=== PATIENT | female | born 1940 | race Caucasian/White ===

== ENCOUNTER 2017-08-19 19:37 | Emergency (ER) | payer MEDICARE, OTHER ==
[~2017-08-19] VITALS: Ht 157.5 cm; Wt 56.7 kg
[2017-08-19 19:49] VITALS: BP 188/92
== END 2017-08-20 01:18 | disposition home or self-care (01) ==
LOC: ER 19:37
DX: B02.9 Zoster without complications (principal); E11.9 Type 2 diabetes mellitus without complications; I10 Essential (primary) hypertension; E78.5 Hyperlipidemia, unspecified
CPT/HCPCS: 82962

== ENCOUNTER 2021-05-26 22:09 | Inpatient (IN) | payer MEDICARE, OTHER ==
[~2021-05-26] VITALS: Ht 157.5 cm; Wt 62.0 kg
[2021-05-26 23:20] LABS: Basophils # (auto) 0 10 ^3/uL (0-0.2); Basophils % (auto) 0.6 % (0.0-2.0); Eosinophils # (auto) 0 10 ^3/uL (0-0.8); Eosinophils % (auto) 0.4 % (0.0-7.0); Hematocrit 37.7 % (36.0-46.0); Hemoglobin 13.1 g/dL (12.2-16.2); Lymphocytes # (auto) 0.6 10 ^3/uL (0.4-5.4); Lymphocytes % (auto) 7.8 % (10.0-50.0); Mean Corpuscular Hemoglobin 33.3 pg (28.0-32.0); Mean Corpuscular Hgb Conc. 34.7 g/dL (32.0-36.0); Monocytes # (auto) 1.2 10 ^3/uL (0-1.3); Monocytes % (auto) 16.5 % (0.0-12.0); Neutrophils # (auto) 5.4 10 ^3/uL (1.6-8.6); Neutrophils % (auto) 74.7 % (37.0-80.0); Nucleated Red Blood Cells % 0.1 %; Red Blood Cells 3.92 10^6/uL (4.0-5.20); Red Cell Distribution Width 13.5 % (11.8-14.3); White Blood Cell 7.2 10^3/uL (4.4-10.8)
[2021-05-26 23:39] LABS: Albumin 3.7 g/dL (3.4-5.0); Calcium 8.5 mg/dL (8.5-10.1)
[2021-05-26 23:45] LABS: BUN/Creatinine Ratio 16.5; Bilirubin, Total 0.5 mg/dL (0.2-1.0); Total Protein 7.2 g/dL (6.4-8.2)
[2021-05-27] MEDS ORDERED: SODIUM CHLORIDE 0.9% 1,000 ML IV SCH (07:45)
[2021-05-27] MEDS ORDERED: MORPHINE SULFATE INJECTION 2 MG/ML SYRG IV PRN (07:45)
[2021-05-27] MEDS ORDERED: HYDROcodone-ACET 5/325MG TAB PO PRN (07:45)
[2021-05-27] MEDS ORDERED: DEXTROSE (50%) 50ML SYRG IV PRN (07:45)
[2021-05-27] MEDS ORDERED: ONDANSETRON HCL 4 MG/2 ML VIAL IV PRN (07:45)
[2021-05-27] MEDS ORDERED: DOCUSATE SOD 100 MG CAP PO PRN (07:45)
[2021-05-27] MEDS ORDERED: NITROGLYCERIN 0.4 MG SL TAB SL PRN (07:45)
[2021-05-27] MEDS ORDERED: FUROSEMIDE 20 MG/2 ML VIAL IV ONE (07:45)
[2021-05-27] MEDS ORDERED: ACETAMINOPHEN 500 MG TAB PO PRN (07:45)
[2021-05-27] MEDS: ALBUTEROL SULF HFA 90MCG INH 200DOSE IN PRN ×2 (09:00→20:33)
[2021-05-27] MEDS: BUDESONIDE (INHALATION) 180 MCG IH IN SCH ×2 (09:00→20:32)
[2021-05-27 09:38] LABS: Basophils # (auto) 0 10 ^3/uL (0-0.2); Basophils % (auto) 0.6 % (0.0-2.0); Eosinophils # (auto) 0 10 ^3/uL (0-0.8); Eosinophils % (auto) 0.1 % (0.0-7.0); Hematocrit 37.4 % (36.0-46.0); Hemoglobin 12.7 g/dL (12.2-16.2); Lymphocytes # (auto) 0.7 10 ^3/uL (0.4-5.4); Mean Corpuscular Hemoglobin 32.9 pg (28.0-32.0); Mean Corpuscular Volume 96.6 fL (80.0-100.0); Monocytes # (auto) 1.2 10 ^3/uL (0-1.3); Monocytes % (auto) 14.4 % (0.0-12.0); Neutrophils # (auto) 6.3 10 ^3/uL (1.6-8.6); Neutrophils % (auto) 75.9 % (37.0-80.0); Nucleated Red Blood Cells % 0.1 %; Red Blood Cells 3.87 10^6/uL (4.0-5.20); Red Cell Distribution Width 13.6 % (11.8-14.3); White Blood Cell 8.3 10^3/uL (4.4-10.8)
[2021-05-27 10:05] LABS: Potassium 3.7 mmol/L (3.5-5.1)
[2021-05-27 10:11] LABS: Albumin 3.5 g/dL (3.4-5.0); BUN/Creatinine Ratio 18.8; Bilirubin, Total 0.4 mg/dL (0.2-1.0); Calcium 8.7 mg/dL (8.5-10.1); Magnesium 1.9 mg/dL (1.6-2.6); Total Protein 6.8 g/dL (6.4-8.2)
[2021-05-27 10:15] VITALS: BP 152/53
[2021-05-27] MEDS ORDERED: REMDESIVIR PER PHARMACY 0 ML IV SCH (10:45)
[2021-05-27] MEDS ORDERED: ATOR10TA PO (11:09)
[2021-05-27] MEDS ORDERED: NIFE1TAB36 PO (11:09)
[2021-05-27] MEDS ORDERED: IRBE300T43 PO (11:09)
[2021-05-27] MEDS ORDERED: DONE1TAB88 PO (11:09)
[2021-05-27] MEDS ORDERED: PIO30T PO (11:09)
[2021-05-27] MEDS ORDERED: METO-6 PO (11:09)
[2021-05-27] MEDS ORDERED: ASPI1TAB20 PO (11:09)
[2021-05-27] MEDS ORDERED: METF-372 PO (11:09)
[2021-05-27] MEDS ORDERED: METOPROLOL SUCCINATE XL 50 MG TAB PO ONE (11:30)
[2021-05-27] MEDS ORDERED: NIFEdipine ER 30 MG TAB PO ONE (11:30)
[2021-05-27] MEDS: DexAMETHasone SOD PHOS 10MG/1ML VIAL INJ IV SCH (11:33)
[2021-05-27] MEDS: FUROSEMIDE 20 MG/2 ML VIAL IV SCH (11:33)
[2021-05-27] MEDS: FAMOTIDINE (10MG/ML) 2ML VL IV SCH ×2 (11:33→22:14)
[2021-05-27] MEDS: ASCORBIC ACID 1,000 MG TAB PO SCH (11:34)
[2021-05-27] MEDS: ZINC SULFATE 220mg CAP or TAB PO SCH (11:34)
[2021-05-27] MEDS: CHOLECALCIFEROL (VITD3) 2,000 UNIT CAP/TAB PO SCH (11:34)
[2021-05-27] MEDS: MULTIPLE VITAMIN TAB PO SCH (11:34)
[2021-05-27] MEDS: AZITHROMYCIN 500MG/ 250ML 250 ML IV SCH (11:35)
[2021-05-27] MEDS: ENOXAPARIN SOD 40 MG/0.4 ML SYRINGE SC SCH ×2 (11:35→22:15)
[2021-05-27] MEDS: ACCU-CHEK COMFORT CURVE STRIP VI SCH ×3 (11:49→22:15)
[2021-05-27] MEDS ORDERED: REMDESIVIR 200 MG in NS 210ml LOADING DOSE ADULT IV ONE (12:00)
[2021-05-27] MEDS: InsuLIN REG 1unit/0.01ml Soln (100units/ml) SC SCH ×3 (12:14→22:08)
[2021-05-27 13:00] VITALS: BP 152/53
[2021-05-27 17:00] VITALS: BP 154/76
[2021-05-27 22:00] VITALS: BP 114/63
[2021-05-27] MEDS: INSULIN LANTUS (GLARGINE) 1 /0.01ml (100units/ml) SC SCH (22:07)
[2021-05-27] MEDS: ATORVASTATIN 20 MG TAB PO SCH (22:14)
[2021-05-27] MEDS: DONEPEZIL HYDROCHLORIDE 5 MG TAB PO SCH (22:14)
[2021-05-28 05:00] VITALS: BP 113/73
[2021-05-28] MEDS: BUDESONIDE (INHALATION) 180 MCG IH IN SCH ×2 (05:45→20:00)
[2021-05-28] MEDS: ALBUTEROL SULF HFA 90MCG INH 200DOSE IN PRN ×2 (05:45→20:00)
[2021-05-28] MEDS: ACCU-CHEK COMFORT CURVE STRIP VI SCH ×4 (06:18→21:23)
[2021-05-28] MEDS: InsuLIN REG 1unit/0.01ml Soln (100units/ml) SC SCH ×4 (06:24→21:21)
[2021-05-28 07:38] LABS: Basophils # (auto) 0 10 ^3/uL (0-0.2); Basophils % (auto) 0.1 % (0.0-2.0); Eosinophils # (auto) 0 10 ^3/uL (0-0.8); Hematocrit 37.9 % (36.0-46.0); Hemoglobin 13.3 g/dL (12.2-16.2); Lymphocytes # (auto) 0.9 10 ^3/uL (0.4-5.4); Lymphocytes % (auto) 7.8 % (10.0-50.0); Mean Corpuscular Hemoglobin 33.5 pg (28.0-32.0); Mean Corpuscular Volume 95.8 fL (80.0-100.0); Monocytes # (auto) 1.1 10 ^3/uL (0-1.3); Neutrophils # (auto) 10.1 10 ^3/uL (1.6-8.6); Neutrophils % (auto) 83.1 % (37.0-80.0); Red Blood Cells 3.96 10^6/uL (4.0-5.20); Red Cell Distribution Width 13.3 % (11.8-14.3); White Blood Cell 12.1 10^3/uL (4.4-10.8)
[2021-05-28 07:46] LABS: Albumin 3.2 g/dL (3.4-5.0); Calcium 8.6 mg/dL (8.5-10.1); Potassium 3.6 mmol/L (3.5-5.1)
[2021-05-28 07:49] LABS: Bilirubin, Total 0.3 mg/dL (0.2-1.0); Total Protein 6.6 g/dL (6.4-8.2)
[2021-05-28 09:00] VITALS: BP 122/63
[2021-05-28] MEDS: FAMOTIDINE (10MG/ML) 2ML VL IV SCH ×2 (09:27→21:20)
[2021-05-28] MEDS: FUROSEMIDE 20 MG/2 ML VIAL IV SCH (09:27)
[2021-05-28] MEDS: DexAMETHasone SOD PHOS 10MG/1ML VIAL INJ IV SCH (09:27)
[2021-05-28] MEDS: AZITHROMYCIN 500MG/ 250ML 250 ML IV SCH (09:28)
[2021-05-28] MEDS: ZINC SULFATE 220mg CAP or TAB PO SCH (09:28)
[2021-05-28] MEDS: LOSARTAN POTASSIUM 25 MG TAB PO SCH (09:29)
[2021-05-28] MEDS: NIFEdipine ER 30 MG TAB PO SCH (09:29)
[2021-05-28] MEDS: MULTIPLE VITAMIN TAB PO SCH (09:29)
[2021-05-28] MEDS: METOPROLOL SUCCINATE XL 50 MG TAB PO SCH (09:30)
[2021-05-28] MEDS: ASCORBIC ACID 1,000 MG TAB PO SCH (09:30)
[2021-05-28] MEDS: CHOLECALCIFEROL (VITD3) 2,000 UNIT CAP/TAB PO SCH (09:31)
[2021-05-28] MEDS: ENOXAPARIN SOD 40 MG/0.4 ML SYRINGE SC SCH ×2 (09:41→21:23)
[2021-05-28] MEDS ORDERED: FUROSEMIDE 40 MG TAB PO SCH (10:00)
[2021-05-28 13:00] VITALS: BP 133/64
[2021-05-28] MEDS: REMDESIVIR 100mg 100 MG in SODIUM CHL 0.9% 230 ML IV SCH (15:58)
[2021-05-28 17:00] VITALS: BP 132/68
[2021-05-28] MEDS: DONEPEZIL HYDROCHLORIDE 5 MG TAB PO SCH (21:20)
[2021-05-28] MEDS: ATORVASTATIN 20 MG TAB PO SCH (21:20)
[2021-05-28] MEDS: INSULIN LANTUS (GLARGINE) 1 /0.01ml (100units/ml) SC SCH (21:23)
[2021-05-28 22:00] VITALS: BP 124/47
[2021-05-29 05:00] VITALS: BP 126/66
[2021-05-29] MEDS: InsuLIN REG 1unit/0.01ml Soln (100units/ml) SC SCH ×4 (06:00→21:48)
[2021-05-29] MEDS: ACCU-CHEK COMFORT CURVE STRIP VI SCH ×4 (06:03→21:49)
[2021-05-29 07:04] LABS: Calcium 8.9 mg/dL (8.5-10.1); Potassium 3.8 mmol/L (3.5-5.1)
[2021-05-29 07:06] LABS: Albumin 3.3 g/dL (3.4-5.0)
[2021-05-29 07:09] LABS: Bilirubin, Total 0.4 mg/dL (0.2-1.0); Total Protein 6.6 g/dL (6.4-8.2)
[2021-05-29] MEDS: DexAMETHasone SOD PHOS 10MG/1ML VIAL INJ IV SCH (08:51)
[2021-05-29] MEDS: FUROSEMIDE 20 MG/2 ML VIAL IV SCH (08:51)
[2021-05-29] MEDS: AZITHROMYCIN 500MG/ 250ML 250 ML IV SCH (08:51)
[2021-05-29] MEDS: FAMOTIDINE (10MG/ML) 2ML VL IV SCH ×2 (08:51→21:49)
[2021-05-29] MEDS: NIFEdipine ER 30 MG TAB PO SCH (08:52)
[2021-05-29] MEDS: MULTIPLE VITAMIN TAB PO SCH (08:52)
[2021-05-29] MEDS: ZINC SULFATE 220mg CAP or TAB PO SCH (08:52)
[2021-05-29] MEDS: LOSARTAN POTASSIUM 25 MG TAB PO SCH (08:52)
[2021-05-29] MEDS: ASCORBIC ACID 1,000 MG TAB PO SCH (08:53)
[2021-05-29] MEDS: METOPROLOL SUCCINATE XL 50 MG TAB PO SCH (08:53)
[2021-05-29] MEDS: CHOLECALCIFEROL (VITD3) 2,000 UNIT CAP/TAB PO SCH (08:53)
[2021-05-29] MEDS: ENOXAPARIN SOD 40 MG/0.4 ML SYRINGE SC SCH (08:54)
[2021-05-29 09:00] VITALS: BP 133/62
[2021-05-29] MEDS: BUDESONIDE (INHALATION) 180 MCG IH IN SCH ×2 (09:32→19:03)
[2021-05-29] MEDS: ALBUTEROL SULF HFA 90MCG INH 200DOSE IN PRN ×2 (09:33→19:03)
[2021-05-29 13:00] VITALS: BP 130/63
[2021-05-29] MEDS: REMDESIVIR 100mg 100 MG in SODIUM CHL 0.9% 230 ML IV SCH (13:59)
[2021-05-29 17:00] VITALS: BP 129/66
[2021-05-29] MEDS: INSULIN LANTUS (GLARGINE) 1 /0.01ml (100units/ml) SC SCH (21:48)
[2021-05-29] MEDS: DONEPEZIL HYDROCHLORIDE 5 MG TAB PO SCH (21:49)
[2021-05-29] MEDS: ATORVASTATIN 20 MG TAB PO SCH (21:49)
[2021-05-30] MEDS: InsuLIN REG 1unit/0.01ml Soln (100units/ml) SC SCH ×4 (06:00→21:53)
[2021-05-30] MEDS: ACCU-CHEK COMFORT CURVE STRIP VI SCH ×4 (06:00→21:51)
[2021-05-30 06:18] LABS: Albumin 3.2 g/dL (3.4-5.0); Calcium 8.6 mg/dL (8.5-10.1)
[2021-05-30 06:23] LABS: Bilirubin, Total 0.4 mg/dL (0.2-1.0); Total Protein 6.2 g/dL (6.4-8.2)
[2021-05-30] MEDS: BUDESONIDE (INHALATION) 180 MCG IH IN SCH ×2 (07:25→19:34)
[2021-05-30] MEDS: ALBUTEROL SULF HFA 90MCG INH 200DOSE IN PRN ×2 (07:26→19:34)
[2021-05-30 09:00] VITALS: BP 132/61
[2021-05-30] MEDS: FUROSEMIDE 20 MG/2 ML VIAL IV SCH (09:42)
[2021-05-30] MEDS: DexAMETHasone SOD PHOS 10MG/1ML VIAL INJ IV SCH (09:42)
[2021-05-30] MEDS: FAMOTIDINE (10MG/ML) 2ML VL IV SCH (09:43)
[2021-05-30] MEDS: AZITHROMYCIN 500MG/ 250ML 250 ML IV SCH (09:44)
[2021-05-30] MEDS: MULTIPLE VITAMIN TAB PO SCH (09:45)
[2021-05-30] MEDS: ASCORBIC ACID 1,000 MG TAB PO SCH (09:45)
[2021-05-30] MEDS: CHOLECALCIFEROL (VITD3) 2,000 UNIT CAP/TAB PO SCH (09:45)
[2021-05-30] MEDS: ZINC SULFATE 220mg CAP or TAB PO SCH (09:45)
[2021-05-30] MEDS: METOPROLOL SUCCINATE XL 50 MG TAB PO SCH (09:46)
[2021-05-30] MEDS: NIFEdipine ER 30 MG TAB PO SCH (09:48)
[2021-05-30] MEDS: LOSARTAN POTASSIUM 25 MG TAB PO SCH ×3 (09:51→10:41)
[2021-05-30 12:54] VITALS: BP 122/65
[2021-05-30] MEDS: REMDESIVIR 100mg 100 MG in SODIUM CHL 0.9% 230 ML IV SCH (16:06)
[2021-05-30] MEDS: metFORMIN HYDROCHLORIDE 500 MG TAB PO SCH (17:23)
[2021-05-30] MEDS: DONEPEZIL HYDROCHLORIDE 5 MG TAB PO SCH (21:50)
[2021-05-30] MEDS: ATORVASTATIN 20 MG TAB PO SCH (21:51)
[2021-05-31 01:11] VITALS: BP 120/58
[2021-05-31 05:00] VITALS: BP 144/74
[2021-05-31] MEDS: ACCU-CHEK COMFORT CURVE STRIP VI SCH ×3 (06:03→17:25)
[2021-05-31] MEDS: ALBUTEROL SULF HFA 90MCG INH 200DOSE IN PRN (06:05)
[2021-05-31] MEDS: InsuLIN REG 1unit/0.01ml Soln (100units/ml) SC SCH ×3 (06:05→17:32)
[2021-05-31] MEDS: BUDESONIDE (INHALATION) 180 MCG IH IN SCH (06:05)
[2021-05-31 07:50] LABS: Basophils # (auto) 0 10 ^3/uL (0-0.2); Basophils % (auto) 0.2 % (0.0-2.0); Eosinophils # (auto) 0 10 ^3/uL (0-0.8); Eosinophils % (auto) 0.2 % (0.0-7.0); Hematocrit 41.2 % (36.0-46.0); Hemoglobin 14.1 g/dL (12.2-16.2); Lymphocytes # (auto) 2.1 10 ^3/uL (0.4-5.4); Lymphocytes % (auto) 34.3 % (10.0-50.0); Mean Corpuscular Hemoglobin 32.8 pg (28.0-32.0); Mean Corpuscular Hgb Conc. 34.2 g/dL (32.0-36.0); Mean Corpuscular Volume 96.1 fL (80.0-100.0); Monocytes # (auto) 0.5 10 ^3/uL (0-1.3); Monocytes % (auto) 8.6 % (0.0-12.0); Neutrophils # (auto) 3.6 10 ^3/uL (1.6-8.6); Neutrophils % (auto) 56.7 % (37.0-80.0); Red Blood Cells 4.28 10^6/uL (4.0-5.20); White Blood Cell 6.3 10^3/uL (4.4-10.8)
[2021-05-31 08:38] LABS: Albumin 3.1 g/dL (3.4-5.0); BUN/Creatinine Ratio 27.6; Bilirubin, Total 0.5 mg/dL (0.2-1.0); CRP High Sensitivity 1.3 mg/dL (< 0.3); Calcium 8.5 mg/dL (8.5-10.1); Total Protein 6.3 g/dL (6.4-8.2)
[2021-05-31 09:00] VITALS: BP 138/69
[2021-05-31] MEDS: metFORMIN HYDROCHLORIDE 500 MG TAB PO SCH ×2 (09:13→17:26)
[2021-05-31] MEDS: FUROSEMIDE 20 MG/2 ML VIAL IV SCH (09:14)
[2021-05-31] MEDS: AZITHROMYCIN 500MG/ 250ML 250 ML IV SCH (09:14)
[2021-05-31] MEDS ORDERED: DEX4T PO (09:15)
[2021-05-31] MEDS: DexAMETHasone SOD PHOS 10MG/1ML VIAL INJ IV SCH (09:15)
[2021-05-31] MEDS ORDERED: CHOL1CAP47 PO (09:15)
[2021-05-31] MEDS: ZINC SULFATE 220mg CAP or TAB PO SCH (09:15)
[2021-05-31] MEDS ORDERED: ASCO10003 PO (09:15)
[2021-05-31] MEDS ORDERED: ZINC220T6 PO (09:15)
[2021-05-31] MEDS ORDERED: ALBUAER3 IN (09:15)
[2021-05-31] MEDS: MULTIPLE VITAMIN TAB PO SCH (09:16)
[2021-05-31] MEDS: ASCORBIC ACID 1,000 MG TAB PO SCH (09:17)
[2021-05-31] MEDS: NIFEdipine ER 30 MG TAB PO SCH (09:17)
[2021-05-31] MEDS: CHOLECALCIFEROL (VITD3) 2,000 UNIT CAP/TAB PO SCH (09:17)
[2021-05-31] MEDS: LOSARTAN POTASSIUM 25 MG TAB PO SCH (09:18)
[2021-05-31] MEDS ORDERED: FAMOTIDINE 20 MG TAB PO SCH (10:00)
[2021-05-31 13:00] VITALS: BP 134/63
[2021-05-31 14:22] VITALS: BP 138/69
[2021-05-31] MEDS: REMDESIVIR 100mg 100 MG in SODIUM CHL 0.9% 230 ML IV SCH (16:00)
[2021-05-31 17:00] VITALS: BP 129/70
== END 2021-05-31 18:25 | disposition home or self-care (01) | DRG 871 ==
LOC: ER 22:09 → TELE 05-27 07:35 → TELE-EAST 05-27 10:15
PROVIDERS: ADMIT Nurse Practitioner Family; ATTEND Internal Medicine
PROC: 3E0234Z Introduction of Serum, Toxoid and Vaccine into Muscle, Percutaneous Approach (ICD-10-PCS; principal; 2021-05-27)
DX: A41.89 Other specified sepsis (principal); U07.1 COVID-19; J96.01 Acute respiratory failure with hypoxia; J12.82 Pneumonia due to coronavirus disease 2019; E87.1 Hypo-osmolality and hyponatremia; J44.1 Chronic obstructive pulmonary disease with (acute) exacerbation; J98.11 Atelectasis; J44.0 Chronic obstructive pulmonary disease with (acute) lower respiratory infection; D89.839 Cytokine release syndrome, grade unspecified; E11.9 Type 2 diabetes mellitus without complications; E78.5 Hyperlipidemia, unspecified; F17.200 Nicotine dependence, unspecified, uncomplicated; G31.84 Mild cognitive impairment of uncertain or unknown etiology; I10 Essential (primary) hypertension; Z79.51 Long term (current) use of inhaled steroids; Z79.82 Long term (current) use of aspirin; Z79.899 Other long term (current) drug therapy; F17.210 Nicotine dependence, cigarettes, uncomplicated; Z23 Encounter for immunization
CPT/HCPCS: 36415; 71045; 80053; 82728; 82962; 83036; 83615; 83735; 83880; 84484; 85025; 85379; 86141; 87426; 93005; 93306; 94640; 96361; 96374; G0378; J1100; J1815; J2405; J3490

== ENCOUNTER 2021-07-07 16:46 | Emergency (ER) | payer MEDICARE ==
[~2021-07-07] VITALS: Ht 157.5 cm; Wt 59.0 kg
[~2021-07-07 16:46] MED LIST: ALBUAER3 IN; ASCO10003 PO; ASPI1TAB20 PO; ATOR10TA PO; CHOL1CAP47 PO; DEX4T PO; DONE1TAB88 PO; IRBE300T43 PO; METF-372 PO; NIFE1TAB36 PO; PIO30T PO; ZINC220T6 PO
[2021-07-07] MEDS ORDERED: ACETAMINOPHEN 325 MG TAB PO ONE (18:00)
[2021-07-07 18:10] VITALS: BP 188/80
[2021-07-07] MEDS ORDERED: CEPH-509 PO (18:13)
[2021-07-07] MEDS ORDERED: ACET-1080 PO (18:13)
== END 2021-07-07 18:34 | disposition home or self-care (01) ==
LOC: ER 16:55
DX: S00.83XA Contusion of other part of head, initial encounter (principal); E11.9 Type 2 diabetes mellitus without complications; E78.5 Hyperlipidemia, unspecified; I10 Essential (primary) hypertension; W10.8XXA Fall (on) (from) other stairs and steps, initial encounter; Y93.89 Activity, other specified; Y92.89 Other specified places as the place of occurrence of the external cause; Y99.8 Other external cause status
CPT/HCPCS: 70450; 70486; 72125

== ENCOUNTER 2022-01-29 16:33 | Inpatient (IN) | payer MEDICARE, OTHER ==
[~2022-01-29] VITALS: Ht 157.5 cm; Wt 64.5 kg
[~2022-01-29 16:33] MED LIST changes: +ACET-1080 PO; +CEPH-509 PO
[2022-01-29] MEDS ORDERED: LABETALOL HCL 200 MG TAB PO ONE (17:15)
[2022-01-29] MEDS ORDERED: LABETALOL HCL 5 MG/ML 4ML SYRINGE IV ONE (17:15)
[2022-01-29 17:26] LABS: Basophils # (auto) 0 10 ^3/uL (0-0.2); Basophils % (auto) 0.6 % (0.0-2.0); Eosinophils # (auto) 0.2 10 ^3/uL (0-0.8); Eosinophils % (auto) 2.6 % (0.0-7.0); Hematocrit 44.6 % (36.0-46.0); Hemoglobin 14.5 g/dL (12.2-16.2); Lymphocytes # (auto) 1.6 10 ^3/uL (0.4-5.4); Mean Corpuscular Hemoglobin 31.4 pg (28.0-32.0); Mean Corpuscular Hgb Conc. 32.5 g/dL (32.0-36.0); Mean Corpuscular Volume 96.5 fL (80.0-100.0); Monocytes # (auto) 0.7 10 ^3/uL (0-1.3); Monocytes % (auto) 10.5 % (0.0-12.0); Neutrophils # (auto) 4.6 10 ^3/uL (1.6-8.6); Neutrophils % (auto) 64.3 % (37.0-80.0); Nucleated Red Blood Cells % 0.1 %; Red Blood Cells 4.62 10^6/uL (4.0-5.20); Red Cell Distribution Width 14.1 % (11.8-14.3); White Blood Cell 7.1 10^3/uL (4.4-10.8)
[2022-01-29 17:42] LABS: Calcium 9.7 mg/dL (8.5-10.1); Potassium 4.8 mmol/L (3.5-5.1)
[2022-01-29 17:46] LABS: BUN/Creatinine Ratio 16.2; Bilirubin, Total 0.6 mg/dL (0.2-1.0)
[2022-01-29 18:35] LABS: BUN/Creatinine Ratio 18.6; Calcium 9.8 mg/dL (8.5-10.1); Magnesium 1.9 mg/dL (1.6-2.6); Potassium 4.5 mmol/L (3.5-5.1)
[2022-01-29 19:03] LABS: INR 0.97 (0.9-1.15); Partial Thromboplastin Time 29.8 sec (24.6-33.4)
[2022-01-29 19:10] LABS: Urine Bacteria FEW /hpf (None Seen); Urine Blood Negative /uL (Negative); Urine Hyaline Cast FEW /lpf (0 - 2); Urine Specific Gravity 1.007 (1.001-1.035); Urine WBC <1 /hpf (0 - 5)
[2022-01-29] MEDS ORDERED: ONDANSETRON HCL 4 MG/2 ML VIAL IV PRN (19:15)
[2022-01-29] MEDS ORDERED: MORPHINE SULFATE INJ 2 MG/ml SYRG IV PRN ×2 (19:15)
[2022-01-29] MEDS ORDERED: NITROGLYCERIN 0.4 MG SL TAB SL PRN (19:15)
[2022-01-29] MEDS ORDERED: DEXTROSE (50%) 50ML SYRG IV PRN (19:30)
[2022-01-29] MEDS ORDERED: SODIUM CHLORIDE 0.9% 500 ML IV ONE (19:30)
[2022-01-29] MEDS: AMIODARONE HCL 200 MG TAB PO SCH ×2 (20:25→22:25)
[2022-01-29] MEDS: METOPROLOL SUCCINATE XL 50 MG TAB PO SCH ×2 (20:25→22:25)
[2022-01-29] MEDS: InsuLIN REG 1unit/0.01ml Soln (100units/ml) SC SCH (22:00)
[2022-01-29] MEDS: ACCU-CHEK COMFORT CURVE STRIP VI SCH (22:26)
[2022-01-29] MEDS: HEPARIN SODIUM (PORCINE) 5000 UNITS/ML 1ML VIAL SC SCH (22:27)
[2022-01-30] VITALS (7 sets, daily range): BP systolic 129–170; BP diastolic 56–87
[2022-01-30 05:18] LABS: Basophils # (auto) 0 10 ^3/uL (0-0.2); Basophils % (auto) 0.5 % (0.0-2.0); Eosinophils # (auto) 0.2 10 ^3/uL (0-0.8); Hematocrit 38.2 % (36.0-46.0); Hemoglobin 12.6 g/dL (12.2-16.2); Lymphocytes # (auto) 1.4 10 ^3/uL (0.4-5.4); Lymphocytes % (auto) 24.4 % (10.0-50.0); Mean Corpuscular Hgb Conc. 33.1 g/dL (32.0-36.0); Mean Corpuscular Volume 96.8 fL (80.0-100.0); Monocytes # (auto) 0.6 10 ^3/uL (0-1.3); Monocytes % (auto) 10.4 % (0.0-12.0); Neutrophils # (auto) 3.4 10 ^3/uL (1.6-8.6); Neutrophils % (auto) 60.7 % (37.0-80.0); Red Blood Cells 3.94 10^6/uL (4.0-5.20); Red Cell Distribution Width 14.3 % (11.8-14.3); White Blood Cell 5.6 10^3/uL (4.4-10.8)
[2022-01-30 05:38] LABS: Potassium 3.8 mmol/L (3.5-5.1)
[2022-01-30 05:47] LABS: Albumin 3.2 g/dL (3.4-5.0); BUN/Creatinine Ratio 18.7; Calcium 8.5 mg/dL (8.5-10.1)
[2022-01-30] MEDS: AMIODARONE HCL 200 MG TAB PO SCH (05:47)
[2022-01-30 05:59] LABS: Bilirubin, Total 0.5 mg/dL (0.2-1.0); Total Protein 5.9 g/dL (6.4-8.2)
[2022-01-30] MEDS: InsuLIN REG 1unit/0.01ml Soln (100units/ml) SC SCH ×4 (06:19→22:00)
[2022-01-30] MEDS: ACCU-CHEK COMFORT CURVE STRIP VI SCH ×4 (06:19→22:00)
[2022-01-30] MEDS: HEPARIN SODIUM (PORCINE) 5000 UNITS/ML 1ML VIAL SC SCH (09:25)
[2022-01-30] MEDS ORDERED: METOPROLOL SUCCINATE XL 50 MG TAB PO SCH (10:00)
[2022-01-30] MEDS ORDERED: NICOTINE 14 MG/24HR TOPICAL PATCH TD ONE (12:00)
[2022-01-30] MEDS ORDERED: ATORVASTATIN 20 MG TAB PO SCH (22:00)
[2022-01-30] MEDS: APIXABAN 5 MG TAB PO SCH (22:35)
[2022-01-30] MEDS: METOPROLOL SUCCINATE XL 50 MG TAB PO SCH (22:36)
[2022-01-31 05:00] VITALS: BP 146/73
[2022-01-31] MEDS: InsuLIN REG 1unit/0.01ml Soln (100units/ml) SC SCH ×2 (07:00→11:45)
[2022-01-31] MEDS: ACCU-CHEK COMFORT CURVE STRIP VI SCH ×2 (07:09→11:45)
[2022-01-31 09:00] VITALS: BP 162/84
[2022-01-31] MEDS: APIXABAN 5 MG TAB PO SCH (09:34)
[2022-01-31] MEDS: METOPROLOL SUCCINATE XL 50 MG TAB PO SCH (09:37)
[2022-01-31] MEDS ORDERED: NICOTINE 14 MG/24HR TOPICAL PATCH TD SCH (10:00)
[2022-01-31] MEDS ORDERED: AMIODARONE HCL 200 MG TAB PO SCH (10:00)
[2022-01-31] MEDS ORDERED: APIX5TAB PO (11:10)
[2022-01-31] MEDS ORDERED: METO-6 PO (11:10)
[2022-01-31] MEDS ORDERED: POTASSIUM CHL 20 Meq TABLET PO ONE (11:15)
[2022-01-31] MEDS ORDERED: FUROSEMIDE 20 MG/2 ML VIAL IV ONE (11:15)
[2022-01-31 13:00] VITALS: BP 155/88
[2022-01-31 15:34] VITALS: BP 155/88
== END 2022-01-31 16:55 | disposition home or self-care (01) | DRG 308 ==
LOC: ER 16:33 → TELE 19:11 → TELE-EAST 21:43
PROVIDERS: ADMIT Registered Nurse; ATTEND Internal Medicine
DX: I48.91 Unspecified atrial fibrillation (principal); I50.31 Acute diastolic (congestive) heart failure; I13.0 Hypertensive heart and chronic kidney disease with heart failure and stage 1 through stage 4 chronic kidney disease, or unspecified chronic kidney disease; E11.22 Type 2 diabetes mellitus with diabetic chronic kidney disease; N18.31 Chronic kidney disease, stage 3a; E11.65 Type 2 diabetes mellitus with hyperglycemia; Z20.822 Contact with and (suspected) exposure to COVID-19; E78.5 Hyperlipidemia, unspecified; J44.9 Chronic obstructive pulmonary disease, unspecified; Z72.0 Tobacco use; Z79.01 Long term (current) use of anticoagulants
CPT/HCPCS: 36415; 71045; 80048; 80053; 81001; 82962; 83735; 83880; 84443; 84484; 85025; 85610; 85730; 93005; 93306; 96361; 96374; 99291; G0378; J1815; J3490

== ENCOUNTER → 2022-02-14 | Outpatient (CLI) | payer MEDICARE, OTHER ==
[~2022-02-14] VITALS: Ht 157.5 cm; Wt 59.9 kg
[~2022-02-14] MED LIST changes: +ADENOSINE 50 MG in GIVE UN-DILUTED 0 ML IV ONE; +ADENOSINE 90 MG/30 ML INJ IV ONE; +APIX5TAB PO; +METO-6 PO
== END | disposition home or self-care (01) ==
LOC: Rad HDHVI 09:32
PROVIDERS: ATTEND Internal Medicine Cardiovascular Disease
DX: I10 Essential (primary) hypertension (principal); E78.5 Hyperlipidemia, unspecified; E11.9 Type 2 diabetes mellitus without complications; I48.91 Unspecified atrial fibrillation; J44.9 Chronic obstructive pulmonary disease, unspecified; R06.02 Shortness of breath; Z82.49 Family history of ischemic heart disease and other diseases of the circulatory system
CPT/HCPCS: 78452; 93005; 96374; 96375; A9500; J0153

== ENCOUNTER → 2022-02-27 | Outpatient (CLI) | payer MEDICARE, OTHER ==
[~2022-02-27] VITALS: Ht 157.5 cm; Wt 59.0 kg
[~2022-02-27] MED LIST changes: -ADENOSINE 50 MG in GIVE UN-DILUTED 0 ML IV ONE; -ADENOSINE 90 MG/30 ML INJ IV ONE
== END | disposition home or self-care (01) ==
LOC: Rad HDHVI 09:03
PROVIDERS: ATTEND Internal Medicine Cardiovascular Disease
DX: R06.02 Shortness of breath (principal); I48.19 Other persistent atrial fibrillation; I49.5 Sick sinus syndrome; I10 Essential (primary) hypertension; E78.5 Hyperlipidemia, unspecified; D68.59 Other primary thrombophilia; R60.9 Edema, unspecified
CPT/HCPCS: 78472; 96374; 96375; A9505

== ENCOUNTER 2022-05-10 14:07 | Emergency (ER) | payer MEDICARE, OTHER ==
[~2022-05-10] VITALS: Ht 157.5 cm; Wt 60.2 kg
[2022-05-10] MEDS ORDERED: OXYMETAZOLINE HCL 0.05 % NASAL SPRAY 15ML ONE (14:30)
[2022-05-10 17:30] VITALS: BP 154/57
== END 2022-05-10 18:01 | disposition home or self-care (01) ==
LOC: ER 14:07
DX: R04.0 Epistaxis (principal); I48.91 Unspecified atrial fibrillation; J44.9 Chronic obstructive pulmonary disease, unspecified; E11.8 Type 2 diabetes mellitus with unspecified complications; E78.5 Hyperlipidemia, unspecified; I10 Essential (primary) hypertension; Z79.899 Other long term (current) drug therapy; Z98.51 Tubal ligation status; Z79.84 Long term (current) use of oral hypoglycemic drugs
CPT/HCPCS: 30901

== ENCOUNTER 2022-05-12 13:54 | Emergency (ER) | payer MEDICARE, OTHER ==
[~2022-05-12] VITALS: Ht 157.5 cm; Wt 59.0 kg
[2022-05-12 15:20] VITALS: BP 125/74
== END 2022-05-12 15:19 | disposition home or self-care (01) ==
LOC: ER 13:54
DX: R04.0 Epistaxis (principal); J44.9 Chronic obstructive pulmonary disease, unspecified; E11.9 Type 2 diabetes mellitus without complications; E78.5 Hyperlipidemia, unspecified; I10 Essential (primary) hypertension; Z98.51 Tubal ligation status; Z48.00 Encounter for change or removal of nonsurgical wound dressing

== ENCOUNTER 2022-09-14 10:52 | Inpatient (IN) | payer MEDICARE, OTHER ==
[~2022-09-14] VITALS: Ht 157.5 cm; Wt 58.4 kg
[2022-09-14 12:22] LABS: Basophils # (auto) 0.1 10 ^3/uL (0-0.2); Basophils % (auto) 1.1 % (0.0-2.0); Eosinophils # (auto) 0.2 10 ^3/uL (0-0.8); Eosinophils % (auto) 3.1 % (0.0-7.0); Hematocrit 43.5 % (36.0-46.0); Hemoglobin 14.8 g/dL (12.2-16.2); Lymphocytes # (auto) 0.9 10 ^3/uL (0.4-5.4); Lymphocytes % (auto) 15.5 % (10.0-50.0); Mean Corpuscular Volume 94.2 fL (80.0-100.0); Monocytes # (auto) 0.5 10 ^3/uL (0-1.3); Neutrophils # (auto) 4.2 10 ^3/uL (1.6-8.6); Neutrophils % (auto) 72.3 % (37.0-80.0); Nucleated Red Blood Cells % 0.2 %; Red Blood Cells 4.61 10^6/uL (4.0-5.20); Red Cell Distribution Width 14.6 % (11.8-14.3); White Blood Cell 5.7 10^3/uL (4.4-10.8)
[2022-09-14 12:50] LABS: Albumin 4.2 g/dL (3.4-5.0); Potassium 3.9 mmol/L (3.5-5.1)
[2022-09-14 12:51] LABS: Lactic Acid w/Reflex 2.5 mmol/L (0.4-2.0)
[2022-09-14 12:56] LABS: Bilirubin, Total 0.5 mg/dL (0.2-1.0); Calcium 11.3 mg/dL (8.5-10.1); Magnesium 1.9 mg/dL (1.6-2.6)
[2022-09-14] MEDS ORDERED: SODIUM CHLORIDE 0.9% 1,000 ML IV ONE ×2 (13:45→16:00)
[2022-09-14] MEDS ORDERED: DEXTROSE (50%) 50ML SYRG IV PRN (15:15)
[2022-09-14] MEDS ORDERED: MORPHINE SULFATE INJ 2 MG/ml SYRG IV PRN (15:15)
[2022-09-14] MEDS ORDERED: ONDANSETRON HCL 4 MG/2 ML VIAL IV PRN (15:15)
[2022-09-14] MEDS ORDERED: DOCUSATE SOD 100 MG CAP PO PRN (15:15)
[2022-09-14] MEDS: SODIUM CHLORIDE 0.9% 1,000 ML IV SCH (16:07)
[2022-09-14] MEDS: InsuLIN REG 1unit/0.01ml Soln (100units/ml) SC SCH ×2 (16:57→22:00)
[2022-09-14] MEDS: ACCU-CHEK COMFORT CURVE STRIP VI SCH ×2 (16:58→22:00)
[2022-09-14 20:42] LABS: Urine Bacteria NONE SEEN /hpf (None Seen); Urine Blood Negative /uL (Negative); Urine Hyaline Cast FEW /lpf (0 - 2); Urine Specific Gravity 1.007 (1.001-1.035); Urine WBC <1 /hpf (0 - 5)
[2022-09-14 21:32] LABS: Sodium Urine 40 mmol/L (40-220)
[2022-09-14 21:37] LABS: Creatinine, Urine 24 mg/dL (30.0-125.0)
[2022-09-14 22:00] VITALS: BP 140/58
[2022-09-14] MEDS: PIPERACILLIN-TAZOB 3.375GM 100 ML IV SCH (22:00)
[2022-09-14] MEDS ORDERED: TRIA50CA43 PO (23:46)
[2022-09-14] MEDS ORDERED: AMIO200T33 PO (23:46)
[2022-09-15] MEDS: SODIUM CHLORIDE 0.9% 1,000 ML IV SCH ×2 (01:15→11:14)
[2022-09-15 05:00] VITALS: BP 119/50
[2022-09-15 05:18] LABS: Basophils # (auto) 0 10 ^3/uL (0-0.2); Basophils % (auto) 0.6 % (0.0-2.0); Eosinophils # (auto) 0.2 10 ^3/uL (0-0.8); Eosinophils % (auto) 2.9 % (0.0-7.0); Hematocrit 34.8 % (36.0-46.0); Hemoglobin 11.9 g/dL (12.2-16.2); Lymphocytes # (auto) 0.9 10 ^3/uL (0.4-5.4); Lymphocytes % (auto) 15.2 % (10.0-50.0); Mean Corpuscular Hemoglobin 32.2 pg (28.0-32.0); Mean Corpuscular Hgb Conc. 34.2 g/dL (32.0-36.0); Mean Corpuscular Volume 94.3 fL (80.0-100.0); Monocytes # (auto) 0.7 10 ^3/uL (0-1.3); Monocytes % (auto) 12.6 % (0.0-12.0); Neutrophils # (auto) 3.9 10 ^3/uL (1.6-8.6); Neutrophils % (auto) 68.7 % (37.0-80.0); Red Blood Cells 3.69 10^6/uL (4.0-5.20); Red Cell Distribution Width 14.4 % (11.8-14.3); White Blood Cell 5.7 10^3/uL (4.4-10.8)
[2022-09-15 05:47] LABS: Calcium 9.4 mg/dL (8.5-10.1)
[2022-09-15 05:51] LABS: Albumin 3.2 g/dL (3.4-5.0); BUN/Creatinine Ratio 26.4 (10.0-20.0)
[2022-09-15] MEDS: InsuLIN REG 1unit/0.01ml Soln (100units/ml) SC SCH ×4 (06:29→21:11)
[2022-09-15] MEDS: ACCU-CHEK COMFORT CURVE STRIP VI SCH ×4 (06:30→21:29)
[2022-09-15 06:41] LABS: Bilirubin, Total 0.4 mg/dL (0.2-1.0); Total Protein 6.8 g/dL (6.4-8.2)
[2022-09-15] MEDS ORDERED: POTASSIUM CHL 20 Meq TABLET PO ONE ×2 (07:45→12:15)
[2022-09-15] MEDS: PANTOPRAZOLE 40 MG/10 ML VIAL INJ IV SCH (08:05)
[2022-09-15 09:00] VITALS: BP 132/54
[2022-09-15] MEDS ORDERED: ENOXAPARIN SOD 30 MG/0.3 ML SYRINGE SC SCH (10:00)
[2022-09-15] MEDS: PIPERACILLIN-TAZOB 3.375GM 100 ML IV SCH (11:10)
[2022-09-15 13:00] VITALS: BP 132/54
[2022-09-15] MEDS ORDERED: CHOLESTYRAMINE 4 GM POWDER PO ONE (16:15)
[2022-09-15] MEDS ORDERED: POTASSIUM EFFERVESENT TAB 25 MEQ PO ONE (16:30)
[2022-09-15] MEDS ORDERED: SODIUM CHL 3% 500 ML IV ONE (16:30)
[2022-09-15 16:53] VITALS: BP 107/54
[2022-09-15] MEDS: RIVAROXABAN 15 MG TAB PO SCH (18:22)
[2022-09-15] MEDS: CHOLESTYRAMINE 4 GM POWDER PO SCH (21:29)
[2022-09-15 22:00] VITALS: BP 123/56
[2022-09-16 04:54] VITALS: BP 153/82
[2022-09-16 06:27] LABS: Basophils # (auto) 0 10 ^3/uL (0-0.2); Basophils % (auto) 0.7 % (0.0-2.0); Eosinophils # (auto) 0.3 10 ^3/uL (0-0.8); Eosinophils % (auto) 3.6 % (0.0-7.0); Hematocrit 35.2 % (36.0-46.0); Hemoglobin 11.9 g/dL (12.2-16.2); Lymphocytes # (auto) 1.4 10 ^3/uL (0.4-5.4); Lymphocytes % (auto) 19.3 % (10.0-50.0); Mean Corpuscular Hemoglobin 32.2 pg (28.0-32.0); Mean Corpuscular Hgb Conc. 33.9 g/dL (32.0-36.0); Mean Corpuscular Volume 94.9 fL (80.0-100.0); Monocytes # (auto) 0.7 10 ^3/uL (0-1.3); Neutrophils # (auto) 4.6 10 ^3/uL (1.6-8.6); Neutrophils % (auto) 66.4 % (37.0-80.0); Nucleated Red Blood Cells % 0.1 %; Red Blood Cells 3.71 10^6/uL (4.0-5.20); Red Cell Distribution Width 14.8 % (11.8-14.3)
[2022-09-16] MEDS: ACCU-CHEK COMFORT CURVE STRIP VI SCH ×4 (06:44→22:23)
[2022-09-16] MEDS: InsuLIN REG 1unit/0.01ml Soln (100units/ml) SC SCH ×4 (06:44→22:27)
[2022-09-16 06:57] LABS: Potassium 3.5 mmol/L (3.5-5.1)
[2022-09-16 07:04] LABS: BUN/Creatinine Ratio 16.2 (10.0-20.0); Calcium 9.2 mg/dL (8.5-10.1)
[2022-09-16 09:00] VITALS: BP 118/53
[2022-09-16] MEDS: CHOLESTYRAMINE 4 GM POWDER PO SCH ×2 (10:28→22:23)
[2022-09-16] MEDS: PANTOPRAZOLE 40 MG/10 ML VIAL INJ IV SCH (10:33)
[2022-09-16] MEDS: SODIUM CHLORIDE 0.9% 1,000 ML IV SCH (12:21)
[2022-09-16 13:00] VITALS: BP 131/63
[2022-09-16 17:01] VITALS: BP 149/74
[2022-09-16] MEDS: RIVAROXABAN 15 MG TAB PO SCH (17:23)
[2022-09-16 22:00] VITALS: BP 139/62
[2022-09-17] MEDS: SODIUM CHLORIDE 0.9% 1,000 ML IV SCH ×2 (01:36→16:29)
[2022-09-17 05:00] VITALS: BP 167/83
[2022-09-17] MEDS: InsuLIN REG 1unit/0.01ml Soln (100units/ml) SC SCH ×4 (07:00→21:33)
[2022-09-17] MEDS: ACCU-CHEK COMFORT CURVE STRIP VI SCH ×4 (07:03→21:31)
[2022-09-17 09:00] VITALS: BP 167/88
[2022-09-17 09:49] VITALS: BP 144/70
[2022-09-17] MEDS: PANTOPRAZOLE 40 MG/10 ML VIAL INJ IV SCH (09:54)
[2022-09-17] MEDS ORDERED: NITROGLYCERIN 0.4 MG SL TAB SL PRN (10:30)
[2022-09-17] MEDS ORDERED: MORPHINE SULFATE INJ 2 MG/ml SYRG IV PRN (10:30)
[2022-09-17] MEDS ORDERED: METOPROLOL TARTRATE 25 MG TAB PO ONE (10:45)
[2022-09-17] MEDS: CHOLESTYRAMINE 4 GM POWDER PO SCH ×2 (11:55→22:10)
[2022-09-17 13:00] VITALS: BP 153/75
[2022-09-17 17:06] VITALS: BP 153/80
[2022-09-17] MEDS: RIVAROXABAN 15 MG TAB PO SCH (18:00)
[2022-09-17 22:00] VITALS: BP 153/75
[2022-09-17] MEDS: METOPROLOL SUCCINATE XL 50 MG TAB PO SCH (22:00)
[2022-09-18] VITALS (11 sets, daily range): BP systolic 129–185; BP diastolic 76–94
[2022-09-18] MEDS: SODIUM CHLORIDE 0.9% 1,000 ML IV SCH ×2 (04:16→19:12)
[2022-09-18] MEDS: InsuLIN REG 1unit/0.01ml Soln (100units/ml) SC SCH ×4 (06:21→22:06)
[2022-09-18] MEDS: ACCU-CHEK COMFORT CURVE STRIP VI SCH ×4 (06:21→22:05)
[2022-09-18] MEDS: METOPROLOL SUCCINATE XL 50 MG TAB PO SCH ×2 (09:02→22:00)
[2022-09-18 10:49] LABS: INR 1.11 (0.9-1.15)
[2022-09-18] MEDS: CHOLESTYRAMINE 4 GM POWDER PO SCH ×2 (11:00→22:53)
[2022-09-18] MEDS ORDERED: LIDOCAINE 2%HCL (LOCAL ANESTH.) INJ 20ML MDV ONE (12:52)
[2022-09-18] MEDS ORDERED: VANCOMYCIN HCL 1000 MG VL ONE (12:54)
[2022-09-18] MEDS ORDERED: fentaNYL CITRATE 100 MCG/2 ML VL ONE (12:54)
[2022-09-18] MEDS ORDERED: MIDAZOLAM HCL 2MG/2ML 2ml VIAL (1mg/ml) ONE (12:54)
[2022-09-18] MEDS ORDERED: VANCOMYCIN 1GM/250ML 250 ML IV ONE (12:55)
[2022-09-18] MEDS ORDERED: FUROSEMIDE 20 MG/2 ML VIAL ONE (14:09)
[2022-09-18] MEDS: ceFAZolin 1GM/50ML 50 ML IV SCH ×2 (16:30→22:05)
[2022-09-18] MEDS: RIVAROXABAN 15 MG TAB PO SCH (18:00)
[2022-09-19] MEDS ORDERED: VANCOMYCIN 1GM/250ML 250 ML IV ONE ×2 (01:14→02:00)
[2022-09-19] MEDS ORDERED: VANCOMYCIN 1GM/250ML 250 ML IV SCH (02:00)
[2022-09-19 05:00] VITALS: BP 126/83
[2022-09-19] MEDS: ceFAZolin 1GM/50ML 50 ML IV SCH (06:52)
[2022-09-19] MEDS: SODIUM CHLORIDE 0.9% 1,000 ML IV SCH (06:53)
[2022-09-19] MEDS: InsuLIN REG 1unit/0.01ml Soln (100units/ml) SC SCH ×2 (06:53→11:55)
[2022-09-19] MEDS: ACCU-CHEK COMFORT CURVE STRIP VI SCH ×2 (06:53→11:43)
[2022-09-19 09:17] VITALS: BP 138/77
[2022-09-19] MEDS: METOPROLOL SUCCINATE XL 50 MG TAB PO SCH (09:36)
[2022-09-19] MEDS: CHOLESTYRAMINE 4 GM POWDER PO SCH (09:36)
[2022-09-19 13:00] VITALS: BP 122/73
[2022-09-19 14:37] VITALS: BP 138/77
[2022-10-12] MEDS ORDERED: AZIT-43 PO (09:47)
== END 2022-09-19 15:38 | disposition home or self-care (01) | DRG 242 ==
LOC: EDBD → ER 10:52 → TELE 15:18 → TELE-WESTW 21:28
PROVIDERS: ADMIT Nurse Practitioner Family; ATTEND Internal Medicine Cardiovascular Disease
PROC: 5A2204Z Restoration of Cardiac Rhythm, Single (ICD-10-PCS; 2022-09-10)
PROC: B5191ZZ Fluoroscopy of Inferior Vena Cava using Low Osmolar Contrast (ICD-10-PCS; 2022-09-10)
PROC: 02H63JZ Insertion of Pacemaker Lead into Right Atrium, Percutaneous Approach (ICD-10-PCS; 2022-09-18)
PROC: 02HK3JZ Insertion of Pacemaker Lead into Right Ventricle, Percutaneous Approach (ICD-10-PCS; 2022-09-18)
PROC: 0JH606Z Insertion of Pacemaker, Dual Chamber into Chest Subcutaneous Tissue and Fascia, Open Approach (ICD-10-PCS; principal; 2022-09-18 13:00)
DX: I49.5 Sick sinus syndrome (principal); K85.90 Acute pancreatitis without necrosis or infection, unspecified; D68.59 Other primary thrombophilia; N17.9 Acute kidney failure, unspecified; E87.1 Hypo-osmolality and hyponatremia; E87.20 Acidosis, unspecified; E86.0 Dehydration; E78.5 Hyperlipidemia, unspecified; I10 Essential (primary) hypertension; I48.91 Unspecified atrial fibrillation; Z20.822 Contact with and (suspected) exposure to COVID-19; J44.9 Chronic obstructive pulmonary disease, unspecified; N20.0 Calculus of kidney; D63.8 Anemia in other chronic diseases classified elsewhere; E87.6 Hypokalemia; E11.9 Type 2 diabetes mellitus without complications; I95.9 Hypotension, unspecified; R19.7 Diarrhea, unspecified; R74.8 Abnormal levels of other serum enzymes; R79.89 Other specified abnormal findings of blood chemistry; Z98.51 Tubal ligation status
CPT/HCPCS: 33208; 36415; 71045; 74176; 80048; 80053; 81001; 82270; 82570; 82962; 83036; 83605; 83690; 83735; 83880; 83930; 83935; 84300; 84484; 85025; 85048; 85610; 87040; 87045; 87177; 87426; 87427; 87493; 87804; 93005; 96360; 96361; 97116; 97163; 97530; 99152; 99153; C1785; C1894; C9113; G0378; J0690; J1815; J2250; J2543

== ENCOUNTER 2022-09-20 13:16 | Inpatient (IN) | payer MEDICARE, OTHER ==
[~2022-09-20] VITALS: Ht 157.5 cm; Wt 54.0 kg
[~2022-09-20 13:16] MED LIST changes: +AMIO200T33 PO; -ASCO10003 PO; -CEPH-509 PO; -CHOL1CAP47 PO; -DEX4T PO; -IRBE300T43 PO; +TRIA50CA43 PO
[2022-09-20 14:02] LABS: Basophils # (auto) 0.1 10 ^3/uL (0-0.2); Basophils % (auto) 0.5 % (0.0-2.0); Eosinophils # (auto) 0 10 ^3/uL (0-0.8); Hematocrit 34.2 % (36.0-46.0); Hemoglobin 11.2 g/dL (12.2-16.2); Lymphocytes # (auto) 0.6 10 ^3/uL (0.4-5.4); Lymphocytes % (auto) 4.8 % (10.0-50.0); Mean Corpuscular Hemoglobin 31.8 pg (28.0-32.0); Mean Corpuscular Hgb Conc. 32.9 g/dL (32.0-36.0); Mean Corpuscular Volume 96.8 fL (80.0-100.0); Monocytes # (auto) 0.8 10 ^3/uL (0-1.3); Monocytes % (auto) 7.2 % (0.0-12.0); Neutrophils # (auto) 10.3 10 ^3/uL (1.6-8.6); Neutrophils % (auto) 87.5 % (37.0-80.0); Red Blood Cells 3.54 10^6/uL (4.0-5.20); Red Cell Distribution Width 14.8 % (11.8-14.3); White Blood Cell 11.8 10^3/uL (4.4-10.8)
[2022-09-20 14:25] LABS: INR 1.18 (0.9-1.15); Partial Thromboplastin Time 31.9 sec (24.6-33.4)
[2022-09-20 14:28] LABS: Albumin 2.9 g/dL (3.4-5.0); BUN/Creatinine Ratio 15.6 (10.0-20.0); Calcium 8.9 mg/dL (8.5-10.1); Potassium 3.9 mmol/L (3.5-5.1)
[2022-09-20 14:38] LABS: Bilirubin, Total 0.2 mg/dL (0.2-1.0); Total Protein 6.6 g/dL (6.4-8.2)
[2022-09-20] MEDS ORDERED: NITROGLYCERIN 0.4 MG SL TAB SL PRN (14:45)
[2022-09-20] MEDS ORDERED: ALBUTEROL SULF HFA 90MCG INH 200DOSE IN PRN (14:45)
[2022-09-20] MEDS ORDERED: MORPHINE SULFATE INJ 2 MG/ml SYRG IV PRN (14:45)
[2022-09-20] MEDS ORDERED: DEXTROSE (50%) 50ML SYRG IV PRN (15:00)
[2022-09-20] MEDS ORDERED: ALBUTEROL SULF 2.5 MG/0.5ML(0.5%) NEB SOLN NEB PRN (15:00)
[2022-09-20] MEDS: FUROSEMIDE 40 MG/4 ML VIAL IV SCH (15:43)
[2022-09-20] MEDS: POTASSIUM CHL 20 Meq TABLET PO SCH (15:43)
[2022-09-20] MEDS ORDERED: IOHEXOL 350 MG/ML 100ML IJ ONE (15:52)
[2022-09-20 16:14] VITALS: BP 102/54
[2022-09-20] MEDS: metFORMIN HYDROCHLORIDE 500 MG TAB PO SCH (17:38)
[2022-09-20] MEDS: ACCU-CHEK COMFORT CURVE STRIP VI SCH ×2 (18:05→22:23)
[2022-09-20] MEDS: InsuLIN REG 1unit/0.01ml Soln (100units/ml) SC SCH ×2 (18:05→22:27)
[2022-09-20 19:39] LABS: Urine Bacteria NONE SEEN /hpf (None Seen); Urine Blood TRACE /uL (Negative); Urine Hyaline Cast FEW /lpf (0 - 2); Urine Specific Gravity 1.011 (1.001-1.035); Urine WBC <1 /hpf (0 - 5)
[2022-09-20] MEDS: ACETAMINOPHEN 650 MG PO SCH (22:00)
[2022-09-20] MEDS: DONEPEZIL HYDROCHLORIDE 5 MG TAB PO SCH (22:22)
[2022-09-20] MEDS: METOPROLOL SUCCINATE XL 50 MG TAB PO SCH (22:22)
[2022-09-20 22:31] VITALS: BP 111/60
[2022-09-21] MEDS: ACETAMINOPHEN 650 MG PO SCH ×3 (05:15→21:18)
[2022-09-21] MEDS: EMPAGLIFLOZIN 10 MG TAB PO SCH (06:21)
[2022-09-21] MEDS: ACCU-CHEK COMFORT CURVE STRIP VI SCH ×4 (06:26→21:18)
[2022-09-21] MEDS: InsuLIN REG 1unit/0.01ml Soln (100units/ml) SC SCH ×4 (06:26→21:50)
[2022-09-21 08:00] VITALS: BP 106/59
[2022-09-21] MEDS: FUROSEMIDE 40 MG/4 ML VIAL IV SCH (10:19)
[2022-09-21] MEDS: ZINC SULFATE 220mg CAP or TAB PO SCH (10:20)
[2022-09-21] MEDS: AMIODARONE HCL 200 MG TAB PO SCH (10:20)
[2022-09-21] MEDS: POTASSIUM CHL 20 Meq TABLET PO SCH (10:21)
[2022-09-21] MEDS: METOPROLOL SUCCINATE XL 50 MG TAB PO SCH ×2 (10:21→21:49)
[2022-09-21 12:00] VITALS: BP 115/69
[2022-09-21] MEDS: PIPERACILLIN-TAZOB 3.375GM 100 ML IV SCH ×2 (12:02→21:14)
[2022-09-21 16:00] VITALS: BP 102/75
[2022-09-21] MEDS: DONEPEZIL HYDROCHLORIDE 5 MG TAB PO SCH (21:17)
[2022-09-21 22:00] VITALS: BP 114/70
[2022-09-22] MEDS: PIPERACILLIN-TAZOB 3.375GM 100 ML IV SCH ×3 (03:53→19:55)
[2022-09-22 05:00] VITALS: BP 123/69
[2022-09-22] MEDS: ACETAMINOPHEN 650 MG PO SCH ×3 (06:00→22:00)
[2022-09-22] MEDS: ACCU-CHEK COMFORT CURVE STRIP VI SCH ×4 (06:08→22:14)
[2022-09-22] MEDS: EMPAGLIFLOZIN 10 MG TAB PO SCH (06:08)
[2022-09-22] MEDS: InsuLIN REG 1unit/0.01ml Soln (100units/ml) SC SCH ×5 (06:08→22:13)
[2022-09-22 08:00] VITALS: BP 110/51
[2022-09-22] MEDS: FUROSEMIDE 40 MG/4 ML VIAL IV SCH (09:23)
[2022-09-22] MEDS: AMIODARONE HCL 200 MG TAB PO SCH (09:23)
[2022-09-22] MEDS: POTASSIUM CHL 20 Meq TABLET PO SCH (09:23)
[2022-09-22] MEDS: ZINC SULFATE 220mg CAP or TAB PO SCH (09:23)
[2022-09-22] MEDS: METOPROLOL SUCCINATE XL 50 MG TAB PO SCH ×2 (09:24→22:09)
[2022-09-22 12:00] VITALS: BP 101/56
[2022-09-22 16:00] VITALS: BP 112/60
[2022-09-22] MEDS: metFORMIN HYDROCHLORIDE 500 MG TAB PO SCH (18:00)
[2022-09-22 22:00] VITALS: BP 103/57
[2022-09-22] MEDS: DONEPEZIL HYDROCHLORIDE 5 MG TAB PO SCH (22:07)
[2022-09-23] MEDS: PIPERACILLIN-TAZOB 3.375GM 100 ML IV SCH ×3 (03:31→20:12)
[2022-09-23 05:00] VITALS: BP 121/69
[2022-09-23] MEDS: ACETAMINOPHEN 650 MG PO SCH ×3 (05:23→21:50)
[2022-09-23] MEDS: EMPAGLIFLOZIN 10 MG TAB PO SCH (06:24)
[2022-09-23] MEDS: InsuLIN REG 1unit/0.01ml Soln (100units/ml) SC SCH ×4 (06:25→21:53)
[2022-09-23] MEDS: ACCU-CHEK COMFORT CURVE STRIP VI SCH ×4 (06:25→21:50)
[2022-09-23] MEDS: metFORMIN HYDROCHLORIDE 500 MG TAB PO SCH ×2 (08:00→17:42)
[2022-09-23 09:00] VITALS: BP 91/50
[2022-09-23] MEDS: AMIODARONE HCL 200 MG TAB PO SCH (09:17)
[2022-09-23] MEDS: FUROSEMIDE 40 MG/4 ML VIAL IV SCH (09:18)
[2022-09-23] MEDS: ZINC SULFATE 220mg CAP or TAB PO SCH (09:18)
[2022-09-23] MEDS: POTASSIUM CHL 20 Meq TABLET PO SCH (09:18)
[2022-09-23] MEDS: METOPROLOL SUCCINATE XL 50 MG TAB PO SCH ×2 (09:19→21:49)
[2022-09-23 13:00] VITALS: BP 107/67
[2022-09-23 13:17] LABS: Basophils # (auto) 0.1 10 ^3/uL (0-0.2); Basophils % (auto) 0.7 % (0.0-2.0); Eosinophils # (auto) 0.2 10 ^3/uL (0-0.8); Eosinophils % (auto) 2.6 % (0.0-7.0); Hemoglobin 11.6 g/dL (12.2-16.2); Lymphocytes # (auto) 0.9 10 ^3/uL (0.4-5.4); Lymphocytes % (auto) 9.5 % (10.0-50.0); Mean Corpuscular Hemoglobin 31.9 pg (28.0-32.0); Mean Corpuscular Hgb Conc. 33.3 g/dL (32.0-36.0); Mean Corpuscular Volume 95.9 fL (80.0-100.0); Monocytes # (auto) 0.8 10 ^3/uL (0-1.3); Monocytes % (auto) 9.1 % (0.0-12.0); Neutrophils % (auto) 78.1 % (37.0-80.0); Nucleated Red Blood Cells % 0.2 %; Red Blood Cells 3.64 10^6/uL (4.0-5.20); Red Cell Distribution Width 14.6 % (11.8-14.3)
[2022-09-23 13:26] LABS: Albumin 3.1 g/dL (3.4-5.0); Calcium 8.9 mg/dL (8.5-10.1); Potassium 3.3 mmol/L (3.5-5.1)
[2022-09-23 13:29] LABS: BUN/Creatinine Ratio 17.2 (10.0-20.0); Bilirubin, Total 0.4 mg/dL (0.2-1.0)
[2022-09-23 13:41] VITALS: BP 104/53
[2022-09-23] MEDS ORDERED: POTASSIUM EFFERVESENT TAB 25 MEQ PO ONE (14:45)
[2022-09-23 17:00] VITALS: BP 115/34
[2022-09-23] MEDS ORDERED: FUROSEMIDE 40 MG/4 ML VIAL IV ONE (19:15)
[2022-09-23] MEDS: DONEPEZIL HYDROCHLORIDE 5 MG TAB PO SCH (21:49)
[2022-09-23 22:00] VITALS: BP_SYST 121; BP_SYST 123; BP_DIAS 67; BP_DIAS 72
[2022-09-24] MEDS: PIPERACILLIN-TAZOB 3.375GM 100 ML IV SCH ×3 (03:31→21:32)
[2022-09-24 05:00] VITALS: BP 123/64
[2022-09-24] MEDS: ACCU-CHEK COMFORT CURVE STRIP VI SCH ×4 (06:08→21:38)
[2022-09-24] MEDS: EMPAGLIFLOZIN 10 MG TAB PO SCH (06:08)
[2022-09-24] MEDS: InsuLIN REG 1unit/0.01ml Soln (100units/ml) SC SCH ×4 (06:14→21:43)
[2022-09-24 06:16] LABS: Potassium 3.2 mmol/L (3.5-5.1)
[2022-09-24 06:20] LABS: BUN/Creatinine Ratio 16.3 (10.0-20.0)
[2022-09-24 09:00] VITALS: BP 109/73
[2022-09-24] MEDS: metFORMIN HYDROCHLORIDE 500 MG TAB PO SCH ×2 (09:37→17:41)
[2022-09-24] MEDS: ZINC SULFATE 220mg CAP or TAB PO SCH (09:37)
[2022-09-24] MEDS: METOPROLOL SUCCINATE XL 50 MG TAB PO SCH ×2 (09:37→21:34)
[2022-09-24] MEDS: AMIODARONE HCL 200 MG TAB PO SCH (09:37)
[2022-09-24 12:36] VITALS: BP 130/78
[2022-09-24 16:33] VITALS: BP 131/71
[2022-09-24 20:00] VITALS: BP 121/67
[2022-09-24] MEDS: DONEPEZIL HYDROCHLORIDE 5 MG TAB PO SCH (21:35)
[2022-09-25] MEDS: PIPERACILLIN-TAZOB 3.375GM 100 ML IV SCH (04:44)
[2022-09-25 05:00] VITALS: BP 122/71
[2022-09-25 05:56] LABS: Calcium 9.2 mg/dL (8.5-10.1); Potassium 3.4 mmol/L (3.5-5.1)
[2022-09-25 05:58] LABS: BUN/Creatinine Ratio 16.9 (10.0-20.0)
[2022-09-25] MEDS: EMPAGLIFLOZIN 10 MG TAB PO SCH (06:10)
[2022-09-25] MEDS: ACCU-CHEK COMFORT CURVE STRIP VI SCH ×4 (06:10→21:56)
[2022-09-25] MEDS: InsuLIN REG 1unit/0.01ml Soln (100units/ml) SC SCH ×4 (06:11→22:04)
[2022-09-25] MEDS: AMIODARONE HCL 200 MG TAB PO SCH (08:37)
[2022-09-25] MEDS: ZINC SULFATE 220mg CAP or TAB PO SCH (08:37)
[2022-09-25] MEDS: metFORMIN HYDROCHLORIDE 500 MG TAB PO SCH (08:38)
[2022-09-25] MEDS: METOPROLOL SUCCINATE XL 50 MG TAB PO SCH ×2 (08:38→21:53)
[2022-09-25 09:00] VITALS: BP 126/66
[2022-09-25] MEDS ORDERED: POTASSIUM EFFERVESENT TAB 25 MEQ PO ONE (09:15)
[2022-09-25] MEDS: CEPHALEXIN 250 MG CAP PO SCH ×3 (12:25→21:58)
[2022-09-25 13:00] VITALS: BP 120/61
[2022-09-25 17:00] VITALS: BP 135/60
[2022-09-25 20:00] VITALS: BP 141/68
[2022-09-25] MEDS: DONEPEZIL HYDROCHLORIDE 5 MG TAB PO SCH (21:51)
[2022-09-25 23:00] VITALS: BP 141/68
[2022-09-26 04:30] VITALS: BP 125/71
[2022-09-26] MEDS: CEPHALEXIN 250 MG CAP PO SCH ×4 (06:17→22:43)
[2022-09-26] MEDS: EMPAGLIFLOZIN 10 MG TAB PO SCH (06:24)
[2022-09-26] MEDS: InsuLIN REG 1unit/0.01ml Soln (100units/ml) SC SCH ×4 (06:26→22:57)
[2022-09-26] MEDS: ACCU-CHEK COMFORT CURVE STRIP VI SCH ×4 (06:28→22:50)
[2022-09-26] MEDS: ZINC SULFATE 220mg CAP or TAB PO SCH (08:49)
[2022-09-26] MEDS: AMIODARONE HCL 200 MG TAB PO SCH (08:49)
[2022-09-26] MEDS: METOPROLOL SUCCINATE XL 50 MG TAB PO SCH ×2 (08:50→22:44)
[2022-09-26 09:00] VITALS: BP 104/62
[2022-09-26 13:05] VITALS: BP 122/70
[2022-09-26 17:00] VITALS: BP 146/89
[2022-09-26 20:00] VITALS: BP 132/60
[2022-09-26 22:10] VITALS: BP 132/60
[2022-09-26] MEDS: DONEPEZIL HYDROCHLORIDE 5 MG TAB PO SCH (22:42)
[2022-09-27 05:02] VITALS: BP 143/69
[2022-09-27] MEDS: CEPHALEXIN 250 MG CAP PO SCH ×4 (05:55→21:52)
[2022-09-27] MEDS: InsuLIN REG 1unit/0.01ml Soln (100units/ml) SC SCH ×4 (06:00→21:56)
[2022-09-27] MEDS: ACCU-CHEK COMFORT CURVE STRIP VI SCH ×4 (06:00→21:56)
[2022-09-27] MEDS: EMPAGLIFLOZIN 10 MG TAB PO SCH (06:04)
[2022-09-27] MEDS: METOPROLOL SUCCINATE XL 50 MG TAB PO SCH ×2 (10:00→21:53)
[2022-09-27 13:00] VITALS: BP_SYST 132; BP_SYST 139; BP_DIAS 73; BP_DIAS 77
[2022-09-27] MEDS: AMIODARONE HCL 200 MG TAB PO SCH (14:09)
[2022-09-27] MEDS: ZINC SULFATE 220mg CAP or TAB PO SCH (14:09)
[2022-09-27 17:00] VITALS: BP 139/61
[2022-09-27] MEDS: ATORVASTATIN 20 MG TAB PO SCH (21:52)
[2022-09-27] MEDS: DONEPEZIL HYDROCHLORIDE 5 MG TAB PO SCH (21:52)
[2022-09-27 22:00] VITALS: BP 126/65
[2022-09-28] VITALS (7 sets, daily range): BP systolic 101–137; BP diastolic 53–84
[2022-09-28] MEDS: EMPAGLIFLOZIN 10 MG TAB PO SCH (05:55)
[2022-09-28] MEDS: CEPHALEXIN 250 MG CAP PO SCH ×4 (05:55→22:33)
[2022-09-28] MEDS: InsuLIN REG 1unit/0.01ml Soln (100units/ml) SC SCH ×4 (06:04→22:41)
[2022-09-28] MEDS: ACCU-CHEK COMFORT CURVE STRIP VI SCH ×4 (06:05→22:34)
[2022-09-28] MEDS: AMIODARONE HCL 200 MG TAB PO SCH (11:12)
[2022-09-28] MEDS: ZINC SULFATE 220mg CAP or TAB PO SCH (11:12)
[2022-09-28] MEDS: METOPROLOL SUCCINATE XL 50 MG TAB PO SCH ×2 (11:14→22:32)
[2022-09-28] MEDS ORDERED: VANCOMYCIN HCL 1000 MG VL ONE (16:12)
[2022-09-28] MEDS ORDERED: MIDAZOLAM HCL 2MG/2ML 2ml VIAL (1mg/ml) ONE (16:12)
[2022-09-28] MEDS ORDERED: fentaNYL CITRATE 100 MCG/2 ML VL ONE (16:12)
[2022-09-28] MEDS ORDERED: VANCOMYCIN 1GM/250ML 250 ML IV ONE (16:17)
[2022-09-28] MEDS ORDERED: ACETAMINOPHEN 325 MG TAB PO PRN (16:30)
[2022-09-28] MEDS ORDERED: APIX5TAB PO (16:39)
[2022-09-28] MEDS ORDERED: ALBUAER3 IN (16:39)
[2022-09-28] MEDS ORDERED: METO25TA36 PO (16:39)
[2022-09-28] MEDS ORDERED: ZINC220C10 PO (16:39)
[2022-09-28] MEDS ORDERED: VANCOMYCIN 1GM/250ML 250 ML IV SCH (22:00)
[2022-09-28] MEDS: DONEPEZIL HYDROCHLORIDE 5 MG TAB PO SCH (22:30)
[2022-09-28] MEDS: ATORVASTATIN 20 MG TAB PO SCH (22:33)
[2022-09-29 05:00] VITALS: BP 125/67
[2022-09-29] MEDS: EMPAGLIFLOZIN 10 MG TAB PO SCH (06:58)
[2022-09-29] MEDS: InsuLIN REG 1unit/0.01ml Soln (100units/ml) SC SCH ×4 (06:58→23:30)
[2022-09-29] MEDS: ACCU-CHEK COMFORT CURVE STRIP VI SCH ×4 (06:58→23:28)
[2022-09-29] MEDS: CEPHALEXIN 250 MG CAP PO SCH ×4 (06:58→22:29)
[2022-09-29 07:04] LABS: Potassium 3.9 mmol/L (3.5-5.1)
[2022-09-29 07:10] LABS: Albumin 2.7 g/dL (3.4-5.0); Calcium 9.1 mg/dL (8.5-10.1)
[2022-09-29 07:12] LABS: Bilirubin, Total 0.3 mg/dL (0.2-1.0); Total Protein 6.5 g/dL (6.4-8.2)
[2022-09-29 08:39] VITALS: BP 134/62
[2022-09-29] MEDS: ZINC SULFATE 220mg CAP or TAB PO SCH (09:59)
[2022-09-29] MEDS: METOPROLOL SUCCINATE XL 50 MG TAB PO SCH ×2 (10:00→22:24)
[2022-09-29] MEDS: AMIODARONE HCL 200 MG TAB PO SCH (10:00)
[2022-09-29 13:00] VITALS: BP 138/71
[2022-09-29 17:00] VITALS: BP_SYST 82
[2022-09-29 22:00] VITALS: BP 146/72
[2022-09-29] MEDS: DONEPEZIL HYDROCHLORIDE 5 MG TAB PO SCH (22:23)
[2022-09-29] MEDS: ATORVASTATIN 20 MG TAB PO SCH (22:29)
[2022-09-30] VITALS (7 sets, daily range): BP systolic 121–150; BP diastolic 61–86
[2022-09-30] MEDS: ACCU-CHEK COMFORT CURVE STRIP VI SCH ×4 (06:43→22:10)
[2022-09-30] MEDS: InsuLIN REG 1unit/0.01ml Soln (100units/ml) SC SCH ×4 (06:44→22:08)
[2022-09-30] MEDS: EMPAGLIFLOZIN 10 MG TAB PO SCH (06:50)
[2022-09-30] MEDS: CEPHALEXIN 250 MG CAP PO SCH ×4 (06:50→21:55)
[2022-09-30] MEDS: AMIODARONE HCL 200 MG TAB PO SCH (08:35)
[2022-09-30] MEDS: ZINC SULFATE 220mg CAP or TAB PO SCH (08:36)
[2022-09-30] MEDS: METOPROLOL SUCCINATE XL 50 MG TAB PO SCH ×2 (08:36→21:58)
[2022-09-30] MEDS: DONEPEZIL HYDROCHLORIDE 5 MG TAB PO SCH (21:54)
[2022-09-30] MEDS: ATORVASTATIN 20 MG TAB PO SCH (21:56)
[2022-10-01] MEDS: EMPAGLIFLOZIN 10 MG TAB PO SCH (04:53)
[2022-10-01] MEDS: ACCU-CHEK COMFORT CURVE STRIP VI SCH ×4 (04:54→21:45)
[2022-10-01] MEDS: InsuLIN REG 1unit/0.01ml Soln (100units/ml) SC SCH ×4 (04:54→21:48)
[2022-10-01] MEDS: CEPHALEXIN 250 MG CAP PO SCH ×4 (04:57→21:44)
[2022-10-01 05:00] VITALS: BP 136/78
[2022-10-01 09:00] VITALS: BP 136/67
[2022-10-01] MEDS: ZINC SULFATE 220mg CAP or TAB PO SCH (09:09)
[2022-10-01] MEDS: AMIODARONE HCL 200 MG TAB PO SCH (09:09)
[2022-10-01] MEDS: METOPROLOL SUCCINATE XL 50 MG TAB PO SCH ×2 (09:09→21:45)
[2022-10-01 13:00] VITALS: BP 150/81
[2022-10-01 17:00] VITALS: BP 122/83
[2022-10-01] MEDS: DONEPEZIL HYDROCHLORIDE 5 MG TAB PO SCH (21:43)
[2022-10-01] MEDS: ATORVASTATIN 20 MG TAB PO SCH (21:44)
[2022-10-01 22:00] VITALS: BP 142/62
[2022-10-02 05:00] VITALS: BP 140/64
[2022-10-02] MEDS: InsuLIN REG 1unit/0.01ml Soln (100units/ml) SC SCH ×3 (05:56→17:00)
[2022-10-02] MEDS: CEPHALEXIN 250 MG CAP PO SCH ×2 (06:01→11:55)
[2022-10-02] MEDS: ACCU-CHEK COMFORT CURVE STRIP VI SCH ×3 (06:02→17:00)
[2022-10-02] MEDS: EMPAGLIFLOZIN 10 MG TAB PO SCH (06:02)
[2022-10-02 08:00] VITALS: BP 150/70
[2022-10-02 09:00] VITALS: BP 150/70
[2022-10-02] MEDS: ZINC SULFATE 220mg CAP or TAB PO SCH (10:11)
[2022-10-02] MEDS: AMIODARONE HCL 200 MG TAB PO SCH (10:11)
[2022-10-02] MEDS: METOPROLOL SUCCINATE XL 50 MG TAB PO SCH (10:12)
[2022-10-02 13:00] VITALS: BP 131/75
[2022-10-02 15:47] VITALS: BP 150/70
[2022-10-02 16:52] VITALS: BP 142/78
[2022-10-12] MEDS ORDERED: AZIT-43 PO (09:47)
== END 2022-10-02 18:21 | disposition home health service (06) | DRG 260 ==
LOC: EDUNIT# 13:16 → EDBD 13:16 → ER 13:16 → TELE 14:49 → TELE-CENTR 21:46
PROVIDERS: ADMIT Internal Medicine Cardiovascular Disease; ATTEND Internal Medicine Cardiovascular Disease
PROC: 02WA3MZ Revision of Cardiac Lead in Heart, Percutaneous Approach (ICD-10-PCS; principal; 2022-09-28)
DX: I49.5 Sick sinus syndrome (principal); I21.4 Non-ST elevation (NSTEMI) myocardial infarction; J96.91 Respiratory failure, unspecified with hypoxia; D68.59 Other primary thrombophilia; I48.91 Unspecified atrial fibrillation; I11.0 Hypertensive heart disease with heart failure; E11.9 Type 2 diabetes mellitus without complications; E03.9 Hypothyroidism, unspecified; I50.9 Heart failure, unspecified; J44.9 Chronic obstructive pulmonary disease, unspecified; E78.5 Hyperlipidemia, unspecified; D72.829 Elevated white blood cell count, unspecified; Z83.3 Family history of diabetes mellitus; Z82.49 Family history of ischemic heart disease and other diseases of the circulatory system
CPT/HCPCS: 36415; 36600; 71045; 71275; 80048; 80053; 81001; 82805; 82962; 83605; 83880; 84484; 85025; 85379; 85610; 85730; 87040; 93005; 93306; 96374; 97110; 97116; 97163; 97530; G0378; J1815; J2250; J2543

== ENCOUNTER 2022-10-09 10:34 | Inpatient (IN) | payer MEDICARE, OTHER ==
[~2022-10-09] VITALS: Ht 157.5 cm; Wt 59.0 kg
[~2022-10-09 10:34] MED LIST changes: -ACET-1080 PO; -METO-6 PO; +METO25TA36 PO; +ZINC220C10 PO; -ZINC220T6 PO
[2022-10-09] MEDS ORDERED: methylPREDNISolone SOD SUCC 125 MG/2 ML VL IV ONE (11:15)
[2022-10-09] MEDS ORDERED: ALBUTEROL SULF 2.5 MG/0.5ML(0.5%) NEB SOLN HHN ONE (11:30)
[2022-10-09] MEDS ORDERED: IPRATROPIUM BROM 0.5 MG/2.5ML INH SOL HHN ONE (11:30)
[2022-10-09 12:15] LABS: Basophils # (auto) 0.2 10 ^3/uL (0-0.2); Basophils % (auto) 1.1 % (0.0-2.0); Eosinophils # (auto) 0 10 ^3/uL (0-0.8); Eosinophils % (auto) 0.2 % (0.0-7.0); Hematocrit 40.5 % (36.0-46.0); Hemoglobin 13.3 g/dL (12.2-16.2); Lymphocytes # (auto) 0.6 10 ^3/uL (0.4-5.4); Lymphocytes % (auto) 3.8 % (10.0-50.0); Mean Corpuscular Hemoglobin 31.3 pg (28.0-32.0); Mean Corpuscular Hgb Conc. 32.9 g/dL (32.0-36.0); Mean Corpuscular Volume 95.1 fL (80.0-100.0); Monocytes % (auto) 5.8 % (0.0-12.0); Neutrophils # (auto) 15.1 10 ^3/uL (1.6-8.6); Neutrophils % (auto) 89.1 % (37.0-80.0); Red Blood Cells 4.26 10^6/uL (4.0-5.20); Red Cell Distribution Width 14.6 % (11.8-14.3)
[2022-10-09 13:35] LABS: Urine Bacteria FEW /hpf (None Seen); Urine Blood Negative /uL (Negative); Urine Specific Gravity 1.018 (1.001-1.035); Urine WBC 2 /hpf (0 - 5)
[2022-10-09 13:41] LABS: Potassium 4.8 mmol/L (3.5-5.1)
[2022-10-09 13:47] LABS: Albumin 3.9 g/dL (3.4-5.0); BUN/Creatinine Ratio 20.5 (10.0-20.0); Bilirubin, Total 0.4 mg/dL (0.2-1.0); Calcium 10.3 mg/dL (8.5-10.1); Magnesium 1.9 mg/dL (1.6-2.6); Total Protein 8.7 g/dL (6.4-8.2)
[2022-10-09] MEDS ORDERED: NITROGLYCERIN 0.4 MG SL TAB SL PRN (15:15)
[2022-10-09] MEDS ORDERED: ALBUTEROL SULF 2.5 MG/0.5ML(0.5%) NEB SOLN NEB PRN (15:15)
[2022-10-09] MEDS ORDERED: ACETAMINOPHEN 325 MG TAB PO PRN (15:15)
[2022-10-09] MEDS ORDERED: MORPHINE SULFATE INJ 2 MG/ml SYRG IV PRN (15:15)
[2022-10-09] MEDS ORDERED: DEXTROSE (50%) 50ML SYRG IV PRN (15:30)
[2022-10-09] MEDS ORDERED: cefTRIAXone 1GM/50ML D5W 50 ML IV ONE (15:30)
[2022-10-09] MEDS ORDERED: AZITHROMYCIN 500MG/ 250ML 250 ML IV ONE (15:30)
[2022-10-09 15:34] VITALS: BP 119/67
[2022-10-09] MEDS ORDERED: SODIUM CHLORIDE 0.9% 1,000 ML IV ONE (16:15)
[2022-10-09] MEDS: SODIUM CHLORIDE 0.9% 1,000 ML IV SCH (16:30)
[2022-10-09] MEDS: ACCU-CHEK COMFORT CURVE STRIP VI SCH ×2 (16:59→22:14)
[2022-10-09] MEDS: InsuLIN REG 1unit/0.01ml Soln (100units/ml) SC SCH ×2 (17:00→23:22)
[2022-10-09] MEDS: IPRATROPIUM BROM 0.5 MG/2.5ML INH SOL NEB SCH ×2 (19:24→23:11)
[2022-10-09] MEDS: ALBUTEROL SULF 2.5 MG/0.5ML(0.5%) NEB SOLN NEB SCH ×2 (19:24→23:11)
[2022-10-09 22:00] VITALS: BP 100/54
[2022-10-09] MEDS: methylPREDNISolone SOD SUCC 40 MG/ML VL IV SCH (22:00)
[2022-10-09] MEDS: METOPROLOL SUCCINATE XL 50 MG TAB PO SCH (22:01)
[2022-10-09] MEDS: APIXABAN 5 MG TAB PO SCH (22:01)
[2022-10-09] MEDS: DONEPEZIL HYDROCHLORIDE 5 MG TAB PO SCH (22:01)
[2022-10-09] MEDS: ATORVASTATIN 20 MG TAB PO SCH (22:01)
[2022-10-10] MEDS: IPRATROPIUM BROM 0.5 MG/2.5ML INH SOL NEB SCH ×6 (02:18→22:19)
[2022-10-10] MEDS: ALBUTEROL SULF 2.5 MG/0.5ML(0.5%) NEB SOLN NEB SCH ×6 (02:19→22:19)
[2022-10-10] MEDS: SODIUM CHLORIDE 0.9% 1,000 ML IV SCH ×2 (04:35→10:22)
[2022-10-10 05:00] VITALS: BP 102/47
[2022-10-10 05:17] LABS: Basophils # (auto) 0 10 ^3/uL (0-0.2); Basophils % (auto) 0.1 % (0.0-2.0); Eosinophils # (auto) 0 10 ^3/uL (0-0.8); Hemoglobin 10.9 g/dL (12.2-16.2); Lymphocytes # (auto) 0.4 10 ^3/uL (0.4-5.4); Monocytes # (auto) 0.4 10 ^3/uL (0-1.3); White Blood Cell 16.9 10^3/uL (4.4-10.8)
[2022-10-10 05:26] LABS: Lymphocytes % (auto) 2.6 % (10.0-50.0); Mean Corpuscular Hemoglobin 31.1 pg (28.0-32.0); Mean Corpuscular Hgb Conc. 33.2 g/dL (32.0-36.0); Mean Corpuscular Volume 93.7 fL (80.0-100.0); Monocytes % (auto) 2.5 % (0.0-12.0); Neutrophils % (auto) 94.8 % (37.0-80.0); Red Blood Cells 3.52 10^6/uL (4.0-5.20); Red Cell Distribution Width 14.4 % (11.8-14.3)
[2022-10-10 05:31] LABS: Albumin 3.1 g/dL (3.4-5.0); Calcium 9.3 mg/dL (8.5-10.1); Potassium 4.6 mmol/L (3.5-5.1)
[2022-10-10 05:35] LABS: BUN/Creatinine Ratio 22.5 (10.0-20.0); Bilirubin, Total 0.3 mg/dL (0.2-1.0)
[2022-10-10] MEDS: ACCU-CHEK COMFORT CURVE STRIP VI SCH ×4 (06:30→22:08)
[2022-10-10] MEDS: InsuLIN REG 1unit/0.01ml Soln (100units/ml) SC SCH ×4 (06:32→22:13)
[2022-10-10 08:00] VITALS: BP 107/50
[2022-10-10] MEDS: cefTRIAXone 1GM/50ML D5W 50 ML IV SCH (09:34)
[2022-10-10] MEDS: APIXABAN 5 MG TAB PO SCH (09:35)
[2022-10-10] MEDS: METOPROLOL SUCCINATE XL 50 MG TAB PO SCH ×2 (09:35→22:08)
[2022-10-10] MEDS: AMIODARONE HCL 200 MG TAB PO SCH (09:35)
[2022-10-10] MEDS: methylPREDNISolone SOD SUCC 40 MG/ML VL IV SCH (09:42)
[2022-10-10] MEDS: APIXABAN 2.5 MG TAB PO SCH ×2 (10:00→22:07)
[2022-10-10] MEDS ORDERED: ZINC SULFATE 220mg CAP or TAB PO SCH (10:00)
[2022-10-10] MEDS ORDERED: NIFEdipine ER 30 MG TAB PO SCH (10:00)
[2022-10-10] MEDS ORDERED: AZITHROMYCIN 500MG/ 250ML 250 ML IV SCH (10:00)
[2022-10-10] MEDS ORDERED: TRIAMTERENE 37.5 MG PO SCH (10:00)
[2022-10-10] MEDS ORDERED: ENOXAPARIN SOD 30 MG/0.3 ML SYRINGE SC SCH (10:00)
[2022-10-10] MEDS ORDERED: ASPirin-EC 81 mg tab PO SCH (10:00)
[2022-10-10 12:00] VITALS: BP 110/62
[2022-10-10] MEDS: predniSONE 20 MG TAB PO SCH (12:10)
[2022-10-10 16:00] VITALS: BP 108/56
[2022-10-10] MEDS: DONEPEZIL HYDROCHLORIDE 5 MG TAB PO SCH (17:52)
[2022-10-10 22:00] VITALS: BP 112/49
[2022-10-10] MEDS: ATORVASTATIN 20 MG TAB PO SCH (22:07)
[2022-10-11] MEDS: IPRATROPIUM BROM 0.5 MG/2.5ML INH SOL NEB SCH ×6 (02:20→22:27)
[2022-10-11] MEDS: ALBUTEROL SULF 2.5 MG/0.5ML(0.5%) NEB SOLN NEB SCH ×6 (02:20→22:27)
[2022-10-11 04:55] VITALS: BP 123/55
[2022-10-11] MEDS: ACCU-CHEK COMFORT CURVE STRIP VI SCH ×4 (06:16→21:33)
[2022-10-11] MEDS: InsuLIN REG 1unit/0.01ml Soln (100units/ml) SC SCH ×4 (06:17→21:36)
[2022-10-11] MEDS: SODIUM CHLORIDE 0.9% 1,000 ML IV SCH ×2 (06:18→09:47)
[2022-10-11 06:58] LABS: Basophils # (auto) 0 10 ^3/uL (0-0.2); Basophils % (auto) 0.1 % (0.0-2.0); Eosinophils # (auto) 0 10 ^3/uL (0-0.8); Hematocrit 31.4 % (36.0-46.0); Hemoglobin 10.3 g/dL (12.2-16.2); Lymphocytes # (auto) 0.7 10 ^3/uL (0.4-5.4); Lymphocytes % (auto) 4.8 % (10.0-50.0); Mean Corpuscular Hemoglobin 30.4 pg (28.0-32.0); Mean Corpuscular Hgb Conc. 32.9 g/dL (32.0-36.0); Mean Corpuscular Volume 92.4 fL (80.0-100.0); Monocytes # (auto) 0.8 10 ^3/uL (0-1.3); Monocytes % (auto) 5.5 % (0.0-12.0); Neutrophils # (auto) 13.2 10 ^3/uL (1.6-8.6); Neutrophils % (auto) 89.6 % (37.0-80.0); Red Blood Cells 3.39 10^6/uL (4.0-5.20); Red Cell Distribution Width 14.3 % (11.8-14.3); White Blood Cell 14.7 10^3/uL (4.4-10.8)
[2022-10-11 07:06] LABS: Potassium 3.7 mmol/L (3.5-5.1)
[2022-10-11 07:09] LABS: BUN/Creatinine Ratio 26.5 (10.0-20.0); Calcium 8.9 mg/dL (8.5-10.1)
[2022-10-11 08:30] VITALS: BP 99/41
[2022-10-11] MEDS: AMIODARONE HCL 200 MG TAB PO SCH (09:41)
[2022-10-11] MEDS: APIXABAN 2.5 MG TAB PO SCH ×2 (09:41→21:33)
[2022-10-11] MEDS: METOPROLOL SUCCINATE XL 50 MG TAB PO SCH ×2 (09:41→21:32)
[2022-10-11] MEDS: cefTRIAXone 1GM/50ML D5W 50 ML IV SCH (09:41)
[2022-10-11] MEDS: predniSONE 20 MG TAB PO SCH (09:42)
[2022-10-11] MEDS: AZITHROMYCIN 250 MG TAB PO SCH (10:23)
[2022-10-11] MEDS: Glucerna Carbsteady SHAKE Vanilla 8oz PO SCH ×2 (12:14→18:51)
[2022-10-11 13:08] VITALS: BP 127/68
[2022-10-11 16:41] VITALS: BP 108/63
[2022-10-11] MEDS: DONEPEZIL HYDROCHLORIDE 5 MG TAB PO SCH (18:12)
[2022-10-11] MEDS: ATORVASTATIN 20 MG TAB PO SCH (21:32)
[2022-10-11 22:00] VITALS: BP 97/61
[2022-10-12] MEDS: SODIUM CHLORIDE 0.9% 1,000 ML IV SCH
[2022-10-12] MEDS: IPRATROPIUM BROM 0.5 MG/2.5ML INH SOL NEB SCH ×4 (02:38→14:07)
[2022-10-12] MEDS: ALBUTEROL SULF 2.5 MG/0.5ML(0.5%) NEB SOLN NEB SCH ×4 (02:38→14:07)
[2022-10-12 05:00] VITALS: BP 123/73
[2022-10-12 05:10] LABS: BUN/Creatinine Ratio 32.7 (10.0-20.0); Calcium 9.2 mg/dL (8.5-10.1); Potassium 3.5 mmol/L (3.5-5.1)
[2022-10-12] MEDS: ACCU-CHEK COMFORT CURVE STRIP VI SCH ×3 (07:01→17:00)
[2022-10-12] MEDS: InsuLIN REG 1unit/0.01ml Soln (100units/ml) SC SCH ×3 (07:04→17:00)
[2022-10-12 09:29] VITALS: BP 117/61
[2022-10-12] MEDS ORDERED: PRED20TA2 PO (09:47)
[2022-10-12] MEDS ORDERED: AZIT250T9 PO (09:47)
[2022-10-12] MEDS: METOPROLOL SUCCINATE XL 50 MG TAB PO SCH (11:08)
[2022-10-12] MEDS: predniSONE 20 MG TAB PO SCH (11:09)
[2022-10-12] MEDS: AMIODARONE HCL 200 MG TAB PO SCH (11:10)
[2022-10-12] MEDS: APIXABAN 2.5 MG TAB PO SCH (11:11)
[2022-10-12] MEDS: Glucerna Carbsteady SHAKE Vanilla 8oz PO SCH ×2 (11:12→12:11)
[2022-10-12] MEDS: cefTRIAXone 1GM/50ML D5W 50 ML IV SCH (11:12)
[2022-10-12 11:24] VITALS: BP 117/61
[2022-10-12] MEDS: AZITHROMYCIN 250 MG TAB PO SCH (12:10)
[2022-10-12 13:00] VITALS: BP 138/81
[2022-10-12 15:19] VITALS: BP 138/81
[2022-10-12 17:24] VITALS: BP 145/99
[2022-10-12] MEDS: DONEPEZIL HYDROCHLORIDE 5 MG TAB PO SCH (17:30)
== END 2022-10-12 18:28 | disposition home or self-care (01) | DRG 871 ==
LOC: ER 10:34 → TELE 15:12 → TELE-CENTR 18:14
PROVIDERS: ADMIT Nurse Practitioner Family; ATTEND Internal Medicine
DX: A41.9 Sepsis, unspecified organism (principal); J18.9 Pneumonia, unspecified organism; N17.0 Acute kidney failure with tubular necrosis; D68.59 Other primary thrombophilia; J44.0 Chronic obstructive pulmonary disease with (acute) lower respiratory infection; J44.1 Chronic obstructive pulmonary disease with (acute) exacerbation; E87.1 Hypo-osmolality and hyponatremia; I50.22 Chronic systolic (congestive) heart failure; J96.10 Chronic respiratory failure, unspecified whether with hypoxia or hypercapnia; Z20.822 Contact with and (suspected) exposure to COVID-19; E78.00 Pure hypercholesterolemia, unspecified; E11.9 Type 2 diabetes mellitus without complications; I48.91 Unspecified atrial fibrillation; I11.0 Hypertensive heart disease with heart failure; E03.9 Hypothyroidism, unspecified; I49.5 Sick sinus syndrome; Z82.49 Family history of ischemic heart disease and other diseases of the circulatory system; Z83.3 Family history of diabetes mellitus; Z95.0 Presence of cardiac pacemaker; Z98.49 Cataract extraction status, unspecified eye
CPT/HCPCS: 36415; 71045; 80048; 80053; 81001; 82962; 83605; 83735; 83880; 84443; 84484; 85025; 85379; 87040; 87081; 87426; 87804; 93005; 94640; 96365; 96367; 96375; 97163; 99291; G0378; J0696; J1815

== ENCOUNTER → 2022-10-25 | Outpatient (CLI) | payer MEDICARE, OTHER ==
[~2022-10-25] MED LIST changes: +AZIT-43 PO; +PRED20TA2 PO
[2022-10-25 12:05] VITALS: BP 114/65
[2022-10-25 12:28] VITALS: BP 107/64
== END | disposition home or self-care (01) ==
LOC: Rad HDHVI 12:08
PROVIDERS: ATTEND Internal Medicine Cardiovascular Disease
DX: I50.33 Acute on chronic diastolic (congestive) heart failure (principal); R06.02 Shortness of breath; J44.9 Chronic obstructive pulmonary disease, unspecified; R53.83 Other fatigue
CPT/HCPCS: 71046; 94640; G0463

== ENCOUNTER → 2022-11-01 | Outpatient (CLI) | payer MEDICARE, OTHER ==
[2022-11-01 13:23] VITALS: BP 111/72
[2022-11-01 13:45] VITALS: BP 103/53
== END | disposition home or self-care (01) ==
LOC: CHF HDHVI 13:18
PROVIDERS: ATTEND Internal Medicine Cardiovascular Disease
DX: R06.02 Shortness of breath (principal); Z09 Encounter for follow-up examination after completed treatment for conditions other than malignant neoplasm
CPT/HCPCS: G0463

== ENCOUNTER → 2022-11-13 | Outpatient (CLI) | payer MEDICARE, OTHER | END | disposition home or self-care (01) | LOC: Rad HDHVI 13:54 | PROVIDERS: ATTEND Internal Medicine Cardiovascular Disease | DX: I08.3 Combined rheumatic disorders of mitral, aortic and tricuspid valves (principal); R00.2 Palpitations; I10 Essential (primary) hypertension | CPT/HCPCS: 93306 ==

== ENCOUNTER → 2022-11-15 | Outpatient (CLI) | payer MEDICARE, OTHER ==
[2022-11-15 13:14] VITALS: BP 131/61
[2022-11-15 13:31] VITALS: BP 124/63
== END | disposition home or self-care (01) ==
LOC: CHF HDHVI 13:13
PROVIDERS: ATTEND Internal Medicine Cardiovascular Disease
DX: R06.02 Shortness of breath (principal)
CPT/HCPCS: G0463

== ENCOUNTER → 2022-11-20 | Outpatient (CLI) | payer MEDICARE ==
[2022-11-20 14:11] LABS: Basophils # (auto) 0 10 ^3/uL (0-0.2); Basophils % (auto) 0.5 % (0.0-2.0); Eosinophils # (auto) 0.1 10 ^3/uL (0-0.8); Eosinophils % (auto) 2.1 % (0.0-7.0); Hematocrit 34.4 % (36.0-46.0); Hemoglobin 11.1 g/dL (12.2-16.2); Lymphocytes # (auto) 0.8 10 ^3/uL (0.4-5.4); Lymphocytes % (auto) 12.9 % (10.0-50.0); Mean Corpuscular Hemoglobin 30.4 pg (28.0-32.0); Mean Corpuscular Hgb Conc. 32.4 g/dL (32.0-36.0); Mean Corpuscular Volume 93.8 fL (80.0-100.0); Monocytes # (auto) 0.7 10 ^3/uL (0-1.3); Monocytes % (auto) 11.9 % (0.0-12.0); Neutrophils # (auto) 4.4 10 ^3/uL (1.6-8.6); Neutrophils % (auto) 72.6 % (37.0-80.0); Red Blood Cells 3.66 10^6/uL (4.0-5.20); Red Cell Distribution Width 14.9 % (11.8-14.3); White Blood Cell 6.1 10^3/uL (4.4-10.8)
[2022-11-20 14:38] LABS: Potassium 4.4 mmol/L (3.5-5.1)
[2022-11-20 14:39] LABS: Albumin 3.6 g/dL (3.4-5.0); Calcium 9.7 mg/dL (8.5-10.1)
[2022-11-20 14:42] LABS: BUN/Creatinine Ratio 21.7 (10.0-20.0); Bilirubin, Total 0.3 mg/dL (0.2-1.0); Total Protein 7.2 g/dL (6.4-8.2)
== END | disposition home or self-care (01) ==
LOC: LAB 13:35
PROVIDERS: ATTEND Internal Medicine Cardiovascular Disease
DX: I50.23 Acute on chronic systolic (congestive) heart failure (principal)
CPT/HCPCS: 36415; 80053; 83735; 83880; 85025

== ENCOUNTER → 2022-11-22 | Outpatient (CLI) | payer MEDICARE ==
[~2022-11-22] MED LIST changes: +CYANOCOBALAMIN (B-12) 1000 MCG/1 ML VIAL IM ONE; +CYANOCOBALAMIN (B-12) 1000 MCG/1 ML VIAL ONE
[2022-11-22 13:35] VITALS: BP 113/51
[2022-11-22 13:57] VITALS: BP 102/50
== END | disposition home or self-care (01) ==
LOC: CHF HDHVI 13:15
PROVIDERS: ATTEND Internal Medicine Cardiovascular Disease
DX: J44.9 Chronic obstructive pulmonary disease, unspecified (principal); J96.10 Chronic respiratory failure, unspecified whether with hypoxia or hypercapnia; I11.0 Hypertensive heart disease with heart failure; I50.32 Chronic diastolic (congestive) heart failure; I48.91 Unspecified atrial fibrillation; E11.9 Type 2 diabetes mellitus without complications; E78.00 Pure hypercholesterolemia, unspecified; E03.9 Hypothyroidism, unspecified; D64.9 Anemia, unspecified; Z95.0 Presence of cardiac pacemaker
CPT/HCPCS: 96372; G0463; J3420

== ENCOUNTER → 2022-12-06 | Outpatient (CLI) | payer MEDICARE ==
[~2022-12-06] MED LIST changes: -CYANOCOBALAMIN (B-12) 1000 MCG/1 ML VIAL IM ONE; -CYANOCOBALAMIN (B-12) 1000 MCG/1 ML VIAL ONE
[2022-12-06 13:35] VITALS: BP 108/48; PULSE 72; RESP 18; O2SAT 92
[2022-12-06 13:52] VITALS: BP 92/44; PULSE 69; RESP 18; O2SAT 94
== END | disposition home or self-care (01) ==
LOC: CHF HDHVI 13:32
PROVIDERS: ATTEND Internal Medicine Cardiovascular Disease
DX: J44.9 Chronic obstructive pulmonary disease, unspecified (principal)
CPT/HCPCS: G0463

== ENCOUNTER → 2023-01-04 | Outpatient (CLI) | payer MEDICARE ==
[~2023-01-04] MED LIST changes: +CYANOCOBALAMIN (B-12) 1000 MCG/1 ML VIAL IM ONE; +CYANOCOBALAMIN (B-12) 1000 MCG/1 ML VIAL ONE
[2023-01-04 13:30] VITALS: BP 108/47; PULSE 70; RESP 18; O2SAT 95
[2023-01-04 13:57] VITALS: BP 100/51; PULSE 69; RESP 18; O2SAT 95
== END | disposition home or self-care (01) ==
LOC: CHF HDHVI 13:26
PROVIDERS: ATTEND Internal Medicine Cardiovascular Disease
DX: D64.9 Anemia, unspecified (principal); I11.0 Hypertensive heart disease with heart failure; I50.43 Acute on chronic combined systolic (congestive) and diastolic (congestive) heart failure; I49.5 Sick sinus syndrome; J44.9 Chronic obstructive pulmonary disease, unspecified; J96.11 Chronic respiratory failure with hypoxia; E03.9 Hypothyroidism, unspecified; E78.00 Pure hypercholesterolemia, unspecified; E11.9 Type 2 diabetes mellitus without complications; I48.91 Unspecified atrial fibrillation; Z95.0 Presence of cardiac pacemaker
CPT/HCPCS: 96372; G0463; J3420

== ENCOUNTER 2023-01-17 07:57 | Inpatient (IN) | payer MEDICARE ==
[~2023-01-17] VITALS: Ht 167.6 cm; Wt 61.0 kg
[~2023-01-17 07:57] MED LIST changes: -CYANOCOBALAMIN (B-12) 1000 MCG/1 ML VIAL IM ONE; -CYANOCOBALAMIN (B-12) 1000 MCG/1 ML VIAL ONE
[2023-01-17] MEDS ORDERED: SODIUM CHLORIDE 0.9% 2,100 ML IV ONE (08:45)
[2023-01-17 08:47] VITALS: PULSE 82; RESP 19; O2SAT 99
[2023-01-17 09:06] LABS: Base Excess -5.4 mmol/L (-2.0-2.0)
[2023-01-17 09:30] LABS: Basophils # (auto) 0.1 10 ^3/uL (0-0.2); Basophils % (auto) 0.4 % (0.0-2.0); Eosinophils # (auto) 0 10 ^3/uL (0-0.8); Eosinophils % (auto) 0.2 % (0.0-7.0); Hematocrit 33.1 % (36.0-46.0); Hemoglobin 10.8 g/dL (12.2-16.2); Lymphocytes # (auto) 0.6 10 ^3/uL (0.4-5.4); Lymphocytes % (auto) 4.5 % (10.0-50.0); Mean Corpuscular Hemoglobin 30.3 pg (28.0-32.0); Mean Corpuscular Hgb Conc. 32.7 g/dL (32.0-36.0); Mean Corpuscular Volume 92.7 fL (80.0-100.0); Monocytes # (auto) 1.2 10 ^3/uL (0-1.3); Monocytes % (auto) 8.3 % (0.0-12.0); Neutrophils # (auto) 12.1 10 ^3/uL (1.6-8.6); Neutrophils % (auto) 86.6 % (37.0-80.0); Nucleated Red Blood Cells % 0.1 %; Red Blood Cells 3.58 10^6/uL (4.0-5.20); Red Cell Distribution Width 15.2 % (11.8-14.3)
[2023-01-17 09:39] LABS: Urine Bacteria NONE SEEN /hpf (None Seen); Urine Blood TRACE /uL (Negative); Urine Clarity Clear (Clear); Urine Hyaline Cast FEW /lpf (0 - 2); Urine Protein, UAD TRACE (Negative); Urine Specific Gravity 1.011 (1.001-1.035); Urine Urobilinogen Normal (Negative); Urine WBC 2 /hpf (0 - 5)
[2023-01-17 09:40] LABS: Urine Color Straw (Yellow)
[2023-01-17 09:51] LABS: INR 1.11 (0.9-1.15); Prothrombin Time 11.6 sec (9.3-11.8)
[2023-01-17] MEDS ORDERED: METOPROLOL TARTRATE 25 MG TAB PO SCH (10:00)
[2023-01-17 10:08] LABS: Alanine Aminotransferase 158 U/L (7-40); Alkaline Phosphatase 102 U/L (46-116); Anion Gap 8.2 (5-15); BUN/Creatinine Ratio 14.5 (10.0-20.0); Blood Urea Nitrogen 19 mg/dL (9-23); Calcium 9.2 mg/dL (8.5-10.1); Carbon Dioxide 26.8 mmol/L (20-30); Chloride 95 mmol/L (98-107); Glucose 320 mg/dL (74-106); Potassium 4.3 mmol/L (3.5-5.1); Sodium 130 mmol/L (136-145)
[2023-01-17 10:09] LABS: Amphetamine Screen, Urine Neg (NEGATIVE)
[2023-01-17 10:09] LABS: Albumin 4.3 g/dL (3.2-4.8); Aspartate Aminotransferase 186 U/L (13-40); Bilirubin, Total 0.4 mg/dL (0.2-1.0); Total Protein 6.7 g/dL (5.7-8.2)
[2023-01-17 10:10] LABS: Barbiturate Scree,Urine Neg (NEGATIVE); Benzodiazephine Screen, Urine Neg (NEGATIVE); Cocaine Screen, Urine Neg (NEGATIVE); Opiate Scree,Urine Neg (NEGATIVE); Phencyclidine Screen, Urine Neg (NEGATIVE)
[2023-01-17 10:11] LABS: Cannabinoid Screen, Urine Neg (NEGATIVE)
[2023-01-17 10:14] LABS: Base Excess -5.2 mmol/L (-2.0-2.0)
[2023-01-17 10:56] VITALS: BP 188/91; PULSE 71; RESP 18; O2SAT 99
[2023-01-17] MEDS ORDERED: ONDANSETRON HCL 4 MG/2 ML VIAL IV ONE (11:00)
[2023-01-17] MEDS ORDERED: ASPirin 325 MG TAB PO ONE (11:00)
[2023-01-17] MEDS ORDERED: levoFLOXacin 750MG 150 ML IV ONE (11:15)
[2023-01-17 12:00] VITALS: BP 149/66; PULSE 78; O2SAT 99
[2023-01-17 13:46] VITALS: BP 149/66; PULSE 80; O2SAT 99
[2023-01-17] MEDS ORDERED: NITROGLYCERIN 0.4 MG SL TAB SL PRN (16:30)
[2023-01-17] MEDS ORDERED: MORPHINE SULFATE INJ 2 MG/ml SYRG IV PRN ×2 (16:30)
[2023-01-17] MEDS ORDERED: ACETAMINOPHEN 500 MG TAB PO PRN (16:30)
[2023-01-17] MEDS ORDERED: HYDROcodone-ACET 5/325MG TAB PO PRN (16:30)
[2023-01-17] MEDS ORDERED: ONDANSETRON HCL 4 MG/2 ML VIAL IV PRN (16:30)
[2023-01-17] MEDS: ATORVASTATIN 20 MG TAB PO SCH (18:22)
[2023-01-17] MEDS: IPRATROPIUM BROM 0.5 MG/2.5ML INH SOL NEB SCH (18:51)
[2023-01-17] MEDS: ALBUTEROL SULF 2.5 MG/0.5ML(0.5%) NEB SOLN NEB SCH (18:51)
[2023-01-17] MEDS: BUDESONIDE (INHALATION) 0.5 MG/2 ML NEB NEB SCH (18:51)
[2023-01-17] MEDS: DONEPEZIL HYDROCHLORIDE 5 MG TAB PO SCH (18:58)
[2023-01-17 20:53] VITALS: PULSE 70; RESP 15; O2SAT 97
[2023-01-17 21:26] VITALS: BP 95/45; PULSE 70; RESP 19; RESP 70; TEMP 99; O2SAT 95
[2023-01-17] MEDS ORDERED: TRIA37.587 PO (22:25)
[2023-01-17] MEDS: APIXABAN 2.5 MG TAB PO SCH (23:26)
[2023-01-17] MEDS: METOPROLOL SUCCINATE XL 50 MG TAB PO SCH (23:27)
[2023-01-18] VITALS (13 sets, daily range): BP systolic 111–138; BP diastolic 57–77; PULSE 66–83; RESP 18–20; TEMP 98.1–99.1; O2SAT 93–99
[2023-01-18 01:44] LABS: Rapid Influenza A Negative (Negative); Rapid Influenza B Negative (Negative)
[2023-01-18 05:38] LABS: Basophils # (auto) 0 10 ^3/uL (0-0.2); Basophils % (auto) 0.4 % (0.0-2.0); Eosinophils # (auto) 0.1 10 ^3/uL (0-0.8); Eosinophils % (auto) 0.9 % (0.0-7.0); Hematocrit 25.7 % (36.0-46.0); Hemoglobin 8.6 g/dL (12.2-16.2); Lymphocytes # (auto) 1.1 10 ^3/uL (0.4-5.4); Lymphocytes % (auto) 12.3 % (10.0-50.0); Mean Corpuscular Hemoglobin 30.8 pg (28.0-32.0); Mean Corpuscular Hgb Conc. 33.4 g/dL (32.0-36.0); Mean Corpuscular Volume 92.4 fL (80.0-100.0); Monocytes # (auto) 0.8 10 ^3/uL (0-1.3); Monocytes % (auto) 9.6 % (0.0-12.0); Neutrophils # (auto) 6.7 10 ^3/uL (1.6-8.6); Neutrophils % (auto) 76.8 % (37.0-80.0); Red Blood Cells 2.78 10^6/uL (4.0-5.20); Red Cell Distribution Width 14.9 % (11.8-14.3); White Blood Cell 8.7 10^3/uL (4.4-10.8)
[2023-01-18 06:22] LABS: Chloride 101 mmol/L (98-107); Potassium 3.2 mmol/L (3.5-5.1); Sodium 132 mmol/L (136-145)
[2023-01-18 06:23] LABS: Anion Gap 5.6 (5-15); Carbon Dioxide 25.4 mmol/L (20-30)
[2023-01-18] MEDS: BUDESONIDE (INHALATION) 0.5 MG/2 ML NEB NEB SCH ×2 (06:23→17:46)
[2023-01-18] MEDS: ALBUTEROL SULF 2.5 MG/0.5ML(0.5%) NEB SOLN NEB SCH ×3 (06:23→17:45)
[2023-01-18 06:24] LABS: Calcium 8.5 mg/dL (8.7-10.4)
[2023-01-18] MEDS: IPRATROPIUM BROM 0.5 MG/2.5ML INH SOL NEB SCH ×3 (06:24→17:46)
[2023-01-18 06:28] LABS: BUN/Creatinine Ratio 12.5 (10.0-20.0); Blood Urea Nitrogen 16 mg/dL (9-23); Glucose 108 mg/dL (74-106)
[2023-01-18] MEDS: methylPREDNISolone SOD SUCC 40 MG/ML VL IV SCH (08:56)
[2023-01-18] MEDS: cefTRIAXone 1GM/50ML D5W 50 ML IV SCH (08:56)
[2023-01-18] MEDS: APIXABAN 2.5 MG TAB PO SCH ×2 (08:56→21:47)
[2023-01-18] MEDS: METOPROLOL SUCCINATE XL 50 MG TAB PO SCH ×2 (08:57→21:47)
[2023-01-18] MEDS: AMIODARONE HCL 200 MG TAB PO SCH (08:57)
[2023-01-18] MEDS ORDERED: AZITHROMYCIN 500MG/ 250ML 250 ML IV SCH (10:00)
[2023-01-18] MEDS: DONEPEZIL HYDROCHLORIDE 5 MG TAB PO SCH (17:58)
[2023-01-18] MEDS: ATORVASTATIN 20 MG TAB PO SCH (17:59)
[2023-01-18] MEDS: DOXYCYCLINE 100 MG TAB/CAP PO SCH (21:45)
[2023-01-19] VITALS (12 sets, daily range): BP systolic 133–156; BP diastolic 66–74; PULSE 67–95; RESP 16–20; TEMP 97.7–98.5; O2SAT 93–100
[2023-01-19 06:11] LABS: Chloride 104 mmol/L (98-107); Potassium 3.9 mmol/L (3.5-5.1); Sodium 135 mmol/L (136-145)
[2023-01-19 06:12] LABS: Anion Gap 6.7 (5-15); Calcium 9.2 mg/dL (8.5-10.1); Carbon Dioxide 24.3 mmol/L (20-30)
[2023-01-19 06:17] LABS: BUN/Creatinine Ratio 15.1 (10.0-20.0); Blood Urea Nitrogen 18 mg/dL (9-23); Glucose 194 mg/dL (74-106)
[2023-01-19 06:20] LABS: Basophils # (auto) 0 10 ^3/uL (0-0.2); Basophils % (auto) 0.1 % (0.0-2.0); Eosinophils # (auto) 0 10 ^3/uL (0-0.8); Eosinophils % (auto) 0.1 % (0.0-7.0); Hematocrit 27.3 % (36.0-46.0); Hemoglobin 9.3 g/dL (12.2-16.2); Lymphocytes # (auto) 0.6 10 ^3/uL (0.4-5.4); Lymphocytes % (auto) 6.6 % (10.0-50.0); Mean Corpuscular Hgb Conc. 33.9 g/dL (32.0-36.0); Mean Corpuscular Volume 91.5 fL (80.0-100.0); Monocytes # (auto) 0.9 10 ^3/uL (0-1.3); Monocytes % (auto) 9.4 % (0.0-12.0); Neutrophils % (auto) 83.8 % (37.0-80.0); Nucleated Red Blood Cells % 0.2 %; Red Blood Cells 2.99 10^6/uL (4.0-5.20); Red Cell Distribution Width 14.9 % (11.8-14.3); White Blood Cell 9.5 10^3/uL (4.4-10.8)
[2023-01-19] MEDS: IPRATROPIUM BROM 0.5 MG/2.5ML INH SOL NEB SCH ×3 (07:42→18:17)
[2023-01-19] MEDS: ALBUTEROL SULF 2.5 MG/0.5ML(0.5%) NEB SOLN NEB SCH ×3 (07:42→18:17)
[2023-01-19] MEDS: BUDESONIDE (INHALATION) 0.5 MG/2 ML NEB NEB SCH ×2 (07:42→18:17)
[2023-01-19] MEDS: AMIODARONE HCL 200 MG TAB PO SCH (09:53)
[2023-01-19] MEDS: cefTRIAXone 1GM/50ML D5W 50 ML IV SCH (09:53)
[2023-01-19] MEDS: methylPREDNISolone SOD SUCC 40 MG/ML VL IV SCH (09:53)
[2023-01-19] MEDS: METOPROLOL SUCCINATE XL 50 MG TAB PO SCH ×2 (09:54→21:51)
[2023-01-19] MEDS: APIXABAN 2.5 MG TAB PO SCH ×2 (09:54→21:50)
[2023-01-19] MEDS: DOXYCYCLINE 100 MG TAB/CAP PO SCH ×2 (09:54→21:50)
[2023-01-19] MEDS: DONEPEZIL HYDROCHLORIDE 5 MG TAB PO SCH (18:49)
[2023-01-19] MEDS: ATORVASTATIN 20 MG TAB PO SCH (18:49)
[2023-01-20] VITALS (12 sets, daily range): BP systolic 121–175; BP diastolic 56–86; PULSE 69–76; RESP 16–20; TEMP 97.6–98.6; O2SAT 96–99
[2023-01-20] MEDS: ALBUTEROL SULF 2.5 MG/0.5ML(0.5%) NEB SOLN NEB SCH ×3 (07:10→18:22)
[2023-01-20] MEDS: BUDESONIDE (INHALATION) 0.5 MG/2 ML NEB NEB SCH ×2 (07:10→18:22)
[2023-01-20] MEDS: IPRATROPIUM BROM 0.5 MG/2.5ML INH SOL NEB SCH ×3 (07:10→18:22)
[2023-01-20] MEDS: cefTRIAXone 1GM/50ML D5W 50 ML IV SCH (08:52)
[2023-01-20] MEDS: hydrALAZINE HCL 20 MG/ML VL IV PRN (08:52)
[2023-01-20] MEDS: DOXYCYCLINE 100 MG TAB/CAP PO SCH ×2 (10:10→21:31)
[2023-01-20] MEDS: METOPROLOL SUCCINATE XL 50 MG TAB PO SCH (10:10)
[2023-01-20] MEDS: APIXABAN 2.5 MG TAB PO SCH ×2 (10:10→21:31)
[2023-01-20] MEDS: AMIODARONE HCL 200 MG TAB PO SCH (10:10)
[2023-01-20] MEDS: methylPREDNISolone SOD SUCC 40 MG/ML VL IV SCH (10:10)
[2023-01-20] MEDS: DONEPEZIL HYDROCHLORIDE 5 MG TAB PO SCH (18:10)
[2023-01-20] MEDS: ATORVASTATIN 20 MG TAB PO SCH (18:10)
[2023-01-21] VITALS (12 sets, daily range): BP systolic 135–166; BP diastolic 60–84; PULSE 70–87; RESP 14–20; TEMP 97.5–98.2; O2SAT 96–100
[2023-01-21] MEDS: hydrALAZINE HCL 20 MG/ML VL IV PRN (05:02)
[2023-01-21] MEDS: BUDESONIDE (INHALATION) 0.5 MG/2 ML NEB NEB SCH ×2 (05:49→19:23)
[2023-01-21] MEDS: IPRATROPIUM BROM 0.5 MG/2.5ML INH SOL NEB SCH ×3 (05:49→19:23)
[2023-01-21] MEDS: ALBUTEROL SULF 2.5 MG/0.5ML(0.5%) NEB SOLN NEB SCH ×3 (05:49→19:23)
[2023-01-21 06:07] LABS: Basophils # (auto) 0 10 ^3/uL (0-0.2); Eosinophils # (auto) 0 10 ^3/uL (0-0.8); Hematocrit 28.8 % (36.0-46.0); Hemoglobin 9.6 g/dL (12.2-16.2); Lymphocytes # (auto) 0.7 10 ^3/uL (0.4-5.4); Lymphocytes % (auto) 6.6 % (10.0-50.0); Mean Corpuscular Hemoglobin 30.3 pg (28.0-32.0); Mean Corpuscular Hgb Conc. 33.3 g/dL (32.0-36.0); Monocytes # (auto) 0.5 10 ^3/uL (0-1.3); Monocytes % (auto) 5.4 % (0.0-12.0); Neutrophils # (auto) 8.8 10 ^3/uL (1.6-8.6); Red Blood Cells 3.17 10^6/uL (4.0-5.20); Red Cell Distribution Width 14.9 % (11.8-14.3)
[2023-01-21 06:10] LABS: Chloride 102 mmol/L (98-107); Potassium 3.6 mmol/L (3.5-5.1); Sodium 135 mmol/L (136-145)
[2023-01-21 06:11] LABS: Calcium 9.1 mg/dL (8.5-10.1)
[2023-01-21 06:15] LABS: Glucose 211 mg/dL (74-106)
[2023-01-21 06:16] LABS: BUN/Creatinine Ratio 24.1 (10.0-20.0); Blood Urea Nitrogen 27 mg/dL (9-23)
[2023-01-21 06:24] LABS: Anion Gap 6.9 (5-15); Carbon Dioxide 26.1 mmol/L (20-30)
[2023-01-21] MEDS: methylPREDNISolone SOD SUCC 40 MG/ML VL IV SCH (09:42)
[2023-01-21] MEDS: AMIODARONE HCL 200 MG TAB PO SCH (09:42)
[2023-01-21] MEDS: METOPROLOL SUCCINATE XL 50 MG TAB PO SCH (09:42)
[2023-01-21] MEDS: APIXABAN 2.5 MG TAB PO SCH ×2 (09:42→21:03)
[2023-01-21] MEDS: DOXYCYCLINE 100 MG TAB/CAP PO SCH ×2 (09:42→21:03)
[2023-01-21] MEDS: cefTRIAXone 1GM/50ML D5W 50 ML IV SCH (09:42)
[2023-01-21] MEDS: ATORVASTATIN 20 MG TAB PO SCH (17:38)
[2023-01-21] MEDS: DONEPEZIL HYDROCHLORIDE 5 MG TAB PO SCH (17:38)
[2023-01-22] VITALS (13 sets, daily range): BP systolic 96–177; BP diastolic 47–99; PULSE 70–82; RESP 16–18; TEMP 97.7–98.3; O2SAT 94–100
[2023-01-22] MEDS ORDERED: cloNIDine HCL 0.1 MG TAB PO ONE (06:00)
[2023-01-22] MEDS: IPRATROPIUM BROM 0.5 MG/2.5ML INH SOL NEB SCH ×3 (06:16→18:39)
[2023-01-22] MEDS: ALBUTEROL SULF 2.5 MG/0.5ML(0.5%) NEB SOLN NEB SCH ×3 (06:16→18:39)
[2023-01-22] MEDS: BUDESONIDE (INHALATION) 0.5 MG/2 ML NEB NEB SCH ×2 (06:20→18:39)
[2023-01-22] MEDS: AMIODARONE HCL 200 MG TAB PO SCH (09:30)
[2023-01-22] MEDS: APIXABAN 2.5 MG TAB PO SCH ×2 (09:30→21:30)
[2023-01-22] MEDS: DOXYCYCLINE 100 MG TAB/CAP PO SCH ×2 (09:30→21:30)
[2023-01-22] MEDS: NIFEdipine ER 30 MG TAB PO SCH (09:30)
[2023-01-22] MEDS: METOPROLOL SUCCINATE XL 50 MG TAB PO SCH (09:30)
[2023-01-22] MEDS: methylPREDNISolone SOD SUCC 40 MG/ML VL IV SCH (09:31)
[2023-01-22] MEDS: cefTRIAXone 1GM/50ML D5W 50 ML IV SCH (09:31)
[2023-01-22] MEDS: DONEPEZIL HYDROCHLORIDE 5 MG TAB PO SCH (17:06)
[2023-01-22] MEDS: ATORVASTATIN 20 MG TAB PO SCH (17:06)
[2023-01-22] MEDS: CEFUROXIME 250 MG TAB PO SCH (22:00)
[2023-01-23] VITALS (11 sets, daily range): BP systolic 104–129; BP diastolic 53–69; PULSE 70–77; RESP 16–19; TEMP 97.9–98.1; O2SAT 95–100
[2023-01-23] MEDS: ALBUTEROL SULF 2.5 MG/0.5ML(0.5%) NEB SOLN NEB SCH ×2 (07:03→11:54)
[2023-01-23] MEDS: IPRATROPIUM BROM 0.5 MG/2.5ML INH SOL NEB SCH ×2 (07:04→11:54)
[2023-01-23] MEDS: BUDESONIDE (INHALATION) 0.5 MG/2 ML NEB NEB SCH (07:06)
[2023-01-23] MEDS: methylPREDNISolone SOD SUCC 40 MG/ML VL IV SCH (09:38)
[2023-01-23] MEDS: NIFEdipine ER 30 MG TAB PO SCH (09:38)
[2023-01-23] MEDS: AMIODARONE HCL 200 MG TAB PO SCH (09:38)
[2023-01-23] MEDS: DOXYCYCLINE 100 MG TAB/CAP PO SCH (09:38)
[2023-01-23] MEDS: CEFUROXIME 250 MG TAB PO SCH (09:39)
[2023-01-23] MEDS: APIXABAN 2.5 MG TAB PO SCH (09:39)
[2023-01-23] MEDS: METOPROLOL SUCCINATE XL 50 MG TAB PO SCH (09:40)
[2023-01-23] MEDS ORDERED: DOX100T PO (11:36)
== END 2023-01-23 14:00 | disposition home or self-care (01) | DRG 871 ==
LOC: ER 07:57 → EDBD 07:57 → TELE 16:29 → TELE-EAST 21:26 → EAST 01-20 13:58
PROVIDERS: ADMIT Nurse Practitioner Acute Care; ATTEND Nurse Practitioner Acute Care
PROC: 5A09357 Assistance with Respiratory Ventilation, Less than 24 Consecutive Hours, Continuous Positive Airway Pressure (ICD-10-PCS; principal; 2023-01-17)
DX: A41.9 Sepsis, unspecified organism (principal); G93.41 Metabolic encephalopathy; J96.22 Acute and chronic respiratory failure with hypercapnia; J96.21 Acute and chronic respiratory failure with hypoxia; J15.6 Pneumonia due to other Gram-negative bacteria; J15.9 Unspecified bacterial pneumonia; I21.4 Non-ST elevation (NSTEMI) myocardial infarction; E87.1 Hypo-osmolality and hyponatremia; J44.0 Chronic obstructive pulmonary disease with (acute) lower respiratory infection; I13.0 Hypertensive heart and chronic kidney disease with heart failure and stage 1 through stage 4 chronic kidney disease, or unspecified chronic kidney disease; J44.1 Chronic obstructive pulmonary disease with (acute) exacerbation; E87.4 Mixed disorder of acid-base balance; J98.11 Atelectasis; Z20.822 Contact with and (suspected) exposure to COVID-19; E78.5 Hyperlipidemia, unspecified; E11.65 Type 2 diabetes mellitus with hyperglycemia; I49.5 Sick sinus syndrome; I48.91 Unspecified atrial fibrillation; N18.31 Chronic kidney disease, stage 3a; I50.9 Heart failure, unspecified; E11.22 Type 2 diabetes mellitus with diabetic chronic kidney disease; E78.00 Pure hypercholesterolemia, unspecified; F17.210 Nicotine dependence, cigarettes, uncomplicated; Z82.49 Family history of ischemic heart disease and other diseases of the circulatory system; Z79.84 Long term (current) use of oral hypoglycemic drugs; Z79.01 Long term (current) use of anticoagulants; Z79.899 Other long term (current) drug therapy; Z83.3 Family history of diabetes mellitus; Z87.01 Personal history of pneumonia (recurrent); Z95.0 Presence of cardiac pacemaker
CPT/HCPCS: 36415; 36600; 70450; 71045; 80048; 80053; 80307; 81001; 82140; 82805; 83605; 84484; 85025; 85610; 87040; 87077; 87186; 87804; 93005; 94640; 94660; 96361; 96375; 97110; 97116; 97163; 97530; 99291; G0378; J0696; J2405

== ENCOUNTER → 2023-02-02 | Outpatient (CLI) | payer MEDICARE ==
[~2023-02-02] VITALS: Ht 30.5 cm; Wt 0.5 kg
[~2023-02-02] MED LIST changes: -ALBUAER3 IN; -ASPI1TAB20 PO; -AZIT-43 PO; +CYANOCOBALAMIN (B-12) 1000 MCG/1 ML VIAL IM ONE; +CYANOCOBALAMIN (B-12) 1000 MCG/1 ML VIAL ONE; +DOX100T PO; -PRED20TA2 PO; +TRIA37.587 PO; -TRIA50CA43 PO; -ZINC220C10 PO
[2023-02-02 11:30] VITALS: BP 110/60; PULSE 72; RESP 18; O2SAT 96
[2023-02-02 11:50] VITALS: BP 99/62; PULSE 75; RESP 18; O2SAT 96
== END | disposition home or self-care (01) ==
LOC: CHF HDHVI 11:19
PROVIDERS: ATTEND Internal Medicine Cardiovascular Disease
DX: D51.9 Vitamin B12 deficiency anemia, unspecified (principal); I13.0 Hypertensive heart and chronic kidney disease with heart failure and stage 1 through stage 4 chronic kidney disease, or unspecified chronic kidney disease; E11.22 Type 2 diabetes mellitus with diabetic chronic kidney disease; I50.43 Acute on chronic combined systolic (congestive) and diastolic (congestive) heart failure; N18.31 Chronic kidney disease, stage 3a; J44.9 Chronic obstructive pulmonary disease, unspecified; J96.10 Chronic respiratory failure, unspecified whether with hypoxia or hypercapnia; E78.5 Hyperlipidemia, unspecified; Z79.01 Long term (current) use of anticoagulants; Z79.84 Long term (current) use of oral hypoglycemic drugs; Z87.891 Personal history of nicotine dependence
CPT/HCPCS: 96372; G0463; J3420

== ENCOUNTER 2023-02-09 02:20 | Inpatient (IN) | payer MEDICARE ==
[2023-02-09] VITALS (9 sets, daily range): BP systolic 85–99; BP diastolic 42–49; PULSE 69–77; RESP 15–20; TEMP 97.6–97.8; O2SAT 95–98
[~2023-02-09] VITALS: Ht 157.5 cm; Wt 56.8 kg
[~2023-02-09 02:20] MED LIST changes: -CYANOCOBALAMIN (B-12) 1000 MCG/1 ML VIAL IM ONE; -CYANOCOBALAMIN (B-12) 1000 MCG/1 ML VIAL ONE
[2023-02-09] MEDS ORDERED: FUROSEMIDE 40 MG/4 ML VIAL IV ONE (03:00)
[2023-02-09] MEDS ORDERED: ALBUTEROL SULF 2.5 MG/0.5ML(0.5%) NEB SOLN NEB ONE (03:00)
[2023-02-09] MEDS ORDERED: IPRATROPIUM BROM 0.5 MG/2.5ML INH SOL NEB ONE (03:00)
[2023-02-09] MEDS ORDERED: methylPREDNISolone SOD SUCC 40 MG/ML VL IV ONE (03:00)
[2023-02-09 03:09] LABS: Basophils # (auto) 0 10 ^3/uL (0-0.2); Basophils % (auto) 0.5 % (0.0-2.0); Eosinophils # (auto) 0.2 10 ^3/uL (0-0.8); Eosinophils % (auto) 2.7 % (0.0-7.0); Hematocrit 33.4 % (36.0-46.0); Hemoglobin 10.8 g/dL (12.2-16.2); Lymphocytes # (auto) 2.2 10 ^3/uL (0.4-5.4); Lymphocytes % (auto) 24.6 % (10.0-50.0); Mean Corpuscular Hemoglobin 30.2 pg (28.0-32.0); Mean Corpuscular Hgb Conc. 32.2 g/dL (32.0-36.0); Mean Corpuscular Volume 93.8 fL (80.0-100.0); Monocytes # (auto) 0.6 10 ^3/uL (0-1.3); Monocytes % (auto) 7.3 % (0.0-12.0); Neutrophils # (auto) 5.7 10 ^3/uL (1.6-8.6); Neutrophils % (auto) 64.9 % (37.0-80.0); Nucleated Red Blood Cells % 0.1 %; Red Blood Cells 3.56 10^6/uL (4.0-5.20); Red Cell Distribution Width 16.3 % (11.8-14.3); White Blood Cell 8.8 10^3/uL (4.4-10.8)
[2023-02-09 03:24] LABS: INR 1.07 (0.9-1.15); Partial Thromboplastin Time 29.1 SEC (24.5-34.5); Prothrombin Time 11.2 sec (9.3-11.8)
[2023-02-09 03:26] LABS: Alanine Aminotransferase 19 U/L (7-40); Alkaline Phosphatase 83 U/L (46-116); Anion Gap 7 (5-15); Aspartate Aminotransferase 16 U/L (13-40); Blood Urea Nitrogen 13 mg/dL (9-23); Calcium 9.6 mg/dL (8.7-10.4); Carbon Dioxide 25 mmol/L (20-30); Chloride 100 mmol/L (98-107); Glucose 200 mg/dL (74-106); Potassium 4.5 mmol/L (3.5-5.1); Sodium 132 mmol/L (136-145)
[2023-02-09 03:27] LABS: Albumin 4.7 g/dL (3.2-4.8); Bilirubin, Total 0.4 mg/dL (0.2-1.0); Total Protein 6.9 g/dL (5.7-8.2)
[2023-02-09] MEDS ORDERED: HYDROcodone-ACET 5/325MG TAB PO PRN (07:15)
[2023-02-09] MEDS ORDERED: MORPHINE SULFATE INJ 2 MG/ml SYRG IV PRN (07:15)
[2023-02-09] MEDS ORDERED: NITROGLYCERIN 0.4 MG SL TAB SL PRN (07:15)
[2023-02-09] MEDS ORDERED: IPRATROPIUM BROM 0.5 MG/2.5ML INH SOL NEB PRN (07:15)
[2023-02-09] MEDS ORDERED: DOCUSATE SOD 100 MG CAP PO PRN (07:15)
[2023-02-09] MEDS ORDERED: ACETAMINOPHEN 325 MG TAB PO PRN (07:15)
[2023-02-09] MEDS ORDERED: DEXTROSE (50%) 50ML SYRG IV PRN (07:15)
[2023-02-09] MEDS ORDERED: ONDANSETRON HCL 4 MG/2 ML VIAL IV PRN (07:15)
[2023-02-09] MEDS ORDERED: ALBUTEROL SULF 2.5 MG/0.5ML(0.5%) NEB SOLN NEB PRN (07:15)
[2023-02-09 07:59] LABS: Basophils # (auto) 0 10 ^3/uL (0-0.2); Basophils % (auto) 0.2 % (0.0-2.0); Eosinophils # (auto) 0 10 ^3/uL (0-0.8); Eosinophils % (auto) 0.1 % (0.0-7.0); Hematocrit 29.2 % (36.0-46.0); Hemoglobin 9.8 g/dL (12.2-16.2); Lymphocytes # (auto) 0.3 10 ^3/uL (0.4-5.4); Lymphocytes % (auto) 3.4 % (10.0-50.0); Mean Corpuscular Hemoglobin 30.9 pg (28.0-32.0); Mean Corpuscular Hgb Conc. 33.5 g/dL (32.0-36.0); Mean Corpuscular Volume 92.2 fL (80.0-100.0); Monocytes # (auto) 0.2 10 ^3/uL (0-1.3); Monocytes % (auto) 2.1 % (0.0-12.0); Neutrophils # (auto) 8.4 10 ^3/uL (1.6-8.6); Neutrophils % (auto) 94.2 % (37.0-80.0); Red Blood Cells 3.16 10^6/uL (4.0-5.20); Red Cell Distribution Width 15.5 % (11.8-14.3)
[2023-02-09 08:23] LABS: Alanine Aminotransferase 18 U/L (7-40); Albumin 3.8 g/dL (3.2-4.8); Alkaline Phosphatase 60 U/L (46-116); Aspartate Aminotransferase 17 U/L (13-40); Bilirubin, Total 0.4 mg/dL (0.2-1.0); Blood Urea Nitrogen 13 mg/dL (9-23); Calcium 9.4 mg/dL (8.5-10.1); Carbon Dioxide 29 mmol/L (20-30); Glucose 165 mg/dL (74-106)
[2023-02-09 08:58] LABS: Anion Gap 6 (5-15); Chloride 99 mmol/L (98-107); Potassium 4.2 mmol/L (3.5-5.1); Sodium 134 mmol/L (136-145)
[2023-02-09] MEDS ORDERED: FAMOTIDINE (10MG/ML) 2ML VL IV SCH (10:00)
[2023-02-09] MEDS: FUROSEMIDE 40 MG/4 ML VIAL IV SCH (10:38)
[2023-02-09] MEDS: APIXABAN 2.5 MG TAB PO SCH ×2 (10:39→21:45)
[2023-02-09] MEDS: ACCU-CHEK COMFORT CURVE STRIP VI SCH ×3 (12:47→22:27)
[2023-02-09] MEDS: InsuLIN REG 1unit/0.01ml Soln (100units/ml) SC SCH ×2 (12:54→17:00)
[2023-02-09] MEDS: SODIUM CHLOR 0.9% PF (SALINE LOCK) 10ML VIAL/SYR IV SCH ×2 (13:59→21:46)
[2023-02-09] MEDS: methylPREDNISolone SOD SUCC 40 MG/ML VL IV SCH ×2 (13:59→21:45)
[2023-02-09] MEDS ORDERED: UMEC1AER IN (14:07)
[2023-02-09] MEDS ORDERED: ATORVASTATIN 20 MG TAB PO SCH (22:00)
[2023-02-09] MEDS ORDERED: InsuLIN REG 1unit/0.01ml Soln (100units/ml) SC SCH (22:00)
[2023-02-10] VITALS (8 sets, daily range): BP systolic 113–130; BP diastolic 51–79; PULSE 70–78; RESP 14–18; TEMP 36.9; O2SAT 96–100
[2023-02-10 06:33] LABS: Basophils # (auto) 0 10 ^3/uL (0-0.2); Eosinophils # (auto) 0 10 ^3/uL (0-0.8); Hematocrit 26.4 % (36.0-46.0); Hemoglobin 8.9 g/dL (12.2-16.2); Lymphocytes # (auto) 0.4 10 ^3/uL (0.4-5.4); Lymphocytes % (auto) 2.8 % (10.0-50.0); Mean Corpuscular Hemoglobin 30.8 pg (28.0-32.0); Mean Corpuscular Hgb Conc. 33.8 g/dL (32.0-36.0); Mean Corpuscular Volume 91.1 fL (80.0-100.0); Monocytes # (auto) 0.4 10 ^3/uL (0-1.3); Monocytes % (auto) 2.3 % (0.0-12.0); Neutrophils # (auto) 14.6 10 ^3/uL (1.6-8.6); Neutrophils % (auto) 94.9 % (37.0-80.0); Red Cell Distribution Width 15.5 % (11.8-14.3); White Blood Cell 15.4 10^3/uL (4.4-10.8)
[2023-02-10] MEDS: methylPREDNISolone SOD SUCC 40 MG/ML VL IV SCH ×2 (06:36→14:20)
[2023-02-10] MEDS: ACCU-CHEK COMFORT CURVE STRIP VI SCH ×3 (06:37→17:00)
[2023-02-10] MEDS: SODIUM CHLOR 0.9% PF (SALINE LOCK) 10ML VIAL/SYR IV SCH ×2 (06:37→14:20)
[2023-02-10 06:49] LABS: Alanine Aminotransferase 15 U/L (7-40); Albumin 3.6 g/dL (3.2-4.8); Alkaline Phosphatase 60 U/L (46-116); Anion Gap 5 (5-15); Aspartate Aminotransferase 12 U/L (13-40); Calcium 9.2 mg/dL (8.7-10.4); Carbon Dioxide 29 mmol/L (20-30); Chloride 98 mmol/L (98-107); Glucose 190 mg/dL (74-106); Potassium 3.6 mmol/L (3.5-5.1); Sodium 132 mmol/L (136-145)
[2023-02-10 06:50] LABS: Bilirubin, Total 0.3 mg/dL (0.2-1.0); Total Protein 5.8 g/dL (5.7-8.2)
[2023-02-10 06:56] LABS: Blood Urea Nitrogen 26 mg/dL (9-23)
[2023-02-10] MEDS: InsuLIN REG 1unit/0.01ml Soln (100units/ml) SC SCH ×3 (06:58→17:00)
[2023-02-10] MEDS: APIXABAN 2.5 MG TAB PO SCH (09:09)
[2023-02-10] MEDS: FUROSEMIDE 40 MG/4 ML VIAL IV SCH (09:10)
== END 2023-02-10 18:00 | disposition home or self-care (01) | DRG 291 ==
LOC: ER 02:20 → TELE 07:20 → TELE-WESTW 12:31
PROVIDERS: ADMIT Nurse Practitioner Family; ATTEND Nurse Practitioner Acute Care
DX: I11.0 Hypertensive heart disease with heart failure (principal); I50.43 Acute on chronic combined systolic (congestive) and diastolic (congestive) heart failure; J96.21 Acute and chronic respiratory failure with hypoxia; E87.1 Hypo-osmolality and hyponatremia; J44.1 Chronic obstructive pulmonary disease with (acute) exacerbation; N17.9 Acute kidney failure, unspecified; E11.65 Type 2 diabetes mellitus with hyperglycemia; I42.9 Cardiomyopathy, unspecified; F17.210 Nicotine dependence, cigarettes, uncomplicated; I48.91 Unspecified atrial fibrillation; K21.9 Gastro-esophageal reflux disease without esophagitis; Z79.899 Other long term (current) drug therapy; Z82.49 Family history of ischemic heart disease and other diseases of the circulatory system; Z83.3 Family history of diabetes mellitus; Z99.81 Dependence on supplemental oxygen
CPT/HCPCS: 36415; 36600; 71045; 80053; 82805; 82962; 83880; 84484; 85025; 85610; 85730; 93005; 94640; 96374; 96375; G0378; J1815; J3490

== ENCOUNTER → 2023-03-09 | Outpatient (CLI) | payer MEDICARE ==
[~2023-03-09] VITALS: Ht 30.5 cm; Wt 0.5 kg
[~2023-03-09] MED LIST changes: +CYANOCOBALAMIN (B-12) 1000 MCG/1 ML VIAL IM ONE; +CYANOCOBALAMIN (B-12) 1000 MCG/1 ML VIAL ONE; +UMEC1AER IN
[2023-03-09 11:42] VITALS: BP 115/54; PULSE 70; RESP 18; O2SAT 97
[2023-03-09 11:56] VITALS: BP 106/55; PULSE 88; RESP 18; O2SAT 98
== END | disposition home or self-care (01) ==
LOC: CHF HDHVI 11:36
PROVIDERS: ATTEND Internal Medicine Cardiovascular Disease
DX: D51.9 Vitamin B12 deficiency anemia, unspecified (principal); I13.0 Hypertensive heart and chronic kidney disease with heart failure and stage 1 through stage 4 chronic kidney disease, or unspecified chronic kidney disease; E11.22 Type 2 diabetes mellitus with diabetic chronic kidney disease; N18.31 Chronic kidney disease, stage 3a; I50.43 Acute on chronic combined systolic (congestive) and diastolic (congestive) heart failure; J44.9 Chronic obstructive pulmonary disease, unspecified; E78.00 Pure hypercholesterolemia, unspecified; K21.9 Gastro-esophageal reflux disease without esophagitis; I48.91 Unspecified atrial fibrillation; J96.11 Chronic respiratory failure with hypoxia; F17.210 Nicotine dependence, cigarettes, uncomplicated; Z79.01 Long term (current) use of anticoagulants; Z79.84 Long term (current) use of oral hypoglycemic drugs; Z79.899 Other long term (current) drug therapy
CPT/HCPCS: 96372; G0463; J3420

== ENCOUNTER → 2023-07-16 | Outpatient (CLI) | payer MEDICARE, OTHER ==
[~2023-07-16] VITALS: Ht 157.5 cm; Wt 53.5 kg
[~2023-07-16] MED LIST changes: -CYANOCOBALAMIN (B-12) 1000 MCG/1 ML VIAL IM ONE; -CYANOCOBALAMIN (B-12) 1000 MCG/1 ML VIAL ONE; +DAPA1TAB4 PO; +METF-370 PO
[2023-07-16 09:20] VITALS: BP 123/64; PULSE 73; RESP 16; O2SAT 95
[2023-07-16 09:36] VITALS: BP 136/61; PULSE 69; RESP 16; O2SAT 95
== END | disposition home or self-care (01) ==
LOC: Rad HDHVI 09:06
PROVIDERS: ATTEND Internal Medicine Cardiovascular Disease
DX: Z01.818 Encounter for other preprocedural examination (principal); R94.31 Abnormal electrocardiogram [ECG] [EKG]; I49.3 Ventricular premature depolarization; I25.118 Atherosclerotic heart disease of native coronary artery with other forms of angina pectoris; I50.33 Acute on chronic diastolic (congestive) heart failure; I49.5 Sick sinus syndrome; I48.0 Paroxysmal atrial fibrillation
CPT/HCPCS: 71046; 93005; G0463

== ENCOUNTER 2023-07-19 07:13 | Day surgery (SDC) | payer MEDICARE, OTHER ==
[2023-07-16 13:15] LABS: Basophils # (auto) 0.1 10 ^3/uL (0-0.2); Basophils % (auto) 0.9 % (0.0-2.0); Eosinophils # (auto) 0.2 10 ^3/uL (0-0.8); Eosinophils % (auto) 3.5 % (0.0-7.0); Hematocrit 32.9 % (36.0-46.0); Hemoglobin 10.8 g/dL (12.2-16.2); Lymphocytes # (auto) 0.7 10 ^3/uL (0.4-5.4); Lymphocytes % (auto) 12.4 % (10.0-50.0); Mean Corpuscular Hemoglobin 29.5 pg (28.0-32.0); Mean Corpuscular Hgb Conc. 32.8 g/dL (32.0-36.0); Mean Corpuscular Volume 90.1 fL (80.0-100.0); Monocytes # (auto) 0.6 10 ^3/uL (0-1.3); Monocytes % (auto) 10.1 % (0.0-12.0); Neutrophils # (auto) 4.3 10 ^3/uL (1.6-8.6); Neutrophils % (auto) 73.1 % (37.0-80.0); Red Blood Cells 3.65 10^6/uL (4.0-5.20); Red Cell Distribution Width 17.2 % (11.8-14.3); White Blood Cell 5.8 10^3/uL (4.4-10.8)
[2023-07-16 13:26] LABS: Chloride 98 mmol/L (98-107); Potassium 4.5 mmol/L (3.5-5.1); Sodium 133 mmol/L (136-145)
[2023-07-16 13:27] LABS: Anion Gap 6 (5-15); Carbon Dioxide 29 mmol/L (20-30); INR 1.09 (0.9-1.15); Partial Thromboplastin Time 33.3 SEC (24.5-34.5); Prothrombin Time 11.4 sec (9.3-11.8)
[2023-07-16 13:28] LABS: Calcium 10.3 mg/dL (8.5-10.1)
[2023-07-16 13:32] LABS: Glucose 108 mg/dL (74-106)
[2023-07-16 13:33] LABS: Blood Urea Nitrogen 13 mg/dL (9-23)
[2023-07-16 13:36] LABS: BUN/Creatinine Ratio 10.6 (10.0-20.0)
[2023-07-19] VITALS (11 sets, daily range): BP systolic 111–143; BP diastolic 58–71; PULSE 70–75; RESP 11–20; TEMP 97.1; O2SAT 93–100
[~2023-07-19] VITALS: Ht 157.5 cm; Wt 53.5 kg
[~2023-07-19 07:13] MED LIST changes: -DOX100T PO; -METF-372 PO
[2023-07-19] MEDS ORDERED: HEPARIN IN NS 1000Units/500mL 1,500 ML ONE (07:25)
[2023-07-19] MEDS ORDERED: LIDOCAINE 2%HCL (LOCAL ANESTH.) INJ 20ML MDV ONE (07:25)
[2023-07-19] MEDS ORDERED: IODIXANOL 320MG/ML 100ML BTL IV ONE (07:26)
[2023-07-19] MEDS ORDERED: ANGIOMAX 250 MG VIAL IV ONE (08:28)
[2023-07-19] MEDS ORDERED: SODIUM CHL 0.9% 50 ML ONE (08:28)
[2023-07-19] MEDS ORDERED: MIDAZOLAM HCL 2MG/2ML 2ml VIAL (1mg/ml) ONE (08:29)
[2023-07-19] MEDS ORDERED: fentaNYL CITRATE 100 MCG/2 ML VL ONE (08:29)
[2023-07-19] MEDS ORDERED: CLOPIDOGREL BISULFATE 75 MG TAB ONE (09:56)
== END 2023-07-19 14:50 | disposition home or self-care (01) ==
LOC: CATH 07:13
PROVIDERS: ATTEND Internal Medicine Cardiovascular Disease
DX: R94.39 Abnormal result of other cardiovascular function study (principal); G47.30 Sleep apnea, unspecified; J44.9 Chronic obstructive pulmonary disease, unspecified; I11.0 Hypertensive heart disease with heart failure; I50.9 Heart failure, unspecified; Z87.891 Personal history of nicotine dependence; Z82.49 Family history of ischemic heart disease and other diseases of the circulatory system; Z83.3 Family history of diabetes mellitus; Z98.51 Tubal ligation status; Z79.01 Long term (current) use of anticoagulants; Z79.899 Other long term (current) drug therapy
CPT/HCPCS: 36415; 80048; 85025; 85610; 85730; 93458; 93571; C1725; C1769; C1874; C1887; C1894; C9600; J0583; J1644; J2250; J3010; Q9967; 99152

== ENCOUNTER → 2023-09-19 | Outpatient (CLI) | payer MEDICARE, OTHER ==
[~2023-09-19] MED LIST changes: +ALBU108A5 IN; -APIX5TAB PO; +ASCO500T11 PO; +AZIT-185 PO; +BLOO-169 XX; +CEFP200T15 PO; +CLOP75TA70 PO; +MET25T PO; -METF-370 PO; +METF-929 PO; -METO25TA36 PO; -PIO30T PO; +POTA-215 PO
== END | disposition home or self-care (01) ==
LOC: Rad HDHVI 13:02
PROVIDERS: ATTEND Internal Medicine Cardiovascular Disease
DX: I70.0 Atherosclerosis of aorta (principal); R06.02 Shortness of breath; M47.814 Spondylosis without myelopathy or radiculopathy, thoracic region
CPT/HCPCS: 71046

== ENCOUNTER 2024-05-22 06:31 | Inpatient (IN) | payer MEDICARE, OTHER ==
[2024-05-22] VITALS (9 sets, daily range): BP systolic 93–139; BP diastolic 45–64; PULSE 76–113; RESP 16–22; TEMP 98–98.6; O2SAT 90–98
[~2024-05-22] VITALS: Ht 157.5 cm; Wt 60.4 kg
--- NOTE | 2024-05-22 06:55 | ECG ---
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
--- NOTE | 2024-05-22 07:08 | ED.PDOC ---
SOB-HPI HPI Comments 83Y F with PMHx DM, HTN, HLD, CHF, COPD, and pacemaker presents to ED via EMS for chief complaint SOB x2days with chest pain, productive cough, and congestion. Pt states her chest pain is present with breathing. Pt also says she has diarrhea, but that that is normal for her. Pt denies nausea, vomiting, and urinary symptoms. Chief Complaint: Chest Pain Time Seen by MD: 06:59 Primary Care Provider: Unknown Reviewed notes: Nurses Notes, Intraoperative Neuro Tech Notes, Medications, Allergies Information Source: Patient, Emergency Med Personnel Mode of Arrival: EMS Brought in by: EMS Severity: Moderate Timing: Days Duration: Since onset Context: At Rest PE Risk Factors: None History of: COPD, CHF Prehospital treatment: 12 Lead EKG, Breathing Tx Modifying Factors: Nothing Associated Signs and Symptoms: Cough, Nasal Congestion, Chest Pain Quality: Other Radiation: No Radiation Location: Substernal If cough with SOB: Productive Past Medical History PAST MEDICAL HISTORY: AFIB, CHF, COPD, DM, High Lipids, HTN Surgical History: BTL, Pacemaker 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: No Pertinent 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 Family History Family History: Family hx of DM, Family hx of HTN Social History Smoker: Cigarettes Alcohol: Denies ETOH Use Drugs: Denies Drug Use Lives In: Home Constitutional: denies: chills, diaphoresis, fatigue, fever, malaise, sweats, weakness, others EENTM: reports: nose congestion; denies: blurred vision, double vision, ear bleeding, ear discharge, ear drainage, ear pain, ear ringing, eye pain, eye redness, hearing loss, mouth pain, mouth swelling, nasal discharge, nose bleeding, nose pain, photophobia, tearing, throat pain, throat swelling, voice changes, others Respiratory: reports: cough, shortness of breath; denies: hemoptysis, orthopnea, SOB at rest, SOB with excertion, stridor, wheezing, others Cardiovascular: reports: chest pain; denies: dizzy spells, diaphoresis, Dyspnea on exertion, edema, irregular heart beat, left arm pain, lightheadedness, palpitations, PND, syncope, others Gastrointestinal: reports: diarrhea; denies: abdomen distended, abdominal pain, blood streaked bowels, constipated, dysphagia, difficulty swallowing, hematemesis, melena, nausea, poor appetite, poor fluid intake, rectal bleeding, rectal pain, vomiting, others Genitourinary: denies: abnormal vagina bleeding, burning, dyspareunia, dysuria, flank pain, frequency, hematuria, incontinence, pain, , vagina discharge, urgency, others Neurological: denies: dizziness, fainting, headache, left sided numbness, left sided weakness, numbness, paresthesia, pre-existing deficit, right sided numbness, right sided weakness, seizure, speech problems, tingling, tremors, weakness, others Musculoskeletal: denies: back pain, gout, joint pain, joint swelling, muscle pain, muscle stiffness, neck pain, others Integumetry: denies: bruises, change in color, change in hair/nails, dryness, laceration, lesions, lumps, rash, wounds, others Allergic/Immunocompromised: denies: Difficulty Healing, Frequent Infections, Hives, Itching, others Hematologic/Lymphatic: denies: anemia, blood clots, easy bleeding, easy bruising, swollen glands, others Endocrine: denies: excessive hunger, excessive sweating, excessive thirst, excessive urination, flushing, intolerance to cold, intolerance to heat, unexplained weight gain, unexplained weight loss, others Psychiatric: denies: anxiety, bipolar disorder, depression, hopeless, panic disorder, schizophrenia, sleepless, suicidal, others All Other Systems: Reviewed and Negative Physical Exam General Appearance: No Apparent Distress, Normal HEENT: Normal ENT Inspection, Pharynx Normal, TMs Normal Neck: Full Range of Motion, Non-Tender, Normal, Normal Inspection Respiratory: Chest Non-Tender, Other (tachypneic, coarse breath sounds, on oxygen supplementation) Cardiovascular: No Edema, No JVD, No Murmur, No Gallop, Normal Peripheral Pulses, Regular Rate/Rhythm Breast Exam: Deferred Gastrointestinal: No Organomegaly, Non Tender, No Pulsatile Mass, Normal Bowel Sounds, Soft Genitalia: Deferred Pelvic: Deferred Rectal: Deferred Extremities: No calf tenderness, Normal capillary refill, Normal inspection, Normal range of motion, Non-tender, No pedal edema Musculoskeletal : Apperance: Normal Neurologic: Alert, deodorizer operator II-XII nml as Tested, No Motor Deficits, Normal Affect, Normal Mood, No Sensory Deficits Cerebellar Function: NOT DONE Reflexes: NOT DONE Skin: Dry, Normal Color, Warm Lymphatic: No Adenopathy Was a procedure done? Was a procedure done?: No Differential Dx Differential Diagnosis: CHF, COPD, Pneumonia, URI X-Ray, Labs, Meds, VS Vital Signs Date Time Temp Pulse Resp B/P (MAP) Pulse Ox O2 Delivery O2 Flow Rate FiO2 05/22/24 07:57 81 05/22/24 07:55 83 22 93/45 (61) 93 05/22/24 07:55 83 22 93 Nasal Cannula* 4 36 05/22/24 06:53 89 05/22/24 06:41 98.6 110 38 105/58 (74) 96 Lab Test 05/22/24 08:42 05/22/24 08:15 05/22/24 06:58 Range/Units Troponin I High Sensitivity Pending 10 </=34 ng/L Influenza Type A Antigen Negative Negative Influenza Type B Antigen Negative Negative SARS-CoV-2 Antigen (Rapid) Negative NEGATIVE White Blood Count 10.2 4.4-10.8 10^3/uL Red Blood Count 4.39 4.0-5.20 10^6/uL Hemoglobin 12.4 12.2-16.2 g/dL Hematocrit 38.3 36.0-46.0 % Mean Corpuscular Volume 87.2 80.0-100.0 fL Mean Corpuscular Hemoglobin 28.2 28.0-32.0 pg Mean Corpuscular Hemoglobin Concent 32.3 32.0-36.0 g/dL Red Cell Distribution Width 18.1 H 11.8-14.3 % Platelet Count 352 140-450 10^3/uL Mean Platelet Volume 7.5 6.9-10.8 fL Neutrophils (%) (Auto) 80.7 H 37.0-80.0 % Lymphocytes (%) (Auto) 6.3 L 10.0-50.0 % Monocytes (%) (Auto) 12.7 H 0.0-12.0 % Eosinophils (%) (Auto) 0.1 0.0-7.0 % Basophils (%) (Auto) 0.2 0.0-2.0 % Neutrophils # (Auto) 8.2 1.6-8.6 10 ^3/uL Lymphocytes # (Auto) 0.6 0.4-5.4 10 ^3/uL Monocytes # (Auto) 1.3 0-1.3 10 ^3/uL Eosinophils # (Auto) 0 0-0.8 10 ^3/uL Basophils # (Auto) 0 0-0.2 10 ^3/uL Nucleated Red Blood Cells 0.1 % Sodium Level 132 L 136-145 mmol/L Potassium Level 4.2 3.5-5.1 mmol/L Chloride Level 100 98-107 mmol/L Carbon Dioxide Level 20 20-31 mmol/L Anion Gap 12 5-15 Blood Urea Nitrogen 34 H 9-23 mg/dL Creatinine 1.47 H 0.550-1.02 mg/dL Glomerular Filtration Rate Calc 35 >90 mL/min BUN/Creatinine Ratio 23.1 H 10.0-20.0 Serum Glucose 168 H 74-106 mg/dL Calcium Level 9.9 8.7-10.4 mg/dL B-Type Natriuretic Peptide Pending [place] [id number] Ph: [phone] DIAGNOSTIC IMAGING Diagnostic Imaging Report : [id number] Signed PATIENT: FLORENTINO PATRICK ACCT: [id number] UNIT: [id number] : 1940 LOC: ER ROOM / BED: / AGE / SEX: 83 / F ADM STATUS: REG ER SERVICE 0701 ORDERING PHYSICIAN: SYLVESTER JEWELL MD PROCEDURE(s): CXRP - CHEST PORTABLE REASON: sob ORDER NUMBER(s): [id number], ACCESSION NUMBER(s): [id number] CLINICAL INFORMATION: 83 years old, Female; shortness of breath. TECHNIQUE: Single AP portable chest radiograph was obtained. COMPARISON: XY CHEST PORTABLE on DOS: 08/20/23, XY CHEST XRAY 1 VIEW on DOS: 08/18/23, XY CHEST PORTABLE on DOS: 08/18/23 FINDINGS: Lungs: Atelectasis in the lung bases. No focal consolidation visualized. Chronic appearing interstitial opacities minimally changed. Cardiac: Heart size is within normal limits. ICD leads extend to the right atrium and right ventricle. Pulmonary vasculature: Unremarkable. Mediastinum/suyapa: Dense atherosclerotic calcification of the aortic arch. Bones: No acute osseous abnormality identified. Other: No other significant findings. IMPRESSION: No focal consolidation visualized. Likely chronic interstitial opacities, minimally changed compared to the prior exam. ATED BY: RANDY TERRELL DO DICTATED DATE/TIME: 05/22/24729 SIGNED BY: RANDY TERRELL DO SIGNED DATE/TIME: 05/22/24729 CC: Time of 1ST Reevaluation: 07:29 Reevaluation 1ST: Unchanged Patient Education/Counseling: Diagnosis, Treatment Family Education/Counseling: No Family Present Departure 1 Departure Time of Disposition: 09:40 (Patient presented with acute shortness of breath concerning for acute on chronic COPD Exacerbation, Pneumonia, ACS, CHF, P neumothorax. Less likely PE, Dissection. Data: 1. I ordered and reviewed the result of at least 3 labs including a CBC, BMP, and Troponin. 2. I independently interpreted the following tests: Chest X-ray shows .Risk:This patient has a high risk of morbidity due to further diagnostic testing or treatment and may suffer from respiratory or cardiac etiology . Workup reveals a likely COPD Exacerbation and patient should be admitted for further workup. and possible expert consultation.) Impression: Primary Impression: Acute and chronic respiratory failure Additional Impressions: COPD exacerbation Shortness of breath Disposition: 09 ADMITTED INPATIENT Admit to: Med Surg Condition: Serious Critical Care Note Critical Care Time?: No Stability Stability form required: No Heart Score Heart Score: Heart Score Response (Comments) Value History N/A 0 EKG N/A 0 Age N/A 0 Risk Factors N/A 0 Troponin N/A 0 Total 0 I personally scribed for SYLVESTER JEWELL MD ([email or web address]) on 05/22/24 at 07:08. Electronically submitted by Janneth Sosa ([employer]). I personally scribed for SYLVESTER JEWELL MD ([email or web address]) on 05/22/24 at 08:01. Electronically submitted by Janneth Sosa ([employer]). SYLVESTER JEWELL MD May 22, 2024 07:08
--- NOTE | 2024-05-22 07:33 | DVH ---
CLINICAL INFORMATION: 83 years old, Female; shortness of breath. TECHNIQUE: Single AP portable chest radiograph was obtained. COMPARISON: XY CHEST PORTABLE on DOS: 08/20/23, XY CHEST XRAY 1 VIEW on DOS: 08/18/23, XY CHEST PORTABLE on DOS: 08/18/23 FINDINGS: Lungs: Atelectasis in the lung bases. No focal consolidation visualized. Chronic appearing interstiti al opacities minimally changed. Cardiac: Heart size is within normal limits. ICD leads extend to the right atrium and right ventricle . Pulmonary vasculature: Unremarkable. Mediastinum/suyapa: Dense atherosclerotic calcification of the aortic arch. Bones: No acute osseous abnormality identified. Other: No other significant findings. IMPRESSION: No focal consolidation visualized. Likely chronic interstitial opacities, minimally changed compared to the prior exam.
[2024-05-22 08:15] LABS: Basophils # (auto) 0 10 ^3/uL (0-0.2); Basophils % (auto) 0.2 % (0.0-2.0); Eosinophils # (auto) 0 10 ^3/uL (0-0.8); Eosinophils % (auto) 0.1 % (0.0-7.0); Hematocrit 38.3 % (36.0-46.0); Hemoglobin 12.4 g/dL (12.2-16.2); Lymphocytes # (auto) 0.6 10 ^3/uL (0.4-5.4); Lymphocytes % (auto) 6.3 % (10.0-50.0); Mean Corpuscular Hemoglobin 28.2 pg (28.0-32.0); Mean Corpuscular Hgb Conc. 32.3 g/dL (32.0-36.0); Mean Corpuscular Volume 87.2 fL (80.0-100.0); Monocytes # (auto) 1.3 10 ^3/uL (0-1.3); Monocytes % (auto) 12.7 % (0.0-12.0); Neutrophils # (auto) 8.2 10 ^3/uL (1.6-8.6); Neutrophils % (auto) 80.7 % (37.0-80.0); Nucleated Red Blood Cells % 0.1 %; Platelet Count (auto) 352 10^3/uL (140-450); Red Blood Cells 4.39 10^6/uL (4.0-5.20); Red Cell Distribution Width 18.1 % (11.8-14.3); White Blood Cell 10.2 10^3/uL (4.4-10.8)
[2024-05-22 09:03] LABS: Chloride 100 mmol/L (98-107); Potassium 4.2 mmol/L (3.5-5.1)
[2024-05-22 09:04] LABS: Anion Gap 12 (5-15); Calcium 9.9 mg/dL (8.7-10.4)
[2024-05-22 09:07] LABS: Carbon Dioxide 20 mmol/L (20-31); Sodium 132 mmol/L (136-145)
[2024-05-22 09:09] LABS: BUN/Creatinine Ratio 23.1 (10.0-20.0)
[2024-05-22 09:11] LABS: COVID19 ANTIGEN SOFIA FIA NEGATIVE (NEGATIVE); Rapid Influenza A Negative (Negative); Rapid Influenza B Negative (Negative)
[2024-05-22 09:11] LABS: Blood Urea Nitrogen 34 mg/dL (9-23); Glucose 168 mg/dL (74-106)
--- NOTE | 2024-05-22 09:50 | DVHHP2 ---
Admitting Diagnosis: Shortness of breaths History of Present Illness 83Y F with PMHx DM, HTN, HLD, CHF, COPD, and pacemaker presents to ED via EMS for chief complaint SOB x2days with chest pain, productive cough, and congestion. Pt states her chest pain is present with breathing. Pt also says she has diarrhea, but that that is normal for her. Pt denies nausea, vomiting, and urinary symptoms. 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 SUPERVISOR SCRAP PREPARATION History Family History Family History: Family hx of DM, Family hx of HTN Social History Smoker: Cigarettes Alcohol: Denies ETOH Use Drugs: Denies Drug Use Lives In: Home Patient Family History: Diabetes mellitus G8 MOTHER G8 FATHER, Onset:Unknown Hypertension Allergies: Coded Allergies: NO KNOWN ALLERGIES (Unverified , 08/19/17) Home Meds Active Scripts Blood Glucose Monitoring Suppl (EASY TOUCH GLUCOSE MONITO) Monitor Kit, AC XX, #1 ACHS Prov:NICOLLE PRETTY RESIDENT 08/20/23 Clopidogrel Bisulfate (CLOPIDOGREL) 75 Mg Tab, 75 MG PO DAILY for 30 Days, #30 TAB Prov:NICOLLE PRETTY RESIDENT 08/20/23 Cefpodoxime Proxetil (Cefpodoxime Proxetil) 200 Mg Tab, 1 TAB PO BID for 3 Days, #6 TAB Prov:NICOLLE PRETTY [facility] 08/20/23 Azithromycin (ZITHROMAX TABLET) 250 Mg Tb, 250 MG PO DAILY for 3 Days, #3 TAB Prov:NICOLLE PRETTY [facility] 08/20/23 Ascorbic Acid (VITAMIN C TABLET) 500 Mg Tb, 500 MG PO BID for 30 Days, #60 TAB Prov:NICOLLE PRETTY RESIDENT 08/20/23 Reported Medications Albuterol Sulfate (Albuterol Sulfate Hfa) 108 Mcg/Act Aer, 2 PUFF IN Q6HP PRN for SHORTNESS OF BREATH, AER 08/03/23 Potassium Chloride (Klor-Con M10) 10 Meq Tab, 10 MEQ PO BID, TAB 08/03/23 Metoprolol Tartrate (Lopressor) 25 Mg Tb, 25 MG PO Q12HR, TAB 08/03/23 Metformin HCl (Metformin Hydrochloride) 1,000 Mg Tab, 1000 MG PO BID, TAB 3/15/24 Dapagliflozin Propanediol (Farxiga) 10 Mg Tab, 5 MG PO DAILY, TAB 07/16/23 Umeclidinium-Vilanterol (Anoro Ellipta 62.5-25 Mcg/INH) 1 Aer Aer, 1 AER IN, AER 02/09/23 Hydrochlorothiazide W/Triamter (Dyazide 37.5/25MG) 1 Cap Cp, 1 CAP PO DAILY 01/17/23 Amiodarone Hcl (Amiodarone Hcl) 200 Mg Tab, 200 MG PO DAILY for ARRYTHMIA 09/14/22 Nifedipine (Nifedipine ER) 30 Mg Tab, 1 TAB PO DAILY for HYPERTENSION 05/27/21 Donepezil Hydrochloride (DONEPEZIL HCL) 10 Mg Tab, 1 TAB PO DAILY@DINNER 05/27/21 Atorvastatin Calcium (Lipitor) 10 Mg Tab, 1 TAB PO QPM for HIGH CHOLESTEROL 05/27/21 Current Medications Current Medications Medications (Trade) Dose Ordered Sig/Long Route PRN Reason Start Time Stop Time Status Last Admin Sodium Chloride (Saline Lock Ns) 10 ml Q8HR IV 05/22/24 14:00 UNV Docusate Sodium (Colace Capsule) 100 mg BIDPRN PRN PO FOR CONSTIPATION 05/22/24 10:30 UNV Acetaminophen (Tylenol Tablet) 650 mg Q6HP PRN PO PAIN SCALE 1-3 OR TEMP>100.4 05/22/24 10:30 UNV Acetaminophen/ Hydrocodone Bitart (Homer 5/325MG Tab) 1 tab Q4HP PRN PO MODERATE PAIN (4-6 PAIN SCALE) 05/22/24 10:30 UNV Ondansetron HCl (Zofran) 4 mg Q4HP PRN IV NAUSEA / VOMITING 05/22/24 10:30 UNV Methylprednisolone Sodium Succinate (Solu Medrol) 60 mg Q6H IV 05/22/24 10:30 UNV Albuterol (Ventolin Medneb) 2.5 mg Q6H NEB 05/22/24 10:30 05/22/24 10:31 DC Ipratropium [place] (Atrovent Medneb) 0.5 mg Q6H NEB 05/22/24 10:30 05/22/24 10:31 DC Albuterol (Ventolin Medneb) 2.5 mg Q6H NEB 05/22/24 12:00 UNV Ipratropium [place] (Atrovent Medneb) 0.5 mg Q6H NEB 05/22/24 12:00 UNV Ascorbic Acid (Vitamin C Tablet) 500 mg BID PO 05/22/24 22:00 UNV Clopidogrel Bisulfate (Plavix) 75 mg DAILY PO 05/23/24 10:00 UNV Patient Own Medication 1 tab QPM PO 05/22/24 18:00 UNV Patient Own Medication 5 mg DAILY PO 05/23/24 10:00 UNV Patient Own Medication 1 tab DAILY@DINNER PO 05/22/24 17:30 UNV Vital Signs Vital Signs Date Time Temp Pulse Resp B/P (MAP) Pulse Ox O2 Delivery O2 Flow Rate FiO2 05/22/24 10:03 81 05/22/24 07:55 22 93/45 (61) 93 05/22/24 07:55 Nasal Cannula* 4 36 05/22/24 06:41 98.6 Physical Exam Generally 84 years old woman, well nourished well developed. Resting comfortably in bed. No apparent distress on nasal cannula HEENT-atraumatic normocephalic Heart-regular rate and rhythm Lungs coarse breath sounds, mild expiratory wheezing anterior and posterior lung hoskins Abdomen soft nontender nondistended Musculoskeletal-no edema cyanosis Neuro-awake, alert, answering questions. no focal deficits Results Labs Test 05/22/24 10:01 05/22/24 08:15 05/22/24 06:58 Range/Units Influenza Type A Antigen Negative Negative Influenza Type B Antigen Negative Negative SARS-CoV-2 Antigen (Rapid) Negative NEGATIVE White Blood Count 10.2 4.4-10.8 10^3/uL Red Blood Count 4.39 4.0-5.20 10^6/uL Hemoglobin 12.4 12.2-16.2 g/dL Hematocrit 38.3 36.0-46.0 % Mean Corpuscular Volume 87.2 80.0-100.0 fL Mean Corpuscular Hemoglobin 28.2 28.0-32.0 pg Mean Corpuscular Hemoglobin Concent 32.3 32.0-36.0 g/dL Red Cell Distribution Width 18.1 H 11.8-14.3 % Platelet Count 352 140-450 10^3/uL Mean Platelet Volume 7.5 6.9-10.8 fL Neutrophils (%) (Auto) 80.7 H 37.0-80.0 % Lymphocytes (%) (Auto) 6.3 L 10.0-50.0 % Monocytes (%) (Auto) 12.7 H 0.0-12.0 % Eosinophils (%) (Auto) 0.1 0.0-7.0 % Basophils (%) (Auto) 0.2 0.0-2.0 % Neutrophils # (Auto) 8.2 1.6-8.6 10 ^3/uL Lymphocytes # (Auto) 0.6 0.4-5.4 10 ^3/uL Monocytes # (Auto) 1.3 0-1.3 10 ^3/uL Eosinophils # (Auto) 0 0-0.8 10 ^3/uL Basophils # (Auto) 0 0-0.2 10 ^3/uL Nucleated Red Blood Cells 0.1 % Sodium Level 132 L 136-145 mmol/L Potassium Level 4.2 3.5-5.1 mmol/L Chloride Level 100 98-107 mmol/L Carbon Dioxide Level 20 20-31 mmol/L Anion Gap 12 5-15 Blood Urea Nitrogen 34 H 9-23 mg/dL Creatinine 1.47 H 0.550-1.02 mg/dL Glomerular Filtration Rate Calc 35 >90 mL/min BUN/Creatinine Ratio 23.1 H 10.0-20.0 Serum Glucose 168 H 74-106 mg/dL Calcium Level 9.9 8.7-10.4 mg/dL B-Type Natriuretic Peptide 359.52 0-100 pg/mL Primary Diagnosis Acute on chronic COPD exacerbation JEANIE versus Jeanie on CKD Plan BNP within normal limits, chest x-ray shows no pulmonary control Start Solu-Medrol 60 mg q.6 hours standing. When wheezing respiratory distress resolved, suture of the prednisone Albuterol and ipratropium q.6 standing. Oxygen supplementation for saturation goal greater than 90% PULM consult for acute on chronic COPD exacerbation Elevated creatinine. Check urine sodium, urine creatinine Renal ultrasound Nephrology consult Nephrotoxic medications Home antihypertensive and antiarrhythmic medication at this time in view of borderline hypotension Resume Eliquis for atrial fibrillation Full code Heparin for DVT prophylaxis PPI for GI prophylaxis while on steroids Cardiac diet Plan discussed with: Patient Problems List: (1) Acute kidney injury superimposed on CKD (2) Hypoxia Status: Acute (3) Acute and chronic respiratory failure Status: Acute (4) COPD exacerbation Status: Acute Date of Service: May 22, 2024 Billing Provider: FRANCES WHEELER MD Common Visit Codes: [id number] INP/OBS CARE (HIGH) FRANCES WHEELER MD May 22, 2024 09:50
[2024-05-22] MEDS ORDERED: ALBUTEROL SULF 2.5 MG/0.5ML(0.5%) NEB SOLN NEB SCH (10:30)
[2024-05-22] MEDS ORDERED: IPRATROPIUM BROM 0.5 MG/2.5ML INH SOL NEB SCH (10:30)
[2024-05-22] MEDS ORDERED: ACETAMINOPHEN 325 MG TAB PO PRN (10:30)
[2024-05-22] MEDS ORDERED: ONDANSETRON HCL 4 MG/2 ML VIAL IV PRN (10:30)
[2024-05-22] MEDS ORDERED: HYDROcodone-ACET 5/325MG TAB PO PRN (10:30)
[2024-05-22] MEDS: PANTOPRAZOLE 40 MG/10 ML VIAL INJ IV SCH (11:39)
[2024-05-22] MEDS: methylPREDNISolone SOD SUCC 125 MG/2 ML VL IV SCH (11:39)
[2024-05-22] MEDS: ALBUTEROL SULF 2.5 MG/0.5ML(0.5%) NEB SOLN NEB SCH (11:59)
[2024-05-22] MEDS: IPRATROPIUM BROM 0.5 MG/2.5ML INH SOL NEB SCH (11:59)
--- NOTE | 2024-05-22 12:10 | DVH ---
INDICATION: [place] on ckd TECHNIQUE: Multiple real-time sonographic images of the kidneys and bladder were obtained. COMPARISON: None FINDINGS: The right kidney measures 10.3 cm in length, which is normal in size. There is normal echogenicity of the right kidney. No hydronephrosis. The left kidney measures 9.8 cm in length, which is normal in size. There is normal echogenicity of t he left kidney. No hydronephrosis. No large intraluminal masses are seen in the bladder. Prior to voiding the bladder volume measures volume 104 cc. IMPRESSION: 1. Normal sonographic appearance of the kidneys. No hydronephrosis.
[2024-05-22] MEDS: APIXABAN 2.5 MG TAB PO SCH (13:13)
[2024-05-22] MEDS: SODIUM CHLOR 0.9% PF (SALINE LOCK) 10ML VIAL/SYR IV SCH (14:08)
[2024-05-22 17:21] LABS: Creatinine, Urine 110.98 mg/dL (30.0-125.0)
[2024-05-22 17:34] LABS: Sodium Urine < 10 mmol/L (40-220)
--- NOTE | 2024-05-22 18:37 | DVHINCON2 ---
Date of service: May 22, 2024 Referring Physician Laurent Rome MD Reason for Consultation Acute on chronic hypoxic respiratory failure and COPD exacerbation History of Present Illness An 83-year-old woman with past medical history of COPD, DM, hypertension, hyperlipidemia, CHF, and pacemaker who presents to ED via EMS with c/o shortness of breath x2 days with chest pain, productive cough, and congestion. Pt states her chest pain is present with breathing. She also reports diarrhea, but states that is normal for her. Pt denies nausea, vomiting, or urinary symptoms. Patient was admitted for further care and pulmonary consultation is requested for evaluation and management of acute on chronic hypoxic respiratory failure and COPD exacerbation. Review of Systems: 14-point review of systems negative unless otherwise noted above. Past Medical History: COPD, DM, hypertension, hyperlipidemia, CHF, AFib, and pacemaker Past Surgical History: BTL, Pacemaker Medications: Reviewed. Allergies: No known drug allergies. Family History: Hypertension, DM. Social History: Current smoker. No alcohol or illicit drug use. Family History: Diabetes mellitus G8 MOTHER G8 FATHER, Onset:Unknown Hypertension Allergies: Coded Allergies: NO KNOWN ALLERGIES (Unverified , 08/19/17) Home Meds Active Scripts Blood Glucose Monitoring Suppl (EASY TOUCH GLUCOSE MONITO) Monitor Kit, AC XX, #1 ACHS Prov:NICOLLE PRETTY RESIDENT 08/20/23 Clopidogrel Bisulfate (CLOPIDOGREL) 75 Mg Tab, 75 MG PO DAILY for 30 Days, #30 TAB Prov:NICOLLE PRETTY [facility] 08/20/23 Cefpodoxime Proxetil (Cefpodoxime Proxetil) 200 Mg Tab, 1 TAB PO BID for 3 Days, #6 TAB Prov:NICOLLE PRETTY [facility] 08/20/23 Azithromycin (ZITHROMAX TABLET) 250 Mg Tb, 250 MG PO DAILY for 3 Days, #3 TAB Prov:NICOLLE PRETTY [facility] 08/20/23 Ascorbic Acid (VITAMIN C TABLET) 500 Mg Tb, 500 MG PO BID for 30 Days, #60 TAB Prov:NICOLLE PRETTY [facility] 08/20/23 Reported Medications Albuterol Sulfate (Albuterol Sulfate Hfa) 108 Mcg/Act Aer, 2 PUFF IN Q6HP PRN for SHORTNESS OF BREATH, AER 08/03/23 Potassium Chloride (Klor-Con M10) 10 Meq Tab, 10 MEQ PO BID, TAB 08/03/23 Metoprolol Tartrate (Lopressor) 25 Mg Tb, 25 MG PO Q12HR, TAB 08/03/23 Metformin HCl (Metformin Hydrochloride) 1,000 Mg Tab, 1000 MG PO BID, TAB 08/03/23 Dapagliflozin Propanediol (Farxiga) 10 Mg Tab, 5 MG PO DAILY, TAB 07/16/23 Umeclidinium-Vilanterol (Anoro Ellipta 62.5-25 Mcg/INH) 1 Aer Aer, 1 AER IN, AER 02/09/23 Hydrochlorothiazide W/Triamter (Dyazide 37.5/25MG) 1 Cap Cp, 1 CAP PO DAILY 01/17/23 Amiodarone Hcl (Amiodarone Hcl) 200 Mg Tab, 200 MG PO DAILY for ARRYTHMIA 09/14/22 Nifedipine (Nifedipine ER) 30 Mg Tab, 1 TAB PO DAILY for HYPERTENSION 05/27/21 Donepezil Hydrochloride (DONEPEZIL HCL) 10 Mg Tab, 1 TAB PO DAILY@DINNER 05/27/21 Atorvastatin Calcium (Lipitor) 10 Mg Tab, 1 TAB PO QPM for HIGH CHOLESTEROL 05/27/21 Current Medications Current Medications Medications (Trade) Dose Ordered Sig/Long Route PRN Reason Start Time Stop Time Status Last Admin Sodium Chloride (Saline Lock Ns) 10 ml Q8HR IV 05/22/24 14:00 05/22/24 14:08 Docusate Sodium (Colace Capsule) 100 mg BIDPRN PRN PO FOR CONSTIPATION 05/22/24 10:30 Acetaminophen (Tylenol Tablet) 650 mg Q6HP PRN PO PAIN SCALE 1-3 OR TEMP>100.4 05/22/24 10:30 Acetaminophen/ Hydrocodone Bitart ([place] 5/325MG Tab) 1 tab Q4HP PRN PO MODERATE PAIN (4-6 PAIN SCALE) 05/22/24 10:30 Ondansetron HCl (Zofran) 4 mg Q4HP PRN IV NAUSEA / VOMITING 05/22/24 10:30 Methylprednisolone Sodium Succinate (Solu Medrol) 60 mg Q6H IV 05/22/24 10:30 05/22/24 17:05 Albuterol (Ventolin Medneb) 2.5 mg Q6H NEB 05/22/24 10:30 05/22/24 10:31 DC Ipratropium [place] (Atrovent Medneb) 0.5 mg Q6H NEB 05/22/24 10:30 05/22/24 10:31 DC Albuterol (Ventolin Medneb) 2.5 mg Q6H NEB 05/22/24 12:00 05/22/24 11:59 Ipratropium [place] (Atrovent Medneb) 0.5 mg Q6H NEB 05/22/24 12:00 05/22/24 11:59 Ascorbic Acid (Vitamin C Tablet) 500 mg BID PO 05/22/24 22:00 Clopidogrel Bisulfate (Plavix) 75 mg DAILY PO 05/23/24 10:00 Atorvastatin Calcium (Lipitor) 10 mg HS PO 05/22/24 22:00 Patient Own Medication 5 DAILY PO 05/23/24 10:00 Donepezil HCl (Aricept Tablet) 10 mg HS PO 05/22/24 22:00 Apixaban (Eliquis) 2.5 mg BID PO 05/22/24 10:45 05/22/24 13:13 Pantoprazole Sodium (Protonix) 40 mg DAILY IV 05/22/24 11:00 05/22/24 11:39 Artificial Tears (Tears Naturale) 2 drop Q6HP PRN EACHEYE DRY EYES 05/22/24 16:00 Vital Signs Vital Signs Date Time Temp Pulse Resp B/P (MAP) Pulse Ox O2 Delivery O2 Flow Rate FiO2 05/22/24 17:00 98.0 113 20 139/64 (89) 94 98.0 05/22/24 12:16 3.0 05/22/24 11:59 Nasal Cannula 05/22/24 11:59 32 Physical Exam Gen.: Patient lying in bed in no apparent distress. On supplemental oxygen. Head: Normocephalic, atraumatic. Eyes: EOMI/PERRLA. Ears: Normal hearing. Normal anatomy. Neck/trachea: Trachea midline, supple. Nose: Normal external anatomy. Mouth: Moist mucous membranes. Chest: Decreased air entry bilaterally. No wheezing or rhonchi. Cardiovascular: Positive S1, positive S2. Regular rate and rhythm. Abdomen: Positive bowel sounds in all 4 quadrants. Soft, non-tender, non-dis tended. : Deferred. Rectal: Deferred. Skin: Warm, dry. Intact. Extremities: 2+ radial pulses bilaterally. No lower extremity edema. Neuro: Awake, alert, oriented x3. No gross motor or sensory deficits. Cranial nerves II through XII intact. Gait not assessed. Labs/Diagnostic Data Labs Test 05/22/24 16:49 05/22/24 10:01 05/22/24 08:15 05/22/24 06:58 Range/Units Urine Creatinine 110.98 30.0-125.0 mg/dL Urine Sodium < 10 L 40-220 mmol/L Troponin I High Sensitivity 9 </=34 ng/L Influenza Type A Antigen Negative Negative Influenza Type B Antigen Negative Negative SARS-CoV-2 Antigen (Rapid) Negative NEGATIVE White Blood Count 10.2 4.4-10.8 10^3/uL Red Blood Count 4.39 4.0-5.20 10^6/uL Hemoglobin 12.4 12.2-16.2 g/dL Hematocrit 38.3 36.0-46.0 % Mean Corpuscular Volume 87.2 80.0-100.0 fL Mean Corpuscular Hemoglobin 28.2 28.0-32.0 pg Mean Corpuscular Hemoglobin Concent 32.3 32.0-36.0 g/dL Red Cell Distribution Width 18.1 H 11.8-14.3 % Platelet Count 352 140-450 10^3/uL Mean Platelet Volume 7.5 6.9-10.8 fL Neutrophils (%) (Auto) 80.7 H 37.0-80.0 % Lymphocytes (%) (Auto) 6.3 L 10.0-50.0 % Monocytes (%) (Auto) 12.7 H 0.0-12.0 % Eosinophils (%) (Auto) 0.1 0.0-7.0 % Basophils (%) (Auto) 0.2 0.0-2.0 % Neutrophils # (Auto) 8.2 1.6-8.6 10 ^3/uL Lymphocytes # (Auto) 0.6 0.4-5.4 10 ^3/uL Monocytes # (Auto) 1.3 0-1.3 10 ^3/uL Eosinophils # (Auto) 0 0-0.8 10 ^3/uL Basophils # (Auto) 0 0-0.2 10 ^3/uL Nucleated Red Blood Cells 0.1 % Sodium Level 132 L 136-145 mmol/L Potassium Level 4.2 3.5-5.1 mmol/L Chloride Level 100 98-107 mmol/L Carbon Dioxide Level 20 20-31 mmol/L Anion Gap 12 5-15 Blood Urea Nitrogen 34 H 9-23 mg/dL Creatinine 1.47 H 0.550-1.02 mg/dL Glomerular Filtration Rate Calc 35 >90 mL/min BUN/Creatinine Ratio 23.1 H 10.0-20.0 Serum Glucose 168 H 74-106 mg/dL Calcium Level 9.9 8.7-10.4 mg/dL B-Type Natriuretic Peptide 359.52 0-100 pg/mL Assessment Impression: Acute on chronic COPD exacerbation Dyspnea Acute on chronic hypoxic respiratory failure Dependence on supplemental oxygen Congestive heart failure Nicotine dependence Plan: Supplemental oxygen 3 LPM NC Titrate to keep O2 sats above 92%. Taper O2 as tolerated. Chest x-ray reviewed, notable for chronic interstitial opacities. Continue bronchodilators. Continue antibiotics IV steroids Incentive spirometry Monitor renal function. Monitor electrolytes. Supplement as necessary. Monitor ins and outs. DVT prophylaxis. Prognosis: Poor given patient's multiple co-morbidities. Rest of plan per hospitalist and other consultants. Thank you, Dr. Talamantes for allowing me to participate in this patient's care. Further recommendations will depend on the patient's clinical course. Please do not hesitate to contact me if you have any questions or concerns. This medical document was created using an electronic medical record system with [employer] dictation system. Although these documentations are being carefully reviewed, there may still be some phonetic and typographical changes. The errors are purely typographical, due to imperfection on the software program, and do not reflect any compromise in the patient's medical care. Plan discussed with: Patient, Other (BENSON Bowles/MD Rome) SNEHA KUMARI MD May 22, 2024 18:37
--- NOTE | 2024-05-22 18:54 | ECG ---
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
--- NOTE | 2024-05-22 18:54 | ECG ---
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
[2024-05-22] MEDS: DONEPEZIL HYDROCHLORIDE 5 MG TAB PO SCH (22:14)
[2024-05-22] MEDS: ATORVASTATIN 20 MG TAB PO SCH (22:15)
[2024-05-22] MEDS: ASCORBIC ACID 500 MG TAB PO SCH (22:15)
[2024-05-23] VITALS (20 sets, daily range): BP systolic 107–136; BP diastolic 51–73; PULSE 85–102; RESP 16–20; TEMP 97.6–98.4; O2SAT 90–99
[2024-05-23 07:21] LABS: Hematocrit 34.4 % (36.0-46.0); Hemoglobin 11.5 g/dL (12.2-16.2); Mean Corpuscular Hemoglobin 28.8 pg (28.0-32.0); Mean Corpuscular Hgb Conc. 33.5 g/dL (32.0-36.0); Mean Corpuscular Volume 85.9 fL (80.0-100.0); Platelet Count (auto) 381 10^3/uL (140-450); Red Blood Cells 4.01 10^6/uL (4.0-5.20); White Blood Cell 10.6 10^3/uL (4.4-10.8)
[2024-05-23 07:23] LABS: Anion Gap 11 (5-15); Carbon Dioxide 23 mmol/L (20-31); Chloride 101 mmol/L (98-107); Potassium 3.7 mmol/L (3.5-5.1)
[2024-05-23 07:25] LABS: Calcium 9.9 mg/dL (8.7-10.4)
[2024-05-23 07:28] LABS: Basophils % (manual) 0 (0.0-2.0); Blast Cells 0; Eosinophils % (manual) 0 (0-7); Metamyelocytes % 0; Myelocytes % 0; Promyelocytes % 0; Reactive Lymphocytes 0; Sodium 135 mmol/L (136-145)
[2024-05-23 07:30] LABS: BUN/Creatinine Ratio 26.1 (10.0-20.0)
[2024-05-23 07:31] LABS: Blood Urea Nitrogen 35 mg/dL (9-23); Glucose 216 mg/dL (74-106)
[2024-05-23] MEDS: SODIUM CHLORIDE 0.9% 1,000 ML IV SCH (10:00)
[2024-05-23] MEDS: CLOPIDOGREL BISULFATE 75 MG TAB PO SCH (11:13)
[2024-05-23] MEDS: DAPAGLIFLOZIN 5 MG PO SCH (11:13)
[2024-05-23] MEDS: ARTIFICIAL TEARS 15ml EACHEYE PRN (11:14)
[2024-05-23 11:53] LABS: Band Neutrophils % (manual) 9; Lymphocytes % (manual) 5 (10.0-50.0); Monocytes % (manual) 3 (0-12); Platelet Estimate Adequate
--- NOTE | 2024-05-23 13:02 | DVHINCON2 ---
Date of service: May 23, 2024 Reason for Consultation JEANIE History of Present Illness 83-year-old female past medical history of COPD, atrial fibrillation, coronary artery disease presents to the hospital complaining of shortness of breath and cough with wheezing. She reports with the wheezing caused chest tightness. She presents to the hospital for this reason. Nephrology consulted due to elevated creatinine level and low serum sodium level. Patient received nebulizer treatments and reports that she has clinically been improved Past Medical History copd htn, chf, Dm2 Allergies: Coded Allergies: NO KNOWN ALLERGIES (Unverified , 08/19/17) Home Meds Active Scripts Blood Glucose Monitoring Suppl (EASY TOUCH GLUCOSE MONITO) Monitor Kit, AC XX, #1 ACHS Prov:NICOLLE PRETTY RESIDENT 08/20/23 Clopidogrel Bisulfate (CLOPIDOGREL) 75 Mg Tab, 75 MG PO DAILY for 30 Days, #30 TAB Prov:FABRICE [facility]LE [facility] 08/20/23 Cefpodoxime Proxetil (Cefpodoxime Proxetil) 200 Mg Tab, 1 TAB PO BID for 3 Days, #6 TAB Prov:NICOLLE PRETTY [facility] 08/20/23 Azithromycin (ZITHROMAX TABLET) 250 Mg Tb, 250 MG PO DAILY for 3 Days, #3 TAB Prov:NICOLLE PRETTY [facility] 08/20/23 Ascorbic Acid (VITAMIN C TABLET) 500 Mg Tb, 500 MG PO BID for 30 Days, #60 TAB Prov:FABRICE P[facility]CENICOLLE [facility] RESIDENT 08/20/23 Reported Medications Albuterol Sulfate (Albuterol Sulfate Hfa) 108 Mcg/Act Aer, 2 PUFF IN Q6HP PRN for SHORTNESS OF BREATH, AER 08/03/23 Potassium Chloride (Klor-Con M10) 10 Meq Tab, 10 MEQ PO BID, TAB 08/03/23 Metoprolol Tartrate (Lopressor) 25 Mg Tb, 25 MG PO Q12HR, TAB 08/03/23 Metformin HCl (Metformin Hydrochloride) 1,000 Mg Tab, 1000 MG PO BID, TAB 08/03/23 Dapagliflozin Propanediol (Farxiga) 10 Mg Tab, 5 MG PO DAILY, TAB 07/16/23 Umeclidinium-Vilanterol (Anoro Ellipta 62.5-25 Mcg/INH) 1 Aer Aer, 1 AER IN, AER 02/09/23 Hydrochlorothiazide W/Triamter (Dyazide 37.5/25MG) 1 Cap Cp, 1 CAP PO DAILY 01/17/23 Amiodarone Hcl (Amiodarone Hcl) 200 Mg Tab, 200 MG PO DAILY for ARRYTHMIA 09/14/22 Nifedipine (Nifedipine ER) 30 Mg Tab, 1 TAB PO DAILY for HYPERTENSION 05/27/21 Donepezil Hydrochloride (DONEPEZIL HCL) 10 Mg Tab, 1 TAB PO DAILY@DINNER 05/27/21 Atorvastatin Calcium (Lipitor) 10 Mg Tab, 1 TAB PO QPM for HIGH CHOLESTEROL 05/27/21 Current Medications Current Medications Medications (Trade) Dose Ordered Sig/Long Route PRN Reason Start Time Stop Time Status Last Admin Sodium Chloride (Saline Lock Ns) 10 ml Q8HR IV 05/22/24 14:00 05/23/24 05:24 Ascorbic Acid (Vitamin C Tablet) 500 mg BID PO 05/22/24 22:00 05/23/24 11:12 Clopidogrel Bisulfate (Plavix) 75 mg DAILY PO 05/23/24 10:00 05/23/24 11:13 Atorvastatin Calcium (Lipitor) 10 mg HS PO 05/22/24 22:00 05/22/24 22:15 Patient Own Medication 5 DAILY PO 05/23/24 10:00 05/23/24 11:13 Donepezil HCl (Aricept Tablet) 10 mg HS PO 05/22/24 22:00 05/22/24 22:14 Artificial Tears (Tears Naturale) 2 drop Q6HP PRN EACHEYE DRY EYES 05/22/24 16:00 05/23/24 11:14 Sodium Chloride 1,000 ml @ 75 mls/hr [id number] IV 05/23/24 10:00 05/23/24 10:00 Family History: Diabetes mellitus G8 MOTHER G8 FATHER, Onset:Unknown Hypertension H&P Exam Vital Signs/I&O Vital Sign Date Time Temp Pulse Resp B/P (MAP) Pulse Ox O2 Delivery O2 Flow Rate FiO2 05/23/24 11:36 90 16 98 05/23/24 11:30 Nasal Cannula* 2 28 05/23/24 09:00 97.9 132/66 (88) 97.9 Intake and Output 05/22/24 05/23/24 19:00 07:00 Intake Total 100 ml 600 ml Output Total 500 ml Balance 100 ml 100 ml Intake Oral 100 ml 600 ml Output Urine Total 500 ml # Voids 1 Physical Exam Frail elderly white female Nonacute distress breathing nasal cannula No wheezing Irregular rate and rhythm Abdomen is soft No pitting edema Labs/Diagnostic Data Labs/Diagnostic Data Laboratory Tests Test 05/23/24 06:38 05/22/24 16:49 05/22/24 10:01 05/22/24 08:42 Range/Units White Blood Count 10.6 4.4-10.8 10^3/uL Red Blood Count 4.01 4.0-5.20 10^6/uL Hemoglobin 11.5 L 12.2-16.2 g/dL Hematocrit 34.4 #L 36.0-46.0 % Mean Corpuscular Volume 85.9 80.0-100.0 fL Mean Corpuscular Hemoglobin 28.8 28.0-32.0 pg Mean Corpuscular Hemoglobin Concent 33.5 32.0-36.0 g/dL Red Cell Distribution Width 18.0 H 11.8-14.3 % Platelet Count 381 140-450 10^3/uL Mean Platelet Volume 7.2 6.9-10.8 fL Neutrophils (%) (Auto) 37.0-80.0 % Lymphocytes (%) (Auto) 10.0-50.0 % Monocytes (%) (Auto) 0.0-12.0 % Basophils (%) (Auto) 0.0-2.0 % Neutrophils # (Auto) 1.6-8.6 10 ^3/uL Lymphocytes # (Auto) 0.4-5.4 10 ^3/uL Monocytes # (Auto) 0-1.3 10 ^3/uL Differential Total Cells Counted 100.0 100 Neutrophils % (Manual) 83 H 37.0-80.0 Band Neutrophils % (Manual) 9 Lymphocytes % (Manual) 5 L 10.0-50.0 Monocytes % (Manual) 3 0-12 Eosinophils % (Manual) 0 0-7 Basophils % (Manual) 0 0.0-2.0 Metamyelocytes % (manual) 0 Myelocytes % (Manual) 0 Promyelocytes % (Manual) 0 Blast Cells % (Manual) 0 Reactive Lymphocytes 0 Platelet Estimate Adequate Sodium Level 135 L 136-145 mmol/L Potassium Level 3.7 3.5-5.1 mmol/L Chloride Level 101 98-107 mmol/L Carbon Dioxide Level 23 20-31 mmol/L Anion Gap 11 5-15 Blood Urea Nitrogen 35 H 9-23 mg/dL Creatinine 1.34 H 0.550-1.02 mg/dL Glomerular Filtration Rate Calc 40 >90 mL/min BUN/Creatinine Ratio 26.1 H 10.0-20.0 Serum Glucose 216 H 74-106 mg/dL Calcium Level 9.9 8.7-10.4 mg/dL Urine Creatinine 110.98 30.0-125.0 mg/dL Urine Sodium < 10 L 40-220 mmol/L Troponin I High Sensitivity 9 10 </=34 ng/L Test 05/22/24 08:15 05/22/24 06:58 Range/Units Influenza Type A Antigen Negative Negative Influenza Type B Antigen Negative Negative SARS-CoV-2 Antigen (Rapid) Negative NEGATIVE White Blood Count 10.2 4.4-10.8 10^3/uL Red Blood Count 4.39 4.0-5.20 10^6/uL Hemoglobin 12.4 12.2-16.2 g/dL Hematocrit 38.3 36.0-46.0 % Mean Corpuscular Volume 87.2 80.0-100.0 fL Mean Corpuscular Hemoglobin 28.2 28.0-32.0 pg Mean Corpuscular Hemoglobin Concent 32.3 32.0-36.0 g/dL Red Cell Distribution Width 18.1 H 11.8-14.3 % Platelet Count 352 140-450 10^3/uL Mean Platelet Volume 7.5 6.9-10.8 fL Neutrophils (%) (Auto) 80.7 H 37.0-80.0 % Lymphocytes (%) (Auto) 6.3 L 10.0-50.0 % Monocytes (%) (Auto) 12.7 H 0.0-12.0 % Eosinophils (%) (Auto) 0.1 0.0-7.0 % Basophils (%) (Auto) 0.2 0.0-2.0 % Neutrophils # (Auto) 8.2 1.6-8.6 10 ^3/uL Lymphocytes # (Auto) 0.6 0.4-5.4 10 ^3/uL Monocytes # (Auto) 1.3 0-1.3 10 ^3/uL Eosinophils # (Auto) 0 0-0.8 10 ^3/uL Basophils # (Auto) 0 0-0.2 10 ^3/uL Nucleated Red Blood Cells 0.1 % Sodium Level 132 L 136-145 mmol/L Potassium Level 4.2 3.5-5.1 mmol/L Chloride Level 100 98-107 mmol/L Carbon Dioxide Level 20 20-31 mmol/L Anion Gap 12 5-15 Blood Urea Nitrogen 34 H 9-23 mg/dL Creatinine 1.47 H 0.550-1.02 mg/dL Glomerular Filtration Rate Calc 35 >90 mL/min BUN/Creatinine Ratio 23.1 H 10.0-20.0 Serum Glucose 168 H 74-106 mg/dL Calcium Level 9.9 8.7-10.4 mg/dL Troponin I High Sensitivity 10 </=34 ng/L B-Type Natriuretic Peptide 359.52 0-100 pg/mL Assessment Acute kidney injury hemodynamically mediated now resolved ckd 3b hyponatremia copd Atrial fibrillation Patient is status post IV fluid P.o. as tolerated Patient reports breathing is better with nebulizer treatments Clinically patient is not hypervolemic Avoid severe free water intake as this may trigger and inappropriate syndrome of anterior diuretic response however this time patient is clinically improving. No further recommendations at this time Plan discussed with: Patient POLO STEINER MD May 23, 2024 13:02
--- NOTE | 2024-05-23 14:06 | DVHPN2 ---
Progress Note - Dictate Date Seen: May 22, 2024 Medical Necessity Reason Pt with a Central, PICC or Fol: No Subjective PT WELL KNOWN TO ME SSS S/P PPI AFIB HYPERCOAGULABLE STATE PAH HFrEF CHRONIC EF 45% DIABETES NOW WITH SS COMPLEX OF SOB CXR CONSISTENT WITH INTERSTITIAL LUNG DISEASE COPD EXACERABATION PRODUCTIVE COUGH CONGESTION TROPONIN NEGATIVE BNP WNL vital signs Vital Sign Date Time Temp Pulse Resp B/P (MAP) Pulse Ox O2 Delivery O2 Flow Rate FiO2 05/23/24 11:36 90 16 98 05/23/24 11:30 Nasal Cannula* 2 28 05/23/24 09:00 97.9 132/66 (88) 97.9 Total Intake and Output 05/22/24 05/22/24 05/23/24 15:00 23:00 07:00 Intake Total 100 ml 600 ml Output Total 500 ml Balance 100 ml 100 ml medications Current Medications Medications Dose Ordered Sig/Long Route Start Time Stop Time Status Last Admin Dose Admin Sodium Chloride 10 ml Q8HR IV 05/22/24 14:00 05/23/24 05:24 10 ML Docusate Sodium 100 mg BIDPRN PRN PO 05/22/24 10:30 Acetaminophen 650 mg Q6HP PRN PO 05/22/24 10:30 Acetaminophen/ Hydrocodone Bitart 1 tab Q4HP PRN PO 05/22/24 10:30 Ondansetron HCl 4 mg Q4HP PRN IV 05/22/24 10:30 Methylprednisolone Sodium Succinate 60 mg Q6H IV 05/22/24 10:30 05/23/24 11:12 60 MG Albuterol 2.5 mg Q6H NEB 05/22/24 12:00 05/23/24 11:30 2.5 MG Ipratropium [place] 0.5 mg Q6H NEB 05/22/24 12:00 05/23/24 11:30 0.5 MG Ascorbic Acid 500 mg BID PO 05/22/24 22:00 05/23/24 11:12 500 MG Clopidogrel Bisulfate 75 mg DAILY PO 05/23/24 10:00 05/23/24 11:13 75 MG Atorvastatin Calcium 10 mg HS PO 05/22/24 22:00 05/22/24 22:15 10 MG Patient Own Medication 5 DAILY PO 05/23/24 10:00 05/23/24 11:13 5 Donepezil HCl 10 mg HS PO 05/22/24 22:00 05/22/24 22:14 10 MG Apixaban 2.5 mg BID PO 05/22/24 10:45 05/23/24 11:13 2.5 MG Pantoprazole Sodium 40 mg DAILY IV 05/22/24 11:00 05/23/24 11:12 40 MG Artificial Tears 2 drop Q6HP PRN EACHEYE 05/22/24 16:00 05/23/24 11:14 2 DROP Sodium Chloride 1,000 ml @ 75 mls/hr [id number] IV 05/23/24 10:00 05/23/24 10:00 75 MLS/HR laboratory and microbiology Laboratory Tests 05/23/24 06:38 Test 05/23/24 06:38 Range/Units Serum Glucose 216 H 74-106 mg/dL Problem List SSS S/P PPI PAH HFrEF CHRONIC EF 45% NOW WITH SS COMPLEX OF SOB CXR CONSISTENT WITH INTERSTITIAL LUNG DISEASE COPD EXACERABATION PRODUCTIVE COUGH CONGESTION TROPONIN NEGATIVE BNP WNL Assessment/Plan INHALER STEROIDS ABX START REVATIO 20 MG TID Plan discussed with: Patient WILEY SALINAS MD May 23, 2024 14:06
--- NOTE | 2024-05-23 14:06 | DVHPN2 ---
Progress Note - Dictate Date Seen: May 23, 2024 Medical Necessity Reason Pt with a Central, PICC or Fol: No Subjective PT WELL KNOWN TO ME SSS S/P PPI AFIB HYPERCOAGULABLE STATE PAH HFrEF CHRONIC EF 45% DIABETES NOW WITH SS COMPLEX OF SOB CXR CONSISTENT WITH INTERSTITIAL LUNG DISEASE COPD EXACERABATION PRODUCTIVE COUGH CONGESTION TROPONIN NEGATIVE BNP WNL vital signs Vital Sign Date Time Temp Pulse Resp B/P (MAP) Pulse Ox O2 Delivery O2 Flow Rate FiO2 05/23/24 11:36 90 16 98 05/23/24 11:30 Nasal Cannula* 2 28 05/23/24 09:00 97.9 132/66 (88) 97.9 Total Intake and Output 05/22/24 05/22/24 05/23/24 15:00 23:00 07:00 Intake Total 100 ml 600 ml Output Total 500 ml Balance 100 ml 100 ml medications Current Medications Medications Dose Ordered Sig/Long Route Start Time Stop Time Status Last Admin Dose Admin Sodium Chloride 10 ml Q8HR IV 05/22/24 14:00 05/23/24 05:24 10 ML Docusate Sodium 100 mg BIDPRN PRN PO 05/22/24 10:30 Acetaminophen 650 mg Q6HP PRN PO 05/22/24 10:30 Acetaminophen/ Hydrocodone Bitart 1 tab Q4HP PRN PO 05/22/24 10:30 Ondansetron HCl 4 mg Q4HP PRN IV 05/22/24 10:30 Methylprednisolone Sodium Succinate 60 mg Q6H IV 05/22/24 10:30 05/23/24 11:12 60 MG Albuterol 2.5 mg Q6H NEB 05/22/24 12:00 05/23/24 11:30 2.5 MG Ipratropium [place] 0.5 mg Q6H NEB 05/22/24 12:00 05/23/24 11:30 0.5 MG Ascorbic Acid 500 mg BID PO 05/22/24 22:00 05/23/24 11:12 500 MG Clopidogrel Bisulfate 75 mg DAILY PO 05/23/24 10:00 05/23/24 11:13 75 MG Atorvastatin Calcium 10 mg HS PO 05/22/24 22:00 05/22/24 22:15 10 MG Patient Own Medication 5 DAILY PO 05/23/24 10:00 05/23/24 11:13 5 Donepezil HCl 10 mg HS PO 05/22/24 22:00 05/22/24 22:14 10 MG Apixaban 2.5 mg BID PO 05/22/24 10:45 05/23/24 11:13 2.5 MG Pantoprazole Sodium 40 mg DAILY IV 05/22/24 11:00 05/23/24 11:12 40 MG Artificial Tears 2 drop Q6HP PRN EACHEYE 05/22/24 16:00 05/23/24 11:14 2 DROP Sodium Chloride 1,000 ml @ 75 mls/hr [id number] IV 05/23/24 10:00 05/23/24 10:00 75 MLS/HR laboratory and microbiology Laboratory Tests 05/23/24 06:38 Test 05/23/24 06:38 Range/Units Serum Glucose 216 H 74-106 mg/dL Problem List SSS S/P PPI PAH HFrEF CHRONIC EF 45% NOW WITH SS COMPLEX OF SOB CXR CONSISTENT WITH INTERSTITIAL LUNG DISEASE COPD EXACERABATION PRODUCTIVE COUGH CONGESTION TROPONIN NEGATIVE BNP WNL Assessment/Plan INHALER STEROIDS ABX START REVATIO 20 MG TID Plan discussed with: Patient WILEY SALINAS MD May 23, 2024 14:06
[2024-05-23] MEDS ORDERED: DEXTROSE (50%) 50ML SYRG IV PRN (15:00)
[2024-05-23 16:03] LABS: Urine Bacteria FEW /hpf (None Seen); Urine Blood Negative /uL (Negative); Urine Clarity Clear (Clear); Urine Color Light-Yellow (Yellow); Urine Protein, UAD Negative (Negative); Urine Specific Gravity 1.025 (1.001-1.035); Urine Squamous Epithelial Cell None Seen /hpf (<5); Urine Urobilinogen Normal (Negative); Urine WBC <1 /hpf (0 - 5)
[2024-05-23] MEDS: ACCU-CHEK COMFORT CURVE STRIP VI SCH (17:00)
[2024-05-23] MEDS: InsuLIN REG 1unit/0.01ml Soln (100units/ml) SC SCH ×2 (17:37→22:15)
--- NOTE | 2024-05-23 23:20 | DVHPN2 ---
Progress Note - Dictate Date Seen: May 23, 2024 Medical Necessity Reason Pt with a Central, PICC or Fol: No Subjective Patient seen and examined at bedside. Remains on supplemental oxygen Overnight events reviewed. vital signs Vital Sign Date Time Temp Pulse Resp B/P (MAP) Pulse Ox O2 Delivery O2 Flow Rate FiO2 05/23/24 21:00 97.6 95 20 123/58 (79) 91 97.6 05/23/24 18:38 Nasal Cannula* 2 28 Total Intake and Output 05/22/24 05/22/24 05/23/24 15:00 23:00 07:00 Intake Total 100 ml 600 ml Output Total 500 ml Balance 100 ml 100 ml medications Current Medications Medications Dose Ordered Sig/Long Route Start Time Stop Time Status Last Admin Dose Admin Sodium Chloride 10 ml Q8HR IV 05/22/24 14:00 05/23/24 21:55 10 ML Docusate Sodium 100 mg BIDPRN PRN PO 05/22/24 10:30 Acetaminophen 650 mg Q6HP PRN PO 05/22/24 10:30 Acetaminophen/ Hydrocodone Bitart 1 tab Q4HP PRN PO 05/22/24 10:30 Ondansetron HCl 4 mg Q4HP PRN IV 05/22/24 10:30 Methylprednisolone Sodium Succinate 60 mg Q6H IV 05/22/24 10:30 05/23/24 21:56 60 MG Albuterol 2.5 mg Q6H NEB 05/22/24 12:00 05/23/24 18:27 2.5 MG Ipratropium [place] 0.5 mg Q6H NEB 05/22/24 12:00 05/23/24 18:27 0.5 MG Ascorbic Acid 500 mg BID PO 05/22/24 22:00 05/23/24 21:57 500 MG Clopidogrel Bisulfate 75 mg DAILY PO 05/23/24 10:00 05/23/24 11:13 75 MG Atorvastatin Calcium 10 mg HS PO 05/22/24 22:00 05/23/24 21:58 10 MG Patient Own Medication 5 DAILY PO 05/23/24 10:00 05/23/24 11:13 5 Donepezil HCl 10 mg HS PO 05/22/24 22:00 05/23/24 21:57 10 MG Apixaban 2.5 mg BID PO 05/22/24 10:45 05/23/24 21:56 2.5 MG Pantoprazole Sodium 40 mg DAILY IV 05/22/24 11:00 05/23/24 11:12 40 MG Artificial Tears 2 drop Q6HP PRN EACHEYE 05/22/24 16:00 05/23/24 11:14 2 DROP Sodium Chloride 1,000 ml @ 75 mls/hr [id number] IV 05/23/24 10:00 05/23/24 10:00 75 MLS/HR Diagnostic Test (Pha) 1 strip ACHS 05/23/24 17:00 05/23/24 22:15 1 STRIP Insulin Human Regular HS SC 05/23/24 22:00 05/23/24 22:15 3 UNITS Insulin Human Regular AC SC 05/23/24 17:00 05/23/24 17:37 12 UNITS Dextrose 50 ml UD PRN IV 05/23/24 15:00 objective Gen.: Patient lying in bed in no apparent distress. On supplemental oxygen. Head: Normocephalic, atraumatic. Eyes: EOMI/PERRLA. Ears: Normal hearing. Normal anatomy. Neck/trachea: Trachea midline, supple. Nose: Normal external anatomy. Mouth: Moist mucous membranes. Chest: Decreased air entry bilaterally. Wheezing, improving. No rhonchi. Cardiovascular: Positive S1, positive S2. Regular rate and rhythm. Abdomen: Positive bowel sounds in all 4 quadrants. Soft, non-tender, non- distended. : Deferred. Rectal: Deferred. Skin: Warm, dry. Intact. Extremities: 2+ radial pulses bilaterally. No lower extremity edema. Neuro: Awake, alert, oriented x3. No gross motor or sensory deficits. Cranial nerves II through XII intact. Gait not assessed. laboratory and microbiology Laboratory Tests 05/23/24 06:38 Test 05/23/24 06:38 Range/Units Serum Glucose 216 H 74-106 mg/dL Assessment/Plan Impression: Acute on chronic COPD exacerbation Dyspnea Acute on chronic hypoxic respiratory failure Dependence on supplemental oxygen Congestive heart failure Nicotine dependence Events: Remains on supplemental oxygen, 2 LPM NC Taper O2 as tolerated Continue bronchodilators Continue steroids Continue antibiotics Incentive spirometry Wheezing improving. IV fluid hydration Labs and imaging reviewed. Rest of plan as noted below. Plan: Supplemental oxygen Titrate to keep O2 sats above 92%. Chest x-ray reviewed, notable for chronic interstitial opacities. Continue bronchodilators. Continue antibiotics IV steroids Incentive spirometry Monitor renal function. Monitor electrolytes. Supplement as necessary. Monitor ins and outs. DVT prophylaxis. Prognosis: Poor given patient's multiple co-morbidities. Rest of plan per hospitalist and other consultants. Thank you, Dr. Talamantes for allowing me to participate in this patient's care. Further recommendations will depend on the patient's clinical course. Please do not hesitate to contact me if you have any questions or concerns. This medical document was created using an electronic medical record system with [employer] dictation system. Although these documentations are being carefully reviewed, there may still be some phonetic and typographical changes. The errors are purely typographical, due to imperfection on the software program, and do not reflect any compromise in the patient's medical care. Plan discussed with: Patient, Other (BENSON Bowles) SNEHA KUMARI MD May 23, 2024 23:20
[2024-05-24] VITALS (18 sets, daily range): BP systolic 114–158; BP diastolic 61–79; PULSE 74–119; RESP 14–20; TEMP 97.6–98; O2SAT 90–100
[2024-05-24 08:06] LABS: Anion Gap 10 (5-15); Carbon Dioxide 24 mmol/L (20-31); Chloride 104 mmol/L (98-107); Sodium 138 mmol/L (136-145)
[2024-05-24 08:07] LABS: Calcium 9.9 mg/dL (8.7-10.4)
[2024-05-24 08:12] LABS: BUN/Creatinine Ratio 26.9 (10.0-20.0)
[2024-05-24 08:16] LABS: Blood Urea Nitrogen 28 mg/dL (9-23); Glucose 183 mg/dL (74-106); Potassium 2.9 mmol/L (3.5-5.1)
[2024-05-24] MEDS: POTASSIUM EFFERVESENT TAB 25 MEQ PO ONE ×3 (09:31→11:54)
--- NOTE | 2024-05-24 23:25 | DVHPN2 ---
Progress Note - Dictate Date Seen: May 24, 2024 Medical Necessity Reason Pt with a Central, PICC or Fol: No Subjective Patient seen and examined at bedside. Remains on supplemental oxygen Overnight events reviewed. vital signs Vital Sign Date Time Temp Pulse Resp B/P (MAP) Pulse Ox O2 Delivery O2 Flow Rate FiO2 05/24/24 21:00 97.7 112 18 130/79 (96) 93 97.7 05/24/24 20:00 Nasal Cannula* 3 32 Total Intake and Output 05/23/24 05/23/24 05/24/24 15:00 23:00 07:00 Intake Total 560 ml 800 ml Output Total 1200 ml Balance 560 ml -400 ml medications Current Medications Medications Dose Ordered Sig/Long Route Start Time Stop Time Status Last Admin Dose Admin Sodium Chloride 10 ml Q8HR IV 05/22/24 14:00 05/24/24 21:32 10 ML Docusate Sodium 100 mg BIDPRN PRN PO 05/22/24 10:30 Acetaminophen 650 mg Q6HP PRN PO 05/22/24 10:30 Acetaminophen/ Hydrocodone Bitart 1 tab Q4HP PRN PO 05/22/24 10:30 Ondansetron HCl 4 mg Q4HP PRN IV 05/22/24 10:30 Methylprednisolone Sodium Succinate 60 mg Q6H IV 05/22/24 10:30 05/24/24 21:33 60 MG Albuterol 2.5 mg Q6H NEB 05/22/24 12:00 05/24/24 18:25 2.5 MG Ipratropium [place] 0.5 mg Q6H NEB 05/22/24 12:00 05/24/24 18:25 0.5 MG Ascorbic Acid 500 mg BID PO 05/22/24 22:00 05/24/24 21:33 500 MG Clopidogrel Bisulfate 75 mg DAILY PO 05/23/24 10:00 05/24/24 09:20 75 MG Atorvastatin Calcium 10 mg HS PO 05/22/24 22:00 05/24/24 21:32 10 MG Patient Own Medication 5 DAILY PO 05/23/24 10:00 05/24/24 09:19 5 Donepezil HCl 10 mg HS PO 05/22/24 22:00 05/24/24 21:32 10 MG Apixaban 2.5 mg BID PO 05/22/24 10:45 05/24/24 21:33 2.5 MG Pantoprazole Sodium 40 mg DAILY IV 05/22/24 11:00 05/24/24 09:20 40 MG Artificial Tears 2 drop Q6HP PRN EACHEYE 05/22/24 16:00 05/24/24 03:36 2 DROP Sodium Chloride 1,000 ml @ 75 mls/hr [id number] IV 05/23/24 10:00 05/24/24 12:40 75 MLS/HR Diagnostic Test (Pha) 1 strip ACHS 05/23/24 17:00 05/24/24 21:33 1 STRIP Insulin Human Regular HS SC 05/23/24 22:00 05/24/24 21:42 8 UNITS Insulin Human Regular AC SC 05/23/24 17:00 05/24/24 17:30 2 UNITS Dextrose 50 ml UD PRN IV 05/23/24 15:00 objective Gen.: Patient lying in bed in no apparent distress. On supplemental oxygen. Head: Normocephalic, atraumatic. Eyes: EOMI/PERRLA. Ears: Normal hearing. Normal anatomy. Neck/trachea: Trachea midline, supple. Nose: Normal external anatomy. Mouth: Moist mucous membranes. Chest: Decreased air entry bilaterally. Wheezing, improving. No rhonchi. Cardiovascular: Positive S1, positive S2. Regular rate and rhythm. Abdomen: Positive bowel sounds in all 4 quadrants. Soft, non-tender, non- distended. : Deferred. Rectal: Deferred. Skin: Warm, dry. Intact. Extremities: 2+ radial pulses bilaterally. No lower extremity edema. Neuro: Awake, alert, oriented x3. No gross motor or sensory deficits. Cranial nerves II through XII intact. Gait not assessed. laboratory and microbiology Laboratory Tests 05/24/24 15:26 05/24/24 07:05 05/23/24 06:38 Test 05/24/24 07:05 Range/Units Serum Glucose 183 H 74-106 mg/dL Assessment/Plan Impression: Acute on chronic COPD exacerbation Dyspnea Acute on chronic hypoxic respiratory failure Dependence on supplemental oxygen Congestive heart failure Nicotine dependence Hypokalemia Events: Remains on supplemental oxygen, 3 LPM NC Taper O2 as tolerated Continue bronchodilators Continue steroids, tapered frequency to every 8 hours. Continue antibiotics Incentive spirometry Wheezing resolved IV fluid hydration Monitor renal function, creatinine now within normal limits. Supplement potassium Labs and imaging reviewed. Rest of plan as noted below. Plan: Supplemental oxygen Titrate to keep O2 sats above 92%. Chest x-ray reviewed, notable for chronic interstitial opacities. Continue bronchodilators. Continue antibiotics IV steroids Incentive spirometry Monitor renal function. Monitor electrolytes. Supplement as necessary. Monitor ins and outs. DVT prophylaxis. Prognosis: Poor given patient's multiple co-morbidities. Rest of plan per hospitalist and other consultants. Thank you, Dr. Talamantes for allowing me to participate in this patient's care. Further recommendations will depend on the patient's clinical course. Please do not hesitate to contact me if you have any questions or concerns. This medical document was created using an electronic medical record system with [employer] dictation system. Although these documentations are being carefully reviewed, there may still be some phonetic and typographical changes. The errors are purely typographical, due to imperfection on the software program, and do not reflect any compromise in the patient's medical care. Plan discussed with: Patient, Other (BENSON Lange MD) SNEHA KUMARI MD May 24, 2024 23:25
[2024-05-25] VITALS (15 sets, daily range): BP systolic 102–133; BP diastolic 52–88; PULSE 75–128; RESP 17–20; TEMP 96.9–98; O2SAT 89–97
[2024-05-25] MEDS: methylPREDNISolone SOD SUCC 125 MG/2 ML VL IV SCH (06:00)
--- NOTE | 2024-05-25 23:37 | DVHPN2 ---
Progress Note - Dictate Date Seen: May 25, 2024 Medical Necessity Reason Pt with a Central, PICC or Fol: No Subjective Patient seen and examined at bedside. Remains on supplemental oxygen Overnight events reviewed. vital signs Vital Sign Date Time Temp Pulse Resp B/P (MAP) Pulse Ox O2 Delivery O2 Flow Rate FiO2 05/25/24 21:41 111 18 97 05/25/24 21:31 Nasal Cannula* 4 36 05/25/24 21:00 97.7 123/52 (75) 97.7 Total Intake and Output 05/24/24 05/24/24 05/25/24 15:00 23:00 07:00 Intake Total 450 ml 1730 ml Output Total 825 ml Balance 450 ml 905 ml medications Current Medications Medications Dose Ordered Sig/Long Route Start Time Stop Time Status Last Admin Dose Admin Sodium Chloride 10 ml Q8HR IV 05/22/24 14:00 05/25/24 21:14 10 ML Docusate Sodium 100 mg BIDPRN PRN PO 05/22/24 10:30 Acetaminophen 650 mg Q6HP PRN PO 05/22/24 10:30 Acetaminophen/ Hydrocodone Bitart 1 tab Q4HP PRN PO 05/22/24 10:30 Ondansetron HCl 4 mg Q4HP PRN IV 05/22/24 10:30 Albuterol 2.5 mg Q6H NEB 05/22/24 12:00 05/25/24 21:31 2.5 MG Ipratropium [place] 0.5 mg Q6H NEB 05/22/24 12:00 05/25/24 21:31 0.5 MG Ascorbic Acid 500 mg BID PO 05/22/24 22:00 05/25/24 21:14 500 MG Clopidogrel Bisulfate 75 mg DAILY PO 05/23/24 10:00 05/25/24 10:52 75 MG Atorvastatin Calcium 10 mg HS PO 05/22/24 22:00 05/25/24 21:14 10 MG Patient Own Medication 5 DAILY PO 05/23/24 10:00 05/25/24 10:00 5 Donepezil HCl 10 mg HS PO 05/22/24 22:00 05/25/24 21:14 10 MG Apixaban 2.5 mg BID PO 05/22/24 10:45 05/25/24 21:14 2.5 MG Pantoprazole Sodium 40 mg DAILY IV 05/22/24 11:00 05/25/24 10:52 40 MG Artificial Tears 2 drop Q6HP PRN EACHEYE 05/22/24 16:00 05/25/24 10:58 2 DROP Sodium Chloride 1,000 ml @ 75 mls/hr [id number] IV 05/23/24 10:00 05/25/24 14:20 75 MLS/HR Diagnostic Test (Pha) 1 strip ACHS 05/23/24 17:00 05/25/24 21:16 1 STRIP Insulin Human Regular HS SC 05/23/24 22:00 05/25/24 21:23 4 UNITS Insulin Human Regular AC SC 05/23/24 17:00 05/25/24 12:09 9 UNITS Dextrose 50 ml UD PRN IV 05/23/24 15:00 Methylprednisolone Sodium Succinate 60 mg Q8HR IV 05/25/24 06:00 05/25/24 21:15 60 MG objective Gen.: Patient lying in bed in no apparent distress. On supplemental oxygen. Head: Normocephalic, atraumatic. Eyes: EOMI/PERRLA. Ears: Normal hearing. Normal anatomy. Neck/trachea: Trachea midline, supple. Nose: Normal external anatomy. Mouth: Moist mucous membranes. Chest: Decreased air entry bilaterally. No wheezing. No rhonchi. Cardiovascular: Positive S1, positive S2. Regular rate and rhythm. Abdomen: Positive bowel sounds in all 4 quadrants. Soft, non-tender, non- distended. : Deferred. Rectal: Deferred. Skin: Warm, dry. Intact. Extremities: 2+ radial pulses bilaterally. No lower extremity edema. Neuro: Awake, alert, oriented x3. No gross motor or sensory deficits. Cranial nerves II through XII intact. Gait not assessed. laboratory and microbiology Laboratory Tests 05/24/24 15:26 05/24/24 07:05 05/23/24 06:38 Test 05/24/24 07:05 Range/Units Serum Glucose 183 H 74-106 mg/dL Assessment/Plan Impression: Acute on chronic COPD exacerbation Dyspnea Acute on chronic hypoxic respiratory failure Dependence on supplemental oxygen Congestive heart failure Nicotine dependence Hypokalemia Events: Remains on supplemental oxygen, 4 LPM [place] Taper O2 as tolerated Continue bronchodilators Continue steroids, tapered frequency of Solu-Medrol to every 8 hours. Continue antibiotics Incentive spirometry On Eliquis IV fluid hydration - NS at 75 ml/hr. Labs and imaging reviewed. Rest of plan as noted below. Plan: Supplemental oxygen Titrate to keep O2 sats above 92%. Chest x-ray reviewed, notable for chronic interstitial opacities. Continue bronchodilators. Continue antibiotics IV steroids Incentive spirometry Monitor renal function. Monitor electrolytes. Supplement as necessary. Monitor ins and outs. DVT prophylaxis. Prognosis: Poor given patient's multiple co-morbidities. Rest of plan per hospitalist and other consultants. Thank you, Dr. Talamantes for allowing me to participate in this patient's care. Further recommendations will depend on the patient's clinical course. Please do not hesitate to contact me if you have any questions or concerns. This medical document was created using an electronic medical record system with [employer] dictation system. Although these documentations are being carefully reviewed, there may still be some phonetic and typographical changes. The errors are purely typographical, due to imperfection on the software program, and do not reflect any compromise in the patient's medical care. Plan discussed with: Patient, Other (BENSON Lozano) SNEHA KUMARI MD May 25, 2024 23:37
[2024-05-26] VITALS (17 sets, daily range): BP systolic 103–123; BP diastolic 52–77; PULSE 90–150; RESP 17–22; TEMP 97.6–98.6; O2SAT 85–98
--- NOTE | 2024-05-26 08:39 | DVHPN2 ---
Progress Note - Dictate Date Seen: May 24, 2024 Medical Necessity Reason Pt with a Central, PICC or Fol: No Subjective PT WELL KNOWN TO ME SSS S/P PPI AFIB HYPERCOAGULABLE STATE PAH HFrEF CHRONIC EF 45% DIABETES NOW WITH SS COMPLEX OF SOB CXR CONSISTENT WITH INTERSTITIAL LUNG DISEASE COPD EXACERABATION PRODUCTIVE COUGH CONGESTION TROPONIN NEGATIVE BNP WNL vital signs Vital Sign Date Time Temp Pulse Resp B/P (MAP) Pulse Ox O2 Delivery O2 Flow Rate FiO2 05/26/24 06:50 130 22 95 05/26/24 06:44 Nasal Cannula 4.0 05/26/24 06:44 36 05/26/24 05:00 97.6 114/73 (87) 97.6 Total Intake and Output 05/25/24 05/25/24 05/26/24 15:00 23:00 07:00 Intake Total 900 ml 550 ml 955 ml Output Total 450 ml 2300 ml Balance 900 ml 100 ml -1345 ml medications Current Medications Medications Dose Ordered Sig/Long Route Start Time Stop Time Status Last Admin Dose Admin Sodium Chloride 10 ml Q8HR IV 05/22/24 14:00 05/26/24 05:28 10 ML Docusate Sodium 100 mg BIDPRN PRN PO 05/22/24 10:30 Acetaminophen 650 mg Q6HP PRN PO 05/22/24 10:30 Acetaminophen/ Hydrocodone Bitart 1 tab Q4HP PRN PO 05/22/24 10:30 Ondansetron HCl 4 mg Q4HP PRN IV 05/22/24 10:30 Albuterol 2.5 mg Q6H NEB 05/22/24 12:00 05/26/24 06:44 2.5 MG Ipratropium [place] 0.5 mg Q6H NEB 05/22/24 12:00 05/26/24 06:44 0.5 MG Ascorbic Acid 500 mg BID PO 05/22/24 22:00 05/25/24 21:14 500 MG Clopidogrel Bisulfate 75 mg DAILY PO 05/23/24 10:00 05/25/24 10:52 75 MG Atorvastatin Calcium 10 mg HS PO 05/22/24 22:00 05/25/24 21:14 10 MG Patient Own Medication 5 DAILY PO 05/23/24 10:00 05/25/24 10:00 5 Donepezil HCl 10 mg HS PO 05/22/24 22:00 05/25/24 21:14 10 MG Apixaban 2.5 mg BID PO 05/22/24 10:45 05/25/24 21:14 2.5 MG Pantoprazole Sodium 40 mg DAILY IV 05/22/24 11:00 05/25/24 10:52 40 MG Artificial Tears 2 drop Q6HP PRN EACHEYE 05/22/24 16:00 05/25/24 10:58 2 DROP Sodium Chloride 1,000 ml @ 75 mls/hr [id number] IV 05/23/24 10:00 05/26/24 05:29 75 MLS/HR Diagnostic Test (Pha) 1 strip ACHS 05/23/24 17:00 05/26/24 05:29 1 STRIP Insulin Human Regular HS SC 05/23/24 22:00 05/25/24 21:23 4 UNITS Insulin Human Regular AC SC 05/23/24 17:00 05/26/24 05:35 2 UNITS Dextrose 50 ml UD PRN IV 05/23/24 15:00 Methylprednisolone Sodium Succinate 60 mg Q8HR IV 05/25/24 06:00 05/26/24 05:29 60 MG laboratory and microbiology Laboratory Tests 05/24/24 15:26 05/24/24 07:05 05/23/24 06:38 Test 05/24/24 07:05 Range/Units Serum Glucose 183 H 74-106 mg/dL Problem List SSS S/P PPI PAH HFrEF CHRONIC EF 45% NOW WITH SS COMPLEX OF SOB CXR CONSISTENT WITH INTERSTITIAL LUNG DISEASE COPD EXACERABATION PRODUCTIVE COUGH CONGESTION TROPONIN NEGATIVE BNP WNL Assessment/Plan INHALER STEROIDS ABX START REVATIO 20 MG TID Plan discussed with: Patient Critical Care Time(min): 35 WILEY SALINAS MD May 26, 2024 08:39
--- NOTE | 2024-05-26 08:43 | DVHPN2 ---
Progress Note - Dictate Date Seen: May 26, 2024 Medical Necessity Reason Pt with a Central, PICC or Fol: No Subjective PT WELL KNOWN TO ME SSS S/P PPI AFIB HYPERCOAGULABLE STATE PAH HFrEF CHRONIC EF 45% DIABETES NOW WITH SS COMPLEX OF SOB CXR CONSISTENT WITH INTERSTITIAL LUNG DISEASE COPD EXACERABATION PRODUCTIVE COUGH CONGESTION TROPONIN NEGATIVE BNP WNL vital signs Vital Sign Date Time Temp Pulse Resp B/P (MAP) Pulse Ox O2 Delivery O2 Flow Rate FiO2 05/26/24 06:50 130 22 95 05/26/24 06:44 Nasal Cannula 4.0 05/26/24 06:44 36 05/26/24 05:00 97.6 114/73 (87) 97.6 Total Intake and Output 05/25/24 05/25/24 05/26/24 15:00 23:00 07:00 Intake Total 900 ml 550 ml 955 ml Output Total 450 ml 2300 ml Balance 900 ml 100 ml -1345 ml medications Current Medications Medications Dose Ordered Sig/Long Route Start Time Stop Time Status Last Admin Dose Admin Sodium Chloride 10 ml Q8HR IV 05/22/24 14:00 05/26/24 05:28 10 ML Docusate Sodium 100 mg BIDPRN PRN PO 05/22/24 10:30 Acetaminophen 650 mg Q6HP PRN PO 05/22/24 10:30 Acetaminophen/ Hydrocodone Bitart 1 tab Q4HP PRN PO 05/22/24 10:30 Ondansetron HCl 4 mg Q4HP PRN IV 05/22/24 10:30 Albuterol 2.5 mg Q6H NEB 05/22/24 12:00 05/26/24 06:44 2.5 MG Ipratropium [place] 0.5 mg Q6H NEB 05/22/24 12:00 05/26/24 06:44 0.5 MG Ascorbic Acid 500 mg BID PO 05/22/24 22:00 05/25/24 21:14 500 MG Clopidogrel Bisulfate 75 mg DAILY PO 05/23/24 10:00 05/25/24 10:52 75 MG Atorvastatin Calcium 10 mg HS PO 05/22/24 22:00 05/25/24 21:14 10 MG Patient Own Medication 5 DAILY PO 05/23/24 10:00 05/25/24 10:00 5 Donepezil HCl 10 mg HS PO 05/22/24 22:00 05/25/24 21:14 10 MG Apixaban 2.5 mg BID PO 05/22/24 10:45 05/25/24 21:14 2.5 MG Pantoprazole Sodium 40 mg DAILY IV 05/22/24 11:00 05/25/24 10:52 40 MG Artificial Tears 2 drop Q6HP PRN EACHEYE 05/22/24 16:00 05/25/24 10:58 2 DROP Sodium Chloride 1,000 ml @ 75 mls/hr [id number] IV 05/23/24 10:00 05/26/24 05:29 75 MLS/HR Diagnostic Test (Pha) 1 strip ACHS 05/23/24 17:00 05/26/24 05:29 1 STRIP Insulin Human Regular HS SC 05/23/24 22:00 05/25/24 21:23 4 UNITS Insulin Human Regular AC SC 05/23/24 17:00 05/26/24 05:35 2 UNITS Dextrose 50 ml UD PRN IV 05/23/24 15:00 Methylprednisolone Sodium Succinate 60 mg Q8HR IV 05/25/24 06:00 05/26/24 05:29 60 MG laboratory and microbiology Laboratory Tests 05/24/24 15:26 05/24/24 07:05 05/23/24 06:38 Test 05/24/24 07:05 Range/Units Serum Glucose 183 H 74-106 mg/dL Problem List SSS S/P PPI PAH HFrEF CHRONIC EF 45% NOW WITH SS COMPLEX OF SOB CXR CONSISTENT WITH INTERSTITIAL LUNG DISEASE COPD EXACERABATION PRODUCTIVE COUGH CONGESTION TROPONIN NEGATIVE BNP WNL Assessment/Plan INHALER STEROIDS ABX START REVATIO 20 MG TID LASIX IV DC SOLUMEDROL DC IV FLUID CORRECT HYPOKALEMIA Plan discussed with: Patient Critical Care Time(min): 35 WILEY SALINAS MD May 26, 2024 08:43
[2024-05-26] MEDS: POTASSIUM CHL 20 Meq TABLET PO ONE (08:45)
[2024-05-26] MEDS: FUROSEMIDE 40 MG/4 ML VIAL IV ONE ×2 (09:04→10:11)
--- NOTE | 2024-05-26 09:10 | DVH ---
CLINICAL INFORMATION: 83 years old, Female; increased shortness of breath. TECHNIQUE: Single AP portable chest radiograph was obtained. COMPARISON: XY CHEST PORTABLE on DOS: 05/22/24, XY CHEST PORTABLE on DOS: 08/20/23, XY CHEST XRAY 1 VIEW on DOS: 08/18/23 FINDINGS: New extensive airspace opacities and interstitial opacities throughout the right lung, may be infecti ous or inflammatory in nature in the appropriate clinical setting. Ill-defined airspace opacities als o suspected in the left lung apex, appear to be new. Vertically oriented linear density in the latera l aspect of the right lung, most likely due to soft tissue fold, with lung markings seen beyond the d ensity. No other significant interval change. IMPRESSION: 1. Extensive airspace opacities and interstitial opacities throughout the right lung and suspected ne w ill-defined airspace opacities in the left lung apex. Findings may be infectious or inflammatory i n nature. Correlate with clinical findings. 2. Linear density along the lateral aspect of the right lung is most likely due to a prominent soft t issue fold, with lung markings seen beyond the linear density. Short interval repeat radiographs or C T could be obtained to further evaluate if clinically indicated.
[2024-05-26 10:13] LABS: Basophils # (auto) 0 10 ^3/uL (0-0.2); Basophils % (auto) 0.2 % (0.0-2.0); Eosinophils # (auto) 0 10 ^3/uL (0-0.8); Hematocrit 33.9 % (36.0-46.0); Hemoglobin 10.8 g/dL (12.2-16.2); Lymphocytes # (auto) 0.3 10 ^3/uL (0.4-5.4); Lymphocytes % (auto) 1.3 % (10.0-50.0); Mean Corpuscular Hemoglobin 27.9 pg (28.0-32.0); Mean Corpuscular Volume 87.2 fL (80.0-100.0); Monocytes # (auto) 0.7 10 ^3/uL (0-1.3); Monocytes % (auto) 3.7 % (0.0-12.0); Neutrophils # (auto) 19.1 10 ^3/uL (1.6-8.6); Neutrophils % (auto) 94.8 % (37.0-80.0); Nucleated Red Blood Cells % 0.1 %; Platelet Count (auto) 418 10^3/uL (140-450); Red Blood Cells 3.89 10^6/uL (4.0-5.20); Red Cell Distribution Width 18.4 % (11.8-14.3); White Blood Cell 20.1 10^3/uL (4.4-10.8)
[2024-05-26 10:19] LABS: Albumin 3.5 g/dL (3.2-4.8); Alkaline Phosphatase 95 U/L (46-116); Anion Gap 12 (5-15); Calcium 10.4 mg/dL (8.7-10.4); Chloride 104 mmol/L (98-107); Sodium 136 mmol/L (136-145)
[2024-05-26 10:20] LABS: Bilirubin, Total 0.6 mg/dL (0.2-1.0); Total Protein 5.8 g/dL (5.7-8.2)
[2024-05-26 10:47] LABS: Aspartate Aminotransferase 109 U/L (13-40); Blood Urea Nitrogen 37 mg/dL (9-23); Carbon Dioxide 20 mmol/L (20-31); Glucose 233 mg/dL (74-106)
[2024-05-26 10:48] LABS: Alanine Aminotransferase 117 U/L (7-40)
[2024-05-26 10:50] LABS: Potassium 5.6 mmol/L (3.5-5.1)
[2024-05-26] MEDS: predniSONE 20 MG TAB PO SCH (11:30)
[2024-05-26] MEDS: CALCIUM GLUC 1,000mg/50ml-NS 50 ML IV ONE (13:26)
--- NOTE | 2024-05-26 14:12 | ECG ---
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
--- NOTE | 2024-05-26 23:13 | DVHPN2 ---
Progress Note - Dictate Date Seen: May 26, 2024 Medical Necessity Reason Pt with a Central, PICC or Fol: No Subjective Patient seen and examined at bedside. Remains on supplemental oxygen Overnight events reviewed. vital signs Vital Sign Date Time Temp Pulse Resp B/P (MAP) Pulse Ox O2 Delivery O2 Flow Rate FiO2 05/26/24 17:00 98.6 109 20 103/57 (72) 98 98.6 05/26/24 12:00 Oxymizer 8 N/A Total Intake and Output 05/25/24 05/25/24 05/26/24 15:00 23:00 07:00 Intake Total 900 ml 550 ml 955 ml Output Total 450 ml 2300 ml Balance 900 ml 100 ml -1345 ml medications Current Medications Medications Dose Ordered Sig/Long Route Start Time Stop Time Status Last Admin Dose Admin Sodium Chloride 10 ml Q8HR IV 05/22/24 14:00 05/26/24 21:57 10 ML Docusate Sodium 100 mg BIDPRN PRN PO 05/22/24 10:30 Acetaminophen 650 mg Q6HP PRN PO 05/22/24 10:30 Acetaminophen/ Hydrocodone Bitart 1 tab Q4HP PRN PO 05/22/24 10:30 Ondansetron HCl 4 mg Q4HP PRN IV 05/22/24 10:30 Albuterol 2.5 mg Q6H NEB 05/22/24 12:00 05/26/24 19:32 2.5 MG Ipratropium [place] 0.5 mg Q6H NEB 05/22/24 12:00 05/26/24 19:32 0.5 MG Ascorbic Acid 500 mg BID PO 05/22/24 22:00 05/26/24 21:57 500 MG Clopidogrel Bisulfate 75 mg DAILY PO 05/23/24 10:00 05/26/24 11:30 75 MG Atorvastatin Calcium 10 mg HS PO 05/22/24 22:00 05/26/24 21:57 10 MG Patient Own Medication 5 DAILY PO 05/23/24 10:00 05/26/24 11:31 5 Donepezil HCl 10 mg HS PO 05/22/24 22:00 05/26/24 21:57 10 MG Apixaban 2.5 mg BID PO 05/22/24 10:45 05/26/24 21:57 2.5 MG Pantoprazole Sodium 40 mg DAILY IV 05/22/24 11:00 05/26/24 09:03 40 MG Artificial Tears 2 drop Q6HP PRN EACHEYE 05/22/24 16:00 05/26/24 22:20 2 DROP Diagnostic Test (Pha) 1 strip ACHS 05/23/24 17:00 05/26/24 21:59 1 STRIP Insulin Human Regular HS SC 05/23/24 22:00 05/26/24 22:06 4 UNITS Insulin Human Regular AC SC 05/23/24 17:00 05/26/24 17:00 9 UNITS Dextrose 50 ml UD PRN IV 05/23/24 15:00 Prednisone 40 mg DAILY PO 05/26/24 10:00 05/26/24 11:30 40 MG objective Gen.: Patient lying in bed in no apparent distress. On supplemental oxygen. Head: Normocephalic, atraumatic. Eyes: EOMI/PERRLA. Ears: Normal hearing. Normal anatomy. Neck/trachea: Trachea midline, supple. Nose: Normal external anatomy. Mouth: Moist mucous membranes. Chest: Decreased air entry bilaterally. No wheezing. No rhonchi. Crackles present. Cardiovascular: Positive S1, positive S2. Regular rate and rhythm. Abdomen: Positive bowel sounds in all 4 quadrants. Soft, non-tender, non- distended. : Deferred. Rectal: Deferred. Skin: Warm, dry. Intact. Extremities: 2+ radial pulses bilaterally. No lower extremity edema. Neuro: Awake, alert, oriented x3. No gross motor or sensory deficits. Cranial nerves II through XII intact. Gait not assessed. laboratory and microbiology Laboratory Tests 05/26/24 09:35 Test 05/26/24 09:35 Range/Units Serum Glucose 233 H 74-106 mg/dL Assessment/Plan Impression: Acute on chronic COPD exacerbation Dyspnea Acute on chronic hypoxic respiratory failure Dependence on supplemental oxygen Congestive heart failure Nicotine dependence Hypokalemia Events: Remains on supplemental oxygen, 4 LPM Oxymizer Taper O2 as tolerated Continue bronchodilators Incentive spirometry On Eliquis Lasix for diuresis Monitor renal function [place] for strict ins and outs Labs and imaging reviewed. Rest of plan as noted below. Plan: Supplemental oxygen Titrate to keep O2 sats above 92%. Chest x-ray reviewed, notable for chronic interstitial opacities. Continue bronchodilators. Continue steroids Incentive spirometry Monitor renal function. Monitor electrolytes. Supplement as necessary. Monitor ins and outs. DVT prophylaxis. Prognosis: Poor given patient's multiple co-morbidities. Rest of plan per hospitalist and other consultants. Thank you, Dr. Talamantes for allowing me to participate in this patient's care. Further recommendations will depend on the patient's clinical course. Please do not hesitate to contact me if you have any questions or concerns. This medical document was created using an electronic medical record system with [employer] dictation system. Although these documentations are being carefully reviewed, there may still be some phonetic and typographical changes. The errors are purely typographical, due to imperfection on the software program, and do not reflect any compromise in the patient's medical care. Plan discussed with: Patient, Other (BENSON Flores) SNEHA KUMARI MD May 26, 2024 23:13
[2024-05-27] VITALS (19 sets, daily range): BP systolic 100–120; BP diastolic 58–72; PULSE 85–105; RESP 16–20; TEMP 98–98.7; O2SAT 93–100
--- NOTE | 2024-05-27 14:37 | DVHPN2 ---
Progress Note - Dictate Date Seen: May 27, 2023 Medical Necessity Reason Pt with a Central, PICC or Fol: No Subjective PT WELL KNOWN TO ME SSS S/P PPI AFIB HYPERCOAGULABLE STATE PAH HFrEF CHRONIC EF 45% DIABETES NOW WITH SS COMPLEX OF SOB CXR CONSISTENT WITH INTERSTITIAL LUNG DISEASE COPD EXACERABATION PRODUCTIVE COUGH CONGESTION TROPONIN NEGATIVE BNP WNL vital signs Vital Sign Date Time Temp Pulse Resp B/P (MAP) Pulse Ox O2 Delivery O2 Flow Rate FiO2 05/27/24 13:00 98.1 105 20 102/58 (73) 93 98.1 05/27/24 11:48 Oxymizer 6 N/A Total Intake and Output 05/26/24 05/26/24 05/27/24 14:59 22:59 06:59 Intake Total 50 ml 1000 ml 850 ml Output Total 1350 ml 200 ml Balance 50 ml -350 ml 650 ml medications Current Medications Medications Dose Ordered Sig/Long Route Start Time Stop Time Status Last Admin Dose Admin Sodium Chloride 10 ml Q8HR IV 05/22/24 14:00 05/27/24 06:15 10 ML Docusate Sodium 100 mg BIDPRN PRN PO 05/22/24 10:30 Acetaminophen 650 mg Q6HP PRN PO 05/22/24 10:30 Acetaminophen/ Hydrocodone Bitart 1 tab Q4HP PRN PO 05/22/24 10:30 Ondansetron HCl 4 mg Q4HP PRN IV 05/22/24 10:30 Albuterol 2.5 mg Q6H NEB 05/22/24 12:00 05/27/24 11:48 2.5 MG Ipratropium [place] 0.5 mg Q6H NEB 05/22/24 12:00 05/27/24 11:48 0.5 MG Ascorbic Acid 500 mg BID PO 05/22/24 22:00 05/27/24 10:25 500 MG Clopidogrel Bisulfate 75 mg DAILY PO 05/23/24 10:00 05/27/24 10:25 75 MG Atorvastatin Calcium 10 mg HS PO 05/22/24 22:00 05/26/24 21:57 10 MG Patient Own Medication 5 DAILY PO 05/23/24 10:00 05/27/24 10:26 5 Donepezil HCl 10 mg HS PO 05/22/24 22:00 05/26/24 21:57 10 MG Apixaban 2.5 mg BID PO 05/22/24 10:45 05/27/24 10:25 2.5 MG Pantoprazole Sodium 40 mg DAILY IV 05/22/24 11:00 05/27/24 10:25 40 MG Artificial Tears 2 drop Q6HP PRN EACHEYE 05/22/24 16:00 05/26/24 22:20 2 DROP Diagnostic Test (Pha) 1 strip ACHS 05/23/24 17:00 05/27/24 11:30 1 STRIP Insulin Human Regular HS SC 05/23/24 22:00 05/26/24 22:06 4 UNITS Insulin Human Regular AC SC 05/23/24 17:00 05/27/24 11:30 9 UNITS Dextrose 50 ml UD PRN IV 05/23/24 15:00 Prednisone 40 mg DAILY PO 05/26/24 10:00 05/27/24 10:25 40 MG Ceftriaxone Sodium 50 ml @ 100 mls/hr DAILY@09 IV 05/27/24 21:00 Enteral Nutritional Formula 240 ml TIDWM PO 05/27/24 18:00 laboratory and microbiology Laboratory Tests 05/26/24 09:35 Test 05/26/24 09:35 Range/Units Serum Glucose 233 H 74-106 mg/dL Problem List SSS S/P PPI PAH HFrEF CHRONIC EF 45% NOW WITH SS COMPLEX OF SOB CXR CONSISTENT WITH INTERSTITIAL LUNG DISEASE COPD EXACERABATION PRODUCTIVE COUGH CONGESTION TROPONIN NEGATIVE BNP WNL Assessment/Plan INHALER STEROIDS ABX START REVATIO 20 MG TID LASIX IV DC SOLUMEDROL DC IV FLUID CORRECT HYPOKALEMIA ANOTHER DOSE OF LASIX CORRECT K ENSURE PHYSICAL THERAPY Plan discussed with: Patient WILEY SALINAS MD May 27, 2024 14:37
[2024-05-27] MEDS: FUROSEMIDE 40 MG/4 ML VIAL IV ONE (14:40)
--- NOTE | 2024-05-27 14:48 | DVH ---
CHEST RADIOGRAPH Indication: SOB Technique: Single frontal view of the chest was obtained Comparison: XY CHEST XRAY 1 VIEW on DOS: 05/26/24, XY CHEST PORTABLE on DOS: 05/22/24, XY CHEST PORTABLE on DOS: 08/20/23 FINDINGS: Lines and Tubes: None Lungs: Interval improvement in the extensive interstitial and alveolar type opacities of right lung r elatively unchanged mild interstitial opacities of the left lung. Hyperinflation of the lungs. Pleura: No effusion. No pneumothorax. Cardiomediastinal contours: Unremarkable Bones: No acute osseous abnormality. IMPRESSION: Slight interval improvement in the extensive interstitial and alveolar type opacities of the right elmer ng with unchanged mild interstitial opacities of the left lung.
[2024-05-27] MEDS: cefTRIAXone 1GM/50ML D5W 50 ML IV SCH (18:20)
[2024-05-27] MEDS: Glucerna Carbsteady SHAKE Vanilla 8oz PO SCH (18:26)
[2024-05-27] MEDS ORDERED: CYCLOPENTOLATE HCL 1% OPTH(EYE) SOL 2ML EACHEYE ONE (22:00)
--- NOTE | 2024-05-27 22:43 | DVHPN2 ---
Progress Note - Dictate Date Seen: May 27, 2024 Medical Necessity Reason Pt with a Central, PICC or Fol: No Subjective Patient seen and examined at bedside. Remains on supplemental oxygen Overnight events reviewed. vital signs Vital Sign Date Time Temp Pulse Resp B/P (MAP) Pulse Ox O2 Delivery O2 Flow Rate FiO2 05/27/24 21:00 98.6 100 20 115/70 (85) 99 98.6 05/27/24 19:40 Oxymizer 6 N/A Total Intake and Output 05/26/24 05/26/24 05/27/24 15:00 23:00 07:00 Intake Total 50 ml 1000 ml 850 ml Output Total 1350 ml 200 ml Balance 50 ml -350 ml 650 ml medications Current Medications Medications Dose Ordered Sig/Long Route Start Time Stop Time Status Last Admin Dose Admin Sodium Chloride 10 ml Q8HR IV 05/22/24 14:00 05/27/24 21:41 10 ML Docusate Sodium 100 mg BIDPRN PRN PO 05/22/24 10:30 Acetaminophen 650 mg Q6HP PRN PO 05/22/24 10:30 Acetaminophen/ Hydrocodone Bitart 1 tab Q4HP PRN PO 05/22/24 10:30 Ondansetron HCl 4 mg Q4HP PRN IV 05/22/24 10:30 Albuterol 2.5 mg Q6H NEB 05/22/24 12:00 05/27/24 19:40 2.5 MG Ipratropium [place] 0.5 mg Q6H NEB 05/22/24 12:00 05/27/24 19:40 0.5 MG Ascorbic Acid 500 mg BID PO 05/22/24 22:00 05/27/24 21:32 500 MG Clopidogrel Bisulfate 75 mg DAILY PO 05/23/24 10:00 05/27/24 10:25 75 MG Atorvastatin Calcium 10 mg HS PO 05/22/24 22:00 05/27/24 21:32 10 MG Patient Own Medication 5 DAILY PO 05/23/24 10:00 05/27/24 10:26 5 Donepezil HCl 10 mg HS PO 05/22/24 22:00 05/27/24 21:32 10 MG Apixaban 2.5 mg BID PO 05/22/24 10:45 05/27/24 21:32 2.5 MG Pantoprazole Sodium 40 mg DAILY IV 05/22/24 11:00 05/27/24 10:25 40 MG Artificial Tears 2 drop Q6HP PRN EACHEYE 05/22/24 16:00 05/26/24 22:20 2 DROP Diagnostic Test (Pha) 1 strip ACHS 05/23/24 17:00 05/27/24 21:33 1 STRIP Insulin Human Regular HS SC 05/23/24 22:00 05/27/24 21:46 8 UNITS Insulin Human Regular AC SC 05/23/24 17:00 05/27/24 18:22 2 UNITS Dextrose 50 ml UD PRN IV 05/23/24 15:00 Prednisone 40 mg DAILY PO 05/26/24 10:00 05/27/24 10:25 40 MG Ceftriaxone Sodium 50 ml @ 100 mls/hr DAILY@09 IV 05/27/24 21:00 05/27/24 20:27 100 MLS/HR Enteral Nutritional Formula 240 ml TIDWM PO 05/27/24 18:00 05/27/24 18:26 240 ML Cyclopentolate HCl 1 drop BID EACHEYE 05/28/24 10:00 objective Gen.: Patient lying in bed in no apparent distress. On supplemental oxygen. Head: Normocephalic, atraumatic. Eyes: EOMI/PERRLA. Ears: Normal hearing. Normal anatomy. Neck/trachea: Trachea midline, supple. Nose: Normal external anatomy. Mouth: Moist mucous membranes. Chest: Decreased air entry bilaterally. No wheezing. No rhonchi. Crackles present. Cardiovascular: Positive S1, positive S2. Regular rate and rhythm. Abdomen: Positive bowel sounds in all 4 quadrants. Soft, non-tender, non- distended. : Deferred. Rectal: Deferred. Skin: Warm, dry. Intact. Extremities: 2+ radial pulses bilaterally. No lower extremity edema. Neuro: Awake, alert, oriented x3. No gross motor or sensory deficits. Cranial nerves II through XII intact. Gait not assessed. laboratory and microbiology Laboratory Tests 05/26/24 09:35 Test 05/26/24 09:35 Range/Units Serum Glucose 233 H 74-106 mg/dL Assessment/Plan Impression: Acute on chronic COPD exacerbation Dyspnea Acute on chronic hypoxic respiratory failure Dependence on supplemental oxygen Congestive heart failure Nicotine dependence Hypokalemia Events: Remains on supplemental oxygen, 4 LPM Oxymizer Taper O2 as tolerated Continue bronchodilators Continue antibiotics Complete prednisone course Incentive spirometry On [place] Received one dose Lasix Monitor renal function [place] for strict ins and outs Labs and imaging reviewed. Rest of plan as noted below. Plan: Supplemental oxygen Titrate to keep O2 sats above 92%. Chest x-ray reviewed, notable for chronic interstitial opacities. Continue bronchodilators. Continue steroids Incentive spirometry Monitor renal function. Monitor electrolytes. Supplement as necessary. Monitor ins and outs. DVT prophylaxis. Prognosis: Poor given patient's multiple co-morbidities. Rest of plan per hospitalist and other consultants. Thank you, Dr. Talamantes for allowing me to participate in this patient's care. Further recommendations will depend on the patient's clinical course. Please do not hesitate to contact me if you have any questions or concerns. This medical document was created using an electronic medical record system with [employer] dictation system. Although these documentations are being carefully reviewed, there may still be some phonetic and typographical changes. The errors are purely typographical, due to imperfection on the software program, and do not reflect any compromise in the patient's medical care. Plan discussed with: Patient, Other (BENSON Flores) SNEHA KUMARI MD May 27, 2024 22:43
[2024-05-28] VITALS (16 sets, daily range): BP systolic 110–122; BP diastolic 61–71; PULSE 90–118; RESP 16–18; TEMP 97.4–98.8; O2SAT 95–99
[2024-05-28] MEDS: DOCUSATE SOD 100 MG CAP PO PRN (10:38)
[2024-05-28] MEDS: CYCLOPENTOLATE HCL 1% OPTH(EYE) SOL 2ML EACHEYE SCH (11:09)
--- NOTE | 2024-05-28 13:28 | DVHPN2 ---
Progress Note - Dictate Date Seen: May 28, 2024 Medical Necessity Reason Pt with a Central, PICC or Fol: No Subjective PT WELL KNOWN TO ME SSS S/P PPI AFIB HYPERCOAGULABLE STATE PAH HFrEF CHRONIC EF 45% DIABETES NOW WITH SS COMPLEX OF SOB CXR CONSISTENT WITH INTERSTITIAL LUNG DISEASE COPD EXACERABATION PRODUCTIVE COUGH CONGESTION TROPONIN NEGATIVE BNP WNL vital signs Vital Sign Date Time Temp Pulse Resp B/P (MAP) Pulse Ox O2 Delivery O2 Flow Rate FiO2 05/28/24 11:53 90 18 99 05/28/24 11:49 97.4 122/69 (86) 97.4 05/28/24 11:47 Oxymizer 6 N/A Total Intake and Output 05/27/24 05/27/24 05/28/24 15:00 23:00 07:00 Intake Total 1250 ml 700 ml Output Total 400 ml 1500 ml Balance 850 ml -800 ml medications Current Medications Medications Dose Ordered Sig/Long Route Start Time Stop Time Status Last Admin Dose Admin Sodium Chloride 10 ml Q8HR IV 05/22/24 14:00 05/28/24 06:12 10 ML Docusate Sodium 100 mg BIDPRN PRN PO 05/22/24 10:30 05/28/24 10:38 100 MG Acetaminophen 650 mg Q6HP PRN PO 05/22/24 10:30 Acetaminophen/ Hydrocodone Bitart 1 tab Q4HP PRN PO 05/22/24 10:30 Ondansetron HCl 4 mg Q4HP PRN IV 05/22/24 10:30 Albuterol 2.5 mg Q6H NEB 05/22/24 12:00 05/28/24 11:47 2.5 MG Ipratropium [place] 0.5 mg Q6H NEB 05/22/24 12:00 05/28/24 11:47 0.5 MG Ascorbic Acid 500 mg BID PO 05/22/24 22:00 05/28/24 10:45 500 MG Clopidogrel Bisulfate 75 mg DAILY PO 05/23/24 10:00 05/28/24 10:46 75 MG Atorvastatin Calcium 10 mg HS PO 05/22/24 22:00 05/27/24 21:32 10 MG Patient Own Medication 5 DAILY PO 05/23/24 10:00 05/28/24 11:25 5 Donepezil HCl 10 mg HS PO 05/22/24 22:00 05/27/24 21:32 10 MG Apixaban 2.5 mg BID PO 05/22/24 10:45 05/28/24 10:46 2.5 MG Pantoprazole Sodium 40 mg DAILY IV 05/22/24 11:00 05/28/24 10:45 40 MG Artificial Tears 2 drop Q6HP PRN EACHEYE 05/22/24 16:00 05/26/24 22:20 2 DROP Diagnostic Test (Pha) 1 strip ACHS 05/23/24 17:00 05/28/24 11:36 1 STRIP Insulin Human Regular HS SC 05/23/24 22:00 05/27/24 21:46 8 UNITS Insulin Human Regular AC SC 05/23/24 17:00 05/28/24 11:42 15 UNITS Dextrose 50 ml UD PRN IV 05/23/24 15:00 Prednisone 40 mg DAILY PO 05/26/24 10:00 05/28/24 10:46 40 MG Ceftriaxone Sodium 50 ml @ 100 mls/hr DAILY@09 IV 05/27/24 21:00 05/28/24 10:46 100 MLS/HR Enteral Nutritional Formula 240 ml TIDWM PO 05/27/24 18:00 05/28/24 12:00 240 ML Cyclopentolate HCl 1 drop BID EACHEYE 05/28/24 10:00 05/28/24 11:09 1 DROP laboratory and microbiology Laboratory Tests 05/26/24 09:35 Test 05/26/24 09:35 Range/Units Serum Glucose 233 H 74-106 mg/dL Problem List SSS S/P PPI PAH HFrEF CHRONIC EF 45% NOW WITH SS COMPLEX OF SOB CXR CONSISTENT WITH INTERSTITIAL LUNG DISEASE COPD EXACERABATION PRODUCTIVE COUGH CONGESTION TROPONIN NEGATIVE BNP WNL Assessment/Plan INHALER STEROIDS ABX START REVATIO 20 MG TID LASIX IV DC SOLUMEDROL DC IV FLUID CORRECT HYPOKALEMIA ANOTHER DOSE OF LASIX CORRECT K ENSURE PHYSICAL THERAPY CHANGE ABX TO ZOSYN SOLUMEDROL Dietary Evaluation Review Comments: recommendation: 1. smoking cessation 2. Recommend Renal Specific 60g protein restricted 2gNa 3K low phos CCHO-60 g diet if Pt does not need dialysis treatment. Expected Outcomes/Goals: Controlled DM, less uremic symptoms, maintain weight Plan discussed with: Patient WILEY SALINAS MD May 28, 2024 13:28
[2024-05-28 14:06] LABS: Basophils # (auto) 0 10 ^3/uL (0-0.2); Basophils % (auto) 0.1 % (0.0-2.0); Eosinophils # (auto) 0 10 ^3/uL (0-0.8); Hemoglobin 10.8 g/dL (12.2-16.2); Lymphocytes # (auto) 0.4 10 ^3/uL (0.4-5.4); Lymphocytes % (auto) 1.8 % (10.0-50.0); Mean Corpuscular Hemoglobin 27.5 pg (28.0-32.0); Mean Corpuscular Hgb Conc. 31.8 g/dL (32.0-36.0); Mean Corpuscular Volume 86.5 fL (80.0-100.0); Monocytes # (auto) 0.7 10 ^3/uL (0-1.3); Monocytes % (auto) 3.2 % (0.0-12.0); Neutrophils # (auto) 21.2 10 ^3/uL (1.6-8.6); Neutrophils % (auto) 94.9 % (37.0-80.0); Nucleated Red Blood Cells % 0.3 %; Platelet Count (auto) 408 10^3/uL (140-450); Red Blood Cells 3.93 10^6/uL (4.0-5.20); Red Cell Distribution Width 18.1 % (11.8-14.3); White Blood Cell 22.3 10^3/uL (4.4-10.8)
[2024-05-28 14:35] LABS: Anion Gap 7 (5-15); BUN/Creatinine Ratio 32.3 (10.0-20.0); Calcium 9.6 mg/dL (8.7-10.4); Carbon Dioxide 25 mmol/L (20-31); Chloride 101 mmol/L (98-107); Potassium 4.1 mmol/L (3.5-5.1)
[2024-05-28 14:36] LABS: Alanine Aminotransferase 116 U/L (7-40); Albumin 3.2 g/dL (3.2-4.8); Alkaline Phosphatase 143 U/L (46-116); Aspartate Aminotransferase 73 U/L (13-40); Bilirubin, Total 0.3 mg/dL (0.2-1.0); Blood Urea Nitrogen 43 mg/dL (9-23); Glucose 349 mg/dL (74-106); Sodium 133 mmol/L (136-145); Total Protein 5.6 g/dL (5.7-8.2)
[2024-05-28] MEDS: PIPERACILLIN-TAZOB 3.375GM 100 ML IV ONE (15:20)
--- NOTE | 2024-05-28 22:26 | DVHPN2 ---
Progress Note - Dictate Date Seen: May 28, 2024 Medical Necessity Reason Pt with a Central, PICC or Fol: Yes The following are medically ne: Nova Catheter Reason for nova catheter: Strict I&O Subjective Patient seen and examined at bedside. Remains on supplemental oxygen Overnight events reviewed. vital signs Vital Sign Date Time Temp Pulse Resp B/P (MAP) Pulse Ox O2 Delivery O2 Flow Rate FiO2 05/28/24 21:00 98.2 100 18 115/65 (82) 96 98.2 05/28/24 19:46 Oxymizer 4.0 05/28/24 19:46 N/A Total Intake and Output 05/27/24 05/27/24 05/28/24 15:00 23:00 07:00 Intake Total 1250 ml 700 ml Output Total 400 ml 1500 ml Balance 850 ml -800 ml medications Current Medications Medications Dose Ordered Sig/Long Route Start Time Stop Time Status Last Admin Dose Admin Sodium Chloride 10 ml Q8HR IV 05/22/24 14:00 05/28/24 13:46 10 ML Docusate Sodium 100 mg BIDPRN PRN PO 05/22/24 10:30 05/28/24 10:38 100 MG Acetaminophen 650 mg Q6HP PRN PO 05/22/24 10:30 Acetaminophen/ Hydrocodone Bitart 1 tab Q4HP PRN PO 05/22/24 10:30 Ondansetron HCl 4 mg Q4HP PRN IV 05/22/24 10:30 Albuterol 2.5 mg Q6H NEB 05/22/24 12:00 05/28/24 19:46 2.5 MG Ipratropium [place] 0.5 mg Q6H NEB 05/22/24 12:00 05/28/24 19:46 0.5 MG Ascorbic Acid 500 mg BID PO 05/22/24 22:00 05/28/24 10:45 500 MG Clopidogrel Bisulfate 75 mg DAILY PO 05/23/24 10:00 05/28/24 10:46 75 MG Atorvastatin Calcium 10 mg HS PO 05/22/24 22:00 05/27/24 21:32 10 MG Patient Own Medication 5 DAILY PO 05/23/24 10:00 05/28/24 11:25 5 Donepezil HCl 10 mg HS PO 05/22/24 22:00 05/27/24 21:32 10 MG Apixaban 2.5 mg BID PO 05/22/24 10:45 05/28/24 10:46 2.5 MG Pantoprazole Sodium 40 mg DAILY IV 05/22/24 11:00 05/28/24 10:45 40 MG Artificial Tears 2 drop Q6HP PRN EACHEYE 05/22/24 16:00 05/26/24 22:20 2 DROP Diagnostic Test (Pha) 1 strip ACHS 05/23/24 17:00 05/28/24 17:20 1 STRIP Insulin Human Regular HS SC 05/23/24 22:00 05/27/24 21:46 8 UNITS Insulin Human Regular AC SC 05/23/24 17:00 05/28/24 17:22 12 UNITS Dextrose 50 ml UD PRN IV 05/23/24 15:00 Prednisone 40 mg DAILY PO 05/26/24 10:00 Hold 05/28/24 10:46 40 MG Enteral Nutritional Formula 240 ml TIDWM PO 05/27/24 18:00 05/28/24 18:37 240 ML Cyclopentolate HCl 1 drop BID EACHEYE 05/28/24 10:00 05/28/24 11:09 1 DROP Piperacillin Sod/ Tazobactam Sod 100 ml @ 25 mls/hr Q8HR IV 05/28/24 22:00 Methylprednisolone Sodium Succinate 40 mg BID IV 05/28/24 22:00 objective Gen.: Patient lying in bed in no apparent distress. On supplemental oxygen. Head: Normocephalic, atraumatic. Eyes: EOMI/PERRLA. Ears: Normal hearing. Normal anatomy. Neck/trachea: Trachea midline, supple. Nose: Normal external anatomy. Mouth: Moist mucous membranes. Chest: Decreased air entry bilaterally. No wheezing. No rhonchi. Crackles present. Cardiovascular: Positive S1, positive S2. Regular rate and rhythm. Abdomen: Positive bowel sounds in all 4 quadrants. Soft, non-tender, non- distended. : Deferred. Rectal: Deferred. Skin: Warm, dry. Intact. Extremities: 2+ radial pulses bilaterally. No lower extremity edema. Neuro: Awake, alert, oriented x3. No gross motor or sensory deficits. Cranial nerves II through XII intact. Gait not assessed. laboratory and microbiology Laboratory Tests 05/28/24 13:30 Test 05/28/24 13:30 Range/Units Serum Glucose 349 H 74-106 mg/dL Assessment/Plan Impression: Acute on chronic COPD exacerbation Dyspnea Acute on chronic hypoxic respiratory failure Dependence on supplemental oxygen Congestive heart failure Nicotine dependence Hypokalemia Events: Remains on supplemental oxygen, 4 LPM Oxymizer Taper O2 as tolerated Continue bronchodilators Continue antibiotics Complete prednisone course Incentive spirometry On Eliquis CXR on 05/27/24 demonstrates Slight interval improvement in the extensive interstitial and alveolar type opacities of the right lung with unchanged mild interstitial opacities of the left lung. No effusion or pneumothorax. Labs and imaging reviewed. Rest of plan as noted below. Plan: Supplemental oxygen Titrate to keep O2 sats above 92%. Chest x-ray reviewed, notable for chronic interstitial opacities. Continue bronchodilators. Continue steroids Incentive spirometry Monitor renal function. Monitor electrolytes. Supplement as necessary. Monitor ins and outs. DVT prophylaxis. Prognosis: Poor given patient's multiple co-morbidities. Rest of plan per hospitalist and other consultants. Thank you, Dr. Talamantes for allowing me to participate in this patient's care. Further recommendations will depend on the patient's clinical course. Please do not hesitate to contact me if you have any questions or concerns. This medical document was created using an electronic medical record system with [employer] dictation system. Although these documentations are being carefully reviewed, there may still be some phonetic and typographical changes. The errors are purely typographical, due to imperfection on the software program, and do not reflect any compromise in the patient's medical care. Dietary Evaluation Review Comments: recommendation: 1. smoking cessation 2. Recommend Renal Specific 60g protein restricted 2gNa 3K low phos CCHO-60 g diet if Pt does not need dialysis treatment. Expected Outcomes/Goals: Controlled DM, less uremic symptoms, maintain weight Plan discussed with: Patient, Other (BENSON Worrell) SNEHA KUMARI MD May 28, 2024 22:26
[2024-05-28] MEDS: methylPREDNISolone SOD SUCC 40 MG/ML VL IV SCH (22:46)
[2024-05-28] MEDS: PIPERACILLIN-TAZOB 3.375GM 100 ML IV SCH (22:46)
[2024-05-29] VITALS (19 sets, daily range): BP systolic 98–131; BP diastolic 49–72; PULSE 78–99; RESP 16–18; TEMP 97.9–98.8; O2SAT 95–99
--- NOTE | 2024-05-29 12:07 | DVHPN2 ---
Progress Note - Dictate Date Seen: May 29, 2024 Medical Necessity Reason Pt with a Central, PICC or Fol: Yes The following are medically ne: Nova Catheter Reason for nova catheter: Strict I&O Subjective PT WELL KNOWN TO ME SSS S/P PPI AFIB HYPERCOAGULABLE STATE PAH HFrEF CHRONIC EF 45% DIABETES NOW WITH SS COMPLEX OF SOB CXR CONSISTENT WITH INTERSTITIAL LUNG DISEASE COPD EXACERABATION PRODUCTIVE COUGH CONGESTION TROPONIN NEGATIVE BNP WNL vital signs Vital Sign Date Time Temp Pulse Resp B/P (MAP) Pulse Ox O2 Delivery O2 Flow Rate FiO2 05/29/24 11:29 91 18 98 05/29/24 10:00 Oxymizer 4 N/A 05/29/24 09:29 119/72 05/29/24 08:35 98.1 98.1 Total Intake and Output 05/28/24 05/28/24 05/29/24 15:00 23:00 07:00 Intake Total 50 ml 1000 ml 900 ml Output Total 800 ml 1000 ml Balance 50 ml 200 ml -100 ml medications Current Medications Medications Dose Ordered Sig/Long Route Start Time Stop Time Status Last Admin Dose Admin Sodium Chloride 10 ml Q8HR IV 05/22/24 14:00 05/29/24 06:13 10 ML Docusate Sodium 100 mg BIDPRN PRN PO 05/22/24 10:30 05/28/24 10:38 100 MG Acetaminophen 650 mg Q6HP PRN PO 05/22/24 10:30 Acetaminophen/ Hydrocodone Bitart 1 tab Q4HP PRN PO 05/22/24 10:30 Ondansetron HCl 4 mg Q4HP PRN IV 05/22/24 10:30 Albuterol 2.5 mg Q6H NEB 05/22/24 12:00 05/29/24 11:23 2.5 MG Ipratropium [place] 0.5 mg Q6H NEB 05/22/24 12:00 05/29/24 11:23 0.5 MG Ascorbic Acid 500 mg BID PO 05/22/24 22:00 05/29/24 09:31 500 MG Clopidogrel Bisulfate 75 mg DAILY PO 05/23/24 10:00 05/29/24 09:31 75 MG Atorvastatin Calcium 10 mg HS PO 05/22/24 22:00 05/28/24 22:45 10 MG Patient Own Medication 5 DAILY PO 05/23/24 10:00 05/29/24 09:31 5 Donepezil HCl 10 mg HS PO 05/22/24 22:00 05/28/24 22:45 10 MG Apixaban 2.5 mg BID PO 05/22/24 10:45 05/29/24 09:31 2.5 MG Pantoprazole Sodium 40 mg DAILY IV 05/22/24 11:00 05/29/24 09:31 40 MG Artificial Tears 2 drop Q6HP PRN EACHEYE 05/22/24 16:00 05/26/24 22:20 2 DROP Diagnostic Test (Pha) 1 strip ACHS 05/23/24 17:00 05/29/24 06:14 1 STRIP Insulin Human Regular HS SC 05/23/24 22:00 05/28/24 22:50 8 UNITS Insulin Human Regular AC SC 05/23/24 17:00 05/29/24 06:12 9 UNITS Dextrose 50 ml UD PRN IV 05/23/24 15:00 Prednisone 40 mg DAILY PO 05/26/24 10:00 Hold 05/28/24 10:46 40 MG Enteral Nutritional Formula 240 ml TIDWM PO 05/27/24 18:00 05/29/24 08:06 240 ML Cyclopentolate HCl 1 drop BID EACHEYE 05/28/24 10:00 05/29/24 09:31 1 DROP Piperacillin Sod/ Tazobactam Sod 100 ml @ 25 mls/hr Q8HR IV 05/28/24 22:00 05/29/24 06:11 25 MLS/HR Methylprednisolone Sodium Succinate 40 mg BID IV 05/28/24 22:00 05/29/24 09:31 40 MG laboratory and microbiology Laboratory Tests 05/28/24 13:30 Test 05/28/24 13:30 Range/Units Serum Glucose 349 H 74-106 mg/dL Problem List SSS S/P PPI PAH HFrEF CHRONIC EF 45% NOW WITH SS COMPLEX OF SOB CXR CONSISTENT WITH INTERSTITIAL LUNG DISEASE COPD EXACERABATION PRODUCTIVE COUGH CONGESTION TROPONIN NEGATIVE BNP WNL Assessment/Plan INHALER STEROIDS ABX START REVATIO 20 MG TID LASIX IV DC SOLUMEDROL DC IV FLUID CORRECT HYPOKALEMIA ANOTHER DOSE OF LASIX CORRECT K ENSURE PHYSICAL THERAPY CHANGE ABX TO ZOSYN SOLUMEDROL start lantus regimen will titrate off steroids check cbc with change in abx regimen Dietary Evaluation Review Comments: recommendation: 1. smoking cessation 2. Recommend Renal Specific 60g protein restricted 2gNa 3K low phos CCHO-60 g diet if Pt does not need dialysis treatment. Expected Outcomes/Goals: Controlled DM, less uremic symptoms, maintain weight Plan discussed with: Patient Critical Care Time(min): 35 WILEY SALINAS MD May 29, 2024 12:07
[2024-05-29] MEDS: INSULIN LANTUS (GLARGINE) 1 /0.01ml (100units/ml) SC ONE (12:43)
[2024-05-29 13:47] LABS: Basophils # (auto) 0 10 ^3/uL (0-0.2); Basophils % (auto) 0.1 % (0.0-2.0); Eosinophils # (auto) 0 10 ^3/uL (0-0.8); Hematocrit 36.6 % (36.0-46.0); Hemoglobin 11.5 g/dL (12.2-16.2); Lymphocytes # (auto) 0.2 10 ^3/uL (0.4-5.4); Mean Corpuscular Hemoglobin 27.6 pg (28.0-32.0); Mean Corpuscular Hgb Conc. 31.5 g/dL (32.0-36.0); Mean Corpuscular Volume 87.5 fL (80.0-100.0); Monocytes # (auto) 0.3 10 ^3/uL (0-1.3); Monocytes % (auto) 1.5 % (0.0-12.0); Neutrophils # (auto) 20.7 10 ^3/uL (1.6-8.6); Neutrophils % (auto) 97.4 % (37.0-80.0); Nucleated Red Blood Cells % 0.1 %; Platelet Count (auto) 454 10^3/uL (140-450); Red Blood Cells 4.18 10^6/uL (4.0-5.20); Red Cell Distribution Width 18.6 % (11.8-14.3); White Blood Cell 21.3 10^3/uL (4.4-10.8)
[2024-05-29 14:01] LABS: Albumin 3.5 g/dL (3.2-4.8); Anion Gap 7 (5-15); BUN/Creatinine Ratio 34.1 (10.0-20.0); Bilirubin, Total 0.4 mg/dL (0.2-1.0); Calcium 9.9 mg/dL (8.7-10.4); Carbon Dioxide 28 mmol/L (20-31); Potassium 4.8 mmol/L (3.5-5.1)
[2024-05-29 14:14] LABS: Alanine Aminotransferase 131 U/L (7-40); Alkaline Phosphatase 203 U/L (46-116); Aspartate Aminotransferase 56 U/L (13-40); Blood Urea Nitrogen 47 mg/dL (9-23); Chloride 94 mmol/L (98-107); Sodium 129 mmol/L (136-145)
[2024-05-29 14:18] LABS: Glucose 528 mg/dL (74-106)
[2024-05-29] MEDS: InsuLIN REG 1unit/0.01ml Soln (100units/ml) SC ONE (15:30)
[2024-05-29] MEDS ORDERED: predniSONE 20 MG TAB PO SCH (18:00)
[2024-05-29] MEDS: INSULIN LANTUS (GLARGINE) 1 /0.01ml (100units/ml) SC SCH (21:25)
--- NOTE | 2024-05-29 23:27 | DVHPN2 ---
Progress Note - Dictate Date Seen: May 29, 2024 Medical Necessity Reason Pt with a Central, PICC or Fol: Yes The following are medically ne: Nova Catheter Reason for nova catheter: Strict I&O Subjective Patient seen and examined at bedside. Remains on supplemental oxygen Overnight events reviewed. vital signs Vital Sign Date Time Temp Pulse Resp B/P (MAP) Pulse Ox O2 Delivery O2 Flow Rate FiO2 05/29/24 21:00 98.8 89 18 98/49 (65) 96 98.8 05/29/24 20:00 Oxymizer 4 N/A Total Intake and Output 05/28/24 05/28/24 05/29/24 15:00 23:00 07:00 Intake Total 50 ml 1000 ml 900 ml Output Total 800 ml 1000 ml Balance 50 ml 200 ml -100 ml medications Current Medications Medications Dose Ordered Sig/Long Route Start Time Stop Time Status Last Admin Dose Admin Sodium Chloride 10 ml Q8HR IV 05/22/24 14:00 05/29/24 21:22 10 ML Docusate Sodium 100 mg BIDPRN PRN PO 05/22/24 10:30 05/28/24 10:38 100 MG Acetaminophen 650 mg Q6HP PRN PO 05/22/24 10:30 Acetaminophen/ Hydrocodone Bitart 1 tab Q4HP PRN PO 05/22/24 10:30 Ondansetron HCl 4 mg Q4HP PRN IV 05/22/24 10:30 Albuterol 2.5 mg Q6H NEB 05/22/24 12:00 05/29/24 18:54 2.5 MG Ipratropium [place] 0.5 mg Q6H NEB 05/22/24 12:00 05/29/24 18:54 0.5 MG Ascorbic Acid 500 mg BID PO 05/22/24 22:00 05/29/24 21:19 500 MG Clopidogrel Bisulfate 75 mg DAILY PO 05/23/24 10:00 05/29/24 09:31 75 MG Atorvastatin Calcium 10 mg HS PO 05/22/24 22:00 05/29/24 21:18 10 MG Patient Own Medication 5 DAILY PO 05/23/24 10:00 05/29/24 09:31 5 Donepezil HCl 10 mg HS PO 05/22/24 22:00 05/29/24 21:18 10 MG Apixaban 2.5 mg BID PO 05/22/24 10:45 05/29/24 21:18 2.5 MG Pantoprazole Sodium 40 mg DAILY IV 05/22/24 11:00 05/29/24 09:31 40 MG Artificial Tears 2 drop Q6HP PRN EACHEYE 05/22/24 16:00 05/26/24 22:20 2 DROP Diagnostic Test (Pha) 1 strip ACHS 05/23/24 17:00 05/29/24 21:25 1 STRIP Insulin Human Regular HS SC 05/23/24 22:00 05/29/24 21:24 2 UNITS Insulin Human Regular AC SC 05/23/24 17:00 05/29/24 18:33 9 UNITS Dextrose 50 ml UD PRN IV 05/23/24 15:00 Enteral Nutritional Formula 240 ml TIDWM PO 05/27/24 18:00 05/29/24 18:26 240 ML Cyclopentolate HCl 1 drop BID EACHEYE 05/28/24 10:00 05/29/24 21:17 1 DROP Piperacillin Sod/ Tazobactam Sod 100 ml @ 25 mls/hr Q8HR IV 05/28/24 22:00 05/29/24 21:17 25 MLS/HR Insulin Glargine 20 units BID@0700,2200 SC 05/29/24 22:00 05/29/24 21:25 20 UNITS Prednisone 20 mg DAILY PO 05/30/24 10:00 objective Gen.: Patient lying in bed in no apparent distress. On supplemental oxygen. Head: Normocephalic, atraumatic. Eyes: EOMI/PERRLA. Ears: Normal hearing. Normal anatomy. Neck/trachea: Trachea midline, supple. Nose: Normal external anatomy. Mouth: Moist mucous membranes. Chest: Decreased air entry bilaterally. Coarse wheezing. No rhonchi. Crackles present. Cardiovascular: Positive S1, positive S2. Regular rate and rhythm. Abdomen: Positive bowel sounds in all 4 quadrants. Soft, non-tender, non- distended. : Deferred. Rectal: Deferred. Skin: Warm, dry. Intact. Extremities: 2+ radial pulses bilaterally. No lower extremity edema. Neuro: Awake, alert, oriented x3. No gross motor or sensory deficits. Cranial nerves II through XII intact. Gait not assessed. laboratory and microbiology Laboratory Tests 05/29/24 13:17 Test 05/29/24 13:17 Range/Units Serum Glucose 528 *H 74-106 mg/dL Assessment/Plan Impression: Acute on chronic COPD exacerbation Dyspnea Acute on chronic hypoxic respiratory failure Dependence on supplemental oxygen Congestive heart failure Nicotine dependence Hypokalemia Events: Remains on supplemental oxygen, 4 LPM Oxymizer Taper O2 as tolerated Continue bronchodilators Continue antibiotics Steroids - prednisone d/t hyperglycemia Incentive spirometry On Eliquis CXR on 05/27/24 demonstrates Slight interval improvement in the extensive interstitial and alveolar type opacities of the right lung with unchanged mild interstitial opacities of the left lung. No effusion or pneumothorax. Labs and imaging reviewed. Rest of plan as noted below. Plan: Supplemental oxygen Titrate to keep O2 sats above 92%. Chest x-ray reviewed, notable for chronic interstitial opacities. Continue bronchodilators. Continue steroids Incentive spirometry Monitor renal function. Monitor electrolytes. Supplement as necessary. Monitor ins and outs. DVT prophylaxis. Prognosis: Poor given patient's multiple co-morbidities. Rest of plan per hospitalist and other consultants. Thank you, Dr. Talamantes for allowing me to participate in this patient's care. Further recommendations will depend on the patient's clinical course. Please do not hesitate to contact me if you have any questions or concerns. This medical document was created using an electronic medical record system with [employer] dictation system. Although these documentations are being carefully reviewed, there may still be some phonetic and typographical changes. The errors are purely typographical, due to imperfection on the software program, and do not reflect any compromise in the patient's medical care. Dietary Evaluation Review Comments: recommendation: 1. smoking cessation 2. Recommend Renal Specific 60g protein restricted 2gNa 3K low phos CCHO-60 g diet if Pt does not need dialysis treatment. Expected Outcomes/Goals: Controlled DM, less uremic symptoms, maintain weight Plan discussed with: Patient, Other (BENSON Worrell) SNEHA KUMARI MD May 29, 2024 23:27
[2024-05-30] VITALS (14 sets, daily range): BP systolic 102–124; BP diastolic 50–71; PULSE 76–101; RESP 16–21; TEMP 97.8–98.4; O2SAT 93–99
[2024-05-30] MEDS: predniSONE 20 MG TAB PO SCH (10:43)
--- NOTE | 2024-05-30 15:00 | DVHPN2 ---
Progress Note - Dictate Date Seen: May 30, 2024 Medical Necessity Reason Pt with a Central, PICC or Fol: Yes The following are medically ne: Nova Catheter Reason for nova catheter: Strict I&O Subjective PT WELL KNOWN TO ME SSS S/P PPI AFIB HYPERCOAGULABLE STATE PAH HFrEF CHRONIC EF 45% DIABETES NOW WITH SS COMPLEX OF SOB CXR CONSISTENT WITH INTERSTITIAL LUNG DISEASE COPD EXACERABATION PRODUCTIVE COUGH CONGESTION TROPONIN NEGATIVE BNP WNL vital signs Vital Sign Date Time Temp Pulse Resp B/P (MAP) Pulse Ox O2 Delivery O2 Flow Rate FiO2 05/30/24 13:23 86 16 96 05/30/24 13:17 Oxymizer 4 N/A 05/30/24 13:00 98.3 102/50 (67) 98.3 Total Intake and Output 05/29/24 05/29/24 05/30/24 15:00 23:00 07:00 Intake Total 1300 ml 340 ml Output Total 1300 ml 750 ml Balance 0 ml -410 ml medications Current Medications Medications Dose Ordered Sig/Long Route Start Time Stop Time Status Last Admin Dose Admin Sodium Chloride 10 ml Q8HR IV 05/22/24 14:00 05/30/24 13:35 10 ML Docusate Sodium 100 mg BIDPRN PRN PO 05/22/24 10:30 05/28/24 10:38 100 MG Acetaminophen 650 mg Q6HP PRN PO 05/22/24 10:30 Acetaminophen/ Hydrocodone Bitart 1 tab Q4HP PRN PO 05/22/24 10:30 Ondansetron HCl 4 mg Q4HP PRN IV 05/22/24 10:30 Albuterol 2.5 mg Q6H NEB 05/22/24 12:00 05/30/24 13:17 2.5 MG Ipratropium [place] 0.5 mg Q6H NEB 05/22/24 12:00 05/30/24 13:17 0.5 MG Ascorbic Acid 500 mg BID PO 05/22/24 22:00 05/30/24 10:42 500 MG Clopidogrel Bisulfate 75 mg DAILY PO 05/23/24 10:00 05/30/24 10:43 75 MG Atorvastatin Calcium 10 mg HS PO 05/22/24 22:00 05/29/24 21:18 10 MG Patient Own Medication 5 DAILY PO 05/23/24 10:00 05/30/24 13:33 5 Donepezil HCl 10 mg HS PO 05/22/24 22:00 05/29/24 21:18 10 MG Apixaban 2.5 mg BID PO 05/22/24 10:45 05/30/24 10:42 2.5 MG Pantoprazole Sodium 40 mg DAILY IV 05/22/24 11:00 05/30/24 10:42 40 MG Artificial Tears 2 drop Q6HP PRN EACHEYE 05/22/24 16:00 05/26/24 22:20 2 DROP Diagnostic Test (Pha) 1 strip ACHS 05/23/24 17:00 05/30/24 10:51 1 STRIP Insulin Human Regular HS SC 05/23/24 22:00 05/29/24 21:24 2 UNITS Insulin Human Regular AC SC 05/23/24 17:00 05/29/24 18:33 9 UNITS Dextrose 50 ml UD PRN IV 05/23/24 15:00 Enteral Nutritional Formula 240 ml TIDWM PO 05/27/24 18:00 05/30/24 12:00 240 ML Cyclopentolate HCl 1 drop BID EACHEYE 05/28/24 10:00 05/30/24 10:42 1 DROP Piperacillin Sod/ Tazobactam Sod 100 ml @ 25 mls/hr Q8HR IV 05/28/24 22:00 05/30/24 13:33 25 MLS/HR Insulin Glargine 20 units BID@0700,2200 SC 05/29/24 22:00 05/29/24 21:25 20 UNITS Prednisone 20 mg DAILY PO 05/30/24 10:00 05/30/24 10:43 20 MG laboratory and microbiology Laboratory Tests 05/29/24 13:17 Test 05/29/24 13:17 Range/Units Serum Glucose 528 *H 74-106 mg/dL Problem List SSS S/P PPI PAH HFrEF CHRONIC EF 45% NOW WITH SS COMPLEX OF SOB CXR CONSISTENT WITH INTERSTITIAL LUNG DISEASE COPD EXACERABATION PRODUCTIVE COUGH CONGESTION TROPONIN NEGATIVE BNP WNL Assessment/Plan INHALER STEROIDS ABX START REVATIO 20 MG TID LASIX IV DC SOLUMEDROL DC IV FLUID CORRECT HYPOKALEMIA ANOTHER DOSE OF LASIX CORRECT K ENSURE PHYSICAL THERAPY CHANGE ABX TO ZOSYN SOLUMEDROL start lantus regimen will titrate off steroids check cbc with change in abx regimen STILL ELEVATED WBC ELEVATED BNP RECHECK LABS BLD GLC BETTER DC SOLUMEDROL Dietary Evaluation Review Comments: recommendation: 1. smoking cessation 2. Recommend Renal Specific 60g protein restricted 2gNa 3K low phos CCHO-60 g diet if Pt does not need dialysis treatment. Expected Outcomes/Goals: Controlled DM, less uremic symptoms, maintain weight Plan discussed with: Patient Critical Care Time(min): 35 WILEY SALINAS MD May 30, 2024 14:59
--- NOTE | 2024-05-30 15:24 | DVH ---
CHEST RADIOGRAPH Indication: INFILTRATE Technique: Single frontal view of the chest was obtained Comparison: XY CHEST PORTABLE on DOS: 05/27/24, XY CHEST XRAY 1 VIEW on DOS: 05/26/24, XY CHEST PORTABLE on DOS: 05/22/24, XY CHEST PORTABLE on DOS: 08/20/23, XY CHEST XRAY 1 VIEW on DOS: 08/18/23 FINDINGS: Lines and Tubes: Left pacemaker. Lungs: No focal consolidation. Pleura: No effusion. No pneumothorax. Cardiomediastinal contours: Unremarkable Bones: No acute osseous abnormality. IMPRESSION: No acute cardiopulmonary disease.
[2024-05-30 16:22] LABS: Hematocrit 31.9 % (36.0-46.0); Hemoglobin 10.1 g/dL (12.2-16.2); Mean Corpuscular Hemoglobin 27.2 pg (28.0-32.0); Mean Corpuscular Hgb Conc. 31.6 g/dL (32.0-36.0); Mean Corpuscular Volume 86.1 fL (80.0-100.0); Platelet Count (auto) 405 10^3/uL (140-450); White Blood Cell 24.2 10^3/uL (4.4-10.8)
[2024-05-30 16:30] LABS: Basophils % (manual) 0 (0.0-2.0); Blast Cells 0; Eosinophils % (manual) 0 (0-7); Metamyelocytes % 0; Myelocytes % 0; Promyelocytes % 0; Reactive Lymphocytes 0
[2024-05-30 16:38] LABS: Chloride 100 mmol/L (98-107); Potassium 4.8 mmol/L (3.5-5.1)
[2024-05-30 16:39] LABS: Anion Gap 7 (5-15); Calcium 9.3 mg/dL (8.7-10.4); Carbon Dioxide 27 mmol/L (20-31)
[2024-05-30 16:44] LABS: BUN/Creatinine Ratio 30.1 (10.0-20.0)
[2024-05-30 16:46] LABS: Band Neutrophils % (manual) 4; Lymphocytes % (manual) 5 (10.0-50.0); Monocytes % (manual) 1 (0-12); Platelet Estimate Adequate
[2024-05-30 16:47] LABS: Blood Urea Nitrogen 40 mg/dL (9-23); Glucose 222 mg/dL (74-106); Sodium 134 mmol/L (136-145)
[2024-05-30] MEDS: VANCOMYCIN 1GM/250ML KIT 250 ML IV ONE (18:19)
[2024-05-30] MEDS: FLUCONAZOLE 200MG/100ML 100 ML IV SCH (18:19)
--- NOTE | 2024-05-30 23:13 | DVHPN2 ---
Progress Note - Dictate Date Seen: May 30, 2024 Medical Necessity Reason Pt with a Central, PICC or Fol: Yes The following are medically ne: Nova Catheter Reason for nova catheter: Strict I&O Subjective Patient seen and examined at bedside. Remains on supplemental oxygen Overnight events reviewed. vital signs Vital Sign Date Time Temp Pulse Resp B/P (MAP) Pulse Ox O2 Delivery O2 Flow Rate FiO2 05/30/24 21:48 98.4 78 17 105/59 (74) 99 98.4 05/30/24 18:14 Oxymizer 2 N/A Total Intake and Output 05/29/24 05/29/24 05/30/24 15:00 23:00 07:00 Intake Total 1300 ml 340 ml Output Total 1300 ml 750 ml Balance 0 ml -410 ml medications Current Medications Medications Dose Ordered Sig/Long Route Start Time Stop Time Status Last Admin Dose Admin Sodium Chloride 10 ml Q8HR IV 05/22/24 14:00 05/30/24 21:39 10 ML Docusate Sodium 100 mg BIDPRN PRN PO 05/22/24 10:30 05/28/24 10:38 100 MG Acetaminophen 650 mg Q6HP PRN PO 05/22/24 10:30 Acetaminophen/ Hydrocodone Bitart 1 tab Q4HP PRN PO 05/22/24 10:30 Ondansetron HCl 4 mg Q4HP PRN IV 05/22/24 10:30 Albuterol 2.5 mg Q6H NEB 05/22/24 12:00 05/30/24 18:17 2.5 MG Ipratropium [place] 0.5 mg Q6H NEB 05/22/24 12:00 05/30/24 18:17 0.5 MG Ascorbic Acid 500 mg BID PO 05/22/24 22:00 05/30/24 21:37 500 MG Clopidogrel Bisulfate 75 mg DAILY PO 05/23/24 10:00 05/30/24 10:43 75 MG Atorvastatin Calcium 10 mg HS PO 05/22/24 22:00 05/30/24 22:00 10 MG Patient Own Medication 5 DAILY PO 05/23/24 10:00 05/30/24 13:33 5 Donepezil HCl 10 mg HS PO 05/22/24 22:00 05/30/24 21:37 10 MG Apixaban 2.5 mg BID PO 05/22/24 10:45 05/30/24 21:37 2.5 MG Pantoprazole Sodium 40 mg DAILY IV 05/22/24 11:00 05/30/24 10:42 40 MG Artificial Tears 2 drop Q6HP PRN EACHEYE 05/22/24 16:00 05/26/24 22:20 2 DROP Diagnostic Test (Pha) 1 strip ACHS 05/23/24 17:00 05/30/24 21:37 1 STRIP Insulin Human Regular HS SC 05/23/24 22:00 05/30/24 21:34 6 UNITS Insulin Human Regular AC SC 05/23/24 17:00 05/30/24 18:19 3 UNITS Dextrose 50 ml UD PRN IV 05/23/24 15:00 Enteral Nutritional Formula 240 ml TIDWM PO 05/27/24 18:00 05/30/24 18:00 240 ML Cyclopentolate HCl 1 drop BID EACHEYE 05/28/24 10:00 05/30/24 22:00 1 DROP Piperacillin Sod/ Tazobactam Sod 100 ml @ 25 mls/hr Q8HR IV 05/28/24 22:00 05/30/24 21:39 25 MLS/HR Insulin Glargine 20 units BID@0700,2200 SC 05/29/24 22:00 05/30/24 21:33 20 UNITS Prednisone 20 mg DAILY PO 05/30/24 10:00 05/30/24 10:43 20 MG Fluconazole 100 ml @ 100 mls/hr DAILY@1800 IV 05/30/24 18:00 05/30/24 18:19 100 MLS/HR objective Gen.: Patient lying in bed in no apparent distress. On supplemental oxygen. Head: Normocephalic, atraumatic. Eyes: EOMI/PERRLA. Ears: Normal hearing. Normal anatomy. Neck/trachea: Trachea midline, supple. Nose: Normal external anatomy. Mouth: Moist mucous membranes. Chest: Decreased air entry bilaterally. Coarse wheezing. No rhonchi. Crackles present. Cardiovascular: Positive S1, positive S2. Regular rate and rhythm. Abdomen: Positive bowel sounds in all 4 quadrants. Soft, non-tender, non- distended. : Deferred. Rectal: Deferred. Skin: Warm, dry. Intact. Extremities: 2+ radial pulses bilaterally. No lower extremity edema. Neuro: Awake, alert, oriented x3. No gross motor or sensory deficits. Cranial nerves II through XII intact. Gait not assessed. laboratory and microbiology Laboratory Tests 05/30/24 15:43 Test 05/30/24 15:43 Range/Units Serum Glucose 222 H 74-106 mg/dL Assessment/Plan Impression: Acute on chronic COPD exacerbation Dyspnea Acute on chronic hypoxic respiratory failure Dependence on supplemental oxygen Congestive heart failure Nicotine dependence Hypokalemia Events: Remains on supplemental oxygen, 2 LPM NC Taper O2 as tolerated Improved O2 requirements Continue bronchodilators Continue antibiotics/antifungal Steroids - prednisone d/t hyperglycemia Incentive spirometry On Eliquis Accu-Cheks, ISS. Disposition per hospitalist. CXR on 05/27/24 demonstrates Slight interval improvement in the extensive interstitial and alveolar type opacities of the right lung with unchanged mild interstitial opacities of the left lung. No effusion or pneumothorax. Labs and imaging reviewed. Rest of plan as noted below. Plan: Supplemental oxygen Titrate to keep O2 sats above 92%. Continue bronchodilators. Continue steroids Incentive spirometry Monitor renal function. Monitor electrolytes. Supplement as necessary. Monitor ins and outs. DVT prophylaxis. Prognosis: Poor given patient's multiple co-morbidities. Rest of plan per hospitalist and other consultants. Thank you, Dr. Talamantes for allowing me to participate in this patient's care. Further recommendations will depend on the patient's clinical course. Please do not hesitate to contact me if you have any questions or concerns. This medical document was created using an electronic medical record system with [employer] dictation system. Although these documentations are being carefully reviewed, there may still be some phonetic and typographical changes. The errors are purely typographical, due to imperfection on the software program, and do not reflect any compromise in the patient's medical care. Dietary Evaluation Review Comments: recommendation: 1. smoking cessation 2. Recommend Renal Specific 60g protein restricted 2gNa 3K low phos CCHO-60 g diet if Pt does not need dialysis treatment. Expected Outcomes/Goals: Controlled DM, less uremic symptoms, maintain weight Plan discussed with: Patient, Other (BENSON Harris) SNEHA KUMARI MD May 30, 2024 23:13
[2024-05-31] VITALS (19 sets, daily range): BP systolic 107–139; BP diastolic 6–69; PULSE 69–101; RESP 14–22; TEMP 97.4–99; O2SAT 91–100
[2024-05-31 09:47] LABS: Urine Bacteria FEW /hpf (None Seen); Urine Blood 1+ /uL (Negative); Urine Budding Yeast MANY /hpf (None Seen); Urine Clarity Turbid (Clear); Urine Color Light-Yellow (Yellow); Urine Mucus FEW (None Seen); Urine Protein, UAD TRACE (Negative); Urine Specific Gravity 1.019 (1.001-1.035); Urine Squamous Epithelial Cell FEW /hpf (<5); Urine Urobilinogen Normal (Negative); Urine WBC 66 /hpf (0 - 5); Urine pH 5.5 (5.0-9.0)
--- NOTE | 2024-05-31 17:58 | DVHPN2 ---
Progress Note - Dictate Date Seen: May 31, 2024 Medical Necessity Reason Pt with a Central, PICC or Fol: Yes The following are medically ne: Nova Catheter Reason for nova catheter: Strict I&O Subjective Patient seen and examined at bedside. Remains on supplemental oxygen Overnight events reviewed. vital signs Vital Sign Date Time Temp Pulse Resp B/P (MAP) Pulse Ox O2 Delivery O2 Flow Rate FiO2 05/31/24 17:00 98.3 93 18 130/63 (85) 96 98.3 05/31/24 10:03 Oxymizer 2 N/A Total Intake and Output 05/30/24 05/30/24 05/31/24 15:00 23:00 07:00 Intake Total 100 ml 1160 ml 200 ml Output Total 850 ml 1400 ml Balance 100 ml 310 ml -1200 ml medications Current Medications Medications Dose Ordered Sig/Long Route Start Time Stop Time Status Last Admin Dose Admin Sodium Chloride 10 ml Q8HR IV 05/22/24 14:00 05/31/24 14:27 10 ML Docusate Sodium 100 mg BIDPRN PRN PO 05/22/24 10:30 05/28/24 10:38 100 MG Acetaminophen 650 mg Q6HP PRN PO 05/22/24 10:30 Ondansetron HCl 4 mg Q4HP PRN IV 05/22/24 10:30 Albuterol 2.5 mg Q6H NEB 05/22/24 12:00 05/31/24 11:22 2.5 MG Ipratropium [place] 0.5 mg Q6H NEB 05/22/24 12:00 05/31/24 11:22 0.5 MG Ascorbic Acid 500 mg BID PO 05/22/24 22:00 05/31/24 09:12 500 MG Clopidogrel Bisulfate 75 mg DAILY PO 05/23/24 10:00 05/31/24 09:11 75 MG Atorvastatin Calcium 10 mg HS PO 05/22/24 22:00 05/30/24 22:00 10 MG Patient Own Medication 5 DAILY PO 05/23/24 10:00 05/31/24 10:00 5 Donepezil HCl 10 mg HS PO 05/22/24 22:00 05/30/24 21:37 10 MG Apixaban 2.5 mg BID PO 05/22/24 10:45 05/31/24 09:12 2.5 MG Pantoprazole Sodium 40 mg DAILY IV 05/22/24 11:00 05/31/24 09:12 40 MG Artificial Tears 2 drop Q6HP PRN EACHEYE 05/22/24 16:00 05/26/24 22:20 2 DROP Diagnostic Test (Pha) 1 strip ACHS 05/23/24 17:00 05/31/24 16:27 1 STRIP Insulin Human Regular HS SC 05/23/24 22:00 05/30/24 21:34 6 UNITS Insulin Human Regular AC SC 05/23/24 17:00 05/31/24 16:39 6 UNITS Dextrose 50 ml UD PRN IV 05/23/24 15:00 Enteral Nutritional Formula 240 ml TIDWM PO 05/27/24 18:00 05/31/24 12:00 240 ML Cyclopentolate HCl 1 drop BID EACHEYE 05/28/24 10:00 05/31/24 09:17 1 DROP Piperacillin Sod/ Tazobactam Sod 100 ml @ 25 mls/hr Q8HR IV 05/28/24 22:00 05/31/24 14:27 25 MLS/HR Insulin Glargine 20 units BID@0700,2200 SC 05/29/24 22:00 05/31/24 06:22 20 UNITS Prednisone 20 mg DAILY PO 05/30/24 10:00 05/31/24 09:11 20 MG Fluconazole 100 ml @ 100 mls/hr DAILY@1800 IV 05/30/24 18:00 05/30/24 18:19 100 MLS/HR objective Gen.: Patient lying in bed in no apparent distress. On supplemental oxygen. Head: Normocephalic, atraumatic. Eyes: EOMI/PERRLA. Ears: Normal hearing. Normal anatomy. Neck/trachea: Trachea midline, supple. Nose: Normal external anatomy. Mouth: Moist mucous membranes. Chest: Decreased air entry bilaterally. Coarse wheezing. No rhonchi. Crackles present. Cardiovascular: Positive S1, positive S2. Regular rate and rhythm. Abdomen: Positive bowel sounds in all 4 quadrants. Soft, non-tender, non- distended. : Deferred. Rectal: Deferred. Skin: Warm, dry. Intact. Extremities: 2+ radial pulses bilaterally. No lower extremity edema. Neuro: Awake, alert, oriented x3. No gross motor or sensory deficits. Cranial nerves II through XII intact. Gait not assessed. laboratory and microbiology Laboratory Tests 05/30/24 15:43 Test 05/30/24 15:43 Range/Units Serum Glucose 222 H 74-106 mg/dL Assessment/Plan Impression: Acute on chronic COPD exacerbation Dyspnea Acute on chronic hypoxic respiratory failure Dependence on supplemental oxygen Congestive heart failure Nicotine dependence Hypokalemia Events: Remains on supplemental oxygen, 2 LPM Oxymizer Taper O2 as tolerated Continue bronchodilators Continue antibiotics/antifungal Steroids - prednisone d/t hyperglycemia Incentive spirometry Follow up urine cultures On Eliquis Accu-Cheks, ISS. Diurese PRN Monitor renal function Physical therapy Disposition per hospitalist. CXR on 05/27/24 demonstrates Slight interval improvement in the extensive interstitial and alveolar type opacities of the right lung with unchanged mild interstitial opacities of the left lung. No effusion or pneumothorax. Labs and imaging reviewed. Rest of plan as noted below. Plan: Supplemental oxygen Titrate to keep O2 sats above 92%. Continue bronchodilators. Continue steroids Incentive spirometry Monitor renal function. Monitor electrolytes. Supplement as necessary. Monitor ins and outs. DVT prophylaxis. Prognosis: Poor given patient's multiple co-morbidities. Rest of plan per hospitalist and other consultants. Thank you, Dr. Talamantes for allowing me to participate in this patient's care. Further recommendations will depend on the patient's clinical course. Please do not hesitate to contact me if you have any questions or concerns. This medical document was created using an electronic medical record system with [employer] dictation system. Although these documentations are being carefully reviewed, there may still be some phonetic and typographical changes. The errors are purely typographical, due to imperfection on the software program, and do not reflect any compromise in the patient's medical care. Dietary Evaluation Review Comments: recommendation: 1. smoking cessation 2. Recommend Renal Specific 60g protein restricted 2gNa 3K low phos CCHO-60 g diet if Pt does not need dialysis treatment. Expected Outcomes/Goals: Controlled DM, less uremic symptoms, maintain weight Plan discussed with: Patient, Other (BENSON Vargas) SNEHA KUMARI MD May 31, 2024 17:58
[2024-06-01] VITALS (18 sets, daily range): BP systolic 108–118; BP diastolic 51–62; PULSE 75–96; RESP 16–20; TEMP 97.5–98.1; O2SAT 93–100
--- NOTE | 2024-06-01 22:55 | DVHPN2 ---
Progress Note - Dictate Date Seen: Jun 01, 2024 Medical Necessity Reason Pt with a Central, PICC or Fol: Yes The following are medically ne: Nova Catheter Reason for nova catheter: Strict I&O Subjective Patient seen and examined at bedside. Remains on supplemental oxygen Overnight events reviewed. vital signs Vital Sign Date Time Temp Pulse Resp B/P (MAP) Pulse Ox O2 Delivery O2 Flow Rate FiO2 06/01/24 21:00 97.5 89 20 108/53 (71) 93 97.5 06/01/24 20:00 Nasal Cannula* 2 N/A Oxymizer Total Intake and Output 05/31/24 05/31/24 06/01/24 15:00 23:00 07:00 Intake Total 100 ml 855 ml 360 ml Output Total 1250 ml 850 ml Balance 100 ml -395 ml -490 ml medications Current Medications Medications Dose Ordered Sig/Long Route Start Time Stop Time Status Last Admin Dose Admin Sodium Chloride 10 ml Q8HR IV 05/22/24 14:00 06/01/24 22:05 10 ML Docusate Sodium 100 mg BIDPRN PRN PO 05/22/24 10:30 05/28/24 10:38 100 MG Acetaminophen 650 mg Q6HP PRN PO 05/22/24 10:30 Ondansetron HCl 4 mg Q4HP PRN IV 05/22/24 10:30 Albuterol 2.5 mg Q6H NEB 05/22/24 12:00 06/01/24 19:10 2.5 MG Ipratropium [place] 0.5 mg Q6H NEB 05/22/24 12:00 06/01/24 19:10 0.5 MG Ascorbic Acid 500 mg BID PO 05/22/24 22:00 06/01/24 22:06 500 MG Clopidogrel Bisulfate 75 mg DAILY PO 05/23/24 10:00 06/01/24 09:00 75 MG Atorvastatin Calcium 10 mg HS PO 05/22/24 22:00 06/01/24 22:06 10 MG Patient Own Medication 5 DAILY PO 05/23/24 10:00 06/01/24 09:01 5 Donepezil HCl 10 mg HS PO 05/22/24 22:00 06/01/24 22:07 10 MG Apixaban 2.5 mg BID PO 05/22/24 10:45 06/01/24 22:06 2.5 MG Pantoprazole Sodium 40 mg DAILY IV 05/22/24 11:00 06/01/24 09:02 40 MG Artificial Tears 2 drop Q6HP PRN EACHEYE 05/22/24 16:00 05/26/24 22:20 2 DROP Diagnostic Test (Pha) 1 strip ACHS 05/23/24 17:00 06/01/24 22:14 1 STRIP Insulin Human Regular HS SC 05/23/24 22:00 06/01/24 22:17 6 UNITS Insulin Human Regular AC SC 05/23/24 17:00 06/01/24 17:16 3 UNITS Dextrose 50 ml UD PRN IV 05/23/24 15:00 Enteral Nutritional Formula 240 ml TIDWM PO 05/27/24 18:00 06/01/24 18:00 240 ML Cyclopentolate HCl 1 drop BID EACHEYE 05/28/24 10:00 06/01/24 22:04 1 DROP Piperacillin Sod/ Tazobactam Sod 100 ml @ 25 mls/hr Q8HR IV 05/28/24 22:00 06/01/24 22:08 25 MLS/HR Insulin Glargine 20 units BID@0700,2200 SC 05/29/24 22:00 06/01/24 22:18 20 UNITS Prednisone 20 mg DAILY PO 05/30/24 10:00 06/01/24 09:00 20 MG Fluconazole 100 ml @ 100 mls/hr DAILY@1800 IV 05/30/24 18:00 06/01/24 17:56 100 MLS/HR objective Gen.: Patient lying in bed in no apparent distress. On supplemental oxygen. Head: Normocephalic, atraumatic. Eyes: EOMI/PERRLA. Ears: Normal hearing. Normal anatomy. Neck/trachea: Trachea midline, supple. Nose: Normal external anatomy. Mouth: Moist mucous membranes. Chest: Decreased air entry bilaterally. Coarse wheezing. No rhonchi. Crackles present. Cardiovascular: Positive S1, positive S2. Regular rate and rhythm. Abdomen: Positive bowel sounds in all 4 quadrants. Soft, non-tender, non- distended. : Deferred. Rectal: Deferred. Skin: Warm, dry. Intact. Extremities: 2+ radial pulses bilaterally. No lower extremity edema. Neuro: Awake, alert, oriented x3. No gross motor or sensory deficits. Cranial nerves II through XII intact. Gait not assessed. laboratory and microbiology Laboratory Tests 05/30/24 15:43 Test 05/30/24 15:43 Range/Units Serum Glucose 222 H 74-106 mg/dL Assessment/Plan Impression: Acute on chronic COPD exacerbation Dyspnea Acute on chronic hypoxic respiratory failure Dependence on supplemental oxygen Congestive heart failure Nicotine dependence Hypokalemia Events: Remains on supplemental oxygen, 2 LPM NC Taper O2 as tolerated Continue bronchodilators Continue antibiotics/antifungal Steroids - prednisone d/t hyperglycemia Incentive spirometry Follow up urine cultures On Eliquis Accu-Cheks, ISS. Glucerna for nutritional supplementation Diurese PRN Monitor renal function Physical therapy Protonix for GI prophylaxis Disposition per hospitalist. CXR on 05/27/24 demonstrates Slight interval improvement in the extensive interstitial and alveolar type opacities of the right lung with unchanged mild interstitial opacities of the left lung. No effusion or pneumothorax. Labs and imaging reviewed. Rest of plan as noted below. Plan: Supplemental oxygen Titrate to keep O2 sats above 92%. Continue bronchodilators. Continue steroids Incentive spirometry Monitor renal function. Monitor electrolytes. Supplement as necessary. Monitor ins and outs. DVT prophylaxis. Prognosis: Poor given patient's multiple co-morbidities. Rest of plan per hospitalist and other consultants. Thank you, Dr. Talamantes for allowing me to participate in this patient's care. Further recommendations will depend on the patient's clinical course. Please do not hesitate to contact me if you have any questions or concerns. This medical document was created using an electronic medical record system with [employer] dictation system. Although these documentations are being carefully reviewed, there may still be some phonetic and typographical changes. The errors are purely typographical, due to imperfection on the software program, and do not reflect any compromise in the patient's medical care. Dietary Evaluation Review Comments: recommendation: 1. smoking cessation 2. Recommend Renal Specific 60g protein restricted 2gNa 3K low phos CCHO-60 g diet if Pt does not need dialysis treatment. Expected Outcomes/Goals: Controlled DM, less uremic symptoms, maintain weight Plan discussed with: Patient, Other (BENSON Vargas) SNEHA KUMARI MD Jun 01, 2024 22:55
[2024-06-02] VITALS (19 sets, daily range): BP systolic 108–142; BP diastolic 48–66; PULSE 60–92; RESP 16–20; TEMP 97.6–97.8; O2SAT 94–100
--- NOTE | 2024-06-02 13:52 | DVHPN2 ---
Progress Note - Dictate Date Seen: Jun 01, 2024 Medical Necessity Reason Pt with a Central, PICC or Fol: Yes The following are medically ne: Nova Catheter Reason for nova catheter: Strict I&O Subjective PT WELL KNOWN TO ME SSS S/P PPI AFIB HYPERCOAGULABLE STATE PAH HFrEF CHRONIC EF 45% DIABETES NOW WITH SS COMPLEX OF SOB CXR CONSISTENT WITH INTERSTITIAL LUNG DISEASE COPD EXACERABATION PRODUCTIVE COUGH CONGESTION TROPONIN NEGATIVE BNP WNL vital signs Vital Sign Date Time Temp Pulse Resp B/P (MAP) Pulse Ox O2 Delivery O2 Flow Rate FiO2 06/02/24 12:45 83 18 97 06/02/24 12:40 Nasal Cannula* 2 28 06/02/24 09:00 97.8 130/48 (75) 97.8 Total Intake and Output 06/01/24 06/01/24 06/02/24 15:00 23:00 07:00 Intake Total 400 ml 670 ml 600 ml Output Total 802 ml 1580 ml Balance 400 ml -132 ml -980 ml medications Current Medications Medications Dose Ordered Sig/Long Route Start Time Stop Time Status Last Admin Dose Admin Sodium Chloride 10 ml Q8HR IV 05/22/24 14:00 06/02/24 05:30 10 ML Docusate Sodium 100 mg BIDPRN PRN PO 05/22/24 10:30 05/28/24 10:38 100 MG Acetaminophen 650 mg Q6HP PRN PO 05/22/24 10:30 Ondansetron HCl 4 mg Q4HP PRN IV 05/22/24 10:30 Albuterol 2.5 mg Q6H NEB 05/22/24 12:00 06/02/24 12:40 2.5 MG Ipratropium [place] 0.5 mg Q6H NEB 05/22/24 12:00 06/02/24 12:40 0.5 MG Ascorbic Acid 500 mg BID PO 05/22/24 22:00 06/02/24 09:07 500 MG Clopidogrel Bisulfate 75 mg DAILY PO 05/23/24 10:00 06/02/24 09:06 75 MG Atorvastatin Calcium 10 mg HS PO 05/22/24 22:00 06/01/24 22:06 10 MG Patient Own Medication 5 DAILY PO 05/23/24 10:00 06/02/24 09:08 5 Donepezil HCl 10 mg HS PO 05/22/24 22:00 06/01/24 22:07 10 MG Apixaban 2.5 mg BID PO 05/22/24 10:45 06/02/24 09:06 2.5 MG Pantoprazole Sodium 40 mg DAILY IV 05/22/24 11:00 06/02/24 09:08 40 MG Artificial Tears 2 drop Q6HP PRN EACHEYE 05/22/24 16:00 05/26/24 22:20 2 DROP Diagnostic Test (Pha) 1 strip ACHS 05/23/24 17:00 06/02/24 11:30 1 STRIP Insulin Human Regular HS SC 05/23/24 22:00 06/01/24 22:17 6 UNITS Insulin Human Regular AC SC 05/23/24 17:00 06/01/24 17:16 3 UNITS Dextrose 50 ml UD PRN IV 05/23/24 15:00 Enteral Nutritional Formula 240 ml TIDWM PO 05/27/24 18:00 06/02/24 11:50 240 ML Cyclopentolate HCl 1 drop BID EACHEYE 05/28/24 10:00 06/02/24 09:08 1 DROP Piperacillin Sod/ Tazobactam Sod 100 ml @ 25 mls/hr Q8HR IV 05/28/24 22:00 06/02/24 05:35 25 MLS/HR Insulin Glargine 20 units BID@0700,2200 SC 05/29/24 22:00 06/02/24 06:33 20 UNITS Prednisone 20 mg DAILY PO 05/30/24 10:00 06/02/24 09:06 20 MG Fluconazole 100 ml @ 100 mls/hr DAILY@1800 IV 05/30/24 18:00 06/01/24 17:56 100 MLS/HR laboratory and microbiology Laboratory Tests 05/30/24 15:43 Test 05/30/24 15:43 Range/Units Serum Glucose 222 H 74-106 mg/dL Problem List SSS S/P PPI PAH HFrEF CHRONIC EF 45% NOW WITH SS COMPLEX OF SOB CXR CONSISTENT WITH INTERSTITIAL LUNG DISEASE COPD EXACERABATION PRODUCTIVE COUGH CONGESTION TROPONIN NEGATIVE BNP WNL Assessment/Plan INHALER STEROIDS ABX START REVATIO 20 MG TID LASIX IV DC SOLUMEDROL DC IV FLUID CORRECT HYPOKALEMIA ANOTHER DOSE OF LASIX CORRECT K ENSURE PHYSICAL THERAPY CHANGE ABX TO ZOSYN SOLUMEDROL start lantus regimen will titrate off steroids check cbc with change in abx regimen STILL ELEVATED WBC ELEVATED BNP RECHECK LABS BLD GLC BETTER DC SOLUMEDROL STILL WITH LEUKOCYTOSIS CXR NEGATIVE UA CHANGE ABX AZTREONAM AND VANCO Dietary Evaluation Review Comments: recommendation: 1. smoking cessation 2. Recommend Renal Specific 60g protein restricted 2gNa 3K low phos CCHO-60 g diet if Pt does not need dialysis treatment. Expected Outcomes/Goals: Controlled DM, less uremic symptoms, maintain weight Plan discussed with: Patient Critical Care Time(min): 35 WILEY SALINAS MD Jun 02, 2024 13:52
[2024-06-02] MEDS ORDERED: VANCOMYCIN PER PHARMACY 0 MG IV SCH (14:00)
[2024-06-02] MEDS: AZTREONAM 1GM INJ 1 GM in D5W 5% 50 ML IV SCH (14:57)
[2024-06-02 15:18] LABS: Basophils # (auto) 0 10 ^3/uL (0-0.2); Basophils % (auto) 0.2 % (0.0-2.0); Eosinophils # (auto) 0 10 ^3/uL (0-0.8); Eosinophils % (auto) 0.2 % (0.0-7.0); Hematocrit 34.1 % (36.0-46.0); Lymphocytes # (auto) 0.2 10 ^3/uL (0.4-5.4); Lymphocytes % (auto) 1.4 % (10.0-50.0); Mean Corpuscular Hemoglobin 27.7 pg (28.0-32.0); Mean Corpuscular Hgb Conc. 32.3 g/dL (32.0-36.0); Mean Corpuscular Volume 85.7 fL (80.0-100.0); Monocytes # (auto) 0.4 10 ^3/uL (0-1.3); Monocytes % (auto) 2.3 % (0.0-12.0); Neutrophils % (auto) 95.9 % (37.0-80.0); Platelet Count (auto) 450 10^3/uL (140-450); Red Blood Cells 3.98 10^6/uL (4.0-5.20); Red Cell Distribution Width 17.9 % (11.8-14.3); White Blood Cell 17.7 10^3/uL (4.4-10.8)
[2024-06-02 15:36] LABS: Anion Gap 5 (5-15); Aspartate Aminotransferase 24 U/L (13-40); BUN/Creatinine Ratio 26.1 (10.0-20.0); Carbon Dioxide 26 mmol/L (20-31); Chloride 100 mmol/L (98-107)
[2024-06-02 15:37] LABS: Bilirubin, Total 0.4 mg/dL (0.2-1.0)
[2024-06-02 15:43] LABS: Alanine Aminotransferase 55 U/L (7-40); Albumin 3.1 g/dL (3.2-4.8); Alkaline Phosphatase 135 U/L (46-116); Blood Urea Nitrogen 37 mg/dL (9-23); Glucose 269 mg/dL (74-106); Potassium 5.1 mmol/L (3.5-5.1); Sodium 131 mmol/L (136-145); Total Protein 5.4 g/dL (5.7-8.2)
[2024-06-02] MEDS: VANCOMYCIN 750MG KIT 100 ML IV ONE (16:21)
[2024-06-02 16:23] LABS: Urine Bacteria FEW /hpf (None Seen); Urine Blood Negative /uL (Negative); Urine Budding Yeast MANY /hpf (None Seen); Urine Clarity Clear (Clear); Urine Color Light-Yellow (Yellow); Urine Protein, UAD Negative (Negative); Urine Specific Gravity 1.019 (1.001-1.035); Urine Squamous Epithelial Cell FEW /hpf (<5); Urine Urobilinogen Normal (Negative); Urine WBC 5 /hpf (0 - 5); Urine pH 5.5 (5.0-9.0)
--- NOTE | 2024-06-02 23:06 | DVHPN2 ---
Progress Note - Dictate Date Seen: Jun 02, 2024 Medical Necessity Reason Pt with a Central, PICC or Fol: Yes The following are medically ne: Nova Catheter Reason for nova catheter: Strict I&O Subjective Patient seen and examined at bedside. Remains on supplemental oxygen Overnight events reviewed. vital signs Vital Sign Date Time Temp Pulse Resp B/P (MAP) Pulse Ox O2 Delivery O2 Flow Rate FiO2 06/02/24 21:00 97.8 79 19 142/66 (91) 99 97.8 06/02/24 20:00 Nasal Cannula* 2 N/A Oxymizer Total Intake and Output 06/01/24 06/01/24 06/02/24 15:00 23:00 07:00 Intake Total 400 ml 670 ml 600 ml Output Total 802 ml 1580 ml Balance 400 ml -132 ml -980 ml medications Current Medications Medications Dose Ordered Sig/Long Route Start Time Stop Time Status Last Admin Dose Admin Sodium Chloride 10 ml Q8HR IV 05/22/24 14:00 06/02/24 21:56 10 ML Docusate Sodium 100 mg BIDPRN PRN PO 05/22/24 10:30 05/28/24 10:38 100 MG Acetaminophen 650 mg Q6HP PRN PO 05/22/24 10:30 Ondansetron HCl 4 mg Q4HP PRN IV 05/22/24 10:30 Albuterol 2.5 mg Q6H NEB 05/22/24 12:00 06/02/24 18:03 2.5 MG Ipratropium [place] 0.5 mg Q6H NEB 05/22/24 12:00 06/02/24 18:03 0.5 MG Ascorbic Acid 500 mg BID PO 05/22/24 22:00 06/02/24 21:54 500 MG Clopidogrel Bisulfate 75 mg DAILY PO 05/23/24 10:00 06/02/24 09:06 75 MG Atorvastatin Calcium 10 mg HS PO 05/22/24 22:00 06/02/24 21:55 10 MG Patient Own Medication 5 DAILY PO 05/23/24 10:00 06/02/24 09:08 5 Donepezil HCl 10 mg HS PO 05/22/24 22:00 06/02/24 21:54 10 MG Apixaban 2.5 mg BID PO 05/22/24 10:45 06/02/24 21:55 2.5 MG Pantoprazole Sodium 40 mg DAILY IV 05/22/24 11:00 06/02/24 09:08 40 MG Artificial Tears 2 drop Q6HP PRN EACHEYE 05/22/24 16:00 05/26/24 22:20 2 DROP Diagnostic Test (Pha) 1 strip ACHS 05/23/24 17:00 06/02/24 22:02 1 STRIP Insulin Human Regular HS SC 05/23/24 22:00 06/02/24 22:10 2 UNITS Insulin Human Regular AC SC 05/23/24 17:00 06/02/24 16:33 9 UNITS Dextrose 50 ml UD PRN IV 05/23/24 15:00 Enteral Nutritional Formula 240 ml TIDWM PO 05/27/24 18:00 06/02/24 17:55 240 ML Cyclopentolate HCl 1 drop BID EACHEYE 05/28/24 10:00 06/02/24 21:52 1 DROP Piperacillin Sod/ Tazobactam Sod 100 ml @ 25 mls/hr Q8HR IV 05/28/24 22:00 Hold 06/02/24 13:49 25 MLS/HR Insulin Glargine 20 units BID@0700,2200 SC 05/29/24 22:00 06/02/24 22:10 20 UNITS Prednisone 20 mg DAILY PO 05/30/24 10:00 06/02/24 09:06 20 MG Fluconazole 100 ml @ 100 mls/hr DAILY@1800 IV 05/30/24 18:00 06/02/24 17:37 100 MLS/HR Vancomycin HCl 0 ml @ 0 mls/hr UD IV 06/02/24 14:00 Aztreonam 1 gm/ Dextrose 50 ml @ 100 mls/hr Q8HR IV 06/02/24 14:00 06/02/24 22:26 100 MLS/HR objective Gen.: Patient lying in bed in no apparent distress. On supplemental oxygen. Head: Normocephalic, atraumatic. Eyes: EOMI/PERRLA. Ears: Normal hearing. Normal anatomy. Neck/trachea: Trachea midline, supple. Nose: Normal external anatomy. Mouth: Moist mucous membranes. Chest: Decreased air entry bilaterally. Coarse wheezing. No rhonchi. Crackles present. Cardiovascular: Positive S1, positive S2. Regular rate and rhythm. Abdomen: Positive bowel sounds in all 4 quadrants. Soft, non-tender, non- distended. : Deferred. Rectal: Deferred. Skin: Warm, dry. Intact. Extremities: 2+ radial pulses bilaterally. No lower extremity edema. Neuro: Awake, alert, oriented x3. No gross motor or sensory deficits. Cranial nerves II through XII intact. Gait not assessed. laboratory and microbiology Laboratory Tests 06/02/24 15:00 Test 06/02/24 15:00 Range/Units Serum Glucose 269 H 74-106 mg/dL Assessment/Plan Impression: Acute on chronic COPD exacerbation Dyspnea Acute on chronic hypoxic respiratory failure Dependence on supplemental oxygen Congestive heart failure Nicotine dependence Hypokalemia Events: Remains on supplemental oxygen, 2 LPM NC Taper O2 as tolerated WBC trending down - 17.7 K Continue bronchodilators Continue antibiotics/antifungal Steroids - prednisone PO d/t hyperglycemia Incentive spirometry On Eliquis Accu-Cheks, ISS. Glucerna for nutritional supplementation Diurese PRN Monitor renal function - slight trend up in creatinine Physical therapy Protonix for GI prophylaxis Disposition per hospitalist. CXR on 05/27/24 demonstrates Slight interval improvement in the extensive interstitial and alveolar type opacities of the right lung with unchanged mild interstitial opacities of the left lung. No effusion or pneumothorax. Labs and imaging reviewed. Rest of plan as noted below. Plan: Supplemental oxygen Titrate to keep O2 sats above 92%. Continue bronchodilators. Continue steroids Incentive spirometry Monitor renal function. Monitor electrolytes. Supplement as necessary. Monitor ins and outs. DVT prophylaxis. Prognosis: Poor given patient's multiple co-morbidities. Rest of plan per hospitalist and other consultants. Thank you, Dr. Talamantes for allowing me to participate in this patient's care. Further recommendations will depend on the patient's clinical course. Please do not hesitate to contact me if you have any questions or concerns. This medical document was created using an electronic medical record system with [employer] dictation system. Although these documentations are being carefully reviewed, there may still be some phonetic and typographical changes. The errors are purely typographical, due to imperfection on the software program, and do not reflect any compromise in the patient's medical care. Dietary Evaluation Review Comments: recommendation: 1. smoking cessation 2. Recommend Renal Specific 60g protein restricted 2gNa 3K low phos CCHO-60 g diet if Pt does not need dialysis treatment. Expected Outcomes/Goals: Controlled DM, less uremic symptoms, maintain weight Plan discussed with: Patient, Other (BENSON Vargas) SNEHA KUMARI MD Jun 02, 2024 23:06
[2024-06-03] VITALS (15 sets, daily range): BP systolic 121–141; BP diastolic 57–81; PULSE 69–92; RESP 17–19; TEMP 97.5–99.1; O2SAT 93–100
[2024-06-03 06:16] LABS: Basophils # (auto) 0 10 ^3/uL (0-0.2); Basophils % (auto) 0.1 % (0.0-2.0); Eosinophils # (auto) 0.1 10 ^3/uL (0-0.8); Eosinophils % (auto) 0.8 % (0.0-7.0); Hematocrit 32.3 % (36.0-46.0); Hemoglobin 10.6 g/dL (12.2-16.2); Lymphocytes # (auto) 0.9 10 ^3/uL (0.4-5.4); Lymphocytes % (auto) 6.8 % (10.0-50.0); Mean Corpuscular Hemoglobin 28.4 pg (28.0-32.0); Mean Corpuscular Hgb Conc. 32.7 g/dL (32.0-36.0); Monocytes # (auto) 0.8 10 ^3/uL (0-1.3); Monocytes % (auto) 6.2 % (0.0-12.0); Neutrophils # (auto) 11.6 10 ^3/uL (1.6-8.6); Neutrophils % (auto) 86.1 % (37.0-80.0); Nucleated Red Blood Cells % 0.1 %; Platelet Count (auto) 411 10^3/uL (140-450); Red Blood Cells 3.72 10^6/uL (4.0-5.20); Red Cell Distribution Width 18.1 % (11.8-14.3); White Blood Cell 13.5 10^3/uL (4.4-10.8)
[2024-06-03] MEDS ORDERED: IOHEXOL 300 MG/ML 100ML BOTTLE IJ ONE (08:00)
--- NOTE | 2024-06-03 10:38 | DVHPN2 ---
Progress Note - Dictate Date Seen: Jun 03, 2024 Medical Necessity Reason Pt with a Central, PICC or Fol: Yes The following are medically ne: Nova Catheter Reason for nova catheter: Strict I&O Subjective PT WELL KNOWN TO ME SSS S/P PPI AFIB HYPERCOAGULABLE STATE PAH HFrEF CHRONIC EF 45% DIABETES NOW WITH SS COMPLEX OF SOB CXR CONSISTENT WITH INTERSTITIAL LUNG DISEASE COPD EXACERABATION PRODUCTIVE COUGH CONGESTION TROPONIN NEGATIVE BNP WNL vital signs Vital Sign Date Time Temp Pulse Resp B/P (MAP) Pulse Ox O2 Delivery O2 Flow Rate FiO2 06/03/24 06:40 74 18 100 06/03/24 06:35 Nasal Cannula 2.0 06/03/24 06:35 28 06/03/24 05:00 98.0 135/68 (90) 98.0 Total Intake and Output 06/02/24 06/02/24 06/03/24 15:00 23:00 07:00 Intake Total 700 ml 1105 ml Output Total 3 ml 3200 ml Balance 697 ml -2095 ml medications Current Medications Medications Dose Ordered Sig/Long Route Start Time Stop Time Status Last Admin Dose Admin Sodium Chloride 10 ml Q8HR IV 05/22/24 14:00 06/03/24 06:02 10 ML Docusate Sodium 100 mg BIDPRN PRN PO 05/22/24 10:30 05/28/24 10:38 100 MG Acetaminophen 650 mg Q6HP PRN PO 05/22/24 10:30 Ondansetron HCl 4 mg Q4HP PRN IV 05/22/24 10:30 Albuterol 2.5 mg Q6H NEB 05/22/24 12:00 06/03/24 06:35 2.5 MG Ipratropium [place] 0.5 mg Q6H NEB 05/22/24 12:00 06/03/24 06:35 0.5 MG Ascorbic Acid 500 mg BID PO 05/22/24 22:00 06/02/24 21:54 500 MG Clopidogrel Bisulfate 75 mg DAILY PO 05/23/24 10:00 06/02/24 09:06 75 MG Atorvastatin Calcium 10 mg HS PO 05/22/24 22:00 06/02/24 21:55 10 MG Patient Own Medication 5 DAILY PO 05/23/24 10:00 06/02/24 09:08 5 Donepezil HCl 10 mg HS PO 05/22/24 22:00 06/02/24 21:54 10 MG Apixaban 2.5 mg BID PO 05/22/24 10:45 06/02/24 21:55 2.5 MG Pantoprazole Sodium 40 mg DAILY IV 05/22/24 11:00 06/02/24 09:08 40 MG Artificial Tears 2 drop Q6HP PRN EACHEYE 05/22/24 16:00 05/26/24 22:20 2 DROP Diagnostic Test (Pha) 1 strip ACHS 05/23/24 17:00 06/03/24 06:00 1 STRIP Insulin Human Regular HS SC 05/23/24 22:00 06/02/24 22:10 2 UNITS Insulin Human Regular AC SC 05/23/24 17:00 06/02/24 16:33 9 UNITS Dextrose 50 ml UD PRN IV 05/23/24 15:00 Enteral Nutritional Formula 240 ml TIDWM PO 05/27/24 18:00 06/02/24 17:55 240 ML Cyclopentolate HCl 1 drop BID EACHEYE 05/28/24 10:00 06/02/24 21:52 1 DROP Piperacillin Sod/ Tazobactam Sod 100 ml @ 25 mls/hr Q8HR IV 05/28/24 22:00 Hold 06/02/24 13:49 25 MLS/HR Insulin Glargine 20 units BID@0700,2200 SC 05/29/24 22:00 06/02/24 22:10 20 UNITS Prednisone 20 mg DAILY PO 05/30/24 10:00 06/02/24 09:06 20 MG Fluconazole 100 ml @ 100 mls/hr DAILY@1800 IV 05/30/24 18:00 06/02/24 17:37 100 MLS/HR Vancomycin HCl 0 ml @ 0 mls/hr UD IV 06/02/24 14:00 Aztreonam 1 gm/ Dextrose 50 ml @ 100 mls/hr Q8HR IV 06/02/24 14:00 06/03/24 06:00 100 MLS/HR laboratory and microbiology Laboratory Tests 06/03/24 05:30 06/02/24 15:00 Test 06/02/24 15:00 Range/Units Serum Glucose 269 H 74-106 mg/dL Problem List SSS S/P PPI PAH HFrEF CHRONIC EF 45% NOW WITH SS COMPLEX OF SOB CXR CONSISTENT WITH INTERSTITIAL LUNG DISEASE COPD EXACERABATION PRODUCTIVE COUGH CONGESTION TROPONIN NEGATIVE BNP WNL Assessment/Plan INHALER STEROIDS ABX START REVATIO 20 MG TID LASIX IV DC SOLUMEDROL DC IV FLUID CORRECT HYPOKALEMIA ANOTHER DOSE OF LASIX CORRECT K ENSURE PHYSICAL THERAPY CHANGE ABX TO ZOSYN SOLUMEDROL start lantus regimen will titrate off steroids check cbc with change in abx regimen STILL ELEVATED WBC ELEVATED BNP RECHECK LABS BLD GLC BETTER DC SOLUMEDROL STILL WITH LEUKOCYTOSIS CXR NEGATIVE UA CHANGE ABX AZTREONAM AND VANCO WITH CHANGE IN ABX LEUKOCYTOSIS HAS IMPROVED PT CT ABD PELVIS RESULTS PENDING Dietary Evaluation Review Comments: recommendation: 1. smoking cessation 2. Recommend Renal Specific 60g protein restricted 2gNa 3K low phos CCHO-60 g diet if Pt does not need dialysis treatment. Expected Outcomes/Goals: Controlled DM, less uremic symptoms, maintain weight Plan discussed with: Patient Critical Care Time(min): 35 WILEY SALINAS MD Jun 03, 2024 10:38
--- NOTE | 2024-06-03 11:52 | DVH ---
Procedure: CT CT AB PELVIS W WO CON-IV ONLY 06/03/2024 08:07 AM Indication: LEUKOCYTOSIS, ABD PAIN Comparison Study: None available at time of dictation. Technique: Axial images were obtained and reformatted in coronal and sagittal planes. All CT scans at this medical facility are performed using dose modulation techniques as appropriate t o a performed exam including the following: Automated exposure control was utilized; adjustment of th e MA and/or KV according to patient size; and use of iterative reconstruction technique. CT Dose: CTDI volume is 5.31 mGy. Dose-length product is 503.44 mGy*cm FINDINGS: Lower Chest: Small bilateral pleural effusions and adjacent pulmonary opacities noted. The heart is normal in size. Coronary artery calcification noted. Pacer wires are seen extending to the right ca rdiac chambers. Hepatobiliary: Liver parenchyma appears mildly dense measuring an average of 77 Hounsfield units. No discrete lesion in this unenhanced study. No intrahepatic or extrahepatic ductal dilatation. No calci fied gallstones. Spleen: Unremarkable. Pancreas: Unremarkable. Adrenal Glands: Unremarkable. tract: The kidneys are normal in size bilaterally without hydronephrosis or nephrolithiasis. Blad kajal is partially decompressed with a Salas catheter and cannot be adequately assessed. GI tract: The stomach is grossly normal in appearance. No evidence of small bowel obstruction. Scatte red colonic diverticula are noted without evidence of diverticulitis. The appendix is normal. Lymphatics: No mesenteric, retroperitoneal or periportal lymphadenopathy. Vasculature: The abdominal aorta is normal in caliber. Diffuse calcified plaque formation is noted. Pelvic Organs: Unremarkable Bones/soft tissues: No acute abnormality. Multilevel degenerative changes of the lumbar spine noted. Diffuse body wall edema. Other: None. IMPRESSION: 1. Small bilateral pleural effusions mild adjacent pulmonary opacities may represent compressive atel ectasis or pneumonia. 2. No CT evidence of acute abnormality in the abdomen and pelvis. 3. Mild diffuse increase in attenuation of the liver that may represent iron deposition, copper depos ition, glycogen storage disease, medications such as amiodarone , gold therapy or prior Thorotrast ad ministration. Recommend clinical correlation. 4. Moderate fecal retention. 5. Diffuse body wall edema.
[2024-06-03] MEDS: VANCOMYCIN 750MG KIT 100 ML IV ONE (20:29)
--- NOTE | 2024-06-03 22:30 | DVHPN2 ---
Progress Note - Dictate Date Seen: Jun 03, 2024 Medical Necessity Reason Pt with a Central, PICC or Fol: Yes The following are medically ne: Nova Catheter Reason for nova catheter: Strict I&O Subjective Patient seen and examined at bedside. Remains on supplemental oxygen Overnight events reviewed. vital signs Vital Sign Date Time Temp Pulse Resp B/P (MAP) Pulse Ox O2 Delivery O2 Flow Rate FiO2 06/03/24 20:00 18 Nasal Cannula* 2 N/A Oxymizer 06/03/24 19:21 92 100 06/03/24 17:00 99.1 125/81 (96) 99.1 Total Intake and Output 06/02/24 06/02/24 06/03/24 15:00 23:00 07:00 Intake Total 700 ml 1105 ml Output Total 3 ml 3200 ml Balance 697 ml -2095 ml medications Current Medications Medications Dose Ordered Sig/Long Route Start Time Stop Time Status Last Admin Dose Admin Sodium Chloride 10 ml Q8HR IV 05/22/24 14:00 06/03/24 21:25 10 ML Docusate Sodium 100 mg BIDPRN PRN PO 05/22/24 10:30 05/28/24 10:38 100 MG Acetaminophen 650 mg Q6HP PRN PO 05/22/24 10:30 Ondansetron HCl 4 mg Q4HP PRN IV 05/22/24 10:30 Albuterol 2.5 mg Q6H NEB 05/22/24 12:00 06/03/24 19:11 2.5 MG Ipratropium [place] 0.5 mg Q6H NEB 05/22/24 12:00 06/03/24 19:11 0.5 MG Ascorbic Acid 500 mg BID PO 05/22/24 22:00 06/03/24 21:24 500 MG Clopidogrel Bisulfate 75 mg DAILY PO 05/23/24 10:00 06/03/24 11:30 75 MG Atorvastatin Calcium 10 mg HS PO 05/22/24 22:00 06/03/24 21:24 10 MG Patient Own Medication 5 DAILY PO 05/23/24 10:00 06/03/24 11:33 5 Donepezil HCl 10 mg HS PO 05/22/24 22:00 06/03/24 21:24 10 MG Apixaban 2.5 mg BID PO 05/22/24 10:45 06/03/24 21:24 2.5 MG Pantoprazole Sodium 40 mg DAILY IV 05/22/24 11:00 06/03/24 11:30 40 MG Artificial Tears 2 drop Q6HP PRN EACHEYE 05/22/24 16:00 05/26/24 22:20 2 DROP Diagnostic Test (Pha) 1 strip ACHS 05/23/24 17:00 06/03/24 21:25 1 STRIP Insulin Human Regular HS SC 05/23/24 22:00 06/03/24 21:29 6 UNITS Insulin Human Regular AC SC 05/23/24 17:00 06/03/24 18:48 3 UNITS Dextrose 50 ml UD PRN IV 05/23/24 15:00 Enteral Nutritional Formula 240 ml TIDWM PO 05/27/24 18:00 06/03/24 18:00 240 ML Cyclopentolate HCl 1 drop BID EACHEYE 05/28/24 10:00 06/03/24 21:33 1 DROP Piperacillin Sod/ Tazobactam Sod 100 ml @ 25 mls/hr Q8HR IV 05/28/24 22:00 Hold 06/02/24 13:49 25 MLS/HR Insulin Glargine 20 units BID@0700,2200 SC 05/29/24 22:00 06/03/24 21:28 20 UNITS Prednisone 20 mg DAILY PO 05/30/24 10:00 06/03/24 11:30 20 MG Fluconazole 100 ml @ 100 mls/hr DAILY@1800 IV 05/30/24 18:00 06/03/24 18:41 100 MLS/HR Vancomycin HCl 0 ml @ 0 mls/hr UD IV 06/02/24 14:00 Aztreonam 1 gm/ Dextrose 50 ml @ 100 mls/hr Q8HR IV 06/02/24 14:00 06/03/24 21:41 100 MLS/HR objective Gen.: Patient lying in bed in no apparent distress. On supplemental oxygen. Head: Normocephalic, atraumatic. Eyes: EOMI/PERRLA. Ears: Normal hearing. Normal anatomy. Neck/trachea: Trachea midline, supple. Nose: Normal external anatomy. Mouth: Moist mucous membranes. Chest: Decreased air entry bilaterally. Coarse wheezing. No rhonchi. Crackles present. Cardiovascular: Positive S1, positive S2. Regular rate and rhythm. Abdomen: Positive bowel sounds in all 4 quadrants. Soft, non-tender, non- distended. : Deferred. Rectal: Deferred. Skin: Warm, dry. Intact. Extremities: 2+ radial pulses bilaterally. No lower extremity edema. Neuro: Awake, alert, oriented x3. No gross motor or sensory deficits. Cranial nerves II through XII intact. Gait not assessed. laboratory and microbiology Laboratory Tests 06/03/24 05:30 06/02/24 15:00 Test 06/02/24 15:00 Range/Units Serum Glucose 269 H 74-106 mg/dL Assessment/Plan Impression: Acute on chronic COPD exacerbation Dyspnea Acute on chronic hypoxic respiratory failure Dependence on supplemental oxygen Congestive heart failure Nicotine dependence Hypokalemia Events: Remains on supplemental oxygen, 2 LPM NC Taper O2 as tolerated Patient is out of bed to chair. Continue bronchodilators Continue antibiotics/antifungal Steroids - prednisone PO d/t hyperglycemia Incentive spirometry On Eliquis WBC trending down - 13.5 K Accu-Cheks, ISS. Glucerna for nutritional supplementation Diurese PRN Monitor renal function Physical therapy Protonix for GI prophylaxis Disposition per hospitalist. CXR on 05/27/24 demonstrates Slight interval improvement in the extensive interstitial and alveolar type opacities of the right lung with unchanged mild interstitial opacities of the left lung. No effusion or pneumothorax. Labs and imaging reviewed. Rest of plan as noted below. Plan: Supplemental oxygen Titrate to keep O2 sats above 92%. Continue bronchodilators. Continue steroids Incentive spirometry Monitor renal function. Monitor electrolytes. Supplement as necessary. Monitor ins and outs. DVT prophylaxis. Prognosis: Poor given patient's multiple co-morbidities. Rest of plan per hospitalist and other consultants. Thank you, Dr. Talamantes for allowing me to participate in this patient's care. Further recommendations will depend on the patient's clinical course. Please do not hesitate to contact me if you have any questions or concerns. This medical document was created using an electronic medical record system with [employer] system. Although these documentations are being carefully reviewed, there may still be some phonetic and typographical changes. The errors are purely typographical, due to imperfection on the software program, and do not reflect any compromise in the patient's medical care. Dietary Evaluation Review Comments: recommendation: 1. smoking cessation 2. Recommend Renal Specific 60g protein restricted 2gNa 3K low phos CCHO-60 g diet if Pt does not need dialysis treatment. Expected Outcomes/Goals: Controlled DM, less uremic symptoms, maintain weight Plan discussed with: Patient, Other (BENSON Saunders) SNEHA KUMARI MD Jun 03, 2024 22:30
[2024-06-04] VITALS (19 sets, daily range): BP systolic 80–128; BP diastolic 53–58; PULSE 72–93; RESP 17–19; TEMP 97.9–98.1; O2SAT 93–100
[2024-06-04 07:10] LABS: Basophils # (auto) 0 10 ^3/uL (0-0.2); Basophils % (auto) 0.1 % (0.0-2.0); Eosinophils # (auto) 0.1 10 ^3/uL (0-0.8); Eosinophils % (auto) 0.6 % (0.0-7.0); Hematocrit 29.6 % (36.0-46.0); Hemoglobin 9.8 g/dL (12.2-16.2); Lymphocytes # (auto) 0.8 10 ^3/uL (0.4-5.4); Lymphocytes % (auto) 6.7 % (10.0-50.0); Mean Corpuscular Hemoglobin 28.2 pg (28.0-32.0); Mean Corpuscular Hgb Conc. 33.2 g/dL (32.0-36.0); Mean Corpuscular Volume 84.9 fL (80.0-100.0); Monocytes # (auto) 0.9 10 ^3/uL (0-1.3); Monocytes % (auto) 7.8 % (0.0-12.0); Neutrophils # (auto) 10.3 10 ^3/uL (1.6-8.6); Neutrophils % (auto) 84.8 % (37.0-80.0); Platelet Count (auto) 404 10^3/uL (140-450); Red Blood Cells 3.49 10^6/uL (4.0-5.20); Red Cell Distribution Width 17.9 % (11.8-14.3); White Blood Cell 12.1 10^3/uL (4.4-10.8)
--- NOTE | 2024-06-04 13:02 | DVHPN2 ---
Progress Note - Dictate Date Seen: Jun 04, 2024 Medical Necessity Reason Pt with a Central, PICC or Fol: Yes The following are medically ne: Nova Catheter Reason for nova catheter: Strict I&O Subjective PT WELL KNOWN TO ME SSS S/P PPI AFIB HYPERCOAGULABLE STATE PAH HFrEF CHRONIC EF 45% DIABETES NOW WITH SS COMPLEX OF SOB CXR CONSISTENT WITH INTERSTITIAL LUNG DISEASE COPD EXACERABATION PRODUCTIVE COUGH CONGESTION TROPONIN NEGATIVE BNP WNL vital signs Vital Sign Date Time Temp Pulse Resp B/P (MAP) Pulse Ox O2 Delivery O2 Flow Rate FiO2 06/04/24 11:30 84 18 100 06/04/24 11:20 Nasal Cannula* 2 28 06/04/24 09:00 97.9 80/53 (62) 97.9 Total Intake and Output 06/03/24 06/03/24 06/04/24 15:00 23:00 07:00 Intake Total 600 ml 1600 ml 1200 ml Output Total 1450 ml 950 ml Balance 600 ml 150 ml 250 ml medications Current Medications Medications Dose Ordered Sig/Long Route Start Time Stop Time Status Last Admin Dose Admin Sodium Chloride 10 ml Q8HR IV 05/22/24 14:00 06/04/24 06:12 10 ML Docusate Sodium 100 mg BIDPRN PRN PO 05/22/24 10:30 05/28/24 10:38 100 MG Acetaminophen 650 mg Q6HP PRN PO 05/22/24 10:30 Ondansetron HCl 4 mg Q4HP PRN IV 05/22/24 10:30 Albuterol 2.5 mg Q6H NEB 05/22/24 12:00 06/04/24 11:20 2.5 MG Ipratropium [place] 0.5 mg Q6H NEB 05/22/24 12:00 06/04/24 11:20 0.5 MG Ascorbic Acid 500 mg BID PO 05/22/24 22:00 06/04/24 11:07 500 MG Clopidogrel Bisulfate 75 mg DAILY PO 05/23/24 10:00 06/04/24 11:07 75 MG Atorvastatin Calcium 10 mg HS PO 05/22/24 22:00 06/03/24 21:24 10 MG Patient Own Medication 5 DAILY PO 05/23/24 10:00 06/04/24 11:18 5 Donepezil HCl 10 mg HS PO 05/22/24 22:00 06/03/24 21:24 10 MG Apixaban 2.5 mg BID PO 05/22/24 10:45 06/04/24 11:08 2.5 MG Pantoprazole Sodium 40 mg DAILY IV 05/22/24 11:00 06/04/24 11:07 40 MG Artificial Tears 2 drop Q6HP PRN EACHEYE 05/22/24 16:00 05/26/24 22:20 2 DROP Diagnostic Test (Pha) 1 strip ACHS 05/23/24 17:00 06/04/24 11:12 1 STRIP Insulin Human Regular HS SC 05/23/24 22:00 06/03/24 21:29 6 UNITS Insulin Human Regular AC SC 05/23/24 17:00 06/04/24 11:28 6 UNITS Dextrose 50 ml UD PRN IV 05/23/24 15:00 Enteral Nutritional Formula 240 ml TIDWM PO 05/27/24 18:00 06/04/24 08:00 240 ML Cyclopentolate HCl 1 drop BID EACHEYE 05/28/24 10:00 06/03/24 21:33 1 DROP Piperacillin Sod/ Tazobactam Sod 100 ml @ 25 mls/hr Q8HR IV 05/28/24 22:00 Hold 06/02/24 13:49 25 MLS/HR Insulin Glargine 20 units BID@0700,2200 SC 05/29/24 22:00 06/04/24 07:08 20 UNITS Prednisone 20 mg DAILY PO 05/30/24 10:00 06/04/24 11:07 20 MG Fluconazole 100 ml @ 100 mls/hr DAILY@1800 IV 05/30/24 18:00 06/03/24 18:41 100 MLS/HR Vancomycin HCl 0 ml @ 0 mls/hr UD IV 06/02/24 14:00 Aztreonam 1 gm/ Dextrose 50 ml @ 100 mls/hr Q8HR IV 06/02/24 14:00 06/04/24 06:21 100 MLS/HR laboratory and microbiology Laboratory Tests 06/04/24 06:05 06/02/24 15:00 Test 06/02/24 15:00 Range/Units Serum Glucose 269 H 74-106 mg/dL Problem List SSS S/P PPI PAH HFrEF CHRONIC EF 45% NOW WITH SS COMPLEX OF SOB CXR CONSISTENT WITH INTERSTITIAL LUNG DISEASE COPD EXACERABATION PRODUCTIVE COUGH CONGESTION TROPONIN NEGATIVE BNP WNL Assessment/Plan INHALER STEROIDS ABX START REVATIO 20 MG TID LASIX IV DC SOLUMEDROL DC IV FLUID CORRECT HYPOKALEMIA ANOTHER DOSE OF LASIX CORRECT K ENSURE PHYSICAL THERAPY CHANGE ABX TO ZOSYN SOLUMEDROL start lantus regimen will titrate off steroids check cbc with change in abx regimen STILL ELEVATED WBC ELEVATED BNP RECHECK LABS BLD GLC BETTER DC SOLUMEDROL STILL WITH LEUKOCYTOSIS CXR NEGATIVE UA CHANGE ABX AZTREONAM AND VANCO WITH CHANGE IN ABX LEUKOCYTOSIS HAS IMPROVED PT CT ABD PELVIS RESULTS PENDING WBC BACK TO BASELINE CONT IV ABX X 1 MORE DAY DC HOME IN AM Dietary Evaluation Review Comments: recommendation: 1. smoking cessation 2. Recommend Renal Specific 60g protein restricted 2gNa 3K low phos CCHO-60 g diet if Pt does not need dialysis treatment. Expected Outcomes/Goals: Controlled DM, less uremic symptoms, maintain weight Plan discussed with: Patient, Spouse Critical Care Time(min): 35 WILEY SALINAS MD Jun 04, 2024 13:02
[2024-06-04] MEDS: VANCOMYCIN 750MG KIT 100 ML IV ONE (21:22)
--- NOTE | 2024-06-04 22:23 | DVHPN2 ---
Progress Note - Dictate Date Seen: Jun 04, 2024 Medical Necessity Reason Pt with a Central, PICC or Fol: Yes The following are medically ne: Nova Catheter Reason for nova catheter: Strict I&O Subjective Patient seen and examined at bedside. Remains on supplemental oxygen Overnight events reviewed. vital signs Vital Sign Date Time Temp Pulse Resp B/P (MAP) Pulse Ox O2 Delivery O2 Flow Rate FiO2 06/04/24 21:00 98.0 85 17 113/58 (76) 98 98.0 06/04/24 20:00 Nasal Cannula* 2 N/A Oxymizer Total Intake and Output 06/03/24 06/03/24 06/04/24 15:00 23:00 07:00 Intake Total 600 ml 1600 ml 1200 ml Output Total 1450 ml 950 ml Balance 600 ml 150 ml 250 ml medications Current Medications Medications Dose Ordered Sig/Long Route Start Time Stop Time Status Last Admin Dose Admin Sodium Chloride 10 ml Q8HR IV 05/22/24 14:00 06/04/24 21:22 10 ML Docusate Sodium 100 mg BIDPRN PRN PO 05/22/24 10:30 05/28/24 10:38 100 MG Acetaminophen 650 mg Q6HP PRN PO 05/22/24 10:30 Ondansetron HCl 4 mg Q4HP PRN IV 05/22/24 10:30 Albuterol 2.5 mg Q6H NEB 05/22/24 12:00 06/04/24 18:35 2.5 MG Ipratropium [place] 0.5 mg Q6H NEB 05/22/24 12:00 06/04/24 18:35 0.5 MG Ascorbic Acid 500 mg BID PO 05/22/24 22:00 06/04/24 21:23 500 MG Clopidogrel Bisulfate 75 mg DAILY PO 05/23/24 10:00 06/04/24 11:07 75 MG Atorvastatin Calcium 10 mg HS PO 05/22/24 22:00 06/04/24 21:23 10 MG Patient Own Medication 5 DAILY PO 05/23/24 10:00 06/04/24 11:18 5 Donepezil HCl 10 mg HS PO 05/22/24 22:00 06/04/24 21:22 10 MG Apixaban 2.5 mg BID PO 05/22/24 10:45 06/04/24 21:23 2.5 MG Pantoprazole Sodium 40 mg DAILY IV 05/22/24 11:00 06/04/24 11:07 40 MG Artificial Tears 2 drop Q6HP PRN EACHEYE 05/22/24 16:00 05/26/24 22:20 2 DROP Diagnostic Test (Pha) 1 strip ACHS 05/23/24 17:00 06/04/24 21:24 1 STRIP Insulin Human Regular HS SC 05/23/24 22:00 06/04/24 21:27 3 UNITS Insulin Human Regular AC SC 05/23/24 17:00 06/04/24 18:34 6 UNITS Dextrose 50 ml UD PRN IV 05/23/24 15:00 Enteral Nutritional Formula 240 ml TIDWM PO 05/27/24 18:00 06/04/24 20:08 240 ML Cyclopentolate HCl 1 drop BID EACHEYE 05/28/24 10:00 06/04/24 21:24 1 DROP Piperacillin Sod/ Tazobactam Sod 100 ml @ 25 mls/hr Q8HR IV 05/28/24 22:00 Hold 06/02/24 13:49 25 MLS/HR Insulin Glargine 20 units BID@0700,2200 SC 05/29/24 22:00 06/04/24 21:29 20 UNITS Prednisone 20 mg DAILY PO 05/30/24 10:00 06/04/24 11:07 20 MG Fluconazole 100 ml @ 100 mls/hr DAILY@1800 IV 05/30/24 18:00 06/04/24 20:07 100 MLS/HR Vancomycin HCl 0 ml @ 0 mls/hr UD IV 06/02/24 14:00 Aztreonam 1 gm/ Dextrose 50 ml @ 100 mls/hr Q8HR IV 06/02/24 14:00 06/04/24 21:39 100 MLS/HR objective Gen.: Patient lying in bed in no apparent distress. On supplemental oxygen. Head: Normocephalic, atraumatic. Eyes: EOMI/PERRLA. Ears: Normal hearing. Normal anatomy. Neck/trachea: Trachea midline, supple. Nose: Normal external anatomy. Mouth: Moist mucous membranes. Chest: Decreased air entry bilaterally. Coarse wheezing. No rhonchi. Crackles present. Cardiovascular: Positive S1, positive S2. Regular rate and rhythm. Abdomen: Positive bowel sounds in all 4 quadrants. Soft, non-tender, non- distended. : Deferred. Rectal: Deferred. Skin: Warm, dry. Intact. Extremities: 2+ radial pulses bilaterally. No lower extremity edema. Neuro: Awake, alert, oriented x3. No gross motor or sensory deficits. Cranial nerves II through XII intact. Gait not assessed. laboratory and microbiology Laboratory Tests 06/04/24 06:05 06/02/24 15:00 Test 06/02/24 15:00 Range/Units Serum Glucose 269 H 74-106 mg/dL Assessment/Plan Impression: Acute on chronic COPD exacerbation Dyspnea Acute on chronic hypoxic respiratory failure Dependence on supplemental oxygen Congestive heart failure Nicotine dependence Hypokalemia Events: Remains on supplemental oxygen, 2 LPM NC Taper O2 as tolerated Continue bronchodilators Continue antibiotics/antifungal Steroids - prednisone PO d/t hyperglycemia Incentive spirometry WBC trending down, 12.1 K On Eliquis Accu-Cheks, ISS. Glucerna for nutritional supplementation Diurese PRN Monitor renal function Physical therapy Protonix for GI prophylaxis Disposition per hospitalist. CXR on 05/27/24 demonstrates Slight interval improvement in the extensive interstitial and alveolar type opacities of the right lung with unchanged mild interstitial opacities of the left lung. No effusion or pneumothorax. Labs and imaging reviewed. Rest of plan as noted below. Plan: Supplemental oxygen Titrate to keep O2 sats above 92%. Continue bronchodilators. Continue steroids Incentive spirometry Monitor renal function. Monitor electrolytes. Supplement as necessary. Monitor ins and outs. DVT prophylaxis. Prognosis: Poor given patient's multiple co-morbidities. Rest of plan per hospitalist and other consultants. Thank you, Dr. Talamantes for allowing me to participate in this patient's care. Further recommendations will depend on the patient's clinical course. Please do not hesitate to contact me if you have any questions or concerns. This medical document was created using an electronic medical record system with [employer] dictation system. Although these documentations are being carefully reviewed, there may still be some phonetic and typographical changes. The errors are purely typographical, due to imperfection on the software program, and do not reflect any compromise in the patient's medical care. Dietary Evaluation Review Comments: recommendation: 1. smoking cessation 2. Recommend Renal Specific 60g protein restricted 2gNa 3K low phos CCHO-60 g diet if Pt does not need dialysis treatment. Expected Outcomes/Goals: Controlled DM, less uremic symptoms, maintain weight Plan discussed with: Patient, Other (BENSON Saunders) SNEHA KUMARI MD Jun 04, 2024 22:23
[2024-06-05] VITALS (10 sets, daily range): BP systolic 105–118; BP diastolic 48–64; PULSE 72–87; RESP 15–18; TEMP 36.3; O2SAT 93–100
[2024-06-05 05:49] LABS: Chloride 104 mmol/L (98-107); Potassium 4.4 mmol/L (3.5-5.1); Sodium 138 mmol/L (136-145)
[2024-06-05 05:50] LABS: Anion Gap 4 (5-15); Calcium 8.9 mg/dL (8.7-10.4); Carbon Dioxide 30 mmol/L (20-31)
[2024-06-05 05:55] LABS: BUN/Creatinine Ratio 30.7 (10.0-20.0)
[2024-06-05 06:15] LABS: Blood Urea Nitrogen 39 mg/dL (9-23); Glucose 147 mg/dL (74-106)
[2024-06-05 10:00] LABS: Basophils # (auto) 0 10 ^3/uL (0-0.2); Basophils % (auto) 0.1 % (0.0-2.0); Eosinophils # (auto) 0.1 10 ^3/uL (0-0.8); Eosinophils % (auto) 0.6 % (0.0-7.0); Hematocrit 31.2 % (36.0-46.0); Lymphocytes # (auto) 0.8 10 ^3/uL (0.4-5.4); Lymphocytes % (auto) 6.7 % (10.0-50.0); Mean Corpuscular Hemoglobin 27.7 pg (28.0-32.0); Mean Corpuscular Volume 86.4 fL (80.0-100.0); Monocytes # (auto) 0.9 10 ^3/uL (0-1.3); Monocytes % (auto) 7.7 % (0.0-12.0); Neutrophils # (auto) 9.5 10 ^3/uL (1.6-8.6); Neutrophils % (auto) 84.9 % (37.0-80.0); Platelet Count (auto) 417 10^3/uL (140-450); Red Blood Cells 3.61 10^6/uL (4.0-5.20); Red Cell Distribution Width 18.3 % (11.8-14.3); White Blood Cell 11.2 10^3/uL (4.4-10.8)
[2024-06-05] MEDS ORDERED: PATIENTS OWN MEDICATION (EPOGEN 10,000 UNITS) SUBCUT ONE (10:00)
--- NOTE | 2024-06-05 10:02 | DVHDS2 ---
Discharge Summary Date of Admission May 22, 2024 at 10:19 Date of Discharge: Jun 05, 2024 Admitting Diagnosis RESP FAILURE GENERALIZED WEAKNESS Labs/Diagnostic Data: Laboratory Results Test 06/05/24 06:16 06/05/24 05:12 06/04/24 06:05 06/02/24 15:00 POC Glucose 121 mg/dl (70-106) Sodium Level 138 mmol/L (136-145) Potassium Level 4.4 mmol/L (3.5-5.1) Chloride Level 104 mmol/L (98-107) Carbon Dioxide Level 30 mmol/L (20-31) Anion Gap 4 (5-15) Blood Urea Nitrogen 39 mg/dL (9-23) Creatinine 1.27 mg/dL (0.550-1.02) Glomerular Filtration Rate Calc 42 mL/min (>90) BUN/Creatinine Ratio 30.7 (10.0-20.0) Serum Glucose 147 mg/dL (74-106) Calcium Level 8.9 mg/dL (8.7-10.4) White Blood Count 12.1 10^3/uL (4.4-10.8) Red Blood Count 3.49 10^6/uL (4.0-5.20) Hemoglobin 9.8 g/dL (12.2-16.2) Hematocrit 29.6 % (36.0-46.0) Mean Corpuscular Volume 84.9 fL (80.0-100.0) Mean Corpuscular Hemoglobin 28.2 pg (28.0-32.0) Mean Corpuscular Hemoglobin Concent 33.2 g/dL (32.0-36.0) Red Cell Distribution Width 17.9 % (11.8-14.3) Platelet Count 404 10^3/uL (140-450) Mean Platelet Volume 6.7 fL (6.9-10.8) Neutrophils (%) (Auto) 84.8 % (37.0-80.0) Lymphocytes (%) (Auto) 6.7 % (10.0-50.0) Monocytes (%) (Auto) 7.8 % (0.0-12.0) Eosinophils (%) (Auto) 0.6 % (0.0-7.0) Basophils (%) (Auto) 0.1 % (0.0-2.0) Neutrophils # (Auto) 10.3 10 ^3/uL (1.6-8.6) Lymphocytes # (Auto) 0.8 10 ^3/uL (0.4-5.4) Monocytes # (Auto) 0.9 10 ^3/uL (0-1.3) Eosinophils # (Auto) 0.1 10 ^3/uL (0-0.8) Basophils # (Auto) 0 10 ^3/uL (0-0.2) Nucleated Red Blood Cells 0.0 % Random Vancomycin Level 13.2 ug/mL (5-10) Total Bilirubin 0.4 mg/dL (0.2-1.0) Aspartate Amino Transferase (AST) 24 U/L (13-40) Alanine Aminotransferase (ALT) 55 U/L (7-40) Alkaline Phosphatase 135 U/L (46-116) Total Protein 5.4 g/dL (5.7-8.2) Albumin 3.1 g/dL (3.2-4.8) Test 06/02/24 14:30 05/31/24 09:00 05/30/24 15:43 05/29/24 13:17 Urine Color Light-yellow (Yellow) Urine Clarity Clear (Clear) Urine pH 5.5 (5.0-9.0) Urine Specific [place] 1.019 (1.001-1.035) Urine Protein Negative (Negative) Urine Ketones Negative (Negative) Urine Blood Negative /uL (Negative) Urine Nitrite Negative (Negative) Urine Bilirubin Negative (Negative) Urine Urobilinogen Normal mg/dL (Negative) Urine Leukocyte Esterase Trace /uL (Negative) Urine RBC <1 /hpf (0 - 4) Urine WBC 5 /hpf (0 - 5) Urine Squamous Epithelial Cells Few /hpf (<5) Urine Bacteria Few /hpf (None Seen) Urine Yeast (Budding) Many /hpf (None Seen) Urine Glucose 4+ mg/dL (Normal) Urine Mucus Few (None Seen) Differential Total Cells Counted 100.0 (100) Neutrophils % (Manual) 90 (37.0-80.0) Band Neutrophils % (Manual) 4 Lymphocytes % (Manual) 5 (10.0-50.0) Monocytes % (Manual) 1 (0-12) Eosinophils % (Manual) 0 (0-7) Basophils % (Manual) 0 (0.0-2.0) Metamyelocytes % (manual) 0 Myelocytes % (Manual) 0 Promyelocytes % (Manual) 0 Blast Cells % (Manual) 0 Reactive Lymphocytes 0 Platelet Estimate Adequate B-Type Natriuretic Peptide 1500.11 pg/mL (0-100) Test 05/26/24 09:50 05/26/24 09:35 05/23/24 06:38 05/22/24 16:49 Blood Gas Specimen Type Arterial Blood Gas Sample Site Left radial Blood Gas Patient Temperature 37.0 Arterial Blood Date Drawn Arterial Blood pH 7.369 (7.350-7.450) Arterial Blood Partial Pressure CO2 30.4 mmHg (32.0-45.0) Arterial Blood Partial Pressure O2 98.9 mmHg (83.0-108.0) Arterial Blood HCO3 17.1 mmol/L (21.0-28.0) Arterial Blood Oxygen Saturation 97.4 % (94.0-98.0) Arterial Blood Base Excess -7.0 mmol/L (-2.0-3.0) Arterial Blood Oxyhemoglobin 96.2 % (94.0-98.0) Arterial Blood Carboxyhemoglobin 0.9 % (0.5-1.5) Arterial Blood Methemoglobin 0.3 % (0.0-1.5) Adryan Test Yes Blood Gas Total Hemoglobin 12.20 g/dL (12.0-16.0) Blood Gas Modality Mask - bipap FiO2 % 60.0 Blood Gas Pressure Support 7 Blood Gas EPAP 5 Blood Gas IPAP 12 Magnesium Level 1.7 mg/dL (1.6-2.6) Serum Osmolality 296 mOsm/kg (278-298) Urine Osmolality 533 mOsm/kg Urine Creatinine 110.98 mg/dL (30.0-125.0) Urine Sodium < 10 mmol/L (40-220) Test 05/22/24 10:01 05/22/24 08:15 Troponin I High Sensitivity 9 ng/L (</=34) Influenza Type A Antigen Negative (Negative) Influenza Type B Antigen Negative (Negative) SARS-CoV-2 Antigen (Rapid) Negative (NEGATIVE) Other Laboratory Tests 06/05/24 05:12 06/04/24 06:05 Brief Hx & Hospital Course: SSS S/P PPI PAH HFrEF CHRONIC EF 45% NOW WITH SS COMPLEX OF SOB CXR CONSISTENT WITH INTERSTITIAL LUNG DISEASE COPD EXACERBATION PRODUCTIVE COUGH CONGESTION TROPONIN NEGATIVE BNP WNL Assessment/Plan INHALER STEROIDS ABX START REVATIO 20 MG TID LASIX IV DC SOLUMEDROL DC IV FLUID CORRECT HYPOKALEMIA ANOTHER DOSE OF LASIX CORRECT K ENSURE PHYSICAL THERAPY CHANGE ABX TO ZOSYN SOLUMEDROL start lantus regimen will titrate off steroids check cbc with change in abx regimen STILL ELEVATED WBC ELEVATED BNP RECHECK LABS BLD GLC BETTER DC SOLUMEDROL STILL WITH LEUKOCYTOSIS CXR NEGATIVE UA CHANGE ABX AZTREONAM AND VANCO WITH CHANGE IN ABX LEUKOCYTOSIS HAS IMPROVED PT CT ABD PELVIS RESULTS PENDING WBC BACK TO BASELINE CONT IV ABX X 1 MORE DAY MAY DC HOME CT OF ABD AND PELVIS HETEROGENOUS UPTAKE IN LIVER R/O HEMOCHROMATOSIS Consults/Reason for consult PUL CONSULT Condition at Discharge: Guarded Final Diagnosis/Problems List PNEUMONIA HEMACHROMATOSIS ANEMIA Discharge Disposition: Home Discharge Instruct/Medications Diet: Cardiac 2g Na,low cholest Activity: Light activity Follow Up/Referral: 1 WEEK Medications: CONT HOME MEDS Discharge Statement: "Patient was advised to return to the ER or call 911 if any headaches, dizziness, shortness of breath, chest pain, abdominal pain, bleeding, fevers, or worsening of medical condition. Patient was counseled about treatment plan, medications, possible side effects, patientverbalized understanding. All questions were answered to the best of my ability. This discharge took greater then 30 minutes in planning, reviewing documentation, counseling the patient, and discussing with other team members." ASSESSMENT ASSESSMENT Assessment PNEUMONIA HEMACHROMATOSIS ANEMIA WILEY SALINAS MD Jun 05, 2024 10:02
[2024-06-05 10:46] LABS: % Iron Saturation 12.8 % (15-50)
[2024-06-05] MEDS ORDERED: IRON SUCROSE COMPLEX 110 ML IV SCH (12:00)
[2024-06-05] MEDS: EPOETIN ALFA-EPBX 10,000 UNIT/1ML VIAL SC ONE (12:40)
--- NOTE | 2024-06-05 22:12 | DVHPN2 ---
Progress Note - Dictate Date Seen: Jun 05, 2024 Medical Necessity Reason Pt with a Central, PICC or Fol: Yes The following are medically ne: Nova Catheter Reason for nova catheter: Strict I&O Subjective Patient seen and examined at bedside. Remains on supplemental oxygen Overnight events reviewed. vital signs Vital Sign Date Time Temp Pulse Resp B/P (MAP) Pulse Ox O2 Delivery O2 Flow Rate FiO2 06/05/24 12:51 98.1 78 18 112/48 (69) 94 98.1 06/05/24 12:21 Nasal Cannula 2.0 06/05/24 12:21 28 Total Intake and Output 06/04/24 06/04/24 06/05/24 15:00 23:00 07:00 Intake Total 1700 ml 400 ml Output Total 1000 ml 3100 ml Balance 700 ml -2700 ml objective Gen.: Patient lying in bed in no apparent distress. On supplemental oxygen. Head: Normocephalic, atraumatic. Eyes: EOMI/PERRLA. Ears: Normal hearing. Normal anatomy. Neck/trachea: Trachea midline, supple. Nose: Normal external anatomy. Mouth: Moist mucous membranes. Chest: Decreased air entry bilaterally. Coarse wheezing. No rhonchi. Crackles present. Cardiovascular: Positive S1, positive S2. Regular rate and rhythm. Abdomen: Positive bowel sounds in all 4 quadrants. Soft, non-tender, non- distended. : Deferred. Rectal: Deferred. Skin: Warm, dry. Intact. Extremities: 2+ radial pulses bilaterally. No lower extremity edema. Neuro: Awake, alert, oriented x3. No gross motor or sensory deficits. Cranial nerves II through XII intact. Gait not assessed. laboratory and microbiology Laboratory Tests 06/05/24 09:49 06/05/24 05:12 Test 06/05/24 05:12 Range/Units Serum Glucose 147 H 74-106 mg/dL Assessment/Plan Impression: Acute on chronic COPD exacerbation Dyspnea Acute on chronic hypoxic respiratory failure Dependence on supplemental oxygen Congestive heart failure Nicotine dependence Hypokalemia Events: Remains on supplemental oxygen, 2 LPM NC Taper O2 as tolerated Patient is feeling better. Continue bronchodilators Continue antibiotics Steroids - prednisone PO d/t hyperglycemia Incentive spirometry On Eliquis Accu-Cheks, ISS. Glucerna for nutritional supplementation Diurese PRN Monitor renal function Physical therapy Protonix for GI prophylaxis Patient is stable for discharge from the pulmonary standpoint. Disposition per hospitalist. CXR on 05/27/24 demonstrates Slight interval improvement in the extensive interstitial and alveolar type opacities of the right lung with unchanged mild interstitial opacities of the left lung. No effusion or pneumothorax. Labs and imaging reviewed. Rest of plan as noted below. Plan: Supplemental oxygen Titrate to keep O2 sats above 92%. Continue bronchodilators. Continue steroids Incentive spirometry Monitor WBC Monitor renal function. Monitor electrolytes. Supplement as necessary. Monitor ins and outs. DVT prophylaxis. Prognosis: Poor given patient's multiple co-morbidities. Rest of plan per hospitalist and other consultants. Thank you, Dr. Talamantes for allowing me to participate in this patient's care. Further recommendations will depend on the patient's clinical course. Please do not hesitate to contact me if you have any questions or concerns. This medical document was created using an electronic medical record system with ki work dictation system. Although these documentations are being carefully reviewed, there may still be some phonetic and typographical changes. The errors are purely typographical, due to imperfection on the software program, and do not reflect any compromise in the patient's medical care. Dietary Evaluation Review Comments: recommendation: 1. smoking cessation 2. Recommend Renal Specific 60g protein restricted 2gNa 3K low phos CCHO-60 g diet if Pt does not need dialysis treatment. Expected Outcomes/Goals: Controlled DM, less uremic symptoms, maintain weight Plan discussed with: Patient, Other (BENSON White) SNEHA KUMARI MD Jun 05, 2024 22:12
== END 2024-06-05 14:30 | disposition home or self-care (01) | DRG 189 ==
LOC: ER 06:31 → EDBD 06:31 → OVERFLOW 10:19 → WEST WING 13:56 → TELE-WESTW 05-26 09:38 → TELE-EAST 05-30 06:40
PROVIDERS: ADMIT Internal Medicine Cardiovascular Disease; ATTEND Internal Medicine Cardiovascular Disease
PROC: 5A09357 Assistance with Respiratory Ventilation, Less than 24 Consecutive Hours, Continuous Positive Airway Pressure (ICD-10-PCS; principal; 2024-05-26)
DX: J96.21 Acute and chronic respiratory failure with hypoxia (principal); J18.9 Pneumonia, unspecified organism; J44.1 Chronic obstructive pulmonary disease with (acute) exacerbation; I13.0 Hypertensive heart and chronic kidney disease with heart failure and stage 1 through stage 4 chronic kidney disease, or unspecified chronic kidney disease; N17.9 Acute kidney failure, unspecified; I50.22 Chronic systolic (congestive) heart failure; J44.0 Chronic obstructive pulmonary disease with (acute) lower respiratory infection; Z20.822 Contact with and (suspected) exposure to COVID-19; E87.6 Hypokalemia; D64.9 Anemia, unspecified; E11.22 Type 2 diabetes mellitus with diabetic chronic kidney disease; I48.91 Unspecified atrial fibrillation; N18.32 Chronic kidney disease, stage 3b; I49.5 Sick sinus syndrome; F17.210 Nicotine dependence, cigarettes, uncomplicated; I95.9 Hypotension, unspecified; E11.65 Type 2 diabetes mellitus with hyperglycemia; I25.10 Atherosclerotic heart disease of native coronary artery without angina pectoris; Z83.3 Family history of diabetes mellitus; Z82.49 Family history of ischemic heart disease and other diseases of the circulatory system; Z99.81 Dependence on supplemental oxygen
CPT/HCPCS: 36415; 36600; 71045; 74178; 76775; 80048; 80053; 80202; 81001; 82565; 82570; 82805; 82962; 83540; 83550; 83735; 83880; 83930; 83935; 84132; 84300; 84484; 85007; 85025; 85027; 85045; 87426; 87804; 93005; 94640; 94660; 96374; 97110; 97116; 97163; 97530; G0378; J1450; J1815; J2470; J2543; J7060

== ENCOUNTER → 2024-11-19 | Outpatient (CLI) | payer MEDICARE, OTHER ==
--- NOTE | 2024-11-24 13:45 | DVHSR ---
APPROVED REPORT EXAM: LIMITED Two-dimensional and M-mode echocardiogram with Doppler and color Doppler. Surgery/Intervention Pacemaker: DIMENSIONS LVDd4.3 (3.8-5.7cm)LA (2D)4.6 (1.9-4.0cm)Aortic Root3.0 (2.0-3.7cm) LVDs3.1 (2.5-4.0cm)LA (MM) (1.9-4.0cm)Aortic Cusp Exc1.3 (1.5-2.0cm) EF (%) 55.0 (55-70%)Rt. Atrium4.2 (1.9-4.0cm)Asc. Aorta cm IVSd1.0 (0.7-1.1cm)RV (D) (1.8-2.4cm) PWd0.9 (0.7-1.1cm) Mitral Valve MitralMitral Stenosis E/A ratio0.02D MVAcm2 Aortic Valve Aortic ValveAortic Stenosis LVOT Diameter1.8 (1.8-2.4cm)Doppler AVAcm2 2D AVA1.36cm2 Tricuspid Valve TR Velocity2.60m/s [id number] LEFT VENTRICLE The left ventricle is normal size. The left ventricle is normal in structure and function. The Ejection Fraction is within normal limits. RIGHT VENTRICLE The right ventricle is normal size. There is a pacemaker lead in the right ventricle. ATRIA The left atrium is enlarged. The right atrium is enlarged. A pacemaker is seen in the right atrium. The interatrial septum is intact with no evidence for an atrial septal defect. MITRAL VALVE The mitral valve is normal in structure and function. Mitral annular calcification is mild. Mitral regurgitation is trace to mild. PULMONIC VALVE The pulmonic valve is not well visualized. TRICUSPID VALVE The tricuspid valve is grossly normal. There is mild tricuspid regurgitation. Right ventricular systolic pressure is 30-40 mmHg. AORTIC VALVE The aortic valve opens well. The aortic valve is mildly sclerotic. No aortic regurgitation is present. GREAT VESSELS The aortic root is normal size. PERICARDIAL EFFUSION There is no pericardial effusion. Other Information Quality : Technically LimitedRhythm : Technically limited study due to body habitus. Conclusion EF >55% LAE DAVID MILD TR MILD MR MILD MAC
== END | disposition home or self-care (01) ==
LOC: Rad HDHVI 13:04
PROVIDERS: ATTEND Internal Medicine Cardiovascular Disease
DX: I08.3 Combined rheumatic disorders of mitral, aortic and tricuspid valves (principal); R06.02 Shortness of breath
CPT/HCPCS: 93306

== ENCOUNTER 2024-12-01 13:59 | Outpatient (CLI) | payer MEDICARE, OTHER ==
[~2024-12-01] VITALS: Ht 157.5 cm; Wt 45.4 kg
[2024-12-01] MEDS ORDERED: ADENOSINE 38 MG in GIVE UN-DILUTED 0 ML IV ONE (14:30)
[2024-12-01] MEDS ORDERED: ADENOSINE 90 MG/30 ML INJ IV ONE (14:39)
== END 2024-12-01 17:00 | disposition home or self-care (01) ==
LOC: Rad HDHVI 13:59
PROVIDERS: ATTEND Internal Medicine Cardiovascular Disease
DX: I49.3 Ventricular premature depolarization (principal); R06.00 Dyspnea, unspecified; I11.0 Hypertensive heart disease with heart failure; I50.33 Acute on chronic diastolic (congestive) heart failure; E11.21 Type 2 diabetes mellitus with diabetic nephropathy; J44.9 Chronic obstructive pulmonary disease, unspecified; E78.00 Pure hypercholesterolemia, unspecified; I49.5 Sick sinus syndrome; I48.0 Paroxysmal atrial fibrillation; R06.02 Shortness of breath; Z95.0 Presence of cardiac pacemaker; Z82.49 Family history of ischemic heart disease and other diseases of the circulatory system
CPT/HCPCS: 78452; 93017; A9500; J0153

== ENCOUNTER 2025-03-11 19:50 | Inpatient (IN) | payer MEDICARE, OTHER ==
[~2025-03-11] VITALS: Ht 157.5 cm; Wt 47.1 kg
[2025-03-11 20:00] VITALS: RESP 30
--- NOTE | 2025-03-11 20:00 | ED.PDOC ---
SOB-HPI HPI Comments 54-year-old female who presents to the ED via EMS with a chief complaint of shortness of breath onset today (03/11/25) about 1 hour prior to ED arrival. Per EMS, patient's daughter called 911 due to patient experiencing shortness of breath. Upon EMS arrival, they noticed audible rales, O2 sat was 33% on RA. Patient was alert and oriented, placed on a CPAP, O2 improved to 93%, patient was hypertensive with a BP of 176 systolic. In route to ED patient stated he had slight relief, EMS noted patient became more lethargic. PMHx a-fib, cCHF, COPD, DM, HLD, HTN. Denies chest pain, dizziness, fever, chills, nausea, vomiting, diarrhea, abdominal pain, headache. No other symptoms or modifying factors present at this time. Time Seen by MD: 19:55 Primary Care Provider: Unknown Reviewed notes: Medications, Allergies Information Source: Patient, Emergency Med Personnel Mode of Arrival: EMS Severity: Moderate Timing: Hours Duration: Since onset Context: At Rest History of: COPD, CHF Prehospital treatment: C-Pap Modifying Factors: Nothing Associated Signs and Symptoms: None Vital Signs Vital Signs Date Time Temp Pulse Resp B/P (MAP) Pulse Ox O2 Delivery O2 Flow Rate FiO2 03/11/25 23:15 79 21 70/39 (49) 100 03/11/25 22:19 80 03/11/25 20:09 Facial BiPAP Mask 03/11/25 20:03 96.6 96.6 Physical Exam PHYSICAL EXAM: General: Awake, alert and oriented. No acute distress. Skin: Skin in warm, dry and intact. Appropriate color for ethnicity. HEENT: The head is normocephalic and atraumatic. Conjunctivae are clear without exudates or hemorrhage. Sclera is non-icteric. EOM are intact. No signs of nystagmus. Eyelids are normal in appearance without swelling or lesions. Oral mucosa is pink and moist Neck: The neck is supple with normal range of motion. No JVD. Cardiac: Heart rate and rhythm are normal. No murmurs, gallops, or rubs are auscultated. Respiratory: No signs of respiratory distress. Lung sounds are clear in all lobes bilaterally without rales, rhonchi, or wheezes. Abdominal: Abdomen is soft, non-tender without distention, guarding or rigidity. Bowel sounds are present and normoactive in all four quadrants. Extremities: Upper and lower extremities are atraumatic in appearance without deformity or edema. Neurological: The patient is awake, alert and oriented to person, place, and time with normal speech. Speech is clear. There is no facial asymmetry. Psychiatric: Appropriate mood and affect. Good judgement and insight. 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 Was a procedure done?: Yes Sedation Sedation?: Yes Informed consent obtained: Yes Sedation start time: 20:50 Sedation end time: 21:00 Sedation total time: curently under sedation Intubation Indication: Respiratory Insufficiency Prep: Preoxygenation Pretreated with: Sedation (20 mg etomidate, 100 mg succinylcholine) Medicated with: Other (versed, fentanyl) Intubation Approach: Orotracheal (7.5 ett) Intubation size: cm (24 at lip) Informed consent obtained: Yes Risks/benefits/alt described: Yes Differential Dx Differential Diagnosis: Other (Differential diagnoses considered includebut arenot limited to acute Bronchitis, Asthma, COPD, Pneumothorax, PE, CHF, Pulmonary HTN, Anemia, CO Poisoning, Methemoglobinemia, Hyperventilation, Metabolic Acidosis, Pulmonary Edema, Pneumonia, ACS, Pericardial Tamponade, Anxiety, other) X-Ray, Labs, Meds, VS Vital Signs Date Time Temp Pulse Resp B/P (MAP) Pulse Ox O2 Delivery O2 Flow Rate FiO2 03/11/25 23:15 79 21 70/39 (49) 100 03/11/25 23:00 97 24 75/45 (55) 100 03/11/25 23:00 91/60 03/11/25 22:45 83 21 88/57 (67) 100 03/11/25 22:30 113/69 03/11/25 22:30 89 20 113/68 (83) 100 03/11/25 22:19 94 20 122/28 (59) 100 80 03/11/25 22:15 95 23 129/80 (96) 100 03/11/25 22:15 135/81 03/11/25 22:00 95 21 124/75 (91) 100 03/11/25 22:00 124/75 03/11/25 21:45 103 18 119/77 (91) 100 03/11/25 21:30 91 20 104/66 (79) 100 03/11/25 21:30 104/66 03/11/25 21:15 98 20 122/78 (93) 100 03/11/25 21:13 100 03/11/25 21:00 98 20 155/93 (113) 100 100 03/11/25 21:00 145/95 03/11/25 21:00 98 26 145/95 (112) 98 03/11/25 20:40 101 28 157/84 (108) 96 03/11/25 20:30 105 28 156/84 (108) 98 03/11/25 20:20 159/85 03/11/25 20:15 99 27 162/89 (113) 99 03/11/25 20:09 104 Facial BiPAP Mask 60 03/11/25 20:03 160/83 03/11/25 20:03 96.6 114 21 168/96 93 96.6 03/11/25 20:00 30 Bi-Pap+ 60 60 03/11/25 20:00 98 28 160/83 (108) 97 03/11/25 19:56 97 03/11/25 19:54 96 24 158/87 (110) 97 Lab Test 03/11/25 23:00 03/11/25 22:12 03/11/25 21:10 03/11/25 20:06 Range/Units Troponin I High Sensitivity 14 8 8 </=34 ng/L Blood Gas Specimen Type Arterial Blood Gas Sample Site Right radial Blood Gas Patient Temperature 37.0 Arterial Blood Date Drawn Arterial Blood pH 7.278 L 7.350-7.450 Arterial Blood Partial Pressure CO2 45.9 H 32.0-45.0 mmHg Arterial Blood Partial Pressure O2 310.1 *H 83.0-108.0 mmHg Arterial Blood HCO3 21.0 21.0-28.0 mmol/L Arterial Blood Oxygen Saturation 99.7 H 94.0-98.0 % Arterial Blood Base Excess -5.7 L -2.0-3.0 mmol/L Arterial Blood Oxyhemoglobin 98.5 H 94.0-98.0 % Arterial Blood Carboxyhemoglobin 0.6 0.5-1.5 % Arterial Blood Methemoglobin 0.6 0.0-1.5 % Adryan Test Modified Blood Gas Total Hemoglobin 12.80 12.0-16.0 g/dL Blood Gas Set Respiration Rate 20.0 Blood Gas Modality Vent - ac FiO2 % 100.0 Blood Gas Tidal Volume 400.0 Blood Gas PEEP or CPAP 5.0 Blood Gas Critical Value Read Back Yes Blood Gas Notified Whom iveth Fernandez md Blood Gas Notified Time [id number] Blood Gas Notified By darrian Connors rrt White Blood Count 12.9 H 4.4-10.8 10^3/uL Red Blood Count 4.26 4.0-5.20 10^6/uL Hemoglobin 11.7 L 12.2-16.2 g/dL Hematocrit 36.6 36.0-46.0 % Mean Corpuscular Volume 85.8 80.0-100.0 fL Mean Corpuscular Hemoglobin 27.4 L 28.0-32.0 pg Mean Corpuscular Hemoglobin Concent 32.0 32.0-36.0 g/dL Red Cell Distribution Width 17.9 H 11.8-14.3 % Platelet Count 410 140-450 10^3/uL Mean Platelet Volume 7.4 6.9-10.8 fL Neutrophils (%) (Auto) 76.0 37.0-80.0 % Lymphocytes (%) (Auto) 13.8 10.0-50.0 % Monocytes (%) (Auto) 6.5 0.0-12.0 % Eosinophils (%) (Auto) 2.9 0.0-7.0 % Basophils (%) (Auto) 0.8 0.0-2.0 % Neutrophils # (Auto) 9.8 H 1.6-8.6 10 ^3/uL Lymphocytes # (Auto) 1.8 0.4-5.4 10 ^3/uL Monocytes # (Auto) 0.8 0-1.3 10 ^3/uL Eosinophils # (Auto) 0.4 0-0.8 10 ^3/uL Basophils # (Auto) 0.1 0-0.2 10 ^3/uL Nucleated Red Blood Cells 0.1 % Sodium Level 131 L 136-145 mmol/L Potassium Level 5.1 3.5-5.1 mmol/L Chloride Level 99 98-107 mmol/L Carbon Dioxide Level 25 20-31 mmol/L Anion Gap 7 5-15 Blood Urea Nitrogen 18 9-23 mg/dL Creatinine 1.32 H 0.550-1.02 mg/dL Glomerular Filtration Rate Calc 40 >90 mL/min BUN/Creatinine Ratio 13.6 10.0-20.0 Serum Glucose 200 H 74-106 mg/dL Calcium Level 9.0 8.7-10.4 mg/dL B-Type Natriuretic Peptide 1076.29 0-100 pg/mL Test 03/11/25 19:59 Range/Units Blood Gas Specimen Type Arterial Blood Gas Sample Site Left radial Blood Gas Patient Temperature 37.0 Arterial Blood Date Drawn [id number] Arterial Blood pH 7.146 *L 7.350-7.450 Arterial Blood Partial Pressure CO2 66.1 *H 32.0-45.0 mmHg Arterial Blood Partial Pressure O2 126.8 H 83.0-108.0 mmHg Arterial Blood HCO3 22.3 21.0-28.0 mmol/L Arterial Blood Oxygen Saturation 97.7 94.0-98.0 % Arterial Blood Base Excess -7.5 L -2.0-3.0 mmol/L Arterial Blood Oxyhemoglobin 96.3 94.0-98.0 % Arterial Blood Carboxyhemoglobin 0.8 0.5-1.5 % Arterial Blood Methemoglobin 0.6 0.0-1.5 % Adryan Test Modified Blood Gas Total Hemoglobin 13.00 12.0-16.0 g/dL Blood Gas Modality Mask - bipap FiO2 % 60.0 Blood Gas Critical Value Read Back Yes Blood Gas Notified Whom iveth Fernandez md Blood Gas Notified Time [id number] Blood Gas Notified By darrian Connors rrt Microbiology Date/Time Source Procedure Growth Status 03/11/25 21:40 Sputum Gram Stain - Final Resulted 03/11/25 21:40 Sputum Respiratory Culture - Preliminary Resulted [facility] [id number] [facility] [address] Ph: [phone] DIAGNOSTIC IMAGING Diagnostic Imaging Report : [id number] Signed PATIENT: FLORENTINO PATRICK ACCT: [id number] UNIT: [id number] : 1940 LOC: ER ROOM / BED: / AGE / SEX: 84 / F ADM STATUS: REG ER SERVICE 54 ORDERING PHYSICIAN: ALEJO FERNANDEZ MD PROCEDURE(s): CXR1 - CHEST XRAY 1 VIEW REASON: cp ORDER NUMBER(s): [id number], ACCESSION NUMBER(s): [id number] CHEST RADIOGRAPH Indication: cp Technique: Single frontal view of the chest was obtained COMPARISON: XY CHEST PORTABLE on DOS: 05/30/24, XY CHEST PORTABLE on DOS: 05/27/24, XY CHEST XRAY 1 VIEW on DOS: 05/26/24, XY CHEST PORTABLE on DOS: 05/22/24, XY CHEST TWO VIEWS ROUTINE on DOS: 09/19/23 FINDINGS: Lines and Tubes: Pacemaker/ AICD in the left upper chest with multiple cardiac leads. Lungs: Multifocal pneumonia throughout both lungs. Pleura: No effusion. No pneumothorax. Cardiomediastinal contours: Unremarkable Bones: Unremarkable IMPRESSION: 1. Multifocal pneumonia throughout both lungs. ATED BY: GIANLUCA STARK MD DICTATED DATE/TIME: 03/11/252100 SIGNED BY: GIANLUCA STARK MD SIGNED DATE/TIME: 03/11/252100 CC: Time of 1ST Reevaluation: 20:25 Reevaluation 1ST: Unchanged Patient Education/Counseling: Need For Follow Up Family Education/Counseling: No Family Present SEPSIS Sepsis Screen Physician Orders Chest Xray 1 View (03/11/25 19:55) Saline Lock (03/11/25 19:55) Inspector Finishing (03/11/25 ) Electrocardigram (03/11/25 22:55) BIPAP (03/11/25 20:01) Abg W/ Co-Ox (03/11/25 20:05) Abg W/ Co-Ox (03/11/25 22:30) Respiratory Culture W/ Gs (03/11/25 21:23) Ventilator Orders (03/11/25 21:23) Chest Xray 1 View (03/11/25 21:39) Abg W/ Co-Ox (03/11/25 22:06) Fentanyl Drip 2500mcg/250mlns (03/11/25 22:15) Vital Signs Date Time Temp Pulse Resp B/P (MAP) Pulse Ox O2 Delivery O2 Flow Rate FiO2 03/11/25 23:15 79 21 70/39 (49) 100 03/11/25 23:00 97 24 75/45 (55) 100 03/11/25 23:00 91/60 03/11/25 22:45 83 21 88/57 (67) 100 03/11/25 22:30 113/69 03/11/25 22:30 89 20 113/68 (83) 100 03/11/25 22:19 94 20 122/28 (59) 100 80 03/11/25 22:15 95 23 129/80 (96) 100 03/11/25 22:15 135/81 03/11/25 22:00 95 21 124/75 (91) 100 03/11/25 22:00 124/75 03/11/25 21:45 103 18 119/77 (91) 100 03/11/25 21:30 91 20 104/66 (79) 100 03/11/25 21:30 104/66 03/11/25 21:15 98 20 122/78 (93) 100 03/11/25 21:13 100 03/11/25 21:00 98 20 155/93 (113) 100 100 03/11/25 21:00 145/95 03/11/25 21:00 98 26 145/95 (112) 98 03/11/25 20:40 101 28 157/84 (108) 96 03/11/25 20:30 105 28 156/84 (108) 98 03/11/25 20:20 159/85 03/11/25 20:15 99 27 162/89 (113) 99 03/11/25 20:09 104 Facial BiPAP Mask 60 03/11/25 20:03 160/83 03/11/25 20:03 96.6 114 21 168/96 93 96.6 03/11/25 20:00 30 Bi-Pap+ 60 60 03/11/25 20:00 98 28 160/83 (108) 97 03/11/25 19:56 97 03/11/25 19:54 96 24 158/87 (110) 97 Laboratory Tests Test 03/11/25 20:06 White Blood Count 12.9 10^3/uL (4.4-10.8) H Departure 1 Departure Time of Disposition: 22:07 Impression: Primary Impression: Acute on chronic systolic heart failure Additional Impression: Acute respiratory failure with hypoxia Disposition: ADMITTED INPATIENT Condition: Critical Comments MDM: 84-year-old female with a history of CHF arrives to the emergency department with hypoxia respiratory distress. She was trialed on BiPAP however her mental status continued to decline. She was intubated for worsening mental and respiratory status. Patient admitted to hospitalist service for further t reatment, evaluation and monitoring. Extensive evaluation was performed in attempt to identify or rule out: (See differential diagnosis section) The following tests were ordered, and results were reviewed by me and discussed with patient: (See diagnostic results section) Decision regarding hospitalization or escalation of hospital level of care: Risk and benefits of admission for further treatment of patient's condition was considered. Due to patient's current clinical condition, high risk of decline and poor outcome if discharged and need for further inpatient management and monitoring, patient will be admitted to the hospital. Critical Care Note Critical Care Time?: No Stability Stability form required: No Heart Score Heart Score: Heart Score Response (Comments) Value History N/A 0 EKG N/A 0 Age N/A 0 Risk Factors N/A 0 Troponin N/A 0 Total 0 I personally scribed for ALEJO FERNANDEZ MD ([email or web address]) on 03/11/25 at 20:00. Electronically submitted by Keri Aguirre ([email or web address]). I personally scribed for ALEJO FERNANDEZ MD ([email or web address]) on 03/11/25 at 21:12. Electronically submitted by Keri Aguirre ([email or web address]). AELJO FERNANDEZ MD Mar 11, 2025 20:00
[2025-03-11] MEDS: FUROSEMIDE 40 MG/4 ML VIAL IV ONE (20:03)
--- NOTE | 2025-03-11 20:03 | ECG ---
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
[2025-03-11 20:13] LABS: Base Excess -7.5 mmol/L (-2.0-3.0)
[2025-03-11] MEDS ORDERED: ALBUTEROL SULF 2.5 MG/0.5ML(0.5%) NEB SOLN NEB ONE (20:15)
[2025-03-11] MEDS: NITROGLYCERIN 50MG/250ML 250 ML IV ONE (20:20)
[2025-03-11] MEDS: IPRATROPIUM BROM 0.5 MG/2.5ML INH SOL NEB ONE (20:25)
[2025-03-11] MEDS: ALBUTEROL SULF 2.5 MG/0.5ML(0.5%) NEB SOLN NEB ONE (20:25)
[2025-03-11 20:27] LABS: Chloride 99 mmol/L (98-107); Potassium 5.1 mmol/L (3.5-5.1)
[2025-03-11 20:28] LABS: Anion Gap 7 (5-15); Carbon Dioxide 25 mmol/L (20-31)
[2025-03-11 20:29] LABS: Calcium 9.0 mg/dL (8.7-10.4)
[2025-03-11 20:31] LABS: Hematocrit 36.6 % (36.0-46.0); Hemoglobin 11.7 g/dL (12.2-16.2); Mean Corpuscular Hemoglobin 27.4 pg (28.0-32.0); Mean Corpuscular Volume 85.8 fL (80.0-100.0); Nucleated Red Blood Cells % 0.1 %
[2025-03-11 20:34] LABS: BUN/Creatinine Ratio 13.6 (10.0-20.0); Blood Urea Nitrogen 18 mg/dL (9-23); Glucose 200 mg/dL (74-106); Sodium 131 mmol/L (136-145)
[2025-03-11] MEDS: SUCCINYLCHOLINE CHLORIDE 20 MG/ML 10ML VIAL IV ONE (20:51)
[2025-03-11] MEDS: ETOMIDATE (2MG/ML) 20ML VIAL IV ONE (20:51)
[2025-03-11] MEDS: MIDAZOLAM DRIP 50 mg/50mL 50 ML IV SCH (21:00)
--- NOTE | 2025-03-11 21:03 | DVH ---
CHEST RADIOGRAPH Indication: cp Technique: Single frontal view of the chest was obtained COMPARISON: XY CHEST PORTABLE on DOS: 05/30/24, XY CHEST PORTABLE on DOS: 05/27/24, XY CHEST XRAY 1 VIEW on DOS: 05/26/24, XY CHEST PORTABLE on DOS: 05/22/24, XY CHEST TWO VIEWS ROUTINE on DOS: 09/19/23 FINDINGS: Lines and Tubes: Pacemaker/ AICD in the left upper chest with multiple cardiac leads. Lungs: Multifocal pneumonia throughout both lungs. Pleura: No effusion. No pneumothorax. Cardiomediastinal contours: Unremarkable Bones: Unremarkable IMPRESSION: 1. Multifocal pneumonia throughout both lungs.
--- NOTE | 2025-03-11 21:19 | ECG ---
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
[2025-03-11] MEDS: fentaNYL Drip 2500mCg/250mlNS 250 ML IV SCH (22:15)
--- NOTE | 2025-03-11 22:17 | DVH ---
CHEST RADIOGRAPH Indication: INTUBATED Technique: Single frontal view of the chest was obtained Comparison: XY CHEST XRAY 1 VIEW on DOS: 03/11/25, XY CHEST PORTABLE on DOS: 05/30/24, XY CHEST PORTAB LE on DOS: 05/27/24, XY CHEST XRAY 1 VIEW on DOS: 05/26/24, XY CHEST PORTABLE on DOS: 05/22/24 FINDINGS/IMPRESSION: Interval placement of endotracheal tube which terminates approximately 2.5 cm above the brii. Naso gastric tube courses below the diaphragm with tip extending outside field of view. Prominent intersti tial markings with bibasilar opacities. Unchanged cardiomediastinal silhouette. No pleural effusion o r pneumothorax. The left costophrenic angle is partially excluded from field of view. Left-sided du al-chamber pacemaker. Unchanged osseous structures.
[2025-03-11 22:19] VITALS: BP 122/28; PULSE 94; RESP 20; O2SAT 100
[2025-03-11 22:27] LABS: Base Excess -5.7 mmol/L (-2.0-3.0)
[2025-03-11] MEDS ORDERED: MORPHINE SULFATE INJ 2 MG/ml SYRG IV PRN (23:30)
[2025-03-11] MEDS ORDERED: NITROGLYCERIN 0.4 MG SL TAB SL PRN (23:30)
[2025-03-11] MEDS ORDERED: VANCOMYCIN PER PHARMACY 0 MG IV SCH (23:30)
[2025-03-11] MEDS ORDERED: ONDANSETRON HCL 4 MG/2 ML VIAL IV PRN (23:30)
[2025-03-11] MEDS ORDERED: ACETAMINOPHEN 325 MG TAB PO PRN (23:30)
[2025-03-11] MEDS: VANCOMYCIN 1GM/250ML KIT 250 ML IV ONE (23:30)
[2025-03-11] MEDS ORDERED: ALBUTEROL SULF 2.5 MG/0.5ML(0.5%) NEB SOLN NEB PRN (23:30)
[2025-03-11 23:39] VITALS: BP 122/28; PULSE 94; RESP 20; TEMP 96.6; O2SAT 100
[2025-03-12] VITALS (106 sets, daily range): BP systolic 79–154; BP diastolic 43–84; PULSE 70–100; RESP 12–33; TEMP 97.7–100.4; O2SAT 92–100
[2025-03-12] MEDS: MIDAZOLAM DRIP 50 mg/50mL 50 ML IV ONE (00:47)
[2025-03-12] MEDS: ETOMIDATE (2MG/ML) 20ML VIAL IV ONE (00:47)
[2025-03-12] MEDS: SUCCINYLCHOLINE CHLORIDE 20 MG/ML 10ML VIAL IV ONE (00:47)
--- NOTE | 2025-03-12 01:14 | DVHHP2 ---
History of Present Illness Reason for Visit: Shortness for breath History of Present Illness 54-year-old female presents for evaluation of shortness for breath. Patient is currently sedated and intubated. Patient initially called EMS with complaints of shortness for breath that had started yesterday. Patient was placed on CPAP EN route. In the emergency department patient was alert and oriented. Throughout the ER stay patient became more lethargic and tachypneic and had to me emergently intubated for airway protection. Past Medical History Diabetes mellitus, COPD, CHF Past Surgical History Unknown Family History Unknown Review of Systems Review of Systems Review of systems can not be completed, patient is sedated and intubated. Allergies: Coded Allergies: NO KNOWN ALLERGIES (Unverified , 08/19/17) Medications Current Medications Medications Dose Ordered Sig/Long Route Start Time Stop Time Status Last Admin Dose Admin Midazolam HCl 50 ml @ 1 mls/hr Q24H IV 03/11/25 22:15 03/11/25 21:00 1 MLS/HR Fentanyl Citrate 250 ml @ 2.5 mls/hr Q24H IV 03/11/25 22:15 Norepinephrine Bitartrate 250 ml @ 3.75 mls/hr Q24H IV 03/11/25 23:30 UNV Cefepime HCl 50 ml @ 12.5 mls/hr Q12HR IV 03/12/25 10:00 UNV Vancomycin HCl 0 ml @ 0 mls/hr UD IV 03/11/25 23:30 UNV Albuterol 2.5 mg Q6HPRN PRN NEB 03/11/25 23:30 UNV Furosemide 20 mg DAILY IV 03/12/25 10:00 UNV Ondansetron HCl 4 mg Q4HP PRN IV 03/11/25 23:30 UNV Enoxaparin Sodium 40 mg DAILY SC 03/12/25 10:00 UNV Acetaminophen 650 mg Q6HP PRN PO 03/11/25 23:30 UNV Nitroglycerin 0.4 mg Q5MINP PRN SL 03/11/25 23:30 UNV Morphine Sulfate 2 mg Q30M PRN IV 03/11/25 23:30 UNV Pantoprazole Sodium 40 mg DAILY IV 03/12/25 10:00 UNV Exam Vital Signs Vital Signs Date Time Temp Pulse Resp B/P (MAP) Pulse Ox O2 Delivery O2 Flow Rate FiO2 10/23/25 00:20 76 21 95/50 (65) 100 80 03/11/25 23:39 96.6 96.6 03/11/25 20:00 Bi-Pap+ Exam Gen: 54-year-old female in mild distress. Skin: Warm, dry, normal color and texture, no rash. HEENT: Normocephalic atraumatic, mucous membranes moist and pink. Neck: Cervical and supraclavicular nodes normal without enlargement, trachea is midline, thyroid gland is normal without masses. Pulmonary: Intubated, bilateral rhonchi Cardiac: Regular rate and rhythm. No murmur Abdomen: Soft, nontender, nondistended, bowel sounds present all 4 quadrants, no guarding, no rigidity, no organomegaly. Extremities: No cyanosis, clubbing, no edema Neuro: Sedated Labs/Xrays ORDERING PHYSICIAN: ALEJO FERNANDEZ MD PROCEDURE(s): CXR1 - CHEST XRAY 1 VIEW REASON: INTUBATED ORDER NUMBER(s): [id number], ACCESSION NUMBER(s): [id number] CHEST RADIOGRAPH Indication: INTUBATED Technique: Single frontal view of the chest was obtained Comparison: XY CHEST XRAY 1 VIEW on DOS: 03/11/25, XY CHEST PORTABLE on DOS: 05/30/24, XY CHEST PORTABLE on DOS: 05/27/24, XY CHEST XRAY 1 VIEW on DOS: 05/26/24, XY CHEST PORTABLE on DOS: 05/22/24 FINDINGS/IMPRESSION: Interval placement of endotracheal tube which terminates approximately 2.5 cm above the brii. Nasogastric tube courses below the diaphragm with tip extending outside field of view. Prominent interstitial markings with bibasilar opacities. Unchanged cardiomediastinal silhouette. No pleural effusion or p neumothorax. The left costophrenic angle is partially excluded from field of view. Left-sided dual-chamber pacemaker. Unchanged osseous structures. Labs Test 03/11/25 23:00 03/11/25 22:12 03/11/25 20:06 Range/Units Troponin I High Sensitivity 14 </=34 ng/L Blood Gas Specimen Type Arterial Blood Gas Sample Site Right radial Blood Gas Patient Temperature 37.0 Arterial Blood Date Drawn Arterial Blood pH 7.278 L 7.350-7.450 Arterial Blood Partial Pressure CO2 45.9 H 32.0-45.0 mmHg Arterial Blood Partial Pressure O2 310.1 *H 83.0-108.0 mmHg Arterial Blood HCO3 21.0 21.0-28.0 mmol/L Arterial Blood Oxygen Saturation 99.7 H 94.0-98.0 % Arterial Blood Base Excess -5.7 L -2.0-3.0 mmol/L Arterial Blood Oxyhemoglobin 98.5 H 94.0-98.0 % Arterial Blood Carboxyhemoglobin 0.6 0.5-1.5 % Arterial Blood Methemoglobin 0.6 0.0-1.5 % Adryan Test Modified Blood Gas Total Hemoglobin 12.80 12.0-16.0 g/dL Blood Gas Set Respiration Rate 20.0 Blood Gas Modality Vent - ac FiO2 % 100.0 Blood Gas Tidal Volume 400.0 Blood Gas PEEP or CPAP 5.0 Blood Gas Critical Value Read Back Yes Blood Gas Notified Whom iveth Fernandez md Blood Gas Notified Time Blood Gas Notified By darrian Connors rrt White Blood Count 12.9 H 4.4-10.8 10^3/uL Red Blood Count 4.26 4.0-5.20 10^6/uL Hemoglobin 11.7 L 12.2-16.2 g/dL Hematocrit 36.6 36.0-46.0 % Mean Corpuscular Volume 85.8 80.0-100.0 fL Mean Corpuscular Hemoglobin 27.4 L 28.0-32.0 pg Mean Corpuscular Hemoglobin Concent 32.0 32.0-36.0 g/dL Red Cell Distribution Width 17.9 H 11.8-14.3 % Platelet Count 410 140-450 10^3/uL Mean Platelet Volume 7.4 6.9-10.8 fL Neutrophils (%) (Auto) 76.0 37.0-80.0 % Lymphocytes (%) (Auto) 13.8 10.0-50.0 % Monocytes (%) (Auto) 6.5 0.0-12.0 % Eosinophils (%) (Auto) 2.9 0.0-7.0 % Basophils (%) (Auto) 0.8 0.0-2.0 % Neutrophils # (Auto) 9.8 H 1.6-8.6 10 ^3/uL Lymphocytes # (Auto) 1.8 0.4-5.4 10 ^3/uL Monocytes # (Auto) 0.8 0-1.3 10 ^3/uL Eosinophils # (Auto) 0.4 0-0.8 10 ^3/uL Basophils # (Auto) 0.1 0-0.2 10 ^3/uL Nucleated Red Blood Cells 0.1 % Sodium Level 131 L 136-145 mmol/L Potassium Level 5.1 3.5-5.1 mmol/L Chloride Level 99 98-107 mmol/L Carbon Dioxide Level 25 20-31 mmol/L Anion Gap 7 5-15 Blood Urea Nitrogen 18 9-23 mg/dL Creatinine 1.32 H 0.550-1.02 mg/dL Glomerular Filtration Rate Calc 40 >90 mL/min BUN/Creatinine Ratio 13.6 10.0-20.0 Serum Glucose 200 H 74-106 mg/dL Calcium Level 9.0 8.7-10.4 mg/dL B-Type Natriuretic Peptide 1076.29 0-100 pg/mL SEPSIS Sepsis Screen Date sepsis recognized/suspect: Mar 11, 2025 Time Sepsis recognized/suspect: 2006 Recent Procedure: No On Antibiotic Therapy: Yes Respiratory Rate >20: Yes Heart Rate >90: Yes Temp<36 C (96.8 F) or >38.3 C: No SBP <90 or MAP <65 mmHG: No New Acute Mental Status Change: No Is the patient on CPAP, BIPAP,: Yes Physician Orders Chest Xray 1 View (03/11/25 19:55) Vital Signs Q1HR (03/11/25 19:55) Saline Lock (03/11/25 19:55) Button Maker And Installer (03/11/25 ) Electrocardigram (03/11/25 22:55) Nitroglycerin 50mg/250ml (Tridil) (03/11/25 20:00) BIPAP (03/11/25 20:01) Abg W/ Co-Ox (03/11/25 20:05) Abg W/ Co-Ox (03/11/25 22:30) Respiratory Culture W/ Gs (03/11/25 21:23) Ventilator Orders (03/11/25 21:23) Chest Xray 1 View (03/11/25 21:39) Abg W/ Co-Ox (03/11/25 22:06) Midazolam Drip 50 Mg/50ml (Versed Drip 5 (03/11/25 22:15) Fentanyl Drip 2500mcg/250mlns (03/11/25 22:15) Rass Sedation Scale Q1HR (03/11/25 22:10) Norepinephrine 8 Mg/250ml Kit (Levophed) (03/11/25 23:30) Cefepime 1gm/50ml (Maxipime 1gm/50ml) (03/12/25 10:00) Vancomycin Per Pharmacy (03/11/25:30) Vancomycin 1gm/250ml Kit (03/11/25 23:30) Albuterol Medneb (Ventolin Medneb) (03/11/25 23:30) Furosemide Injection (Lasix Injection) (03/12/25 10:00) Admit (03/11/25 23:) Ondansetron Hcl (Zofran) (03/11/25 23:30) Enoxaparin Sodium (Lovenox) (03/12/25 10:00) Complete Blood Count (03/12/25 04:00) Comprehensive Metabolic Panel (03/12/25 04:00) Condition: Unstable (03/11/25:) Acetaminophen Tablet (Tylenol Tablet) (03/11/25 23:30) Sequential Compression Device (03/11/25 ) Nitroglycerin Sublingual (Ntrostat Subli (03/11/25:30) Morphine Sulfate Injection (03/11/25:30) Stat Ekg For Chest Pain (03/11/25:) Notify Md Of Changes From Base (03/11/25:) Maintenance Team Leader For 24 Hours (03/11/25:) Emergency Dysrhythmia Protocol (03/11/25:) Rhythm Strips Once Every Shift (03/11/25:) Oxygen By Nasal Cannula (03/11/25:) Pantoprazole (Protonix) (03/12/25 10:00) Pantoprazole (Protonix) (03/11/25 23:30) Cefepime 1gm/50ml (Maxipime 1gm/50ml) (03/11/25 23:30) D-Dimer (03/12/25 01:10) Vital Signs Date Time Temp Pulse Resp B/P (MAP) Pulse Ox O2 Delivery O2 Flow Rate FiO2 03/12/25 00:20 76 21 95/50 (65) 100 80 03/12/25 00:00 79 03/12/25 00:00 74 20 100/56 (71) 100 03/11/25 23:39 96.6 94 20 122/28 100 80 96.6 03/11/25 23:30 78 21 70/39 (49) 100 03/11/25 23:15 79 21 70/39 (49) 100 03/11/25 23:00 97 24 75/45 (55) 100 03/11/25 23:00 91/60 03/11/25 22:45 83 21 88/57 (67) 100 03/11/25 22:30 113/69 03/11/25 22:30 89 20 113/68 (83) 100 03/11/25 22:19 94 20 122/28 (59) 100 80 03/11/25 22:15 95 23 129/80 (96) 100 03/11/25 22:00 95 21 124/75 (91) 100 03/11/25 22:00 124/75 03/11/25 21:45 103 18 119/77 (91) 100 03/11/25 21:30 91 20 104/66 (79) 100 03/11/25 21:30 104/66 03/11/25 21:15 98 20 122/78 (93) 100 03/11/25 21:13 100 03/11/25 21:00 98 20 155/93 (113) 100 100 03/11/25 21:00 145/95 03/11/25 21:00 98 26 145/95 (112) 98 03/11/25 20:40 101 28 157/84 (108) 96 03/11/25 20:30 105 28 156/84 (108) 98 03/11/25 20:20 159/85 03/11/25 20:15 99 27 162/89 (113) 99 03/11/25 20:03 160/83 03/11/25 20:03 96.6 114 21 168/96 93 96.6 03/11/25 20:00 30 Bi-Pap+ 60 60 03/11/25 20:00 98 28 160/83 (108) 97 03/11/25 19:56 97 03/11/25 19:54 96 24 158/87 (110) 97 Laboratory Tests Test 03/11/25 20:06 White Blood Count 12.9 10^3/uL (4.4-10.8) H Medications Medications Dose Ordered Sig/Long Route Start Time Stop Time Status Last Admin Dose Admin Albuterol 2.5 mg ONCE ONCE NEB 03/11/25 20:00 03/11/25 20:01 DC 03/11/25 20:25 2.5 MG Ceftriaxone Sodium 50 ml @ 100 mls/hr ONCE ONCE IV 03/11/25 22:15 03/11/25 22:44 DC 03/12/25 00:57 100 MLS/HR Etomidate 20 mg ONCE ONCE IV 03/11/25 22:15 03/11/25 22:16 DC 03/11/25 20:51 20 MG Furosemide 40 mg ONCE ONCE IV 03/11/25 20:00 03/11/25 20:01 DC 03/11/25 20:03 40 MG Ipratropium [place] 0.5 mg ONCE ONCE NEB 03/11/25 20:00 03/11/25 20:01 DC 03/11/25 20:25 0.5 MG Midazolam HCl 50 ml @ 1 mls/hr Q24H IV 03/11/25 22:15 03/11/25 21:00 1 MLS/HR Nitroglycerin 250 ml @ 1.5 mls/hr Q24H ONCE IV 03/11/25 20:00 03/12/25 19:59 03/11/25 20:20 1.5 MLS/HR Succinylcholine Chloride 100 mg ONCE ONCE IV 03/11/25 22:15 03/11/25 22:16 DC 03/11/25 20:51 100 MG Assessment/Plan Assessment/Plan Assessment Acute hypoxic/hypercapnic respiratory failure Multifocal pneumonia CHF COPD Plan Admit the patient to ICU to the hospitalist Cefepime/vancomycin Med nebs IV Lasix D-dimer pending Continue treatment per orders. Total critical care time excluding procedures performed this 55 minutes. Plan discussed with: Patient My Orders Orders - LINDA WELLS Procedure Category Date Status Time Cefepime 1gm/50ml PHA 03/12/25 Logged (Maxipime 1gm/50ml) 10:00 Vancomycin Per PHA 03/11/25 Logged Pharmacy 23:30 Vancomycin 1gm/250ml PHA 03/11/25 Logged Kit 23:30 Albuterol Medneb PHA 03/11/25 Logged (Ventolin Medneb) 23:30 Furosemide Injection PHA 03/12/25 Logged (Lasix Injection) 10:00 Admit ADMIT 03/11/25 Transmitted 23:27 Ondansetron Hcl PHA 03/11/25 Logged (Zofran) 23:30 Enoxaparin Sodium PHA 03/12/25 Logged (Lovenox) 10:00 Complete Blood Count LAB 03/12/25 Logged 04:00 Comprehensive LAB 03/12/25 Logged Metabolic Panel 04:00 Condition: Unstable JOSUE 03/11/25 In Process 23:27 Acetaminophen Tablet PHA 03/11/25 Logged (Tylenol Tablet) 23:30 Sequential JOSUE 03/11/25 In Process Compression Device Nitroglycerin PHA 03/11/25 Logged Sublingual (Ntrostat 23:30 Morphine Sulfate PHA 03/11/25 Logged Injection 23:30 Stat Ekg For Chest [facility] 03/11/25 In Process Pain 23:27 Notify Of Changes [facility] 03/11/25 In Process From Base 23:27 Maintenance Team Leader For [facility] 03/11/25 In Process 24 Hours 23:27 Emergency Dysrhythmia [facility] 03/11/25 In Process Protocol 23:27 Rhythm Strips Once [facility] 03/11/25 In Process Every Shift 23:27 Oxygen By Nasal RT 03/11/25 Transmitted Cannula 23:27 Pantoprazole PHA 03/12/25 Logged (Protonix) 10:00 Pantoprazole PHA 03/11/25 Logged (Protonix) 23:30 Cefepime 1gm/50ml PHA 03/11/25 Logged (Maxipime 1gm/50ml) 23:30 D-Dimer LAB 03/12/25 Verified 01:10 Date of Service: Mar 11, 2025 Billing Provider: LINDA WELLS Common Visit Codes: [id number] CARE 30-74 MIN LINDA WELLS Mar 12, 2025 01:14
[2025-03-12 01:56] LABS: Nucleated Red Blood Cells % 0.0 %
[2025-03-12 01:58] LABS: Hematocrit 34.8 % (36.0-46.0); Hemoglobin 11.3 g/dL (12.2-16.2); Mean Corpuscular Hemoglobin 27.4 pg (28.0-32.0); Mean Corpuscular Volume 84.4 fL (80.0-100.0)
[2025-03-12 02:31] LABS: Alanine Aminotransferase 34 U/L (7-40); Albumin 3.6 g/dL (3.2-4.8); Alkaline Phosphatase 101 U/L (46-116); Anion Gap 7 (5-15); BUN/Creatinine Ratio 14.9 (10.0-20.0); Blood Urea Nitrogen 20 mg/dL (9-23); Carbon Dioxide 27 mmol/L (20-31); Chloride 100 mmol/L (98-107); Potassium 4.9 mmol/L (3.5-5.1); Total Protein 6.0 g/dL (5.7-8.2)
[2025-03-12 02:32] LABS: Bilirubin, Total 0.4 mg/dL (0.2-1.0)
[2025-03-12 02:34] LABS: Calcium 8.2 mg/dL (8.7-10.4); Glucose 137 mg/dL (74-106); Sodium 134 mmol/L (136-145)
[2025-03-12] MEDS: NOREPINEPHRINE 8 MG/250ML KIT 250 ML IV SCH ×2 (03:20→17:48)
[2025-03-12] MEDS: VANCOMYCIN 1GM/250ML KIT 250 ML IV ONE (03:46)
[2025-03-12] MEDS: PANTOPRAZOLE 40 MG/10 ML VIAL INJ IV ONE (03:47)
[2025-03-12] MEDS: CEFEPIME 1GM/50ML 50 ML IV ONE (03:47)
[2025-03-12 08:04] LABS: Base Excess -1.2 mmol/L (-2.0-3.0)
[2025-03-12] MEDS ORDERED: ENOXAPARIN SOD 40 MG/0.4 ML SYRINGE SC SCH ×2 (10:00)
[2025-03-12] MEDS ORDERED: DEXTROSE (50%) 50ML SYRG IV PRN (10:30)
[2025-03-12] MEDS: PANTOPRAZOLE 40 MG/10 ML VIAL INJ IV SCH (10:39)
[2025-03-12] MEDS: CEFEPIME 1GM/50ML 50 ML IV SCH (10:39)
[2025-03-12] MEDS: FUROSEMIDE 20 MG/2 ML VIAL IV SCH (10:39)
[2025-03-12] MEDS: ENOXAPARIN SOD 30 MG/0.3 ML SYRINGE SC SCH (10:40)
[2025-03-12] MEDS: CLOPIDOGREL BISULFATE 75 MG TAB GT ONE (11:51)
[2025-03-12] MEDS: AMIODARONE HCL 200 MG TAB GT ONE (11:51)
[2025-03-12] MEDS: InsuLIN REG 1unit/0.01ml Soln (100units/ml) SC SCH (12:00)
[2025-03-12] MEDS: ACCU-CHEK COMFORT CURVE STRIP VI SCH (12:22)
[2025-03-12] MEDS: ALBUTEROL SULF 2.5 MG/0.5ML(0.5%) NEB SOLN NEB SCH (12:46)
[2025-03-12 14:22] LABS: COVID19 ANTIGEN SOFIA FIA NEGATIVE (NEGATIVE)
--- NOTE | 2025-03-12 14:57 | DVH ---
Bilateral lower extremity venous duplex Clinical History: edema Comparison: US BILAT LOWER DVT on DOS: 08/03/23 Findings: Duplex Doppler evaluation of the deep venous systems of both lower extremities from the common femora l veins to the popliteal veins including color Doppler and spectral/pulsed waveform analysis was perf ormed. RIGHT SIDE: The common femoral vein demonstrates appropriate compressibility and waveform variability. There is compressibility/patency of the great saphenous vein at the proximal thigh. The femoral vein demonstrates appropriate compressibility and waveform variability. The deep femoral vein demonstrates appropriate compressibility and waveform variability. The popliteal vein demonstrates appropriate compressibility and waveform variability. There is normal compressibility at the tibioperoneal trunk. LEFT SIDE: The common femoral vein demonstrates appropriate compressibility and waveform variability. There is compressibility/patency of the great saphenous vein at the proximal thigh. The femoral vein demonstrates appropriate compressibility and waveform variability. The deep femoral vein demonstrates appropriate compressibility and waveform variability. The popliteal vein demonstrates appropriate compressibility and waveform variability. There is normal compressibility at the tibioperoneal trunk. IMPRESSION: No right or left femoropopliteal venous thrombosis. If clinical concern/symptoms persist or worsen, short-interval follow-up study is suggested. END IMPRESSION:
[2025-03-12 15:59] LABS: Urine Protein, UAD Negative (Negative)
[2025-03-12] MEDS: MIDAZOLAM DRIP 100 mg/100mL NS 100 ML IV SCH (18:00)
[2025-03-12] MEDS: ALBUTEROL SULF 2.5 MG/0.5ML(0.5%) NEB SOLN ONE (18:41)
--- NOTE | 2025-03-12 18:45 | DVHPNRES ---
Progress Note Date Seen: Mar 12, 2025 Resident Creating Document: LAURO SANTIZO RESIDENT Medical Necessity Reason Pt with a Central, PICC or Fol: Yes The following are medically ne: Salas Catheter Subjective Review of Systems Patient is 54-year-old female who brought to the hospital with a chief complaint of shortness of breath. During initial evaluation in emergency department, patient found to have low oxygen saturation at 33% on room air, initially put on BiPAP, L to protect the airway patient was intubated on 03/11/2025. Past medical history: Pulmonary artery hypertension, HFrEF, Chronic obstructive pulmonary disease, sick sinus syndrome status post pacemaker, atrial fibrillation, diabetes mellitus, lipids, hypertension Past surgical history: Take care bilateral tubal ligation Personal history: Smoker, no history of alcohol or drug use. 03/12/2025: Patient seen in ICU. Intubated and sedated. On minimal vasopressor requirement. Receiving antibiotics. No any other night events. Objective vital signs Vital Sign Date Time Temp Pulse Resp B/P (MAP) Pulse Ox O2 Delivery O2 Flow Rate FiO2 03/12/25 18:06 84 03/12/25 18:05 35 03/12/25 18:05 20 96 Mechanical Ventilator+ 03/12/25 18:00 99.7 137/56 (83) 211.5 03/12/25 08:00 0 Total Intake and Output 03/11/25 03/11/25 03/12/25 15:00 23:00 07:00 Intake Total 460.00 ml Output Total 1000 ml Balance -540.00 ml medications Current Medications Medications Dose Ordered Sig/Long Route Start Time Stop Time Status Last Admin Dose Admin Fentanyl Citrate 250 ml @ 2.5 mls/hr Q24H IV 03/11/25 22:15 03/12/25 02:20 2.5 MLS/HR Vancomycin HCl 0 ml @ 0 mls/hr UD IV 03/11/25 23:30 Furosemide 20 mg DAILY IV 03/12/25 10:00 03/12/25 10:39 20 MG Enoxaparin Sodium 40 mg DAILY SC 03/12/25 10:00 UNV Pantoprazole Sodium 40 mg DAILY IV 03/12/25 10:00 03/12/25 10:39 40 MG Enoxaparin Sodium 30 mg DAILY SC 03/12/25 10:00 03/12/25 10:40 30 MG Norepinephrine Bitartrate 250 ml @ 3.75 mls/hr Q24H IV 03/12/25 09:45 Albuterol 2.5 mg Q6H NEB 03/12/25 12:00 03/12/25 12:46 2.5 MG Amiodarone HCl 200 mg Q12HR GT 03/12/25 22:00 Clopidogrel Bisulfate 75 mg DAILY GT 03/13/25 10:00 Diagnostic Test (Pha) 1 strip Q6HR 03/12/25 12:00 03/12/25 12:22 1 STRIP Insulin Human Regular Q6HR SC 03/12/25 12:00 Dextrose 50 ml UD PRN IV 03/12/25 10:30 Cefepime HCl 50 ml @ 12.5 mls/hr DAILY IV 03/13/25 10:00 Midazolam HCl 100 ml @ 1 mls/hr Q24H IV 03/12/25 18:00 Examination General Appearance: Sedated, intubated. Head Exam: Normal inspection Neck Exam: Normal inspection. Non-tender. Normal alignment Pulmonary/Respiratory: Chest non-tender. Bilateral crackles, mainly in bilateral base crackles. Cardiovascular/Chest: Regular rate and rhythm. No murmurs. No JVD. Peripheral Pulses: 2+ Radial (R). 2+ Radial (L). 2+ Pedal (R). 2+ Pedal (L) Abdominal Exam: Normal bowel sounds. Soft. Nontender. No hepatospenomegaly. No masses Ankle Exam: Negative ankle edema Lower extremities: Negative lower extremity edema Neuro/Mental Status: Sedated. Pinpoint pupils. Cough and gag reflex present. Thoughts/Psych: Sedated laboratory and microbiology Laboratory Tests 03/12/25 01:45 Test 03/12/25 01:45 Range/Units Serum Glucose 137 H 74-106 mg/dL Microbiology Date/Time Source Procedure Growth Status 03/12/25 01:45 Nose MRSA Screen - Final Complete 03/11/25 21:40 Sputum Gram Stain - Final Resulted 03/11/25 21:40 Sputum Respiratory Culture - Preliminary Resulted Problem List/Assessment/Plan Problem List/Assessment/Plan Neurology Acute metabolic encephalopathy Sedated -on Versed and fentanyl. -continue management of heart failure and septic shock Cardiology Acute HFpEF Paroxysmal atrial fibrillation History of hypertension -IV Lasix 20 mg daily -continue to monitor electrolytes: Magnesium, potassium. -echocardiogram on 11/19/2024: Ejection fraction greater than 55%, left and right atrial enlargement -amiodarone 200 mg q.12. Patient used to take Eliquis before, given history of bleeding. Patient is only on Plavix. -Plavix 75 mg daily -cardiology consultation -strict I&O -BNP: 1093 Respiratory Acute on chronic hypoxic and hypercapnic respiratory failure -ventilation: Respiratory rate 20, tidal volume 400, FiO2 35%, peep five. -ABG: PH 7.382, pCO2 40.9, HC03 23.8. -IV antibiotic with cefepime and vancomycin -pancultures -respiratory cultures growing young colonies -albuterol 2.5 mg nebulization q.6 Pneumonia Gram-positive versus negative -see the management of respiratory failure Pulmonary hypertension -avoid any antihypertensive medication Chronic obstructive pulmonary disease exacerbation -continue management of respiratory failure Infection Septic shock due to pneumonia Gram-positive versus negative -IV antibiotic with cefepime and vancomycin -IV vasopressor with Levophed -maintain map greater than 65 -respiratory culture growing young colonies -lactic acid -urinalysis no signs of active UTI. Hematology Normocytic, normochromic anemia -hemoglobin 11.3 -continue to monitor. -iron panel Endocrine Diabetes mellitus type 2 HGB A1c 6% on 03/12/2025 Dyslipidemia -insulin sliding scale Lines: 2 peripheral IV lines Salas catheter PUD prophylaxis with Protonix DVT prophylaxis with Lovenox Critical care time spent greater than 82 minutes. Plan discussed with Dr. Chang Plan discussed with: Other (RN) My Orders My Orders Orders - LAURO SANTIZO Procedure Category Date Status Time Norepinephrine 8 PHA 03/12/25 In Process Mg/250ml Kit 09:45 Communication Order ORDERS 03/12/25 Transmitted 09:39 Albuterol Medneb PHA 03/12/25 In Process (Ventolin Medneb) 12:00 Amiodarone Tablet PHA 03/12/25 In Process (Cordarone Tablet) 22:00 Clopidogrel Bisulfate PHA 03/13/25 In Process (Plavix) 10:00 Rapid Influenza A&B LAB 03/12/25 Logged 10:29 Blood Culture GIANNA 03/12/25 In Process 10:29 Glucose Blood PHA 03/12/25 In Process (Accu-Chek Comfort 12:00 Insulin R (Human) PHA 03/12/25 In Process (Insulin R) 12:00 Dextrose 50% Syringe PHA 03/12/25 In Process 10:30 Bilat Lower Dvt US 03/12/25 Resulted 13:19 Dietary Evaluation Review Comments: Nutrition Plan Summary: Enteral Nutrition (EN): Patient is underweight with elevated glucose. Recommend Glucerna via tube feeding at 45 mL/hr. Provides: 65g protein 1296 kcal 869 mL free water over 24 hours Meets 116% of protein and 137% of energy needs Initiation: Start at 20 mL/hr, increase by 10 mL every 6 hours until goal rate is reached. Alternative Nutrition: Consider TPN per pharmacy if EN is not feasible. Reassessment Plan: After extubation, reassess. 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 Would you like this formatted for a progress note or consult report? Expected Outcomes/Goals: 1. being extubated and able to eat orally, 2. gradually healinf of sacral ulcer and gaining body weight. 3. overall improvement of health status. Date of Service: Mar 12, 2025 Billing Provider: LINDA FLORES MD Common Visit Codes: [id number] CARE 30-74 MIN, [id number] CARE-EACH +30MIN LAURO SANTIZO Mar 12, 2025 18:45 LINDA FLORES MD Mar 14, 2025 12:25
[2025-03-12] MEDS ORDERED: Glucerna 1.2 Cal 1Liter BOTTLE GT SCH (19:00)
[2025-03-12] MEDS: AMIODARONE HCL 200 MG TAB GT SCH (21:29)
[2025-03-13] VITALS (107 sets, daily range): BP systolic 79–150; BP diastolic 40–81; PULSE 70–135; RESP 9–26; TEMP 88.5–100.8; O2SAT 89–100
[2025-03-13] MEDS: ACETAMINOPHEN 325 MG TAB PO PRN (00:10)
[2025-03-13 04:02] LABS: Hematocrit 37.5 % (36.0-46.0); Hemoglobin 11.7 g/dL (12.2-16.2); Mean Corpuscular Hemoglobin 26.9 pg (28.0-32.0); Mean Corpuscular Volume 86.1 fL (80.0-100.0); Nucleated Red Blood Cells % 0.0 %
[2025-03-13 04:09] LABS: Chloride 99 mmol/L (98-107); Potassium 4.5 mmol/L (3.5-5.1)
[2025-03-13 04:10] LABS: Anion Gap 12 (5-15); Calcium 8.7 mg/dL (8.7-10.4); Carbon Dioxide 25 mmol/L (20-31)
[2025-03-13 04:15] LABS: BUN/Creatinine Ratio 14.8 (10.0-20.0); Blood Urea Nitrogen 20 mg/dL (9-23); Glucose 87 mg/dL (74-106)
[2025-03-13 04:16] LABS: Magnesium 1.9 mg/dL (1.6-2.6)
[2025-03-13 04:34] LABS: Sodium 136 mmol/L (136-145)
--- NOTE | 2025-03-13 05:59 | DVH ---
CHEST RADIOGRAPH Indication: on vent Technique: Single frontal view of the chest was obtained COMPARISON: XY CHEST XRAY 1 VIEW on DOS: 03/11/25, XY CHEST XRAY 1 VIEW on DOS: 03/11/25, XY CHEST PO RTABLE on DOS: 05/30/24, XY CHEST PORTABLE on DOS: 05/27/24, XY CHEST XRAY 1 VIEW on DOS: 05/26/24 FINDINGS: Lines and Tubes: Endotracheal tube, enteric catheter in satisfactory position. Left chest wall pacema ker. Lungs: Mild pulmonary vascular congestion. Pleura: No effusion. No pneumothorax. Cardiomediastinal contours: Unremarkable Bones: Unremarkable IMPRESSION: Lines and tubes in satisfactory position. No significant interval change.
[2025-03-13 07:32] LABS: Base Excess -3.5 mmol/L (-2.0-3.0)
--- NOTE | 2025-03-13 09:16 | DVHPNRES ---
Progress Note Date Seen: Mar 13, 2025 Resident Creating Document: LAURO EASON RESIDENT Medical Necessity Reason Pt with a Central, PICC or Fol: Yes The following are medically ne: Salas Catheter Subjective Review of Systems Patient is 54-year-old female who brought to the hospital with a chief complaint of shortness of breath. During initial evaluation in emergency department, patient found to have low oxygen saturation at 33% on room air, initially put on BiPAP, L to protect the airway patient was intubated on 03/11/2025. Past medical history: Pulmonary artery hypertension, HFrEF, Chronic obstructive pulmonary disease, sick sinus syndrome status post pacemaker, atrial fibrillation, diabetes mellitus, lipids, hypertension Past surgical history: Take care bilateral tubal ligation Personal history: Smoker, no history of alcohol or drug use. 03/12/2025: Patient seen in ICU. Intubated and sedated. On minimal vasopressor requirement. Receiving antibiotics. No any other night events. 03/13/2025: Patient seen in ICU. Intubated and sedated. Urine output at least 750 mL in last 24 hour. Off vasopressor. No any night event. Plan for sedation vacation with breathing exercise with CPAP. Objective vital signs Vital Sign Date Time Temp Pulse Resp B/P (MAP) Pulse Ox O2 Delivery O2 Flow Rate FiO2 03/13/25 08:09 88 20 122/55 (77) 100 30 03/13/25 08:00 Mechanical Ventilator+ 03/13/25 08:00 0 03/13/25 06:15 99.0 210.2 Total Intake and Output 03/12/25 03/12/25 03/13/25 15:00 23:00 07:00 Intake Total 73.125 ml 43.0 ml 35.75 ml Output Total 550 ml 250 ml Balance 73.125 ml -507.0 ml -214.25 ml medications Current Medications Medications Dose Ordered Sig/Long Route Start Time Stop Time Status Last Admin Dose Admin Fentanyl Citrate 250 ml @ 2.5 mls/hr Q24H IV 03/11/25 22:15 03/12/25 02:20 2.5 MLS/HR Vancomycin HCl 0 ml @ 0 mls/hr UD IV 03/11/25 23:30 Enoxaparin Sodium 40 mg DAILY SC 03/12/25 10:00 UNV Pantoprazole Sodium 40 mg DAILY IV 03/12/25 10:00 03/12/25 10:39 40 MG Enoxaparin Sodium 30 mg DAILY SC 03/12/25 10:00 03/12/25 10:40 30 MG Norepinephrine Bitartrate 250 ml @ 3.75 mls/hr Q24H IV 03/12/25 09:45 Albuterol 2.5 mg Q6H NEB 03/12/25 12:00 03/13/25 06:28 2.5 MG Amiodarone HCl 200 mg Q12HR GT 03/12/25 22:00 03/12/25 21:29 200 MG Clopidogrel Bisulfate 75 mg DAILY GT 03/13/25 10:00 Diagnostic Test (Pha) 1 strip Q6HR 03/12/25 12:00 03/13/25 06:14 1 STRIP Insulin Human Regular Q6HR SC 03/12/25 12:00 Dextrose 50 ml UD PRN IV 03/12/25 10:30 Cefepime HCl 50 ml @ 12.5 mls/hr DAILY IV 03/13/25 10:00 Midazolam HCl 100 ml @ 1 mls/hr Q24H IV 03/12/25 18:00 Enteral Nutritional Formula 1,000 ml 30ML/HR GT 03/12/25 19:00 Acetaminophen 650 mg Q4HP PRN PO 03/12/25 19:00 03/13/25 00:10 650 MG Furosemide 20 mg BID IV 03/13/25 10:00 UNV Examination General Appearance: Sedated, intubated. Head Exam: Normal inspection Neck Exam: Normal inspection. Non-tender. Normal alignment Pulmonary/Respiratory: Chest non-tender. Crackles over right lower lung base. Cardiovascular/Chest: Regular rate and rhythm. No murmurs. No JVD. Peripheral Pulses: 2+ Radial (R). 2+ Radial (L). 2+ Pedal (R). 2+ Pedal (L) Abdominal Exam: Normal bowel sounds. Soft. Nontender. No hepatospenomegaly. No masses Ankle Exam: Negative ankle edema Lower extremities: Negative lower extremity edema Neuro/Mental Status: Sedated. Pinpoint pupils. Cough and gag reflex present. Thoughts/Psych: Sedated laboratory and microbiology Laboratory Tests 03/13/25 03:00 Test 03/13/25 03:00 Range/Units Serum Glucose 87 74-106 mg/dL Microbiology Date/Time Source Procedure Growth Status 03/12/25 01:45 Nose MRSA Screen - Final Complete 03/11/25 21:40 Sputum Gram Stain - Final Resulted 03/11/25 21:40 Sputum Respiratory Culture - Preliminary Resulted Problem List/Assessment/Plan Problem List/Assessment/Plan Neurology Acute metabolic encephalopathy Sedated -on Versed and fentanyl. -continue management of heart failure and septic shock Cardiology Acute HFpEF Paroxysmal atrial fibrillation History of hypertension -IV Lasix 20 mg BID -continue to monitor electrolytes: Magnesium, potassium. -echocardiogram on 11/19/2024: Ejection fraction greater than 55%, left and right atrial enlargement -amiodarone 200 mg q.12. Patient used to take Eliquis before, given history of bleeding. Patient is only on Plavix. -Plavix 75 mg daily -cardiology consultation -strict I&O -BNP: 1093 -Ivabrandine and digoxin by water filtration technician Respiratory Acute on chronic hypoxic and hypercapnic respiratory failure -ventilation: Respiratory rate 20, tidal volume 400, FiO2 35%, peep five. -IV antibiotic with cefepime and vancomycin -pancultures -respiratory cultures growing young colonies -albuterol 2.5 mg nebulization q.6 -mrsa Negative Pneumonia Gram-positive versus negative -see the management of respiratory failure Pulmonary hypertension -avoid any antihypertensive medication Chronic obstructive pulmonary disease exacerbation -continue management of respiratory failure Infection Septic shock due to pneumonia Gram-positive versus negative -IV antibiotic with cefepime and vancomycin -IV vasopressor with Levophed if needed. Off pressors today -maintain map greater than 65 -respiratory culture growing young colonies -urinalysis no signs of active UTI. Hematology Normocytic, normochromic anemia -hemoglobin 11.3 -continue to monitor. -iron panel Endocrine Diabetes mellitus type 2 HGB A1c 6% on 03/12/2025 Dyslipidemia -Insulin sliding scale Lines: 2 peripheral IV lines Salas catheter PUD prophylaxis with Protonix DVT prophylaxis with Lovenox Failed CPAP trial, getting apneic , CPAP trial tomorrow AM Critical care time spent greater than 84 minute. Plan discussed with Dr. Hidalgo D/w Dr Eason. See my separate progress note. Plan discussed with: Other (RN) My Orders My Orders Orders - LAURO EASON Procedure Category Date Status Time Norepinephrine 8 PHA 03/12/25 In Process Mg/250ml Kit 09:45 Communication Order ORDERS 03/12/25 Transmitted 09:39 Albuterol Medneb PHA 03/12/25 In Process (Ventolin Medneb) 12:00 Amiodarone Tablet PHA 03/12/25 In Process (Cordarone Tablet) 22:00 Clopidogrel Bisulfate PHA 03/13/25 In Process (Plavix) 10:00 Rapid Influenza A&B LAB 03/12/25 Logged 10:29 Blood Culture GIANNA 03/12/25 In Process 10:29 Glucose Blood PHA 03/12/25 In Process (Accu-Chek Comfort 12:00 Insulin R (Human) PHA 03/12/25 In Process (Insulin R) 12:00 Dextrose 50% Syringe PHA 03/12/25 In Process 10:30 Bilat Lower Dvt US 03/12/25 Resulted 13:19 Chest Xray 1 View XY 03/13/25 Resulted 04:00 Nutritional PHA 03/12/25 In Process Supplements (Glucerna 19:00 Acetaminophen Tablet PHA 03/12/25 In Process (Tylenol Tablet) 19:00 Abg W/ Co-Ox RT 03/13/25 Logged 04:00 Furosemide Injection PHA 03/13/25 Logged (Lasix Injection) 10:00 Dietary Evaluation Review Comments: Nutrition Plan Summary: Enteral Nutrition (EN): Patient is underweight with elevated glucose. Recommend Glucerna via tube feeding at 45 mL/hr. Provides: 65g protein 1296 kcal 869 mL free water over 24 hours Meets 116% of protein and 137% of energy needs Initiation: Start at 20 mL/hr, increase by 10 mL every 6 hours until goal rate is reached. Alternative Nutrition: Consider TPN per pharmacy if EN is not feasible. Reassessment Plan: After extubation, reassess. If patient passes CREDIT CARD SPECIALIST evaluation, [facility]. Would you like this formatted for a progress note or consult report? Expected Outcomes/Goals: 1. being extubated and able to eat orally, 2. gradually healinf of sacral ulcer and gaining body weight. 3. overall improvement of health status. LAURO EASON RESIDENT Mar 13, 2025 09:16 SNEHA HIDALGO MD Mar 18, 2025 13:21
[2025-03-13] MEDS ORDERED: FUROSEMIDE 20 MG/2 ML VIAL IV ONE (09:30)
[2025-03-13] MEDS: CEFEPIME 1GM/50ML 50 ML IV SCH (09:44)
[2025-03-13] MEDS: FUROSEMIDE 20 MG/2 ML VIAL IV SCH (09:46)
[2025-03-13] MEDS: CLOPIDOGREL BISULFATE 75 MG TAB GT SCH (09:46)
[2025-03-13 11:13] LABS: Total Iron Binding Capacity 262.0 ug/dL (250-425)
[2025-03-13 11:15] LABS: Iron 14.0 ug/dL (50-170)
--- NOTE | 2025-03-13 14:45 | DVHPN2 ---
Progress Note - Dictate Date Seen: Mar 13, 2025 Medical Necessity Reason Pt with a Central, PICC or Fol: Yes The following are medically ne: Salas Catheter Subjective PT WITH DILATED/ ISCHEMIC CM EFrEF ACUTE DECOMPENSATION S/P DUAL CHAMBER AICD S/P PTCA STENT DIAGONAL HX OF AFIB ACUTE RESP ARREST HYPOCAPNIA COPD DIABETES HTN vital signs Vital Sign Date Time Temp Pulse Resp B/P (MAP) Pulse Ox O2 Delivery O2 Flow Rate FiO2 03/13/25 13:45 98 20 113/46 (68) 95 30 03/13/25 10:52 100.4 03/13/25 08:00 Mechanical Ventilator+ 03/13/25 08:00 0 Total Intake and Output 03/12/25 03/12/25 03/13/25 15:00 23:00 07:00 Intake Total 73.125 ml 43.0 ml 38.25 ml Output Total 550 ml 250 ml Balance 73.125 ml -507.0 ml -211.75 ml medications Current Medications Medications Dose Ordered Sig/Long Route Start Time Stop Time Status Last Admin Dose Admin Fentanyl Citrate 250 ml @ 2.5 mls/hr Q24H IV 03/11/25 22:15 03/12/25 02:20 2.5 MLS/HR Vancomycin HCl 0 ml @ 0 mls/hr UD IV 03/11/25 23:30 Enoxaparin Sodium 40 mg DAILY SC 03/12/25 10:00 UNV Pantoprazole Sodium 40 mg DAILY IV 03/12/25 10:00 03/13/25 09:53 40 MG Enoxaparin Sodium 30 mg DAILY SC 03/12/25 10:00 03/13/25 09:45 30 MG Norepinephrine Bitartrate 250 ml @ 3.75 mls/hr Q24H IV 03/12/25 09:45 Albuterol 2.5 mg Q6H NEB 03/12/25 12:00 03/13/25 12:15 2.5 MG Amiodarone HCl 200 mg Q12HR GT 03/12/25 22:00 03/13/25 09:46 200 MG Clopidogrel Bisulfate 75 mg DAILY GT 03/13/25 10:00 03/13/25 09:46 75 MG Diagnostic Test (Pha) 1 strip Q6HR 03/12/25 12:00 03/13/25 06:14 1 STRIP Insulin Human Regular Q6HR SC 03/12/25 12:00 Dextrose 50 ml UD PRN IV 03/12/25 10:30 Cefepime HCl 50 ml @ 12.5 mls/hr DAILY IV 03/13/25 10:00 03/13/25 09:44 12.5 MLS/HR Midazolam HCl 100 ml @ 1 mls/hr Q24H IV 03/12/25 18:00 Enteral Nutritional Formula 1,000 ml 30ML/HR GT 03/12/25 19:00 Acetaminophen 650 mg Q4HP PRN PO 03/12/25 19:00 03/13/25 10:52 650 MG Furosemide 20 mg BIDD IV 03/13/25 18:00 Cancel Furosemide 20 mg BID IV 03/13/25 10:00 03/13/25 09:46 20 MG laboratory and microbiology Laboratory Tests 03/13/25 03:00 Test 03/13/25 03:00 Range/Units Serum Glucose 87 74-106 mg/dL Problem List DILATED/ ISCHEMIC CM EFrEF ACUTE DECOMPENSATION S/P DUAL CHAMBER AICD S/P PTCA STENT DIAGONAL HX OF AFIB ACUTE RESP ARREST HYPOCAPNIA COPD DIABETES HTN CKD STAGE II Assessment/Plan RESP STATUS IMPROVED BUT STILL APNEIC NEURO EXAM CONT SUPPORTIVE THERAPY DIURESIS DIG CORLANOR MONITOR k Dietary Evaluation Review Comments: Nutrition Plan Summary: Enteral Nutrition (EN): Patient is underweight with elevated glucose. Recommend Glucerna via tube feeding at 45 mL/hr. Provides: 65g protein 1296 kcal 869 mL free water over 24 hours Meets 116% of protein and 137% of energy needs Initiation: Start at 20 mL/hr, increase by 10 mL every 6 hours until goal rate is reached. Alternative Nutrition: Consider TPN per pharmacy if EN is not feasible. Reassessment Plan: After extubation, reassess. If patient passes DENTAL OFFICE ASSISTANT evaluation, advance to [facility] diet. Would you like this formatted for a progress note or consult report? Expected Outcomes/Goals: 1. being extubated and able to eat orally, 2. gradually healinf of sacral ulcer and gaining body weight. 3. overall improvement of health status. Plan discussed with: Patient Critical Care Time(min): 35 WILEY SALINAS MD Mar 13, 2025 14:45
[2025-03-13] MEDS: DIGOXIN (250MCG/ML) 2 ML AMPULE IV SCH (15:08)
[2025-03-13] MEDS: VANCOMYCIN 1.5GM/250ML 250 ML IV ONE (15:15)
[2025-03-13] MEDS ORDERED: FUROSEMIDE 20 MG/2 ML VIAL IV SCH (18:00)
[2025-03-13] MEDS: IVABRADINE 5 MG TAB GT SCH (21:52)
--- NOTE | 2025-03-13 23:22 | DVHPN2 ---
Subjective DOS: 03/13/2025 [facility] Patient seen and examined at bedside. Sedated, intubated on mechanical ventilator. Overnight events reviewed. Changes from previous H/P or p: No Changes Objective Vitals Vital Signs Date Time Temp Pulse Resp B/P (MAP) Pulse Ox O2 Delivery O2 Flow Rate FiO2 03/13/25 23:16 100.4 03/13/25 22:37 120 25 140/69 (92) 100 30 03/13/25 20:00 Mechanical Ventilator+ 03/13/25 08:00 0 Intake/Output Intake and Output 03/13/25 07:00 Intake Total 154.375 ml Output Total 800 ml Balance -645.625 ml IV Total 154.375 ml Output Urine Total 800 ml Exam Gen.: Patient lying in bed in medical ICU. Sedated, intubated on mechanical ventilator. Head: Normocephalic, atraumatic. Eyes: PERRLA. Ears: Normal external anatomy. Throat: Endotracheal tube and orogastric tube in place. Neck: Supple, trachea midline. Chest: Transmitted breath sounds bilaterally. Decreased air entry bilaterally. No wheezing. Bibasilar crackles. Cardiovascular: Positive S1, positive S2. Regular rate and rhythm. Abdomen: Positive bowel sounds in all 4 quadrants. Soft, nontender, nondistended. : Salas in place. Normal external genitalia. Rectal: Deferred. Skin: Warm, dry. Intact. Extremities: 2+ radial pulses bilaterally. No lower extremity edema. Neuro: Sedated. Medications Current Medications Medications Dose Ordered Sig/Long Route Start Time Stop Time Status Last Admin Dose Admin Fentanyl Citrate 250 ml @ 2.5 mls/hr Q24H IV 03/11/25 22:15 03/12/25 02:20 2.5 MLS/HR Vancomycin HCl 0 ml @ 0 mls/hr UD IV 03/11/25 23:30 Enoxaparin Sodium 40 mg DAILY SC 03/12/25 10:00 UNV Pantoprazole Sodium 40 mg DAILY IV 03/12/25 10:00 03/13/25 09:53 40 MG Enoxaparin Sodium 30 mg DAILY SC 03/12/25 10:00 03/13/25 09:45 30 MG Norepinephrine Bitartrate 250 ml @ 3.75 mls/hr Q24H IV 03/12/25 09:45 Albuterol 2.5 mg Q6H NEB 03/12/25 12:00 03/13/25 18:35 2.5 MG Amiodarone HCl 200 mg Q12HR GT 03/12/25 22:00 03/13/25 21:51 200 MG Clopidogrel Bisulfate 75 mg DAILY GT 03/13/25 10:00 03/13/25 09:46 75 MG Diagnostic Test (Pha) 1 strip Q6HR 03/12/25 12:00 03/13/25 23:16 1 STRIP Insulin Human Regular Q6HR SC 03/12/25 12:00 03/13/25 18:00 2 UNITS Dextrose 50 ml UD PRN IV 03/12/25 10:30 Cefepime HCl 50 ml @ 12.5 mls/hr DAILY IV 03/13/25 10:00 03/13/25 09:44 12.5 MLS/HR Midazolam HCl 100 ml @ 1 mls/hr Q24H IV 03/12/25 18:00 Enteral Nutritional Formula 1,000 ml 30ML/HR GT 03/12/25 19:00 Acetaminophen 650 mg Q4HP PRN PO 03/12/25 19:00 03/13/25 23:16 650 MG Furosemide 20 mg BIDD IV 03/13/25 18:00 Cancel Furosemide 20 mg BID IV 03/13/25 10:00 03/13/25 21:52 20 MG Digoxin 125 mcg Q48H IV 03/13/25 14:45 03/13/25 15:08 125 MCG Ivabradine 5 mg BID GT 03/13/25 22:00 03/13/25 21:52 5 MG Laboratory Results Laboratory Tests 03/13/25 03:00 Chemistry Test 03/13/25 03:00 Calcium Level 8.7 mg/dL (8.7-10.4) Magnesium Level 1.9 mg/dL (1.6-2.6) Urinalysis Test 03/12/25 14:04 Urine Color Light-yellow (Yellow) Urine Clarity Clear (Clear) Urine pH 5.0 (5.0-9.0) Urine Specific [place] 1.008 (1.001-1.035) Urine Protein Negative (Negative) Urine Ketones Negative (Negative) Urine Blood Negative /uL (Negative) Urine Nitrite Negative (Negative) Urine Bilirubin Negative (Negative) Urine Urobilinogen Normal mg/dL (Negative) Urine Leukocyte Esterase Negative /uL (Negative) Urine RBC None seen /hpf (0 - 4) Urine Microscopic WBC < 1 /HPF (0-5) Urine Squamous Epithelial Cells Few /hpf (<5) Urine Bacteria Few /hpf (None Seen) H Urine Mucus Few (None Seen) Urine Glucose 3+ mg/dL (Normal) H Blood Gas Results Test 03/13/25 07:25 Arterial Blood pH 7.333 (7.350-7.450) FiO2 % 30.0 Microbiology Microbiology Date/Time Source Procedure Growth Status 03/12/25 12:24 Blood Blood Culture - Preliminary NO GROWTH AFTER 24 HOURS OF INCUBATION. Resulted 03/12/25 02:30 Urine - [place] Urine Culture - Preliminary Resulted 03/12/25 01:45 Nose MRSA Screen - Final Complete 03/11/25 21:40 Sputum Gram Stain - Final Resulted 03/11/25 21:40 Sputum Respiratory Culture - Preliminary Resulted Assessment/Plan Assessment/Plan Impression: Acute on chronic hypoxic and hypercapnic respiratory failure On mechanical ventilator Acute metabolic encephalopathy Acute HFpEF Paroxysmal atrial fibrillation Pneumonia, Gram-positive versus negative Pulmonary hypertension Chronic obstructive pulmonary disease exacerbation Septic shock due to pneumonia, Gram-positive versus negative Plan: s/p intubation on mechanical ventilator. On AC mode; Respiratory rate 20, tidal volume 400, PEEP 5, FiO2 30% Titrate FIO2 to keep O2 saturation above 90%. VAP bundle. Daily ABG and CXR while intubated Sedate for ventilator synchrony Continue bronchodilators. Continue antibiotics. Follow up cultures. Follow up Cardiology recs Echocardiogram on 11/19/2024: Ejection fraction greater than 55%, left and right atrial enlargement Pressors for hemodynamic support Titrate to keep mean arterial pressure greater than 65 mmHg. Accu-Cheks, ISS Monitor hemoglobin Transfuse if less than 7.0 g/dL. Diurese with Lasix Monitor renal function Monitor electrolytes. Supplement as necessary. Monitor ins and outs. Electrolytes at goal. CPAP this PM with PS 12, PEEP of 5. Pulling volumes between 500-600 mL GI prophylaxis. DVT prophylaxis. Prognosis: Poor given patient's multiple co-morbidities. Condition: Critical Rest of plan per hospitalist and other consultants. A total of 35 minutes of critical care time was spent reviewing the patient record, examining the patient, making a diagnostic and therapeutic plan, discussing this plan with the medical personnel, following up on diagnostic studies and following the patient for clinical stability excluding any and all procedures. At least 50% of this time was spent in direct, [id number] contact. Thank you, , for allowing me to participate in this patient's care. Further recommendations will depend on the patient's clinical course. Please do not hesitate to contact me if you have any questions or concerns. This medical document was created using an electronic medical record system with [employer] dictation system. Although these documentations are being carefully reviewed, there may still be some phonetic and typographical changes. The errors are purely typographical, due to imperfection on the software program, and do not reflect any compromise in the patient's medical care. Plan discussed with: Other (BENSON Eason) Visit Coding Pulmonary Billing Provider: SNEHA KUMARI MD Date of Service if different f: Mar 13, 2025 Common Visit Codes: 79413-[id number] INP/OBS CARE(HIGH), 26701-[id number] CARE 30-74 MIN SNEHA KUMARI MD Mar 13, 2025 23:22
[2025-03-14] VITALS (93 sets, daily range): BP systolic 88–157; BP diastolic 42–109; PULSE 70–92; RESP 11–31; TEMP 98.4–100.4; O2SAT 90–100
[2025-03-14] MEDS: MAGNESIUM SULFATE 1GM/100ML 100 ML IV ONE (01:04)
[2025-03-14 02:58] LABS: Hematocrit 31.5 % (36.0-46.0); Hemoglobin 10.3 g/dL (12.2-16.2); Mean Corpuscular Hemoglobin 27.2 pg (28.0-32.0); Mean Corpuscular Volume 83.5 fL (80.0-100.0); Nucleated Red Blood Cells % 0.0 %
[2025-03-14 03:22] LABS: Chloride 99 mmol/L (98-107); Potassium 3.8 mmol/L (3.5-5.1)
[2025-03-14 03:23] LABS: Anion Gap 11 (5-15); Carbon Dioxide 26 mmol/L (20-31); Sodium 136 mmol/L (136-145)
[2025-03-14 03:28] LABS: Calcium 8.7 mg/dL (8.7-10.4); Glucose 95 mg/dL (74-106)
[2025-03-14 03:29] LABS: BUN/Creatinine Ratio 17.7 (10.0-20.0); Blood Urea Nitrogen 23 mg/dL (9-23); Magnesium 2.0 mg/dL (1.6-2.6)
--- NOTE | 2025-03-14 06:04 | DVH ---
CHEST RADIOGRAPH Indication: on vent Technique: Single frontal view of the chest was obtained COMPARISON: XY CHEST XRAY 1 VIEW on DOS: 03/13/25, XY CHEST XRAY 1 VIEW on DOS: 03/11/25, XY CHEST XR AY 1 VIEW on DOS: 03/11/25, XY CHEST PORTABLE on DOS: 05/30/24, XY CHEST PORTABLE on DOS: 05/27/24 FINDINGS: Lines and Tubes: Slight interval advancement of the endotracheal tube such that the tip now projects approximately 2.6 cm above the level of the brii. Enteric catheter unchanged. Left anterior chest w all dual lead cardiac pacing device. Lungs: Clear Pleura: No effusion. No pneumothorax. Cardiomediastinal contours: Unremarkable Bones: Unremarkable IMPRESSION: 1. Interval advancement of the endotracheal tube such that the tip now projects approximately 2.6 cm above the level of the brii. 2. Enteric catheter unchanged. 3. No evidence of acute cardiopulmonary process.
[2025-03-14 09:28] LABS: Base Excess 1.2 mmol/L (-2.0-3.0)
[2025-03-14 11:30] LABS: Base Excess 1.7 mmol/L (-2.0-3.0)
--- NOTE | 2025-03-14 14:47 | DVHPNRES ---
Progress Note Date Seen: Mar 14, 2025 Resident Creating Document: MARIELY PORTER RESIDENT Medical Necessity Reason Pt with a Central, PICC or Fol: Yes The following are medically ne: Salas Catheter Subjective Review of Systems Patient is 54-year-old female who brought to the hospital with a chief complaint of shortness of breath. During initial evaluation in emergency department, patient found to have low oxygen saturation at 33% on room air, initially put on BiPAP, L to protect the airway patient was intubated on 03/11/2025. Past medical history: Pulmonary artery hypertension, HFrEF, Chronic obstructive pulmonary disease, sick sinus syndrome status post pacemaker, atrial fibrillation, diabetes mellitus, lipids, hypertension Past surgical history: Take care bilateral tubal ligation Personal history: Smoker, no history of alcohol or drug use. 03/12/2025: Patient seen in ICU. Intubated and sedated. On minimal vasopressor requirement. Receiving antibiotics. No any other night events. 03/13/2025: Patient seen in ICU. Intubated and sedated. Urine output at least 750 mL in last 24 hour. Off vasopressor. No any night event. Plan for sedation vacation with breathing exercise with CPAP. : Patient seen at bedside, patient is extubated today and is tolerating well, off pressors, no overnight events reported, patient is A&O x4 and is following commands. Patient passed the swallow eval and is placed on pureed Diet. Objective vital signs Vital Sign Date Time Temp Pulse Resp B/P (MAP) Pulse Ox O2 Delivery O2 Flow Rate FiO2 03/14/25 14:15 100.0 81 16 131/57 (81) 96 212.0 03/14/25 13:58 Mechanical Ventilator+ 30 30 03/14/25 12:35 8.0 Total Intake and Output 03/13/25 03/13/25 03/14/25 15:00 23:00 07:00 Intake Total 52.5 ml 360.834 ml 2.5 ml Output Total 430 ml 750 ml Balance 52.5 ml -69.166 ml -747.5 ml medications Current Medications Medications Dose Ordered Sig/Long Route Start Time Stop Time Status Last Admin Dose Admin Fentanyl Citrate 250 ml @ 2.5 mls/hr Q24H IV 03/11/25 22:15 03/12/25 02:20 2.5 MLS/HR Vancomycin HCl 0 ml @ 0 mls/hr UD IV 03/11/25 23:30 Enoxaparin Sodium 40 mg DAILY SC 03/12/25 10:00 UNV Pantoprazole Sodium 40 mg DAILY IV 03/12/25 10:00 03/14/25 08:45 40 MG Enoxaparin Sodium 30 mg DAILY SC 03/12/25 10:00 03/14/25 08:46 30 MG Norepinephrine Bitartrate 250 ml @ 3.75 mls/hr Q24H IV 03/12/25 09:45 Albuterol 2.5 mg Q6H NEB 03/12/25 12:00 03/14/25 11:51 2.5 MG Amiodarone HCl 200 mg Q12HR GT 03/12/25 22:00 03/14/25 08:45 200 MG Clopidogrel Bisulfate 75 mg DAILY GT 03/13/25 10:00 03/14/25 08:45 75 MG Diagnostic Test (Pha) 1 strip Q6HR 03/12/25 12:00 03/14/25 13:07 1 STRIP Insulin Human Regular Q6HR SC 03/12/25 12:00 03/13/25 18:00 2 UNITS Dextrose 50 ml UD PRN IV 03/12/25 10:30 Cefepime HCl 50 ml @ 12.5 mls/hr DAILY IV 03/13/25 10:00 03/14/25 08:46 12.5 MLS/HR Midazolam HCl 100 ml @ 1 mls/hr Q24H IV 03/12/25 18:00 Enteral Nutritional Formula 1,000 ml 30ML/HR GT 03/12/25 19:00 Acetaminophen 650 mg Q4HP PRN PO 03/12/25 19:00 03/14/25 10:32 650 MG Furosemide 20 mg BIDD IV 03/13/25 18:00 Cancel Furosemide 20 mg BID IV 03/13/25 10:00 03/14/25 08:45 20 MG Digoxin 125 mcg Q48H IV 03/13/25 14:45 03/13/25 15:08 125 MCG Ivabradine 5 mg BID GT 03/13/25 22:00 03/14/25 08:46 5 MG Examination Patient lying in bed General: Patient alert and oriented in person, place and time. Patient following commands. Extubated today HEENT: Normocephalic, atraumatic, moist mucous membranes Respiratory/pulmonary: Clear lungs bilaterally, vesicular murmurs present in almost all lung hoskins, no associated crackles or wheezes. Cardiovascular: Normal heart sounds S1 and S2 with no associated murmurs Abdomen: Abdomen nondistended, there is no pain to palpation in any of the abdominal quadrants, no palpable masses. Extremities: There is no peripheral edema present at the lower extremities. Peripheral Pulses: 3+ Radial (R). 3+ Radial (L). 3+ Dorsalis pedis (R). 3+ Dorsalis pedis(L) Skin: No rashes or pruritus, there is no sacral edema present at this time. Neurological: Intact cranial nerves with no focal neurologic deficits laboratory and microbiology Laboratory Tests 03/14/25 02:09 Test 03/14/25 02:09 Range/Units Serum Glucose 95 74-106 mg/dL Microbiology Date/Time Source Procedure Growth Status 03/12/25 12:24 Blood Blood Culture - Preliminary NO GROWTH AFTER 48 HOURS OF INCUBATION. Resulted 03/12/25 02:30 Urine - [place] Urine Culture - Preliminary Resulted 03/12/25 01:45 Nose MRSA Screen - Final Complete 03/11/25 21:40 Sputum Gram Stain - Final Resulted 03/11/25 21:40 Sputum Respiratory Culture - Preliminary Resulted Problem List/Assessment/Plan Problem List/Assessment/Plan Neurology Acute metabolic encephalopathy -continue management of heart failure and septic shock Cardiology Acute HFpEF Paroxysmal atrial fibrillation History of hypertension -IV Lasix 20 mg BID -continue to monitor electrolytes: Magnesium, potassium. -echocardiogram on 11/19/2024: Ejection fraction greater than 55%, left and right atrial enlargement -amiodarone 200 mg q.12. Patient used to take Eliquis before, given history of bleeding. Patient is only on Plavix. -Plavix 75 mg daily -cardiology consultation -strict I&O -BNP: 1093 -Ivabrandine and digoxin by clinical coordinator Respiratory Acute on chronic hypoxic and hypercapnic respiratory failure -ventilation: Respiratory rate 20, tidal volume 400, FiO2 35%, peep five. -IV antibiotic with cefepime and vancomycin -pancultures -respiratory cultures growing young colonies -albuterol 2.5 mg nebulization q.6 -mrsa Negative -extubated today(03/14/) Pneumonia Gram-positive versus negative -see the management of respiratory failure Pulmonary hypertension -avoid any antihypertensive medication Chronic obstructive pulmonary disease exacerbation -continue management of respiratory failure Infection Septic shock due to pneumonia Gram-positive versus negative -IV antibiotic with cefepime and vancomycin -IV vasopressor with Levophed if needed. Off pressors today -maintain map greater than 65 -respiratory culture growing young colonies -urinalysis no signs of active UTI. Hematology Normocytic, normochromic anemia -hemoglobin 11.3 -continue to monitor. -iron panel Endocrine Diabetes mellitus type 2 HGB A1c 6% on 03/12/2025 Dyslipidemia -Insulin sliding scale Lines: 2 peripheral IV lines Salas catheter Extubated on 03/14/2025 PUD prophylaxis with Protonix DVT prophylaxis with Lovenox Critical care time spent greater than 84 minute. Plan discussed with Dr. Hidalgo D/w Dr Porter. See my separate progress note for further details. Plan discussed with: Patient My Orders My Orders Orders - MARIELY PORTER Procedure Category Date Status Time Cpap/Sed Vacation Med ORDERS 03/14/25 Transmitted Weaning 09:36 Cardiac DIET 03/14/25 Transmitted Diet-2gna,Lofat,Lochol Dinner Dietary Evaluation Review Comments: Nutrition Plan Summary: Enteral Nutrition (EN): Patient is underweight with elevated glucose. Recommend Glucerna via tube feeding at 45 mL/hr. Provides: 65g protein 1296 kcal 869 mL free water over 24 hours Meets 116% of protein and 137% of energy needs Initiation: Start at 20 mL/hr, increase by 10 mL every 6 hours until goal rate is reached. Alternative Nutrition: Consider TPN per pharmacy if EN is not feasible. Reassessment Plan: After extubation, reassess. If patient passes ACADEMIC SPECIALIST evaluation, [facility]. Would you like this formatted for a progress note or consult report? Expected Outcomes/Goals: 1. being extubated and able to eat orally, 2. gradually healinf of sacral ulcer and gaining body weight. 3. overall improvement of health status. MARIELY PORTER Mar 14, 2025 14:47 SNEHA HIDALGO MD Mar 18, 2025 13:20
--- NOTE | 2025-03-14 15:46 | DVH ---
CHEST RADIOGRAPH Indication: Status post extubation Technique: XY CHEST XRAY 1 VIEW Comparison: None FINDINGS: Left chest dual lead cardiac pacing device The cardiac silhouette is unremarkable. The lungs demonstrate bilateral interstitial airspace opaciti es. Left basilar airspace opacities. The pulmonary vasculature is unremarkable. There is no pleural e ffusion. There is no pneumothorax. Aortic atherosclerotic disease. IMPRESSION: Interstitial airspace opacities which could represent sequela of pulmonary edema, atypical infection, chronic lung changes/disease. Left basilar airspace opacities
--- NOTE | 2025-03-14 21:14 | DVHPN2 ---
Subjective DOS: 03/14/2025 [facility] Patient seen and examined at bedside. Intubated on mechanical ventilator. Overnight events reviewed. Changes from previous H/P or p: No Changes Objective Vitals Vital Signs Date Time Temp Pulse Resp B/P (MAP) Pulse Ox O2 Delivery O2 Flow Rate FiO2 03/14/25 20:45 99.3 80 15 108/54 (72) 96 210.7 03/14/25 20:00 Nasal Cannula* 3 32 Intake/Output Intake and Output 03/14/25 07:00 Intake Total 415.834 ml Output Total 1180 ml Balance -764.166 ml IV Total 415.834 ml Output Urine Total 1180 ml Exam Gen.: Patient lying in bed in medical ICU. Intubated on mechanical ventilator. Head: Normocephalic, atraumatic. Eyes: PERRLA. Ears: Normal external anatomy. Throat: Endotracheal tube and orogastric tube in place. Neck: Supple, trachea midline. Chest: Transmitted breath sounds bilaterally. Decreased air entry bilaterally. No wheezing. Bibasilar crackles. Cardiovascular: Positive S1, positive S2. Regular rate and rhythm. Abdomen: Positive bowel sounds in all 4 quadrants. Soft, nontender, nondistended. : Salas in place. Normal external genitalia. Rectal: Deferred. Skin: Warm, dry. Intact. Extremities: 2+ radial pulses bilaterally. No lower extremity edema. Neuro: Off sedation Medications Current Medications Medications Dose Ordered Sig/Long Route Start Time Stop Time Status Last Admin Dose Admin Fentanyl Citrate 250 ml @ 2.5 mls/hr Q24H IV 03/11/25 22:15 03/12/25 02:20 2.5 MLS/HR Vancomycin HCl 0 ml @ 0 mls/hr UD IV 03/11/25 23:30 Enoxaparin Sodium 40 mg DAILY SC 03/12/25 10:00 UNV Pantoprazole Sodium 40 mg DAILY IV 03/12/25 10:00 03/14/25 08:45 40 MG Enoxaparin Sodium 30 mg DAILY SC 03/12/25 10:00 03/14/25 08:46 30 MG Norepinephrine Bitartrate 250 ml @ 3.75 mls/hr Q24H IV 03/12/25 09:45 Albuterol 2.5 mg Q6H NEB 03/12/25 12:00 03/14/25 18:51 2.5 MG Amiodarone HCl 200 mg Q12HR GT 03/12/25 22:00 03/14/25 08:45 200 MG Clopidogrel Bisulfate 75 mg DAILY GT 03/13/25 10:00 03/14/25 08:45 75 MG Diagnostic Test (Pha) 1 strip Q6HR 03/12/25 12:00 03/14/25 17:26 1 STRIP Insulin Human Regular Q6HR SC 03/12/25 12:00 03/14/25 17:29 3 UNITS Dextrose 50 ml UD PRN IV 03/12/25 10:30 Cefepime HCl 50 ml @ 12.5 mls/hr DAILY IV 03/13/25 10:00 03/14/25 08:46 12.5 MLS/HR Midazolam HCl 100 ml @ 1 mls/hr Q24H IV 03/12/25 18:00 Enteral Nutritional Formula 1,000 ml 30ML/HR GT 03/12/25 19:00 Acetaminophen 650 mg Q4HP PRN PO 03/12/25 19:00 03/14/25 10:32 650 MG Furosemide 20 mg BIDD IV 03/13/25 18:00 Cancel Furosemide 20 mg BID IV 03/13/25 10:00 03/14/25 08:45 20 MG Digoxin 125 mcg Q48H IV 03/13/25 14:45 03/13/25 15:08 125 MCG Ivabradine 5 mg BID GT 03/13/25 22:00 03/14/25 08:46 5 MG Laboratory Results Laboratory Tests 03/14/25 02:09 Chemistry Test 03/14/25 02:09 Calcium Level 8.7 mg/dL (8.7-10.4) Magnesium Level 2.0 mg/dL (1.6-2.6) Urinalysis Test 03/12/25 14:04 Urine Color Light-yellow (Yellow) Urine Clarity Clear (Clear) Urine pH 5.0 (5.0-9.0) Urine Specific [place] 1.008 (1.001-1.035) Urine Protein Negative (Negative) Urine Ketones Negative (Negative) Urine Blood Negative /uL (Negative) Urine Nitrite Negative (Negative) Urine Bilirubin Negative (Negative) Urine Urobilinogen Normal mg/dL (Negative) Urine Leukocyte Esterase Negative /uL (Negative) Urine RBC None seen /hpf (0 - 4) Urine Microscopic WBC < 1 /HPF (0-5) Urine Squamous Epithelial Cells Few /hpf (<5) Urine Bacteria Few /hpf (None Seen) H Urine Mucus Few (None Seen) Urine Glucose 3+ mg/dL (Normal) H Blood Gas Results Test 03/14/25 07:47 03/14/25 11:23 Arterial Blood pH 7.472 (7.350-7.450) 7.494 (7.350-7.450) FiO2 % 30.0 30.0 Microbiology Microbiology Date/Time Source Procedure Growth Status 03/12/25 12:24 Blood Blood Culture - Preliminary NO GROWTH AFTER 48 HOURS OF INCUBATION. Resulted 03/12/25 02:30 Urine - [place] Urine Culture - Final Complete 03/12/25 01:45 Nose MRSA Screen - Final Complete 03/11/25 21:40 Sputum Gram Stain - Final Resulted 03/11/25 21:40 Sputum Respiratory Culture - Preliminary Resulted Assessment/Plan Assessment/Plan Impression: Acute on chronic hypoxic and hypercapnic respiratory failure On mechanical ventilator Acute metabolic encephalopathy Acute HFpEF Paroxysmal atrial fibrillation Pneumonia, Gram-positive versus negative Pulmonary hypertension Chronic obstructive pulmonary disease exacerbation Septic shock due to pneumonia, Gram-positive versus negative Events: Patient on CPAP this AM. Tolerated CPAP. ABG reviewed, compensated. Weaning parameters acceptable. Plan for extubation. Minimal leak. Will give Decadron 6 mg IVP x1. Labs and imaging reviewed. Rest of plan as noted below. Plan: s/p intubation on mechanical ventilator. On AC mode; Respiratory rate 20, tidal volume 400, PEEP 5, FiO2 30% Titrate FIO2 to keep O2 saturation above 90%. VAP bundle. Daily ABG and CXR while intubated Continue bronchodilators. Continue antibiotics. Follow up cultures. Follow up Cardiology recs Echocardiogram on 11/19/2024: Ejection fraction greater than 55%, left and right atrial enlargement Pressors for hemodynamic support Titrate to keep mean arterial pressure greater than 65 mmHg. Accu-Cheks, ISS Monitor hemoglobin Transfuse if less than 7.0 g/dL. Diurese with Lasix Monitor renal function Monitor electrolytes. Supplement as necessary. Monitor ins and outs. Electrolytes at goal. GI prophylaxis. DVT prophylaxis. Prognosis: Poor given patient's multiple co-morbidities. Condition: Critical Rest of plan per hospitalist and other consultants. A total of 35 minutes of critical care time was spent reviewing the patient record, examining the patient, making a diagnostic and therapeutic plan, discussing this plan with the medical personnel, following up on diagnostic studies and following the patient for clinical stability excluding any and all procedures. At least 50% of this time was spent in direct, [id number] contact. Thank you, , for allowing me to participate in this patient's care. Further recommendations will depend on the patient's clinical course. Please do not hesitate to contact me if you have any questions or concerns. This medical document was created using an electronic medical record system with [employer] dictation system. Although these documentations are being carefully reviewed, there may still be some phonetic and typographical changes. The errors are purely typographical, due to imperfection on the software program, and do not reflect any compromise in the patient's medical care. Plan discussed with: Other (BENSON Michael) My Orders Orders - SNEHA KUMARI MD Procedure Category Date Status Time Extubate [facility] 03/14/25 In Process 12:35 Visit Coding Pulmonary Billing Provider: SNEHA KUMARI MD Date of Service if different f: Mar 14, 2025 Common Visit Codes: 55193-PQTWALTVOT INP/OBS CARE(HIGH), 60583-EJUBCLJA CARE 30-74 MIN SNEHA KUMARI MD Mar 14, 2025 21:14
[2025-03-15] VITALS (53 sets, daily range): BP systolic 105–149; BP diastolic 52–70; PULSE 69–96; RESP 11–24; TEMP 97.7–99.1; O2SAT 90–100
[2025-03-15 03:37] LABS: Hematocrit 29.4 % (36.0-46.0); Hemoglobin 9.9 g/dL (12.2-16.2); Mean Corpuscular Hemoglobin 27.5 pg (28.0-32.0); Mean Corpuscular Volume 82.2 fL (80.0-100.0); Nucleated Red Blood Cells % 0.0 %
[2025-03-15 03:57] LABS: Alanine Aminotransferase 34 U/L (7-40); Albumin 3.5 g/dL (3.2-4.8); Alkaline Phosphatase 78 U/L (46-116); Anion Gap 11 (5-15); BUN/Creatinine Ratio 19.2 (10.0-20.0); Bilirubin, Total 0.4 mg/dL (0.2-1.0); Calcium 8.9 mg/dL (8.7-10.4); Carbon Dioxide 29 mmol/L (20-31); Magnesium 1.9 mg/dL (1.6-2.6); Sodium 137 mmol/L (136-145); Total Protein 6.0 g/dL (5.7-8.2)
[2025-03-15 03:58] LABS: Blood Urea Nitrogen 23 mg/dL (9-23); Chloride 97 mmol/L (98-107); Glucose 203 mg/dL (74-106); Potassium 3.2 mmol/L (3.5-5.1)
[2025-03-15] MEDS: POTASSIUM EFFERVESENT TAB 25 MEQ PO ONE (05:50)
--- NOTE | 2025-03-15 10:05 | ECG ---
[facility] Test Date: 2025-03-13 Test Time: 22:46:42 Pat Name: FLORENTINO PATRICK Department: ICU Room: 0282T Gender: F Student Finance Specialist: BENSON : 1940 Requested By: NICOLLE PONCE Order Number: [id number] Reading MD: Constantino Huggins Measurements Intervals [place] Rate: 110 P: 0 [place]: 0 QRS: -90 QRSD: 171 T: 123 QT: 377 QTc: 511 Interpretive Statements Atrial fibrillation Nonspecific IVCD with LAD LVH with secondary repolarization abnormality Anterior Q waves, possibly due to LVH Baseline wander in lead(s) V3 Electronically Signed On 03-16-2025 15:29:18 PDT by Constantino Huggins Please click the below link to view image of tracing.
[2025-03-15] MEDS ORDERED: VANCOMYCIN 500mg/100mL 100 ML IV ONE (15:00)
--- NOTE | 2025-03-15 20:13 | DVHPNRES ---
Progress Note Date Seen: Mar 15, 2025 Resident Creating Document: LAURO EASON RESIDENT Medical Necessity Reason Pt with a Central, PICC or Fol: Yes The following are medically ne: Salas Catheter Subjective Review of Systems Patient is 54-year-old female who brought to the hospital with a chief complaint of shortness of breath. During initial evaluation in emergency department, patient found to have low oxygen saturation at 33% on room air, initially put on BiPAP, L to protect the airway patient was intubated on 03/11/2025. Past medical history: Pulmonary artery hypertension, HFrEF, Chronic obstructive pulmonary disease, sick sinus syndrome status post pacemaker, atrial fibrillation, diabetes mellitus, lipids, hypertension Past surgical history: Take care bilateral tubal ligation Personal history: Smoker, no history of alcohol or drug use. 03/12/2025: Patient seen in ICU. Intubated and sedated. On minimal vasopressor requirement. Receiving antibiotics. No any other night events. 03/13/2025: Patient seen in ICU. Intubated and sedated. Urine output at least 750 mL in last 24 hour. Off vasopressor. No any night event. Plan for sedation vacation with breathing exercise with CPAP 03/14/2025: patient seen in ICU. downgraded to telemetry. swallow eval passed Objective vital signs Vital Sign Date Time Temp Pulse Resp B/P (MAP) Pulse Ox O2 Delivery O2 Flow Rate FiO2 03/15/25 18:56 70 14 99 03/15/25 18:46 Nasal Cannula 2.0 03/15/25 18:46 28 03/15/25 17:00 98.7 119/59 (79) 98.7 Total Intake and Output 03/14/25 03/14/25 03/15/25 15:00 23:00 07:00 Output Total 1250 ml 1380 ml Balance -1250 ml -1380 ml medications Current Medications Medications Dose Ordered Sig/Long Route Start Time Stop Time Status Last Admin Dose Admin Fentanyl Citrate 250 ml @ 2.5 mls/hr Q24H IV 03/11/25 22:15 03/12/25 02:20 2.5 MLS/HR Enoxaparin Sodium 40 mg DAILY SC 03/12/25 10:00 UNV Enoxaparin Sodium 30 mg DAILY SC 03/12/25 10:00 03/15/25 08:18 30 MG Norepinephrine Bitartrate 250 ml @ 3.75 mls/hr Q24H IV 03/12/25 09:45 Albuterol 2.5 mg Q6H NEB 03/12/25 12:00 03/15/25 18:46 2.5 MG Amiodarone HCl 200 mg Q12HR GT 03/12/25 22:00 03/15/25 08:16 200 MG Clopidogrel Bisulfate 75 mg DAILY GT 03/13/25 10:00 03/15/25 08:17 75 MG Diagnostic Test (Pha) 1 strip Q6HR 03/12/25 12:00 03/15/25 17:56 1 STRIP Insulin Human Regular Q6HR SC 03/12/25 12:00 03/15/25 18:15 3 UNITS Dextrose 50 ml UD PRN IV 03/12/25 10:30 Cefepime HCl 50 ml @ 12.5 mls/hr DAILY IV 03/13/25 10:00 03/15/25 08:18 12.5 MLS/HR Midazolam HCl 100 ml @ 1 mls/hr Q24H IV 03/12/25 18:00 Enteral Nutritional Formula 1,000 ml 30ML/HR GT 03/12/25 19:00 Acetaminophen 650 mg Q4HP PRN PO 03/12/25 19:00 03/14/25 10:32 650 MG Furosemide 20 mg BIDD IV 03/13/25 18:00 Cancel Furosemide 20 mg BID IV 03/13/25 10:00 03/15/25 08:17 20 MG Ivabradine 5 mg BID GT 03/13/25 22:00 03/15/25 08:17 5 MG Digoxin 0.125 mg DAILY PO 03/16/25 10:00 Pantoprazole Sodium 40 mg DAILY@0600 PO 03/16/25 06:00 Examination General Appearance: Sedated, intubated. Head Exam: Normal inspection Neck Exam: Normal inspection. Non-tender. Normal alignment Pulmonary/Respiratory: Chest non-tender. Crackles over right lower lung base. Cardiovascular/Chest: Regular rate and rhythm. No murmurs. No JVD. Peripheral Pulses: 2+ Radial (R). 2+ Radial (L). 2+ Pedal (R). 2+ Pedal (L) Abdominal Exam: Normal bowel sounds. Soft. Nontender. No hepatospenomegaly. No masses Ankle Exam: Negative ankle edema Lower extremities: Negative lower extremity edema Neuro/Mental Status: Sedated. Pinpoint pupils. Cough and gag reflex present. Thoughts/Psych: Sedated laboratory and microbiology Laboratory Tests 03/15/25 02:50 Test 03/15/25 02:50 Range/Units Serum Glucose 203 H 74-106 mg/dL Microbiology Date/Time Source Procedure Growth Status 03/12/25 12:24 Blood Blood Culture - Preliminary NO GROWTH AFTER 72 HOURS OF INCUBATION. Resulted 03/12/25 02:30 Urine - [place] Urine Culture - Final Complete 03/12/25 01:45 Nose MRSA Screen - Final Complete 03/11/25 21:40 Sputum Gram Stain - Final Resulted 03/11/25 21:40 Sputum Respiratory Culture - Preliminary Resulted Problem List/Assessment/Plan Problem List/Assessment/Plan Neurology Acute metabolic encephalopathy - Stable -extubated Cardiology Acute HFpEF Paroxysmal atrial fibrillation History of hypertension -IV Lasix 20 mg BID -continue to monitor electrolytes: Magnesium, potassium. -echocardiogram on 11/19/2024: Ejection fraction greater than 55%, left and right atrial enlargement -amiodarone 200 mg q.12. Patient used to take Eliquis before, given history of bleeding. Patient is only on Plavix. -Plavix 75 mg daily -cardiology consultation -strict I&O -BNP: 1093 -Ivabrandine and digoxin by outcome analyst Respiratory Acute on chronic hypoxic and hypercapnic respiratory failure -ventilation: Respiratory rate 20, tidal volume 400, FiO2 35%, peep five. -IV antibiotic with cefepime -pancultures -respiratory cultures growing young colonies -albuterol 2.5 mg nebulization q.6 -mrsa Negative Pneumonia Gram-positive versus negative -see the management of respiratory failure Pulmonary hypertension -avoid any antihypertensive medication Chronic obstructive pulmonary disease exacerbation -continue management of respiratory failure Infection Septic shock due to pneumonia Gram-positive versus negative -IV antibiotic with cefepime -maintain map greater than 65 -respiratory culture growing young colonies -urinalysis no signs of active UTI. Hematology Normocytic, normochromic anemia -hemoglobin 11.3 -continue to monitor. -iron panel Endocrine Diabetes mellitus type 2 HGB A1c 6% on 03/12/2025 Dyslipidemia -Insulin sliding scale Lines: 2 peripheral IV lines Salas catheter Extubated on 03/14/2025 PUD prophylaxis with Protonix DVT prophylaxis with Lovenox downgraded to telemetry. Critical care time spent greater than 84 minute. Plan discussed with Dr. Hidalgo I have reviewed the above and agree with the findings, and management plan of Dr Eason. Plan discussed with: Patient, Other (RN) My Orders My Orders Orders - LAURO EASON RESIDENT Procedure Category Date Status Time Digoxin Tablet PHA 03/16/25 In Process (Lanoxin Tablet) 10:00 Pantoprazole Tablet PHA 03/16/25 In Process (Protonix Tablet) 06:00 Transfer Orders XFER 03/15/25 Transmitted 12:15 Dietary Evaluation Review Comments: Nutrition Plan Summary: Enteral Nutrition (EN): Patient is underweight with elevated glucose. Recommend Glucerna via tube feeding at 45 mL/hr. Provides: 65g protein 1296 kcal 869 mL free water over 24 hours Meets 116% of protein and 137% of energy needs Initiation: Start at 20 mL/hr, increase by 10 mL every 6 hours until goal rate is reached. Alternative Nutrition: Consider TPN per pharmacy if EN is not feasible. Reassessment Plan: After extubation, reassess. If patient passes SENIOR BENEFITS SPECIALIST evaluation, [facility]. Would you like this formatted for a progress note or consult report? Expected Outcomes/Goals: 1. being extubated and able to eat orally, 2. gradually healinf of sacral ulcer and gaining body weight. 3. overall improvement of health status. LAURO EASON RESIDENT Mar 15, 2025 20:13 SNEHA HIDALGO MD Mar 18, 2025 13:19
--- NOTE | 2025-03-15 22:34 | DVHPN2 ---
Subjective DOS: 03/15/2025 [facility] Patient seen and examined at bedside. S/p extubation, on supplemental oxygen Overnight events reviewed. Changes from previous H/P or p: Changes Objective Vitals Vital Signs Date Time Temp Pulse Resp B/P (MAP) Pulse Ox O2 Delivery O2 Flow Rate FiO2 03/15/25 21:52 114/68 03/15/25 21:00 97.9 82 16 95 97.9 03/15/25 20:00 Nasal Cannula* 3 32 Intake/Output Intake and Output 03/15/25 07:00 Output Total 2630 ml Balance -2630 ml Output Urine Total 2630 ml Exam Gen.: Patient lying in bed in no apparent distress. On supplemental oxygen. Head: Normocephalic, atraumatic. Eyes: EOMI/PERRLA. Ears: Normal hearing. Normal anatomy. Neck/trachea: Trachea midline, supple. Nose: Normal external anatomy. Mouth: Moist mucous membranes. Chest: Decreased air entry bilaterally. No wheezing or rhonchi. Cardiovascular: Positive S1, positive S2. Regular rate and rhythm. Abdomen: Positive bowel sounds in all 4 quadrants. Soft, non-tender, non- distended. : Deferred. Rectal: Deferred. Skin: Warm, dry. Intact. Extremities: 2+ radial pulses bilaterally. No lower extremity edema. Neuro: Awake, alert, oriented x3. No gross motor or sensory deficits. Cranial nerves II through XII intact. Gait not assessed. Medications Current Medications Medications Dose Ordered Sig/Long Route Start Time Stop Time Status Last Admin Dose Admin Fentanyl Citrate 250 ml @ 2.5 mls/hr Q24H IV 03/11/25 22:15 03/12/25 02:20 2.5 MLS/HR Enoxaparin Sodium 40 mg DAILY SC 03/12/25 10:00 UNV Enoxaparin Sodium 30 mg DAILY SC 03/12/25 10:00 03/15/25 08:18 30 MG Norepinephrine Bitartrate 250 ml @ 3.75 mls/hr Q24H IV 03/12/25 09:45 Albuterol 2.5 mg Q6H NEB 03/12/25 12:00 03/15/25 18:46 2.5 MG Amiodarone HCl 200 mg Q12HR GT 03/12/25 22:00 03/15/25 21:52 200 MG Clopidogrel Bisulfate 75 mg DAILY GT 03/13/25 10:00 03/15/25 08:17 75 MG Diagnostic Test (Pha) 1 strip Q6HR 03/12/25 12:00 03/15/25 17:56 1 STRIP Insulin Human Regular Q6HR SC 03/12/25 12:00 03/15/25 18:15 3 UNITS Dextrose 50 ml UD PRN IV 03/12/25 10:30 Cefepime HCl 50 ml @ 12.5 mls/hr DAILY IV 03/13/25 10:00 03/15/25 08:18 12.5 MLS/HR Midazolam HCl 100 ml @ 1 mls/hr Q24H IV 03/12/25 18:00 Enteral Nutritional Formula 1,000 ml 30ML/HR GT 03/12/25 19:00 Acetaminophen 650 mg Q4HP PRN PO 03/12/25 19:00 03/14/25 10:32 650 MG Furosemide 20 mg BIDD IV 03/13/25 18:00 Cancel Furosemide 20 mg BID IV 03/13/25 10:00 03/15/25 21:52 20 MG Ivabradine 5 mg BID GT 03/13/25 22:00 03/15/25 08:17 5 MG Digoxin 0.125 mg DAILY PO 03/16/25 10:00 Pantoprazole Sodium 40 mg DAILY@0600 PO 03/16/25 06:00 Laboratory Results Laboratory Tests 03/15/25 02:50 Chemistry Test 03/15/25 02:50 Albumin 3.5 g/dL (3.2-4.8) Calcium Level 8.9 mg/dL (8.7-10.4) Magnesium Level 1.9 mg/dL (1.6-2.6) Phosphorus Level 2.7 mg/dL (2.4-5.1) Total Protein 6.0 g/dL (5.7-8.2) LFT Test 03/15/25 02:50 Alanine Aminotransferase (ALT) 34 U/L (7-40) Alkaline Phosphatase 78 U/L (46-116) Aspartate Amino Transferase (AST) 30 U/L (13-40) Total Bilirubin 0.4 mg/dL (0.2-1.0) Urinalysis Test 03/12/25 14:04 Urine Color Light-yellow (Yellow) Urine Clarity Clear (Clear) Urine pH 5.0 (5.0-9.0) Urine Specific [place] 1.008 (1.001-1.035) Urine Protein Negative (Negative) Urine Ketones Negative (Negative) Urine Blood Negative /uL (Negative) Urine Nitrite Negative (Negative) Urine Bilirubin Negative (Negative) Urine Urobilinogen Normal mg/dL (Negative) Urine Leukocyte Esterase Negative /uL (Negative) Urine RBC None seen /hpf (0 - 4) Urine Microscopic WBC < 1 /HPF (0-5) Urine Squamous Epithelial Cells Few /hpf (<5) Urine Bacteria Few /hpf (None Seen) H Urine Mucus Few (None Seen) Urine Glucose 3+ mg/dL (Normal) H Microbiology Microbiology Date/Time Source Procedure Growth Status 03/12/25 12:24 Blood Blood Culture - Preliminary NO GROWTH AFTER 72 HOURS OF INCUBATION. Resulted 03/12/25 02:30 Urine - [place] Urine Culture - Final Complete 03/12/25 01:45 Nose MRSA Screen - Final Complete 03/11/25 21:40 Sputum Gram Stain - Final Resulted 03/11/25 21:40 Sputum Respiratory Culture - Preliminary Resulted Assessment/Plan Assessment/Plan Impression: Acute on chronic hypoxic and hypercapnic respiratory failure Acute metabolic encephalopathy Acute HFpEF Paroxysmal atrial fibrillation Pneumonia, Gram-positive versus negative Pulmonary hypertension Chronic obstructive pulmonary disease exacerbation Septic shock due to pneumonia, Gram-positive versus negative Events: Patient underwent uneventful extubation yesterday. Currently on supplemental oxygen at 3 LPM NC Taper O2 as tolerated Continue bronchodilators. Continue antibiotics Continue steroids Incentive spirometry Physical Therapy evaluation. Patient is stable for downgrade from the pulmonary standpoint. Labs and imaging reviewed. Rest of plan as noted below. Plan: S/p extubation On supplemental oxygen Titrate to keep O2 sats above 92%. Continue bronchodilators. Continue antibiotics. Follow up cultures. Follow up Cardiology recs Echocardiogram on 11/19/2024: Ejection fraction greater than 55%, left and right atrial enlargement Accu-Cheks, ISS Monitor hemoglobin Transfuse if less than 7.0 g/dL. Diurese with Lasix Monitor renal function Monitor electrolytes. Supplement as necessary. Monitor ins and outs. Electrolytes at goal. GI prophylaxis. DVT prophylaxis. Prognosis: Guarded given patient's multiple co-morbidities. Rest of plan per hospitalist and other consultants. Thank you, , for allowing me to participate in this patient's care. Further recommendations will depend on the patient's clinical course. Please do not hesitate to contact me if you have any questions or concerns. This medical document was created using an electronic medical record system with [employer] dictation system. Although these documentations are being carefully reviewed, there may still be some phonetic and typographical changes. The errors are purely typographical, due to imperfection on the software program, and do not reflect any compromise in the patient's medical care. Plan discussed with: Patient, Other (RN) My Orders Orders - SNEHA KUMARI MD Procedure Category Date Status Time Pt Request For Service PT 03/15/25 Logged 09:58 Visit Coding Pulmonary Billing Provider: SNEHA KUMARI MD Date of Service if different f: Mar 15, 2025 Common Visit Codes: [id number] INP/OBS CARE(HIGH) SNEHA KUMARI MD Mar 15, 2025 22:34
[2025-03-16] VITALS (11 sets, daily range): BP systolic 108–152; BP diastolic 59–83; PULSE 70–97; RESP 12–18; TEMP 97.3–98.2; O2SAT 92–100
[2025-03-16] MEDS: PANTOPRAZOLE 40 MG TAB PO SCH (05:46)
[2025-03-16 06:36] LABS: Hematocrit 31.6 % (36.0-46.0); Hemoglobin 10.6 g/dL (12.2-16.2); Mean Corpuscular Hemoglobin 27.7 pg (28.0-32.0); Mean Corpuscular Volume 82.4 fL (80.0-100.0); Nucleated Red Blood Cells % 0.0 %
[2025-03-16 06:50] LABS: Potassium 3.8 mmol/L (3.5-5.1); Sodium 139 mmol/L (136-145)
[2025-03-16 06:51] LABS: Anion Gap 6 (5-15); Calcium 8.9 mg/dL (8.7-10.4)
[2025-03-16 06:56] LABS: BUN/Creatinine Ratio 24.8 (10.0-20.0); Glucose 87 mg/dL (74-106)
[2025-03-16 07:02] LABS: Blood Urea Nitrogen 28 mg/dL (9-23); Carbon Dioxide 36 mmol/L (20-31); Chloride 97 mmol/L (98-107)
[2025-03-16] MEDS: DIGOXIN 0.125 MG TAB PO SCH (09:25)
[2025-03-16] MEDS: AMOXICILLIN/CLAVUL 875 MG TAB PO SCH (09:26)
--- NOTE | 2025-03-16 13:56 | MEDREC ---
[facility] ASP Intervention Section I FOR[facility] ASP Intervention: Review courses of therapy (Please consider switching from augmentin to bactrim PO for definitive final culture result ) MIKALA CONLEY [facility] RESIDENT Mar 16, 2025 13:56
[2025-03-16] MEDS ORDERED: AUG875T PO (15:51)
--- NOTE | 2025-03-16 17:17 | DVHDSRES ---
Discharge Summary Date of Admission Resident Creating Document: LAURO SANTIZO RESIDENT Mar 11, 2025 at 23:27 Date of Discharge: Mar 16, 2025 Admitting Diagnosis Acute hypoxic/hypercapnic respiratory failure Labs/Diagnostic Data: Laboratory Results Test 03/16/25 11:52 03/16/25 06:20 03/15/25 02:50 03/14/25 11:23 POC Glucose 257 mg/dl (70-106) White Blood Count 7.7 10^3/uL (4.4-10.8) Red Blood Count 3.84 10^6/uL (4.0-5.20) Hemoglobin 10.6 g/dL (12.2-16.2) Hematocrit 31.6 % (36.0-46.0) Mean Corpuscular Volume 82.4 fL (80.0-100.0) Mean Corpuscular Hemoglobin 27.7 pg (28.0-32.0) Mean Corpuscular Hemoglobin Concent 33.7 g/dL (32.0-36.0) Red Cell Distribution Width 17.6 % (11.8-14.3) Platelet Count 319 10^3/uL (140-450) Mean Platelet Volume 7.2 fL (6.9-10.8) Neutrophils (%) (Auto) 76.1 % (37.0-80.0) Lymphocytes (%) (Auto) 12.4 % (10.0-50.0) Monocytes (%) (Auto) 9.7 % (0.0-12.0) Eosinophils (%) (Auto) 1.7 % (0.0-7.0) Basophils (%) (Auto) 0.1 % (0.0-2.0) Neutrophils # (Auto) 5.8 10 ^3/uL (1.6-8.6) Lymphocytes # (Auto) 1.0 10 ^3/uL (0.4-5.4) Monocytes # (Auto) 0.7 10 ^3/uL (0-1.3) Eosinophils # (Auto) 0.1 10 ^3/uL (0-0.8) Basophils # (Auto) 0 10 ^3/uL (0-0.2) Nucleated Red Blood Cells 0.0 % Sodium Level 139 mmol/L (136-145) Potassium Level 3.8 mmol/L (3.5-5.1) Chloride Level 97 mmol/L (98-107) Carbon Dioxide Level 36 mmol/L (20-31) Anion Gap 6 (5-15) Blood Urea Nitrogen 28 mg/dL (9-23) Creatinine 1.13 mg/dL (0.550-1.02) Glomerular Filtration Rate Calc 48 mL/min (>90) BUN/Creatinine Ratio 24.8 (10.0-20.0) Serum Glucose 87 mg/dL (74-106) Calcium Level 8.9 mg/dL (8.7-10.4) Phosphorus Level 2.7 mg/dL (2.4-5.1) Magnesium Level 1.9 mg/dL (1.6-2.6) Total Bilirubin 0.4 mg/dL (0.2-1.0) Aspartate Amino Transferase (AST) 30 U/L (13-40) Alanine Aminotransferase (ALT) 34 U/L (7-40) Alkaline Phosphatase 78 U/L (46-116) Total Protein 6.0 g/dL (5.7-8.2) Albumin 3.5 g/dL (3.2-4.8) Random Vancomycin Level 15.2 ug/mL (5-10) Blood Gas Specimen Type Arterial Blood Gas Sample Site Right radial Blood Gas Patient Temperature 37.0 Arterial Blood Date Drawn Arterial Blood pH 7.494 (7.350-7.450) Arterial Blood Partial Pressure CO2 32.7 mmHg (32.0-45.0) Arterial Blood Partial Pressure O2 83.5 mmHg (83.0-108.0) Arterial Blood HCO3 24.6 mmol/L (21.0-28.0) Arterial Blood Oxygen Saturation 96.3 % (94.0-98.0) Arterial Blood Base Excess 1.7 mmol/L (-2.0-3.0) Arterial Blood Oxyhemoglobin 95.5 % (94.0-98.0) Arterial Blood Carboxyhemoglobin 0.6 % (0.5-1.5) Arterial Blood Methemoglobin 0.2 % (0.0-1.5) Adryan Test Modified Blood Gas Total Hemoglobin 11.10 g/dL (12.0-16.0) Blood Gas Modality Vent - cpap Blood Gas Spontaneous Rate 20 FiO2 % 30.0 Blood Gas Spontaneous Tidal Volume 631 Blood Gas Pressure Support 8 Blood Gas PEEP or CPAP 5.0 Test 03/14/25 07:47 03/13/25 09:47 03/12/25 14:04 03/12/25 13:02 Blood Gas Set Respiration Rate 20.0 Blood Gas Tidal Volume 400.0 Iron Level 14 ug/dL (50-170) Total Iron Binding Capacity 262 ug/dL (250-425) Percent Iron Saturation 5.3 % (15-50) Ferritin 100.9 ng/mL (10-291) Urine Color Light-yellow (Yellow) Urine Clarity Clear (Clear) Urine pH 5.0 (5.0-9.0) Urine Specific [place] 1.008 (1.001-1.035) Urine Protein Negative (Negative) Urine Ketones Negative (Negative) Urine Blood Negative /uL (Negative) Urine Nitrite Negative (Negative) Urine Bilirubin Negative (Negative) Urine Urobilinogen Normal mg/dL (Negative) Urine Leukocyte Esterase Negative /uL (Negative) Urine RBC None seen /hpf (0 - 4) Urine Microscopic WBC < 1 /HPF (0-5) Urine Squamous Epithelial Cells Few /hpf (<5) Urine Bacteria Few /hpf (None Seen) Urine Mucus Few (None Seen) Urine Glucose 3+ mg/dL (Normal) SARS-CoV-2 Antigen (Rapid) Negative (NEGATIVE) Test 03/12/25 01:45 03/11/25 23:00 03/11/25 22:12 D-Dimer, Quantitative 3.95 mg/L FEU (0.0-0.49) Hemoglobin A1c 6.0 % A1C (<5.7) B-Type Natriuretic Peptide 1093.89 pg/mL (0-100) Thyroid Stimulating Hormone (TSH) 1.32 uIU/mL (0.55-4.78) Troponin I High Sensitivity 14 ng/L (</=34) Blood Gas Critical Value Read Back Yes Blood Gas Notified Whom iveth Fernandez md Blood Gas Notified Time [id number] Blood Gas Notified By darrian Connors rrt Other Laboratory Tests 03/16/25 06:20 Brief Hx & Hospital Course: HPI: Patient is 54-year-old female who brought to the hospital with a chief complaint of shortness of breath. During initial evaluation in emergency department, patient found to have low oxygen saturation at 33% on room air, initially put on BiPAP, L to protect the airway patient was intubated on 03/11/2025. Past medical history: Pulmonary artery hypertension, HFrEF, Chronic obstructive pulmonary disease, sick sinus syndrome status post pacemaker, atrial fibrillation, diabetes mellitus, lipids, hypertension Past surgical history: Take care bilateral tubal ligation Personal history: Smoker, no history of alcohol or drug use. Hospital course: Patient shortness of breath likely due to acute on chronic hypoxic and hypercapnia respiratory failure due to Chronic obstructive pulmonary disease exacerbation, pulmonary hypertension and pneumonia. While patient intubated, patient received IV antibiotics, nebulization with albuterol, and ventilation management. Patient was diuresis with Lasix as well for given underlying heart failure preserved ejection fraction. Patient was in ICU for three days, extubated back on 03/14/2025. Meanwhile patient was continued on amiodarone 200 mg q.i.d., continued on Plavix 75 mg p.o. daily only, given history of bleeding, patient was not started on Eliquis for atrial fibrillation. Cardiology consultation was done as well. Hemp Fiber Taker Off continued on digoxin and even Gio for atrial fibrillation and HFpEF. Once patient was hemodynamically stable after extubation, patient was downgraded to telemetry, patient was able to swallow, PT evaluation done, L patient was discharged home on 03/16/2025, advised to follow with primary care physician Cardiology in one week. All clinicals were explained to patient and her family member, they agreed with the discharge plan and they we will follow with primary care physician in 1-2 weeks. Patient has been discharged with antibiotic Augmentin 875 mg p.o. b.i.d. for five days. Operations or Procedures Condition at Discharge: Stable Final Diagnosis/Problems List Acute metabolic encephalopathy Acute HFpEF Acute on chronic hypoxic and hypercapnic respiratory failure Pneumonia Gram-positive versus negative Pulmonary hypertension Chronic obstructive pulmonary disease exacerbation Septic shock due to pneumonia Gram-positive versus negative Normocytic, normochromic anemia Diabetes mellitus type 2 HGB A1c 6% on 03/12/2025 Dyslipidemia Discharge Disposition: Home Discharge Instruct/Medications Diet: Cardiac 2g Na,low cholest Activity: No Restrictions, As Tolerated Follow Up/Referral: -follow up with pcp and cardiology in 1 weeks Medications: see prescriptions Scheduled Amiodarone Hcl (Amiodarone Hcl), 200 MG PO DAILY, (Reported) Amoxicillin & Pot Clavulanate (Augmentin Tablet), 875 MG PO Q12HR Ascorbic Acid (Vitamin C Tablet), 500 MG PO BID Atorvastatin Calcium (Lipitor), 1 TAB PO QPM, (Reported) Clopidogrel Bisulfate (Clopidogrel), 75 MG PO DAILY Dapagliflozin Propanediol (Farxiga), 5 MG PO DAILY, (Reported) Donepezil Hydrochloride (Donepezil Hcl), 1 TAB PO DAILY@DINNER, (Reported) Hydrochlorothiazide W/Triamter (Dyazide 37.5/25MG), 1 CAP PO DAILY, (Reported) Metoprolol Tartrate (Lopressor), 25 MG PO Q12HR, (Reported) Scheduled PRN Albuterol Sulfate (Albuterol Sulfate Hfa), 2 PUFF IN Q6HP PRN for SHORTNESS OF BREATH, (Reported) Miscellaneous Medications Umeclidinium-Vilanterol (Anoro Ellipta 62.5-25 Mcg/INH), 1 AER IN, (Reported) Discontinued Medications Azithromycin (Zithromax Tablet), 250 MG PO DAILY Cefpodoxime Proxetil (Cefpodoxime Proxetil), 1 TAB PO BID Metformin HCl (Metformin Hydrochloride), 1,000 MG PO BID, (Reported) Nifedipine (Nifedipine ER), 1 TAB PO DAILY, (Reported) Potassium Chloride (Klor-Con M10), 10 MEQ PO BID, (Reported) Durable Medical Equipment Blood Glucose Monitoring Suppl (Easy Touch Glucose [place]), AC XX, (DME) Discharge Statement: "Patient was advised to return to the ER or call 911 if any headaches, dizziness, shortness of breath, chest pain, abdominal pain, bleeding, fevers, or worsening of medical condition. Patient was counseled about treatment plan, medications, possible side effects, patientverbalized understanding. All questions were answered to the best of my ability. This discharge took greater then 30 minutes in planning, reviewing documentation, counseling the patient, and discussing with other team members." ASSESSMENT ASSESSMENT Assessment Acute HFpEF Paroxysmal atrial fibrillation History of hypertension COPD exacerbation LAURO SANTIZO RESIDENT Mar 16, 2025 17:17
--- NOTE | 2025-03-17 14:18 | DVHPN2 ---
Progress Note - Dictate Date Seen: Mar 14, 2025 Medical Necessity Reason Pt with a Central, PICC or Fol: Yes The following are medically ne: [place] Catheter Subjective PT WITH DILATED/ ISCHEMIC CM EFrEF ACUTE DECOMPENSATION S/P DUAL CHAMBER AICD S/P PTCA STENT DIAGONAL HX OF AFIB ACUTE RESP ARREST HYPOCAPNIA COPD DIABETES HTN vital signs Vital Sign Date Time Temp Pulse Resp B/P (MAP) Pulse Ox O2 Delivery O2 Flow Rate FiO2 03/16/25 17:00 97.6 92 18 152/83 (106) 95 97.6 03/16/25 10:00 Nasal Cannula* 3 32 Total Intake and Output 03/16/25 03/16/25 03/17/25 15:00 23:00 07:00 Intake Total 500 ml Balance 500 ml medications Current Medications Medications Dose Ordered Sig/Long Route Start Time Stop Time Status Last Admin Dose Admin Enoxaparin Sodium 40 mg DAILY SC 03/12/25 10:00 UNV Furosemide 20 mg BIDD IV 03/13/25 18:00 Cancel laboratory and microbiology Laboratory Tests 03/16/25 06:20 Test 03/16/25 06:20 Range/Units Serum Glucose 87 74-106 mg/dL Problem List DILATED/ ISCHEMIC CM EFrEF ACUTE DECOMPENSATION S/P DUAL CHAMBER AICD S/P PTCA STENT DIAGONAL HX OF AFIB ACUTE RESP ARREST HYPOCAPNIA COPD DIABETES HTN CKD STAGE II Assessment/Plan RESP STATUS IMPROVED BUT STILL APNEIC NEURO EXAM CONT SUPPORTIVE THERAPY DIURESIS DIG CORLANOR MONITOR k EXTUBATE Dietary Evaluation Review Comments: Nutrition Plan Summary: Enteral Nutrition (EN): Patient is underweight with elevated glucose. Recommend Glucerna via tube feeding at 45 mL/hr. Provides: 65g protein 1296 kcal 869 mL free water over 24 hours Meets 116% of protein and 137% of energy needs Initiation: Start at 20 mL/hr, increase by 10 mL every 6 hours until goal rate is reached. Alternative Nutrition: Consider TPN per pharmacy if EN is not feasible. Reassessment Plan: After extubation, reassess. If patient passes RECLAMATION KETTLE TENDER evaluation, [facility]. Would you like this formatted for a progress note or consult report? Expected Outcomes/Goals: 1. being extubated and able to eat orally, 2. gradually healinf of sacral ulcer and gaining body weight. 3. overall improvement of health status. Plan discussed with: Patient WILEY SALINAS MD Mar 17, 2025 14:18
--- NOTE | 2025-03-17 14:19 | DVHPN2 ---
Progress Note - Dictate Date Seen: Mar 15, 2025 Medical Necessity Reason Pt with a Central, PICC or Fol: Yes The following are medically ne: [place] Catheter Subjective PT WITH DILATED/ ISCHEMIC CM EFrEF ACUTE DECOMPENSATION S/P DUAL CHAMBER AICD S/P PTCA STENT DIAGONAL HX OF AFIB ACUTE RESP ARREST HYPOCAPNIA COPD DIABETES HTN vital signs Vital Sign Date Time Temp Pulse Resp B/P (MAP) Pulse Ox O2 Delivery O2 Flow Rate FiO2 03/16/25 17:00 97.6 92 18 152/83 (106) 95 97.6 03/16/25 10:00 Nasal Cannula* 3 32 Total Intake and Output 03/16/25 03/16/25 03/17/25 15:00 23:00 07:00 Intake Total 500 ml Balance 500 ml medications Current Medications Medications Dose Ordered Sig/Long Route Start Time Stop Time Status Last Admin Dose Admin Enoxaparin Sodium 40 mg DAILY SC 03/12/25 10:00 UNV Furosemide 20 mg BIDD IV 03/13/25 18:00 Cancel laboratory and microbiology Laboratory Tests 03/16/25 06:20 Test 03/16/25 06:20 Range/Units Serum Glucose 87 74-106 mg/dL Problem List DILATED/ ISCHEMIC CM EFrEF ACUTE DECOMPENSATION S/P DUAL CHAMBER AICD S/P PTCA STENT DIAGONAL HX OF AFIB ACUTE RESP ARREST HYPOCAPNIA COPD DIABETES HTN CKD STAGE II Assessment/Plan RESP STATUS IMPROVED BUT STILL APNEIC NEURO EXAM CONT SUPPORTIVE THERAPY DIURESIS DIG CORLANOR MONITOR k EXTUBATED TOLERATING EXTUBATION DC HOME IN AM Dietary Evaluation Review Comments: Nutrition Plan Summary: Enteral Nutrition (EN): Patient is underweight with elevated glucose. Recommend Glucerna via tube feeding at 45 mL/hr. Provides: 65g protein 1296 kcal 869 mL free water over 24 hours Meets 116% of protein and 137% of energy needs Initiation: Start at 20 mL/hr, increase by 10 mL every 6 hours until goal rate is reached. Alternative Nutrition: Consider TPN per pharmacy if EN is not feasible. Reassessment Plan: After extubation, reassess. If patient passes RELATIONSHIP ADVISOR evaluation, [facility]. Would you like this formatted for a progress note or consult report? Expected Outcomes/Goals: 1. being extubated and able to eat orally, 2. gradually healinf of sacral ulcer and gaining body weight. 3. overall improvement of health status. Plan discussed with: Patient WILEY SALINAS MD Mar 17, 2025 14:19
--- NOTE | 2025-03-17 14:20 | DVHPN2 ---
Progress Note - Dictate Date Seen: Mar 16, 2025 Medical Necessity Reason Pt with a Central, PICC or Fol: Yes The following are medically ne: [place] Catheter Subjective PT WITH DILATED/ ISCHEMIC CM EFrEF ACUTE DECOMPENSATION S/P DUAL CHAMBER AICD S/P PTCA STENT DIAGONAL HX OF AFIB ACUTE RESP ARREST HYPOCAPNIA COPD DIABETES HTN vital signs Vital Sign Date Time Temp Pulse Resp B/P (MAP) Pulse Ox O2 Delivery O2 Flow Rate FiO2 03/16/25 17:00 97.6 92 18 152/83 (106) 95 97.6 03/16/25 10:00 Nasal Cannula* 3 32 Total Intake and Output 03/16/25 03/16/25 03/17/25 15:00 23:00 07:00 Intake Total 500 ml Balance 500 ml medications Current Medications Medications Dose Ordered Sig/Long Route Start Time Stop Time Status Last Admin Dose Admin Enoxaparin Sodium 40 mg DAILY SC 03/12/25 10:00 UNV Furosemide 20 mg BIDD IV 03/13/25 18:00 Cancel laboratory and microbiology Laboratory Tests 03/16/25 06:20 Test 03/16/25 06:20 Range/Units Serum Glucose 87 74-106 mg/dL Problem List DILATED/ ISCHEMIC CM EFrEF ACUTE DECOMPENSATION S/P DUAL CHAMBER AICD S/P PTCA STENT DIAGONAL HX OF AFIB ACUTE RESP ARREST HYPOCAPNIA COPD DIABETES HTN CKD STAGE II Assessment/Plan RESP STATUS IMPROVED BUT STILL APNEIC NEURO EXAM CONT SUPPORTIVE THERAPY DIURESIS DIG CORLANOR MONITOR k EXTUBATED TOLERATING EXTUBATION DC HOME WITH HOME HEALTH Dietary Evaluation Review Comments: Nutrition Plan Summary: Enteral Nutrition (EN): Patient is underweight with elevated glucose. Recommend Glucerna via tube feeding at 45 mL/hr. Provides: 65g protein 1296 kcal 869 mL free water over 24 hours Meets 116% of protein and 137% of energy needs Initiation: Start at 20 mL/hr, increase by 10 mL every 6 hours until goal rate is reached. Alternative Nutrition: Consider TPN per pharmacy if EN is not feasible. Reassessment Plan: After extubation, reassess. If patient passes DIRECTOR PRIVATE evaluation, advance to [facility]-60 diet. Would you like this formatted for a progress note or consult report? Expected Outcomes/Goals: 1. being extubated and able to eat orally, 2. gradually healinf of sacral ulcer and gaining body weight. 3. overall improvement of health status. Plan discussed with: Patient WILEY SALINAS MD Mar 17, 2025 14:20
[2025-03-19] MEDS ORDERED: SULF400T11 PO (11:09)
== END 2025-03-16 18:00 | disposition home or self-care (01) | DRG 871 ==
LOC: EDBD 19:50 → ER 19:54 → OVERFLOW 23:27 → ICU WEST 03-12 01:24 → TELE-WESTW 03-15 13:30
PROVIDERS: ADMIT Internal Medicine Pulmonary Disease; ATTEND Internal Medicine Pulmonary Disease
PROC: 5A1945Z Respiratory Ventilation, 24-96 Consecutive Hours (ICD-10-PCS; principal; 2025-03-11)
PROC: 0BH17EZ Insertion of Endotracheal Airway into Trachea, Via Natural or Artificial Opening (ICD-10-PCS; 2025-03-11)
PROC: 5A09357 Assistance with Respiratory Ventilation, Less than 24 Consecutive Hours, Continuous Positive Airway Pressure (ICD-10-PCS; 2025-03-11)
DX: A41.50 Gram-negative sepsis, unspecified (principal); G93.41 Metabolic encephalopathy; R65.21 Severe sepsis with septic shock; J96.22 Acute and chronic respiratory failure with hypercapnia; J96.21 Acute and chronic respiratory failure with hypoxia; I50.31 Acute diastolic (congestive) heart failure; J15.69 Pneumonia due to other Gram-negative bacteria; J15.9 Unspecified bacterial pneumonia; J44.0 Chronic obstructive pulmonary disease with (acute) lower respiratory infection; J44.1 Chronic obstructive pulmonary disease with (acute) exacerbation; Z68.1 Body mass index [BMI] 19.9 or less, adult; I13.0 Hypertensive heart and chronic kidney disease with heart failure and stage 1 through stage 4 chronic kidney disease, or unspecified chronic kidney disease; E11.22 Type 2 diabetes mellitus with diabetic chronic kidney disease; I25.5 Ischemic cardiomyopathy; N18.2 Chronic kidney disease, stage 2 (mild); F17.210 Nicotine dependence, cigarettes, uncomplicated; I27.20 Pulmonary hypertension, unspecified; I48.0 Paroxysmal atrial fibrillation; L98.429 Non-pressure chronic ulcer of back with unspecified severity; R63.6 Underweight; Z82.49 Family history of ischemic heart disease and other diseases of the circulatory system; Z83.3 Family history of diabetes mellitus; Z98.61 Coronary angioplasty status; Z20.822 Contact with and (suspected) exposure to COVID-19; D64.9 Anemia, unspecified; E78.5 Hyperlipidemia, unspecified; Z79.899 Other long term (current) drug therapy
CPT/HCPCS: 31500; 36415; 36600; 71045; 80048; 80053; 80202; 81001; 82728; 82805; 82962; 83036; 83540; 83550; 83735; 83880; 84100; 84443; 84484; 85025; 85379; 87040; 87070; 87077; 87081; 87086; 87186; 87205; 87426; 93005; 93970; 94002; 94003; 94640; 94660; 96365; 96375; 97110; 97116; 97163; 97530; G0378; J0330; J1100; J1815; J2470

== ENCOUNTER 2025-03-25 08:58 | Outpatient (CLI) | payer MEDICARE, OTHER ==
[~2025-03-25 08:58] MED LIST changes: +AUG875T PO; -AZIT-185 PO; -CEFP200T15 PO; -METF-929 PO; -NIFE1TAB36 PO; -POTA-215 PO; +SULF400T11 PO
== END 2025-03-25 17:00 | disposition home or self-care (01) ==
LOC: Rad HDHVI 08:58
PROVIDERS: ATTEND Internal Medicine Cardiovascular Disease
DX: I08.3 Combined rheumatic disorders of mitral, aortic and tricuspid valves (principal); I25.5 Ischemic cardiomyopathy; R42 Dizziness and giddiness; Z95.0 Presence of cardiac pacemaker
CPT/HCPCS: 93306

== ENCOUNTER 2025-03-26 00:03 | Inpatient (IN) | payer MEDICARE, OTHER ==
[~2025-03-26] VITALS: Ht 165.1 cm; Wt 100.0 kg
[2025-03-26] VITALS (59 sets, daily range): BP systolic 84–118; BP diastolic 46–64; PULSE 63–103; RESP 14–31; TEMP 98.2–99.5; O2SAT 86–100
[2025-03-26] MEDS: ETOMIDATE (2MG/ML) 20ML VIAL IV ONE ×2 (00:16)
[2025-03-26] MEDS: ROCURONIUM 10MG/ML 10ML VIAL IV ONE ×2 (00:16)
[2025-03-26] MEDS: AZITHROMYCIN 500MG/250ML 250 ML IV ONE (00:20)
[2025-03-26] MEDS: PROPOFOL 100 ML IV SCH (00:30)
[2025-03-26] MEDS: PROPOFOL 100 ML IV ONE (00:30)
[2025-03-26] MEDS ORDERED: PROPOFOL 100 ML IV SCH (00:30)
--- NOTE | 2025-03-26 00:30 | ED.PDOC ---
SOB-HPI HPI Comments 84 year old female with PMHx a-fib, CHF, COPD, DM, HLD, HTN, recent intubation, presents to the ED via EMS with a chief complaint of shortness of breath onset 2 hours. Per EMS, patient was recently seen in this ED, was intubated 03/11/25 due to respiratory distress, was discharged 03/17/25. Per EMS, 911 was called by family due to patient experiencing shortness of breath, was alerted, breathing treatment was given prior to EMS arrival. Upon EMS arrival patient's O2 was high 80s, was on 2L O2. She was placed on NRB, given breathing treatment in route to ED, upon ED arrival O2 sat was 87%. Patient was intubated with 7.5 ett tube, 24 cm @ lips. 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 SHEET METAL ERECTOR History Family History Family History: Family hx of DM, Family hx of HTN Social History Smoker: Cigarettes Alcohol: Denies ETOH Use Drugs: Denies Drug Use Lives In: Home Unable to Obtain due to: Medical Urgency Physical Exam General Appearance: Normal HEENT: Normal ENT Inspection, Pharynx Normal, TMs Normal Neck: Full Range of Motion, Non-Tender, Normal, Normal Inspection Respiratory: Chest Non-Tender, Lungs Clear, No Accessory Muscle Use, No Respiratory Distress, Normal Breath Sounds Cardiovascular: No Edema, No JVD, No Murmur, No Gallop, Normal Peripheral Pulses, Regular Rate/Rhythm Breast Exam: Deferred Gastrointestinal: No Organomegaly, Non Tender, No Pulsatile Mass, Normal Bowel Sounds, Soft Genitalia: Deferred Pelvic: Deferred Rectal: Deferred Extremities: No calf tenderness, Normal capillary refill, Normal inspection, Normal range of motion, Non-tender, No pedal edema Musculoskeletal : Apperance: Normal Neurologic: Alert, check pilot II-XII nml as Tested, No Motor Deficits, Normal Affect, Normal Mood, No Sensory Deficits Cerebellar Function: Normal Reflexes: Normal Skin: Dry, Normal Color, Warm Lymphatic: No Adenopathy Was a procedure done? Was a procedure done?: Yes Sedation Sedation?: Yes Informed consent obtained: Yes Sedation start time: 00:15 Sedation end time: 00:40 Sedation total time: 10 mg etomidate 80 mg Rocuronium Intubation Indication: Respiratory Insufficiency Prep: Preoxygenation Pretreated with: Sedation Intubation Approach: Orotracheal (7.5 ett) Intubation size: cm (24) Informed consent obtained: Yes Risks/benefits/alt described: Yes Differential Dx Differential Diagnosis: Anxiety, Asthma, Bronchitis, Cardiogenic Shock, CHF, COPD, Pneumonia, Pneumothorax, Pulmonary Embolism, Respiratory Distress, URI, Other X-Ray, Labs, Meds, VS Vital Signs Date Time Temp Pulse Resp B/P (MAP) Pulse Ox O2 Delivery O2 Flow Rate FiO2 03/26/25 03:00 89 20 156/76 (102) 100 03/26/25 02:45 90 20 153/74 (100) 100 03/26/25 02:30 86 20 157/74 (101) 100 03/26/25 02:29 94 03/26/25 02:16 96 20 153/75 (101) 100 100 03/26/25 02:15 91 21 100 Mechanical Ventilator+ 100 100 03/26/25 02:15 92 19 153/75 (101) 100 03/26/25 01:30 166/78 03/26/25 01:30 100 19 166/78 (107) 100 03/26/25 01:15 95 19 166/84 (111) 100 03/26/25 01:00 109 19 172/84 (113) 100 03/26/25 00:45 109 19 159/87 (111) 100 03/26/25 00:40 98.4 98.4 03/26/25 00:30 98 10 139/82 (101) 100 03/26/25 00:30 139/82 03/26/25 00:19 95 20 126/61 (82) 100 100 03/26/25 00:17 100 13 126/61 (82) 93 03/26/25 00:16 144/73 03/26/25 00:09 97.1 94 28 144/73 92 97.1 03/26/25 00:07 103 31 144/73 (96) 86 03/26/25 00:07 103 31 86 Non-Rebreather 15 N/A Lab Test 03/26/25 02:40 03/26/25 01:15 03/26/25 00:10 Range/Units Blood Gas Specimen Type Arterial Blood Gas Sample Site Left radial Blood Gas Patient Temperature 37.0 Arterial Blood Date Drawn [id number] Arterial Blood pH 7.205 *L 7.350-7.450 Arterial Blood Partial Pressure CO2 60.1 *H 32.0-45.0 mmHg Arterial Blood Partial Pressure O2 293.1 H 83.0-108.0 mmHg Arterial Blood HCO3 23.2 21.0-28.0 mmol/L Arterial Blood Oxygen Saturation 99.7 H 94.0-98.0 % Arterial Blood Base Excess -5.3 L -2.0-3.0 mmol/L Arterial Blood Oxyhemoglobin 98.5 H 94.0-98.0 % Arterial Blood Carboxyhemoglobin 0.6 0.5-1.5 % Arterial Blood Methemoglobin 0.6 0.0-1.5 % Adryan Test Modified Blood Gas Total Hemoglobin 11.80 L 12.0-16.0 g/dL Blood Gas Set Respiration Rate 20.0 Blood Gas Modality Vent - ac FiO2 % 100.0 Blood Gas Tidal Volume 400.0 Blood Gas PEEP or CPAP 5.0 Blood Gas Critical Value Read Back Yes Blood Gas Notified Whom Md jazmine griggs Blood Gas Notified Time [id number] Blood Gas Notified By Rt misael finley Sodium Level 136 136-145 mmol/L Potassium Level 4.7 3.5-5.1 mmol/L Chloride Level 102 98-107 mmol/L Carbon Dioxide Level 25 20-31 mmol/L Anion Gap 9 5-15 Blood Urea Nitrogen 18 9-23 mg/dL Creatinine 1.34 H 0.550-1.02 mg/dL Glomerular Filtration Rate Calc 39 >90 mL/min BUN/Creatinine Ratio 13.4 10.0-20.0 Serum Glucose 226 H 74-106 mg/dL Calcium Level 9.3 8.7-10.4 mg/dL Total Bilirubin 0.4 0.2-1.0 mg/dL Aspartate Amino Transferase (AST) 39 13-40 U/L Alanine Aminotransferase (ALT) 31 7-40 U/L Alkaline Phosphatase 114 46-116 U/L Troponin I High Sensitivity 9 7 </=34 ng/L Total Protein 6.8 5.7-8.2 g/dL Albumin 4.0 3.2-4.8 g/dL White Blood Count 22.0 H 4.4-10.8 10^3/uL Red Blood Count 3.99 L 4.0-5.20 10^6/uL Hemoglobin 10.8 L 12.2-16.2 g/dL Hematocrit 34.8 L 36.0-46.0 % Mean Corpuscular Volume 87.3 80.0-100.0 fL Mean Corpuscular Hemoglobin 27.1 L 28.0-32.0 pg Mean Corpuscular Hemoglobin Concent 31.1 L 32.0-36.0 g/dL Red Cell Distribution Width 18.7 H 11.8-14.3 % Platelet Count 470 H 140-450 10^3/uL Mean Platelet Volume 7.6 6.9-10.8 fL Neutrophils (%) (Auto) 82.0 H 37.0-80.0 % Lymphocytes (%) (Auto) 10.5 10.0-50.0 % Monocytes (%) (Auto) 5.9 0.0-12.0 % Eosinophils (%) (Auto) 1.2 0.0-7.0 % Basophils (%) (Auto) 0.4 0.0-2.0 % Neutrophils # (Auto) 18.1 H 1.6-8.6 10 ^3/uL Lymphocytes # (Auto) 2.3 0.4-5.4 10 ^3/uL Monocytes # (Auto) 1.3 0-1.3 10 ^3/uL Eosinophils # (Auto) 0.3 0-0.8 10 ^3/uL Basophils # (Auto) 0.1 0-0.2 10 ^3/uL Nucleated Red Blood Cells 0.1 % Prothrombin Time 11.1 9.3-11.8 sec Prothrombin Time INR 1.05 0.9-1.15 Activated Partial Thromboplast Time 26.7 24.5-34.5 SEC Lactic Acid Level 1.8 0.4-2.0 mmol/L Current Medications Medications (Trade) Dose Ordered Sig/Long Route Start Time Stop Time Status Last Admin Etomidate 10 mg ONCE ONCE IV 03/26/25 00:15 03/26/25 00:16 DC 03/26/25 00:16 Propofol 100 ml @ 1.527 mls/ hr Q24H IV 03/26/25 00:15 03/26/25 00:30 Sodium Chloride 1,700 ml @ 1,700 mls/hr ONCE ONCE IV 03/26/25 00:30 03/26/25 01:29 DC 03/26/25 00:56 Piperacillin Sod/ Tazobactam Sod 100 ml @ 100 mls/hr ONCE ONCE IV 03/26/25 00:30 03/26/25 01:29 DC 03/26/25 00:50 Azithromycin 250 ml @ 125 mls/hr ONCE ONCE IV 03/26/25 00:30 03/26/25 02:29 DC 03/26/25 00:20 Time of 1ST Reevaluation: 00:40 Reevaluation 1ST: Unchanged Patient Education/Counseling: Other Family Education/Counseling: No Family Present SEPSIS Sepsis Screen Date sepsis recognized/suspect: Mar 26, 2025 Time Sepsis recognized/suspect: 16 Recent Procedure: No On Antibiotic Therapy: No Respiratory Rate >20: Yes Heart Rate >90: Yes Temp<36 C (96.8 F) or >38.3 C: No SBP <90 or MAP <65 mmHG: No New Acute Mental Status Change: Yes Is the patient on CPAP, BIPAP,: No Physician Orders Propofol (Diprivan) (03/26/25 00:15) Rass Sedation Scale Q1HR (03/26/25 00:14) Chest Portable (03/26/25 00:18) Head Without Contrast (03/26/25 00:22) Ct Ab Pel With Iv Con Only (03/26/25 00:22) Ventilator Orders (03/26/25 00:25) Abg W/ Co-Ox (03/26/25 01:00) Respiratory Culture W/ Gs (03/26/25 00:25) Blood Culture (03/26/25 00:23) Ventilator Orders (03/26/25 02:40) Vital Signs Date Time Temp Pulse Resp B/P (MAP) Pulse Ox O2 Delivery O2 Flow Rate FiO2 03/26/25 03:00 89 20 156/76 (102) 100 03/26/25 02:45 90 20 153/74 (100) 100 03/26/25 02:30 86 20 157/74 (101) 100 03/26/25 02:29 94 11/6/25 02:16 96 20 153/75 (101) 100 100 03/26/25 02:15 91 21 100 Mechanical Ventilator+ 100 100 03/26/25 02:15 92 19 153/75 (101) 100 03/26/25 01:30 166/78 03/26/25 01:30 100 19 166/78 (107) 100 03/26/25 01:15 95 19 166/84 (111) 100 03/26/25 01:00 109 19 172/84 (113) 100 03/26/25 00:45 109 19 159/87 (111) 100 03/26/25 00:40 98.4 98.4 03/26/25 00:30 98 10 139/82 (101) 100 03/26/25 00:30 139/82 03/26/25 00:19 95 20 126/61 (82) 100 100 03/26/25 00:17 100 13 126/61 (82) 93 03/26/25 00:16 144/73 03/26/25 00:09 97.1 94 28 144/73 92 97.1 03/26/25 00:07 103 31 144/73 (96) 86 03/26/25 00:07 103 31 86 Non-Rebreather 15 N/A Laboratory Tests Test 03/26/25 00:10 Lactic Acid Level 1.8 mmol/L (0.4-2.0) White Blood Count 22.0 10^3/uL (4.4-10.8) H Medications Medications Dose Ordered Sig/Long Route Start Time Stop Time Status Last Admin Dose Admin Azithromycin 250 ml @ 125 mls/hr ONCE ONCE IV 03/26/25 00:30 03/26/25 02:29 DC 03/26/25 00:20 Etomidate 10 mg ONCE ONCE IV 03/26/25 00:15 03/26/25 00:16 DC 03/26/25 00:16 Piperacillin Sod/ Tazobactam Sod 100 ml @ 100 mls/hr ONCE ONCE IV 03/26/25 00:30 03/26/25 01:29 DC 03/26/25 00:50 Propofol 100 ml @ 1.527 mls/ hr Q24H IV 03/26/25 00:15 03/26/25 00:30 Sodium Chloride 1,700 ml @ 1,700 mls/hr ONCE ONCE IV 03/26/25 00:30 03/26/25 01:29 DC 03/26/25 00:56 Departure 1 Departure Time of Disposition: 03:34 Impression: Primary Impression: Acute metabolic encephalopathy Additional Impressions: Respiratory failure with hypoxia and hypercapnia COPD exacerbation Disposition: ADMITTED INPATIENT Admit to: ICU Condition: Guarded Discharged With: Self Comments 84-year-old female with a history of COPD now with severe shortness of breath. Also decreased mental status. Her oxygen saturation is low even with oxygen. Patient was intubated on arrival. Her white blood cell count is high at 22. She had some renal insufficiency with BUN creatinine of 18 and 1.34. Her ABG shows respiratory failure with hypercapnia of PCOS 60 and a pH of 7.2. Patient will need ICU admission for supportive care and further workup. Critical Care Note Critical Care Time?: Yes (35 min-critical care time only) Critical care comment: Total critical care time: Approximately 36 minutes Due to a high probability of clinically significant, life threatening deterioration, the patient required my highest level of preparedness to intervene emergently and I personally spent this critical care time directly and personally managing the patient. This critical care time included obtaining a history; examining the patient; pulse oximetry; ordering and review of studies; arranging urgent treatment with development of a management plan; evaluation of patient's response to treatment; frequent reassessment; and, discussions with other providers. This critical care time was performed to assess and manage the high probability of imminent, life-threatening deterioration that could result in multi-organ failure. It was exclusive of separately billable procedures and treating other patients. Stability Stability form required: No Heart Score Heart Score: Heart Score Response (Comments) Value History N/A 0 EKG N/A 0 Age N/A 0 Risk Factors N/A 0 Troponin N/A 0 Total 0 I personally scribed for NGOC GRIGGS MD ([email or web address]) on 03/26/25 at 00:30. Electronically submitted by Keri Aguirre ([email or web address]). NGOC GRIGGS MD Mar 26, 2025 00:30
[2025-03-26 00:38] LABS: Hemoglobin 10.8 g/dL (12.2-16.2); Nucleated Red Blood Cells % 0.1 %
[2025-03-26 00:40] LABS: Hematocrit 34.8 % (36.0-46.0); Mean Corpuscular Hemoglobin 27.1 pg (28.0-32.0); Mean Corpuscular Volume 87.3 fL (80.0-100.0)
[2025-03-26] MEDS: PIPERACILLIN-TAZOB 3.375GM 100 ML IV ONE (00:50)
[2025-03-26 00:53] LABS: INR 1.05 (0.9-1.15); Partial Thromboplastin Time 26.7 SEC (24.5-34.5); Prothrombin Time 11.1 sec (9.3-11.8)
[2025-03-26] MEDS: SODIUM CHLORIDE 0.9% 1,700 ML IV ONE (00:56)
--- NOTE | 2025-03-26 00:56 | DVH ---
CHEST RADIOGRAPH Indication: intubation Technique: Single frontal view of the chest was obtained COMPARISON: XY CHEST XRAY 1 VIEW on DOS: 03/14/25, XY CHEST XRAY 1 VIEW on DOS: 03/14/25, XY CHEST XRAY 1 VIEW on DOS: 03/13/25, XY CHEST XRAY 1 VIEW on DOS: 03/11/25, XY CHEST XRAY 1 VIEW on DOS: 03/11/25 FINDINGS: Lines and Tubes: Status post intubation. Endotracheal tube tip projects approximately 5.6 cm above the level of the brii. Enteric catheter courses below the level of the diaphragm and terminates beyond the inferior margin of the image. Lungs: Diffuse bilateral pulmonary opacity and increased prominence of the pulmonary vasculature and interstitium. Pleura: No effusion. No pneumothorax. Cardiomediastinal contours: Unremarkable Bones: Unremarkable IMPRESSION: 1. Status post intubation. Endotracheal tube tip projects approximately 5.6 cm above the level of the brii. 2. Enteric catheter courses below the level of the diaphragm and terminates beyond the inferior margin of the image. 3. Diffuse bilateral pulmonary opacities with increased prominence of the pulmonary vasculature and interstitium.
[2025-03-26 01:32] LABS: Anion Gap 9 (5-15)
[2025-03-26 01:33] LABS: Calcium 9.3 mg/dL (8.7-10.4); Carbon Dioxide 25 mmol/L (20-31); Chloride 102 mmol/L (98-107); Potassium 4.7 mmol/L (3.5-5.1); Sodium 136 mmol/L (136-145)
[2025-03-26 01:41] LABS: Albumin 4.0 g/dL (3.2-4.8); Alkaline Phosphatase 114 U/L (46-116); Bilirubin, Total 0.4 mg/dL (0.2-1.0); Glucose 226 mg/dL (74-106); Total Protein 6.8 g/dL (5.7-8.2)
[2025-03-26 01:42] LABS: Alanine Aminotransferase 31 U/L (7-40); BUN/Creatinine Ratio 13.4 (10.0-20.0); Blood Urea Nitrogen 18 mg/dL (9-23)
[2025-03-26] MEDS: IOHEXOL 300 MG/ML 100ML BOTTLE IJ ONE (01:47)
--- NOTE | 2025-03-26 02:32 | ECG ---
[facility] Test Date: 2025-03-26 Test Time: 02:29:40 Pat Name: FLORENTINO PATRICK Department: [facility] ED Patient ID: [id number] Room: 0264 Gender: F Natural Resources Specialist: RICHARDSON : 1940 Requested By: NGOC GRIGGS Order Number: [id number] Reading MD: Constantino Huggins Measurements Intervals [place] Rate: 94 P: 0 MS: 0 QRS: -8 QRSD: 166 T: 178 QT: 403 QTc: 505 Interpretive Statements Atrial fibrillation Left bundle branch block Electronically Signed On 03-30-2025 10:52:15 PST by Constantino Huggins Please click the below link to view image of tracing.
--- NOTE | 2025-03-26 02:43 | DVH ---
EXAM: CT HEAD WITHOUT CONTRAST INDICATION: ALOC TECHNIQUE: CT of the head without intravenous contrast. Radiation Dose : 1. Head: CT Dose: CTDI volume is 53.65 mGy. Dose-length product is 1076.49 mGy*cm The dose indicators for CT are the volume Computed Tomography (CT) Dose Index (CTDIvol) and the Dose Length Product (DLP), and are measured in units of mGy and mGy-cm, respectively. These indicators are not patient dose, but values generated from the CT scanner acquisition factors. The report includes radiation exposure data for exposures received during this examination. COMPARISON: CT HEAD WITHOUT CONTRAST on DOS: 01/17/23 FINDINGS: There is no evidence of acute intracranial hemorrhage, extra-axial collection, mass effect, midline shift, herniation or hydrocephalus. Increased prominence of the ventricles, sulci and cisterns consistent with sequelae of atrophic cortical volume loss. The knight-white differentiation is intact. Moderate diffuse confluent periventricular and subcortical white matter hypoattenuation is nonspecific but may be related to small vessel ischemic disease. The visualized paranasal sinuses and mastoid air cells are clear. The surrounding soft tissues and osseous structures are unremarkable. Endotracheal tube noted. IMPRESSION: 1. No acute intracranial abnormality. 2. Chronic sequelae of microangiopathy and atrophic cortical volume loss. Radiation optimization: All CT scans at this facility use at least one of these dose optimization techniques: automated exposure control mA and/or kV adjustment per patient size (includes targeted exams where dose is matched to clinical indication) or iterative reconstruction.
[2025-03-26 02:56] LABS: Base Excess -5.3 mmol/L (-2.0-3.0)
--- NOTE | 2025-03-26 02:59 | DVH ---
Exam: CT CT AB PEL WITH IV CON ONLY History: abd pain COMPARISON: CT CT AB PELVIS W WO CON-IV ONLY on DOS: 06/03/24, CT CT AB PEL WO CON-NO ORAL OR IV on DOS: 09/14/22 Technique: Multidetector spiral CT of the abdomen and pelvis was performed from lung bases to pubic symphysis. Intravenous contrast was administered during this examination. Portal venous imaging was obtained. Axial, coronal and sagittal multiplanar reformats were performed by the technologist on a separate workstation. Radiation Dose : 1. Abdomen/Pelvis: CTDIvol 8.13 mGy, DLP 434.08 mGy*cm. CONTRAST: Type of contrast: Omniscan 300 Contrast injected: 100 ml Findings: Lung Bases: Small bilateral pleural effusions, [id number]-left, with adjacent atelectasis. Diffuse bibasilar septal and interstitial thickening with moderate patchy infiltrate within the bilateral lower lobes and right middle lobe. Normal heart size. Cardiac pacing leads. No pericardial effusion. Liver: The liver is normal in size. No focal lesions. Normal hepatic vascular enhancement. Moderate periportal edema. Gallbladder and Biliary Tree: Unremarkable Spleen: Unremarkable Pancreas: The pancreas is normal in appearance without focal lesions or abnormal enhancement. Adrenal Glands: Unremarkable Kidneys: No hydronephrosis. Bladder: Unremarkable. Salas catheter. Bowel: The stomach is moderately distended with air-fluid level. Enteric catheter terminates within the gastric lumen. Moderate diffuse enhancing wall thickening of small and large bowel suggestive of sequelae of enterocolitis. Small bowel and colon are otherwise normal in caliber and distribution. The appendix is normal. Ascites: Absent Lymphadenopathy: No mesenteric, retroperitoneal or periportal lymphadenopathy. Abdominal Wall and Mesentery: Unremarkable. Vasculature: The visualized abdominal aorta is mildly ectatic and tortuous with extensive atherosclerotic vascular calcifications. Maximum transverse diameter of the infrarenal abdominal aorta is 2.2 cm. Abdominal and pelvic vessels demonstrate normal enhancement. Pelvic Organs: Unremarkable Musculoskeletal: No aggressive focal bony lesions, acute fractures or dislocation. IMPRESSION: 1. Moderate diffuse enhancing wall thickening of small and large bowel suggestive of sequelae of enterocolitis. 2. Moderate periportal edema. 3. Moderate gastric distention with air-fluid level. 4. Small bilateral pleural effusions, [id number]-[id number]-left, with adjacent atelectasis. 5. Diffuse bibasilar septal and interstitial thickening with moderate patchy infiltrate within the bilateral lower lobes and right middle lobe. Radiation optimization: All CT scans at this facility use at least one of these dose optimization techniques: automated exposure control mA and/or kV adjustment per patient size (includes targeted exams where dose is matched to clinical indication) or iterative reconstruction.
--- NOTE | 2025-03-26 04:14 | DVHHP2 ---
History of Present Illness Reason for Visit: Shortness for breath History of Present Illness 84-year-old female presents for evaluation of shortness for breath. Patient was recently discharged a week ago after being admitted for shortness for breath and being intubated. Today family noted patient in respiratory distress and called EMS to bring the patient for evaluation. On arrival to the emergency department patient was placed on non-rebreather and subsequently had to be emergently intubated for airway protection. Past Medical History COPD, diabetes mellitus, hypertension, dyslipidemia, CHF, atrial fibrillation Past Surgical History Pacemaker, BTL Family History Hypertension and diabetes mellitus Smoke: <1 pack per day ALCOHOL: none Drugs: None Lives: with Family Review of Systems Review of Systems Unable to complete review of systems, patient is sedated and intubated. Allergies: Coded Allergies: NO KNOWN ALLERGIES (Unverified , 08/19/17) Medications Current Medications Medications Dose Ordered Sig/Long Route Start Time Stop Time Status Last Admin Dose Admin Propofol 100 ml @ 1.527 mls/ hr Q24H IV 03/26/25 00:15 03/26/25 00:30 1.527 MLS/HR Exam Vital Signs Vital Signs Date Time Temp Pulse Resp B/P (MAP) Pulse Ox O2 Delivery O2 Flow Rate FiO2 03/26/25 03:00 89 20 156/76 (102) 100 03/26/25 02:16 100 03/26/25 02:15 Mechanical Ventilator+ 03/26/25 00:40 98.4 98.4 03/26/25 00:07 15 Exam Gen: 84-year-old female in mild distress. Skin: Warm, dry, normal color and texture, no rash. HEENT: Normocephalic atraumatic, mucous membranes moist and pink. Neck: Cervical and supraclavicular nodes normal without enlargement, trachea is midline, thyroid gland is normal without masses. Pulmonary: Intubated, diminished breath sounds bilaterally. Cardiac: Regular rate and rhythm. No murmur Abdomen: Soft, nontender, nondistended, bowel sounds present all 4 quadrants, no guarding, no rigidity, no organomegaly. Extremities: No cyanosis, clubbing, no edema Neuro: Sedated Labs/Xrays ORDERING PHYSICIAN: NGOC GRIGGS MD PROCEDURE(s): CXRP - CHEST PORTABLE REASON: intubation ORDER NUMBER(s): [id number], ACCESSION NUMBER(s): [id number] CHEST RADIOGRAPH Indication: intubation Technique: Single frontal view of the chest was obtained COMPARISON: XY CHEST XRAY 1 VIEW on DOS: 03/14/25, XY CHEST XRAY 1 VIEW on DOS: 03/14/25, XY CHEST XRAY 1 VIEW on DOS: 03/13/25, XY CHEST XRAY 1 VIEW on DOS: 03/11/25, XY CHEST XRAY 1 VIEW on DOS: 03/11/25 FINDINGS: Lines and Tubes: Status post intubation. Endotracheal tube tip projects approximately 5.6 cm above the level of the brii. Enteric catheter courses below the level of the diaphragm and terminates beyond the inferior margin of the image. Lungs: Diffuse bilateral pulmonary opacity and increased prominence of the pulmonary vasculature and interstitium. Pleura: No effusion. No pneumothorax. Cardiomediastinal contours: Unremarkable Bones: Unremarkable IMPRESSION: 1. Status post intubation. Endotracheal tube tip projects approximately 5.6 cm above the level of the brii. 2. Enteric catheter courses below the level of the diaphragm and terminates beyond the inferior margin of the image. 3. Diffuse bilateral pulmonary opacities with increased prominence of the pulmonary vasculature and interstitium. RING PHYSICIAN: NGOC GRIGGS MD PROCEDURE(s): ABPLIV - CT AB PEL WITH IV CON ONLY REASON: abd pain ORDER NUMBER(s): [id number], ACCESSION NUMBER(s): [id number] Exam: CT CT AB PEL WITH IV CON ONLY History: abd pain COMPARISON: CT CT AB PELVIS W WO CON-IV ONLY on DOS: 06/03/24, CT CT AB PEL WO CON-NO ORAL OR IV on DOS: 09/14/22 Technique: Multidetector spiral CT of the abdomen and pelvis was performed from lung bases to pubic symphysis. Intravenous contrast was administered during this examination. Portal venous imaging was obtained. Axial, coronal and sagittal multiplanar reformats were performed by the technologist on a separate workstation. Radiation Dose : 1. Abdomen/Pelvis: CTDIvol 8.13 mGy, DLP 434.08 mGy*cm. CONTRAST: Type of contrast: Omniscan 300 Contrast injected: 100 ml Findings: Lung Bases: Small bilateral pleural effusions, [id number]-left, with adjacent atelectasis. Diffuse bibasilar septal and interstitial thickening with moderate patchy infiltrate within the bilateral lower lobes and right middle lobe. Normal heart size. Cardiac pacing leads. No pericardial effusion. Liver: The liver is normal in size. No focal lesions. Normal hepatic vascular enhancement. Moderate periportal edema. Gallbladder and Biliary Tree: Unremarkable Spleen: Unremarkable Pancreas: The pancreas is normal in appearance without focal lesions or abnormal enhancement. Adrenal Glands: Unremarkable Kidneys: No hydronephrosis. Bladder: Unremarkable. Salas catheter. Bowel: The stomach is moderately distended with air-fluid level. Enteric catheter terminates within the gastric lumen. Moderate diffuse enhancing wall th ickening of small and large bowel suggestive of sequelae of enterocolitis. Small bowel and colon are otherwise normal in caliber and distribution. The appendix is normal. Ascites: Absent Lymphadenopathy: No mesenteric, retroperitoneal or periportal lymphadenopathy. Abdominal Wall and Mesentery: Unremarkable. Vasculature: The visualized abdominal aorta is mildly ectatic and tortuous with extensive atherosclerotic vascular calcifications. Maximum transverse diameter of the infrarenal abdominal aorta is 2.2 cm. Abdominal and pelvic vessels demonstrate normal enhancement. Pelvic Organs: Unremarkable Musculoskeletal: No aggressive focal bony lesions, acute fractures or dislocation. IMPRESSION: 1. Moderate diffuse enhancing wall thickening of small and large bowel suggestive of sequelae of enterocolitis. 2. Moderate periportal edema. 3. Moderate gastric distention with air-fluid level. 4. Small bilateral pleural effusions, [id number]-[id number]-left, with adjacent atelectasis. 5. Diffuse bibasilar septal and interstitial thickening with moderate patchy infiltrate within the bilateral lower lobes and right middle lobe. Radiation optimization: All CT scans at this facility use at least one of these dose optimization techniques: automated exposure control mA and/or kV adjustment per patient size (includes targeted exams where dose is matched to clinical indication) or iterative reconstruction. RING PHYSICIAN: NGOC GRIGGS MD PROCEDURE(s): HWOCT - HEAD WITHOUT CONTRAST REASON: ALOC ORDER NUMBER(s): [id number], ACCESSION NUMBER(s): [id number] EXAM: CT HEAD WITHOUT CONTRAST INDICATION: ALOC TECHNIQUE: CT of the head without intravenous contrast. Radiation Dose : 1. Head: CT Dose: CTDI volume is 53.65 mGy. Dose-length product is 1076.49 mGy*cm The dose indicators for CT are the volume Computed Tomography (CT) Dose Index (CTDIvol) and the Dose Length Product (DLP), and are measured in units of mGy and mGy-cm, respectively. These indicators are not patient dose, but values generated from the CT scanner acquisition factors. The report includes radiation exposure data for exposures received during this examination. COMPARISON: CT HEAD WITHOUT CONTRAST on DOS: 01/17/23 FINDINGS: There is no evidence of acute intracranial hemorrhage, extra-axial collection, mass effect, midline shift, herniation or hydrocephalus. Increased prominence of the ventricles, sulci and cisterns consistent with sequelae of atrophic cortical volume loss. The knight-white differentiation is intact. Moderate diffuse confluent periventricular and subcortical white matter hypoattenuation is nonspecific but may be related to small vessel ischemic disease. The visualized paranasal sinuses and mastoid air cells are clear. The surrounding soft tissues and osseous structures are unremarkable. Endotracheal tube noted. IMPRESSION: 1. No acute intracranial abnormality. 2. Chronic sequelae of microangiopathy and atrophic cortical volume loss. Radiation optimization: All CT scans at this facility use at least one of these dose optimization techniques: automated exposure control mA and/or kV adjustment per patient size (includes targeted exams where dose is matched to clinical indication) or iterative reconstruction. Labs Test 03/26/25 02:40 03/26/25 01:15 03/26/25 00:10 Range/Units Blood Gas Specimen Type Arterial Blood Gas Sample Site Left radial Blood Gas Patient Temperature 37.0 Arterial Blood Date Drawn [id number] Arterial Blood pH 7.205 *L 7.350-7.450 Arterial Blood Partial Pressure CO2 60.1 *H 32.0-45.0 mmHg Arterial Blood Partial Pressure O2 293.1 H 83.0-108.0 mmHg Arterial Blood HCO3 23.2 21.0-28.0 mmol/L Arterial Blood Oxygen Saturation 99.7 H 94.0-98.0 % Arterial Blood Base Excess -5.3 L -2.0-3.0 mmol/L Arterial Blood Oxyhemoglobin 98.5 H 94.0-98.0 % Arterial Blood Carboxyhemoglobin 0.6 0.5-1.5 % Arterial Blood Methemoglobin 0.6 0.0-1.5 % Adryan Test Modified Blood Gas Total Hemoglobin 11.80 L 12.0-16.0 g/dL Blood Gas Set Respiration Rate 20.0 Blood Gas Modality Vent - ac FiO2 % 100.0 Blood Gas Tidal Volume 400.0 Blood Gas PEEP or CPAP 5.0 Blood Gas Critical Value Read Back Yes Blood Gas Notified Whom Md jazmine griggs Blood Gas Notified Time [id number] Blood Gas Notified By Rt misael finley Sodium Level 136 136-145 mmol/L Potassium Level 4.7 3.5-5.1 mmol/L Chloride Level 102 98-107 mmol/L Carbon Dioxide Level 25 20-31 mmol/L Anion Gap 9 5-15 Blood Urea Nitrogen 18 9-23 mg/dL Creatinine 1.34 H 0.550-1.02 mg/dL Glomerular Filtration Rate Calc 39 >90 mL/min BUN/Creatinine Ratio 13.4 10.0-20.0 Serum Glucose 226 H 74-106 mg/dL Calcium Level 9.3 8.7-10.4 mg/dL Total Bilirubin 0.4 0.2-1.0 mg/dL Aspartate Amino Transferase (AST) 39 13-40 U/L Alanine Aminotransferase (ALT) 31 7-40 U/L Alkaline Phosphatase 114 46-116 U/L Troponin I High Sensitivity 9 </=34 ng/L Total Protein 6.8 5.7-8.2 g/dL Albumin 4.0 3.2-4.8 g/dL White Blood Count 22.0 H 4.4-10.8 10^3/uL Red Blood Count 3.99 L 4.0-5.20 10^6/uL Hemoglobin 10.8 L 12.2-16.2 g/dL Hematocrit 34.8 L 36.0-46.0 % Mean Corpuscular Volume 87.3 80.0-100.0 fL Mean Corpuscular Hemoglobin 27.1 L 28.0-32.0 pg Mean Corpuscular Hemoglobin Concent 31.1 L 32.0-36.0 g/dL Red Cell Distribution Width 18.7 H 11.8-14.3 % Platelet Count 470 H 140-450 10^3/uL Mean Platelet Volume 7.6 6.9-10.8 fL Neutrophils (%) (Auto) 82.0 H 37.0-80.0 % Lymphocytes (%) (Auto) 10.5 10.0-50.0 % Monocytes (%) (Auto) 5.9 0.0-12.0 % Eosinophils (%) (Auto) 1.2 0.0-7.0 % Basophils (%) (Auto) 0.4 0.0-2.0 % Neutrophils # (Auto) 18.1 H 1.6-8.6 10 ^3/uL Lymphocytes # (Auto) 2.3 0.4-5.4 10 ^3/uL Monocytes # (Auto) 1.3 0-1.3 10 ^3/uL Eosinophils # (Auto) 0.3 0-0.8 10 ^3/uL Basophils # (Auto) 0.1 0-0.2 10 ^3/uL Nucleated Red Blood Cells 0.1 % Prothrombin Time 11.1 9.3-11.8 sec Prothrombin Time INR 1.05 0.9-1.15 Activated Partial Thromboplast Time 26.7 24.5-34.5 SEC Lactic Acid Level 1.8 0.4-2.0 mmol/L SEPSIS Sepsis Screen Date sepsis recognized/suspect: Mar 26, 2025 Time Sepsis recognized/suspect: 214 Recent Procedure: No On Antibiotic Therapy: No Respiratory Rate >20: Yes Heart Rate >90: Yes Temp<36 C (96.8 F) or >38.3 C: No SBP <90 or MAP <65 mmHG: No New Acute Mental Status Change: No Is the patient on CPAP, BIPAP,: No Physician Orders Propofol (Diprivan) (03/26/25 00:15) Rass Sedation Scale Q1HR (03/26/25 00:14) Chest Portable (03/26/25 00:18) Head Without Contrast (03/26/25 00:22) Ct Ab Pel With Iv Con Only (03/26/25 00:22) Ventilator Orders (03/26/25 00:25) Abg W/ Co-Ox (03/26/25 01:00) Respiratory Culture W/ Gs (03/26/25 00:25) Blood Culture (03/26/25 00:23) Ventilator Orders (03/26/25 02:40) Albuterol Medneb (Ventolin Medneb) (03/26/25 04:15) Cefepime 1 Gm (03/26/25 10:00) Vancomycin (03/26/25 04:15) NS (03/26/25 04:15) Hydralazine Injection (Apresoline Inject (03/26/25 04:15) Amiodarone Tablet (Cordarone Tablet) (03/26/25 10:00) Glucose Blood (Accu-Chek Comfort Curve T (03/26/25 06:00) Mild Sliding Scale Npo - Q6hr (03/26/25 06:00) Dextrose 50% Syringe (03/26/25 04:15) Admit (03/26/25 04:05) Ondansetron Hcl (Zofran) (03/26/25 04:15) Complete Blood Count (03/27/25 04:00) Comprehensive Metabolic Panel (03/27/25 04:00) Npo (Nothing By Mouth) Diet (03/26/25 Breakfast) Condition: Critical (03/26/25 04:05) Enoxaparin Sodium (Lovenox) (03/26/25 10:00) Acetaminophen Tablet (Tylenol Tablet) (03/26/25 04:15) Maintain Bed Rest (03/26/25 04:05) Sequential Compression Device (03/26/25 ) Nitroglycerin Sublingual (Ntrostat Subli (03/26/25 04:15) Morphine Sulfate Injection (03/26/25 04:15) Stat Ekg For Chest Pain (03/26/25 04:05) Notify Md Of Changes From Base (03/26/25 04:05) Farm Service Consultant For 24 Hours (03/26/25 04:05) Emergency Dysrhythmia Protocol (03/26/25 04:05) Rhythm Strips Once Every Shift (03/26/25 04:05) Oxygen By Nasal Cannula (03/26/25 04:05) Abg W/ Co-Ox (03/26/25 06:00) Vital Signs Date Time Temp Pulse Resp B/P (MAP) Pulse Ox O2 Delivery O2 Flow Rate FiO2 03/26/25 03:00 89 20 156/76 (102) 100 03/26/25 02:45 90 20 153/74 (100) 100 03/26/25 02:30 86 20 157/74 (101) 100 03/26/25 02:29 94 03/26/25 02:16 96 20 153/75 (101) 100 100 03/26/25 02:15 91 21 100 Mechanical Ventilator+ 100 100 03/26/25 02:15 92 19 153/75 (101) 100 03/26/25 01:30 166/78 03/26/25 01:30 100 19 166/78 (107) 100 03/26/25 01:15 95 19 166/84 (111) 100 03/26/25 01:00 109 19 172/84 (113) 100 03/26/25 00:45 109 19 159/87 (111) 100 03/26/25 00:40 98.4 98.4 03/26/25 00:30 98 10 139/82 (101) 100 03/26/25 00:30 139/82 03/26/25 00:19 95 20 126/61 (82) 100 100 03/26/25 00:17 100 13 126/61 (82) 93 03/26/25 00:16 144/73 03/26/25 00:09 97.1 94 28 144/73 92 97.1 03/26/25 00:07 103 31 144/73 (96) 86 03/26/25 00:07 103 31 86 Non-Rebreather 15 N/A Laboratory Tests Test 03/26/25 00:10 Lactic Acid Level 1.8 mmol/L (0.4-2.0) White Blood Count 22.0 10^3/uL (4.4-10.8) H Medications Medications Dose Ordered Sig/Long Route Start Time Stop Time Status Last Admin Dose Admin Azithromycin 250 ml @ 125 mls/hr ONCE ONCE IV 03/26/25 00:30 03/26/25 02:29 DC 03/26/25 00:20 125 MLS/HR Etomidate 10 mg ONCE ONCE IV 03/26/25 00:15 03/26/25 00:16 DC 03/26/25 00:16 10 MG Piperacillin Sod/ Tazobactam Sod 100 ml @ 100 mls/hr ONCE ONCE IV 03/26/25 00:30 03/26/25 01:29 DC 03/26/25 00:50 100 MLS/HR Propofol 100 ml @ 1.527 mls/ hr Q24H IV 03/26/25 00:15 03/26/25 00:30 1.527 MLS/HR Sodium Chloride 1,700 ml @ 1,700 mls/hr ONCE ONCE IV 03/26/25 00:30 03/26/25 01:29 DC 03/26/25 00:56 1,700 MLS/HR Assessment/Plan Assessment/Plan Assessment Acute on chronic hypoxic/hypercapnic respiratory failure COPD exacerbation Possible pneumonia Leukocytosis Acute kidney injury Diabetes mellitus Plan Admit the patient to ICU to the hospitalist Cefepime/vancomycin Med nebs Continue treatment per orders Total critical care time excluding procedures performed this 55 minutes. Plan discussed with: Other My Orders Orders - LINDA WELLS Procedure Category Date Status Time Albuterol Medneb PHA 03/26/25 Verified (Ventolin Medneb) 04:15 Cefepime 1 Gm PHA 03/26/25 Verified 10:00 Vancomycin PHA 03/26/25 Verified 04:15 NS PHA 03/26/25 Verified 04:15 Hydralazine Injection PHA 03/26/25 Verified (Apresoline Inject 04:15 Amiodarone Tablet PHA 03/26/25 Verified (Cordarone Tablet) 10:00 Glucose Blood PHA 03/26/25 Verified (Accu-Chek Comfort 06:00 Mild Sliding Scale PHA 03/26/25 Verified Npo - Q6hr 06:00 Dextrose 50% Syringe PHA 03/26/25 Verified 04:15 Admit ADMIT 03/26/25 Verified 04:05 Ondansetron Hcl PHA 03/26/25 Verified (Zofran) 04:15 Complete Blood Count LAB 03/27/25 Verified 04:00 Comprehensive LAB 03/27/25 Verified Metabolic Panel 04:00 Npo (Nothing By DIET 03/26/25 Verified Mouth) Diet Breakfast Condition: Critical JOSUE 03/26/25 Verified 04:05 Enoxaparin Sodium PHA 03/26/25 Verified (Lovenox) 10:00 Acetaminophen Tablet PHA 03/26/25 Verified (Tylenol Tablet) 04:15 Maintain Bed Rest JOSUE 03/26/25 Verified 04:05 Sequential JOSUE 03/26/25 Verified Compression Device Nitroglycerin PHA 03/26/25 Verified Sublingual (Ntrostat 04:15 Morphine Sulfate PHA 03/26/25 Verified Injection 04:15 Stat Ekg For Chest JOSUE 03/26/25 Verified Pain 04:05 Notify Of Changes [facility] 03/26/25 Verified From Base 04:05 Farm Service Consultant For [facility] 03/26/25 Verified 24 Hours 04:05 Emergency Dysrhythmia [facility] 03/26/25 Verified Protocol 04:05 Rhythm Strips Once [facility] 03/26/25 Verified Every Shift 04:05 Oxygen By Nasal 03/26/25 Verified Cannula 04:05 Abg W/ Co-Ox RT 03/26/25 Transmitted 06:00 Date of Service: Mar 26, 2025 Billing Provider: LINDA WELLS Common Visit Codes: [id number] CARE 30-74 MIN LINDA WELLS Mar 26, 2025 04:14
[2025-03-26] MEDS: SODIUM CHLORIDE 0.9% 1,000 ML IV ONE (04:15)
[2025-03-26] MEDS ORDERED: MORPHINE SULFATE INJ 2 MG/ml SYRG IV PRN (04:15)
[2025-03-26] MEDS ORDERED: NITROGLYCERIN 0.4 MG SL TAB SL PRN (04:15)
[2025-03-26] MEDS ORDERED: DEXTROSE (50%) 50ML SYRG IV PRN (04:15)
[2025-03-26] MEDS ORDERED: VANCOMYCIN PER PHARMACY 0 MG IV SCH (04:15)
[2025-03-26] MEDS ORDERED: ALBUTEROL SULF 2.5 MG/0.5ML(0.5%) NEB SOLN NEB PRN (04:15)
[2025-03-26] MEDS: VANCOMYCIN 1GM/200ML PM 200 ML IV ONE (04:30)
[2025-03-26] MEDS: MIDAZOLAM DRIP 100 mg/100mL NS 100 ML IV SCH (05:00)
[2025-03-26] MEDS: MIDAZOLAM DRIP 100 mg/100mL NS 100 ML IV ONE (05:18)
[2025-03-26] MEDS: InsuLIN REG 1unit/0.01ml Soln (100units/ml) SC SCH (06:00)
[2025-03-26] MEDS: ACCU-CHEK COMFORT CURVE STRIP VI SCH (06:26)
[2025-03-26] MEDS: PHENYLEPHRINE IV 250 ML IV SCH (06:30)
[2025-03-26 08:00] LABS: Base Excess -4.6 mmol/L (-2.0-3.0)
[2025-03-26 08:08] LABS: Urine Protein, UAD TRACE (Negative)
[2025-03-26] MEDS: CEFEPIME 1GM/50ML 50 ML IV SCH (11:29)
[2025-03-26] MEDS: ENOXAPARIN SOD 30 MG/0.3 ML SYRINGE SC SCH (11:30)
[2025-03-26] MEDS: AMIODARONE HCL 200 MG TAB NG SCH (11:34)
[2025-03-26] MEDS: fentaNYL Drip 2500mCg/250mlNS 250 ML IV SCH (11:38)
[2025-03-26] MEDS: VANCOMYCIN 1GM/250ML KIT 250 ML IV ONE (11:54)
--- NOTE | 2025-03-26 14:30 | DVHPN2 ---
Progress Note Date Seen: Mar 26, 2025 Has the PT tested + for MRSA If YES, has PT been informed?: No Medical Necessity Reason Pt with a Central, PICC or Fol: Yes The following are medically ne: Nova Catheter Reason for nova catheter: Strict I&O Subjective Patient reports: No new complaints Review of Systems: HEENT:Normal, CVS:Normal, RESPIRATORY:Normal, GI:Normal, :Normal, MSK:Normal, NEURO:Normal Objective vital signs Vital Sign Date Time Temp Pulse Resp B/P (MAP) Pulse Ox O2 Delivery O2 Flow Rate FiO2 03/26/25 09:50 73 24 100/55 (70) 95 30 03/26/25 06:45 99.1 99.1 03/26/25 02:15 Mechanical Ventilator+ 03/26/25 00:07 15 Total Intake and Output 03/25/25 03/25/25 03/26/25 15:00 23:00 07:00 Intake Total 1149.595 ml Balance 1149.595 ml medications Current Medications Medications Dose Ordered Sig/Long Route Start Time Stop Time Status Last Admin Dose Admin Albuterol 2.5 mg Q6HPRN PRN NEB 03/26/25 04:15 Cefepime HCl 50 ml @ 12.5 mls/hr Q12HR IV 03/26/25 10:00 03/26/25 11:29 12.5 MLS/HR Vancomycin HCl 0 ml @ 0 mls/hr PER PHARMACY IV 03/26/25 04:15 Hydralazine HCl 10 mg Q6HP PRN IV 03/26/25 04:15 Amiodarone HCl 200 mg DAILY NG 03/26/25 10:00 03/26/25 11:34 200 MG Diagnostic Test (Pha) 1 strip Q6HR 03/26/25 06:00 03/26/25 11:56 1 STRIP Insulin Human Regular Q6HR SC 03/26/25 06:00 Dextrose 50 ml UD PRN IV 03/26/25 04:15 Ondansetron HCl 4 mg Q4HP PRN IV 03/26/25 04:15 Enoxaparin Sodium 30 mg DAILY SC 03/26/25 10:00 03/26/25 11:30 30 MG Acetaminophen 650 mg Q6HP PRN PO 03/26/25 04:15 Nitroglycerin 0.4 mg Q5MINP PRN SL 03/26/25 04:15 Morphine Sulfate 2 mg Q30M PRN IV 03/26/25 04:15 Midazolam HCl 100 ml @ 1 mls/hr Q24H IV 03/26/25 05:00 03/26/25 05:00 1 MLS/HR Phenylephrine HCl 250 ml @ 30 mls/hr Q8H20M IV 03/26/25 06:30 Fentanyl Citrate 250 ml @ 2.5 mls/hr Q24H IV 03/26/25 06:30 03/26/25 11:38 2.5 MLS/HR Pantoprazole Sodium 40 mg DAILY IV 03/27/25 10:00 UNV Ipratropium [place] 0.5 mg Q6HR NEB 03/26/25 18:00 UNV Examination: GENERAL:Normal, HEENT:Normal, NECK:Normal, LUNGS:Normal, LUNGS:Abnormal (intubated), CVS:Normal, ABDOMEN:Normal, MSK:Normal, SKIN:Normal, NEURO:Normal, :Normal laboratory and microbiology Laboratory Tests 03/26/25 01:15 03/26/25 00:10 Test 03/26/25 01:15 Range/Units Serum Glucose 226 H 74-106 mg/dL Problem List/Assessment/Plan Problem List/Assessment/Plan Acute metabolic encephalopathy: sedated Acute on chronic HFpEF: lasix iv Acute on chronic hypoxic and hypercapnic respiratory failure: cont acv Pneumonia Gram-positive versus negative with sepsis: iv antibiotics, iv levaquin- recent s maltophila Pulmonary hypertension Chronic obstructive pulmonary disease exacerbation: bronchodilators Normocytic, normochromic anemia Diabetes mellitus type 2: ssi Dyslipidemia ckd stage 3 a fib: on amiodarone s/p pacer Plan discussed with: Spouse My Orders My Orders Orders - LINDA FLORES MD Procedure Category Date Status Time * Picc Line Consult CONS 03/26/25 Transmitted 14:20 * Cardiology Consult CONS 03/26/25 Transmitted 14:20 Furosemide Injection PHA 03/26/25 Logged (Lasix Injection) 14:30 Pantoprazole PHA 03/26/25 Logged (Protonix) 14:30 Pantoprazole PHA 03/27/25 Logged (Protonix) 10:00 Ipratropium Medneb PHA 03/26/25 Logged (Atrovent Medneb) 18:00 Basic Metabolic Panel LAB 03/27/25 Verified 06:00 B-Type Natriuretic LAB 03/27/25 Verified Peptide 05:00 Complete Blood Count LAB 03/27/25 Verified 06:00 Chest Portable XY 03/27/25 Logged 06:00 Abg W/ Co-Ox RT 03/27/25 Logged 06:00 Critical Care Time (mins): 58 (critical care time excluding procedures is 58 mins) Date of Service: Mar 26, 2025 Billing Provider: LINDA FLORES MD Common Visit Codes: [id number] CARE 30-74 MIN LINDA FLORES MD Mar 26, 2025 14:30
[2025-03-26] MEDS: PANTOPRAZOLE 40 MG/10 ML VIAL INJ IV ONE (15:53)
[2025-03-26] MEDS: FUROSEMIDE 20 MG/2 ML VIAL IV ONE (15:53)
[2025-03-26] MEDS: IPRATROPIUM BROM 0.5 MG/2.5ML INH SOL NEB SCH (19:24)
[2025-03-27] VITALS (91 sets, daily range): BP systolic 97–149; BP diastolic 46–70; PULSE 67–114; RESP 11–26; TEMP 97–100.6; O2SAT 87–100
[2025-03-27 07:18] LABS: Base Excess -2.8 mmol/L (-2.0-3.0)
[2025-03-27 07:56] LABS: Hematocrit 28.8 % (36.0-46.0); Hemoglobin 9.3 g/dL (12.2-16.2); Mean Corpuscular Hemoglobin 27.1 pg (28.0-32.0); Mean Corpuscular Volume 84.1 fL (80.0-100.0); Nucleated Red Blood Cells % 0.0 %
[2025-03-27 08:14] LABS: Alanine Aminotransferase 38 U/L (7-40); Albumin 3.4 g/dL (3.2-4.8); Alkaline Phosphatase 77 U/L (46-116); Anion Gap 10 (5-15); BUN/Creatinine Ratio 14.0 (10.0-20.0); Bilirubin, Total 0.4 mg/dL (0.2-1.0); Blood Urea Nitrogen 18 mg/dL (9-23); Carbon Dioxide 25 mmol/L (20-31); Chloride 104 mmol/L (98-107); Glucose 88 mg/dL (74-106); Potassium 4.2 mmol/L (3.5-5.1); Sodium 139 mmol/L (136-145); Total Protein 5.8 g/dL (5.7-8.2)
[2025-03-27 08:18] LABS: Calcium 8.4 mg/dL (8.7-10.4)
--- NOTE | 2025-03-27 09:08 | DVH ---
EXAM: XY CHEST PORTABLE Indication: chf Technique: Single frontal view of the chest was obtained Comparison: XY CHEST PORTABLE on DOS: 03/26/25, XY CHEST XRAY 1 VIEW on DOS: 03/14/25, XY CHEST XRAY 1 VIEW on DOS: 03/14/25, XY CHEST XRAY 1 VIEW on DOS: 03/13/25, XY CHEST XRAY 1 VIEW on DOS: 03/11/25 FINDINGS: Lines and Tubes: Endotracheal tube projects 6 cm above the brii. Cardiac pacemaker projects over left chest wall. Enteric tube tip projects over the expected region of the stomach. Lungs: Improving pulmonary edema. Pleura: No effusion. No pneumothorax. Cardiomediastinal contours: Unremarkable Bones: No acute osseous abnormality. IMPRESSION: Improving pulmonary edema compared to prior exam.
[2025-03-27] MEDS: PANTOPRAZOLE 40 MG/10 ML VIAL INJ IV SCH (09:49)
[2025-03-27] MEDS: FUROSEMIDE 20 MG/2 ML VIAL IV ONE (11:23)
[2025-03-27] MEDS: VANCOMYCIN 750MG KIT 100 ML IV ONE (11:28)
--- NOTE | 2025-03-27 11:46 | DVHPNRES ---
Progress Note Date Seen: Mar 27, 2025 Resident Creating Document: MARIELY PORTER RESIDENT Has the PT tested + for MRSA If YES, has PT been informed?: No Medical Necessity Reason Pt with a Central, PICC or Fol: Yes The following are medically ne: Nova Catheter Reason for nova catheter: Strict I&O Subjective Review of Systems Patient is 54-year-old female for history of pulmonary artery hypertension, HFrEF, COPD, sick sinus syndrome status post pacemaker, atrial fibrillation, diabetes mellitus, hyperlipidemia, hypertension who brought to the hospital with a chief complaint of shortness of breath. Patient was recently in the hospital due to shortness of breath, difficulty breathing, low oxygen saturation at 33%. As per daughter she started suddenly had trouble breathing, and then called 911. Patient was intubated on 03/26/2025. Past surgical history: bilateral tubal ligation Family history: Reviewed, noncontributory Personal history: Smoker, no history of alcohol or drug use. CKD STAGE II 03/27/25: Patient seen in ICU. Patient is mechanically ventilated, intubated, but is able to open her eyes, follow commands, chest x-ray looks better today. She is on minimal vent settings. CPAP tomorrow. Objective vital signs Vital Sign Date Time Temp Pulse Resp B/P (MAP) Pulse Ox O2 Delivery O2 Flow Rate FiO2 03/27/25 10:20 70 24 119/50 (73) 96 30 03/27/25 10:00 Mechanical Ventilator+ 03/27/25 07:15 98.2 98.2 03/27/25 06:00 0 Total Intake and Output 03/26/25 03/26/25 03/27/25 15:00 23:00 07:00 Intake Total 95.0 ml 562.5 ml 162.5 ml Output Total 1000 ml 850 ml Balance 95.0 ml -437.5 ml -687.5 ml medications Current Medications Medications Dose Ordered Sig/Long Route Start Time Stop Time Status Last Admin Dose Admin Albuterol 2.5 mg Q6HPRN PRN NEB 03/26/25 04:15 Vancomycin HCl 0 ml @ 0 mls/hr PER PHARMACY IV 03/26/25 04:15 Hydralazine HCl 10 mg Q6HP PRN IV 03/26/25 04:15 Amiodarone HCl 200 mg DAILY NG 03/26/25 10:00 03/27/25 09:49 200 MG Diagnostic Test (Pha) 1 strip Q6HR 03/26/25 06:00 03/27/25 05:34 1 STRIP Insulin Human Regular Q6HR SC 03/26/25 06:00 Dextrose 50 ml UD PRN IV 03/26/25 04:15 Ondansetron HCl 4 mg Q4HP PRN IV 03/26/25 04:15 Enoxaparin Sodium 30 mg DAILY SC 03/26/25 10:00 03/27/25 09:49 30 MG Acetaminophen 650 mg Q6HP PRN PO 03/26/25 04:15 Nitroglycerin 0.4 mg Q5MINP PRN SL 03/26/25 04:15 Morphine Sulfate 2 mg Q30M PRN IV 03/26/25 04:15 Midazolam HCl 100 ml @ 1 mls/hr Q24H IV 03/26/25 05:00 03/26/25 05:00 1 MLS/HR Phenylephrine HCl 250 ml @ 30 mls/hr Q8H20M IV 03/26/25 06:30 Fentanyl Citrate 250 ml @ 2.5 mls/hr Q24H IV 03/26/25 06:30 03/26/25 11:38 2.5 MLS/HR Pantoprazole Sodium 40 mg DAILY IV 03/27/25 10:00 03/27/25 09:49 40 MG Ipratropium [place] 0.5 mg Q6HR NEB 03/26/25 18:00 03/27/25 06:07 0.5 MG Levofloxacin 50 ml @ 50 mls/hr DAILY IV 03/27/25 10:00 03/27/25 09:49 50 MLS/HR Examination General: Intubated, mechanically ventilated but is able to open her eyes and follow commands. HEENT: Normocephalic, atraumatic, moist mucous membranes Respiratory/pulmonary: Clear lungs bilaterally, vesicular murmurs present in almost all lung hoskins, no associated crackles or wheezes. Cardiovascular: Normal heart sounds S1 and S2 with no associated murmurs Abdomen: Abdomen nondistended, there is no pain to palpation in any of the abdominal quadrants, no palpable masses. Extremities: There is no peripheral edema present at the lower extremities. Peripheral Pulses: 3+ Radial (R). 3+ Radial (L). 3+ Dorsalis pedis (R). 3+ Dorsalis pedis(L) Skin: No rashes or pruritus, there is no sacral edema present at this time. Neurological: Intact cranial nerves with no focal neurologic deficits laboratory and microbiology Laboratory Tests 03/27/25 07:18 Test 03/27/25 07:18 Range/Units Serum Glucose 88 74-106 mg/dL Microbiology Date/Time Source Procedure Growth Status 03/26/25 00:40 Trachea Gram Stain - Final Resulted 03/26/25 00:40 Trachea Respiratory Culture - Preliminary Resulted 03/26/25 00:12 Blood Blood Culture - Preliminary NO GROWTH AFTER 24 HOURS OF INCUBATION. Resulted Problem List/Assessment/Plan Problem List/Assessment/Plan Neurology Acute metabolic encephalopathy - Stable -intubated, sedated Cardiology Acute HFpEF Paroxysmal atrial fibrillation History of hypertension -IV Lasix 20 mg BID -continue to monitor electrolytes: Magnesium, potassium. -echocardiogram on 11/19/2024: Ejection fraction greater than 55%, left and right atrial enlargement -amiodarone 200 mg q.12. Patient used to take Eliquis before, given history of bleeding. Patient is only on Plavix. -Plavix 75 mg daily -cardiology consultation -strict I&O -BNP: 354 -Ivabrandine and digoxin by head waiter/waitress banquet Respiratory Acute on chronic hypoxic and hypercapnic respiratory failure -ventilation: Respiratory rate 20, tidal volume 400, FiO2 35%, peep five. -IV antibiotic with vancomycin, levofloxacin - blood culture ordered -albuterol 2.5 mg nebulization q.6 Pneumonia Gram-positive versus negative -see the management of respiratory failure Pulmonary hypertension -avoid any antihypertensive medication Chronic obstructive pulmonary disease exacerbation -continue management of respiratory failure Renal/ Electrolytes CKD STAGE II Infection Septic shock ?due to pneumonia Gram-positive versus negative -IV antibiotic with cefepime -maintain map greater than 65 -respiratory culture growing young colonies -urinalysis no signs of active UTI. Hematology Normocytic, normochromic anemia -hemoglobin 11.3 -continue to monitor. -iron panel Endocrine Diabetes mellitus type 2 HGB A1c 6% on 03/12/2025 Dyslipidemia -Insulin sliding scale Lines: 2 peripheral IV lines Nova catheter Extubated on 03/14/2025 PUD prophylaxis with Protonix DVT prophylaxis with Lovenox Critical care time spent greater than 84 minute. Plan discussed with Dr. Hidalgo Plan discussed with: Daughter Dietary Evaluation Review Comments: 1. Protein Adjustment: Recommend lower protein intake at ~1 g/kg ABW to support CKD Stage 3 status and reduce renal workload. 2. Enteral Nutrition (EN) If GI tract is accessible, initiate tube feeding (TF): Formula: Glucerna Rate: 40 mL/hr (continuous) Provides: Protein: ~58 g/day (98% of estimated needs) Energy: ~1152 kcal/day (118% of estimated needs) 3. Monitoring & Follow-Up Labs: Monitor renal panel, electrolytes, and relevant nutrition markers. Consults: Follow nephrology and GI recommendations. Reassess PRN: Adjust feeding regimen based on tolerance, labs, and clinical status. Expected Outcomes/Goals: Improing nutrition status, able to have PO feedings with gradual wt gain. MARIELY PORTER RESIDENT Mar 27, 2025 11:46
--- NOTE | 2025-03-27 12:57 | DVHPN2 ---
Progress Note - Dictate Date Seen: Mar 26, 2025 Has the PT tested + for MRSA If YES, has PT been informed?: No Medical Necessity Reason Pt with a Central, PICC or Fol: Yes The following are medically ne: Nova Catheter Reason for nova catheter: Strict I&O Subjective DILATED/ ISCHEMIC CM EFrEF ACUTE DECOMPENSATION S/P DUAL CHAMBER AICD S/P PTCA STENT DIAGONAL HX OF AFIB ACUTE RESP ARREST HYPOCAPNIA COPD DIABETES HTN CKD STAGE II CT OF ABD ENTEROCOLITIS SBO CT HEAD NEGATIVE FOR ACUTE PATHOLOGY CXR POSITIVE INFILTRATE vital signs Vital Sign Date Time Temp Pulse Resp B/P (MAP) Pulse Ox O2 Delivery O2 Flow Rate FiO2 03/27/25 12:30 98.6 70 24 119/52 (74) 94 209.5 03/27/25 12:01 30 03/27/25 12:00 Mechanical Ventilator+ 03/27/25 06:00 0 Total Intake and Output 03/26/25 03/26/25 03/27/25 15:00 23:00 07:00 Intake Total 95.0 ml 562.5 ml 162.5 ml Output Total 1000 ml 850 ml Balance 95.0 ml -437.5 ml -687.5 ml medications Current Medications Medications Dose Ordered Sig/Long Route Start Time Stop Time Status Last Admin Dose Admin Albuterol 2.5 mg Q6HPRN PRN NEB 03/26/25 04:15 Vancomycin HCl 0 ml @ 0 mls/hr PER PHARMACY IV 03/26/25 04:15 Hydralazine HCl 10 mg Q6HP PRN IV 03/26/25 04:15 Amiodarone HCl 200 mg DAILY NG 03/26/25 10:00 03/27/25 09:49 200 MG Diagnostic Test (Pha) 1 strip Q6HR 03/26/25 06:00 03/27/25 11:28 1 STRIP Insulin Human Regular Q6HR SC 03/26/25 06:00 Dextrose 50 ml UD PRN IV 03/26/25 04:15 Ondansetron HCl 4 mg Q4HP PRN IV 03/26/25 04:15 Enoxaparin Sodium 30 mg DAILY SC 03/26/25 10:00 03/27/25 09:49 30 MG Acetaminophen 650 mg Q6HP PRN PO 03/26/25 04:15 Nitroglycerin 0.4 mg Q5MINP PRN SL 03/26/25 04:15 Morphine Sulfate 2 mg Q30M PRN IV 03/26/25 04:15 Midazolam HCl 100 ml @ 1 mls/hr Q24H IV 03/26/25 05:00 03/26/25 05:00 1 MLS/HR Phenylephrine HCl 250 ml @ 30 mls/hr Q8H20M IV 03/26/25 06:30 Fentanyl Citrate 250 ml @ 2.5 mls/hr Q24H IV 03/26/25 06:30 03/26/25 11:38 2.5 MLS/HR Pantoprazole Sodium 40 mg DAILY IV 03/27/25 10:00 03/27/25 09:49 40 MG Ipratropium [place] 0.5 mg Q6HR NEB 03/26/25 18:00 03/27/25 12:01 0.5 MG Levofloxacin 50 ml @ 50 mls/hr DAILY IV 03/27/25 10:00 03/27/25 09:49 50 MLS/HR laboratory and microbiology Laboratory Tests 03/27/25 07:18 Test 03/27/25 07:18 Range/Units Serum Glucose 88 74-106 mg/dL Problem List DILATED/ ISCHEMIC CM EFrEF ACUTE DECOMPENSATION S/P DUAL CHAMBER AICD S/P PTCA STENT DIAGONAL HX OF AFIB ACUTE RESP ARREST HYPOCAPNIA COPD DIABETES HTN CKD STAGE II CT OF ABD ENTEROCOLITIS SBO CT HEAD NEGATIVE FOR ACUTE PATHOLOGY CXR POSITIVE INFILTRATE Assessment/Plan RESP STATUS IMPROVED BUT STILL APNEIC NEURO EXAM CONT SUPPORTIVE THERAPY DIURESIS DIG CORLANOR MONITOR k IV FLUID ABX Dietary Evaluation Review Comments: 1. Protein Adjustment: Recommend lower protein intake at ~1 g/kg ABW to support CKD Stage 3 status and reduce renal workload. 2. Enteral Nutrition (EN) If GI tract is accessible, initiate tube feeding (TF): Formula: Glucerna Rate: 40 mL/hr (continuous) Provides: Protein: ~58 g/day (98% of estimated needs) Energy: ~1152 kcal/day (118% of estimated needs) 3. Monitoring & Follow-Up Labs: Monitor renal panel, electrolytes, and relevant nutrition markers. Consults: Follow nephrology and GI recommendations. Reassess PRN: Adjust feeding regimen based on tolerance, labs, and clinical status. Expected Outcomes/Goals: Improing nutrition status, able to have PO feedings with gradual wt gain. Plan discussed with: Daughter, Other WILEY SALINAS MD Mar 27, 2025 12:57
[2025-03-27 13:23] LABS: COVID19 ANTIGEN SOFIA FIA NEGATIVE (NEGATIVE)
[2025-03-27] MEDS ORDERED: Glucerna 1.2 Cal 1Liter BOTTLE GT SCH (16:00)
--- NOTE | 2025-03-27 16:07 | DVHINCON2 ---
Date of service: Mar 27, [address] Lee Reason for Consultation Acute kidney injury History of Present Illness Patient is a 84-year-old female with past medical history significant for COPD, diabetes mellitus, hypertension, dyslipidemia, CHF, atrial fibrillation, Chronic Kidney Disease stage 3 and chronic respiratory failure on home O2 is admitted for worsening shortness of breath and hypoxemia. Patient is intubated on the ventilator. On admission patient found to have elevated BUN creatinine nephrology is consulted for medical clearance for PICC line Past Medical History COPD, diabetes mellitus, hypertension, dyslipidemia, CHF, atrial fibrillation Past Surgical History Pacemaker Allergies: Coded Allergies: NO KNOWN ALLERGIES (Unverified , 08/19/17) Home Meds Active Scripts Sulfamethoxazole-Trimethoprim (Bactrim) 1 Tab Tab, 1 TAB PO BID, #14 TAB Prov:LAURO SANTIZO RESIDENT 03/19/25 Amoxicillin & Pot Clavulanate (AUGMENTIN TABLET) 875 Mg Tb, 875 MG PO Q12HR for 5 Days, #10 TAB Prov:LAURO SANTIZO RESIDENT 03/16/25 Blood Glucose Monitoring Suppl (EASY TOUCH GLUCOSE MONITO) Monitor Kit, AC XX, #1 ACHS Prov:NICOLLE PRETTY RESIDENT 08/20/23 Clopidogrel Bisulfate (CLOPIDOGREL) 75 Mg Tab, 75 MG PO DAILY for 30 Days, #30 TAB Prov:NICOLLE PRETTY RESIDENT 08/20/23 Ascorbic Acid (VITAMIN C TABLET) 500 Mg Tb, 500 MG PO BID for 30 Days, #60 TAB Prov:NICOLLE PRETTY RESIDENT 08/20/23 Reported Medications Albuterol Sulfate (Albuterol Sulfate Hfa) 108 Mcg/Act Aer, 2 PUFF IN Q6HP PRN for SHORTNESS OF BREATH, AER 08/03/23 Metoprolol Tartrate (Lopressor) 25 Mg Tb, 25 MG PO Q12HR, TAB 08/03/23 Dapagliflozin Propanediol (Farxiga) 10 Mg Tab, 5 MG PO DAILY, TAB 07/16/23 Umeclidinium-Vilanterol (Anoro Ellipta 62.5-25 Mcg/INH) 1 Aer Aer, 1 AER IN, AER 02/09/23 Hydrochlorothiazide W/Triamter (Dyazide 37.5/25MG) 1 Cap Cp, 1 CAP PO DAILY 01/17/23 Amiodarone Hcl (Amiodarone Hcl) 200 Mg Tab, 200 MG PO DAILY for ARRYTHMIA 09/14/22 Donepezil Hydrochloride (DONEPEZIL HCL) 10 Mg Tab, 1 TAB PO DAILY@DINNER 05/27/21 Atorvastatin Calcium (Lipitor) 10 Mg Tab, 1 TAB PO QPM for HIGH CHOLESTEROL 05/27/21 Current Medications Current Medications Medications (Trade) Dose Ordered Sig/Long Route PRN Reason Start Time Stop Time Status Last Admin Albuterol (Ventolin Medneb) 2.5 mg Q6HR NEB 03/27/25 18:00 03/28/25 06:56 Clopidogrel Bisulfate (Plavix) 75 mg DAILY PO 03/28/25 10:00 03/28/25 09:04 Ivabradine (Corlanor) 5 mg BID PO 03/27/25 22:00 03/28/25 09:03 Enteral Nutritional Formula (Glucerna 1.2 Praneeth) 1,000 ml 40ML/HR GT 03/27/25 16:00 Family History: Diabetes mellitus G8 MOTHER G8 FATHER, Onset:Unknown Hypertension Review of Systems Can not be obtained H&P Exam Vital Signs/I&O Vital Sign Date Time Temp Pulse Resp B/P (MAP) Pulse Ox O2 Delivery O2 Flow Rate FiO2 03/28/25 10:16 128/53 03/28/25 10:15 76 24 99 03/28/25 09:15 98.2 208.8 03/28/25 08:03 40 03/28/25 05:52 Mechanical Ventilator+ 03/27/25 06:00 0 Intake and Output 03/27/25 03/28/25 19:00 07:00 Intake Total 402.5 ml 260.5 ml Output Total 460 ml 275 ml Balance -57.5 ml -14.5 ml Intake Oral 50 ml 60 ml IV Total 352.5 ml 162.5 ml Tube Feeding 38 ml Output Urine Total 450 ml 275 ml Gastric Drainage Total 10 ml Physical Exam Patient intubated on the ventilator Lungs distant breath sounds Cardiac exam regular rate and rhythm GI soft nontender Salas catheter Neuro patient is a sedated Labs/Diagnostic Data Labs/Diagnostic Data Laboratory Tests Test 03/28/25 07:14 03/28/25 02:42 03/27/25 18:33 03/27/25 16:15 Range/Units Blood Gas Specimen Type Arterial Blood Gas Sample Site Left radial Blood Gas Patient Temperature 37.0 Arterial Blood Date Drawn [id number] Arterial Blood pH 7.225 *L 7.350-7.450 Arterial Blood Partial Pressure CO2 54.3 H 32.0-45.0 mmHg Arterial Blood Partial Pressure O2 57.3 L 83.0-108.0 mmHg Arterial Blood HCO3 22.0 21.0-28.0 mmol/L Arterial Blood Oxygen Saturation 85.4 L 94.0-98.0 % Arterial Blood Base Excess -5.7 L -2.0-3.0 mmol/L Arterial Blood Oxyhemoglobin 84.7 L 94.0-98.0 % Arterial Blood Carboxyhemoglobin 0.4 L 0.5-1.5 % Arterial Blood Methemoglobin 0.4 0.0-1.5 % Adryan Test Modified Blood Gas Total Hemoglobin 9.50 L 12.0-16.0 g/dL Blood Gas Set Respiration Rate 24.0 Blood Gas Modality Vent - ac FiO2 % 35.0 Blood Gas Tidal Volume 400.0 Blood Gas PEEP or CPAP 5.0 Blood Gas Critical Value Read Back Yes Blood Gas Notified Whom Jesus grossman md Blood Gas Notified Time [id number] Blood Gas Notified By Tae lopez rrt White Blood Count 17.0 #H 4.4-10.8 10^3/uL Red Blood Count 3.71 L 4.0-5.20 10^6/uL Hemoglobin 10.1 L 12.2-16.2 g/dL Hematocrit 32.3 #L 36.0-46.0 % Mean Corpuscular Volume 87.2 80.0-100.0 fL Mean Corpuscular Hemoglobin 27.3 L 28.0-32.0 pg Mean Corpuscular Hemoglobin Concent 31.3 L 32.0-36.0 g/dL Red Cell Distribution Width 18.4 H 11.8-14.3 % Platelet Count 380 140-450 10^3/uL Mean Platelet Volume 7.1 6.9-10.8 fL Neutrophils (%) (Auto) 85.7 H 37.0-80.0 % Lymphocytes (%) (Auto) 2.4 L 10.0-50.0 % Monocytes (%) (Auto) 11.3 0.0-12.0 % Eosinophils (%) (Auto) 0.1 0.0-7.0 % Basophils (%) (Auto) 0.5 0.0-2.0 % Neutrophils # (Auto) 14.6 H 1.6-8.6 10 ^3/uL Lymphocytes # (Auto) 0.4 0.4-5.4 10 ^3/uL Monocytes # (Auto) 1.9 H 0-1.3 10 ^3/uL Eosinophils # (Auto) 0 0-0.8 10 ^3/uL Basophils # (Auto) 0.1 0-0.2 10 ^3/uL Nucleated Red Blood Cells 0.0 % Sodium Level 139 136-145 mmol/L Potassium Level 4.3 3.5-5.1 mmol/L Chloride Level 103 98-107 mmol/L Carbon Dioxide Level 21 20-31 mmol/L Anion Gap 15 5-15 Blood Urea Nitrogen 24 H 9-23 mg/dL Creatinine 1.18 H 0.550-1.02 mg/dL Glomerular Filtration Rate Calc 46 >90 mL/min BUN/Creatinine Ratio 20.3 H 10.0-20.0 Serum Glucose 87 74-106 mg/dL Calcium Level 9.1 8.7-10.4 mg/dL Magnesium Level 1.7 1.7 1.6-2.6 mg/dL Total Bilirubin 0.4 0.2-1.0 mg/dL Aspartate Amino Transferase (AST) 35 13-40 U/L Alanine Aminotransferase (ALT) 43 H 7-40 U/L Alkaline Phosphatase 87 46-116 U/L Total Protein 6.2 5.7-8.2 g/dL Albumin 3.8 3.2-4.8 g/dL Random Vancomycin Level 12.9 H 5-10 ug/mL Phosphorus Level 4.4 2.4-5.1 mg/dL Iron Level 16 L 50-170 ug/dL Total Iron Binding Capacity 264 250-425 ug/dL Percent Iron Saturation 6.1 L 15-50 % Ferritin 100.7 10-291 ng/mL B-Type Natriuretic Peptide 422.15 0-100 pg/mL Vitamin D 25-Hydroxy 46.2 30.0-100 ng/mL Parathyroid Hormone (Intact) 39.0 18.4-80.1 pg/mL Urine Color Light-yellow Yellow Urine Clarity Turbid H Clear Urine pH 5.0 5.0-9.0 Urine Specific [place] 1.016 1.001-1.035 Urine Protein Trace H Negative Urine Ketones Negative Negative Urine Blood Negative Negative /uL Urine Nitrite Negative Negative Urine Bilirubin Negative Negative Urine Urobilinogen Normal Negative mg/dL Urine Leukocyte Esterase Negative Negative /uL Urine RBC 1 0 - 4 /hpf Urine Microscopic WBC 9 H 0-5 /HPF Urine Squamous Epithelial Cells None seen <5 /hpf Urine Bacteria Few H None Seen /hpf Urine Mucus Few None Seen Urine Creatinine 56.51 30.0-125.0 mg/dL Urine Protein/Creatinine Ratio 0.88 Urine Sodium 29 L 40-220 mmol/L Urine Glucose 1+ H Normal mg/dL Urine Total Protein 49.5 H 1-14 mg/dL Test 03/27/25 12:10 03/27/25 11:32 03/27/25 07:18 03/27/25 06:47 Range/Units Influenza Type A Antigen Negative Negative Influenza Type B Antigen Negative Negative SARS-CoV-2 Antigen (Rapid) Negative NEGATIVE POC Glucose 97 70-106 mg/dl White Blood Count 13.2 #H 4.4-10.8 10^3/uL Red Blood Count 3.43 L 4.0-5.20 10^6/uL Hemoglobin 9.3 L 12.2-16.2 g/dL Hematocrit 28.8 #L 36.0-46.0 % Mean Corpuscular Volume 84.1 80.0-100.0 fL Mean Corpuscular Hemoglobin 27.1 L 28.0-32.0 pg Mean Corpuscular Hemoglobin Concent 32.3 32.0-36.0 g/dL Red Cell Distribution Width 18.3 H 11.8-14.3 % Platelet Count 385 140-450 10^3/uL Mean Platelet Volume 7.4 6.9-10.8 fL Neutrophils (%) (Auto) 88.7 H 37.0-80.0 % Lymphocytes (%) (Auto) 3.0 L 10.0-50.0 % Monocytes (%) (Auto) 7.0 0.0-12.0 % Eosinophils (%) (Auto) 0.7 0.0-7.0 % Basophils (%) (Auto) 0.6 0.0-2.0 % Neutrophils # (Auto) 11.7 H 1.6-8.6 10 ^3/uL Lymphocytes # (Auto) 0.4 0.4-5.4 10 ^3/uL Monocytes # (Auto) 0.9 0-1.3 10 ^3/uL Eosinophils # (Auto) 0.1 0-0.8 10 ^3/uL Basophils # (Auto) 0.1 0-0.2 10 ^3/uL Nucleated Red Blood Cells 0.0 % Sodium Level 139 136-145 mmol/L Potassium Level 4.2 3.5-5.1 mmol/L Chloride Level 104 98-107 mmol/L Carbon Dioxide Level 25 20-31 mmol/L Anion Gap 10 5-15 Blood Urea Nitrogen 18 9-23 mg/dL Creatinine 1.29 H 0.550-1.02 mg/dL Glomerular Filtration Rate Calc 41 >90 mL/min BUN/Creatinine Ratio 14.0 10.0-20.0 Serum Glucose 88 74-106 mg/dL Calcium Level 8.4 L 8.7-10.4 mg/dL Total Bilirubin 0.4 0.2-1.0 mg/dL Aspartate Amino Transferase (AST) 41 H 13-40 U/L Alanine Aminotransferase (ALT) 38 7-40 U/L Alkaline Phosphatase 77 46-116 U/L B-Type Natriuretic Peptide 354.93 0-100 pg/mL Total Protein 5.8 5.7-8.2 g/dL Albumin 3.4 3.2-4.8 g/dL Random Vancomycin Level 9.7 5-10 ug/mL Blood Gas Specimen Type Arterial Blood Gas Sample Site Right radial Blood Gas Patient Temperature 37.0 Arterial Blood Date Drawn [id number] Arterial Blood pH 7.341 L 7.350-7.450 Arterial Blood Partial Pressure CO2 43.2 32.0-45.0 mmHg Arterial Blood Partial Pressure O2 68.3 L 83.0-108.0 mmHg Arterial Blood HCO3 22.8 21.0-28.0 mmol/L Arterial Blood Oxygen Saturation 92.1 L 94.0-98.0 % Arterial Blood Base Excess -2.8 L -2.0-3.0 mmol/L Arterial Blood Oxyhemoglobin 90.7 L 94.0-98.0 % Arterial Blood Carboxyhemoglobin 1.1 0.5-1.5 % Arterial Blood Methemoglobin 0.4 0.0-1.5 % Adryan Test Modified Blood Gas Total Hemoglobin 9.70 L 12.0-16.0 g/dL Blood Gas Set Respiration Rate 24.0 Blood Gas Modality Vent - ac FiO2 % 30.0 Blood Gas Tidal Volume 400.0 Blood Gas PEEP or CPAP 5.0 Test 03/27/25 05:31 03/27/25 00:22 03/26/25 18:19 03/26/25 11:49 Range/Units POC Glucose 97 88 92 83 70-106 mg/dl Test 03/26/25 08:00 03/26/25 06:23 03/26/25 06:16 03/26/25 02:40 Range/Units Urine Color Light-yellow Yellow Urine Clarity Clear Clear Urine pH 6.0 5.0-9.0 Urine Specific [place] 1.013 1.001-1.035 Urine Protein Trace H Negative Urine Ketones Negative Negative Urine Blood Negative Negative /uL Urine Nitrite Negative Negative Urine Bilirubin Negative Negative Urine Urobilinogen Normal Negative mg/dL Urine Leukocyte Esterase Negative Negative /uL Urine RBC 1 0 - 4 /hpf Urine Microscopic WBC < 1 0-5 /HPF Urine Squamous Epithelial Cells Few <5 /hpf Urine Bacteria None seen None Seen /hpf Urine Glucose 4+ H Normal mg/dL Blood Gas Specimen Type Arterial Arterial Blood Gas Sample Site Left radial Left radial Blood Gas Patient Temperature 37.0 37.0 Arterial Blood Date Drawn [id number] Arterial Blood pH 7.270 L 7.205 *L 7.350-7.450 Arterial Blood Partial Pressure CO2 49.6 H 60.1 *H 32.0-45.0 mmHg Arterial Blood Partial Pressure O2 225.4 H 293.1 H 83.0-108.0 mmHg Arterial Blood HCO3 22.3 23.2 21.0-28.0 mmol/L Arterial Blood Oxygen Saturation 99.4 H 99.7 H 94.0-98.0 % Arterial Blood Base Excess -4.6 L -5.3 L -2.0-3.0 mmol/L Arterial Blood Oxyhemoglobin 98.7 H 98.5 H 94.0-98.0 % Arterial Blood Carboxyhemoglobin 0.2 L 0.6 0.5-1.5 % Arterial Blood Methemoglobin 0.5 0.6 0.0-1.5 % Adryan Test Modified Modified Blood Gas Total Hemoglobin 10.00 L 11.80 L 12.0-16.0 g/dL Blood Gas Set Respiration Rate 24.0 20.0 Blood Gas Modality Vent - ac Vent - ac FiO2 % 70.0 100.0 Blood Gas Tidal Volume 400.0 400.0 Blood Gas PEEP or CPAP 5.0 5.0 POC Glucose 211 H 70-106 mg/dl Blood Gas Critical Value Read Back Yes Blood Gas Notified Whom Md jazmine hastings Blood Gas Notified Time [id number] Blood Gas Notified By Rt misael finley Test 03/26/25 01:15 03/26/25 00:10 Range/Units Sodium Level 136 136-145 mmol/L Potassium Level 4.7 3.5-5.1 mmol/L Chloride Level 102 98-107 mmol/L Carbon Dioxide Level 25 20-31 mmol/L Anion Gap 9 5-15 Blood Urea Nitrogen 18 9-23 mg/dL Creatinine 1.34 H 0.550-1.02 mg/dL Glomerular Filtration Rate Calc 39 >90 mL/min BUN/Creatinine Ratio 13.4 10.0-20.0 Serum Glucose 226 H 74-106 mg/dL Calcium Level 9.3 8.7-10.4 mg/dL Total Bilirubin 0.4 0.2-1.0 mg/dL Aspartate Amino Transferase (AST) 39 13-40 U/L Alanine Aminotransferase (ALT) 31 7-40 U/L Alkaline Phosphatase 114 46-116 U/L Troponin I High Sensitivity 9 7 </=34 ng/L Total Protein 6.8 5.7-8.2 g/dL Albumin 4.0 3.2-4.8 g/dL White Blood Count 22.0 H 4.4-10.8 10^3/uL Red Blood Count 3.99 L 4.0-5.20 10^6/uL Hemoglobin 10.8 L 12.2-16.2 g/dL Hematocrit 34.8 L 36.0-46.0 % Mean Corpuscular Volume 87.3 80.0-100.0 fL Mean Corpuscular Hemoglobin 27.1 L 28.0-32.0 pg Mean Corpuscular Hemoglobin Concent 31.1 L 32.0-36.0 g/dL Red Cell Distribution Width 18.7 H 11.8-14.3 % Platelet Count 470 H 140-450 10^3/uL Mean Platelet Volume 7.6 6.9-10.8 fL Neutrophils (%) (Auto) 82.0 H 37.0-80.0 % Lymphocytes (%) (Auto) 10.5 10.0-50.0 % Monocytes (%) (Auto) 5.9 0.0-12.0 % Eosinophils (%) (Auto) 1.2 0.0-7.0 % Basophils (%) (Auto) 0.4 0.0-2.0 % Neutrophils # (Auto) 18.1 H 1.6-8.6 10 ^3/uL Lymphocytes # (Auto) 2.3 0.4-5.4 10 ^3/uL Monocytes # (Auto) 1.3 0-1.3 10 ^3/uL Eosinophils # (Auto) 0.3 0-0.8 10 ^3/uL Basophils # (Auto) 0.1 0-0.2 10 ^3/uL Nucleated Red Blood Cells 0.1 % Prothrombin Time 11.1 9.3-11.8 sec Prothrombin Time INR 1.05 0.9-1.15 Activated Partial Thromboplast Time 26.7 24.5-34.5 SEC Lactic Acid Level 1.8 0.4-2.0 mmol/L Assessment Acute kidney injury superimposed Chronic Kidney Disease secondary hemodynamic me diated Acute on chronic respiratory failure, patient intubated on ventilator COPD exacerbation Chronic diastolic Congestive heart failure Atrial fibrillation Anemia of chronic kidney disease Recommendations Closely monitor fluid and electrolytes Avoid nephrotoxic medications Salas catheter Strict I&Os IV antibiotics IV steroids Check urine electrolytes and protein excretion Check kidney ultrasound We will continue to follow Patient seen and examined by myself. I discussed my plan of care with the primary nurse at the bedside I would like to thank Dr. Lee for the consult, will follow up Plan discussed with: Other (Nurse) GRACE DUGAN MD Mar 27, 2025 16:05
--- NOTE | 2025-03-27 17:00 | DVH ---
CLINICAL HISTORY: ignacio TECHNIQUE: Complete ultrasound exam of the kidneys and bladder was performed. COMPARISON: US KIDNEY on DOS: 05/22/24 FINDINGS: The right kidney has normal echogenicity and measures 8.4 cm. There is no focal parenchymal abnormality or evidence for stone. There is no hydronephrosis. The poorly seen left kidney has normal echogenicity and measures 8.5 cm. There is no focal parenchymal abnormality or evidence for stone. There is no hydronephrosis. The bladder is decompressed by Salas catheter. IMPRESSION: Slightly limited exam with small kidneys. No hydronephrosis.
[2025-03-27 17:42] LABS: Protein, Urine 49.5 mg/dL (1-14)
[2025-03-27] MEDS: ALBUTEROL SULF 2.5 MG/0.5ML(0.5%) NEB SOLN NEB SCH (18:52)
[2025-03-27 18:53] LABS: Urine Protein, UAD TRACE (Negative)
[2025-03-27 19:17] LABS: Iron 16.0 ug/dL (50-170)
[2025-03-27 19:18] LABS: Total Iron Binding Capacity 264.0 ug/dL (250-425)
[2025-03-27 20:04] LABS: Magnesium 1.7 mg/dL (1.6-2.6)
[2025-03-27] MEDS: ACETAMINOPHEN 325 MG TAB PO PRN (20:27)
[2025-03-27] MEDS: IVABRADINE 5 MG TAB PO SCH (21:53)
--- NOTE | 2025-03-27 23:12 | DVHPN2 ---
Subjective [facility] DOS: 03/27/2025 Patient seen and examined at bedside. Intubated on mechanical ventilator. Overnight events reviewed. Changes from previous H/P or p: No Changes Objective Vitals Vital Signs Date Time Temp Pulse Resp B/P (MAP) Pulse Ox O2 Delivery O2 Flow Rate FiO2 03/27/25 23:00 99.1 85 24 134/57 (82) 99 210.4 03/27/25 22:13 45 03/27/25 22:13 Mechanical Ventilator+ 03/27/25 06:00 0 Intake/Output Intake and Output 03/27/25 07:00 Intake Total 820.0 ml Output Total 1850 ml Balance -1030.0 ml Intake Oral 100 ml IV Total 720.0 ml Output Urine Total 1850 ml Exam Gen.: Patient lying in bed in medical ICU. Intubated on mechanical ventilator. Head: Normocephalic, atraumatic. Eyes: PERRLA. Ears: Normal external anatomy. Throat: Endotracheal tube and orogastric tube in place. Neck: Supple, trachea midline. Chest: Transmitted breath sounds bilaterally. Decreased air entry bilaterally. No wheezing. Bibasilar crackles. Cardiovascular: Positive S1, positive S2. Regular rate and rhythm. Abdomen: Positive bowel sounds in all 4 quadrants. Soft, nontender, nondistended. : Salas in place. Normal external genitalia. Rectal: Deferred. Skin: Warm, dry. Intact. Extremities: 2+ radial pulses bilaterally. No lower extremity edema. Neuro: Off sedation. Awake, alert, following commands. Medications Current Medications Medications Dose Ordered Sig/Long Route Start Time Stop Time Status Last Admin Dose Admin Albuterol 2.5 mg Q6HPRN PRN NEB 03/26/25 04:15 Vancomycin HCl 0 ml @ 0 mls/hr PER PHARMACY IV 03/26/25 04:15 Hydralazine HCl 10 mg Q6HP PRN IV 03/26/25 04:15 Amiodarone HCl 200 mg DAILY NG 03/26/25 10:00 03/27/25 09:49 200 MG Ondansetron HCl 4 mg Q4HP PRN IV 03/26/25 04:15 Enoxaparin Sodium 30 mg DAILY SC 03/26/25 10:00 03/27/25 09:49 30 MG Acetaminophen 650 mg Q6HP PRN PO 03/26/25 04:15 03/27/25 20:27 650 MG Nitroglycerin 0.4 mg Q5MINP PRN SL 03/26/25 04:15 Morphine Sulfate 2 mg Q30M PRN IV 03/26/25 04:15 Midazolam HCl 100 ml @ 1 mls/hr Q24H IV 03/26/25 05:00 03/26/25 05:00 1 MLS/HR Phenylephrine HCl 250 ml @ 30 mls/hr Q8H20M IV 03/26/25 06:30 Fentanyl Citrate 250 ml @ 2.5 mls/hr Q24H IV 03/26/25 06:30 03/27/25 14:44 22.5 MLS/HR Pantoprazole Sodium 40 mg DAILY IV 03/27/25 10:00 03/27/25 09:49 40 MG Ipratropium [place] 0.5 mg Q6HR NEB 03/26/25 18:00 03/27/25 18:52 0.5 MG Levofloxacin 50 ml @ 50 mls/hr DAILY IV 03/27/25 10:00 03/27/25 09:49 50 MLS/HR Albuterol 2.5 mg Q6HR NEB 03/27/25 18:00 03/27/25 18:52 2.5 MG Clopidogrel Bisulfate 75 mg DAILY PO 03/28/25 10:00 Ivabradine 5 mg BID PO 03/27/25 22:00 03/27/25 21:53 5 MG Enteral Nutritional Formula 1,000 ml 40ML/HR GT 03/27/25 16:00 Laboratory Results Laboratory Tests 03/27/25 07:18 Chemistry Test 03/27/25 07:18 03/27/25 18:33 Albumin 3.4 g/dL (3.2-4.8) Calcium Level 8.4 mg/dL (8.7-10.4) L Total Protein 5.8 g/dL (5.7-8.2) Magnesium Level 1.7 mg/dL (1.6-2.6) Phosphorus Level 4.4 mg/dL (2.4-5.1) Cardiac Markers Test 03/27/25 07:18 03/27/25 18:33 B-Type Natriuretic Peptide 354.93 pg/mL (0-100) 422.15 pg/mL (0-100) LFT Test 03/27/25 07:18 Alanine Aminotransferase (ALT) 38 U/L (7-40) Alkaline Phosphatase 77 U/L (46-116) Aspartate Amino Transferase (AST) 41 U/L (13-40) H Total Bilirubin 0.4 mg/dL (0.2-1.0) Urinalysis Test 03/27/25 16:15 Urine Color Light-yellow (Yellow) Urine Clarity Turbid (Clear) H Urine pH 5.0 (5.0-9.0) Urine Specific [place] 1.016 (1.001-1.035) Urine Protein Trace (Negative) H Urine Ketones Negative (Negative) Urine Blood Negative /uL (Negative) Urine Nitrite Negative (Negative) Urine Bilirubin Negative (Negative) Urine Urobilinogen Normal mg/dL (Negative) Urine Leukocyte Esterase Negative /uL (Negative) Urine RBC 1 /hpf (0 - 4) Urine Microscopic WBC 9 /HPF (0-5) H Urine Squamous Epithelial Cells None seen /hpf (<5) Urine Bacteria Few /hpf (None Seen) H Urine Mucus Few (None Seen) Urine Creatinine 56.51 mg/dL (30.0-125.0) Urine Protein/Creatinine Ratio 0.88 Urine Sodium 29 mmol/L (40-220) L Urine Glucose 1+ mg/dL (Normal) H Urine Total Protein 49.5 mg/dL (1-14) H Blood Gas Results Test 03/27/25 06:47 Arterial Blood pH 7.341 (7.350-7.450) FiO2 % 30.0 Microbiology Microbiology Date/Time Source Procedure Growth Status 03/26/25 00:40 Trachea Gram Stain - Final Resulted 03/26/25 00:40 Trachea Respiratory Culture - Preliminary Resulted 03/26/25 00:12 Blood Blood Culture - Preliminary NO GROWTH AFTER 24 HOURS OF INCUBATION. Resulted Assessment/Plan Assessment/Plan Impression: Acute on chronic hypoxic and hypercapnic respiratory failure On mechanical ventilator Pneumonia, Gram-positive versus Gram negative Pulmonary hypertension Chronic obstructive pulmonary disease exacerbation Acute metabolic encephalopathy Acute HFpEF Paroxysmal atrial fibrillation Anemia Plan: s/p intubation on mechanical ventilator. On AC mode with respiratory rate 24, tidal volume 400, PEEP of 5, FiO2 40%. Titrate FIO2 to keep O2 saturation above 90%. VAP bundle. Daily ABG and CXR while intubated Off Versed. On Fentanyl drip SBT/JONNATHAN CPAP with PS 8, PEEP of 5 Patient is awake, alert and following commands. Pressors as necessary for hemodynamic support Titrate to keep mean arterial pressure greater than 65 mmHg Echocardiogram on 11/19/2024: Ejection fraction greater than 55%, left and right atrial enlargement On Ivabradine and digoxin by policy value calculator Follow up Cardiology recs Bronchodilators - albuterol. IV antibiotic with vancomycin, levofloxacin Blood cultures ordered Accu-Cheks, ISS Monitor hemoglobin Transfuse if less than 7.0 g/dL. Monitor renal function Monitor electrolytes. Supplement as necessary. Monitor ins and outs. GI prophylaxis. DVT prophylaxis. Prognosis: Poor given patient's multiple co-morbidities. Condition: Critical Rest of plan per hospitalist and other consultants. A total of 35 minutes of critical care time was spent reviewing the patient record, examining the patient, making a diagnostic and therapeutic plan, discussing this plan with the medical personnel, following up on diagnostic studies and following the patient for clinical stability excluding any and all procedures. At least 50% of this time was spent in direct, [id number] contact. Thank you for allowing me to participate in this patient's care. Further recommendations will depend on the patient's clinical course. Please do not hesitate to contact me if you have any questions or concerns. This medical document was created using an electronic medical record system with [employer] dictation system. Although these documentations are being carefully reviewed, there may still be some phonetic and typographical changes. The errors are purely typographical, due to imperfection on the software program, and do not reflect any compromise in the patient's medical care. Plan discussed with: Other (BENSON Servin) My Orders Orders - SNEHA KUMARI MD Procedure Category Date Status Time Cpap Trial For Am ORDERS 03/28/25 Transmitted 08:00 Visit Coding Pulmonary Billing Provider: SNEHA KUMARI MD Date of Service if different f: Mar 27, 2025 Common Visit Codes: [id number] INP/OBS CARE(HIGH), [id number] CARE 30-74 MIN SNEHA KUMARI MD Mar 27, 2025 23:12
[2025-03-28] VITALS (112 sets, daily range): BP systolic 69–162; BP diastolic 35–71; PULSE 70–104; RESP 12–27; TEMP 97–99.3; O2SAT 87–100
[2025-03-28 03:24] LABS: Hematocrit 32.3 % (36.0-46.0); Hemoglobin 10.1 g/dL (12.2-16.2); Mean Corpuscular Hemoglobin 27.3 pg (28.0-32.0); Mean Corpuscular Volume 87.2 fL (80.0-100.0); Nucleated Red Blood Cells % 0.0 %
[2025-03-28 03:50] LABS: Albumin 3.8 g/dL (3.2-4.8); Alkaline Phosphatase 87 U/L (46-116); Anion Gap 15 (5-15); BUN/Creatinine Ratio 20.3 (10.0-20.0); Bilirubin, Total 0.4 mg/dL (0.2-1.0); Calcium 9.1 mg/dL (8.7-10.4); Carbon Dioxide 21 mmol/L (20-31); Chloride 103 mmol/L (98-107); Glucose 87 mg/dL (74-106); Magnesium 1.7 mg/dL (1.6-2.6); Potassium 4.3 mmol/L (3.5-5.1); Sodium 139 mmol/L (136-145); Total Protein 6.2 g/dL (5.7-8.2)
[2025-03-28 03:58] LABS: Alanine Aminotransferase 43 U/L (7-40); Blood Urea Nitrogen 24 mg/dL (9-23)
--- NOTE | 2025-03-28 06:10 | DVH ---
CHEST RADIOGRAPH Indication: on vent Technique: Single frontal view of the chest was obtained COMPARISON: XY CHEST PORTABLE on DOS: 03/27/25, XY CHEST PORTABLE on DOS: 03/26/25, XY CHEST XRAY 1 VIEW on DOS: 03/14/25, XY CHEST XRAY 1 VIEW on DOS: 03/14/25, XY CHEST XRAY 1 VIEW on DOS: 03/13/25 FINDINGS: Lines and Tubes: Slight interval retraction of endotracheal tube such that the tip now projects approximately 6.9 cm above the level of the brii. Enteric catheter unchanged. Lungs: Stable diffuse increased prominence of the pulmonary vasculature. No evidence of focal consolidation. Pleura: No effusion. No pneumothorax. Cardiomediastinal contours: Unremarkable Bones: Unremarkable IMPRESSION: 1. Slight interval retraction of endotracheal tube such that the tip now projects approximately 6.9 cm above the level of the brii. Enteric catheter unchanged. 2. Stable diffuse increased prominence of the pulmonary vasculature.
[2025-03-28 08:09] LABS: Base Excess -5.7 mmol/L (-2.0-3.0)
[2025-03-28] MEDS: CLOPIDOGREL BISULFATE 75 MG TAB PO SCH (09:04)
[2025-03-28] MEDS: FUROSEMIDE 40 MG/4 ML VIAL IV ONE (10:16)
--- NOTE | 2025-03-28 10:33 | DVHPN2 ---
Progress Note Date Seen: Mar 28, 2025 Has the PT tested + for MRSA If YES, has PT been informed?: No Medical Necessity Reason Pt with a Central, PICC or Fol: Yes The following are medically ne: Nova Catheter Reason for nova catheter: Strict I&O Subjective Review of Systems: RESPIRATORY:Abnormal Other Systems: Patient seen and examined by myself today in follow-up, patient remained intubated on ventilator Objective vital signs Vital Sign Date Time Temp Pulse Resp B/P (MAP) Pulse Ox O2 Delivery O2 Flow Rate FiO2 03/28/25 10:16 128/53 03/28/25 10:15 76 24 99 03/28/25 09:15 98.2 208.8 03/28/25 08:03 40 03/28/25 05:52 Mechanical Ventilator+ 03/27/25 06:00 0 Total Intake and Output 03/27/25 03/27/25 03/28/25 15:00 23:00 07:00 Intake Total 330.0 ml 160.0 ml 173.0 ml Output Total 460 ml 275 ml Balance 330.0 ml -300.0 ml -102.0 ml medications Current Medications Medications Dose Ordered Sig/Long Route Start Time Stop Time Status Last Admin Dose Admin Albuterol 2.5 mg Q6HPRN PRN NEB 03/26/25 04:15 Vancomycin HCl 0 ml @ 0 mls/hr PER PHARMACY IV 03/26/25 04:15 Hydralazine HCl 10 mg Q6HP PRN IV 03/26/25 04:15 Amiodarone HCl 200 mg DAILY NG 03/26/25 10:00 03/28/25 09:03 Ondansetron HCl 4 mg Q4HP PRN IV 03/26/25 04:15 Enoxaparin Sodium 30 mg DAILY SC 03/26/25 10:00 03/28/25 09:03 Acetaminophen 650 mg Q6HP PRN PO 03/26/25 04:15 03/27/25 20:27 Nitroglycerin 0.4 mg Q5MINP PRN SL 03/26/25 04:15 Morphine Sulfate 2 mg Q30M PRN IV 03/26/25 04:15 Midazolam HCl 100 ml @ 1 mls/hr Q24H IV 03/26/25 05:00 03/26/25 05:00 Phenylephrine HCl 250 ml @ 30 mls/hr Q8H20M IV 03/26/25 06:30 03/28/25 09:41 Fentanyl Citrate 250 ml @ 2.5 mls/hr Q24H IV 03/26/25 06:30 03/28/25 03:43 Pantoprazole Sodium 40 mg DAILY IV 03/27/25 10:00 03/28/25 09:02 Ipratropium [place] 0.5 mg Q6HR NEB 03/26/25 18:00 03/28/25 06:56 Levofloxacin 50 ml @ 50 mls/hr DAILY IV 03/27/25 10:00 03/28/25 09:02 Albuterol 2.5 mg Q6HR NEB 03/27/25 18:00 03/28/25 06:56 Clopidogrel Bisulfate 75 mg DAILY PO 03/28/25 10:00 03/28/25 09:04 Ivabradine 5 mg BID PO 03/27/25 22:00 03/28/25 09:03 Enteral Nutritional Formula 1,000 ml 40ML/HR GT 03/27/25 16:00 Examination: LUNGS:Normal, CVS:Normal, MSK:Normal laboratory and microbiology Laboratory Tests 03/28/25 02:42 Test 03/28/25 02:42 Range/Units Serum Glucose 87 74-106 mg/dL Microbiology Date/Time Source Procedure Growth Status 03/26/25 00:40 Trachea Gram Stain - Final Resulted 03/26/25 00:40 Trachea Respiratory Culture - Preliminary Resulted 03/26/25 00:12 Blood Blood Culture - Preliminary NO GROWTH AFTER 48 HOURS OF INCUBATION. Resulted Problem List/Assessment/Plan Problem List/Assessment/Plan Acute kidney injury superimposed Chronic Kidney Disease stage IIIA secondary hemodynamic mediated Acute on chronic respiratory failure, patient intubated on ventilator COPD exacerbation Chronic diastolic Congestive heart failure Atrial fibrillation Anemia of chronic kidney disease Recommendations Kidney function is improving Increased urine output Nova catheter Strict I&Os IV antibiotics IV steroids IV pressors for blood pressure support kidney ultrasound reported bilateral small kidneys We will continue to follow Patient is cleared from Nephrology for PICC line for central axis Plan discussed with: Other (Nurse) My Orders My Orders Orders - GRACE DUGAN MD Procedure Category Date Status Time Kidney US 03/27/25 Resulted 16:08 Dietary Evaluation Review Comments: 1. Protein Adjustment: Recommend lower protein intake at ~1 g/kg ABW to support CKD Stage 3 status and reduce renal workload. 2. Enteral Nutrition (EN) If GI tract is accessible, initiate tube feeding (TF): Formula: Glucerna Rate: 40 mL/hr (continuous) Provides: Protein: ~58 g/day (98% of estimated needs) Energy: ~1152 kcal/day (118% of estimated needs) 3. Monitoring & Follow-Up Labs: Monitor renal panel, electrolytes, and relevant nutrition markers. Consults: Follow nephrology and GI recommendations. Reassess PRN: Adjust feeding regimen based on tolerance, labs, and clinical status. Expected Outcomes/Goals: Improing nutrition status, able to have PO feedings with gradual wt gain. GRACE DUGAN MD Mar 28, 2025 10:33
--- NOTE | 2025-03-28 11:03 | DVHPN2 ---
Progress Note - Dictate Date Seen: Mar 28, 2025 Has the PT tested + for MRSA If YES, has PT been informed?: No Medical Necessity Reason Pt with a Central, PICC or Fol: Yes The following are medically ne: Nova Catheter Reason for nova catheter: Strict I&O Subjective DILATED/ ISCHEMIC CM EFrEF ACUTE DECOMPENSATION S/P DUAL CHAMBER AICD S/P PTCA STENT DIAGONAL HX OF AFIB ACUTE RESP ARREST HYPOCAPNIA COPD DIABETES HTN CKD STAGE II CT OF ABD ENTEROCOLITIS SBO CT HEAD NEGATIVE FOR ACUTE PATHOLOGY CXR POSITIVE INFILTRATE vital signs Vital Sign Date Time Temp Pulse Resp B/P (MAP) Pulse Ox O2 Delivery O2 Flow Rate FiO2 03/28/25 10:16 128/53 03/28/25 10:15 76 24 99 03/28/25 10:00 35 03/28/25 10:00 Mechanical Ventilator+ 03/28/25 09:15 98.2 208.8 03/27/25 06:00 0 Total Intake and Output 03/27/25 03/27/25 03/28/25 15:00 23:00 07:00 Intake Total 330.0 ml 160.0 ml 173.0 ml Output Total 460 ml 275 ml Balance 330.0 ml -300.0 ml -102.0 ml medications Current Medications Medications Dose Ordered Sig/Long Route Start Time Stop Time Status Last Admin Dose Admin Albuterol 2.5 mg Q6HPRN PRN NEB 03/26/25 04:15 Vancomycin HCl 0 ml @ 0 mls/hr PER PHARMACY IV 03/26/25 04:15 Hydralazine HCl 10 mg Q6HP PRN IV 03/26/25 04:15 Amiodarone HCl 200 mg DAILY NG 03/26/25 10:00 03/28/25 09:03 200 MG Ondansetron HCl 4 mg Q4HP PRN IV 03/26/25 04:15 Enoxaparin Sodium 30 mg DAILY SC 03/26/25 10:00 03/28/25 09:03 30 MG Acetaminophen 650 mg Q6HP PRN PO 03/26/25 04:15 03/27/25 20:27 650 MG Nitroglycerin 0.4 mg Q5MINP PRN SL 03/26/25 04:15 Morphine Sulfate 2 mg Q30M PRN IV 03/26/25 04:15 Midazolam HCl 100 ml @ 1 mls/hr Q24H IV 03/26/25 05:00 03/26/25 05:00 1 MLS/HR Phenylephrine HCl 250 ml @ 30 mls/hr Q8H20M IV 03/26/25 06:30 03/28/25 09:41 30 MLS/HR Fentanyl Citrate 250 ml @ 2.5 mls/hr Q24H IV 03/26/25 06:30 03/28/25 03:43 10 MLS/HR Pantoprazole Sodium 40 mg DAILY IV 03/27/25 10:00 03/28/25 09:02 40 MG Ipratropium [place] 0.5 mg Q6HR NEB 03/26/25 18:00 03/28/25 06:56 0.5 MG Levofloxacin 50 ml @ 50 mls/hr DAILY IV 03/27/25 10:00 03/28/25 09:02 50 MLS/HR Albuterol 2.5 mg Q6HR NEB 03/27/25 18:00 03/28/25 06:56 2.5 MG Clopidogrel Bisulfate 75 mg DAILY PO 03/28/25 10:00 03/28/25 09:04 75 MG Ivabradine 5 mg BID PO 03/27/25 22:00 03/28/25 09:03 5 MG Enteral Nutritional Formula 1,000 ml 40ML/HR GT 03/27/25 16:00 laboratory and microbiology Laboratory Tests 03/28/25 02:42 Test 03/28/25 02:42 Range/Units Serum Glucose 87 74-106 mg/dL Problem List DILATED/ ISCHEMIC CM EFrEF ACUTE DECOMPENSATION S/P DUAL CHAMBER AICD S/P PTCA STENT DIAGONAL HX OF AFIB ACUTE RESP ARREST HYPOCAPNIA COPD DIABETES HTN CKD STAGE II CT OF ABD ENTEROCOLITIS SBO CT HEAD NEGATIVE FOR ACUTE PATHOLOGY CXR POSITIVE INFILTRATE Assessment/Plan RESP STATUS IMPROVED BUT STILL APNEIC NEURO EXAM CONT SUPPORTIVE THERAPY DIURESIS DIG CORLANOR MONITOR k IV FLUID ABX NUTRITIONAL SUPPORT TESTOSTERONE X 1 Dietary Evaluation Review Comments: 1. Protein Adjustment: Recommend lower protein intake at ~1 g/kg ABW to support CKD Stage 3 status and reduce renal workload. 2. Enteral Nutrition (EN) If GI tract is accessible, initiate tube feeding (TF): Formula: Glucerna Rate: 40 mL/hr (continuous) Provides: Protein: ~58 g/day (98% of estimated needs) Energy: ~1152 kcal/day (118% of estimated needs) 3. Monitoring & Follow-Up Labs: Monitor renal panel, electrolytes, and relevant nutrition markers. Consults: Follow nephrology and GI recommendations. Reassess PRN: Adjust feeding regimen based on tolerance, labs, and clinical status. Expected Outcomes/Goals: Improing nutrition status, able to have PO feedings with gradual wt gain. Plan discussed with: Patient, Daughter Critical Care Time(min): 35 WILEY SALINAS MD Mar 28, 2025 11:02
[2025-03-28] MEDS: MAGNESIUM SULFATE 1GM/100ML 100 ML IV SCH (12:29)
--- NOTE | 2025-03-28 12:38 | DVHPNRES ---
Progress Note Date Seen: Mar 28, 2025 Resident Creating Document: LAURO SANTIZO RESIDENT Has the PT tested + for MRSA If YES, has PT been informed?: No Medical Necessity Reason Pt with a Central, PICC or Fol: Yes The following are medically ne: Nova Catheter Reason for nova catheter: Strict I&O Subjective Review of Systems Patient is 54-year-old female for history of pulmonary artery hypertension, HFrEF, COPD, sick sinus syndrome status post pacemaker, atrial fibrillation, diabetes mellitus, hyperlipidemia, hypertension who brought to the hospital with a chief complaint of shortness of breath. Patient was recently in the hospital due to shortness of breath, difficulty breathing, low oxygen saturation at 33%. As per daughter she started suddenly had trouble breathing, and then called 911. Patient was intubated on 03/26/2025. Past surgical history: bilateral tubal ligation Family history: Reviewed, noncontributory Personal history: Smoker, no history of alcohol or drug use. CKD STAGE II 03/27/25: Patient seen in ICU. Patient is mechanically ventilated, intubated, but is able to open her eyes, follow commands, chest x-ray looks better today. She is on minimal vent settings. CPAP tomorrow. 03/28/25: Patient seen in ICU. Continued to be on mechanical ventilation. On sedation. Chest x-rays worsened compared to yesterday . More tracheal secretion. Washing per CPAP to [place] tomorrow. Objective vital signs Vital Sign Date Time Temp Pulse Resp B/P (MAP) Pulse Ox O2 Delivery O2 Flow Rate FiO2 03/28/25 12:27 90 27 101/52 (68) 96 30 03/28/25 12:00 Mechanical Ventilator+ 03/28/25 09:15 98.2 208.8 03/27/25 06:00 0 Total Intake and Output 03/27/25 03/27/25 03/28/25 15:00 23:00 07:00 Intake Total 330.0 ml 160.0 ml 173.0 ml Output Total 460 ml 275 ml Balance 330.0 ml -300.0 ml -102.0 ml medications Current Medications Medications Dose Ordered Sig/Long Route Start Time Stop Time Status Last Admin Dose Admin Albuterol 2.5 mg Q6HPRN PRN NEB 03/26/25 04:15 Vancomycin HCl 0 ml @ 0 mls/hr PER PHARMACY IV 03/26/25 04:15 Hydralazine HCl 10 mg Q6HP PRN IV 03/26/25 04:15 Amiodarone HCl 200 mg DAILY NG 03/26/25 10:00 03/28/25 09:03 200 MG Ondansetron HCl 4 mg Q4HP PRN IV 03/26/25 04:15 Enoxaparin Sodium 30 mg DAILY SC 03/26/25 10:00 03/28/25 09:03 30 MG Acetaminophen 650 mg Q6HP PRN PO 03/26/25 04:15 03/27/25 20:27 650 MG Nitroglycerin 0.4 mg Q5MINP PRN SL 03/26/25 04:15 Morphine Sulfate 2 mg Q30M PRN IV 03/26/25 04:15 Midazolam HCl 100 ml @ 1 mls/hr Q24H IV 03/26/25 05:00 03/26/25 05:00 1 MLS/HR Phenylephrine HCl 250 ml @ 30 mls/hr Q8H20M IV 03/26/25 06:30 03/28/25 09:41 30 MLS/HR Fentanyl Citrate 250 ml @ 2.5 mls/hr Q24H IV 03/26/25 06:30 03/28/25 03:43 10 MLS/HR Pantoprazole Sodium 40 mg DAILY IV 03/27/25 10:00 03/28/25 09:02 40 MG Ipratropium [place] 0.5 mg Q6HR NEB 03/26/25 18:00 03/28/25 06:56 0.5 MG Levofloxacin 50 ml @ 50 mls/hr DAILY IV 03/27/25 10:00 03/28/25 09:02 50 MLS/HR Albuterol 2.5 mg Q6HR NEB 03/27/25 18:00 03/28/25 06:56 2.5 MG Clopidogrel Bisulfate 75 mg DAILY PO 03/28/25 10:00 03/28/25 09:04 75 MG Ivabradine 5 mg BID PO 03/27/25 22:00 03/28/25 09:03 5 MG Enteral Nutritional Formula 1,000 ml 40ML/HR GT 03/27/25 16:00 Magnesium Sulfate/ Dextrose 100 ml @ 100 mls/hr Q1HR IV 03/28/25 12:00 03/28/25 13:59 03/28/25 12:29 100 MLS/HR Examination General: Intubated, mechanically ventilated but is able to open her eyes and follow commands. HEENT: Normocephalic, atraumatic, moist mucous membranes Respiratory/pulmonary: Right-sided crackles, left-sided mild crackles, no wheezing. Cardiovascular: Normal heart sounds S1 and S2 with no associated murmurs Abdomen: Abdomen nondistended, there is no pain to palpation in any of the abdominal quadrants, no palpable masses. Extremities: There is no peripheral edema present at the lower extremities. Peripheral Pulses: 3+ Radial (R). 3+ Radial (L). 3+ Dorsalis pedis (R). 3+ Dorsalis pedis(L) Skin: No rashes or pruritus, there is no sacral edema present at this time. Neurological: Intact cranial nerves with no focal neurologic deficits laboratory and microbiology Laboratory Tests 03/28/25 02:42 Test 03/28/25 02:42 Range/Units Serum Glucose 87 74-106 mg/dL Microbiology Date/Time Source Procedure Growth Status 03/26/25 00:40 Trachea Gram Stain - Final Resulted 03/26/25 00:40 Trachea Respiratory Culture - Preliminary Resulted 03/26/25 00:12 Blood Blood Culture - Preliminary NO GROWTH AFTER 48 HOURS OF INCUBATION. Resulted Problem List/Assessment/Plan Problem List/Assessment/Plan Neurology Acute metabolic encephalopathy - Stable -intubated, sedated Cardiology Acute HFpEF Paroxysmal atrial fibrillation History of hypertension -give 1 time dose of Lasix 40 mg -continue to monitor electrolytes: Magnesium, potassium. -echocardiogram on 11/19/2024: Ejection fraction greater than 55%, left and right atrial enlargement -amiodarone 200 mg q.12. Patient used to take Eliquis before, given history of bleeding. Patient is only on Plavix. -Plavix 75 mg daily -cardiology consultation -strict I&O -BNP: 354 -Ivabrandine and digoxin by environmental health and safety intern Respiratory Acute on chronic hypoxic and hypercapnic respiratory failure -ventilation: Respiratory rate 20, tidal volume 400, FiO2 35%, peep five. -IV antibiotic with vancomycin, levofloxacin - blood culture ordered -albuterol 2.5 mg nebulization q.6 Pneumonia Gram-positive versus negative -see the management of respiratory failure Pulmonary hypertension -avoid any antihypertensive medication Chronic obstructive pulmonary disease exacerbation -continue management of respiratory failure Renal/ Electrolytes CKD STAGE II Infection Septic shock ?due to pneumonia Gram-positive versus negative -IV antibiotic with cefepime -maintain map greater than 65 -respiratory culture growing young colonies -urinalysis no signs of active UTI. Hematology Normocytic, normochromic anemia -hemoglobin 11.3 -continue to monitor. -iron panel Endocrine Diabetes mellitus type 2 HGB A1c 6% on 03/12/2025 Dyslipidemia -Insulin sliding scale Electrolyte Hypomagnesemia -magnesium 2 g -checking a.m. Lines: 2 peripheral IV lines Nova catheter Extubated on 03/14/2025 PUD prophylaxis with Protonix DVT prophylaxis with Lovenox Worsening respiratory acidosis with pH of 7.225 and HC03 elevated air 54.3, whichever joint with right-sided pulmonary vascular congestion,/interstitial opacity. patient is a put her back on ventilator , increased tidal volume to 450 and PEEP to 8, repeat ABG in a.m. and possible CPAP trial tomorrow a.m.. Critical care time spent greater than 81 minute. Excluding any procedure Plan discussed with Dr. Hidalgo Plan discussed with: Other (RN) My Orders My Orders Orders - LAURO SANTIZO RESIDENT Procedure Category Date Status Time Cleanse Wound With JOSUE 03/27/25 In Process Mild Soap A 15:23 Respiratory Misc. RT 03/28/25 Transmitted Order 08:00 Respiratory Culture GIANNA 03/28/25 Logged W/ Gs 09:11 Magnesium Sulfate PHA 03/28/25 In Process 1gm/100ml 12:00 Dietary Evaluation Review Comments: 1. Protein Adjustment: Recommend lower protein intake at ~1 g/kg ABW to support CKD Stage 3 status and reduce renal workload. 2. Enteral Nutrition (EN) If GI tract is accessible, initiate tube feeding (TF): Formula: Glucerna Rate: 40 mL/hr (continuous) Provides: Protein: ~58 g/day (98% of estimated needs) Energy: ~1152 kcal/day (118% of estimated needs) 3. Monitoring & Follow-Up Labs: Monitor renal panel, electrolytes, and relevant nutrition markers. Consults: Follow nephrology and GI recommendations. Reassess PRN: Adjust feeding regimen based on tolerance, labs, and clinical status. Expected Outcomes/Goals: Improing nutrition status, able to have PO feedings with gradual wt gain. LAURO SANTIZO RESIDENT Mar 28, 2025 12:38
[2025-03-28 13:08] LABS: Base Excess -3.9 mmol/L (-2.0-3.0)
[2025-03-28] MEDS: TESTOSTERONE CYPIONATE 200 MG/ML 1ML VIAL IM ONE (14:14)
[2025-03-28] MEDS: VANCOMYCIN 750MG KIT 100 ML IV SCH (20:25)
--- NOTE | 2025-03-28 23:02 | DVHPN2 ---
Subjective [facility] DOS: 03/28/2025 Patient seen and examined at bedside. Intubated on mechanical ventilator. Overnight events reviewed. Changes from previous H/P or p: No Changes Objective Vitals Vital Signs Date Time Temp Pulse Resp B/P (MAP) Pulse Ox O2 Delivery O2 Flow Rate FiO2 03/28/25 22:04 79 24 136/60 (85) 98 30 03/28/25 20:00 98.6 98.6 03/28/25 18:00 Mechanical Ventilator+ 03/27/25 06:00 0 Intake/Output Intake and Output 03/28/25 07:00 Intake Total 663.0 ml Output Total 735 ml Balance -72.0 ml Intake Oral 110 ml IV Total 515.0 ml Tube Feeding 38 ml Output Urine Total 725 ml Gastric Drainage Total 10 ml Exam Gen.: Patient lying in bed in medical ICU. Intubated on mechanical ventilator. Head: Normocephalic, atraumatic. Eyes: PERRLA. Ears: Normal external anatomy. Throat: Endotracheal tube and orogastric tube in place. Neck: Supple, trachea midline. Chest: Transmitted breath sounds bilaterally. Decreased air entry bilaterally. No wheezing. Bibasilar crackles. Cardiovascular: Positive S1, positive S2. Regular rate and rhythm. Abdomen: Positive bowel sounds in all 4 quadrants. Soft, nontender, nondistended. : Salas in place. Normal external genitalia. Rectal: Deferred. Skin: Warm, dry. Intact. Extremities: 2+ radial pulses bilaterally. No lower extremity edema. Neuro: Off sedation. Awake, alert, following commands. Medications Current Medications Medications Dose Ordered Sig/Long Route Start Time Stop Time Status Last Admin Dose Admin Albuterol 2.5 mg Q6HPRN PRN NEB 03/26/25 04:15 Vancomycin HCl 0 ml @ 0 mls/hr PER PHARMACY IV 03/26/25 04:15 Hydralazine HCl 10 mg Q6HP PRN IV 03/26/25 04:15 Amiodarone HCl 200 mg DAILY NG 03/26/25 10:00 03/28/25 09:03 200 MG Ondansetron HCl 4 mg Q4HP PRN IV 03/26/25 04:15 Enoxaparin Sodium 30 mg DAILY SC 03/26/25 10:00 03/28/25 09:03 30 MG Acetaminophen 650 mg Q6HP PRN PO 03/26/25 04:15 03/27/25 20:27 650 MG Nitroglycerin 0.4 mg Q5MINP PRN SL 03/26/25 04:15 Morphine Sulfate 2 mg Q30M PRN IV 03/26/25 04:15 Midazolam HCl 100 ml @ 1 mls/hr Q24H IV 03/26/25 05:00 03/26/25 05:00 1 MLS/HR Phenylephrine HCl 250 ml @ 30 mls/hr Q8H20M IV 03/26/25 06:30 03/28/25 19:31 30 MLS/HR Fentanyl Citrate 250 ml @ 2.5 mls/hr Q24H IV 03/26/25 06:30 03/28/25 03:43 10 MLS/HR Pantoprazole Sodium 40 mg DAILY IV 03/27/25 10:00 03/28/25 09:02 40 MG Ipratropium [place] 0.5 mg Q6HR NEB 03/26/25 18:00 03/28/25 18:32 0.5 MG Albuterol 2.5 mg Q6HR NEB 03/27/25 18:00 03/28/25 18:32 2.5 MG Clopidogrel Bisulfate 75 mg DAILY PO 03/28/25 10:00 03/28/25 09:04 75 MG Ivabradine 5 mg BID PO 03/27/25 22:00 03/28/25 20:43 5 MG Enteral Nutritional Formula 1,000 ml 40ML/HR GT 03/27/25 16:00 Levofloxacin/ Dextrose 150 ml @ 150 mls/hr Q48H IV 03/30/25 10:00 Vancomycin HCl 100 ml @ 100 mls/hr Q24H IV 03/28/25 20:00 03/28/25 20:25 100 MLS/HR Laboratory Results Laboratory Tests 03/28/25 02:42 Chemistry Test 03/28/25 02:42 Albumin 3.8 g/dL (3.2-4.8) Calcium Level 9.1 mg/dL (8.7-10.4) Magnesium Level 1.7 mg/dL (1.6-2.6) Total Protein 6.2 g/dL (5.7-8.2) LFT Test 03/28/25 02:42 Alanine Aminotransferase (ALT) 43 U/L (7-40) H Alkaline Phosphatase 87 U/L (46-116) Aspartate Amino Transferase (AST) 35 U/L (13-40) Total Bilirubin 0.4 mg/dL (0.2-1.0) Urinalysis Test 03/27/25 16:15 Urine Color Light-yellow (Yellow) Urine Clarity Turbid (Clear) H Urine pH 5.0 (5.0-9.0) Urine Specific [place] 1.016 (1.001-1.035) Urine Protein Trace (Negative) H Urine Ketones Negative (Negative) Urine Blood Negative /uL (Negative) Urine Nitrite Negative (Negative) Urine Bilirubin Negative (Negative) Urine Urobilinogen Normal mg/dL (Negative) Urine Leukocyte Esterase Negative /uL (Negative) Urine RBC 1 /hpf (0 - 4) Urine Microscopic WBC 9 /HPF (0-5) H Urine Squamous Epithelial Cells None seen /hpf (<5) Urine Bacteria Few /hpf (None Seen) H Urine Mucus Few (None Seen) Urine Creatinine 56.51 mg/dL (30.0-125.0) Urine Protein/Creatinine Ratio 0.88 Urine Sodium 29 mmol/L (40-220) L Urine Glucose 1+ mg/dL (Normal) H Urine Total Protein 49.5 mg/dL (1-14) H Blood Gas Results Test 03/28/25 07:14 03/28/25 13:00 Arterial Blood pH 7.225 (7.350-7.450) 7.315 (7.350-7.450) FiO2 % 35.0 30.0 Microbiology Microbiology Date/Time Source Procedure Growth Status 03/27/25 04:45 Nose MRSA Screen - Final Complete 03/26/25 00:12 Blood Blood Culture - Preliminary NO GROWTH AFTER 48 HOURS OF INCUBATION. Resulted Assessment/Plan Assessment/Plan Impression: Acute on chronic hypoxic and hypercapnic respiratory failure On mechanical ventilator Pneumonia, Gram-positive versus Gram negative Pulmonary hypertension Chronic obstructive pulmonary disease exacerbation Acute metabolic encephalopathy Acute HFpEF Paroxysmal atrial fibrillation Anemia Events: Remains on vent support On AC mode with respiratory rate 24, tidal volume 400, PEEP of 5, FiO2 40%. ABG reviewed, notable for acidemia Chest x-ray showed pulmonary vascular congestion. Pt received Lasix. PEEP was increased to 8, VT increased to 450. Repeat in 1 hour. Pressors as necessary for hemodynamic support On Diego-Synephrine 40 mcg/min Titrate to keep mean arterial pressure greater than 65 mmHg Increased ET tube secretions noted. Continue antibiotics Continue bronchodilators. Monitor renal function Monitor electrolytes. Supplement as necessary. Magnesium supplementation Monitor hemoglobin Transfuse if less than 7.0 g/dL. SBT/JONNATHAN CPAP with PS 8, PEEP of 5 Patient is awake, alert and following commands. Labs and imaging reviewed. Rest of plan as noted below. Plan: s/p intubation on mechanical ventilator. On AC mode with respiratory rate 24, tidal volume 450, PEEP of 8, FiO2 40%. Titrate FIO2 to keep O2 saturation above 90%. VAP bundle. Daily ABG and CXR while intubated Pressors as necessary for hemodynamic support Titrate to keep mean arterial pressure greater than 65 mmHg Echocardiogram on 11/19/2024: Ejection fraction greater than 55%, left and right atrial enlargement On Ivabradine and digoxin by circus laborer Follow up Cardiology recs Bronchodilators - albuterol. IV antibiotic with vancomycin, levofloxacin Blood cultures ordered Accu-Cheks, ISS Monitor hemoglobin Transfuse if less than 7.0 g/dL. Monitor renal function Monitor electrolytes. Supplement as necessary. Monitor ins and outs. GI prophylaxis. DVT prophylaxis. Prognosis: Poor given patient's multiple co-morbidities. Condition: Critical Rest of plan per hospitalist and other consultants. A total of 35 minutes of critical care time was spent reviewing the patient record, examining the patient, making a diagnostic and therapeutic plan, discussing this plan with the medical personnel, following up on diagnostic studies and following the patient for clinical stability excluding any and all procedures. At least 50% of this time was spent in direct, [id number] contact. Thank you for allowing me to participate in this patient's care. Further recommendations will depend on the patient's clinical course. Please do not hesitate to contact me if you have any questions or concerns. This medical document was created using an electronic medical record system with Chatterous dictation system. Although these documentations are being carefully reviewed, there may still be some phonetic and typographical changes. The errors are purely typographical, due to imperfection on the software program, and do not reflect any compromise in the patient's medical care. Plan discussed with: Other (BENSON Bee) My Orders Orders - SNEHA KUMARI MD Procedure Category Date Status Time Ventilator Orders RT 03/28/25 Transmitted 11:55 Abg W/ Co-Ox RT 03/28/25 Logged 12:55 Visit Coding Pulmonary Billing Provider: SNEHA KUMARI MD Date of Service if different f: Mar 28, 2025 Common Visit Codes: [id number] INP/OBS CARE(HIGH), 99406-[id number] CARE 30-74 MIN SNEHA KUMARI MD Mar 28, 2025 23:02
[2025-03-29] VITALS (96 sets, daily range): BP systolic 87–166; BP diastolic 42–80; PULSE 70–141; RESP 8–26; TEMP 56.5–100.2; O2SAT 92–100
[2025-03-29 03:59] LABS: Hematocrit 29.8 % (36.0-46.0); Hemoglobin 9.7 g/dL (12.2-16.2); Mean Corpuscular Hemoglobin 27.4 pg (28.0-32.0); Mean Corpuscular Volume 83.9 fL (80.0-100.0); Nucleated Red Blood Cells % 0.0 %
[2025-03-29 04:15] LABS: Anion Gap 13 (5-15); Carbon Dioxide 24 mmol/L (20-31); Chloride 102 mmol/L (98-107); Sodium 139 mmol/L (136-145)
[2025-03-29 04:16] LABS: Calcium 8.9 mg/dL (8.7-10.4)
[2025-03-29 04:21] LABS: BUN/Creatinine Ratio 12.1 (10.0-20.0); Blood Urea Nitrogen 12 mg/dL (9-23); Glucose 95 mg/dL (74-106)
[2025-03-29 04:22] LABS: Magnesium 2.1 mg/dL (1.6-2.6)
[2025-03-29 04:36] LABS: Potassium 3.1 mmol/L (3.5-5.1)
--- NOTE | 2025-03-29 06:04 | DVH ---
EXAM: XY CHEST XRAY 1 VIEW HISTORY: on vent COMPARISON: XY CHEST XRAY 1 VIEW on DOS: 03/28/25, XY CHEST PORTABLE on DOS: 03/27/25, XY CHEST PORTABLE on DOS: 03/26/25, XY CHEST XRAY 1 VIEW on DOS: 03/14/25, XY CHEST XRAY 1 VIEW on DOS: 03/14/25 TECHNIQUE: Portable AP view of the chest was performed. FINDINGS: Endotracheal tube is re-identified with its tip 5.2 cm above the brii. OG tube and left chest pacemaker are re-identified. There are interstitial opacities throughout both lungs, improved since the previous chest x-ray. No pneumothorax or consolidative infiltrates. The right costophrenic angle is not imaged here. The heart is not enlarged. IMPRESSION: 1. Mechanical ventilation with tubes and lines as above. 2. Improved bilateral interstitial opacities suggesting improved CHF.
[2025-03-29] MEDS: POTASSIUM CHL 20MEQ/100ML 100 ML IV SCH ×2 (06:05→12:15)
[2025-03-29 07:40] LABS: Base Excess -1.0 mmol/L (-2.0-3.0)
[2025-03-29] MEDS: FUROSEMIDE 20 MG/2 ML VIAL IV ONE (09:05)
--- NOTE | 2025-03-29 10:14 | DVHPN2 ---
Progress Note Date Seen: Mar 29, 2025 Has the PT tested + for MRSA If YES, has PT been informed?: No Medical Necessity Reason Pt with a Central, PICC or Fol: Yes The following are medically ne: Nova Catheter Reason for nova catheter: Strict I&O Subjective Review of Systems: RESPIRATORY:Abnormal Other Systems: Patient seen and examined by myself today in follow-up next line patient remained intubated on ventilator Objective vital signs Vital Sign Date Time Temp Pulse Resp B/P (MAP) Pulse Ox O2 Delivery O2 Flow Rate FiO2 03/29/25 09:46 107 03/29/25 09:46 30 03/29/25 09:46 24 100 Mechanical Ventilator+ 03/29/25 09:45 98.6 111/46 (67) 209.5 03/29/25 04:07 30.0 Total Intake and Output 03/28/25 03/28/25 03/29/25 15:00 23:00 07:00 Intake Total 161.5 ml 517.0 ml 305.0 ml Output Total 1050 ml 1300 ml Balance 161.5 ml -533.0 ml -995.0 ml medications Current Medications Medications Dose Ordered Sig/Long Route Start Time Stop Time Status Last Admin Dose Admin Albuterol 2.5 mg Q6HPRN PRN NEB 03/26/25 04:15 Vancomycin HCl 0 ml @ 0 mls/hr PER PHARMACY IV 03/26/25 04:15 Hydralazine HCl 10 mg Q6HP PRN IV 03/26/25 04:15 Amiodarone HCl 200 mg DAILY NG 03/26/25 10:00 03/29/25 08:15 200 MG Ondansetron HCl 4 mg Q4HP PRN IV 03/26/25 04:15 Enoxaparin Sodium 30 mg DAILY SC 03/26/25 10:00 03/29/25 08:14 30 MG Acetaminophen 650 mg Q6HP PRN PO 03/26/25 04:15 03/27/25 20:27 650 MG Nitroglycerin 0.4 mg Q5MINP PRN SL 03/26/25 04:15 Morphine Sulfate 2 mg Q30M PRN IV 03/26/25 04:15 Midazolam HCl 100 ml @ 1 mls/hr Q24H IV 03/26/25 05:00 03/26/25 05:00 1 MLS/HR Phenylephrine HCl 250 ml @ 30 mls/hr Q8H20M IV 03/26/25 06:30 03/29/25 06:06 30 MLS/HR Fentanyl Citrate 250 ml @ 2.5 mls/hr Q24H IV 03/26/25 06:30 03/28/25 03:43 10 MLS/HR Pantoprazole Sodium 40 mg DAILY IV 03/27/25 10:00 03/29/25 08:14 40 MG Ipratropium [place] 0.5 mg Q6HR NEB 03/26/25 18:00 03/29/25 06:13 0.5 MG Albuterol 2.5 mg Q6HR NEB 03/27/25 18:00 03/29/25 06:13 2.5 MG Clopidogrel Bisulfate 75 mg DAILY PO 03/28/25 10:00 03/29/25 08:15 75 MG Ivabradine 5 mg BID PO 03/27/25 22:00 03/29/25 08:15 5 MG Enteral Nutritional Formula 1,000 ml 40ML/HR GT 03/27/25 16:00 Levofloxacin/ Dextrose 150 ml @ 150 mls/hr Q48H IV 03/30/25 10:00 Vancomycin HCl 100 ml @ 100 mls/hr Q24H IV 03/28/25 20:00 03/28/25 20:25 100 MLS/HR Examination: LUNGS:Normal, CVS:Normal, MSK:Normal laboratory and microbiology Laboratory Tests 03/29/25 02:43 Test 03/29/25 02:43 Range/Units Serum Glucose 95 74-106 mg/dL Microbiology Date/Time Source Procedure Growth Status 03/27/25 04:45 Nose MRSA Screen - Final Complete 03/26/25 00:12 Blood Blood Culture - Preliminary NO GROWTH AFTER 72 HOURS OF INCUBATION. Resulted Problem List/Assessment/Plan Problem List/Assessment/Plan Acute kidney injury superimposed Chronic Kidney Disease stage IIIA secondary hemodynamic mediated Acute on chronic respiratory failure, patient intubated on ventilator COPD exacerbation Chronic diastolic Congestive heart failure Atrial fibrillation Anemia of chronic kidney disease Hypokalemia Recommendations Kidney function resolved back to normal Increased urine output Nova catheter Strict I&Os KCL replacement IV antibiotics IV steroids IV pressors for blood pressure support kidney ultrasound reported bilateral small kidneys I will sign off this case, please reconsult as needed Thank you for the consult Plan discussed with: Patient My Orders My Orders Orders - GRACE DUGAN MD Procedure Category Date Status Time Communication Order ORDERS 03/28/25 Transmitted 10:53 Dietary Evaluation Review Comments: 1. Protein Adjustment: Recommend lower protein intake at ~1 g/kg ABW to support CKD Stage 3 status and reduce renal workload. 2. Enteral Nutrition (EN) If GI tract is accessible, initiate tube feeding (TF): Formula: Glucerna Rate: 40 mL/hr (continuous) Provides: Protein: ~58 g/day (98% of estimated needs) Energy: ~1152 kcal/day (118% of estimated needs) 3. Monitoring & Follow-Up Labs: Monitor renal panel, electrolytes, and relevant nutrition markers. Consults: Follow nephrology and GI recommendations. Reassess PRN: Adjust feeding regimen based on tolerance, labs, and clinical status. Expected Outcomes/Goals: Improing nutrition status, able to have PO feedings with gradual wt gain. GRACE DUGAN MD Mar 29, 2025 10:14
[2025-03-29 11:06] LABS: Base Excess -0.8 mmol/L (-2.0-3.0)
--- NOTE | 2025-03-29 11:51 | MEDREC ---
[facility] ASP Intervention Section I [facility] ASP Intervention: Review courses of therapy (DUE TO PROLONG QTc > 500 (QTC 505 ON 03/26/25) PLEASE CONSIDER SWITCHING LEVOFLOXACIN TO CEFEPIME + DOXYCYLINE IF CLINICALLY RELEVANT ) CLAUDIA PIÑA PHARMACIST Mar 29, 2025 11:51
--- NOTE | 2025-03-29 11:53 | DVHPN2 ---
Progress Note - Dictate Date Seen: Mar 29, 2025 Has the PT tested + for MRSA If YES, has PT been informed?: No Medical Necessity Reason Pt with a Central, PICC or Fol: Yes The following are medically ne: Nova Catheter Reason for nova catheter: Strict I&O Subjective DILATED/ ISCHEMIC CM EFrEF ACUTE DECOMPENSATION S/P DUAL CHAMBER AICD S/P PTCA STENT DIAGONAL HX OF AFIB ACUTE RESP ARREST HYPOCAPNIA COPD DIABETES HTN CKD STAGE II CT OF ABD ENTEROCOLITIS SBO CT HEAD NEGATIVE FOR ACUTE PATHOLOGY CXR POSITIVE INFILTRATE vital signs Vital Sign Date Time Temp Pulse Resp B/P (MAP) Pulse Ox O2 Delivery O2 Flow Rate FiO2 03/29/25 11:24 101 13 121/55 (77) 98 30 03/29/25 10:45 98.8 209.8 03/29/25 09:46 Mechanical Ventilator+ 03/29/25 04:07 30.0 Total Intake and Output 03/28/25 03/28/25 03/29/25 15:00 23:00 07:00 Intake Total 161.5 ml 517.0 ml 305.0 ml Output Total 1050 ml 1300 ml Balance 161.5 ml -533.0 ml -995.0 ml medications Current Medications Medications Dose Ordered Sig/Long Route Start Time Stop Time Status Last Admin Dose Admin Albuterol 2.5 mg Q6HPRN PRN NEB 03/26/25 04:15 Vancomycin HCl 0 ml @ 0 mls/hr PER PHARMACY IV 03/26/25 04:15 Hydralazine HCl 10 mg Q6HP PRN IV 03/26/25 04:15 Amiodarone HCl 200 mg DAILY NG 03/26/25 10:00 03/29/25 08:15 200 MG Ondansetron HCl 4 mg Q4HP PRN IV 03/26/25 04:15 Enoxaparin Sodium 30 mg DAILY SC 03/26/25 10:00 03/29/25 08:14 30 MG Acetaminophen 650 mg Q6HP PRN PO 03/26/25 04:15 03/27/25 20:27 650 MG Nitroglycerin 0.4 mg Q5MINP PRN SL 03/26/25 04:15 Morphine Sulfate 2 mg Q30M PRN IV 03/26/25 04:15 Midazolam HCl 100 ml @ 1 mls/hr Q24H IV 03/26/25 05:00 03/26/25 05:00 1 MLS/HR Phenylephrine HCl 250 ml @ 30 mls/hr Q8H20M IV 03/26/25 06:30 03/29/25 06:06 30 MLS/HR Fentanyl Citrate 250 ml @ 2.5 mls/hr Q24H IV 03/26/25 06:30 03/28/25 03:43 10 MLS/HR Pantoprazole Sodium 40 mg DAILY IV 03/27/25 10:00 03/29/25 08:14 40 MG Ipratropium [place] 0.5 mg Q6HR NEB 03/26/25 18:00 03/29/25 11:24 0.5 MG Albuterol 2.5 mg Q6HR NEB 03/27/25 18:00 03/29/25 11:24 2.5 MG Clopidogrel Bisulfate 75 mg DAILY PO 03/28/25 10:00 03/29/25 08:15 75 MG Ivabradine 5 mg BID PO 03/27/25 22:00 03/29/25 08:15 5 MG Enteral Nutritional Formula 1,000 ml 40ML/HR GT 03/27/25 16:00 Levofloxacin/ Dextrose 150 ml @ 150 mls/hr Q48H IV 03/30/25 10:00 Vancomycin HCl 100 ml @ 100 mls/hr Q24H IV 03/28/25 20:00 03/28/25 20:25 100 MLS/HR laboratory and microbiology Laboratory Tests 03/29/25 02:43 Test 03/29/25 02:43 Range/Units Serum Glucose 95 74-106 mg/dL Problem List DILATED/ ISCHEMIC CM EFrEF ACUTE DECOMPENSATION S/P DUAL CHAMBER AICD S/P PTCA STENT DIAGONAL HX OF AFIB ACUTE RESP ARREST HYPOCAPNIA COPD DIABETES HTN CKD STAGE II CT OF ABD ENTEROCOLITIS SBO CT HEAD NEGATIVE FOR ACUTE PATHOLOGY CXR POSITIVE INFILTRATE Assessment/Plan RESP STATUS IMPROVED BUT STILL APNEIC NEURO EXAM CONT SUPPORTIVE THERAPY DIURESIS DIG CORLANOR MONITOR k IV FLUID ABX NUTRITIONAL SUPPORT TESTOSTERONE X 1 PHARMACY YET TP PROVIDE TRT ORDERED INCREASE CALORIC INTAKE CORRECT HYPOKALEMIA LEUKOCYTOSIS IMPROVING MONITOR H?H CONSIDER EPOGEN Dietary Evaluation Review Comments: 1. Protein Adjustment: Recommend lower protein intake at ~1 g/kg ABW to support CKD Stage 3 status and reduce renal workload. 2. Enteral Nutrition (EN) If GI tract is accessible, initiate tube feeding (TF): Formula: Glucerna Rate: 40 mL/hr (continuous) Provides: Protein: ~58 g/day (98% of estimated needs) Energy: ~1152 kcal/day (118% of estimated needs) 3. Monitoring & Follow-Up Labs: Monitor renal panel, electrolytes, and relevant nutrition markers. Consults: Follow nephrology and GI recommendations. Reassess PRN: Adjust feeding regimen based on tolerance, labs, and clinical status. Expected Outcomes/Goals: Improing nutrition status, able to have PO feedings with gradual wt gain. Plan discussed with: Daughter, Other Critical Care Time(min): 35 WILEY SALINAS MD Mar 29, 2025 11:53
[2025-03-29] MEDS ORDERED: POTASSIUM CHL 20MEQ/100ML 100 ML IV SCH (12:00)
--- NOTE | 2025-03-29 16:18 | DVHPNRES ---
Progress Note Date Seen: Mar 29, 2025 Resident Creating Document: MARIELY PORTER RESIDENT Has the PT tested + for MRSA If YES, has PT been informed?: No Medical Necessity Reason Pt with a Central, PICC or Fol: Yes The following are medically ne: Nova Catheter Reason for nova catheter: Strict I&O Subjective Review of Systems Patient is 54-year-old female for history of pulmonary artery hypertension, HFrEF, COPD, sick sinus syndrome status post pacemaker, atrial fibrillation, diabetes mellitus, hyperlipidemia, hypertension who brought to the hospital with a chief complaint of shortness of breath. Patient was recently in the hospital due to shortness of breath, difficulty breathing, low oxygen saturation at 33%. As per daughter she started suddenly had trouble breathing, and then called 911. Patient was intubated on 03/26/2025. Past surgical history: bilateral tubal ligation Family history: Reviewed, noncontributory Personal history: Smoker, no history of alcohol or drug use. CKD STAGE II 03/27/25: Patient seen in ICU. Patient is mechanically ventilated, intubated, but is able to open her eyes, follow commands, chest x-ray looks better today. She is on minimal vent settings. CPAP tomorrow. 03/28/25: Patient seen in ICU. Continued to be on mechanical ventilation. On sedation. Chest x-rays worsened compared to yesterday . More tracheal secretion. Washing per CPAP to [place] tomorrow. 03/29/2025: Patient seen in ICU, patient was extubated today. Is on 8 L oxygen and is tolerating well. Patient had hypokalemia which was replaced. Patient is off pressors, sedation Objective vital signs Vital Sign Date Time Temp Pulse Resp B/P (MAP) Pulse Ox O2 Delivery O2 Flow Rate FiO2 03/29/25 15:45 99.5 123 15 166/70 (102) 93 211.1 03/29/25 15:44 Cool Aerosol 8 35 35 Total Intake and Output 03/28/25 03/28/25 03/29/25 15:00 23:00 07:00 Intake Total 161.5 ml 517.0 ml 305.0 ml Output Total 1050 ml 1300 ml Balance 161.5 ml -533.0 ml -995.0 ml medications Current Medications Medications Dose Ordered Sig/Long Route Start Time Stop Time Status Last Admin Dose Admin Albuterol 2.5 mg Q6HPRN PRN NEB 03/26/25 04:15 Vancomycin HCl 0 ml @ 0 mls/hr PER PHARMACY IV 03/26/25 04:15 Hydralazine HCl 10 mg Q6HP PRN IV 03/26/25 04:15 Amiodarone HCl 200 mg DAILY NG 03/26/25 10:00 03/29/25 08:15 200 MG Ondansetron HCl 4 mg Q4HP PRN IV 03/26/25 04:15 Enoxaparin Sodium 30 mg DAILY SC 03/26/25 10:00 03/29/25 08:14 30 MG Acetaminophen 650 mg Q6HP PRN PO 03/26/25 04:15 03/27/25 20:27 650 MG Nitroglycerin 0.4 mg Q5MINP PRN SL 03/26/25 04:15 Morphine Sulfate 2 mg Q30M PRN IV 03/26/25 04:15 Midazolam HCl 100 ml @ 1 mls/hr Q24H IV 03/26/25 05:00 03/26/25 05:00 1 MLS/HR Phenylephrine HCl 250 ml @ 30 mls/hr Q8H20M IV 03/26/25 06:30 03/29/25 06:06 30 MLS/HR Fentanyl Citrate 250 ml @ 2.5 mls/hr Q24H IV 03/26/25 06:30 03/28/25 03:43 10 MLS/HR Pantoprazole Sodium 40 mg DAILY IV 03/27/25 10:00 03/29/25 08:14 40 MG Ipratropium [place] 0.5 mg Q6HR NEB 03/26/25 18:00 03/29/25 11:24 0.5 MG Albuterol 2.5 mg Q6HR NEB 03/27/25 18:00 03/29/25 11:24 2.5 MG Clopidogrel Bisulfate 75 mg DAILY PO 03/28/25 10:00 03/29/25 08:15 75 MG Ivabradine 5 mg BID PO 03/27/25 22:00 03/29/25 08:15 5 MG Enteral Nutritional Formula 1,000 ml 40ML/HR GT 03/27/25 16:00 Levofloxacin/ Dextrose 150 ml @ 150 mls/hr Q48H IV 03/30/25 10:00 Vancomycin HCl 100 ml @ 100 mls/hr Q24H IV 03/28/25 20:00 03/28/25 20:25 100 MLS/HR Examination General: Intubated, mechanically ventilated but is able to open her eyes and follow commands. HEENT: Normocephalic, atraumatic, moist mucous membranes Respiratory/pulmonary: Right-sided crackles, left-sided mild crackles, no wheezing. Cardiovascular: Normal heart sounds S1 and S2 with no associated murmurs Abdomen: Abdomen nondistended, there is no pain to palpation in any of the abdominal quadrants, no palpable masses. Extremities: There is no peripheral edema present at the lower extremities. Peripheral Pulses: 3+ Radial (R). 3+ Radial (L). 3+ Dorsalis pedis (R). 3+ Dorsalis pedis(L) Skin: No rashes or pruritus, there is no sacral edema present at this time. Neurological: Intact cranial nerves with no focal neurologic deficits laboratory and microbiology Laboratory Tests 03/29/25 02:43 Test 03/29/25 02:43 Range/Units Serum Glucose 95 74-106 mg/dL Microbiology Date/Time Source Procedure Growth Status 03/27/25 04:45 Nose MRSA Screen - Final Complete 03/26/25 00:12 Blood Blood Culture - Preliminary NO GROWTH AFTER 72 HOURS OF INCUBATION. Resulted Problem List/Assessment/Plan Problem List/Assessment/Plan Neurology Acute metabolic encephalopathy - Stable Cardiology Acute HFpEF Paroxysmal atrial fibrillation History of hypertension -IV Lasix 20 mg BID -continue to monitor electrolytes: Magnesium, potassium. -echocardiogram on 11/19/2024: Ejection fraction greater than 55%, left and right atrial enlargement -amiodarone 200 mg q.12. Patient used to take Eliquis before, given history of bleeding. Patient is only on Plavix. -Plavix 75 mg daily -cardiology consultation -strict I&O -BNP: 354 -Ivabrandine and digoxin by pourer Respiratory Acute on chronic hypoxic and hypercapnic respiratory failure -ventilation: Respiratory rate 20, tidal volume 400, FiO2 35%, peep five. -IV antibiotic with vancomycin, levofloxacin - blood culture ordered -albuterol 2.5 mg nebulization q.6 Pneumonia Gram-positive versus negative -see the management of respiratory failure Pulmonary hypertension -avoid any antihypertensive medication Chronic obstructive pulmonary disease exacerbation -continue management of respiratory failure Renal/ Electrolytes CKD STAGE II Infection Septic shock ?due to pneumonia Gram-positive versus negative -IV antibiotic with cefepime -maintain map greater than 65 -respiratory culture growing young colonies -urinalysis no signs of active UTI. Hematology Normocytic, normochromic anemia -hemoglobin 11.3 -continue to monitor. -iron panel Endocrine Diabetes mellitus type 2 HGB A1c 6% on 03/12/2025 Dyslipidemia -Insulin sliding scale Lines: 2 peripheral IV lines Nova catheter Intubated on 03/26/2025, Extubated on 03/29/25 PUD prophylaxis with Protonix DVT prophylaxis with Lovenox Critical care time spent greater than 84 minute. Plan discussed with Dr. Hidalgo Plan discussed with: Patient, Daughter My Orders My Orders Orders - MARIELY PORTER RESIDENT Procedure Category Date Status Time Ventilator Orders RT 03/29/25 Transmitted 10:16 Abg W/ Co-Ox RT 03/29/25 Logged 10:46 Complete Blood Count LAB 03/30/25 Verified 04:00 Comprehensive LAB 03/30/25 Verified Metabolic Panel 04:00 Chest Xray 1 View XY 03/30/25 Logged 04:00 Abg W/ Co-Ox RT 03/30/25 Logged 04:00 Magnesium LAB 03/30/25 Verified 04:00 Dietary Evaluation Review Comments: 1. Protein Adjustment: Recommend lower protein intake at ~1 g/kg ABW to support CKD Stage 3 status and reduce renal workload. 2. Enteral Nutrition (EN) If GI tract is accessible, initiate tube feeding (TF): Formula: Glucerna Rate: 40 mL/hr (continuous) Provides: Protein: ~58 g/day (98% of estimated needs) Energy: ~1152 kcal/day (118% of estimated needs) 3. Monitoring & Follow-Up Labs: Monitor renal panel, electrolytes, and relevant nutrition markers. Consults: Follow nephrology and GI recommendations. Reassess PRN: Adjust feeding regimen based on tolerance, labs, and clinical status. Expected Outcomes/Goals: Improing nutrition status, able to have PO feedings with gradual wt gain. MARIELY PORTER RESIDENT Mar 29, 2025 16:18
[2025-03-29] MEDS: hydrALAZINE HCL 20 MG/ML VL IV PRN (17:49)
[2025-03-29] MEDS: MORPHINE SULFATE 4 MG/ML SYR/VIAL IM ONE (21:45)
--- NOTE | 2025-03-29 23:12 | DVHPN2 ---
Subjective [facility] DOS: 03/29/2025 Patient seen and examined at bedside. Intubated on mechanical ventilator. Overnight events reviewed. Changes from previous H/P or p: No Changes Objective Vitals Vital Signs Date Time Temp Pulse Resp B/P (MAP) Pulse Ox O2 Delivery O2 Flow Rate FiO2 03/29/25 22:00 56.5 131 20 130/60 (83) 96 133.7 03/29/25 22:00 Nasal Cannula* 4 36 Intake/Output Intake and Output 03/29/25 07:00 Intake Total 983.5 ml Output Total 2350 ml Balance -1366.5 ml Intake Oral 60 ml IV Total 797.5 ml Tube Feeding 126 ml Output Urine Total 2350 ml Exam Gen.: Patient lying in bed in medical ICU. Intubated on mechanical ventilator. Head: Normocephalic, atraumatic. Eyes: PERRLA. Ears: Normal external anatomy. Throat: Endotracheal tube and orogastric tube in place. Neck: Supple, trachea midline. Chest: Transmitted breath sounds bilaterally. Decreased air entry bilaterally. No wheezing. Bibasilar crackles. Cardiovascular: Positive S1, positive S2. Regular rate and rhythm. Abdomen: Positive bowel sounds in all 4 quadrants. Soft, nontender, nondistended. : Salas in place. Normal external genitalia. Rectal: Deferred. Skin: Warm, dry. Intact. Extremities: 2+ radial pulses bilaterally. No lower extremity edema. Neuro: Off sedation. Awake, alert, following commands. Medications Current Medications Medications Dose Ordered Sig/Long Route Start Time Stop Time Status Last Admin Dose Admin Albuterol 2.5 mg Q6HPRN PRN NEB 03/26/25 04:15 Vancomycin HCl 0 ml @ 0 mls/hr PER PHARMACY IV 03/26/25 04:15 Hydralazine HCl 10 mg Q6HP PRN IV 03/26/25 04:15 03/29/25 17:49 10 MG Amiodarone HCl 200 mg DAILY NG 03/26/25 10:00 03/29/25 08:15 200 MG Ondansetron HCl 4 mg Q4HP PRN IV 03/26/25 04:15 Enoxaparin Sodium 30 mg DAILY SC 03/26/25 10:00 03/29/25 08:14 30 MG Acetaminophen 650 mg Q6HP PRN PO 03/26/25 04:15 03/29/25 17:49 650 MG Nitroglycerin 0.4 mg Q5MINP PRN SL 03/26/25 04:15 Morphine Sulfate 2 mg Q30M PRN IV 03/26/25 04:15 Midazolam HCl 100 ml @ 1 mls/hr Q24H IV 03/26/25 05:00 03/26/25 05:00 1 MLS/HR Phenylephrine HCl 250 ml @ 30 mls/hr Q8H20M IV 03/26/25 06:30 03/29/25 06:06 30 MLS/HR Fentanyl Citrate 250 ml @ 2.5 mls/hr Q24H IV 03/26/25 06:30 03/28/25 03:43 10 MLS/HR Pantoprazole Sodium 40 mg DAILY IV 03/27/25 10:00 03/29/25 08:14 40 MG Ipratropium [place] 0.5 mg Q6HR NEB 03/26/25 18:00 03/29/25 19:01 0.5 MG Albuterol 2.5 mg Q6HR NEB 03/27/25 18:00 03/29/25 19:01 2.5 MG Clopidogrel Bisulfate 75 mg DAILY PO 03/28/25 10:00 03/29/25 08:15 75 MG Ivabradine 5 mg BID PO 03/27/25 22:00 03/29/25 21:58 5 MG Enteral Nutritional Formula 1,000 ml 40ML/HR GT 03/27/25 16:00 Levofloxacin/ Dextrose 150 ml @ 150 mls/hr Q48H IV 03/30/25 10:00 Vancomycin HCl 100 ml @ 100 mls/hr Q24H IV 03/28/25 20:00 03/29/25 20:02 100 MLS/HR Laboratory Results Laboratory Tests 03/29/25 02:43 Chemistry Test 03/29/25 02:43 Calcium Level 8.9 mg/dL (8.7-10.4) Magnesium Level 2.1 mg/dL (1.6-2.6) Urinalysis Test 03/27/25 16:15 Urine Color Light-yellow (Yellow) Urine Clarity Turbid (Clear) H Urine pH 5.0 (5.0-9.0) Urine Specific [place] 1.016 (1.001-1.035) Urine Protein Trace (Negative) H Urine Ketones Negative (Negative) Urine Blood Negative /uL (Negative) Urine Nitrite Negative (Negative) Urine Bilirubin Negative (Negative) Urine Urobilinogen Normal mg/dL (Negative) Urine Leukocyte Esterase Negative /uL (Negative) Urine RBC 1 /hpf (0 - 4) Urine Microscopic WBC 9 /HPF (0-5) H Urine Squamous Epithelial Cells None seen /hpf (<5) Urine Bacteria Few /hpf (None Seen) H Urine Mucus Few (None Seen) Urine Creatinine 56.51 mg/dL (30.0-125.0) Urine Protein/Creatinine Ratio 0.88 Urine Sodium 29 mmol/L (40-220) L Urine Glucose 1+ mg/dL (Normal) H Urine Total Protein 49.5 mg/dL (1-14) H Blood Gas Results Test 03/29/25 07:30 03/29/25 11:01 Arterial Blood pH 7.410 (7.350-7.450) 7.319 (7.350-7.450) FiO2 % 30.0 30.0 Microbiology Microbiology Date/Time Source Procedure Growth Status 03/27/25 04:45 Nose MRSA Screen - Final Complete 03/26/25 00:12 Blood Blood Culture - Preliminary NO GROWTH AFTER 72 HOURS OF INCUBATION. Resulted Assessment/Plan Assessment/Plan Impression: Acute on chronic hypoxic and hypercapnic respiratory failure On mechanical ventilator Pneumonia, Gram-positive versus Gram negative Pulmonary hypertension Chronic obstructive pulmonary disease exacerbation Acute metabolic encephalopathy Acute HFpEF Paroxysmal atrial fibrillation Anemia Events: Patient is awake, alert and following commands. Patient on CPAP. Lasix 20 mg IVP given for diuresis Improved urine output Chest x-ray today demonstrates improved bilateral interstitial opacities, suggesting improved CHF. CPAP tolerated, ABG and weaning parameters reviewed. Patient is stable for extubation. Off pressors, hemodynamically stable. Continue antibiotics Continue bronchodilators. Monitor renal function Monitor electrolytes. Supplement as necessary. Potassium supplementation Monitor hemoglobin Transfuse if less than 7.0 g/dL. Labs and imaging reviewed. Plan: s/p intubation on mechanical ventilator. On AC mode with respiratory rate 24, tidal volume 450, PEEP of 8, FiO2 40%. Titrate FIO2 to keep O2 saturation above 90%. VAP bundle. Daily ABG and CXR while intubated Pressors as necessary for hemodynamic support Titrate to keep mean arterial pressure greater than 65 mmHg Echocardiogram on 11/19/2024: Ejection fraction greater than 55%, left and right atrial enlargement On Ivabradine and digoxin by cardiology coordinator Follow up Cardiology recs Bronchodilators - albuterol. IV antibiotic with vancomycin, levofloxacin Blood cultures ordered Accu-Cheks, ISS Monitor hemoglobin Transfuse if less than 7.0 g/dL. Monitor renal function Monitor electrolytes. Supplement as necessary. Monitor ins and outs. GI prophylaxis. DVT prophylaxis. Prognosis: Poor given patient's multiple co-morbidities. Condition: Critical Rest of plan per hospitalist and other consultants. A total of 35 minutes of critical care time was spent reviewing the patient record, examining the patient, making a diagnostic and therapeutic plan, discussing this plan with the medical personnel, following up on diagnostic studies and following the patient for clinical stability excluding any and all procedures. At least 50% of this time was spent in direct, [id number] contact. Thank you for allowing me to participate in this patient's care. Further recommendations will depend on the patient's clinical course. Please do not hesitate to contact me if you have any questions or concerns. This medical document was created using an electronic medical record system with [employer] dictation system. Although these documentations are being carefully reviewed, there may still be some phonetic and typographical changes. The errors are purely typographical, due to imperfection on the software program, and do not reflect any compromise in the patient's medical care. Plan discussed with: Other (BENSON Bee) My Orders Orders - SNEHA KUMARI MD Procedure Category Date Status Time Extubate [facility] 03/29/25 In Process 12:56 Visit Coding Pulmonary Billing Provider: SNEHA KUMARI MD Date of Service if different f: Mar 29, 2025 Common Visit Codes: [id number] INP/OBS CARE(HIGH), [id number] CARE 30-74 MIN SNEHA KUMARI MD Mar 29, 2025 23:12
[2025-03-30] VITALS (37 sets, daily range): BP systolic 103–154; BP diastolic 39–74; PULSE 77–116; RESP 9–20; TEMP 96.1–99.1; O2SAT 86–100
[2025-03-30 03:31] LABS: Hematocrit 28.8 % (36.0-46.0); Hemoglobin 9.3 g/dL (12.2-16.2); Mean Corpuscular Hemoglobin 27.0 pg (28.0-32.0); Mean Corpuscular Volume 83.5 fL (80.0-100.0); Nucleated Red Blood Cells % 0.1 %
[2025-03-30 03:46] LABS: Alanine Aminotransferase 24 U/L (7-40); Albumin 3.6 g/dL (3.2-4.8); Alkaline Phosphatase 75 U/L (46-116); Anion Gap 12 (5-15); BUN/Creatinine Ratio 12.8 (10.0-20.0); Blood Urea Nitrogen 11 mg/dL (9-23); Calcium 9.0 mg/dL (8.7-10.4); Carbon Dioxide 23 mmol/L (20-31); Chloride 104 mmol/L (98-107); Glucose 96 mg/dL (74-106); Magnesium 1.8 mg/dL (1.6-2.6); Potassium 4.4 mmol/L (3.5-5.1); Sodium 139 mmol/L (136-145); Total Protein 6.2 g/dL (5.7-8.2)
[2025-03-30 03:47] LABS: Bilirubin, Total 0.4 mg/dL (0.2-1.0)
--- NOTE | 2025-03-30 04:57 | DVH ---
CHEST RADIOGRAPH Indication: s/p extubation Technique: Single frontal view of the chest was obtained COMPARISON: XY CHEST XRAY 1 VIEW on DOS: 03/29/25, XY CHEST XRAY 1 VIEW on DOS: 03/28/25, XY CHEST PORTABLE on DOS: 03/27/25, XY CHEST PORTABLE on DOS: 03/26/25, XY CHEST XRAY 1 VIEW on DOS: 03/14/25 FINDINGS: Lines and Tubes: Left chest pacemaker. Lungs: Increased multifocal airspace disease. Pleura: No effusion. No pneumothorax. Cardiomediastinal contours: Unremarkable Bones: Unremarkable IMPRESSION: Increased multifocal airspace disease.
[2025-03-30] MEDS: MAGNESIUM SULFATE 1GM/100ML 100 ML IV ONE (06:55)
[2025-03-30] MEDS: ONDANSETRON HCL 4 MG/2 ML VIAL IV PRN (09:41)
--- NOTE | 2025-03-30 12:06 | DVHPNRES ---
Progress Note Date Seen: Mar 30, 2025 Resident Creating Document: MARIELY PORTER RESIDENT Has the PT tested + for MRSA If YES, has PT been informed?: No Medical Necessity Reason Pt with a Central, PICC or Fol: Yes The following are medically ne: Nova Catheter Reason for nova catheter: Strict I&O Subjective Review of Systems Patient is 54-year-old female for history of pulmonary artery hypertension, HFrEF, COPD, sick sinus syndrome status post pacemaker, atrial fibrillation, diabetes mellitus, hyperlipidemia, hypertension who brought to the hospital with a chief complaint of shortness of breath. Patient was recently in the hospital due to shortness of breath, difficulty breathing, low oxygen saturation at 33%. As per daughter she started suddenly had trouble breathing, and then called 911. Patient was intubated on 03/26/2025. Past surgical history: bilateral tubal ligation Family history: Reviewed, noncontributory Personal history: Smoker, no history of alcohol or drug use. CKD STAGE II 03/27/25: Patient seen in ICU. Patient is mechanically ventilated, intubated, but is able to open her eyes, follow commands, chest x-ray looks better today. She is on minimal vent settings. CPAP tomorrow. 03/28/25: Patient seen in ICU. Continued to be on mechanical ventilation. On sedation. Chest x-rays worsened compared to yesterday . More tracheal secretion. [facility] 03[facility]: Patient seen in ICU, patient was extubated today. Is on 8 L oxygen and is tolerating well. Patient had hypokalemia which was replaced. Patient is off pressors, sedation 03/30/2025 patient seen in ICU, patient was extubated yesterday, is on 3 L oxygen, is tolerating well, patient had 2 episodes of vomiting yesterday, is feeling nauseous today swallow eval done PT evaluation to be done. Patient downgraded to tele, started on Jardiance, lisinopril 10, Lasix 20. Swallow eval Objective vital signs Vital Sign Date Time Temp Pulse Resp B/P (MAP) Pulse Ox O2 Delivery O2 Flow Rate FiO2 03/30/25 11:16 88 13 99 03/30/25 11:10 Nasal Cannula* 2 28 03/30/25 11:00 99.0 118/64 (82) 210.2 Total Intake and Output 03/29/25 03/29/25 03/30/25 15:00 23:00 07:00 Intake Total 50 ml 100 ml 20 ml Output Total 400 ml 850 ml Balance 50 ml -300 ml -830 ml medications Current Medications Medications Dose Ordered Sig/Long Route Start Time Stop Time Status Last Admin Dose Admin Albuterol 2.5 mg Q6HPRN PRN NEB 03/26/25 04:15 Vancomycin HCl 0 ml @ 0 mls/hr PER PHARMACY IV 03/26/25 04:15 Hydralazine HCl 10 mg Q6HP PRN IV 03/26/25 04:15 03/29/25 17:49 10 MG Amiodarone HCl 200 mg DAILY NG 03/26/25 10:00 03/30/25 10:30 200 MG Ondansetron HCl 4 mg Q4HP PRN IV 03/26/25 04:15 03/30/25 09:41 4 MG Enoxaparin Sodium 30 mg DAILY SC 03/26/25 10:00 03/30/25 09:30 30 MG Acetaminophen 650 mg Q6HP PRN PO 03/26/25 04:15 03/29/25 17:49 650 MG Nitroglycerin 0.4 mg Q5MINP PRN SL 03/26/25 04:15 Morphine Sulfate 2 mg Q30M PRN IV 03/26/25 04:15 Midazolam HCl 100 ml @ 1 mls/hr Q24H IV 03/26/25 05:00 03/26/25 05:00 1 MLS/HR Phenylephrine HCl 250 ml @ 30 mls/hr Q8H20M IV 03/26/25 06:30 03/29/25 06:06 30 MLS/HR Fentanyl Citrate 250 ml @ 2.5 mls/hr Q24H IV 03/26/25 06:30 03/28/25 03:43 10 MLS/HR Pantoprazole Sodium 40 mg DAILY IV 03/27/25 10:00 03/30/25 09:30 40 MG Ipratropium [place] 0.5 mg Q6HR NEB 03/26/25 18:00 03/30/25 11:10 0.5 MG Albuterol 2.5 mg Q6HR NEB 03/27/25 18:00 03/30/25 11:10 2.5 MG Clopidogrel Bisulfate 75 mg DAILY PO 03/28/25 10:00 03/30/25 10:30 75 MG Ivabradine 5 mg BID PO 03/27/25 22:00 03/30/25 10:30 5 MG Enteral Nutritional Formula 1,000 ml 40ML/HR GT 03/27/25 16:00 Levofloxacin/ Dextrose 150 ml @ 150 mls/hr Q48H IV 03/30/25 10:00 03/30/25 09:30 150 MLS/HR Vancomycin HCl 100 ml @ 100 mls/hr Q24H IV 03/28/25 20:00 03/29/25 20:02 100 MLS/HR Examination General: extubated, alert and orient x4 HEENT: Normocephalic, atraumatic, moist mucous membranes Respiratory/pulmonary: Right-sided crackles, left-sided mild crackles, no wheezing. Cardiovascular: Normal heart sounds S1 and S2 with no associated murmurs Abdomen: Abdomen nondistended, there is no pain to palpation in any of the abdominal quadrants, no palpable masses. Extremities: There is no peripheral edema present at the lower extremities. Peripheral Pulses: 3+ Radial (R). 3+ Radial (L). 3+ Dorsalis pedis (R). 3+ Dorsalis pedis(L) Skin: sacral ulcer stage I present Neurological: Intact cranial nerves with no focal neurologic deficits laboratory and microbiology Laboratory Tests 03/30/25 03:00 Test 03/30/25 03:00 Range/Units Serum Glucose 96 74-106 mg/dL Microbiology Date/Time Source Procedure Growth Status 03/27/25 04:45 Nose MRSA Screen - Final Complete 03/26/25 00:12 Blood Blood Culture - Preliminary NO GROWTH AFTER 72 HOURS OF INCUBATION. Resulted Problem List/Assessment/Plan Problem List/Assessment/Plan Neurology Acute metabolic encephalopathy - Stable Cardiology Acute HFpEF Paroxysmal atrial fibrillation History of hypertension -continue to monitor electrolytes: Magnesium, potassium. -echocardiogram on 11/19/2024: Ejection fraction greater than 55%, left and right atrial enlargement -amiodarone 200 mg q.12. Patient used to take Eliquis before, given history of bleeding. Patient is only on Plavix. -Plavix 75 mg daily -strict I&O -BNP: 354 - Ivabrandine, lisnopril, jardiance, lasix given Respiratory Acute on chronic hypoxic and hypercapnic respiratory failure - ventilation: Respiratory rate 20, tidal volume 400, FiO2 35%, peep five. - IV antibiotic with vancomycin, levofloxacin - blood culture ordered - albuterol 2.5 mg nebulization q.6 Pneumonia Gram-positive versus negative -see the management of respiratory failure Pulmonary hypertension -avoid any antihypertensive medication Chronic obstructive pulmonary disease exacerbation -continue management of respiratory failure Renal/ Electrolytes JEANIE on CKD STAGE II Hypokalemia Infection Septic shock ?due to pneumonia Gram-positive versus negative -IV antibiotic with vancomycin, levofloxacin -maintain map greater than 65 -respiratory culture negative -urinalysis no signs of active UTI. Hematology Normocytic, normochromic anemia -hemoglobin 11.3 -continue to monitor. -iron panel Endocrine Diabetes mellitus type 2 HGB A1c 6% on 03/12/2025 Dyslipidemia -Insulin sliding scale Lines: 2 peripheral IV lines Nova catheter Intubated on 03/26/2025, Extubated on 03/29/25 PUD prophylaxis with Protonix DVT prophylaxis with Lovenox Diet : Purred Critical care time spent greater than 44 minute. Plan discussed with Plan discussed with: Patient, Spouse My Orders My Orders Orders - MARIELY PORTER Procedure Category Date Status Time Chest Xray 1 View XY 03/30/25 Resulted 04:00 Abg W/ Co-Ox RT 03/30/25 Logged 04:00 Pt Request For Service PT 03/30/25 Logged 08:44 * Swallow Request ST 03/30/25 Transmitted 08:44 Dietary Evaluation Review Comments: 1. Protein Adjustment: Recommend lower protein intake at ~1 g/kg ABW to support CKD Stage 3 status and reduce renal workload. 2. Enteral Nutrition (EN) If GI tract is accessible, initiate tube feeding (TF): Formula: Glucerna Rate: 40 mL/hr (continuous) Provides: Protein: ~58 g/day (98% of estimated needs) Energy: ~1152 kcal/day (118% of estimated needs) 3. Monitoring & Follow-Up Labs: Monitor renal panel, electrolytes, and relevant nutrition markers. Consults: Follow nephrology and GI recommendations. Reassess PRN: Adjust feeding regimen based on tolerance, labs, and clinical status. Expected Outcomes/Goals: Improing nutrition status, able to have PO feedings with gradual wt gain. Date of Service: Mar 30, 2025 Billing Provider: LINDA FLORES MD Common Visit Codes: [id number] CARE 30-74 MIN MARIELY PORTER Mar 30, 2025 12:06 LINDA FLORES MD Mar 31, 2025 14:52
--- NOTE | 2025-03-30 12:56 | DVHPN2 ---
Progress Note - Dictate Date Seen: Mar 30, 2025 Has the PT tested + for MRSA If YES, has PT been informed?: No Medical Necessity Reason Pt with a Central, PICC or Fol: Yes The following are medically ne: Nova Catheter Reason for nova catheter: Strict I&O Subjective DILATED/ ISCHEMIC CM EFrEF ACUTE DECOMPENSATION S/P DUAL CHAMBER AICD S/P PTCA STENT DIAGONAL HX OF AFIB ACUTE RESP ARREST HYPOCAPNIA COPD DIABETES HTN CKD STAGE II CT OF ABD ENTEROCOLITIS SBO CT HEAD NEGATIVE FOR ACUTE PATHOLOGY CXR POSITIVE INFILTRATE vital signs Vital Sign Date Time Temp Pulse Resp B/P (MAP) Pulse Ox O2 Delivery O2 Flow Rate FiO2 03/30/25 11:16 88 13 99 03/30/25 11:10 Nasal Cannula* 2 28 03/30/25 11:00 99.0 118/64 (82) 210.2 Total Intake and Output 03/29/25 03/29/25 03/30/25 15:00 23:00 07:00 Intake Total 50 ml 100 ml 20 ml Output Total 400 ml 850 ml Balance 50 ml -300 ml -830 ml medications Current Medications Medications Dose Ordered Sig/Long Route Start Time Stop Time Status Last Admin Dose Admin Albuterol 2.5 mg Q6HPRN PRN NEB 03/26/25 04:15 Vancomycin HCl 0 ml @ 0 mls/hr PER PHARMACY IV 03/26/25 04:15 Hydralazine HCl 10 mg Q6HP PRN IV 03/26/25 04:15 03/29/25 17:49 10 MG Amiodarone HCl 200 mg DAILY NG 03/26/25 10:00 03/30/25 10:30 200 MG Ondansetron HCl 4 mg Q4HP PRN IV 03/26/25 04:15 03/30/25 09:41 4 MG Enoxaparin Sodium 30 mg DAILY SC 03/26/25 10:00 03/30/25 09:30 30 MG Acetaminophen 650 mg Q6HP PRN PO 03/26/25 04:15 03/29/25 17:49 650 MG Nitroglycerin 0.4 mg Q5MINP PRN SL 03/26/25 04:15 Morphine Sulfate 2 mg Q30M PRN IV 03/26/25 04:15 Midazolam HCl 100 ml @ 1 mls/hr Q24H IV 03/26/25 05:00 11/6/25 05:00 1 MLS/HR Phenylephrine HCl 250 ml @ 30 mls/hr Q8H20M IV 03/26/25 06:30 03/29/25 06:06 30 MLS/HR Fentanyl Citrate 250 ml @ 2.5 mls/hr Q24H IV 03/26/25 06:30 03/28/25 03:43 10 MLS/HR Pantoprazole Sodium 40 mg DAILY IV 03/27/25 10:00 03/30/25 09:30 40 MG Ipratropium [place] 0.5 mg Q6HR NEB 03/26/25 18:00 03/30/25 11:10 0.5 MG Albuterol 2.5 mg Q6HR NEB 03/27/25 18:00 03/30/25 11:10 2.5 MG Clopidogrel Bisulfate 75 mg DAILY PO 03/28/25 10:00 03/30/25 10:30 75 MG Ivabradine 5 mg BID PO 03/27/25 22:00 03/30/25 10:30 5 MG Enteral Nutritional Formula 1,000 ml 40ML/HR GT 03/27/25 16:00 Levofloxacin/ Dextrose 150 ml @ 150 mls/hr Q48H IV 03/30/25 10:00 03/30/25 09:30 150 MLS/HR Vancomycin HCl 100 ml @ 100 mls/hr Q24H IV 03/28/25 20:00 03/29/25 20:02 100 MLS/HR laboratory and microbiology Laboratory Tests 03/30/25 03:00 Test 03/30/25 03:00 Range/Units Serum Glucose 96 74-106 mg/dL Problem List DILATED/ ISCHEMIC CM EFrEF ACUTE DECOMPENSATION S/P DUAL CHAMBER AICD S/P PTCA STENT DIAGONAL HX OF AFIB ACUTE RESP ARREST HYPOCAPNIA COPD DIABETES HTN CKD STAGE II CT OF ABD ENTEROCOLITIS SBO CT HEAD NEGATIVE FOR ACUTE PATHOLOGY CXR POSITIVE INFILTRATE Assessment/Plan RESP STATUS IMPROVED BUT STILL APNEIC NEURO EXAM CONT SUPPORTIVE THERAPY DIURESIS DIG CORLANOR MONITOR k IV FLUID ABX NUTRITIONAL SUPPORT TESTOSTERONE X 1 PHARMACY YET TP PROVIDE TRT ORDERED INCREASE CALORIC INTAKE CORRECT HYPOKALEMIA LEUKOCYTOSIS IMPROVING MONITOR H?H CONSIDER EPOGEN WEAN OFF VENT RESP ACIDOSIS 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 Protein Adjustment: Recommend lower protein intake at ~1 g/kg ABW to support CKD Stage 3 status and reduce renal workload. 2. Enteral Nutrition (EN) If GI tract is accessible, initiate tube feeding (TF): Formula: Glucerna Rate: 40 mL/hr (continuous) Provides: Protein: ~58 g/day (98% of estimated needs) Energy: ~1152 kcal/day (118% of estimated needs) 3. Monitoring & Follow-Up Labs: Monitor renal panel, electrolytes, and relevant nutrition markers. Consults: Follow nephrology and GI recommendations. Reassess PRN: Adjust feeding regimen based on tolerance, labs, and clinical status. Expected Outcomes/Goals: Improing nutrition status, able to have PO feedings with gradual wt gain. Plan discussed with: Patient Critical Care Time(min): 35 WILEY SALINAS MD Mar 30, 2025 12:56
[2025-03-31] VITALS (32 sets, daily range): BP systolic 86–145; BP diastolic 29–74; PULSE 69–100; RESP 9–24; TEMP 97.7–99; O2SAT 87–100
[2025-03-31 03:24] LABS: Hematocrit 28.4 % (36.0-46.0); Hemoglobin 8.7 g/dL (12.2-16.2); Mean Corpuscular Hemoglobin 27.6 pg (28.0-32.0); Mean Corpuscular Volume 90.0 fL (80.0-100.0); Nucleated Red Blood Cells % 0.0 %
[2025-03-31 03:33] LABS: Alanine Aminotransferase 19 U/L (7-40); Albumin 3.4 g/dL (3.2-4.8); Alkaline Phosphatase 72 U/L (46-116); Anion Gap 11 (5-15); BUN/Creatinine Ratio 12.2 (10.0-20.0); Blood Urea Nitrogen 12 mg/dL (9-23); Calcium 8.8 mg/dL (8.7-10.4); Carbon Dioxide 27 mmol/L (20-31); Chloride 101 mmol/L (98-107); Glucose 121 mg/dL (74-106); Potassium 3.9 mmol/L (3.5-5.1); Sodium 139 mmol/L (136-145)
[2025-03-31 03:34] LABS: Bilirubin, Total 0.6 mg/dL (0.2-1.0); Total Protein 5.7 g/dL (5.7-8.2)
--- NOTE | 2025-03-31 04:38 | DVH ---
CHEST RADIOGRAPH Indication: s/p extubation Technique: Single frontal view of the chest was obtained COMPARISON: XY CHEST XRAY 1 VIEW on DOS: 03/30/25, XY CHEST XRAY 1 VIEW on DOS: 03/29/25, XY CHEST XRAY 1 VIEW on DOS: 03/28/25, XY CHEST PORTABLE on DOS: 03/27/25, XY CHEST PORTABLE on DOS: 03/26/25 FINDINGS: Cardiac silhouette is mildly enlarged. Grossly stable diffuse prominence of the pulmonary vasculature and interstitium. No large pleural effusions or significant pneumothorax. IMPRESSION: Stable cardiomegaly, pulmonary venous congestion, and edema.
[2025-03-31] MEDS: EMPAGLIFLOZIN 10 MG TAB PO SCH (10:49)
[2025-03-31] MEDS: LISINOPRIL 5 MG TAB PO SCH (10:51)
[2025-03-31] MEDS: FUROSEMIDE 20 MG TAB PO SCH (10:51)
[2025-03-31] MEDS: VANCOMYCIN 1GM/250ML KIT 250 ML IV SCH (10:53)
--- NOTE | 2025-03-31 15:35 | DVHPN2 ---
Progress Note - Dictate Date Seen: Mar 31, 2025 Has the PT tested + for MRSA If YES, has PT been informed?: No Medical Necessity Reason Pt with a Central, PICC or Fol: Yes The following are medically ne: Nova Catheter Reason for nova catheter: Strict I&O Subjective DILATED/ ISCHEMIC CM EFrEF ACUTE DECOMPENSATION S/P DUAL CHAMBER AICD S/P PTCA STENT DIAGONAL HX OF AFIB ACUTE RESP ARREST HYPOCAPNIA COPD DIABETES HTN CKD STAGE II CT OF ABD ENTEROCOLITIS SBO CT HEAD NEGATIVE FOR ACUTE PATHOLOGY CXR POSITIVE INFILTRATE vital signs Vital Sign Date Time Temp Pulse Resp B/P (MAP) Pulse Ox O2 Delivery O2 Flow Rate FiO2 03/31/25 14:00 14 90 Nasal Cannula* 3 32 03/31/25 12:26 100 03/31/25 12:00 98.7 104/45 (64) 98.7 Total Intake and Output 03/30/25 03/30/25 03/31/25 15:00 23:00 07:00 Intake Total 150 ml 230 ml 240 ml Output Total 700 ml 375 ml Balance 150 ml -470 ml -135 ml medications Current Medications Medications Dose Ordered Sig/Long Route Start Time Stop Time Status Last Admin Dose Admin Albuterol 2.5 mg Q6HPRN PRN NEB 03/26/25 04:15 Hydralazine HCl 10 mg Q6HP PRN IV 03/26/25 04:15 03/29/25 17:49 10 MG Amiodarone HCl 200 mg DAILY NG 03/26/25 10:00 03/31/25 10:50 200 MG Ondansetron HCl 4 mg Q4HP PRN IV 03/26/25 04:15 03/30/25 09:41 4 MG Enoxaparin Sodium 30 mg DAILY SC 03/26/25 10:00 03/31/25 10:50 30 MG Acetaminophen 650 mg Q6HP PRN PO 03/26/25 04:15 03/29/25 17:49 650 MG Nitroglycerin 0.4 mg Q5MINP PRN SL 03/26/25 04:15 Pantoprazole Sodium 40 mg DAILY IV 03/27/25 10:00 03/31/25 10:50 40 MG Ipratropium [place] 0.5 mg Q6HR NEB 03/26/25 18:00 03/31/25 12:20 0.5 MG Albuterol 2.5 mg Q6HR NEB 03/27/25 18:00 03/31/25 12:20 2.5 MG Clopidogrel Bisulfate 75 mg DAILY PO 03/28/25 10:00 03/31/25 10:50 75 MG Ivabradine 5 mg BID PO 03/27/25 22:00 03/30/25 22:05 5 MG Levofloxacin/ Dextrose 150 ml @ 150 mls/hr Q48H IV 03/30/25 10:00 03/30/25 09:30 150 MLS/HR Empaglifozin 10 mg DAILY PO 03/31/25 10:00 03/31/25 10:49 10 MG Lisinopril 10 mg DAILY PO 03/31/25 10:00 Furosemide 20 mg DAILY PO 03/31/25 10:00 03/31/25 10:51 20 MG laboratory and microbiology Laboratory Tests 03/31/25 02:36 Test 03/31/25 02:36 Range/Units Serum Glucose 121 H 74-106 mg/dL Problem List DILATED/ ISCHEMIC CM EFrEF ACUTE DECOMPENSATION S/P DUAL CHAMBER AICD S/P PTCA STENT DIAGONAL HX OF AFIB ACUTE RESP ARREST HYPOCAPNIA COPD DIABETES HTN CKD STAGE II CT OF ABD ENTEROCOLITIS SBO CT HEAD NEGATIVE FOR ACUTE PATHOLOGY CXR POSITIVE INFILTRATE Assessment/Plan RESP STATUS IMPROVED BUT STILL APNEIC NEURO EXAM CONT SUPPORTIVE THERAPY DIURESIS DIG CORLANOR MONITOR k IV FLUID ABX NUTRITIONAL SUPPORT TESTOSTERONE X 1 PHARMACY YET TP PROVIDE TRT ORDERED INCREASE CALORIC INTAKE CORRECT HYPOKALEMIA LEUKOCYTOSIS IMPROVING MONITOR H?H CONSIDER EPOGEN WEAN OFF VENT RESP ACIDOSIS 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 Protein Adjustment: Recommend lower protein intake at ~1 g/kg ABW to support CKD Stage 3 status and reduce renal workload. 2. Enteral Nutrition (EN) If GI tract is accessible, initiate tube feeding (TF): Formula: Glucerna Rate: 40 mL/hr (continuous) Provides: Protein: ~58 g/day (98% of estimated needs) Energy: ~1152 kcal/day (118% of estimated needs) 3. Monitoring & Follow-Up Labs: Monitor renal panel, electrolytes, and relevant nutrition markers. Consults: Follow nephrology and GI recommendations. Reassess PRN: Adjust feeding regimen based on tolerance, labs, and clinical status. Expected Outcomes/Goals: Improing nutrition status, able to have PO feedings with gradual wt gain. Plan discussed with: Patient Critical Care Time(min): 35 WILEY SALINAS MD Mar 31, 2025 15:35
--- NOTE | 2025-03-31 16:25 | DVHPNRES ---
Progress Note Date Seen: Mar 31, 2025 Resident Creating Document: MARIELY PORTER RESIDENT Has the PT tested + for MRSA If YES, has PT been informed?: No Medical Necessity Reason Pt with a Central, PICC or Fol: Yes The following are medically ne: Nova Catheter Reason for nova catheter: Strict I&O Subjective Review of Systems Patient is 54-year-old female for history of pulmonary artery hypertension, HFrEF, COPD, sick sinus syndrome status post pacemaker, atrial fibrillation, diabetes mellitus, hyperlipidemia, hypertension who brought to the hospital with a chief complaint of shortness of breath. Patient was recently in the hospital due to shortness of breath, difficulty breathing, low oxygen saturation at 33%. As per daughter she started suddenly had trouble breathing, and then called 911. Patient was intubated on 03/26/2025. Past surgical history: bilateral tubal ligation Family history: Reviewed, noncontributory Personal history: Smoker, no history of alcohol or drug use. CKD STAGE II 03/27/25: Patient seen in ICU. Patient is mechanically ventilated, intubated, but is able to open her eyes, follow commands, chest x-ray looks better today. She is on minimal vent settings. CPAP tomorrow. 03/28/25: Patient seen in ICU. Continued to be on mechanical ventilation. On sedation. Chest x-rays worsened compared to yesterday . More tracheal secretion. Washing per CPAP to [place] tomorrow. 03/29/2025: Patient seen in ICU, patient was extubated today. Is on 8 L oxygen and is tolerating well. Patient had hypokalemia which was replaced. Patient is off pressors, sedation 03/30/2025 patient seen in ICU, patient was extubated yesterday, is on 3 L oxygen, is tolerating well, patient had 2 episodes of vomiting yesterday, is feeling nauseous today swallow eval done PT evaluation to be done. Patient downgraded to tele, started on Jardiance, lisinopril 10, Lasix 20. Swallow eval. : Patient seen in ICU. Is on 3 L oxygen, tolerating well, patient had nausea the morning, PT evaluation done patient was able to sit in the chair. Patient downgraded to tele, is on pureed diet. Objective vital signs Vital Sign Date Time Temp Pulse Resp B/P (MAP) Pulse Ox O2 Delivery O2 Flow Rate FiO2 03/31/25 14:00 14 90 Nasal Cannula* 3 32 03/31/25 12:26 100 03/31/25 12:00 98.7 104/45 (64) 98.7 Total Intake and Output 03/30/25 03/30/25 03/31/25 15:00 23:00 07:00 Intake Total 150 ml 230 ml 240 ml Output Total 700 ml 375 ml Balance 150 ml -470 ml -135 ml medications Current Medications Medications Dose Ordered Sig/Long Route Start Time Stop Time Status Last Admin Dose Admin Albuterol 2.5 mg Q6HPRN PRN NEB 03/26/25 04:15 Hydralazine HCl 10 mg Q6HP PRN IV 03/26/25 04:15 03/29/25 17:49 10 MG Amiodarone HCl 200 mg DAILY NG 03/26/25 10:00 03/31/25 10:50 200 MG Ondansetron HCl 4 mg Q4HP PRN IV 03/26/25 04:15 03/30/25 09:41 4 MG Enoxaparin Sodium 30 mg DAILY SC 03/26/25 10:00 03/31/25 10:50 30 MG Acetaminophen 650 mg Q6HP PRN PO 03/26/25 04:15 03/29/25 17:49 650 MG Nitroglycerin 0.4 mg Q5MINP PRN SL 03/26/25 04:15 Pantoprazole Sodium 40 mg DAILY IV 03/27/25 10:00 03/31/25 10:50 40 MG Ipratropium [place] 0.5 mg Q6HR NEB 03/26/25 18:00 03/31/25 12:20 0.5 MG Albuterol 2.5 mg Q6HR NEB 03/27/25 18:00 03/31/25 12:20 2.5 MG Clopidogrel Bisulfate 75 mg DAILY PO 03/28/25 10:00 03/31/25 10:50 75 MG Ivabradine 5 mg BID PO 03/27/25 22:00 03/30/25 22:05 5 MG Levofloxacin/ Dextrose 150 ml @ 150 mls/hr Q48H IV 03/30/25 10:00 03/30/25 09:30 150 MLS/HR Empaglifozin 10 mg DAILY PO 03/31/25 10:00 03/31/25 10:49 10 MG Lisinopril 10 mg DAILY PO 03/31/25 10:00 Furosemide 20 mg DAILY PO 03/31/25 10:00 03/31/25 10:51 20 MG Examination General: extubated, alert and orient x4 HEENT: Normocephalic, atraumatic, moist mucous membranes Respiratory/pulmonary: Right-sided crackles, left-sided mild crackles, no wheezing. Cardiovascular: Normal heart sounds S1 and S2 with no associated murmurs Abdomen: Abdomen nondistended, there is no pain to palpation in any of the abdominal quadrants, no palpable masses. Extremities: There is no peripheral edema present at the lower extremities. Peripheral Pulses: 3+ Radial (R). 3+ Radial (L). 3+ Dorsalis pedis (R). 3+ Dorsalis pedis(L) Skin: sacral ulcer stage I present Neurological: Intact cranial nerves with no focal neurologic deficits laboratory and microbiology Laboratory Tests 03/31/25 02:36 Test 03/31/25 02:36 Range/Units Serum Glucose 121 H 74-106 mg/dL Microbiology Date/Time Source Procedure Growth Status 03/27/25 04:45 Nose MRSA Screen - Final Complete 03/26/25 00:12 Blood Blood Culture - Final NO GROWTH AFTER 5 DAYS OF INCUBATION. Complete Problem List/Assessment/Plan Problem List/Assessment/Plan Neurology Acute metabolic encephalopathy - Stable Cardiology Acute HFpEF Paroxysmal atrial fibrillation History of hypertension -continue to monitor electrolytes: Magnesium, potassium. -echocardiogram on 11/19/2024: Ejection fraction greater than 55%, left and right atrial enlargement -amiodarone 200 mg q.12. Patient used to take Eliquis before, given history of bleeding. Patient is only on Plavix. -Plavix 75 mg daily -strict I&O -BNP: 354 - Ivabrandine, lisnopril, jardiance, lasix given Respiratory Acute on chronic hypoxic and hypercapnic respiratory failure - ventilation: Respiratory rate 20, tidal volume 400, FiO2 35%, peep five. - IV antibiotic with vancomycin, levofloxacin - blood culture ordered - albuterol 2.5 mg nebulization q.6 Pneumonia Gram-positive versus negative -see the management of respiratory failure Pulmonary hypertension -avoid any antihypertensive medication Chronic obstructive pulmonary disease exacerbation -continue management of respiratory failure Renal/ Electrolytes JEANIE on CKD STAGE II Hypokalemia Infection Septic shock ?due to pneumonia Gram-positive versus negative -IV antibiotic with vancomycin, levofloxacin -maintain map greater than 65 -respiratory culture negative -urinalysis no signs of active UTI. Hematology Normocytic, normochromic anemia -hemoglobin 11.3 -continue to monitor. -iron panel Endocrine Diabetes mellitus type 2 HGB A1c 6% on 03/12/2025 Dyslipidemia -Insulin sliding scale Lines: 2 peripheral IV lines Nova catheter Intubated on 03/26/2025, Extubated on 03/29/25 PUD prophylaxis with Protonix DVT prophylaxis with Lovenox Diet : Purred advance care planning- full code- time spent 19 mins Plan discussed with Plan discussed with: Patient, Spouse My Orders My Orders Orders - MARIELY PORTER Procedure Category Date Status Time Empagliflozin PHA 03/31/25 In Process (Jardiance) 10:00 Lisinopril Tablet PHA 03/31/25 In Process (Zestril Tablet) 10:00 Furosemide Tablet PHA 03/31/25 In Process (Lasix Tablet) 10:00 Transfer Orders XFER 03/30/25 Transmitted 18:05 Chest Xray 1 View XY 03/31/25 Resulted 04:00 Mechanical Soft Diet DIET 03/31/25 Transmitted Lunch Dietary Evaluation Review Comments: 1. Protein Adjustment: Recommend lower protein intake at ~1 g/kg ABW to support CKD Stage 3 status and reduce renal workload. 2. Enteral Nutrition (EN) If GI tract is accessible, initiate tube feeding (TF): Formula: Glucerna Rate: 40 mL/hr (continuous) Provides: Protein: ~58 g/day (98% of estimated needs) Energy: ~1152 kcal/day (118% of estimated needs) 3. Monitoring & Follow-Up Labs: Monitor renal panel, electrolytes, and relevant nutrition markers. Consults: Follow nephrology and GI recommendations. Reassess PRN: Adjust feeding regimen based on tolerance, labs, and clinical status. Expected Outcomes/Goals: Improing nutrition status, able to have PO feedings with gradual wt gain. Date of Service: Mar 31, 2025 Billing Provider: LINDA FLORES MD Common Visit Codes: [id number] INP/OBS CARE(HIGH) Secondary Visit Codes: [id number] CARE PLAN 30 MINUTES MARIELY PORTER Mar 31, 2025 16:25 LINDA FLORES MD Apr 01, 2025 15:25
[2025-04-01] VITALS (16 sets, daily range): BP systolic 108–128; BP diastolic 57–66; PULSE 70–103; RESP 16–19; TEMP 97.7–98.5; O2SAT 92–100
[2025-04-01] MEDS: ALBUTEROL SULF 2.5 MG/0.5ML(0.5%) NEB SOLN ONE (06:38)
[2025-04-01] MEDS: IPRATROPIUM BROM 0.5 MG/2.5ML INH SOL ONE (06:38)
[2025-04-01 07:13] LABS: Hematocrit 26.1 % (36.0-46.0); Hemoglobin 8.5 g/dL (12.2-16.2); Mean Corpuscular Hemoglobin 27.2 pg (28.0-32.0); Mean Corpuscular Volume 83.1 fL (80.0-100.0); Nucleated Red Blood Cells % 0.0 %
[2025-04-01 07:33] LABS: Alanine Aminotransferase 17 U/L (7-40); Alkaline Phosphatase 65 U/L (46-116); Anion Gap 10 (5-15); BUN/Creatinine Ratio 12.6 (10.0-20.0); Blood Urea Nitrogen 11 mg/dL (9-23); Chloride 102 mmol/L (98-107); Glucose 98 mg/dL (74-106); Potassium 3.7 mmol/L (3.5-5.1); Sodium 143 mmol/L (136-145)
[2025-04-01 07:34] LABS: Albumin 3.1 g/dL (3.2-4.8); Bilirubin, Total 0.5 mg/dL (0.2-1.0); Calcium 8.6 mg/dL (8.7-10.4); Carbon Dioxide 31 mmol/L (20-31); Total Protein 5.3 g/dL (5.7-8.2)
[2025-04-01] MEDS: ENOXAPARIN SOD 30 MG/0.3 ML SYRINGE SC SCH (09:52)
[2025-04-01] MEDS: AMIODARONE HCL 200 MG TAB PO SCH (11:23)
--- NOTE | 2025-04-01 15:42 | DVHPN2 ---
Progress Note - Dictate Date Seen: Apr 01, 2025 Has the PT tested + for MRSA If YES, has PT been informed?: No Medical Necessity Reason Pt with a Central, PICC or Fol: Yes The following are medically ne: Nova Catheter Reason for nova catheter: Strict I&O Subjective DILATED/ ISCHEMIC CM EFrEF ACUTE DECOMPENSATION S/P DUAL CHAMBER AICD S/P PTCA STENT DIAGONAL HX OF AFIB ACUTE RESP ARREST HYPOCAPNIA COPD DIABETES HTN CKD STAGE II CT OF ABD ENTEROCOLITIS SBO CT HEAD NEGATIVE FOR ACUTE PATHOLOGY CXR POSITIVE INFILTRATE vital signs Vital Sign Date Time Temp Pulse Resp B/P (MAP) Pulse Ox O2 Delivery O2 Flow Rate FiO2 04/01/25 13:00 98.5 95 16 108/61 (77) 96 98.5 04/01/25 11:20 Nasal Cannula 2.0 04/01/25 11:20 28 Total Intake and Output 03/31/25 03/31/25 04/01/25 15:00 23:00 07:00 Intake Total 250 ml 718 ml 100 ml Output Total 1225 ml 500 ml Balance 250 ml -507 ml -400 ml medications Current Medications Medications Dose Ordered Sig/Long Route Start Time Stop Time Status Last Admin Dose Admin Albuterol 2.5 mg Q6HPRN PRN NEB 03/26/25 04:15 Hydralazine HCl 10 mg Q6HP PRN IV 03/26/25 04:15 03/29/25 17:49 10 MG Ondansetron HCl 4 mg Q4HP PRN IV 03/26/25 04:15 03/30/25 09:41 4 MG Acetaminophen 650 mg Q6HP PRN PO 03/26/25 04:15 03/29/25 17:49 650 MG Nitroglycerin 0.4 mg Q5MINP PRN SL 03/26/25 04:15 Pantoprazole Sodium 40 mg DAILY IV 03/27/25 10:00 04/01/25 09:51 40 MG Ipratropium [place] 0.5 mg Q6HR NEB 03/26/25 18:00 04/01/25 11:20 0.5 MG Albuterol 2.5 mg Q6HR NEB 03/27/25 18:00 04/01/25 11:20 2.5 MG Clopidogrel Bisulfate 75 mg DAILY PO 03/28/25 10:00 04/01/25 09:53 75 MG Ivabradine 5 mg BID PO 03/27/25 22:00 04/01/25 11:22 5 MG Levofloxacin/ Dextrose 150 ml @ 150 mls/hr Q48H IV 03/30/25 10:00 04/01/25 09:53 150 MLS/HR Empaglifozin 10 mg DAILY PO 03/31/25 10:00 04/01/25 09:53 10 MG Lisinopril 10 mg DAILY PO 03/31/25 10:00 04/01/25 09:52 10 MG Furosemide 20 mg DAILY PO 03/31/25 10:00 04/01/25 09:53 20 MG Enoxaparin Sodium 40 mg DAILY SC 04/01/25 10:00 04/01/25 09:52 40 MG Amiodarone HCl 200 mg DAILY PO 04/01/25 10:45 04/01/25 11:23 200 MG laboratory and microbiology Laboratory Tests 04/01/25 06:25 Test 04/01/25 06:25 Range/Units Serum Glucose 98 74-106 mg/dL Problem List DILATED/ ISCHEMIC CM EFrEF ACUTE DECOMPENSATION S/P DUAL CHAMBER AICD S/P PTCA STENT DIAGONAL HX OF AFIB ACUTE RESP ARREST HYPOCAPNIA COPD DIABETES HTN CKD STAGE II CT OF ABD ENTEROCOLITIS SBO CT HEAD NEGATIVE FOR ACUTE PATHOLOGY CXR POSITIVE INFILTRATE Assessment/Plan RESP STATUS IMPROVED BUT STILL APNEIC NEURO EXAM CONT SUPPORTIVE THERAPY DIURESIS DIG CORLANOR MONITOR k IV FLUID ABX NUTRITIONAL SUPPORT TESTOSTERONE X 1 PHARMACY YET TP PROVIDE TRT ORDERED INCREASE CALORIC INTAKE CORRECT HYPOKALEMIA LEUKOCYTOSIS IMPROVING MONITOR H?H CONSIDER EPOGEN WEAN OFF VENT RESP ACIDOSIS PT IS A CO2 RETAINER PT EXTUBATE NOW BACK TO BASELINE Dietary Evaluation Review Comments: 1. Protein Adjustment: Recommend lower protein intake at ~1 g/kg ABW to support CKD Stage 3 status and reduce renal workload. 2. Enteral Nutrition (EN) If GI tract is accessible, initiate tube feeding (TF): Formula: Glucerna Rate: 40 mL/hr (continuous) Provides: Protein: ~58 g/day (98% of estimated needs) Energy: ~1152 kcal/day (118% of estimated needs) 3. Monitoring & Follow-Up Labs: Monitor renal panel, electrolytes, and relevant nutrition markers. Consults: Follow nephrology and GI recommendations. Reassess PRN: Adjust feeding regimen based on tolerance, labs, and clinical status. Expected Outcomes/Goals: Improing nutrition status, able to have PO feedings with gradual wt gain. Plan discussed with: Patient WILEY SALINAS MD Apr 01, 2025 15:42
--- NOTE | 2025-04-01 15:56 | DVHPNRES ---
Progress Note Date Seen: Apr 01, 2025 Resident Creating Document: MARIELY PORTER RESIDENT Has the PT tested + for MRSA If YES, has PT been informed?: No Medical Necessity Reason Pt with a Central, PICC or Fol: Yes The following are medically ne: Nova Catheter Reason for nova catheter: Strict I&O Subjective Review of Systems Patient is 54-year-old female for history of pulmonary artery hypertension, HFrEF, COPD, sick sinus syndrome status post pacemaker, atrial fibrillation, diabetes mellitus, hyperlipidemia, hypertension who brought to the hospital with a chief complaint of shortness of breath. Patient was recently in the hospital due to shortness of breath, difficulty breathing, low oxygen saturation at 33%. As per daughter she started suddenly had trouble breathing, and then called 911. Patient was intubated on 03/26/2025. Past surgical history: bilateral tubal ligation Family history: Reviewed, noncontributory Personal history: Smoker, no history of alcohol or drug use. CKD STAGE II 03/27/25: Patient seen in ICU. Patient is mechanically ventilated, intubated, but is able to open her eyes, follow commands, chest x-ray looks better today. She is on minimal vent settings. CPAP tomorrow. 03/28/25: Patient seen in ICU. Continued to be on mechanical ventilation. On sedation. Chest x-rays worsened compared to yesterday . More tracheal secretion. Washing per CPAP to [place] tomorrow. 03/29/2025: Patient seen in ICU, patient was extubated today. Is on 8 L oxygen and is tolerating well. Patient had hypokalemia which was replaced. Patient is off pressors, sedation 03/30/2025 patient seen in ICU, patient was extubated yesterday, is on 3 L oxygen, is tolerating well, patient had 2 episodes of vomiting yesterday, is feeling nauseous today swallow eval done PT evaluation to be done. Patient downgraded to tele, started on Jardiance, lisinopril 10, Lasix 20. Swallow eval. 03/31/25: Patient seen in ICU. Is on 3 L oxygen, tolerating well, patient had nausea the morning, PT evaluation done patient was able to sit in the chair. Patient downgraded to tele, is on pureed diet. 04/01/2025: Patient seen at bedside. Patient downgraded to tele, patient is on 2 L oxygen, tolerating well, patient denied any nausea, vomiting, diarrhea, PT evaluation to be done patient was sitting on a chair, tolerating diet and had a bowel movement 2 days ago. Levofloxacin changed to p.o. Objective vital signs Vital Sign Date Time Temp Pulse Resp B/P (MAP) Pulse Ox O2 Delivery O2 Flow Rate FiO2 04/01/25 13:00 98.5 95 16 108/61 (77) 96 98.5 04/01/25 11:20 Nasal Cannula 2.0 04/01/25 11:20 28 Total Intake and Output 03/31/25 03/31/25 04/01/25 14:59 22:59 06:59 Intake Total 250 ml 718 ml 100 ml Output Total 1225 ml 500 ml Balance 250 ml -507 ml -400 ml medications Current Medications Medications Dose Ordered Sig/Long Route Start Time Stop Time Status Last Admin Dose Admin Albuterol 2.5 mg Q6HPRN PRN NEB 03/26/25 04:15 Hydralazine HCl 10 mg Q6HP PRN IV 03/26/25 04:15 03/29/25 17:49 10 MG Ondansetron HCl 4 mg Q4HP PRN IV 03/26/25 04:15 03/30/25 09:41 4 MG Acetaminophen 650 mg Q6HP PRN PO 03/26/25 04:15 03/29/25 17:49 650 MG Nitroglycerin 0.4 mg Q5MINP PRN SL 03/26/25 04:15 Ipratropium [place] 0.5 mg Q6HR NEB 03/26/25 18:00 04/01/25 11:20 0.5 MG Albuterol 2.5 mg Q6HR NEB 03/27/25 18:00 04/01/25 11:20 2.5 MG Clopidogrel Bisulfate 75 mg DAILY PO 03/28/25 10:00 04/01/25 09:53 75 MG Ivabradine 5 mg BID PO 03/27/25 22:00 04/01/25 11:22 5 MG Empaglifozin 10 mg DAILY PO 03/31/25 10:00 04/01/25 09:53 10 MG Lisinopril 10 mg DAILY PO 03/31/25 10:00 04/01/25 09:52 10 MG Furosemide 20 mg DAILY PO 03/31/25 10:00 04/01/25 09:53 20 MG Enoxaparin Sodium 40 mg DAILY SC 04/01/25 10:00 04/01/25 09:52 40 MG Amiodarone HCl 200 mg DAILY PO 04/01/25 10:45 04/01/25 11:23 200 MG Levofloxacin 750 mg DAILY PO 04/02/25 10:00 UNV Pantoprazole Sodium 40 mg DAILY@0600 PO 04/02/25 06:00 UNV Examination General: extubated, alert and orient x4 HEENT: Normocephalic, atraumatic, moist mucous membranes Respiratory/pulmonary: Normal breath sounds, no wheezing. Cardiovascular: Normal heart sounds S1 and S2 with no associated murmurs Abdomen: Abdomen nondistended, there is no pain to palpation in any of the abdominal quadrants, no palpable masses. Extremities: There is no peripheral edema present at the lower extremities. Peripheral Pulses: 3+ Radial (R). 3+ Radial (L). 3+ Dorsalis pedis (R). 3+ Dorsalis pedis(L) Skin: sacral ulcer stage I present Neurological: Intact cranial nerves with no focal neurologic deficits laboratory and microbiology Laboratory Tests 04/01/25 06:25 Test 04/01/25 06:25 Range/Units Serum Glucose 98 74-106 mg/dL Microbiology Date/Time Source Procedure Growth Status 03/27/25 04:45 Nose MRSA Screen - Final Complete 03/26/25 00:12 Blood Blood Culture - Final NO GROWTH AFTER 5 DAYS OF INCUBATION. Complete Problem List/Assessment/Plan Problem List/Assessment/Plan Neurology Acute metabolic encephalopathy - Stable Cardiology Acute HFpEF Paroxysmal atrial fibrillation History of hypertension -continue to monitor electrolytes: Magnesium, potassium. -echocardiogram on 11/19/2024: Ejection fraction greater than 55%, left and right atrial enlargement -amiodarone 200 mg daily. Patient used to take Eliquis before, given history of bleeding. Patient is only on Plavix. -Plavix 75 mg daily -strict I&O -BNP: 354 - Ivabrandine, lisnopril, jardiance, lasix given Respiratory Acute on chronic hypoxic and hypercapnic respiratory failure - p.o levofloxacin -blood culture negative - albuterol 2.5 mg nebulization q.6 Pneumonia Gram-positive versus negative -see the management of respiratory failure Pulmonary hypertension -avoid any antihypertensive medication Chronic obstructive pulmonary disease exacerbation -continue management of respiratory failure Renal/ Electrolytes JEANIE on CKD STAGE II Hypokalemia Infection Septic shock ?due to pneumonia Gram-positive versus negative -p.o. levofloxacin -maintain map greater than 65 -respiratory culture negative -urinalysis no signs of active UTI. Hematology Normocytic, normochromic anemia -hemoglobin 11.3 -continue to monitor. -iron panel Endocrine Diabetes mellitus type 2 HGB A1c 6% on 03/12/2025 Dyslipidemia -Insulin sliding scale Lines: 2 peripheral IV lines Nova catheter Intubated on 03/26/2025, Extubated on 03/29/25 PUD prophylaxis with Protonix DVT prophylaxis with Lovenox Diet : Soft diet advance care planning- full code- time spent 19 mins Plan discussed with Plan discussed with: Patient, Spouse My Orders My Orders Orders - MARIELY PROTER RESIDENT Procedure Category Date Status Time Enoxaparin Sodium PHA 04/01/25 In Process (Lovenox) 10:00 Amiodarone Tablet PHA 04/01/25 In Process (Cordarone Tablet) 10:45 Levofloxacin Tablet PHA 04/02/25 Logged (Levaquin Tablet) 10:00 Pantoprazole Tablet PHA 04/02/25 Logged (Protonix Tablet) 06:00 * [employer] CONS 04/01/25 Transmitted Consult Complete Blood Count LAB 04/02/25 Verified 04:00 Comprehensive LAB 04/02/25 Verified Metabolic Panel 04:00 Dietary Evaluation Review Comments: 1. Protein Adjustment: Recommend lower protein intake at ~1 g/kg ABW to support CKD Stage 3 status and reduce renal workload. 2. Enteral Nutrition (EN) If GI tract is accessible, initiate tube feeding (TF): Formula: Glucerna Rate: 40 mL/hr (continuous) Provides: Protein: ~58 g/day (98% of estimated needs) Energy: ~1152 kcal/day (118% of estimated needs) 3. Monitoring & Follow-Up Labs: Monitor renal panel, electrolytes, and relevant nutrition markers. Consults: Follow nephrology and GI recommendations. Reassess PRN: Adjust feeding regimen based on tolerance, labs, and clinical status. Expected Outcomes/Goals: Improing nutrition status, able to have PO feedings with gradual wt gain. Date of Service: Apr 01, 2025 Billing Provider: LINDA FLORES MD Common Visit Codes: [id number] INP/OBS CARE(HIGH) Secondary Visit Codes: [id number] CARE PLAN 30 MINUTES MARIELY PORTER RESIDENT Apr 01, 2025 15:56 LINDA FLORES MD Apr 02, 2025 12:05
[2025-04-02] VITALS (18 sets, daily range): BP systolic 106–132; BP diastolic 57–80; PULSE 68–96; RESP 14–18; TEMP 97.5–98.3; O2SAT 95–100
[2025-04-02 05:50] LABS: Hematocrit 27.2 % (36.0-46.0); Hemoglobin 9.0 g/dL (12.2-16.2); Mean Corpuscular Hemoglobin 27.1 pg (28.0-32.0); Mean Corpuscular Volume 82.3 fL (80.0-100.0); Nucleated Red Blood Cells % 0.0 %
[2025-04-02 06:09] LABS: Alanine Aminotransferase 19 U/L (7-40); Alkaline Phosphatase 70 U/L (46-116); Anion Gap 11 (5-15); BUN/Creatinine Ratio 15.2 (10.0-20.0); Blood Urea Nitrogen 14 mg/dL (9-23); Calcium 8.9 mg/dL (8.7-10.4); Carbon Dioxide 30 mmol/L (20-31); Chloride 101 mmol/L (98-107); Potassium 3.6 mmol/L (3.5-5.1); Sodium 142 mmol/L (136-145)
[2025-04-02 06:10] LABS: Albumin 3.3 g/dL (3.2-4.8); Bilirubin, Total 0.5 mg/dL (0.2-1.0)
[2025-04-02 06:13] LABS: Glucose 113 mg/dL (74-106); Total Protein 5.6 g/dL (5.7-8.2)
[2025-04-02] MEDS: PANTOPRAZOLE 40 MG TAB PO SCH (06:15)
--- NOTE | 2025-04-02 08:09 | DVHPN2 ---
Progress Note - Dictate Date Seen: Apr 02, 2025 Has the PT tested + for MRSA If YES, has PT been informed?: No Medical Necessity Reason Pt with a Central, PICC or Fol: Yes The following are medically ne: Nova Catheter Reason for nova catheter: Strict I&O Subjective DILATED/ ISCHEMIC CM EFrEF ACUTE DECOMPENSATION S/P DUAL CHAMBER AICD S/P PTCA STENT DIAGONAL HX OF AFIB ACUTE RESP ARREST HYPOCAPNIA COPD DIABETES HTN CKD STAGE II CT OF ABD ENTEROCOLITIS SBO CT HEAD NEGATIVE FOR ACUTE PATHOLOGY CXR POSITIVE INFILTRATE vital signs Vital Sign Date Time Temp Pulse Resp B/P (MAP) Pulse Ox O2 Delivery O2 Flow Rate FiO2 04/02/25 06:56 73 14 99 04/02/25 06:53 Nasal Cannula* 3 32 04/02/25 05:00 98.2 118/80 (93) 98.2 Total Intake and Output 04/01/25 04/01/25 04/02/25 15:00 23:00 07:00 Intake Total 1230 ml 1080 ml 450 ml Output Total 1000 ml 1000 ml Balance 1230 ml 80 ml -550 ml medications Current Medications Medications Dose Ordered Sig/Long Route Start Time Stop Time Status Last Admin Dose Admin Albuterol 2.5 mg Q6HPRN PRN NEB 03/26/25 04:15 Hydralazine HCl 10 mg Q6HP PRN IV 03/26/25 04:15 03/29/25 17:49 10 MG Ondansetron HCl 4 mg Q4HP PRN IV 03/26/25 04:15 03/30/25 09:41 4 MG Acetaminophen 650 mg Q6HP PRN PO 03/26/25 04:15 03/29/25 17:49 650 MG Nitroglycerin 0.4 mg Q5MINP PRN SL 03/26/25 04:15 Ipratropium [place] 0.5 mg Q6HR NEB 03/26/25 18:00 04/02/25 06:50 0.5 MG Albuterol 2.5 mg Q6HR NEB 03/27/25 18:00 04/02/25 06:50 2.5 MG Clopidogrel Bisulfate 75 mg DAILY PO 03/28/25 10:00 04/01/25 09:53 75 MG Ivabradine 5 mg BID PO 03/27/25 22:00 04/01/25 22:33 5 MG Empaglifozin 10 mg DAILY PO 03/31/25 10:00 04/01/25 09:53 10 MG Lisinopril 10 mg DAILY PO 03/31/25 10:00 04/01/25 09:52 10 MG Furosemide 20 mg DAILY PO 03/31/25 10:00 04/01/25 09:53 20 MG Enoxaparin Sodium 40 mg DAILY SC 04/01/25 10:00 04/01/25 09:52 40 MG Amiodarone HCl 200 mg DAILY PO 04/01/25 10:45 04/01/25 11:23 200 MG Levofloxacin 750 mg Q48H PO 04/02/25 10:00 Pantoprazole Sodium 40 mg DAILY@0600 PO 04/02/25 06:00 04/02/25 06:15 40 MG laboratory and microbiology Laboratory Tests 04/02/25 05:09 Test 04/02/25 05:09 Range/Units Serum Glucose 113 H 74-106 mg/dL Problem List DILATED/ ISCHEMIC CM EFrEF ACUTE DECOMPENSATION S/P DUAL CHAMBER AICD S/P PTCA STENT DIAGONAL HX OF AFIB ACUTE RESP ARREST HYPOCAPNIA COPD DIABETES HTN CKD STAGE II CT OF ABD ENTEROCOLITIS SBO CT HEAD NEGATIVE FOR ACUTE PATHOLOGY CXR POSITIVE INFILTRATE Assessment/Plan RESP STATUS IMPROVED BUT STILL APNEIC NEURO EXAM CONT SUPPORTIVE THERAPY DIURESIS DIG CORLANOR MONITOR k IV FLUID ABX NUTRITIONAL SUPPORT TESTOSTERONE X 1 PHARMACY YET TP PROVIDE TRT ORDERED INCREASE CALORIC INTAKE CORRECT HYPOKALEMIA LEUKOCYTOSIS IMPROVING MONITOR H?H CONSIDER EPOGEN WEAN OFF VENT RESP ACIDOSIS PT IS A CO2 RETAINER PT EXTUBATE NOW BACK TO BASELINE S/P PTCA STENT PF DIAGONAL 7 MONTHS DC PLAVIX IRON INFUSION EPOGEN Dietary Evaluation Review Comments: 1. Protein Adjustment: Recommend lower protein intake at ~1 g/kg ABW to support CKD Stage 3 status and reduce renal workload. 2. Enteral Nutrition (EN) If GI tract is accessible, initiate tube feeding (TF): Formula: Glucerna Rate: 40 mL/hr (continuous) Provides: Protein: ~58 g/day (98% of estimated needs) Energy: ~1152 kcal/day (118% of estimated needs) 3. Monitoring & Follow-Up Labs: Monitor renal panel, electrolytes, and relevant nutrition markers. Consults: Follow nephrology and GI recommendations. Reassess PRN: Adjust feeding regimen based on tolerance, labs, and clinical status. Expected Outcomes/Goals: Improing nutrition status, able to have PO feedings with gradual wt gain. Plan discussed with: Patient WILEY SALINAS MD Apr 02, 2025 08:08
[2025-04-02] MEDS ORDERED: PATIENTS OWN MEDICATION (EPOGEN 10,000 UNITS) SL ONE (08:15)
[2025-04-02] MEDS: levoFLOXacin 250 MG TAB PO SCH (09:17)
[2025-04-02] MEDS ORDERED: AMIODARONE HCL 200 MG TAB PO SCH (10:00)
[2025-04-02] MEDS: IRON SUCROSE COMPLEX 110 ML IV SCH (11:29)
[2025-04-02] MEDS: METOPROLOL TARTRATE 25 MG TAB PO ONE (13:34)
--- NOTE | 2025-04-02 16:01 | DVHPNRES ---
Progress Note Date Seen: Apr 02, 2025 Resident Creating Document: MARIELY PORTER RESIDENT Has the PT tested + for MRSA If YES, has PT been informed?: No Medical Necessity Reason Pt with a Central, PICC or Fol: Yes The following are medically ne: Nova Catheter Reason for nova catheter: Strict I&O Subjective Review of Systems Patient is 54-year-old female for history of pulmonary artery hypertension, HFrEF, COPD, sick sinus syndrome status post pacemaker, atrial fibrillation, diabetes mellitus, hyperlipidemia, hypertension who brought to the hospital with a chief complaint of shortness of breath. Patient was recently in the hospital due to shortness of breath, difficulty breathing, low oxygen saturation at 33%. As per daughter she started suddenly had trouble breathing, and then called 911. Patient was intubated on 03/26/2025. Past surgical history: bilateral tubal ligation Family history: Reviewed, noncontributory Personal history: Smoker, no history of alcohol or drug use. CKD STAGE II 03/27/25: Patient seen in ICU. Patient is mechanically ventilated, intubated, but is able to open her eyes, follow commands, chest x-ray looks better today. She is on minimal vent settings. CPAP tomorrow. 03/28/25: Patient seen in ICU. Continued to be on mechanical ventilation. On sedation. Chest x-rays worsened compared to yesterday . More tracheal secretion. Washing per CPAP to [place] tomorrow. 03/29/2025: Patient seen in ICU, patient was extubated today. Is on 8 L oxygen and is tolerating well. Patient had hypokalemia which was replaced. Patient is off pressors, sedation 03/30/2025 patient seen in ICU, patient was extubated yesterday, is on 3 L oxygen, is tolerating well, patient had 2 episodes of vomiting yesterday, is feeling nauseous today swallow eval done PT evaluation to be done. Patient downgraded to tele, started on Jardiance, lisinopril 10, Lasix 20. Swallow eval. 03/31/25: Patient seen in ICU. Is on 3 L oxygen, tolerating well, patient had nausea the morning, PT evaluation done patient was able to sit in the chair. Patient downgraded to tele, is on pureed diet. 04/01/2025: Patient seen at bedside. Patient downgraded to tele, patient is on 2 L oxygen, tolerating well, patient denied any nausea, vomiting, diarrhea, PT evaluation to be done patient was sitting on a chair, tolerating diet and had a bowel movement 2 days ago. Levofloxacin changed to p.o. : Patient seen at bedside. Patient has no new complaints is on 2 L oxygen, tolerating well, patient walked to the door and back. Patient was accepted for home health. Possible discharge tomorrow. Added metoprolol 12.5 mg Objective vital signs Vital Sign Date Time Temp Pulse Resp B/P (MAP) Pulse Ox O2 Delivery O2 Flow Rate FiO2 04/02/25 13:34 86 106/61 04/02/25 13:00 97.9 18 96 97.9 04/02/25 11:08 Nasal Cannula 3.0 04/02/25 11:08 32 Total Intake and Output 04/01/25 04/01/25 04/02/25 14:59 22:59 06:59 Intake Total 1230 ml 1080 ml 450 ml Output Total 1000 ml 1000 ml Balance 1230 ml 80 ml -550 ml medications Current Medications Medications Dose Ordered Sig/Long Route Start Time Stop Time Status Last Admin Dose Admin Albuterol 2.5 mg Q6HPRN PRN NEB 03/26/25 04:15 Hydralazine HCl 10 mg Q6HP PRN IV 03/26/25 04:15 03/29/25 17:49 10 MG Ondansetron HCl 4 mg Q4HP PRN IV 03/26/25 04:15 03/30/25 09:41 4 MG Acetaminophen 650 mg Q6HP PRN PO 03/26/25 04:15 03/29/25 17:49 650 MG Nitroglycerin 0.4 mg Q5MINP PRN SL 03/26/25 04:15 Ipratropium [place] 0.5 mg Q6HR NEB 03/26/25 18:00 04/02/25 11:08 0.5 MG Albuterol 2.5 mg Q6HR NEB 03/27/25 18:00 04/02/25 11:08 2.5 MG Ivabradine 5 mg BID PO 03/27/25 22:00 04/02/25 09:17 5 MG Empaglifozin 10 mg DAILY PO 03/31/25 10:00 04/02/25 09:18 10 MG Lisinopril 10 mg DAILY PO 03/31/25 10:00 04/02/25 09:18 10 MG Furosemide 20 mg DAILY PO 03/31/25 10:00 04/02/25 09:18 20 MG Amiodarone HCl 200 mg DAILY PO 04/01/25 10:45 04/02/25 09:18 200 MG Levofloxacin 750 mg Q48H PO 04/02/25 10:00 04/02/25 09:17 750 MG Pantoprazole Sodium 40 mg DAILY@0600 PO 04/02/25 06:00 04/02/25 06:15 40 MG Iron Sucrose 110 ml @ 110 mls/hr DAILY@1200 IV 04/02/25 12:00 04/06/25 12:59 04/02/25 11:29 110 MLS/HR Metoprolol Tartrate 12.5 mg BID PO 04/02/25 22:00 Examination General: extubated, alert and orient x4 HEENT: Normocephalic, atraumatic, moist mucous membranes Respiratory/pulmonary: Normal breath sounds, no wheezing. Cardiovascular: Normal heart sounds S1 and S2 with no associated murmurs Abdomen: Abdomen nondistended, there is no pain to palpation in any of the abdominal quadrants, no palpable masses. Extremities: There is no peripheral edema present at the lower extremities. Peripheral Pulses: 3+ Radial (R). 3+ Radial (L). 3+ Dorsalis pedis (R). 3+ Dorsalis pedis(L) Skin: sacral ulcer stage I present Neurological: Intact cranial nerves with no focal neurologic deficits laboratory and microbiology Laboratory Tests 04/02/25 05:09 Test 04/02/25 05:09 Range/Units Serum Glucose 113 H 74-106 mg/dL Microbiology Date/Time Source Procedure Growth Status 03/27/25 04:45 Nose MRSA Screen - Final Complete 03/26/25 00:12 Blood Blood Culture - Final NO GROWTH AFTER 5 DAYS OF INCUBATION. Complete Problem List/Assessment/Plan Problem List/Assessment/Plan Neurology Acute metabolic encephalopathy - Stable Cardiology Acute HFpEF Paroxysmal atrial fibrillation History of hypertension -continue to monitor electrolytes: Magnesium, potassium. -echocardiogram on 11/19/2024: Ejection fraction greater than 55%, left and right atrial enlargement -amiodarone 200 mg daily. Patient used to take Eliquis before, given history of bleeding. Patient is only on Plavix. -Plavix 75 mg daily -strict I&O -BNP: 354 - Ivabrandine, lisnopril, jardiance, lasix given Respiratory Acute on chronic hypoxic and hypercapnic respiratory failure - p.o levofloxacin -blood culture negative - albuterol 2.5 mg nebulization q.6 Pneumonia Gram-positive versus negative -see the management of respiratory failure Pulmonary hypertension -avoid any antihypertensive medication Chronic obstructive pulmonary disease exacerbation -continue management of respiratory failure Renal/ Electrolytes JEANIE on CKD STAGE II Hypokalemia Infection Septic shock ?due to pneumonia Gram-positive versus negative -p.o. levofloxacin -maintain map greater than 65 -respiratory culture negative -urinalysis no signs of active UTI. Hematology Normocytic, normochromic anemia -hemoglobin 11.3 -continue to monitor. -iron panel Endocrine Diabetes mellitus type 2 HGB A1c 6% on 03/12/2025 Dyslipidemia -Insulin sliding scale Lines: 2 peripheral IV lines Nova catheter Intubated on 03/26/2025, Extubated on 03/29/25 PUD prophylaxis with Protonix DVT prophylaxis with Lovenox Diet : Soft diet advance care planning- full code- time spent 19 mins Plan discussed with Plan discussed with: Patient, Spouse Dietary Evaluation Review Comments: 1. Protein Adjustment: Recommend lower protein intake at ~1 g/kg ABW to support CKD Stage 3 status and reduce renal workload. 2. Enteral Nutrition (EN) If GI tract is accessible, initiate tube feeding (TF): Formula: Glucerna Rate: 40 mL/hr (continuous) Provides: Protein: ~58 g/day (98% of estimated needs) Energy: ~1152 kcal/day (118% of estimated needs) 3. Monitoring & Follow-Up Labs: Monitor renal panel, electrolytes, and relevant nutrition markers. Consults: Follow nephrology and GI recommendations. Reassess PRN: Adjust feeding regimen based on tolerance, labs, and clinical status. Expected Outcomes/Goals: Improing nutrition status, able to have PO feedings with gradual wt gain. Date of Service: Apr 02, 2025 Billing Provider: LINDA FLORES MD Common Visit Codes: 56798-[id number] INP/OBS CARE(HIGH) Secondary Visit Codes: 72492-[id number] CARE PLAN 30 MINUTES MARIELY PORTER Apr 02, 2025 16:01 LINDA FLORES MD Apr 04, 2025 18:16
[2025-04-02] MEDS: METOPROLOL TARTRATE 25 MG TAB PO SCH (22:48)
[2025-04-03] VITALS (14 sets, daily range): BP systolic 112–153; BP diastolic 53–85; PULSE 69–82; RESP 12–22; TEMP 36.7; O2SAT 97–100
--- NOTE | 2025-04-03 05:51 | DVH ---
CHEST RADIOGRAPH Indication: rule out pul. congestion Technique: Single frontal view of the chest was obtained COMPARISON: XY CHEST XRAY 1 VIEW on DOS: 03/31/25, XY CHEST XRAY 1 VIEW on DOS: 03/30/25, XY CHEST XRAY 1 VIEW on DOS: 03/29/25, XY CHEST XRAY 1 VIEW on DOS: 03/28/25, XY CHEST PORTABLE on DOS: 03/27/25 FINDINGS: Cardiac silhouette is mildly enlarged. Stable diffuse prominence of the pulmonary vasculature. No dense focal airspace disease. Stable trace bilateral pleural effusions with mild bibasilar atelectasis IMPRESSION: Stable pulmonary venous congestion.
[2025-04-03 07:18] LABS: Mean Corpuscular Volume 83.2 fL (80.0-100.0); Nucleated Red Blood Cells % 0.0 %
[2025-04-03 07:19] LABS: Hematocrit 27.2 % (36.0-46.0); Hemoglobin 9.0 g/dL (12.2-16.2); Mean Corpuscular Hemoglobin 27.6 pg (28.0-32.0)
[2025-04-03 07:29] LABS: Alanine Aminotransferase 19 U/L (7-40); Albumin 3.4 g/dL (3.2-4.8); Alkaline Phosphatase 69 U/L (46-116); Anion Gap 10 (5-15); BUN/Creatinine Ratio 14.7 (10.0-20.0); Blood Urea Nitrogen 14 mg/dL (9-23); Calcium 8.8 mg/dL (8.7-10.4); Carbon Dioxide 30 mmol/L (20-31); Chloride 101 mmol/L (98-107); Glucose 101 mg/dL (74-106); Potassium 3.7 mmol/L (3.5-5.1); Sodium 141 mmol/L (136-145)
[2025-04-03 07:30] LABS: Bilirubin, Total 0.5 mg/dL (0.2-1.0)
[2025-04-03 07:31] LABS: Total Protein 5.7 g/dL (5.7-8.2)
--- NOTE | 2025-04-03 13:02 | DVHPN2 ---
Progress Note - Dictate Date Seen: Apr 03, 2025 Has the PT tested + for MRSA If YES, has PT been informed?: No Medical Necessity Reason Pt with a Central, PICC or Fol: Yes The following are medically ne: Nova Catheter Reason for nova catheter: Strict I&O Subjective DILATED/ ISCHEMIC CM EFrEF ACUTE DECOMPENSATION S/P DUAL CHAMBER AICD S/P PTCA STENT DIAGONAL HX OF AFIB ACUTE RESP ARREST HYPOCAPNIA COPD DIABETES HTN CKD STAGE II CT OF ABD ENTEROCOLITIS SBO CT HEAD NEGATIVE FOR ACUTE PATHOLOGY CXR POSITIVE INFILTRATE vital signs Vital Sign Date Time Temp Pulse Resp B/P (MAP) Pulse Ox O2 Delivery O2 Flow Rate FiO2 04/03/25 12:42 98.0 70 16 135/70 (91) 97 98.0 04/03/25 10:05 Room Air 5.0 04/03/25 10:05 40 Total Intake and Output 04/02/25 04/02/25 04/03/25 15:00 23:00 07:00 Intake Total 110 ml 200 ml 800 ml Balance 110 ml 200 ml 800 ml medications Current Medications Medications Dose Ordered Sig/Long Route Start Time Stop Time Status Last Admin Dose Admin Albuterol 2.5 mg Q6HPRN PRN NEB 03/26/25 04:15 Hydralazine HCl 10 mg Q6HP PRN IV 03/26/25 04:15 04/03/25 01:10 10 MG Ondansetron HCl 4 mg Q4HP PRN IV 03/26/25 04:15 03/30/25 09:41 4 MG Acetaminophen 650 mg Q6HP PRN PO 03/26/25 04:15 03/29/25 17:49 650 MG Nitroglycerin 0.4 mg Q5MINP PRN SL 03/26/25 04:15 Ipratropium [place] 0.5 mg Q6HR NEB 03/26/25 18:00 04/03/25 11:33 0.5 MG Albuterol 2.5 mg Q6HR NEB 03/27/25 18:00 04/03/25 11:34 2.5 MG Ivabradine 5 mg BID PO 03/27/25 22:00 04/03/25 10:44 5 MG Empaglifozin 10 mg DAILY PO 03/31/25 10:00 04/03/25 10:45 10 MG Lisinopril 10 mg DAILY PO 03/31/25 10:00 04/03/25 10:45 10 MG Furosemide 20 mg DAILY PO 03/31/25 10:00 04/03/25 10:44 20 MG Amiodarone HCl 200 mg DAILY PO 04/01/25 10:45 04/03/25 10:43 200 MG Levofloxacin 750 mg Q48H PO 04/02/25 10:00 04/02/25 09:17 750 MG Pantoprazole Sodium 40 mg DAILY@0600 PO 04/02/25 06:00 04/03/25 05:00 40 MG Iron Sucrose 110 ml @ 110 mls/hr DAILY@1200 IV 04/02/25 12:00 04/06/25 12:59 04/03/25 11:45 110 MLS/HR Metoprolol Tartrate 12.5 mg BID PO 04/02/25 22:00 04/03/25 10:45 12.5 MG laboratory and microbiology Laboratory Tests 04/03/25 05:58 Test 04/03/25 05:58 Range/Units Serum Glucose 101 74-106 mg/dL Problem List DILATED/ ISCHEMIC CM EFrEF ACUTE DECOMPENSATION S/P DUAL CHAMBER AICD S/P PTCA STENT DIAGONAL HX OF AFIB ACUTE RESP ARREST HYPOCAPNIA COPD DIABETES HTN CKD STAGE II CT OF ABD ENTEROCOLITIS SBO CT HEAD NEGATIVE FOR ACUTE PATHOLOGY CXR POSITIVE INFILTRATE Assessment/Plan RESP STATUS IMPROVED BUT STILL APNEIC NEURO EXAM CONT SUPPORTIVE THERAPY DIURESIS DIG CORLANOR MONITOR k IV FLUID ABX NUTRITIONAL SUPPORT TESTOSTERONE X 1 PHARMACY YET TP PROVIDE TRT ORDERED INCREASE CALORIC INTAKE CORRECT HYPOKALEMIA LEUKOCYTOSIS IMPROVING MONITOR H?H CONSIDER EPOGEN WEAN OFF VENT RESP ACIDOSIS PT IS A CO2 RETAINER PT EXTUBATE NOW BACK TO BASELINE S/P PTCA STENT PF DIAGONAL 7 MONTHS DC PLAVIX IRON INFUSION EPOGEN Dietary Evaluation Review Comments: 1. Protein Adjustment: Recommend lower protein intake at ~1 g/kg ABW to support CKD Stage 3 status and reduce renal workload. 2. Enteral Nutrition (EN) If GI tract is accessible, initiate tube feeding (TF): Formula: Glucerna Rate: 40 mL/hr (continuous) Provides: Protein: ~58 g/day (98% of estimated needs) Energy: ~1152 kcal/day (118% of estimated needs) 3. Monitoring & Follow-Up Labs: Monitor renal panel, electrolytes, and relevant nutrition markers. Consults: Follow nephrology and GI recommendations. Reassess PRN: Adjust feeding regimen based on tolerance, labs, and clinical status. Expected Outcomes/Goals: Improing nutrition status, able to have PO feedings with gradual wt gain. Plan discussed with: Patient WILEY SALINAS MD Apr 03, 2025 13:02
[2025-04-03] MEDS ORDERED: METO25TA5 PO (15:19)
[2025-04-03] MEDS ORDERED: LISI10TA34 PO (15:19)
[2025-04-03] MEDS ORDERED: FURO1TAB33 PO (15:19)
[2025-04-03] MEDS ORDERED: IVAB5TAB2 PO (15:19)
[2025-04-03] MEDS ORDERED: LEVO750T40 PO (15:19)
--- NOTE | 2025-04-03 16:54 | DVHDSRES ---
Discharge Summary Date of Admission Resident Creating Document: MARIELY PORTER Mar 26, 2025 at 04:05 Date of Discharge: Apr 03, 2025 Admitting Diagnosis Acute on chronic HFpEF Labs/Diagnostic Data: Laboratory Results Test 04/03/25 05:58 03/30/25 19:13 03/30/25 03:00 03/29/25 11:01 White Blood Count 10.0 10^3/uL (4.4-10.8) Red Blood Count 3.26 10^6/uL (4.0-5.20) Hemoglobin 9.0 g/dL (12.2-16.2) Hematocrit 27.2 % (36.0-46.0) Mean Corpuscular Volume 83.2 fL (80.0-100.0) Mean Corpuscular Hemoglobin 27.6 pg (28.0-32.0) Mean Corpuscular Hemoglobin Concent 33.1 g/dL (32.0-36.0) Red Cell Distribution Width 17.6 % (11.8-14.3) Platelet Count 345 10^3/uL (140-450) Mean Platelet Volume 7.3 fL (6.9-10.8) Neutrophils (%) (Auto) 79.2 % (37.0-80.0) Lymphocytes (%) (Auto) 5.6 % (10.0-50.0) Monocytes (%) (Auto) 13.2 % (0.0-12.0) Eosinophils (%) (Auto) 1.6 % (0.0-7.0) Basophils (%) (Auto) 0.4 % (0.0-2.0) Neutrophils # (Auto) 7.9 10 ^3/uL (1.6-8.6) Lymphocytes # (Auto) 0.6 10 ^3/uL (0.4-5.4) Monocytes # (Auto) 1.3 10 ^3/uL (0-1.3) Eosinophils # (Auto) 0.2 10 ^3/uL (0-0.8) Basophils # (Auto) 0 10 ^3/uL (0-0.2) Nucleated Red Blood Cells 0.0 % Sodium Level 141 mmol/L (136-145) Potassium Level 3.7 mmol/L (3.5-5.1) Chloride Level 101 mmol/L (98-107) Carbon Dioxide Level 30 mmol/L (20-31) Anion Gap 10 (5-15) Blood Urea Nitrogen 14 mg/dL (9-23) Creatinine 0.95 mg/dL (0.550-1.02) Glomerular Filtration Rate Calc 59 mL/min (>90) BUN/Creatinine Ratio 14.7 (10.0-20.0) Serum Glucose 101 mg/dL (74-106) Calcium Level 8.8 mg/dL (8.7-10.4) Total Bilirubin 0.5 mg/dL (0.2-1.0) Aspartate Amino Transferase (AST) 20 U/L (13-40) Alanine Aminotransferase (ALT) 19 U/L (7-40) Alkaline Phosphatase 69 U/L (46-116) Total Protein 5.7 g/dL (5.7-8.2) Albumin 3.4 g/dL (3.2-4.8) Vancomycin Level Trough 13.4 ug/mL (5-10) Magnesium Level 1.8 mg/dL (1.6-2.6) Blood Gas Specimen Type Arterial Blood Gas Sample Site Left radial Blood Gas Patient Temperature 37.0 Arterial Blood Date Drawn [id number] Arterial Blood pH 7.319 (7.350-7.450) Arterial Blood Partial Pressure CO2 51.2 mmHg (32.0-45.0) Arterial Blood Partial Pressure O2 84.0 mmHg (83.0-108.0) Arterial Blood HCO3 25.7 mmol/L (21.0-28.0) Arterial Blood Oxygen Saturation 95.0 % (94.0-98.0) Arterial Blood Base Excess -0.8 mmol/L (-2.0-3.0) Arterial Blood Oxyhemoglobin 93.5 % (94.0-98.0) Arterial Blood Carboxyhemoglobin 1.0 % (0.5-1.5) Arterial Blood Methemoglobin 0.6 % (0.0-1.5) Adryan Test Modified Blood Gas Total Hemoglobin 10.40 g/dL (12.0-16.0) Blood Gas Modality Vent - cpap Blood Gas Spontaneous Rate 13 FiO2 % 30.0 Blood Gas Spontaneous Tidal Volume 699 Blood Gas Pressure Support 8 Blood Gas PEEP or CPAP 5.0 Bl Gas Inspiratory/Expiratory Ratio 1:1.9 Test 03/29/25 07:30 03/28/25 07:14 03/28/25 02:42 03/27/25 18:33 Blood Gas Set Respiration Rate 24.0 Blood Gas Tidal Volume 450.0 Blood Gas Critical Value Read Back Yes Blood Gas Notified Whom Jesus grossman md Blood Gas Notified Time [id number] Blood Gas Notified By Tae lopez abattoir manager Random Vancomycin Level 12.9 ug/mL (5-10) Phosphorus Level 4.4 mg/dL (2.4-5.1) Iron Level 16 ug/dL (50-170) Total Iron Binding Capacity 264 ug/dL (250-425) Percent Iron Saturation 6.1 % (15-50) Ferritin 100.7 ng/mL (10-291) B-Type Natriuretic Peptide 422.15 pg/mL (0-100) Vitamin D 25-Hydroxy 46.2 ng/mL (30.0-100) Parathyroid Hormone (Intact) 39.0 pg/mL (18.4-80.1) Test 03/27/25 16:15 03/27/25 12:10 03/27/25 11:32 03/26/25 01:15 Urine Color Light-yellow (Yellow) Urine Clarity Turbid (Clear) Urine pH 5.0 (5.0-9.0) Urine Specific [place] 1.016 (1.001-1.035) Urine Protein Trace (Negative) Urine Ketones Negative (Negative) Urine Blood Negative /uL (Negative) Urine Nitrite Negative (Negative) Urine Bilirubin Negative (Negative) Urine Urobilinogen Normal mg/dL (Negative) Urine Leukocyte Esterase Negative /uL (Negative) Urine RBC 1 /hpf (0 - 4) Urine Microscopic WBC 9 /HPF (0-5) Urine Squamous Epithelial Cells None seen /hpf (<5) Urine Bacteria Few /hpf (None Seen) Urine Mucus Few (None Seen) Urine Creatinine 56.51 mg/dL (30.0-125.0) Urine Protein/Creatinine Ratio 0.88 Urine Sodium 29 mmol/L (40-220) Urine Glucose 1+ mg/dL (Normal) Urine Total Protein 49.5 mg/dL (1-14) Influenza Type A Antigen Negative (Negative) Influenza Type B Antigen Negative (Negative) SARS-CoV-2 Antigen (Rapid) Negative (NEGATIVE) POC Glucose 97 mg/dl (70-106) Troponin I High Sensitivity 9 ng/L (</=34) Test 03/26/25 00:10 Prothrombin Time 11.1 sec (9.3-11.8) Prothrombin Time INR 1.05 (0.9-1.15) Activated Partial Thromboplast Time 26.7 SEC (24.5-34.5) Lactic Acid Level 1.8 mmol/L (0.4-2.0) Other Laboratory Tests 04/03/25 05:58 Brief Hx & Hospital Course: Patient is 54-year-old female for history of pulmonary artery hypertension, HFrEF, COPD, sick sinus syndrome status post pacemaker, atrial fibrillation, diabetes mellitus, hyperlipidemia, hypertension who brought to the hospital with a chief complaint of shortness of breath. Patient was recently in the hospital due to shortness of breath, difficulty breathing, low oxygen saturation at 33%. As per daughter she started suddenly had trouble breathing, and then called 911. Patient was intubated on 03/26/2025. Past surgical history: bilateral tubal ligation Family history: Reviewed, noncontributory Personal history: Smoker, no history of alcohol or drug use. CKD STAGE II Brief hospital course: Patient came to the hospital due to shortness of breath. Was intubated on 03/26/2025. Patient has acute HFpEF, paroxysmal atrial fibrillation, history of hypertension for which electrolytes were monitored, echocardiogram on 11/19/2024 showed ejection fraction greater than 55%, left and right atrial enlargement, amiodarone 200 mg daily given, patient was discontinued on Plavix. And given Ivabrandine, lisnopril, jardiance, Lasix. strict I&Os were measured. Patient had acute on chronic hypoxic and hypercapnic respiratory failure, blood cultures showed negative, albuterol 2.5 mg, ipratropium nebulization given. IV levofloxacin changed to p.o. levofloxacin. Patient was extubated on 03/29/2025. Patient was started on advance to a soft mechanical diet. patient tolerated on 2 L oxygen. Denied any shortness of breath PT eval was done and patient was able to walk to the door and back. Patient had JEANIE on CKD stage 2 for which monitored clinically function, monitored electrolytes and replaced potassium. DVT prophylaxis given with Lovenox, GI prophylaxis with Protonix given. Patient has diabetes mellitus type 2 with HbA1c of 6% and dyslipidemia patient is started on insulin sliding scale. Patient is to follow-up with primary care doctor, pit clerk within 1 week. Patient is stable for discharge and has agreed to discharge plan. General: extubated, alert and orient x4 HEENT: Normocephalic, atraumatic, moist mucous membranes Respiratory/pulmonary: Normal breath sounds, no wheezing. Cardiovascular: Normal heart sounds S1 and S2 with no associated murmurs Abdomen: Abdomen nondistended, there is no pain to palpation in any of the abdominal quadrants, no palpable masses. Extremities: There is no peripheral edema present at the lower extremities. Peripheral Pulses: 3+ Radial (R). 3+ Radial (L). 3+ Dorsalis pedis (R). 3+ Dorsalis pedis(L) Skin: sacral ulcer stage I present Neurological: Intact cranial nerves with no focal neurologic deficits Patient is to take medications as prescribed and follow-up with PCP, pit clerk in 1-2 weeks time Spent on discharge planning 53 minutes Operations or Procedures ORDERING PHYSICIAN: NGOC GRIGGS MD PROCEDURE(s): CXRP - CHEST PORTABLE REASON: intubation ORDER NUMBER(s): [id number], ACCESSION NUMBER(s): [id number] CHEST RADIOGRAPH Indication: intubation Technique: Single frontal view of the chest was obtained COMPARISON: XY CHEST XRAY 1 VIEW on DOS: 03/14/25, XY CHEST XRAY 1 VIEW on DOS: 03/14/25, XY CHEST XRAY 1 VIEW on DOS: 03/13/25, XY CHEST XRAY 1 VIEW on DOS: 03/11/25, XY CHEST XRAY 1 VIEW on DOS: 03/11/25 FINDINGS: Lines and Tubes: Status post intubation. Endotracheal tube tip projects approximately 5.6 cm above the level of the brii. Enteric catheter courses below the level of the diaphragm and terminates beyond the inferior margin of the image. Lungs: Diffuse bilateral pulmonary opacity and increased prominence of the pulmonary vasculature and interstitium. Pleura: No effusion. No pneumothorax. Cardiomediastinal contours: Unremarkable Bones: Unremarkable IMPRESSION: 1. Status post intubation. Endotracheal tube tip projects approximately 5.6 cm above the level of the brii. 2. Enteric catheter courses below the level of the diaphragm and terminates beyond the inferior margin of the image. 3. Diffuse bilateral pulmonary opacities with increased prominence of the pulmonary vasculature and interstitium. ATED BY: JASON BALDWIN MD DICTATED DATE/TIME: 03/26/2552 SIGNED BY: JASON BALDWIN MD SIGNED DATE/TIME: 03/26/2552 ORDERING PHYSICIAN: NGOC GRIGGS MD PROCEDURE(s): HWOCT - HEAD WITHOUT CONTRAST REASON: ALOC ORDER NUMBER(s): [id number], ACCESSION NUMBER(s): [id number] EXAM: CT HEAD WITHOUT CONTRAST INDICATION: ALOC TECHNIQUE: CT of the head without intravenous contrast. Radiation Dose : 1. Head: CT Dose: CTDI volume is 53.65 mGy. Dose-length product is 1076.49 mGy*cm The dose indicators for CT are the volume Computed Tomography (CT) Dose Index (CTDIvol) and the Dose Length Product (DLP), and are measured in units of mGy and mGy-cm, respectively. These indicators are not patient dose, but values generated from the CT scanner acquisition factors. The report includes radiation exposure data for exposures received during this examination. COMPARISON: CT HEAD WITHOUT CONTRAST on DOS: 01/17/23 FINDINGS: There is no evidence of acute intracranial hemorrhage, extra-axial collection, mass effect, midline shift, herniation or hydrocephalus. Increased prominence of the ventricles, sulci and cisterns consistent with sequelae of atrophic cortical volume loss. The knight-white differentiation is intact. Moderate diffuse confluent periventricular and subcortical white matter hypoattenuation is nonspecific but may be related to small vessel ischemic disease. The visualized paranasal sinuses and mastoid air cells are clear. The surrounding soft tissues and osseous structures are unremarkable. Endotracheal tube noted. IMPRESSION: 1. No acute intracranial abnormality. 2. Chronic sequelae of microangiopathy and atrophic cortical volume loss. Radiation optimization: All CT scans at this facility use at least one of these dose optimization techniques: automated exposure control mA and/or kV adjustment per patient size (includes targeted exams where dose is matched to clinical indication) or iterative reconstruction. ATED BY: JASON BALDWIN MD DICTATED DATE/TIME: 03/26/25239 SIGNED BY: JASON BALDWIN MD SIGNED DATE/TIME: 03/26/25239 ORDERING PHYSICIAN: NGOC GRIGGS MD PROCEDURE(s): ABPLIV - CT AB PEL WITH IV CON ONLY REASON: abd pain ORDER NUMBER(s): [id number], ACCESSION NUMBER(s): [id number] Exam: CT CT AB PEL WITH IV CON ONLY History: abd pain COMPARISON: CT CT AB PELVIS W WO CON-IV ONLY on DOS: 06/03/24, CT CT AB PEL WO CON-NO ORAL OR IV on DOS: 09/14/22 Technique: Multidetector spiral CT of the abdomen and pelvis was performed from lung bases to pubic symphysis. Intravenous contrast was administered during this examination. Portal venous imaging was obtained. Axial, coronal and sagittal multiplanar reformats were performed by the technologist on a separate workstation. Radiation Dose : 1. Abdomen/Pelvis: CTDIvol 8.13 mGy, DLP 434.08 mGy*cm. CONTRAST: Type of contrast: Omniscan 300 Contrast injected: 100 ml Findings: Lung Bases: Small bilateral pleural effusions, tfkvn-ujegilv-mowi-left, with adjacent atelectasis. Diffuse bibasilar septal and interstitial thickening with moderate patchy infiltrate within the bilateral lower lobes and right middle lobe. Normal heart size. Cardiac pacing leads. No pericardial effusion. Liver: The liver is normal in size. No focal lesions. Normal hepatic vascular enhancement. Moderate periportal edema. Gallbladder and Biliary Tree: Unremarkable Spleen: Unremarkable Pancreas: The pancreas is normal in appearance without focal lesions or abnormal enhancement. Adrenal Glands: Unremarkable Kidneys: No hydronephrosis. Bladder: Unremarkable. Salas catheter. Bowel: The stomach is moderately distended with air-fluid level. Enteric catheter terminates within the gastric lumen. Moderate diffuse enhancing wall thickening of small and large bowel suggestive of sequelae of enterocolitis. Small bowel and colon are otherwise normal in caliber and distribution. The appendix is normal. Ascites: Absent Lymphadenopathy: No mesenteric, retroperitoneal or periportal lymphadenopathy. Abdominal Wall and Mesentery: Unremarkable. Vasculature: The visualized abdominal aorta is mildly ectatic and tortuous with extensive atherosclerotic vascular calcifications. Maximum transverse diameter of the infrarenal abdominal aorta is 2.2 cm. Abdominal and pelvic vessels demonstrate normal enhancement. Pelvic Organs: Unremarkable Musculoskeletal: No aggressive focal bony lesions, acute fractures or dislocation. IMPRESSION: 1. Moderate diffuse enhancing wall thickening of small and large bowel suggestive of sequelae of enterocolitis. 2. Moderate periportal edema. 3. Moderate gastric distention with air-fluid level. 4. Small bilateral pleural effusions, wyexf-jwywxfy-famk-left, with adjacent atelectasis. 5. Diffuse bibasilar septal and interstitial thickening with moderate patchy infiltrate within the bilateral lower lobes and right middle lobe. Radiation optimization: All CT scans at this facility use at least one of these dose optimization techniques: automated exposure control mA and/or kV adjustment per patient size (includes targeted exams where dose is matched to clinical indication) or iterative reconstruction. ATED BY: JASON BALDWIN MD DICTATED DATE/TIME: 03/26/25256 SIGNED BY: JASON BALDWIN MD SIGNED DATE/TIME: 03/26/25256 ORDERING PHYSICIAN: GRACE DUGAN MD PROCEDURE(s): KIDUS - KIDNEY REASON: jeanie ORDER NUMBER(s): [id number], ACCESSION NUMBER(s): [id number] ADDENDUM ADDENDUM # 1 ADDENDUM: Bilateral pleural effusions, likely small although the size is suboptimally assessed on this study. ORIGINAL REPORT CLINICAL HISTORY: jeanie TECHNIQUE: Complete ultrasound exam of the kidneys and bladder was performed. COMPARISON: US KIDNEY on DOS: 05/22/24 FINDINGS: The right kidney has normal echogenicity and measures 8.4 cm. There is no focal parenchymal abnormality or evidence for stone. There is no hydronephrosis. The poorly seen left kidney has normal echogenicity and measures 8.5 cm. There is no focal parenchymal abnormality or evidence for stone. There is no hydronephrosis. The bladder is decompressed by Aslas catheter. IMPRESSION: Slightly limited exam with small kidneys. No hydronephrosis. ATED BY: MOISES SAMUEL MD DICTATED DATE/TIME: 03/27/252308 SIGNED BY: MOISES SAMUEL MD SIGNED DATE/TIME: 03/27/252308 CC: CLINICAL HISTORY: jeanie TECHNIQUE: Complete ultrasound exam of the kidneys and bladder was performed. COMPARISON: US KIDNEY on DOS: 05/22/24 FINDINGS: The right kidney has normal echogenicity and measures 8.4 cm. There is no focal parenchymal abnormality or evidence for stone. There is no hydronephrosis. The poorly seen left kidney has normal echogenicity and measures 8.5 cm. There is no focal parenchymal abnormality or evidence for stone. There is no hydronephrosis. The bladder is decompressed by Salas catheter. IMPRESSION: Slightly limited exam with small kidneys. No hydronephrosis. ATED BY: LAN CHONG MD DICTATED DATE/TIME: 03/27/251657 SIGNED BY: LAN CHONG MD SIGNED DATE/TIME: 03/27/251657 CC: ORDERING PHYSICIAN: MARIELY PORTER PROCEDURE(s): CXR1 - CHEST XRAY 1 VIEW REASON: rule out pul. congestion ORDER NUMBER(s): [id number], ACCESSION NUMBER(s): [id number] CHEST RADIOGRAPH Indication: rule out pul. congestion Technique: Single frontal view of the chest was obtained COMPARISON: XY CHEST XRAY 1 VIEW on DOS: 03/31/25, XY CHEST XRAY 1 VIEW on DOS: 03/30/25, XY CHEST XRAY 1 VIEW on DOS: 03/29/25, XY CHEST XRAY 1 VIEW on DOS: 03/28/25, XY CHEST PORTABLE on DOS: 03/27/25 FINDINGS: Cardiac silhouette is mildly enlarged. Stable diffuse prominence of the pulmonary vasculature. No dense focal airspace disease. Stable trace bilateral pleural effusions with mild bibasilar atelectasis IMPRESSION: Stable pulmonary venous congestion. ATED BY: MOISES SAMUEL MD DICTATED DATE/TIME: 04/03/2549 SIGNED BY: MOISES SAMUEL MD SIGNED DATE/TIME: 04/03/25548 CC: Condition at Discharge: Stable Final Diagnosis/Problems List Acute metabolic encephalopathy Acute HFpEF Paroxysmal atrial fibrillation Essential hypertension Acute on chronic hypoxic and hypercapnic respiratory failure Pulmonary hypertension Chronic obstructive pulmonary disease exacerbation JEANIE on CKD STAGE II Hypokalemia Septic shock ?due to pneumonia Gram-positive versus negative Normocytic, normochromic anemia Diabetes mellitus type 2 HGB A1c 6% Dyslipidemia Discharge Disposition: Home with Health Services Discharge Instruct/Medications Diet: Cardiac 2g Na,low cholest Activity: No Restrictions, As Tolerated Follow Up/Referral: Follow-up With discharge Clinic in 1 week Follow-up with pit clerk in 1-2 weeks Medications: As per EMR Scheduled Amiodarone Hcl (Amiodarone Hcl), 200 MG PO DAILY, (Reported) Ascorbic Acid (Vitamin C Tablet), 500 MG PO BID Atorvastatin Calcium (Lipitor), 1 TAB PO QPM, (Reported) Dapagliflozin Propanediol (Farxiga), 5 MG PO DAILY, (Reported) Donepezil Hydrochloride (Donepezil Hcl), 1 TAB PO DAILY@DINNER, (Reported) Furosemide (Lasix), 1 TAB PO DAILY Ivabradine HCl (Ivabradine Hydrochloride), 5 MG PO BID Levofloxacin Hemihydrate (Levofloxacin), 1 TAB PO DAILY Lisinopril (Lisinopril), 10 MG PO DAILY Metoprolol Tartrate (Metoprolol Tartrate), 0.5 TAB PO BID Scheduled PRN Albuterol Sulfate (Albuterol Sulfate Hfa), 2 PUFF IN Q6HP PRN for SHORTNESS OF BREATH, (Reported) Miscellaneous Medications Umeclidinium-Vilanterol (Anoro Ellipta 62.5-25 Mcg/INH), 1 AER IN, (Reported) Discontinued Medications Amoxicillin & Pot Clavulanate (Augmentin Tablet), 875 MG PO Q12HR Clopidogrel Bisulfate (Clopidogrel), 75 MG PO DAILY Hydrochlorothiazide W/Triamter (Dyazide 37.5/25MG), 1 CAP PO DAILY, (Reported) Metoprolol Tartrate (Lopressor), 25 MG PO Q12HR, (Reported) Sulfamethoxazole-Trimethoprim (Bactrim), 1 TAB PO BID Durable Medical Equipment Blood Glucose Monitoring Suppl (Easy Touch Glucose Monito), AC XX, (DME) Discharge Statement: "Patient was advised to return to the ER or call 911 if any headaches, dizziness, shortness of breath, chest pain, abdominal pain, bleeding, fevers, or worsening of medical condition. Patient was counseled about treatment plan, medications, possible side effects, patientverbalized understanding. All questions were answered to the best of my ability. This discharge took greater then 30 minutes in planning, reviewing documentation, counseling the patient, and discussing with other team members." ASSESSMENT ASSESSMENT Assessment Acute on chronic CHF Paroxysmal atrial fibrillation Acute on chronic hypoxic and hypercapnic respiratory failure Pulmonary hypertension Septic shock likely due to pneumonia MARIELY PORTER RESIDENT Apr 03, 2025 16:54
== END 2025-04-03 17:14 | disposition home health service (06) | DRG 871 ==
LOC: ER 00:03 → EDBD 00:03 → OVERFLOW 04:05 → ICU CENTRL 03-27 04:36 → TELE-WESTW 03-31 21:40
PROVIDERS: ADMIT Internal Medicine Pulmonary Disease; ATTEND Internal Medicine Pulmonary Disease
PROC: 0BH17EZ Insertion of Endotracheal Airway into Trachea, Via Natural or Artificial Opening (ICD-10-PCS; principal; 2025-03-26)
PROC: 5A1945Z Respiratory Ventilation, 24-96 Consecutive Hours (ICD-10-PCS; 2025-03-26)
PROC: 05HF33Z Insertion of Infusion Device into Left Cephalic Vein, Percutaneous Approach (ICD-10-PCS; 2025-03-27)
PROC: B54NZZA Ultrasonography of Left Upper Extremity Veins, Guidance (ICD-10-PCS; 2025-03-27)
DX: A41.59 Other Gram-negative sepsis (principal); G93.41 Metabolic encephalopathy; J15.69 Pneumonia due to other Gram-negative bacteria; J96.22 Acute and chronic respiratory failure with hypercapnia; I50.33 Acute on chronic diastolic (congestive) heart failure; R65.21 Severe sepsis with septic shock; J96.21 Acute and chronic respiratory failure with hypoxia; J15.9 Unspecified bacterial pneumonia; E87.29 Other acidosis; J44.0 Chronic obstructive pulmonary disease with (acute) lower respiratory infection; N17.9 Acute kidney failure, unspecified; I13.0 Hypertensive heart and chronic kidney disease with heart failure and stage 1 through stage 4 chronic kidney disease, or unspecified chronic kidney disease; I27.20 Pulmonary hypertension, unspecified; E11.22 Type 2 diabetes mellitus with diabetic chronic kidney disease; N18.30 Chronic kidney disease, stage 3 unspecified; D63.1 Anemia in chronic kidney disease; J44.1 Chronic obstructive pulmonary disease with (acute) exacerbation; E83.42 Hypomagnesemia; E78.5 Hyperlipidemia, unspecified; I25.5 Ischemic cardiomyopathy; I48.0 Paroxysmal atrial fibrillation; E87.6 Hypokalemia; K52.9 Noninfective gastroenteritis and colitis, unspecified; Z83.3 Family history of diabetes mellitus; Z82.49 Family history of ischemic heart disease and other diseases of the circulatory system; F17.210 Nicotine dependence, cigarettes, uncomplicated; Z98.61 Coronary angioplasty status; Z99.81 Dependence on supplemental oxygen
CPT/HCPCS: 31500; 36415; 36600; 70450; 71045; 74177; 76775; 80048; 80053; 80202; 81001; 82306; 82570; 82728; 82805; 82962; 83540; 83550; 83605; 83735; 83880; 83970; 84100; 84156; 84300; 84484; 85025; 85610; 85730; 87040; 87070; 87081; 87205; 87426; 87804; 92610; 93005; 93306; 94003; 94640; 96365; 96368; 97110; 97116; 97163; 97530; 99291; G0378; J1071; J1756; J1956; J2405; J2470; J2543; J2704; J3480

== ENCOUNTER 2025-04-07 06:35 | Inpatient (IN) | payer MEDICARE, OTHER ==
[2025-04-07] VITALS (7 sets, daily range): BP systolic 153–165; BP diastolic 73–83; PULSE 69–75; RESP 18–29; TEMP 97.8–98.4; O2SAT 95–100
[~2025-04-07] VITALS: Ht 160 cm; Wt 53.0 kg
[~2025-04-07 06:35] MED LIST changes: -AUG875T PO; -CLOP75TA70 PO; +FURO1TAB33 PO; +IVAB5TAB2 PO; +LEVO750T40 PO; +LISI10TA34 PO; -MET25T PO; +METO25TA5 PO; -SULF400T11 PO; -TRIA37.587 PO
--- NOTE | 2025-04-07 06:47 | ECG ---
[facility] Test Date: 2025-04-07 Test Time: 06:45:22 Pat Name: FLORENTINO PATRICK Department: ED Room: [address] [place] [address] Gender: F Program Mgr: MARIA R : 1940 Requested By: STACY OTERO Order Number: [id number] Reading MD: Constantino Huggins Measurements Intervals [place] Rate: 79 P: 0 WI: 0 QRS: 99 QRSD: 106 T: 265 QT: 417 QTc: 479 Interpretive Statements Afib/flut and V-paced complexes No further rhythm analysis attempted due to paced rhythm Right axis deviation Borderline low voltage, extremity leads Abnormal T, consider ischemia, diffuse leads Electronically Signed On 04-07-2025 18:00:35 PST by Constantino Huggins Please click the below link to view image of tracing.
--- NOTE | 2025-04-07 06:51 | ED.PDOC ---
SOB-HPI HPI Comments 84-year-old female with PMHx a-fib, COPD, HTN, CHF, HLD, DM who presents to the ED with a chief complaint of shortness of breath onset today about 3 hours prior to ED arrival. Per EMS, patient is usually on 3L of O2 at home, was on 2L of O2 , sat was 70%. Patient states she used a breathing treatment prior to EMS arrival with no improvement of symptoms, was placed on an NRB. She has been seen in this ED multiple times for similar symptoms, last ED visit was 03/26/25, was intubated and was discharged on 04/03/25. Denies chest pain dizziness, headache, fevers, chills, vomiting, diarrhea, cough, cold, congestion. No other symptoms or modifying factors Time Seen by MD: 06:40 Primary Care Provider: Unknown Reviewed notes: Medications, Allergies Information Source: Patient, Emergency Med Personnel Mode of Arrival: EMS Severity: Moderate Timing: Hours Duration: Since onset Context: At Rest PE Risk Factors: None History of: COPD, CHF, Intubation Prehospital treatment: Breathing Tx, Oxygen Past Medical History PAST MEDICAL HISTORY: AFIB, CHF, COPD, DM, High Lipids, HTN Surgical History: BTL, Pacemaker, Tubal Ligation MINE ENGINEER History: No Pertinent MINE ENGINEER History Family History Family History: Family hx of DM, Family hx of HTN Social History Smoker: Quit Greater Than 1 Year, Cigarettes Alcohol: Denies ETOH Use Drugs: Denies Drug Use Lives In: Home Constitutional: denies: chills, diaphoresis, fatigue, fever, malaise, sweats, weakness, others EENTM: denies: blurred vision, double vision, ear bleeding, ear discharge, ear drainage, ear pain, ear ringing, eye pain, eye redness, hearing loss, mouth pain, mouth swelling, nasal discharge, nose bleeding, nose congestion, nose pain, photophobia, tearing, throat pain, throat swelling, voice changes, others Respiratory: reports: shortness of breath; denies: cough, hemoptysis, orthopnea, SOB at rest, SOB with excertion, stridor, wheezing, others Cardiovascular: denies: chest pain, dizzy spells, diaphoresis, Dyspnea on exertion, edema, irregular heart beat, left arm pain, lightheadedness, p alpitations, PND, syncope, others Gastrointestinal: denies: abdomen distended, abdominal pain, blood streaked bowels, constipated, diarrhea, dysphagia, difficulty swallowing, hematemesis, melena, nausea, poor appetite, poor fluid intake, rectal bleeding, rectal pain, vomiting, others Genitourinary: denies: abnormal vagina bleeding, burning, dyspareunia, dysuria, flank pain, frequency, hematuria, incontinence, pain, , vagina discharge, urgency, others Neurological: denies: dizziness, fainting, headache, left sided numbness, left sided weakness, numbness, paresthesia, pre-existing deficit, right sided numbness, right sided weakness, seizure, speech problems, tingling, tremors, weakness, others Musculoskeletal: denies: back pain, gout, joint pain, joint swelling, muscle pain, muscle stiffness, neck pain, others Integumetry: denies: bruises, change in color, change in hair/nails, dryness, laceration, lesions, lumps, rash, wounds, others Allergic/Immunocompromised: denies: Difficulty Healing, Frequent Infections, Hives, Itching, others Hematologic/Lymphatic: denies: anemia, blood clots, easy bleeding, easy bruising, swollen glands, others Endocrine: denies: excessive hunger, excessive sweating, excessive thirst, excessive urination, flushing, intolerance to cold, intolerance to heat, unexplained weight gain, unexplained weight loss, others Psychiatric: denies: anxiety, bipolar disorder, depression, hopeless, panic disorder, schizophrenia, sleepless, suicidal, others All Other Systems: Reviewed and Negative Physical Exam General Appearance: Moderate Distress, Thin HEENT: Normal ENT Inspection, Pharynx Normal, TMs Normal Neck: Full Range of Motion, Non-Tender, Normal, Normal Inspection Respiratory: Chest Non-Tender, No Accessory Muscle Use, Respiratory Distress, Wheezing Cardiovascular: No Edema, No JVD, No Murmur, No Gallop, Normal Peripheral Pulses, Regular Rate/Rhythm Breast Exam: Deferred Gastrointestinal: No Organomegaly, Non Tender, No Pulsatile Mass, Normal Bowel Sounds, Soft Genitalia: Deferred Pelvic: Deferred Rectal: Deferred Extremities: No calf tenderness, Normal capillary refill, Normal inspection, Normal range of motion, Non-tender, No pedal edema Musculoskeletal : Apperance: Normal Neurologic: Alert, spiritual counselor II-XII nml as Tested, No Motor Deficits, Normal Affect, Normal Mood, No Sensory Deficits Cerebellar Function: Normal Reflexes: Normal Skin: Dry, Normal Color, Warm Lymphatic: No Adenopathy EKG EKG : Pulse Rate (adult): 79 [place]: RAD Cardiac Rhythm: Afib Was a procedure done? Was a procedure done?: No Differential Dx Differential Diagnosis: Bronchitis, CHF, COPD, Pneumonia X-Ray, Labs, Meds, VS Vital Signs Date Time Temp Pulse Resp B/P (MAP) Pulse Ox O2 Delivery O2 Flow Rate FiO2 04/07/25 07:16 97.2 88 31 177/77 (110) 100 97.2 04/07/25 06:51 79 04/07/25 06:50 98.3 90 28 186/101 98 98.3 04/07/25 06:45 79 Lab Test 04/07/25 07:35 04/07/25 06:50 Range/Units Troponin I High Sensitivity Pending Pending White Blood Count 14.8 #H 4.4-10.8 10^3/uL Red Blood Count 3.75 L 4.0-5.20 10^6/uL Hemoglobin 10.2 L 12.2-16.2 g/dL Hematocrit 31.9 #L 36.0-46.0 % Mean Corpuscular Volume 85.1 80.0-100.0 fL Mean Corpuscular Hemoglobin 27.3 L 28.0-32.0 pg Mean Corpuscular Hemoglobin Concent 32.1 32.0-36.0 g/dL Red Cell Distribution Width 18.6 H 11.8-14.3 % Platelet Count 399 140-450 10^3/uL Mean Platelet Volume 7.1 6.9-10.8 fL Neutrophils (%) (Auto) 86.3 H 37.0-80.0 % Lymphocytes (%) (Auto) 4.1 L 10.0-50.0 % Monocytes (%) (Auto) 8.2 0.0-12.0 % Eosinophils (%) (Auto) 1.0 0.0-7.0 % Basophils (%) (Auto) 0.4 0.0-2.0 % Neutrophils # (Auto) 12.7 H 1.6-8.6 10 ^3/uL Lymphocytes # (Auto) 0.6 0.4-5.4 10 ^3/uL Monocytes # (Auto) 1.2 0-1.3 10 ^3/uL Eosinophils # (Auto) 0.1 0-0.8 10 ^3/uL Basophils # (Auto) 0.1 0-0.2 10 ^3/uL Nucleated Red Blood Cells 0.0 % Sodium Level 141 136-145 mmol/L Potassium Level 3.5 3.5-5.1 mmol/L Chloride Level 102 98-107 mmol/L Carbon Dioxide Level 31 20-31 mmol/L Anion Gap 8 5-15 Blood Urea Nitrogen Pending Creatinine Pending Glomerular Filtration Rate Calc Pending BUN/Creatinine Ratio Pending Serum Glucose Pending Calcium Level 9.1 8.7-10.4 mg/dL B-Type Natriuretic Peptide Pending Current Medications Medications (Trade) Dose Ordered Sig/Long Route Start Time Stop Time Status Last Admin Methylprednisolone Sodium Succinate (Solu Medrol) 125 mg ONCE ONCE IV 04/07/25 06:45 04/07/25 06:46 DC 04/07/25 07:11 IMPRESSION: 1. No significant change bilateral interstitial prominence and Bibasilar airsp matthew disease as well as pleural effusions. Hep-Lock was established The patient was given Solu-Medrol 125 mg IV push The patient's CBC shows an elevated white blood cell count of 14.8 The rest of the CBC shows anemia with a hemoglobin of 10.2 and hematocrit of 31.9 The chemistry panel is within normal limits. At this time, the patient is being admitted with a diagnosis of COPD exacerbation. The patient understands and agrees with the management. Images Reviewed?: Images reviewed and evaluated by me Time of 1ST Reevaluation: 07:10 Reevaluation 1ST: Unchanged Patient Education/Counseling: Diagnosis, Treatment, Prognosis Family Education/Counseling: No Family Present SEPSIS Sepsis Screen Physician Orders Troponin-I Hs (04/07/25 06:43) B-Type Natriuretic Peptide (04/07/25 06:43) Urinalysis (04/07/25 06:43) Chest Portable (04/07/25 06:43) Heplock Iv (04/07/25 06:43) Pulse Oximetry (04/07/25 06:43) Oxygen (04/07/25 06:43) Forming Roll Operator Heavy Duty (04/07/25 06:43) Blood Pressure (04/07/25 06:43) Basic Metabolic Panel (04/07/25 06:43) Covid19 Antigen Nadya (04/07/25 ) Rapid Influenza A&B (04/07/25 06:43) Troponin-I Hs (04/07/25 07:43) Troponin-I Hs (04/07/25 09:43) Electrocardigram (04/07/25 07:43) Electrocardigram (04/07/25 09:43) Vital Signs Date Time Temp Pulse Resp B/P (MAP) Pulse Ox O2 Delivery O2 Flow Rate FiO2 04/07/25 07:16 97.2 88 31 177/77 (110) 100 97.2 04/07/25 06:51 79 04/07/25 06:50 98.3 90 28 186/101 98 98.3 04/07/25 06:45 79 Laboratory Tests Test 04/07/25 06:50 White Blood Count 14.8 10^3/uL (4.4-10.8) #H Medications Medications Dose Ordered Sig/Long Route Start Time Stop Time Status Last Admin Dose Admin Methylprednisolone Sodium Succinate 125 mg ONCE ONCE IV 04/07/25 06:45 04/07/25 06:46 DC 04/07/25 07:11 Departure 1 Departure Time of Disposition: 07:47 Impression: Primary Impression: Acute and chronic respiratory failure Additional Impression: COPD exacerbation Disposition: 09 ADMITTED INPATIENT Admit to: [facility] Condition: Fair Critical Care Note Critical Care Time?: Yes (45 min-critical care time only) Stability Stability form required: Yes Unstable for transfer: Telemetry monitoring (Telemetry monitoring required), ED Physician Assesment (Clinical assesment) Heart Score Heart Score: Heart Score Response (Comments) Value History N/A 0 EKG N/A 0 Age N/A 0 Risk Factors N/A 0 Troponin N/A 0 Total 0 I personally scribed for STACY OTERO MD ([email or web address]) on 04/07/25 at 06:51. Electronically submitted by Keri Aguirre ([email or web address]). I personally scribed for STACY OTERO MD ([email or web address]) on 04/07/25 at 07:44. Electronically submitted by Keri Aguirre ([email or web address]). STACY OTERO MD Apr 07, 2025 06:51
[2025-04-07] MEDS: methylPREDNISolone SOD SUCC 125 MG/2 ML VL IV ONE (07:11)
[2025-04-07 07:15] LABS: Hematocrit 31.9 % (36.0-46.0); Hemoglobin 10.2 g/dL (12.2-16.2); Mean Corpuscular Hemoglobin 27.3 pg (28.0-32.0); Mean Corpuscular Volume 85.1 fL (80.0-100.0); Nucleated Red Blood Cells % 0.0 %
--- NOTE | 2025-04-07 07:35 | DVH ---
CHEST RADIOGRAPH Indication: sob Technique: Single frontal view of the chest was obtained Comparison: XY CHEST XRAY 1 VIEW on DOS: 04/03/25 FINDINGS: Lines and Tubes: Dual-chamber pacemaker with right atrial and ventricular leads is similar to prior study. Lungs: Increased bilateral interstitial prominence. Bibasilar airspace disease. Findings are similar to prior study. Pleura: Small bilateral pleural effusions. No pneumothorax. Cardiomediastinal contours: Unremarkable Bones: No acute osseous abnormality. IMPRESSION: 1. No significant change bilateral interstitial prominence and Bibasilar airspace disease as well as pleural effusions.
[2025-04-07 07:42] LABS: Chloride 102 mmol/L (98-107); Sodium 141 mmol/L (136-145)
[2025-04-07 07:43] LABS: Anion Gap 8 (5-15); Calcium 9.1 mg/dL (8.7-10.4); Carbon Dioxide 31 mmol/L (20-31)
[2025-04-07 07:44] LABS: Potassium 3.5 mmol/L (3.5-5.1)
[2025-04-07 07:48] LABS: BUN/Creatinine Ratio 13.7 (10.0-20.0); Blood Urea Nitrogen 16 mg/dL (9-23); Glucose 174 mg/dL (74-106)
--- NOTE | 2025-04-07 07:53 | ECG ---
[facility] Test Date: 2025-04-07 Test Time: 07:52:01 Pat Name: FLORENTINO PATRICK Department: ED Room: [address] [place] [address] Gender: F Equity Sales Assistant: GINA : 1940 Requested By: STACY OTERO Order Number: [id number] Reading MD: Constantino Huggins Measurements Intervals [place] Rate: 76 P: 0 CO: 0 QRS: 129 QRSD: 96 T: 266 QT: 458 QTc: 516 Interpretive Statements Afib/flut and V-paced complexes No further rhythm analysis attempted due to paced rhythm Right axis deviation Repol abnrm suggests ischemia, anterolateral Prolonged QT interval Baseline wander in lead(s) V3 Electronically Signed On 04-07-2025 18:01:54 PST by Constantino Huggins Please click the below link to view image of tracing.
[2025-04-07 09:05] LABS: COVID19 ANTIGEN SOFIA FIA NEGATIVE (NEGATIVE)
[2025-04-07 10:43] LABS: Urine Budding Yeast MODERATE /hpf (None Seen); Urine Protein, UAD TRACE (Negative)
[2025-04-07] MEDS ORDERED: HYDROcodone-ACET 5/325MG TAB PO PRN (12:30)
[2025-04-07] MEDS ORDERED: DOCUSATE SOD 100 MG CAP PO PRN (12:30)
[2025-04-07] MEDS ORDERED: NITROGLYCERIN 0.4 MG SL TAB SL PRN (12:30)
[2025-04-07] MEDS: FUROSEMIDE 20 MG/2 ML VIAL IV ONE (12:30)
[2025-04-07] MEDS ORDERED: ONDANSETRON HCL 4 MG/2 ML VIAL IV PRN (12:30)
[2025-04-07] MEDS ORDERED: ACETAMINOPHEN 325 MG TAB PO PRN (12:30)
[2025-04-07] MEDS ORDERED: MORPHINE SULFATE INJ 2 MG/ml SYRG IV PRN (12:30)
[2025-04-07] MEDS ORDERED: NIFE1TAB31 PO (12:32)
[2025-04-07] MEDS ORDERED: METF-370 PO (12:32)
--- NOTE | 2025-04-07 12:47 | DVHHP2 ---
History of Present Illness Reason for Visit: Shortness of breath History of Present Illness Lauren Akers is an 84-year-old female with past medical history of CHF, COPD, home oxygen use, hypertension, hyperlipidemia, atrial fibrillation, and diabetes who came to the hospital via EMS for shortness of breath. Patient states her shortness of breath began about 0300. She tried a breathing treatment with no improvement so EMS was called. When EMS arrived her oxygenation was in the 70's on her home oxygen of 2L N/C. She was put on a mask, given a breathing treatment, and brought to the hospital. Patient has been recently admitted here twice in the last month for shortness of breath and both tines she was i ntubated. She states prior to her 2 admissions she was independent with her ADLs, able to get around her house with a walker, and go drive to fast food to get food if she wanted. She was not able to go grocery shopping or stand long enough to cook meals. Her daughter assist with that or she has groceries delivered. She states since her last admission she has not been able to ambulate independently, and is developing a pressure wound. Cardiovascular: AFIB, CHF, HTN, hyperipidemia, Other (Pacemaker) Pulmonary: COPD Past Surgical History: Other (Carotid ), Tubal Ligation Smoke: Quit (2-3 years ago) ALCOHOL: none Drugs: None Lives: with Family Domestic Violence: Neg Review of Systems Constitutional: No: Fever, Chills, Sweats, Weakness, Malaise, Other Eyes: No: Pain, Vision change, Conjunctivae inflammation, Eyelid inflammation, Other, Redness ENT: No: Ear pain, Ear discharge, Nose pain, Nose discharge, Nose congestion, Mouth pain, Mouth swelling, Throat pain, Throat swelling, Other Respiratory: Shortness of breath, SOB with excertion, Wheezing; No: Cough, Dry, Hemoptysis, Pleuritic Pain, Sputum, Wheezing, Other Cardiovascular: No: Chest Pain, Palpitations, Orthopnea, Paroxysmal Noc. Dyspnea, Edema, Lt Headedness, Other Gastrointestinal: No: Nausea, Vomiting, Abdominal Pain, Diarrhea, Constipation, Melena, Hematochezia, Other Genitourinary: No Dysuria, No Frequency, No Incontinence, No Hematuria, No Retention, No Other Musculoskeletal: No: other, neck pain, shoulder pain, arm pain, back pain, hand pain, leg pain, foot pain Skin: No: Rash, Lesions, Jaundice, Bruising, Other Neurological: No: Weakness, Numbness, Incoordination, Change in speech, Confusion, Seizures, Other Allergies: Coded Allergies: NO KNOWN ALLERGIES (Unverified , 08/19/17) Medications Current Medications Medications Dose Ordered Sig/Long Route Start Time Stop Time Status Last Admin Dose Admin Sodium Chloride 10 ml Q8HR IV 04/07/25 14:00 UNV Acetaminophen/ Hydrocodone Bitart 1 tab Q4HP PRN PO 04/07/25 12:30 UNV Ondansetron HCl 4 mg Q4HP PRN IV 04/07/25 12:30 UNV Patient Own Medication 5 mg DAILY PO 04/08/25 10:00 UNV Patient Own Medication 10 mg DAILY PO 04/08/25 10:00 UNV Exam Vital Signs Vital Signs Date Time Temp Pulse Resp B/P (MAP) Pulse Ox O2 Delivery O2 Flow Rate FiO2 04/07/25 10:00 98.4 74 29 165/73 (103) 100 98.4 04/07/25 07:15 Nasal Cannula* 2 28 General Appearance: Alert, Oriented X3, Cooperative, mild distress HEENT: Atraumatic, PERRLA, Mucous membr. moist/pink Respiratory: Other (bilateral wheezing and crackles ) Cardiovascular: Regular rate, Normal S1, Normal S2 Abdominal: Normal bowel sounds, Soft, No tenderness Extremities: No clubbing, No cyanosis, No edema, Normal pulses Skin: No rashes, No significant lesion (open pressure ulcer to sacrum) Neuro: Other (generalized weakness, has not been ambulating much since last admission) Psych/Mental Status: Mental status NL, Mood NL Labs/Xrays Labs Test 04/07/25 10:03 04/07/25 08:18 04/07/25 07:36 04/07/25 07:35 Range/Units Urine Color Light-yellow Yellow Urine Clarity Clear Clear Urine pH 7.0 5.0-9.0 Urine Specific [place] 1.022 1.001-1.035 Urine Protein Trace H Negative Urine Ketones Negative Negative Urine Blood Negative Negative /uL Urine Nitrite Negative Negative Urine Bilirubin Negative Negative Urine Urobilinogen Normal Negative mg/dL Urine Leukocyte Esterase 1+ Negative /uL Urine RBC 12 0 - 4 /hpf Urine Microscopic WBC 25 H 0-5 /HPF Urine Squamous Epithelial Cells Few <5 /hpf Urine Bacteria None seen None Seen /hpf Urine Yeast (Budding) Moderate None Seen /hpf Urine Glucose 4+ H Normal mg/dL Influenza Type A Antigen Negative Negative Influenza Type B Antigen Negative Negative SARS-CoV-2 Antigen (Rapid) Negative NEGATIVE POC Glucose 153 H 70-106 mg/dl Troponin I High Sensitivity 11 </=34 ng/L Test 04/07/25 06:50 Range/Units White Blood Count 14.8 #H 4.4-10.8 10^3/uL Red Blood Count 3.75 L 4.0-5.20 10^6/uL Hemoglobin 10.2 L 12.2-16.2 g/dL Hematocrit 31.9 #L 36.0-46.0 % Mean Corpuscular Volume 85.1 80.0-100.0 fL Mean Corpuscular Hemoglobin 27.3 L 28.0-32.0 pg Mean Corpuscular Hemoglobin Concent 32.1 32.0-36.0 g/dL Red Cell Distribution Width 18.6 H 11.8-14.3 % Platelet Count 399 140-450 10^3/uL Mean Platelet Volume 7.1 6.9-10.8 fL Neutrophils (%) (Auto) 86.3 H 37.0-80.0 % Lymphocytes (%) (Auto) 4.1 L 10.0-50.0 % Monocytes (%) (Auto) 8.2 0.0-12.0 % Eosinophils (%) (Auto) 1.0 0.0-7.0 % Basophils (%) (Auto) 0.4 0.0-2.0 % Neutrophils # (Auto) 12.7 H 1.6-8.6 10 ^3/uL Lymphocytes # (Auto) 0.6 0.4-5.4 10 ^3/uL Monocytes # (Auto) 1.2 0-1.3 10 ^3/uL Eosinophils # (Auto) 0.1 0-0.8 10 ^3/uL Basophils # (Auto) 0.1 0-0.2 10 ^3/uL Nucleated Red Blood Cells 0.0 % Sodium Level 141 136-145 mmol/L Potassium Level 3.5 3.5-5.1 mmol/L Chloride Level 102 98-107 mmol/L Carbon Dioxide Level 31 20-31 mmol/L Anion Gap 8 5-15 Blood Urea Nitrogen 16 9-23 mg/dL Creatinine 1.17 H 0.550-1.02 mg/dL Glomerular Filtration Rate Calc 46 >90 mL/min BUN/Creatinine Ratio 13.7 10.0-20.0 Serum Glucose 174 H 74-106 mg/dL Calcium Level 9.1 8.7-10.4 mg/dL B-Type Natriuretic Peptide 1050.11 0-100 pg/mL CHEST RADIOGRAPH FINDINGS: Lines and Tubes: Dual-chamber pacemaker with right atrial and ventricular leads is similar to prior study. Lungs: Increased bilateral interstitial prominence. Bibasilar airspace disease. Findings are similar to prior study. Pleura: Small bilateral pleural effusions. No pneumothorax. Cardiomediastinal contours: Unremarkable Bones: No acute osseous abnormality. IMPRESSION: 1. No significant change bilateral interstitial prominence and Bibasilar airspace disease as well as pleural effusions. SEPSIS Sepsis Screen Date sepsis recognized/suspect: Apr 07, 2025 Time Sepsis recognized/suspect: 714 Recent Procedure: No On Antibiotic Therapy: No Respiratory Rate >20: No Heart Rate >90: No Temp<36 C (96.8 F) or >38.3 C: No SBP <90 or MAP <65 mmHG: No New Acute Mental Status Change: No Is the patient on CPAP, BIPAP,: No Physician Orders Chest Portable (04/07/25 06:43) Heplock Iv (04/07/25 06:43) Pulse Oximetry (04/07/25 06:43) Oxygen (04/07/25 06:43) Manager In Training (04/07/25 06:43) Blood Pressure (04/07/25 06:43) Electrocardigram (04/07/25 09:43) Admit (04/07/25 12:23) Code Status (04/07/25 12:23) Sodium Chloride Lock (Saline Lock Ns) (04/07/25 14:00) Hydrocodone-Acet 5/325mg Tab ([place] 5/32 (04/07/25 12:30) Ondansetron Hcl (Zofran) (04/07/25 12:30) Docusate Sodium Capsule (Colace Capsule) (04/07/25 12:30) Fall Risk Precautions In Place QSHIFT (04/07/25 12:23) Complete Blood Count (04/08/25 04:00) Comprehensive Metabolic Panel (04/08/25 04:00) Cardiac Diet-2gna,Lofat,Lochol (04/07/25 Lunch) Pt Request For Service (04/07/25 12:23) Condition: Serious (04/07/25 12:23) Acetaminophen Tablet (Tylenol Tablet) (04/07/25 12:30) Nitroglycerin Sublingual (Ntrostat Subli (04/07/25 12:30) Morphine Sulfate Injection (04/07/25 12:30) Stat Ekg For Chest Pain (04/07/25 12:23) Notify Md Of Changes From Base (04/07/25 12:23) Mobile Crane Operator For 24 Hours (04/07/25 12:23) Emergency Dysrhythmia Protocol (04/07/25 12:23) Rhythm Strips Once Every Shift (04/07/25 12:23) Oxygen By Nasal Cannula (04/07/25 12:23) * Wound Consult (04/07/25 ) Wound Culture W/ Gs (04/07/25 12:23) Furosemide Injection (Lasix Injection) (04/07/25 12:30) Furosemide Injection (Lasix Injection) (04/08/25 10:00) Methylprednisolone Sod Succ (Solu Medrol (04/07/25 22:00) Ipratropium Medneb (Atrovent Medneb) (04/07/25 18:00) Albuterol Medneb (Ventolin Medneb) (04/07/25 18:00) Amiodarone Tablet (Cordarone Tablet) (04/08/25 10:00) Metoprolol Tartrate Tablet (Lopressor Ta (04/07/25 22:00) (Nf) Atorvastatin Calcium (Lipitor) (04/07/25 18:00) (Nf) Dapagliflozin Propanediol (Farxiga) (04/08/25 10:00) (Nf) Donepezil Hydrochloride (Donepezil (04/07/25 17:30) (Nf) Lisinopril (04/08/25 10:00) Nifedipine Er (Procardia Xl (Time-Releas (04/08/25 10:00) Vital Signs Date Time Temp Pulse Resp B/P (MAP) Pulse Ox O2 Delivery O2 Flow Rate FiO2 04/07/25 10:00 98.4 74 29 165/73 (103) 100 98.4 04/07/25 07:52 76 04/07/25 07:16 97.2 88 31 177/77 (110) 100 97.2 04/07/25 07:15 69 18 98 Nasal Cannula* 2 28 04/07/25 06:51 79 04/07/25 06:50 98.3 90 28 186/101 98 98.3 04/07/25 06:45 79 Laboratory Tests Test 04/07/25 06:50 White Blood Count 14.8 10^3/uL (4.4-10.8) #H Medications Medications Dose Ordered Sig/Long Route Start Time Stop Time Status Last Admin Dose Admin Methylprednisolone Sodium Succinate 125 mg ONCE ONCE IV 04/07/25 06:45 04/07/25 06:46 DC 04/07/25 07:11 125 MG Assessment/Plan Assessment/Plan Assessment: Acute on chronic systolic heart failure, COPD exacerbation, Pressure ulcer, Elevated BNP, Hypertension, Diabetes, Hyperlipidemia, Plan: Admit to Tele, IV steroids, IV Lasix, IV antibiotics, Breathing treatments, Supplemental oxygen as needed, Wound care consult, Wound culture, Home medications reconciled, Plan discussed with: Patient My Orders Orders - BRIDGET ZAVALA GUIDE [employer]EIGN [employer]OUR Procedure Category Date Status Time Admit ADMIT 04/07/25 Transmitted 12:23 Code Status CODE 04/07/25 Transmitted 12:23 Sodium Chloride Lock PHA 04/07/25 Logged (Saline Lock Ns) 14:00 Hydrocodone-Acet PHA 04/07/25 Logged 5/325mg Tab ([place] 12:30 Ondansetron Hcl PHA 04/07/25 Logged (Zofran) 12:30 Docusate Sodium PHA 04/07/25 Transmitted Capsule (Colace 12:30 Fall Risk Precautions JOSUE 04/07/[address] 12:23 Complete Blood Count LAB 04/08/25 Verified 04:00 Comprehensive LAB 04/08/25 Verified Metabolic Panel 04:00 Cardiac DIET 04/07/25 Transmitted Diet-2gna,Lofat,Lochol Lunch Pt Request For Service PT 04/07/25 Logged 12:23 Condition: Serious JOSUE 04/07/25 In Process 12:23 Acetaminophen Tablet PHA 04/07/25 Transmitted (Tylenol Tablet) 12:30 Nitroglycerin PHA 04/07/25 Transmitted Sublingual (Ntrostat 12:30 Morphine Sulfate PHA 04/07/25 Transmitted Injection 12:30 Stat Ekg For Chest [facility] 04/07/25 In Process Pain 12:23 Notify Of Changes [facility] 04/07/25 In Process From Base 12:23 Mobile Crane Operator For [facility] 04/07/25 In Process 24 Hours 12:23 Emergency Dysrhythmia [facility] 04/07/25 In Process Protocol 12:23 Rhythm Strips Once [facility] 04/07/25 In Process Every Shift 12:23 Oxygen By Nasal RT 04/07/25 Transmitted Cannula 12:23 * Wound Consult CONS 04/07/25 Transmitted Wound Culture W/ Gs GIANNA 04/07/25 Logged 12:23 Furosemide Injection PHA 04/07/25 Transmitted (Lasix Injection) 12:30 Furosemide Injection PHA 04/08/25 Transmitted (Lasix Injection) 10:00 Methylprednisolone PHA 04/07/25 Transmitted Sod Succ (Solu Medrol 22:00 Ipratropium Medneb PHA 04/07/25 Transmitted (Atrovent Medneb) 18:00 Albuterol Medneb PHA 04/07/25 Transmitted (Ventolin Medneb) 18:00 Amiodarone Tablet PHA 04/08/25 Transmitted (Cordarone Tablet) 10:00 Metoprolol Tartrate PHA 04/07/25 Transmitted Tablet (Lopressor Ta 22:00 (Nf) Atorvastatin PHA 04/07/25 Transmitted Calcium (Lipitor) 18:00 (Nf) Dapagliflozin PHA 04/08/25 Logged Propanediol (Farxiga) 10:00 (Nf) Donepezil PHA 04/07/25 Transmitted Hydrochloride 17:30 (Nf) Lisinopril PHA 04/08/25 Logged 10:00 Nifedipine Er PHA 04/08/25 Verified (Procardia Xl 10:00 Date of Service: Apr 07, 2025 Billing Provider: BRIDGET ZAVALA Common Visit Codes: [id number] INP/OBS CARE (HIGH) BRIDGET ZAVALA Apr 07, 2025 12:47
[2025-04-07] MEDS: SODIUM CHLOR 0.9% PF (SALINE LOCK) 10ML VIAL/SYR IV SCH (14:05)
[2025-04-07] MEDS: DONEPEZIL HYDROCHLORIDE 5 MG TAB PO SCH (17:38)
[2025-04-07] MEDS: IPRATROPIUM BROM 0.5 MG/2.5ML INH SOL NEB SCH (19:05)
[2025-04-07] MEDS: ALBUTEROL SULF 2.5 MG/0.5ML(0.5%) NEB SOLN NEB SCH (19:06)
[2025-04-07] MEDS: methylPREDNISolone SOD SUCC 40 MG/ML VL IV SCH (23:57)
[2025-04-07] MEDS: METOPROLOL TARTRATE 25 MG TAB PO SCH (23:58)
[2025-04-07] MEDS: ATORVASTATIN 20 MG TAB PO SCH (23:58)
[2025-04-08] VITALS (14 sets, daily range): BP systolic 99–169; BP diastolic 46–84; PULSE 69–79; RESP 14–19; TEMP 97.9–98.7; O2SAT 91–100
[2025-04-08 05:39] LABS: Hematocrit 28.8 % (36.0-46.0); Hemoglobin 9.2 g/dL (12.2-16.2); Mean Corpuscular Hemoglobin 27.6 pg (28.0-32.0); Mean Corpuscular Volume 86.3 fL (80.0-100.0); Nucleated Red Blood Cells % 0.1 %
[2025-04-08 05:57] LABS: Alanine Aminotransferase 22 U/L (7-40); Alkaline Phosphatase 79 U/L (46-116); Anion Gap 12 (5-15); BUN/Creatinine Ratio 21.4 (10.0-20.0); Calcium 8.8 mg/dL (8.7-10.4); Carbon Dioxide 29 mmol/L (20-31); Chloride 100 mmol/L (98-107); Sodium 141 mmol/L (136-145); Total Protein 5.9 g/dL (5.7-8.2)
[2025-04-08 05:58] LABS: Albumin 3.5 g/dL (3.2-4.8); Bilirubin, Total 0.6 mg/dL (0.2-1.0); Blood Urea Nitrogen 24 mg/dL (9-23); Glucose 145 mg/dL (74-106); Potassium 3.4 mmol/L (3.5-5.1)
[2025-04-08] MEDS: AMIODARONE HCL 200 MG TAB PO SCH (09:03)
[2025-04-08] MEDS: LISINOPRIL 5 MG TAB PO SCH (09:04)
[2025-04-08] MEDS: FUROSEMIDE 20 MG/2 ML VIAL IV SCH (09:05)
[2025-04-08] MEDS ORDERED: DAPAGLIFLOZIN PROPANEDIOL 5 MG PO SCH (10:00)
[2025-04-08] MEDS: CLINDAMYCIN 300MG IV 50 ML IV ONE (10:35)
--- NOTE | 2025-04-08 11:37 | DVHPN2 ---
Progress Note Date Seen: Apr 08, 2025 Medical Necessity Reason Pt with a Central, PICC or Fol: No Subjective Patient reports: No new complaints Review of Systems: HEENT:Normal, CVS:Normal, RESPIRATORY:Normal, GI:Normal, :Normal, MSK:Normal, NEURO:Normal Objective vital signs Vital Sign Date Time Temp Pulse Resp B/P (MAP) Pulse Ox O2 Delivery O2 Flow Rate FiO2 04/08/25 11:09 75 18 99 04/08/25 11:03 Nasal Cannula 3.0 04/08/25 11:03 32 04/08/25 10:04 136/71 04/08/25 09:00 98.7 98.7 Total Intake and Output 04/07/25 04/07/25 04/08/25 15:00 23:00 07:00 Intake Total 350 ml Balance 350 ml medications Current Medications Medications Dose Ordered Sig/Long Route Start Time Stop Time Status Last Admin Dose Admin Sodium Chloride 10 ml Q8HR IV 04/07/25 14:00 04/08/25 06:00 10 ML Acetaminophen/ Hydrocodone Bitart 1 tab Q4HP PRN PO 04/07/25 12:30 Ondansetron HCl 4 mg Q4HP PRN IV 04/07/25 12:30 Docusate Sodium 100 mg BIDPRN PRN PO 04/07/25 12:30 Acetaminophen 650 mg Q6HP PRN PO 04/07/25 12:30 Nitroglycerin 0.4 mg Q5MINP PRN SL 04/07/25 12:30 Morphine Sulfate 2 mg Q30M PRN IV 04/07/25 12:30 Furosemide 20 mg DAILY IV 04/08/25 10:00 04/08/25 09:05 20 MG Methylprednisolone Sodium Succinate 40 mg BID IV 04/07/25 22:00 04/08/25 09:05 40 MG Ipratropium [place] 0.5 mg Q6HWA NEB 04/07/25 18:00 04/08/25 11:03 0.5 MG Albuterol 2.5 mg Q6HWA NEB 04/07/25 18:00 04/08/25 11:03 2.5 MG Amiodarone HCl 200 mg DAILY PO 04/08/25 10:00 04/08/25 09:03 200 MG Metoprolol Tartrate 12.5 mg BID PO 04/07/25 22:00 04/08/25 09:04 12.5 MG Atorvastatin Calcium 5 mg HS PO 04/07/25 22:00 04/07/25 23:58 5 MG Patient Own Medication 5 mg DAILY PO 04/08/25 10:00 Donepezil HCl 10 mg DAILY@DINNER PO 04/07/25 17:30 04/07/25 17:38 10 MG Lisinopril 10 mg DAILY PO 04/08/25 10:00 04/08/25 09:04 10 MG Nifedipine 30 mg DAILY PO 04/08/25 10:00 04/08/25 09:04 30 MG Clindamycin Phosphate 50 ml @ 50 mls/hr Q8HR IV 04/08/25 18:00 Examination: GENERAL:Normal, HEENT:Normal, NECK:Normal, LUNGS:Normal, LUNGS:Abnormal (on oxygen), CVS:Normal, ABDOMEN:Normal, MSK:Normal, SKIN:Normal, NEURO:Normal, :Normal laboratory and microbiology Laboratory Tests 04/08/25 05:08 Test 04/08/25 05:08 Range/Units Serum Glucose 145 H 74-106 mg/dL Problem List/Assessment/Plan Problem List/Assessment/Plan - acute on chronic HFpEF: iv lasix - Paroxysmal atrial fibrillation - hypertension ?urgency - Acute on chronic hypoxic and hypercapnic respiratory failure - Pulmonary hypertension - Chronic obstructive pulmonary disease exacerbation - Hypokalemia - normocytic, normochromic anemia - Diabetes mellitus type 2 HGB A1c 6% - Dyslipidemia advance care planning- full code- time spent 19 mins Plan discussed with: Patient My Orders My Orders Orders - LINDA FLORES MD Procedure Category Date Status Time Potassium Er Tablet PHA 04/08/25 Verified (Klor-Con Tablet) 11:45 Empagliflozin PHA 04/09/25 Verified (Jardiance) 10:00 Date of Service: Apr 08, 2025 Billing Provider: LINDA FLORES MD Common Visit Codes: [id number] INP/OBS CARE(HIGH) Secondary Visit Codes: [id number] CARE PLAN 30 MINUTES LINDA FLORES MD Apr 08, 2025 11:37
[2025-04-08] MEDS: POTASSIUM CHL 20 Meq TABLET PO ONE (12:07)
[2025-04-08] MEDS: EMPAGLIFLOZIN 10 MG TAB PO SCH (12:07)
[2025-04-08] MEDS ORDERED: CLINDAMYCIN 300MG IV 50 ML IV SCH (18:00)
[2025-04-09] VITALS (16 sets, daily range): BP systolic 102–137; BP diastolic 47–72; PULSE 20–76; RESP 16–18; TEMP 97.6–98.7; O2SAT 6–100
[2025-04-09 06:50] LABS: Anion Gap 11 (5-15); Carbon Dioxide 29 mmol/L (20-31); Chloride 100 mmol/L (98-107); Sodium 140 mmol/L (136-145)
[2025-04-09 06:53] LABS: Hematocrit 25.5 % (36.0-46.0); Hemoglobin 8.4 g/dL (12.2-16.2); Nucleated Red Blood Cells % 0.0 %
[2025-04-09 06:56] LABS: BUN/Creatinine Ratio 28.8 (10.0-20.0)
[2025-04-09 06:57] LABS: Magnesium 2.1 mg/dL (1.6-2.6)
[2025-04-09 06:58] LABS: Mean Corpuscular Hemoglobin 27.4 pg (28.0-32.0); Mean Corpuscular Volume 83.6 fL (80.0-100.0)
[2025-04-09 07:08] LABS: Blood Urea Nitrogen 36 mg/dL (9-23); Calcium 8.7 mg/dL (8.7-10.4); Glucose 274 mg/dL (74-106); Potassium 3.1 mmol/L (3.5-5.1)
--- NOTE | 2025-04-09 07:35 | DVHPN2 ---
Progress Note - Dictate Date Seen: Apr 08, 2025 Medical Necessity Reason Pt with a Central, PICC or Fol: No Subjective DILATED/ ISCHEMIC CM EFrEF ACUTE DECOMPENSATION S/P DUAL CHAMBER AICD S/P PTCA STENT DIAGONAL HX OF AFIB ACUTE RESP ARREST HYPOCAPNIA COPD DIABETES HTN CKD STAGE II HYPOKALEMIA ANEMIA ACCELERATED HTN vital signs Vital Sign Date Time Temp Pulse Resp B/P (MAP) Pulse Ox O2 Delivery O2 Flow Rate FiO2 04/09/25 05:14 97.9 72 16 114/47 (69) 94 97.9 04/08/25 20:00 Nasal Cannula* 2 28 Total Intake and Output 04/08/25 04/08/25 04/09/25 15:00 23:00 07:00 Intake Total 600 ml 600 ml Output Total 650 ml Balance -50 ml 600 ml medications Current Medications Medications Dose Ordered Sig/Long Route Start Time Stop Time Status Last Admin Dose Admin Sodium Chloride 10 ml Q8HR IV 04/07/25 14:00 04/09/25 06:23 10 ML Acetaminophen/ Hydrocodone Bitart 1 tab Q4HP PRN PO 04/07/25 12:30 Ondansetron HCl 4 mg Q4HP PRN IV 04/07/25 12:30 Docusate Sodium 100 mg BIDPRN PRN PO 04/07/25 12:30 Acetaminophen 650 mg Q6HP PRN PO 04/07/25 12:30 Nitroglycerin 0.4 mg Q5MINP PRN SL 04/07/25 12:30 Morphine Sulfate 2 mg Q30M PRN IV 04/07/25 12:30 Furosemide 20 mg DAILY IV 04/08/25 10:00 04/08/25 09:05 20 MG Ipratropium [place] 0.5 mg Q6HWA NEB 04/07/25 18:00 04/09/25 06:38 0.5 MG Albuterol 2.5 mg Q6HWA NEB 04/07/25 18:00 04/09/25 06:38 2.5 MG Amiodarone HCl 200 mg DAILY PO 04/08/25 10:00 04/08/25 09:03 200 MG Metoprolol Tartrate 12.5 mg BID PO 04/07/25 22:00 04/08/25 09:04 12.5 MG Atorvastatin Calcium 5 mg HS PO 04/07/25 22:00 04/08/25 21:34 5 MG Donepezil HCl 10 mg DAILY@DINNER PO 04/07/25 17:30 04/08/25 17:39 10 MG Lisinopril 10 mg DAILY PO 04/08/25 10:00 04/08/25 09:04 10 MG Nifedipine 30 mg DAILY PO 04/08/25 10:00 04/08/25 09:04 30 MG Empaglifozin 10 mg DAILY PO 04/08/25 11:56 04/08/25 12:07 10 MG laboratory and microbiology Laboratory Tests 04/09/25 05:24 Test 04/09/25 05:24 Range/Units Serum Glucose 274 H 74-106 mg/dL Problem List DILATED/ ISCHEMIC CM EFrEF ACUTE DECOMPENSATION S/P DUAL CHAMBER AICD S/P PTCA STENT DIAGONAL HX OF AFIB ACUTE RESP ARREST HYPOCAPNIA COPD DIABETES HTN CKD STAGE II HYPOKALEMIA ANEMIA ACCELERATED HTN Assessment/Plan TITRATE BP MEDS 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
--- NOTE | 2025-04-09 16:00 | DVHPN2 ---
Progress Note Date Seen: Apr 09, 2025 Medical Necessity Reason Pt with a Central, PICC or Fol: No Subjective Patient reports: No new complaints Review of Systems: HEENT:Normal, CVS:Normal, RESPIRATORY:Normal, GI:Normal, :Normal, MSK:Normal, NEURO:Normal Objective vital signs Vital Sign Date Time Temp Pulse Resp B/P (MAP) Pulse Ox O2 Delivery O2 Flow Rate FiO2 04/09/25 12:32 98.2 20 16 102/53 (69) 94 98.2 04/09/25 11:03 Nasal Cannula 2.0 04/09/25 11:03 28 Total Intake and Output 04/08/25 04/08/25 04/09/25 15:00 23:00 07:00 Intake Total 600 ml 600 ml Output Total 650 ml Balance -50 ml 600 ml medications Current Medications Medications Dose Ordered Sig/Long Route Start Time Stop Time Status Last Admin Dose Admin Sodium Chloride 10 ml Q8HR IV 04/07/25 14:00 04/09/25 06:23 10 ML Acetaminophen/ Hydrocodone Bitart 1 tab Q4HP PRN PO 04/07/25 12:30 Ondansetron HCl 4 mg Q4HP PRN IV 04/07/25 12:30 Docusate Sodium 100 mg BIDPRN PRN PO 04/07/25 12:30 Acetaminophen 650 mg Q6HP PRN PO 04/07/25 12:30 Nitroglycerin 0.4 mg Q5MINP PRN SL 04/07/25 12:30 Morphine Sulfate 2 mg Q30M PRN IV 04/07/25 12:30 Furosemide 20 mg DAILY IV 04/08/25 10:00 04/09/25 10:08 20 MG Ipratropium [place] 0.5 mg Q6HWA NEB 04/07/25 18:00 04/09/25 11:03 0.5 MG Albuterol 2.5 mg Q6HWA NEB 04/07/25 18:00 04/09/25 11:03 2.5 MG Amiodarone HCl 200 mg DAILY PO 04/08/25 10:00 04/09/25 10:09 200 MG Metoprolol Tartrate 12.5 mg BID PO 04/07/25 22:00 04/09/25 10:08 12.5 MG Atorvastatin Calcium 5 mg HS PO 04/07/25 22:00 04/08/25 21:34 5 MG Donepezil HCl 10 mg DAILY@DINNER PO 04/07/25 17:30 04/08/25 17:39 10 MG Lisinopril 10 mg DAILY PO 04/08/25 10:00 04/09/25 10:10 10 MG Nifedipine 30 mg DAILY PO 04/08/25 10:00 04/08/25 09:04 30 MG Empaglifozin 10 mg DAILY PO 04/08/25 11:56 04/09/25 10:09 10 MG Examination: GENERAL:Normal, HEENT:Normal, NECK:Normal, LUNGS:Normal, CVS:Normal, ABDOMEN:Normal, MSK:Normal, SKIN:Normal, NEURO:Normal, :Normal laboratory and microbiology Laboratory Tests 04/09/25 05:24 Test 04/09/25 05:24 Range/Units Serum Glucose 274 H 74-106 mg/dL Microbiology Date/Time Source Procedure Growth Status 04/08/25 18:00 Sacrum Gram Stain - Final Resulted 04/08/25 18:00 Sacrum Wound Culture - Preliminary Resulted Problem List/Assessment/Plan Problem List/Assessment/Plan - acute on chronic HFpEF: lasix - Paroxysmal atrial fibrillation - hypertension ?urgency - Acute on chronic hypoxic and hypercapnic respiratory failure - Pulmonary hypertension - Chronic obstructive pulmonary disease exacerbation - Hypokalemia - normocytic, normochromic anemia - Diabetes mellitus type 2 HGB A1c 6% - Dyslipidemia - uti: ?yeast: fluconazole, culture advance care planning- full code- time spent 19 mins Plan discussed with: Patient My Orders My Orders Orders - LINDA FLORES MD Procedure Category Date Status Time Order Specialty [facility] 04/08/25 In Process Mattress 16:43 Furosemide Tablet PHA 04/10/25 Verified (Lasix Tablet) 10:00 Potassium Er Tablet PHA 04/09/25 Verified (Klor-Con Tablet) 16:00 Urine Bacterial GIANNA 04/09/25 Verified Culture 15:54 Fluconazole Tablet PHA 04/10/25 Verified (Diflucan Tablet) 10:00 Fluconazole Tablet PHA 04/09/25 Verified (Diflucan Tablet) 16:00 Basic Metabolic Panel LAB 04/10/25 Verified 06:00 Dietary Evaluation Review Recommendations by RD: Increase Calorie Intake, Protein Supplementation Comments: Patient is underweight with elevated POC glucose, A1C. and iron deficiency Recommend Glucerna BID supplementation. Consider iron supplementation Expected Outcomes/Goals: Improved skin, muscle tone, improved strength. wt gain, healed wounds Body Fat Depletion (Severe): Mod to Severe Depletion Muscle Mass (Severe): Mod to Severe Depletion Date of Service: Apr 09, 2025 Billing Provider: LINDA FLORES MD Common Visit Codes: [id number] INP/OBS CARE(HIGH) LNIDA FLORES MD Apr 09, 2025 16:00
[2025-04-09] MEDS: POTASSIUM CHL 20 Meq TABLET PO ONE (16:40)
[2025-04-09] MEDS: FLUCONAZOLE 100 MG TAB PO ONE (16:41)
[2025-04-09] MEDS: Juven Fruit Punch Powder PACKET 28.8gm PO SCH (18:07)
[2025-04-09] MEDS: Ensure HIGH Protein Chocolate 8oz Bottle PO SCH (18:07)
[2025-04-10] VITALS (17 sets, daily range): BP systolic 116–165; BP diastolic 72–88; PULSE 66–97; RESP 16–20; TEMP 97.6–98.4; O2SAT 90–100
[2025-04-10 07:39] LABS: Anion Gap 10 (5-15); Calcium 9.0 mg/dL (8.7-10.4); Carbon Dioxide 30 mmol/L (20-31); Chloride 101 mmol/L (98-107); Potassium 3.9 mmol/L (3.5-5.1); Sodium 141 mmol/L (136-145)
[2025-04-10 07:45] LABS: BUN/Creatinine Ratio 27.6 (10.0-20.0)
[2025-04-10 07:46] LABS: Blood Urea Nitrogen 32 mg/dL (9-23); Glucose 209 mg/dL (74-106)
[2025-04-10] MEDS: FLUCONAZOLE 100 MG TAB PO SCH (08:49)
[2025-04-10] MEDS: FUROSEMIDE 40 MG TAB PO SCH (08:49)
--- NOTE | 2025-04-10 10:12 | DVHPN2 ---
Reviewed: Care Plan, H&P, Labs, Medications, Previous Orders, Radiology Changes from previous H/P or p: No Changes Eyes: No Pain, No Vision change, No Conjunctivae inflammation, No Eyelid inflammation, No Other, No Redness ENT: No Ear pain, No Ear discharge, No Nose pain, No Nose discharge, No Nose congestion, No Mouth pain, No Mouth swelling, No Throat pain, No Throat swelling, No Other Cardiovascular: No Chest Pain, No Palpitations, No Orthopnea, No Paroxysmal Noc. Dyspnea, No Edema, No Lt Headedness, No Other Respiratory: No Cough, No Dry; Shortness of breath, SOB with excertion, W heezing; No Hemoptysis, No Pleuritic Pain, No Sputum, No Other Gastrointestinal: No Nausea, No Vomiting, No Abdominal Pain, No Diarrhea, No Constipation, No Melena, No Hematochezia, No Other Genitourinary: No Dysuria, No Frequency, No Incontinence, No Hematuria, No Retention, No Other Musculoskeletal: No other, No neck pain, No shoulder pain, No arm pain, No back pain, No hand pain, No leg pain, No foot pain Skin: No Rash, No Lesions, No Jaundice, No Bruising, No Other Objective Vitals Vital Signs Date Time Temp Pulse Resp B/P (MAP) Pulse Ox O2 Delivery O2 Flow Rate FiO2 04/10/25 08:50 73 154/84 04/10/25 06:27 17 99 04/10/25 06:21 Nasal Cannula 2.0 04/10/25 06:21 28 04/10/25 05:00 97.9 97.9 Intake/Output Intake and Output 04/10/25 07:00 Intake Total 1210 ml Output Total 600 ml Balance 610 ml Intake Oral 1210 ml Output Urine Total 600 ml # Voids 3 # Bowel Movements 2 Medications Current Medications Medications Dose Ordered Sig/Long Route Start Time Stop Time Status Last Admin Dose Admin Sodium Chloride 10 ml Q8HR IV 04/07/25 14:00 04/09/25 22:00 10 ML Acetaminophen/ Hydrocodone Bitart 1 tab Q4HP PRN PO 04/07/25 12:30 Ondansetron HCl 4 mg Q4HP PRN IV 04/07/25 12:30 Docusate Sodium 100 mg BIDPRN PRN PO 04/07/25 12:30 Acetaminophen 650 mg Q6HP PRN PO 04/07/25 12:30 Nitroglycerin 0.4 mg Q5MINP PRN SL 04/07/25 12:30 Morphine Sulfate 2 mg Q30M PRN IV 04/07/25 12:30 Ipratropium [place] 0.5 mg Q6HWA NEB 04/07/25 18:00 04/10/25 06:21 0.5 MG Albuterol 2.5 mg Q6HWA NEB 04/07/25 18:00 04/10/25 06:21 2.5 MG Amiodarone HCl 200 mg DAILY PO 04/08/25 10:00 04/10/25 08:49 200 MG Metoprolol Tartrate 12.5 mg BID PO 04/07/25 22:00 04/10/25 08:50 12.5 MG Atorvastatin Calcium 5 mg HS PO 04/07/25 22:00 04/09/25 22:44 5 MG Donepezil HCl 10 mg DAILY@DINNER PO 04/07/25 17:30 04/09/25 16:40 10 MG Lisinopril 10 mg DAILY PO 04/08/25 10:00 04/10/25 08:49 10 MG Empaglifozin 10 mg DAILY PO 04/08/25 11:56 04/10/25 08:50 10 MG Furosemide 40 mg DAILY PO 04/10/25 10:00 04/10/25 08:49 40 MG Fluconazole 200 mg DAILY PO 04/10/25 10:00 04/10/25 08:49 200 MG Enteral Nutritional Formula 28.8 gm BIDWM PO 04/09/25 18:00 04/10/25 08:00 28.8 GM Enteral Nutritional Formula 240 ml BIDWM PO 04/09/25 18:00 04/10/25 08:00 240 ML Laboratory Results Laboratory Tests 04/09/25 05:24 04/10/25 05:35 Chemistry Test 04/10/25 05:35 Calcium Level 9.0 mg/dL (8.7-10.4) Urinalysis Test 04/07/25 10:03 Urine Color Light-yellow (Yellow) Urine Clarity Clear (Clear) Urine pH 7.0 (5.0-9.0) Urine Specific [place] 1.022 (1.001-1.035) Urine Protein Trace (Negative) H Urine Ketones Negative (Negative) Urine Blood Negative /uL (Negative) Urine Nitrite Negative (Negative) Urine Bilirubin Negative (Negative) Urine Urobilinogen Normal mg/dL (Negative) Urine Leukocyte Esterase 1+ /uL (Negative) Urine RBC 12 /hpf (0 - 4) Urine Microscopic WBC 25 /HPF (0-5) H Urine Squamous Epithelial Cells Few /hpf (<5) Urine Bacteria None seen /hpf (None Seen) Urine Yeast (Budding) Moderate /hpf (None Seen) Urine Glucose 4+ mg/dL (Normal) H Microbiology Microbiology Date/Time Source Procedure Growth Status 04/08/25 18:00 Sacrum Gram Stain - Final Resulted 04/08/25 18:00 Sacrum Wound Culture - Preliminary Resulted Labs and/or images reviewed: Labs reviewed by me, Image(s) reviewed by me Assessment/Plan Assessment/Plan Covering for Dr. Aguilar -acute exacerbation of chronic systolic congestive heart failure: lasix Jardiance lisinopril - Paroxysmal atrial fibrillation - hypertensive urgency - Acute on chronic hypoxic and hypercapnic respiratory failure Lasix Jardiance lisinopril - Pulmonary hypertension - Chronic obstructive pulmonary disease exacerbation - Hypokalemia - normocytic, normochromic anemia - Diabetes mellitus type 2 HGB A1c 6% - Dyslipidemia - yeast in the urine: Fluconazole Time Spent 45 minutes Plan discussed with: Patient Date of Service: Apr 10, 2025 Billing Provider: RADHA WILHELM MD Common Visit Codes: [id number] INP/OBS CARE(HIGH) RADHA WILHELM MD Apr 10, 2025 10:11
[2025-04-11] VITALS (14 sets, daily range): BP systolic 108–161; BP diastolic 63–88; PULSE 66–78; RESP 16–18; TEMP 97.7–98.5; O2SAT 94–100
--- NOTE | 2025-04-11 09:45 | DVHPN2 ---
Reviewed: Care Plan, H&P, Labs, Medications, Previous Orders, Radiology Changes from previous H/P or p: No Changes Eyes: No Pain, No Vision change, No Conjunctivae inflammation, No Eyelid inflammation, No Other, No Redness ENT: No Ear pain, No Ear discharge, No Nose pain, No Nose discharge, No Nose congestion, No Mouth pain, No Mouth swelling, No Throat pain, No Throat swelling, No Other Cardiovascular: No Chest Pain, No Palpitations, No Orthopnea, No Paroxysmal Noc. Dyspnea, No Edema, No Lt Headedness, No Other Respiratory: No Cough, No Dry; Shortness of breath, SOB with excertion, W heezing; No Hemoptysis, No Pleuritic Pain, No Sputum, No Other Gastrointestinal: No Nausea, No Vomiting, No Abdominal Pain, No Diarrhea, No Constipation, No Melena, No Hematochezia, No Other Genitourinary: No Dysuria, No Frequency, No Incontinence, No Hematuria, No Retention, No Other Musculoskeletal: No other, No neck pain, No shoulder pain, No arm pain, No back pain, No hand pain, No leg pain, No foot pain Skin: No Rash, No Lesions, No Jaundice, No Bruising, No Other Objective Vitals Vital Signs Date Time Temp Pulse Resp B/P (MAP) Pulse Ox O2 Delivery O2 Flow Rate FiO2 04/11/25 09:10 157/78 04/11/25 09:10 70 04/11/25 08:56 97.7 18 97 97.7 04/11/25 06:11 Nasal Cannula* 2 28 Intake/Output Intake and Output 04/11/25 07:00 Intake Total 1290 ml Output Total 4250 ml Balance -2960 ml Intake Oral 1290 ml Output Urine Total 4250 ml # Voids 1 # Bowel Movements 2 Medications Current Medications Medications Dose Ordered Sig/Long Route Start Time Stop Time Status Last Admin Dose Admin Sodium Chloride 10 ml Q8HR IV 04/07/25 14:00 04/11/25 05:30 10 ML Acetaminophen/ Hydrocodone Bitart 1 tab Q4HP PRN PO 04/07/25 12:30 Ondansetron HCl 4 mg Q4HP PRN IV 04/07/25 12:30 Docusate Sodium 100 mg BIDPRN PRN PO 04/07/25 12:30 Acetaminophen 650 mg Q6HP PRN PO 04/07/25 12:30 Nitroglycerin 0.4 mg Q5MINP PRN SL 04/07/25 12:30 Morphine Sulfate 2 mg Q30M PRN IV 04/07/25 12:30 Ipratropium [place] 0.5 mg Q6HWA NEB 04/07/25 18:00 04/11/25 06:11 0.5 MG Albuterol 2.5 mg Q6HWA NEB 04/07/25 18:00 04/11/25 06:11 2.5 MG Amiodarone HCl 200 mg DAILY PO 04/08/25 10:00 04/11/25 09:10 200 MG Metoprolol Tartrate 12.5 mg BID PO 04/07/25 22:00 04/11/25 09:10 12.5 MG Atorvastatin Calcium 5 mg HS PO 04/07/25 22:00 04/10/25 21:21 5 MG Donepezil HCl 10 mg DAILY@DINNER PO 04/07/25 17:30 04/10/25 17:17 10 MG Lisinopril 10 mg DAILY PO 04/08/25 10:00 04/11/25 09:10 10 MG Empaglifozin 10 mg DAILY PO 04/08/25 11:56 04/11/25 09:10 10 MG Furosemide 40 mg DAILY PO 04/10/25 10:00 04/11/25 09:10 40 MG Fluconazole 200 mg DAILY PO 04/10/25 10:00 04/11/25 09:09 200 MG Enteral Nutritional Formula 28.8 gm BIDWM PO 04/09/25 18:00 04/11/25 08:15 28.8 GM Enteral Nutritional Formula 240 ml BIDWM PO 04/09/25 18:00 04/11/25 08:15 240 ML Laboratory Results Laboratory Tests 04/09/25 05:24 04/10/25 05:35 Urinalysis Test 04/07/25 10:03 Urine Color Light-yellow (Yellow) Urine Clarity Clear (Clear) Urine pH 7.0 (5.0-9.0) Urine Specific [place] 1.022 (1.001-1.035) Urine Protein Trace (Negative) H Urine Ketones Negative (Negative) Urine Blood Negative /uL (Negative) Urine Nitrite Negative (Negative) Urine Bilirubin Negative (Negative) Urine Urobilinogen Normal mg/dL (Negative) Urine Leukocyte Esterase 1+ /uL (Negative) Urine RBC 12 /hpf (0 - 4) Urine Microscopic WBC 25 /HPF (0-5) H Urine Squamous Epithelial Cells Few /hpf (<5) Urine Bacteria None seen /hpf (None Seen) Urine Yeast (Budding) Moderate /hpf (None Seen) Urine Glucose 4+ mg/dL (Normal) H Microbiology Microbiology Date/Time Source Procedure Growth Status 04/08/25 18:00 Sacrum Gram Stain - Final Resulted 04/08/25 18:00 Wound Culture - Preliminary Presumptive [place] albicans Resulted Labs and/or images reviewed: Labs reviewed by me, Image(s) reviewed by me Assessment/Plan Assessment/Plan Covering for Dr. Aguilar -acute exacerbation of chronic systolic congestive heart failure: lasix Jardiance lisinopril - Paroxysmal atrial fibrillation - hypertensive urgency - Acute on chronic hypoxic and hypercapnic respiratory failure Lasix Jardiance lisinopril - Pulmonary hypertension - Chronic obstructive pulmonary disease exacerbation - Hypokalemia - normocytic, normochromic anemia - Diabetes mellitus type 2 HGB A1c 6% - Dyslipidemia - yeast in the urine: Continue Fluconazole Time Spent 50 minutes Plan discussed with: Patient Date of Service: Apr 11, 2025 Billing Provider: RADHA WILHELM MD Common Visit Codes: [id number] INP/OBS CARE(HIGH) RADHA WILHELM MD Apr 11, 2025 09:45
[2025-04-12] VITALS (12 sets, daily range): BP systolic 116–136; BP diastolic 66–84; PULSE 70–87; RESP 16–18; TEMP 97.7–98.8; O2SAT 96–100
--- NOTE | 2025-04-12 10:45 | DVHPN2 ---
Reviewed: Care Plan, H&P, Labs, Medications, Previous Orders, Radiology Changes from previous H/P or p: No Changes Eyes: No Pain, No Vision change, No Conjunctivae inflammation, No Eyelid inflammation, No Other, No Redness ENT: No Ear pain, No Ear discharge, No Nose pain, No Nose discharge, No Nose congestion, No Mouth pain, No Mouth swelling, No Throat pain, No Throat swelling, No Other Cardiovascular: No Chest Pain, No Palpitations, No Orthopnea, No Paroxysmal Noc. Dyspnea, No Edema, No Lt Headedness, No Other Respiratory: No Cough, No Dry; Shortness of breath, SOB with excertion, W heezing; No Hemoptysis, No Pleuritic Pain, No Sputum, No Other Gastrointestinal: No Nausea, No Vomiting, No Abdominal Pain, No Diarrhea, No Constipation, No Melena, No Hematochezia, No Other Genitourinary: No Dysuria, No Frequency, No Incontinence, No Hematuria, No Retention, No Other Musculoskeletal: No other, No neck pain, No shoulder pain, No arm pain, No back pain, No hand pain, No leg pain, No foot pain Skin: No Rash, No Lesions, No Jaundice, No Bruising, No Other Objective Vitals Vital Signs Date Time Temp Pulse Resp B/P (MAP) Pulse Ox O2 Delivery O2 Flow Rate FiO2 04/12/25 09:24 136/67 04/12/25 09:24 72 04/12/25 08:58 98.0 18 97 98.0 04/12/25 08:00 Nasal Cannula* 2 28 Intake/Output Intake and Output 04/12/25 07:00 Intake Total 1220 ml Balance 1220 ml Intake Oral 1220 ml # Voids 6 # Bowel Movements 2 Medications Current Medications Medications Dose Ordered Sig/Long Route Start Time Stop Time Status Last Admin Dose Admin Sodium Chloride 10 ml Q8HR IV 04/07/25 14:00 04/12/25 06:15 10 ML Acetaminophen/ Hydrocodone Bitart 1 tab Q4HP PRN PO 04/07/25 12:30 Ondansetron HCl 4 mg Q4HP PRN IV 04/07/25 12:30 Docusate Sodium 100 mg BIDPRN PRN PO 04/07/25 12:30 Acetaminophen 650 mg Q6HP PRN PO 04/07/25 12:30 Nitroglycerin 0.4 mg Q5MINP PRN SL 04/07/25 12:30 Morphine Sulfate 2 mg Q30M PRN IV 04/07/25 12:30 Ipratropium [place] 0.5 mg Q6HWA NEB 04/07/25 18:00 04/12/25 06:53 0.5 MG Albuterol 2.5 mg Q6HWA NEB 04/07/25 18:00 04/12/25 06:53 2.5 MG Amiodarone HCl 200 mg DAILY PO 04/08/25 10:00 04/12/25 09:23 200 MG Metoprolol Tartrate 12.5 mg BID PO 04/07/25 22:00 04/12/25 09:24 12.5 MG Atorvastatin Calcium 5 mg HS PO 04/07/25 22:00 04/11/25 21:24 5 MG Donepezil HCl 10 mg DAILY@DINNER PO 04/07/25 17:30 04/11/25 17:31 10 MG Lisinopril 10 mg DAILY PO 04/08/25 10:00 04/12/25 09:23 10 MG Empaglifozin 10 mg DAILY PO 04/08/25 11:56 04/12/25 09:24 10 MG Furosemide 40 mg DAILY PO 04/10/25 10:00 04/12/25 09:24 40 MG Fluconazole 200 mg DAILY PO 04/10/25 10:00 04/12/25 09:23 200 MG Enteral Nutritional Formula 28.8 gm BIDWM PO 04/09/25 18:00 04/12/25 07:36 28.8 GM Enteral Nutritional Formula 240 ml BIDWM PO 04/09/25 18:00 04/12/25 07:36 240 ML Laboratory Results Laboratory Tests 04/09/25 05:24 04/10/25 05:35 Urinalysis Test 04/07/25 10:03 Urine Color Light-yellow (Yellow) Urine Clarity Clear (Clear) Urine pH 7.0 (5.0-9.0) Urine Specific [place] 1.022 (1.001-1.035) Urine Protein Trace (Negative) H Urine Ketones Negative (Negative) Urine Blood Negative /uL (Negative) Urine Nitrite Negative (Negative) Urine Bilirubin Negative (Negative) Urine Urobilinogen Normal mg/dL (Negative) Urine Leukocyte Esterase 1+ /uL (Negative) Urine RBC 12 /hpf (0 - 4) Urine Microscopic WBC 25 /HPF (0-5) H Urine Squamous Epithelial Cells Few /hpf (<5) Urine Bacteria None seen /hpf (None Seen) Urine Yeast (Budding) Moderate /hpf (None Seen) Urine Glucose 4+ mg/dL (Normal) H Microbiology Microbiology Date/Time Source Procedure Growth Status 04/10/25 09:21 Voided Urine Urine Culture - Final Complete 04/08/25 18:00 Sacrum Gram Stain - Final Resulted 04/08/25 18:00 Wound Culture - Preliminary Presumptive [place] albicans Resulted Labs and/or images reviewed: Labs reviewed by me, Image(s) reviewed by me Assessment/Plan Assessment/Plan Covering for Dr. Aguilar -acute exacerbation of chronic systolic congestive heart failure: lasix Jardiance lisinopril - Paroxysmal atrial fibrillation - hypertensive urgency - Acute on chronic hypoxic and hypercapnic respiratory failure Lasix Jardiance lisinopril - Pulmonary hypertension - Chronic obstructive pulmonary disease exacerbation - Hypokalemia - normocytic, normochromic anemia - Diabetes mellitus type 2 HGB A1c 6% - Dyslipidemia - yeast in the urine: Continue Fluconazole Time Spent 52 minutes Plan discussed with: Patient Date of Service: Apr 12, 2025 Billing Provider: RADHA WILHELM MD Common Visit Codes: [id number] INP/OBS CARE(HIGH) RADHA WILHELM MD Apr 12, 2025 10:45
[2025-04-13] VITALS (12 sets, daily range): BP systolic 120–148; BP diastolic 64–87; PULSE 69–103; RESP 12–18; TEMP 97.8–98.6; O2SAT 96–100
[2025-04-13 06:53] LABS: Hematocrit 30.2 % (36.0-46.0); Hemoglobin 9.8 g/dL (12.2-16.2); Mean Corpuscular Hemoglobin 27.9 pg (28.0-32.0); Mean Corpuscular Volume 86.2 fL (80.0-100.0); Nucleated Red Blood Cells % 0.0 %
[2025-04-13 06:55] LABS: Alanine Aminotransferase 27 U/L (7-40); Albumin 3.3 g/dL (3.2-4.8); Alkaline Phosphatase 113 U/L (46-116); Anion Gap 7 (5-15); BUN/Creatinine Ratio 23.9 (10.0-20.0); Bilirubin, Total 0.4 mg/dL (0.2-1.0); Carbon Dioxide 30 mmol/L (20-31); Chloride 101 mmol/L (98-107); Potassium 4.2 mmol/L (3.5-5.1); Sodium 138 mmol/L (136-145)
[2025-04-13 07:07] LABS: Blood Urea Nitrogen 37 mg/dL (9-23); Calcium 8.7 mg/dL (8.7-10.4); Glucose 252 mg/dL (74-106); Total Protein 5.7 g/dL (5.7-8.2)
--- NOTE | 2025-04-13 11:21 | DVHPN2 ---
Progress Note - Dictate Date Seen: Apr 10, 2025 Medical Necessity Reason Pt with a Central, PICC or Fol: No Subjective DILATED/ ISCHEMIC CM EFrEF ACUTE DECOMPENSATION S/P DUAL CHAMBER AICD S/P PTCA STENT DIAGONAL HX OF AFIB ACUTE RESP ARREST HYPOCAPNIA COPD DIABETES HTN CKD STAGE II HYPOKALEMIA ANEMIA ACCELERATED HTN vital signs Vital Sign Date Time Temp Pulse Resp B/P (MAP) Pulse Ox O2 Delivery O2 Flow Rate FiO2 04/13/25 09:03 138/70 04/13/25 09:03 73 04/13/25 09:00 97.9 16 98 97.9 04/13/25 06:21 Nasal Cannula 2.0 04/13/25 06:21 28 Total Intake and Output 04/12/25 04/12/25 04/13/25 15:00 23:00 07:00 Intake Total 500 ml 600 ml Balance 500 ml 600 ml medications Current Medications Medications Dose Ordered Sig/Long Route Start Time Stop Time Status Last Admin Dose Admin Sodium Chloride 10 ml Q8HR IV 04/07/25 14:00 04/13/25 05:54 10 ML Acetaminophen/ Hydrocodone Bitart 1 tab Q4HP PRN PO 04/07/25 12:30 Ondansetron HCl 4 mg Q4HP PRN IV 04/07/25 12:30 Docusate Sodium 100 mg BIDPRN PRN PO 04/07/25 12:30 Acetaminophen 650 mg Q6HP PRN PO 04/07/25 12:30 Nitroglycerin 0.4 mg Q5MINP PRN SL 04/07/25 12:30 Morphine Sulfate 2 mg Q30M PRN IV 04/07/25 12:30 Ipratropium [place] 0.5 mg Q6HWA NEB 04/07/25 18:00 04/13/25 06:19 0.5 MG Albuterol 2.5 mg Q6HWA NEB 04/07/25 18:00 04/13/25 06:19 2.5 MG Amiodarone HCl 200 mg DAILY PO 04/08/25 10:00 04/13/25 08:59 200 MG Metoprolol Tartrate 12.5 mg BID PO 04/07/25 22:00 04/13/25 09:03 12.5 MG Atorvastatin Calcium 5 mg HS PO 04/07/25 22:00 04/12/25 21:42 5 MG Donepezil HCl 10 mg DAILY@DINNER PO 04/07/25 17:30 04/12/25 17:42 10 MG Lisinopril 10 mg DAILY PO 04/08/25 10:00 04/13/25 09:02 10 MG Empaglifozin 10 mg DAILY PO 04/08/25 11:56 04/13/25 09:03 10 MG Furosemide 40 mg DAILY PO 04/10/25 10:00 04/13/25 09:03 40 MG Fluconazole 200 mg DAILY PO 04/10/25 10:00 04/13/25 09:01 200 MG Enteral Nutritional Formula 28.8 gm BIDWM PO 04/09/25 18:00 04/13/25 08:00 28.8 GM Enteral Nutritional Formula 240 ml BIDWM PO 04/09/25 18:00 04/13/25 08:00 240 ML laboratory and microbiology Laboratory Tests 04/13/25 05:42 Test 04/13/25 05:42 Range/Units Serum Glucose 252 H 74-106 mg/dL Problem List DILATED/ ISCHEMIC CM EFrEF ACUTE DECOMPENSATION S/P DUAL CHAMBER AICD S/P PTCA STENT DIAGONAL HX OF AFIB ACUTE RESP ARREST HYPOCAPNIA COPD DIABETES HTN CKD STAGE II HYPOKALEMIA ANEMIA ACCELERATED HTN Assessment/Plan TITRATE BP MEDS PT IS A CO2 RETAINER SO AVOID EXCESSIVE O2 THERAPY ADD METOLAZONE 2 X WEEK FOLLOWUP ON SUNDAY Dietary Evaluation Review Recommendations by RD: Increase Calorie Intake, Protein Supplementation Comments: Patient is underweight with elevated POC glucose, A1C. and iron deficiency Recommend Glucerna BID supplementation. Consider iron supplementation Expected Outcomes/Goals: Improved skin, muscle tone, improved strength. wt gain, healed wounds Body Fat Depletion (Severe): Mod to Severe Depletion Muscle Mass (Severe): Mod to Severe Depletion Plan discussed with: Patient Critical Care Time(min): 35 WILEY SALINAS MD Apr 13, 2025 11:21
--- NOTE | 2025-04-13 11:22 | DVHPN2 ---
Progress Note - Dictate Date Seen: Apr 13, 2025 Medical Necessity Reason Pt with a Central, PICC or Fol: No Subjective DILATED/ ISCHEMIC CM EFrEF ACUTE DECOMPENSATION S/P DUAL CHAMBER AICD S/P PTCA STENT DIAGONAL HX OF AFIB ACUTE RESP ARREST HYPOCAPNIA COPD DIABETES HTN CKD STAGE II HYPOKALEMIA ANEMIA ACCELERATED HTN vital signs Vital Sign Date Time Temp Pulse Resp B/P (MAP) Pulse Ox O2 Delivery O2 Flow Rate FiO2 04/13/25 09:03 138/70 04/13/25 09:03 73 04/13/25 09:00 97.9 16 98 97.9 04/13/25 06:21 Nasal Cannula 2.0 04/13/25 06:21 28 Total Intake and Output 04/12/25 04/12/25 04/13/25 15:00 23:00 07:00 Intake Total 500 ml 600 ml Balance 500 ml 600 ml medications Current Medications Medications Dose Ordered Sig/Long Route Start Time Stop Time Status Last Admin Dose Admin Sodium Chloride 10 ml Q8HR IV 04/07/25 14:00 04/13/25 05:54 10 ML Acetaminophen/ Hydrocodone Bitart 1 tab Q4HP PRN PO 04/07/25 12:30 Ondansetron HCl 4 mg Q4HP PRN IV 04/07/25 12:30 Docusate Sodium 100 mg BIDPRN PRN PO 04/07/25 12:30 Acetaminophen 650 mg Q6HP PRN PO 04/07/25 12:30 Nitroglycerin 0.4 mg Q5MINP PRN SL 04/07/25 12:30 Morphine Sulfate 2 mg Q30M PRN IV 04/07/25 12:30 Ipratropium [place] 0.5 mg Q6HWA NEB 04/07/25 18:00 04/13/25 06:19 0.5 MG Albuterol 2.5 mg Q6HWA NEB 04/07/25 18:00 04/13/25 06:19 2.5 MG Amiodarone HCl 200 mg DAILY PO 04/08/25 10:00 04/13/25 08:59 200 MG Metoprolol Tartrate 12.5 mg BID PO 04/07/25 22:00 04/13/25 09:03 12.5 MG Atorvastatin Calcium 5 mg HS PO 04/07/25 22:00 04/12/25 21:42 5 MG Donepezil HCl 10 mg DAILY@DINNER PO 04/07/25 17:30 04/12/25 17:42 10 MG Lisinopril 10 mg DAILY PO 04/08/25 10:00 04/13/25 09:02 10 MG Empaglifozin 10 mg DAILY PO 04/08/25 11:56 04/13/25 09:03 10 MG Furosemide 40 mg DAILY PO 04/10/25 10:00 04/13/25 09:03 40 MG Fluconazole 200 mg DAILY PO 04/10/25 10:00 04/13/25 09:01 200 MG Enteral Nutritional Formula 28.8 gm BIDWM PO 04/09/25 18:00 04/13/25 08:00 28.8 GM Enteral Nutritional Formula 240 ml BIDWM PO 04/09/25 18:00 04/13/25 08:00 240 ML laboratory and microbiology Laboratory Tests 04/13/25 05:42 Test 04/13/25 05:42 Range/Units Serum Glucose 252 H 74-106 mg/dL Problem List DILATED/ ISCHEMIC CM EFrEF ACUTE DECOMPENSATION S/P DUAL CHAMBER AICD S/P PTCA STENT DIAGONAL HX OF AFIB ACUTE RESP ARREST HYPOCAPNIA COPD DIABETES HTN CKD STAGE II HYPOKALEMIA ANEMIA ACCELERATED HTN Assessment/Plan TITRATE BP MEDS PT IS A CO2 RETAINER SO AVOID EXCESSIVE O2 THERAPY ADD METOLAZONE 2 X WEEK FOLLOWUP ON SUNDAY DC HOME Dietary Evaluation Review Recommendations by RD: Increase Calorie Intake, Protein Supplementation Comments: Patient is underweight with elevated POC glucose, A1C. and iron deficiency Recommend Glucerna BID supplementation. Consider iron supplementation Expected Outcomes/Goals: Improved skin, muscle tone, improved strength. wt gain, healed wounds Body Fat Depletion (Severe): Mod to Severe Depletion Muscle Mass (Severe): Mod to Severe Depletion Plan discussed with: Patient WILEY SALINAS MD Apr 13, 2025 11:22
--- NOTE | 2025-04-13 12:13 | DVHDS2 ---
Discharge Summary Date of Admission Apr 07, 2025 at 12:23 Date of Discharge: Apr 13, 2025 Labs/Diagnostic Data: Laboratory Results Test 04/13/25 05:42 04/10/25 15:34 04/09/25 05:24 04/07/25 10:03 White Blood Count 10.8 10^3/uL (4.4-10.8) Red Blood Count 3.50 10^6/uL (4.0-5.20) Hemoglobin 9.8 g/dL (12.2-16.2) Hematocrit 30.2 % (36.0-46.0) Mean Corpuscular Volume 86.2 fL (80.0-100.0) Mean Corpuscular Hemoglobin 27.9 pg (28.0-32.0) Mean Corpuscular Hemoglobin Concent 32.3 g/dL (32.0-36.0) Red Cell Distribution Width 19.8 % (11.8-14.3) Platelet Count 325 10^3/uL (140-450) Mean Platelet Volume 7.6 fL (6.9-10.8) Neutrophils (%) (Auto) 80.2 % (37.0-80.0) Lymphocytes (%) (Auto) 8.1 % (10.0-50.0) Monocytes (%) (Auto) 9.7 % (0.0-12.0) Eosinophils (%) (Auto) 1.8 % (0.0-7.0) Basophils (%) (Auto) 0.2 % (0.0-2.0) Neutrophils # (Auto) 8.7 10 ^3/uL (1.6-8.6) Lymphocytes # (Auto) 0.9 10 ^3/uL (0.4-5.4) Monocytes # (Auto) 1.1 10 ^3/uL (0-1.3) Eosinophils # (Auto) 0.2 10 ^3/uL (0-0.8) Basophils # (Auto) 0 10 ^3/uL (0-0.2) Nucleated Red Blood Cells 0.0 % Sodium Level 138 mmol/L (136-145) Potassium Level 4.2 mmol/L (3.5-5.1) Chloride Level 101 mmol/L (98-107) Carbon Dioxide Level 30 mmol/L (20-31) Anion Gap 7 (5-15) Blood Urea Nitrogen 37 mg/dL (9-23) Creatinine 1.55 mg/dL (0.550-1.02) Glomerular Filtration Rate Calc 33 mL/min (>90) BUN/Creatinine Ratio 23.9 (10.0-20.0) Serum Glucose 252 mg/dL (74-106) Calcium Level 8.7 mg/dL (8.7-10.4) Total Bilirubin 0.4 mg/dL (0.2-1.0) Aspartate Amino Transferase (AST) 25 U/L (13-40) Alanine Aminotransferase (ALT) 27 U/L (7-40) Alkaline Phosphatase 113 U/L (46-116) Total Protein 5.7 g/dL (5.7-8.2) Albumin 3.3 g/dL (3.2-4.8) POC Glucose 219 mg/dl (70-106) Magnesium Level 2.1 mg/dL (1.6-2.6) Urine Color Light-yellow (Yellow) Urine Clarity Clear (Clear) Urine pH 7.0 (5.0-9.0) Urine Specific [place] 1.022 (1.001-1.035) Urine Protein Trace (Negative) Urine Ketones Negative (Negative) Urine Blood Negative /uL (Negative) Urine Nitrite Negative (Negative) Urine Bilirubin Negative (Negative) Urine Urobilinogen Normal mg/dL (Negative) Urine Leukocyte Esterase 1+ /uL (Negative) Urine RBC 12 /hpf (0 - 4) Urine Microscopic WBC 25 /HPF (0-5) Urine Squamous Epithelial Cells Few /hpf (<5) Urine Bacteria None seen /hpf (None Seen) Urine Yeast (Budding) Moderate /hpf (None Seen) Urine Glucose 4+ mg/dL (Normal) Test 04/07/25 08:18 04/07/25 07:35 04/07/25 06:50 Influenza Type A Antigen Negative (Negative) Influenza Type B Antigen Negative (Negative) SARS-CoV-2 Antigen (Rapid) Negative (NEGATIVE) Troponin I High Sensitivity 11 ng/L (</=34) B-Type Natriuretic Peptide 1050.11 pg/mL (0-100) Other Laboratory Tests 04/13/25 05:42 Brief Hx & Hospital Course: see dictated note Condition at Discharge: Fair Final Diagnosis/Problems List chf Discharge Disposition: Home Discharge Instruct/Medications Diet: Cardiac 2g Na,low cholest Activity: No Restrictions, As Tolerated Follow Up/Referral: fu with dr Talamantes in 1 wk Medications: resume home meds except nifedepine script to pharmacy Scheduled Amiodarone Hcl (Amiodarone Hcl), 200 MG PO DAILY, (Reported) Ascorbic Acid (Vitamin C Tablet), 500 MG PO BID Atorvastatin Calcium (Lipitor), 1 TAB PO QPM, (Reported) Dapagliflozin Propanediol (Farxiga), 5 MG PO DAILY, (Reported) Donepezil Hydrochloride (Donepezil Hcl), 1 TAB PO DAILY@DINNER, (Reported) Furosemide (Lasix), 1 TAB PO DAILY Ivabradine HCl (Ivabradine Hydrochloride), 5 MG PO BID Levofloxacin Hemihydrate (Levofloxacin), 1 TAB PO DAILY Lisinopril (Lisinopril), 10 MG PO DAILY Metformin Hydrochloride (Metformin Hcl), 1 TAB PO BID, (Reported) Metoprolol Tartrate (Metoprolol Tartrate), 0.5 TAB PO BID Nifedipine (Nifedipine Er), 1 TAB PO DAILY, (Reported) Scheduled PRN Albuterol Sulfate (Albuterol Sulfate Hfa), 2 PUFF IN Q6HP PRN for SHORTNESS OF BREATH, (Reported) Miscellaneous Medications Umeclidinium-Vilanterol (Anoro Ellipta 62.5-25 Mcg/INH), 1 AER IN, (Reported) Durable Medical Equipment Blood Glucose Monitoring Suppl (Easy Touch Glucose [place]), AC XX, (DME) Discharge Statement: "Patient was advised to return to the ER or call 911 if any headaches, dizziness, shortness of breath, chest pain, abdominal pain, bleeding, fevers, or worsening of medical condition. Patient was counseled about treatment plan, medications, possible side effects, patientverbalized understanding. All questions were answered to the best of my ability. This discharge took greater then 30 minutes in planning, reviewing documentation, counseling the patient, and discussing with other team members." ASSESSMENT ASSESSMENT Assessment chf Date of Service: Apr 13, 2025 Billing Provider: LINDA FLORES MD Common Visit Codes: 40420-KFJ/OBS DISCH DAY >30min LINDA FLORES MD Apr 13, 2025 12:13
[2025-04-13] MEDS ORDERED: FURO1TAB31 PO (12:17)
[2025-04-13] MEDS ORDERED: METO5TAB5 PO (12:17)
--- NOTE | 2025-04-13 12:26 | DVHDS ---
HISTORY OF PRESENT ILLNESS: The patient is an 84-year-old lady who was admitted with a history of increasing shortness of breath and had recently been discharged from the hospital. She has a history of congestive heart failure, COPD, chronic respiratory failure, atrial fibrillation, hypertension, diabetes, and hyperlipidemia. HOSPITAL COURSE: The patient had a chest x-ray that showed evidence of bilateral infiltrates. The patient was placed on diuretics, with improvement in her symptoms. She was seen in cardiology consult by Dr. Talamantes. BNP was elevated at 1050. The patient will now be discharged home to resume her home medications except for nifedipine. She will also be placed on Lasix 40 mg daily, with metolazone 5 mg twice a week. She will follow up with Dr. Talamantes in 1 week. FINAL DIAGNOSES: * [id number] diastolic heart failure. * Paroxysmal atrial fibrillation. * Questionable hypertensive urgency. * [id number] respiratory failure. * Pulmonary hypertension. * COPD exacerbation. * Diabetes type 2. * Hyperlipidemia. * Anemia. * UTI. Time spent on discharge planning, review of plan with the patient and nursing and the international travel consultant was 39 minutes. MD DANUTA Pierson/DIMAS TID: [id number] RECEIPT: [id number]
[2025-04-13] MEDS ORDERED: ALBUTEROL SULF 2.5 MG/0.5ML(0.5%) NEB SOLN ONE (17:48)
[2025-04-13] MEDS ORDERED: IPRATROPIUM BROM 0.5 MG/2.5ML INH SOL ONE (17:48)
== END 2025-04-13 17:32 | disposition home health service (06) | DRG 291 ==
LOC: ER 06:35 → EDBD 06:35 → OVERFLOW 12:23 → TELE-WESTW 22:03
PROVIDERS: ADMIT Internal Medicine; ATTEND Internal Medicine
DX: I11.0 Hypertensive heart disease with heart failure (principal); I50.33 Acute on chronic diastolic (congestive) heart failure; L89.153 Pressure ulcer of sacral region, stage 3; J96.21 Acute and chronic respiratory failure with hypoxia; J96.22 Acute and chronic respiratory failure with hypercapnia; I27.20 Pulmonary hypertension, unspecified; D64.9 Anemia, unspecified; I16.0 Hypertensive urgency; E11.9 Type 2 diabetes mellitus without complications; N39.0 Urinary tract infection, site not specified; J44.1 Chronic obstructive pulmonary disease with (acute) exacerbation; Z68.1 Body mass index [BMI] 19.9 or less, adult; Z20.822 Contact with and (suspected) exposure to COVID-19; R63.6 Underweight; E61.1 Iron deficiency; E78.5 Hyperlipidemia, unspecified; I48.0 Paroxysmal atrial fibrillation; E87.6 Hypokalemia; Z98.61 Coronary angioplasty status; Z87.891 Personal history of nicotine dependence; Z83.3 Family history of diabetes mellitus; Z82.49 Family history of ischemic heart disease and other diseases of the circulatory system; Z79.899 Other long term (current) drug therapy
CPT/HCPCS: 36415; 71045; 80048; 80053; 81001; 82962; 83735; 83880; 84484; 85025; 87077; 87081; 87086; 87205; 87426; 87804; 93005; 94640; 96374; 97110; 97116; 97163; 97530; 99291; G0378; J3490

== ENCOUNTER 2025-05-04 11:33 | Outpatient (CLI) | payer MEDICARE, OTHER ==
[~2025-05-04] VITALS: Ht 30.5 cm; Wt 0.5 kg
[~2025-05-04 11:33] MED LIST changes: +FURO1TAB31 PO; +METF-370 PO; +METO5TAB5 PO
[2025-05-04 11:41] VITALS: BP 92/59; PULSE 70; RESP 16; O2SAT 98
[2025-05-04] MEDS: CYANOCOBALAMIN (B-12) 1000 MCG/1 ML VIAL ONE (11:52)
[2025-05-04] MEDS: CYANOCOBALAMIN (B-12) 1000 MCG/1 ML VIAL IM ONE (11:56)
[2025-05-04 11:59] VITALS: BP 99/60; PULSE 79; RESP 16; O2SAT 98
== END 2025-05-04 17:00 | disposition home or self-care (01) ==
LOC: CHF HDHVI 11:33
PROVIDERS: ATTEND Internal Medicine Cardiovascular Disease
DX: D64.9 Anemia, unspecified (principal); I13.0 Hypertensive heart and chronic kidney disease with heart failure and stage 1 through stage 4 chronic kidney disease, or unspecified chronic kidney disease; E11.22 Type 2 diabetes mellitus with diabetic chronic kidney disease; I50.33 Acute on chronic diastolic (congestive) heart failure; N18.32 Chronic kidney disease, stage 3b; E11.65 Type 2 diabetes mellitus with hyperglycemia; J96.21 Acute and chronic respiratory failure with hypoxia; J44.1 Chronic obstructive pulmonary disease with (acute) exacerbation; E78.5 Hyperlipidemia, unspecified; I48.0 Paroxysmal atrial fibrillation; R53.83 Other fatigue; Z87.891 Personal history of nicotine dependence; Z87.440 Personal history of urinary (tract) infections; Z79.899 Other long term (current) drug therapy
CPT/HCPCS: 96372; G0463; J3420

== ENCOUNTER 2025-05-18 11:35 | Outpatient (CLI) | payer MEDICARE, OTHER ==
[2025-05-18 11:40] VITALS: BP 90/53; PULSE 70; RESP 16; O2SAT 97
[2025-05-18 12:20] VITALS: BP 93/57; PULSE 70; RESP 16; O2SAT 97
== END 2025-05-18 17:00 | disposition home or self-care (01) ==
LOC: CHF HDHVI 11:35
PROVIDERS: ATTEND Internal Medicine Cardiovascular Disease
DX: I50.9 Heart failure, unspecified (principal)
CPT/HCPCS: G0463